=== PATIENT | female | born 1945 | race Caucasian/White ===

== ENCOUNTER → 2023-05-18 15:58 | Outpatient (REF) | payer MEDICARE, SELFPAY | LOC: HWRCS 15:58 | PROVIDERS: ATTENDING PHYSICIAN Internal Medicine Cardiovascular Disease; FAMILY PHYSICIAN Internal Medicine | DX: I42.1 Obstructive hypertrophic cardiomyopathy (principal) | CPT/HCPCS: 93306 ==

== ENCOUNTER → 2023-05-21 10:24 | Outpatient (REF) | payer MEDICARE, SELFPAY ==
[2023-05-21 11:47] LABS: % Basophils 0.5 % (0-2); % Eosinophils 1.9 % (0-6); % Immature Granulocytes 0.4 % (0-0.5); % Lymphocytes 25.9 % (20.5-51.1); % Monocytes 8.6 % (1.7-9.3); % Neutrophils 62.7 % (42.2-75.2); Absolute Eosinophils 0.1 10^3/uL (0-0.7); Absolute Monocytes 0.7 10^3/uL (0.1-0.6); Absolute Neutrophils 4.7 10^3/uL (1.4-6.5); Hematocrit 44.8 % (37.0-47.0); Hemoglobin 14.8 g/dL (12.0-16.0); Mean Corpuscular Hgb 33.9 pg (27.0-31.0); Mean Corpuscular Volume 102.5 fL (81.0-99.0); Mean Platelet Volume 11.7 fL (7.4-10.4); Nucleated Red Blood Cells % 0 %; Platelet Count 195 10^3/uL (130-400); Red Blood Cell Count 4.37 10^6/uL (4.20-5.40); Red Cell Dist. Width 12.9 % (11.5-14.5); White Blood Cell Count 7.6 10^3/uL (4.8-10.8)
[2023-05-21 12:14] LABS: Glycohemoglobin (HgbA1c) 6.1 % (4.0-5.6)
[2023-05-21 12:20] LABS: ALT (SGPT) 29 U/L (0-35); AST (SGOT) 31 U/L (14-36); Albumin 3.8 g/dl (3.5-5.0); Alkaline Phosphatase 94 U/L (38-126); Blood Urea Nitrogen 29 mg/dl (7-17); Calcium 9.5 mg/dl (8.4-10.2); Carbon Dioxide 33 mmol/L (22-30); Chloride 102 mmol/L (98-107); Glucose 138 mg/dl (70-99); HDL Cholesterol 40 mg/dl; LDL Cholesterol, Calculated 105 mg/dl; Potassium 4.5 mmol/L (3.5-5.1); Sodium 140 mmol/L (135-145); Total Bilirubin 1.2 mg/dl (0.2-1.3); Total Cholesterol 186 mg/dl (50-199); Total Protein 6.8 g/dl (6.3-8.2); Triglyceride 208 mg/dl (10-149); Very Low Density Lipoprotein 41 mg/dl (0-30); eGFR > 60.00
[2023-05-21 12:51] LABS: TSH Reflex To Free T4 7.41 uIU/ml (0.47-4.68)
[2023-05-21 13:09] LABS: Vitamin B12 333 pg/ml (239-931)
[2023-05-21 13:17] LABS: Free T4 1.98 ng/dl (0.78-2.19)
== END ==
LOC: HWLAB 10:24
PROVIDERS: ATTENDING PHYSICIAN Internal Medicine
DX: I10 Essential (primary) hypertension (principal); E66.9 Obesity, unspecified; I87.2 Venous insufficiency (chronic) (peripheral); R79.0 Abnormal level of blood mineral; E53.8 Deficiency of other specified B group vitamins; E03.9 Hypothyroidism, unspecified
CPT/HCPCS: 36415; 80053; 80061; 82607; 83036; 83735; 84439; 84443; 85025

== ENCOUNTER → 2023-06-29 13:03 | Outpatient (REF) | payer MEDICARE, SELFPAY | LOC: RAD 13:03 | PROVIDERS: ATTENDING PHYSICIAN Specialist; FAMILY PHYSICIAN Internal Medicine | DX: M47.812 Spondylosis without myelopathy or radiculopathy, cervical region (principal); M54.16 Radiculopathy, lumbar region | CPT/HCPCS: 72125; 72131 ==

== ENCOUNTER → 2023-07-06 13:04 | Outpatient (REF) | payer MEDICARE, SELFPAY | LOC: HWRAD 13:04 | PROVIDERS: ATTENDING PHYSICIAN Specialist; FAMILY PHYSICIAN Internal Medicine | DX: M25.552 Pain in left hip (principal) | CPT/HCPCS: 73502 ==

== ENCOUNTER → 2023-08-19 13:28 | Outpatient (REF) | payer MEDICARE, SELFPAY | LOC: RAD 13:28 | PROVIDERS: ATTENDING PHYSICIAN Podiatrist Foot Surgery; FAMILY PHYSICIAN Internal Medicine | DX: E11.51 Type 2 diabetes mellitus with diabetic peripheral angiopathy without gangrene (principal) | CPT/HCPCS: 93922; 93925 ==

== ENCOUNTER → 2023-10-06 08:27 | Outpatient (REF) | payer MEDICARE, SELFPAY ==
[2023-10-06 09:41] LABS: % Basophils 0.7 % (0-2); % Eosinophils 1.3 % (0-6); % Immature Granulocytes 1.1 % (0-0.5); % Lymphocytes 22.2 % (20.5-51.1); % Monocytes 8.3 % (1.7-9.3); % Neutrophils 66.4 % (42.2-75.2); Absolute Basophils 0.1 10^3/uL (0-0.2); Absolute Eosinophils 0.1 10^3/uL (0-0.7); Absolute Immature Granulocytes 0.1 10^3/uL (0-0.05); Absolute Lymphocytes 1.6 10^3/uL (1.2-3.4); Absolute Monocytes 0.6 10^3/uL (0.1-0.6); Absolute Neutrophils 4.7 10^3/uL (1.4-6.5); Hemoglobin 14.8 g/dL (12.0-16.0); Mean Corp Hgb Conc. 33.6 g/dL (33.0-37.0); Mean Corpuscular Hgb 34.8 pg (27.0-31.0); Mean Corpuscular Volume 103.5 fL (81.0-99.0); Mean Platelet Volume 10.9 fL (7.4-10.4); Nucleated Red Blood Cells % 0 %; Platelet Count 176 10^3/uL (130-400); Red Blood Cell Count 4.25 10^6/uL (4.20-5.40); Red Cell Dist. Width 13.4 % (11.5-14.5); White Blood Cell Count 7.1 10^3/uL (4.8-10.8)
[2023-10-06 10:41] LABS: ALT (SGPT) 25 U/L (0-35); AST (SGOT) 28 U/L (14-36); Albumin 3.4 g/dl (3.5-5.0); Alkaline Phosphatase 74 U/L (38-126); Blood Urea Nitrogen 23 mg/dl (7-17); Calcium 9.3 mg/dl (8.4-10.2); Carbon Dioxide 27 mmol/L (22-30); Chloride 103 mmol/L (98-107); Glucose 149 mg/dl (70-99); Potassium 4.4 mmol/L (3.5-5.1); Sodium 137 mmol/L (135-145); Total Bilirubin 0.8 mg/dl (0.2-1.3); Total Protein 5.9 g/dl (6.3-8.2); eGFR > 60.00
== END ==
LOC: HWLAB 08:27
PROVIDERS: ATTENDING PHYSICIAN Podiatrist Foot Surgery; FAMILY PHYSICIAN Internal Medicine
DX: M20.42 Other hammer toe(s) (acquired), left foot (principal)
CPT/HCPCS: 36415; 80053; 85025

== ENCOUNTER → 2023-10-15 12:41 | Outpatient (REF) | payer MEDICARE, SELFPAY | LOC: WOUND 12:41 | PROVIDERS: ATTENDING PHYSICIAN Surgery; FAMILY PHYSICIAN Internal Medicine | DX: I87.312 Chronic venous hypertension (idiopathic) with ulcer of left lower extremity (principal); L97.221 Non-pressure chronic ulcer of left calf limited to breakdown of skin; I87.2 Venous insufficiency (chronic) (peripheral); E11.9 Type 2 diabetes mellitus without complications; E66.9 Obesity, unspecified; I10 Essential (primary) hypertension | CPT/HCPCS: 29581; 99203 ==

== ENCOUNTER → 2023-10-21 13:52 | Outpatient (REF) | payer MEDICARE, SELFPAY | LOC: WOUND 13:52 | PROVIDERS: ATTENDING PHYSICIAN Surgery; FAMILY PHYSICIAN Internal Medicine | DX: I87.312 Chronic venous hypertension (idiopathic) with ulcer of left lower extremity (principal); L97.221 Non-pressure chronic ulcer of left calf limited to breakdown of skin; I87.2 Venous insufficiency (chronic) (peripheral); E11.9 Type 2 diabetes mellitus without complications; E66.9 Obesity, unspecified; I10 Essential (primary) hypertension | CPT/HCPCS: 29581; 99213 ==

== ENCOUNTER → 2023-10-27 12:28 | Outpatient (REF) | payer MEDICARE, SELFPAY | LOC: WOUND 12:28 | PROVIDERS: ATTENDING PHYSICIAN Surgery; FAMILY PHYSICIAN Internal Medicine | DX: I87.312 Chronic venous hypertension (idiopathic) with ulcer of left lower extremity (principal); L97.221 Non-pressure chronic ulcer of left calf limited to breakdown of skin; I87.2 Venous insufficiency (chronic) (peripheral); E11.9 Type 2 diabetes mellitus without complications; E66.9 Obesity, unspecified; I10 Essential (primary) hypertension | CPT/HCPCS: 99212 ==

== ENCOUNTER → 2024-01-01 07:59 | Outpatient (REF) | payer MEDICARE, SELFPAY ==
[2024-01-01 09:26] LABS: % Basophils 0.8 % (0-2); % Eosinophils 1.9 % (0-6); % Immature Granulocytes 0.5 % (0-0.5); % Lymphocytes 24.6 % (20.5-51.1); % Monocytes 8.3 % (1.7-9.3); % Neutrophils 63.9 % (42.2-75.2); Absolute Basophils 0.1 10^3/uL (0-0.2); Absolute Eosinophils 0.1 10^3/uL (0-0.7); Absolute Lymphocytes 1.8 10^3/uL (1.2-3.4); Absolute Monocytes 0.6 10^3/uL (0.1-0.6); Absolute Neutrophils 4.8 10^3/uL (1.4-6.5); Hematocrit 45.6 % (37.0-47.0); Hemoglobin 15.1 g/dL (12.0-16.0); Mean Corp Hgb Conc. 33.1 g/dL (33.0-37.0); Mean Corpuscular Hgb 34.2 pg (27.0-31.0); Mean Corpuscular Volume 103.4 fL (81.0-99.0); Mean Platelet Volume 11.9 fL (7.4-10.4); Nucleated Red Blood Cells % 0 %; Platelet Count 196 10^3/uL (130-400); Red Blood Cell Count 4.41 10^6/uL (4.20-5.40); Red Cell Dist. Width 12.5 % (11.5-14.5); White Blood Cell Count 7.4 10^3/uL (4.8-10.8)
[2024-01-01 09:57] LABS: Erythrocyte Sed Rate 17 mm/hour (0-20)
[2024-01-03 10:52] LABS: Rheumatoid Agglutinin Less Than 10 IU (<10 IU)
== END ==
LOC: REG 07:59
PROVIDERS: ATTENDING PHYSICIAN Internal Medicine
DX: M25.559 Pain in unspecified hip (principal); M19.90 Unspecified osteoarthritis, unspecified site
CPT/HCPCS: 36415; 73502; 85025; 85652; 86430

== ENCOUNTER → 2024-02-09 11:44 | Outpatient (REF) | payer MEDICARE, SELFPAY | LOC: MRI 3T 11:44 | PROVIDERS: ATTENDING PHYSICIAN Specialist; FAMILY PHYSICIAN Internal Medicine | DX: M54.16 Radiculopathy, lumbar region (principal); M54.50 Low back pain, unspecified; M25.552 Pain in left hip | CPT/HCPCS: 72148; 73721 ==

== ENCOUNTER 2024-05-05 13:30 | Inpatient (IN) | payer MEDICARE, SELFPAY ==
[2024-05-03 16:03] VITALS: BP 148/85
--- NOTE | 2024-05-03 16:08 | ED.GENMED ---
ED Provider Triage
<Garrison Collins PA-C - Last Filed: 05/03/24 16:09>
-
Patient seen by provider in Triage?: Seen in Triage
Attestation: A medical screening examination has been initiated by a qualified medical provider. Based on the assessment performed at this time, it has been determined that an emergent medical condition may exist and the patient has been informed
that further medical evaluation and possible additional diagnostic testing may be needed.
HPI: 79-year-old female presents with family who states the patient is confused. She is hallucinating seeing people that are not there and talking to people that are not there. They noticed that her speech has been slow living usual. And overall
she is very weak. This is progressed over the last 2 weeks. Saw family doctor several days ago and was thought to potentially have dementia. She is also being treated for wounds on the lower legs. CT head chest x-ray COVID flu urinalysis and
labs ordered
GENERAL: Alert , in no apparent distress
EYE: No visual abnormalities.
NECK: Trachea midline
ENT: No visible abnormalities.
LUNGS: No acute respiratory distress
NEUROLOGICAL: Alert and oriented
SKIN: Skin intact. No visible changes.
MUSCULOSKELETAL: Moving extremities normally
PSYCH: Normal and appropriate interaction.
This is a medical evaluation conducted in person to initiate diagnostic evaluation and provide initial therapeutics. Please see further documentation by the treating clinician.
History of Present Illness
<Garrison Collins PA-C - Last Filed: 05/03/24 16:09>
General
Chief Complaint: Change in Mental Status
Time Seen by Provider: 05/03/24 19:27
<Josiah Garner MD - Last Filed: 05/04/24 03:10>
General
Source: patient and family
Exam Limitations: none
Nursing documentation reviewed up to this point in time: agreed with
History of Present Illness
History of Present Illness:
Patient presents to ED accompanied by her daughter, who lives with the patient, secondary to increased confusion and slowed speech over the past 1 month, worsened over the past 1 week. Per daughter, patient has had multiple moments of
hallucinations, talking to people that are not present at the moment. Patient was evaluated by her primary care physician 2 days ago for similar complaint, along with ongoing right leg ulcer secondary to venous stasis. There was no formal
recommendation provided by primary care physician, although there is documentation of mild dementia noted on her chart. Today, daughter states that she received a phone call from patient while she was at work, requesting for her to come home.
Patient reported feeling confused and seeing people that are not in the house. Daughter spoke with patient's primary Siva's office who advised patient come to ED for an evaluation. Otherwise, patient has been eating and drinking as usual. Denies
recent illness. Denies recent change in medications or diet. Denies previous history of similar symptoms. Patient does have erratic sleeping pattern, according to daughter.
Past History
<Garrison Collins PA-C - Last Filed: 05/03/24 16:09>
Past History
ED Past Medical History: Arrthythmia (V. tach), HTN, Hypercholesterolemia, Hypothyroidism and Other (RA, colon Polyps)
ED Past Surgical History: Cholecystectomy, Gynecological (Hysterectomy), Orthopedic (bilateral knee replacements) and Other (noncontributory )
Social History
Tobacco: Former smoker (quit 20 years ago)
Alcohol: None
Drug: None
Personal:
Living: with family
Employment: Retired
Family History
Family History: Other (n/c)
Review of Systems
<Josiah Garner MD - Last Filed: 05/04/24 03:10>
Review of Systems
Allergies reviewed?: Yes
All Other Systems: ROS reviewed and negative except as documented in HPI and ROS
Constitutional: Reports no symptoms; Denies fever
EENT: Reports no symptoms
Respiratory: Reports no symptoms; Denies cough
Cardiac: Reports no symptoms
ABD/GI: Reports no symptoms; Denies vomiting or diarrhea
: Reports no symptoms
Musculoskeletal: Reports no symptoms
Skin: Reports other (Leg wound)
Neurological: Reports other (Confusion)
Psychiatric: Reports hallucinations
Phy Exam
<Josiah Garner MD - Last Filed: 05/04/24 03:10>
Physical Exam
Physical Exam:
Physical Exam
General: no apparent distress, not acutely ill. afebrile
Head: nc/at. eomi
Neck: supple. normal range of motion.
Heart: s1/s2 regular rate and rhythm, no murmur.
Lungs: no acute respiratory distress. clear bilaterally
Abdomen: normal bowel sounds. not tender.
Neuro: alert and oriented x 3. no focal neurological deficits. normal speech.
Skin: b/l chronically appearing edema with superficial ulcer noted over RLE without warmth/tenderness/purulent drainage
Psychiatric: well kept. interactive and cooperative
Extremities: no edema. no calf tenderness.
Course
<Garrison Collins PA-C - Last Filed: 05/03/24 16:09>
Orders/Labs/Results
Orders:
Orders
05/03/24 16:04
CT Head W/o Iv Contrast Urgent
Comment:
Reason For Exam: confusion
05/03/24 16:06
CR Chest - 2 Views Urgent
Comment:
Reason For Exam: sob
05/03/24 16:22
COVID-19 Antigen Urgent
Source: Nasal Swab
Influenza A+B Rapid Molecular Urgent
HEATHER Source: Nasal Swab
Specimen Description:
05/03/24 16:23
Complete Blood Count/With Diff Urgent
Comprehensive Metabolic Panel Urgent
Free T4 Urgent
Magnesium Urgent
TSH Reflex To Free T4 Urgent
Comment: ADD ON
Vitamin B12 Urgent
Comment: ADD ON
02/26/25 19:43
Add On- LAB Urgent
Tests Added?: magnesium, TSH to reflex free T4, vitamin B12
05/03/24 20:58
0.9% Sodium Chloride 500 ml [Nss] 500 ml IV BOLUS
05/03/24 21:12
Blood Culture Q30M
HEATHER Source: Blood/Venous
Specimen Description:
Blood Culture Q30M
HEATHER Source: Blood/Venous
Specimen Description:
05/03/24 22:32
Urinalysis Reflex To Culture Urgent
Date Specimen was Collected: 05/03/24
Time Specimen was Collected: 19:37
Urine Microscopic Reflex Cult Urgent
05/03/24 23:00
Flush (0.9% Sodium Chloride) [Flush (Nss)] See Dose Instructions IV PER PROTOCOL
05/03/24 23:23
Admit/Transfer Patient As Directed
Co-Sign Provider:
Level of Care: Observation services
Assign to:: Medical/Surgical
Physician / Group: peggy
Diagnosis: hallucinations
Code Status As Directed
Resuscitation Status: Full Code
PRN Pain Medication Management As Directed
May give lesser potent ordered pain med per pt: Yes
preference::
Protocol:: Medication orders for pain may be administered in a
manner that supports deferring to patient preference
when the pt is:
- Requesting an ordered lesser potent pain medication.
Least to most potent pain medications are defined
as: acetaminophen < NSAID < tramadol < opioids
(morphine, oxycodone, hydromorphone).
- Requesting a lesser dose of the same medication IF
ORDERED.
- Requesting a less intrusive route of administration
if both routes are prescribed by the provider (PO <
IV).
05/04/24 01:36
WOUND/OSTOMY CONSULT Routine
Reason for Consult: right leg
VTE Contraindication Routine
VTE Mechanical Device Contraindication: Medical Contraindication
Pharmocologic Contraindication: Medical Contraindication
Activity As Directed
Activity Level: As Tolerated
Vital Signs As Directed
Frequency: Per unit guidelines
05/04/24 06:00
Complete Blood Count/With Diff IN AM
Comprehensive Metabolic Panel IN AM
Levothyroxine [Synthroid] 137 mcg PO DAILY @ 0600
05/04/24 08:00
Amiodarone [Pacerone] 200 mg PO DAILY
Apixaban [Eliquis] 5 mg PO BID
Calcium Carbonate/Vitamin D3 [Oscal 500 + D] 500 mg PO BID
Cyanocobalamin [Vitamin B-12] 1,000 mcg PO DAILY
Magnesium Oxide 500 mg PO DAILY
Metoprolol Xl [Toprol Xl] 25 mg PO BID
Metoprolol Xl [Toprol Xl] 50 mg PO BID
Multivitamin [Theragran] 1 tablet PO DAILY
05/04/24 Dinner
Regular
At Your Request: Full Participation
05/04/24 22:00
Melatonin 5 mg PO HS
Abnormal Lab Results
05/03/24 05/03/24
16:23 22:32
MCV 104.3 H fL
(81.0-99.0)
MCH 33.6 H pg
(27.0-31.0)
MCHC 32.2 L g/dL
(33.0-37.0)
RDW 15.6 H %
(11.5-14.5)
MPV 11.3 H fL
(7.4-10.4)
Absolute Lymphs (auto) 1.1 L 10^3/uL
(1.2-3.4)
Lymphocytes % 15.6 L %
(20.5-51.1)
Potassium 5.2 H mmol/L
(3.5-5.1)
Carbon Dioxide 32 H mmol/L
(22-30)
BUN 41 H mg/dl
(7-17)
Creatinine 1.1 H mg/dL
(0.6-1.0)
Glucose 138 H mg/dl
(70-99)
TSH (Reflex) 6.49 H uIU/ml
(0.47-4.68)
Urine Bacteria (Reflex) Few A
(Negative)
Urine Albumin (Reflex) 1+ A
(Neg - Trace)
05/03/24 16:23
05/03/24 16:23
Vital Signs
Initial and Last Documented VS:
Initial Vital Signs
Pulse Resp BP Pulse Ox
63 20 148/85 97
05/03/24 16:03 05/03/24 16:03 05/03/24 16:03 05/03/24 16:03
Last Documented Vital Signs
Pulse Resp BP Pulse Ox
60 16 123/75 94
05/03/24 20:39 05/03/24 20:39 05/03/24 18:39 05/03/24 18:39
<Josiah Garner MD - Last Filed: 05/04/24 03:10>
Orders/Labs/Results
Orders:
Orders
05/03/24 16:04
CT Head W/o Iv Contrast Urgent
Comment:
Reason For Exam: confusion
05/03/24 16:06
CR Chest - 2 Views Urgent
Comment:
Reason For Exam: sob
05/03/24 16:22
COVID-19 Antigen Urgent
Source: Nasal Swab
Influenza A+B Rapid Molecular Urgent
HEATHER Source: Nasal Swab
Specimen Description:
05/03/24 16:23
Complete Blood Count/With Diff Urgent
Comprehensive Metabolic Panel Urgent
Free T4 Urgent
Magnesium Urgent
TSH Reflex To Free T4 Urgent
Comment: ADD ON
Vitamin B12 Urgent
Comment: ADD ON
05/03/24 19:43
Add On- LAB Urgent
Tests Added?: magnesium, TSH to reflex free T4, vitamin B12
05/03/24 20:58
0.9% Sodium Chloride 500 ml [Nss] 500 ml IV BOLUS
05/03/24 21:12
Blood Culture Q30M
HEATHER Source: Blood/Venous
Specimen Description:
Blood Culture Q30M
HEATHER Source: Blood/Venous
Specimen Description:
05/03/24 22:32
Urinalysis Reflex To Culture Urgent
Date Specimen was Collected: 05/03/24
Time Specimen was Collected: 19:37
Urine Microscopic Reflex Cult Urgent
05/03/24 23:00
Flush (0.9% Sodium Chloride) [Flush (Nss)] See Dose Instructions IV PER PROTOCOL
05/03/24 23:23
Admit/Transfer Patient As Directed
Co-Sign Provider:
Level of Care: Observation services
Assign to:: Medical/Surgical
Physician / Group: peggy
Diagnosis: hallucinations
Code Status As Directed
Resuscitation Status: Full Code
PRN Pain Medication Management As Directed
May give lesser potent ordered pain med per pt: Yes
preference::
Protocol:: Medication orders for pain may be administered in a
manner that supports deferring to patient preference
when the pt is:
- Requesting an ordered lesser potent pain medication.
Least to most potent pain medications are defined
as: acetaminophen < NSAID < tramadol < opioids
(morphine, oxycodone, hydromorphone).
- Requesting a lesser dose of the same medication IF
ORDERED.
- Requesting a less intrusive route of administration
if both routes are prescribed by the provider (PO <
IV).
05/04/24 01:36
WOUND/OSTOMY CONSULT Routine
Reason for Consult: right leg
VTE Contraindication Routine
VTE Mechanical Device Contraindication: Medical Contraindication
Pharmocologic Contraindication: Medical Contraindication
Activity As Directed
Activity Level: As Tolerated
Vital Signs As Directed
Frequency: Per unit guidelines
05/04/24 06:00
Complete Blood Count/With Diff IN AM
Comprehensive Metabolic Panel IN AM
Levothyroxine [Synthroid] 137 mcg PO DAILY @ 0600
05/04/24 08:00
Amiodarone [Pacerone] 200 mg PO DAILY
Apixaban [Eliquis] 5 mg PO BID
Calcium Carbonate/Vitamin D3 [Oscal 500 + D] 500 mg PO BID
Cyanocobalamin [Vitamin B-12] 1,000 mcg PO DAILY
Magnesium Oxide 500 mg PO DAILY
Metoprolol Xl [Toprol Xl] 25 mg PO BID
Metoprolol Xl [Toprol Xl] 50 mg PO BID
Multivitamin [Theragran] 1 tablet PO DAILY
05/04/24 Dinner
Regular
At Your Request: Full Participation
05/04/24 22:00
Melatonin 5 mg PO HS
Abnormal Lab Results
05/03/24 05/03/24
16:23 22:32
MCV 104.3 H fL
(81.0-99.0)
MCH 33.6 H pg
(27.0-31.0)
MCHC 32.2 L g/dL
(33.0-37.0)
RDW 15.6 H %
(11.5-14.5)
MPV 11.3 H fL
(7.4-10.4)
Absolute Lymphs (auto) 1.1 L 10^3/uL
(1.2-3.4)
Lymphocytes % 15.6 L %
(20.5-51.1)
Potassium 5.2 H mmol/L
(3.5-5.1)
Carbon Dioxide 32 H mmol/L
(22-30)
BUN 41 H mg/dl
(7-17)
Creatinine 1.1 H mg/dL
(0.6-1.0)
Glucose 138 H mg/dl
(70-99)
TSH (Reflex) 6.49 H uIU/ml
(0.47-4.68)
Urine Bacteria (Reflex) Few A
(Negative)
Urine Albumin (Reflex) 1+ A
(Neg - Trace)
05/03/24 16:23
05/03/24 16:23
Vital Signs
Initial and Last Documented VS:
Initial Vital Signs
Pulse Resp BP Pulse Ox
63 20 148/85 97
05/03/24 16:03 05/03/24 16:03 05/03/24 16:03 05/03/24 16:03
Last Documented Vital Signs
Pulse Resp BP Pulse Ox
60 16 123/75 94
05/03/24 20:39 05/03/24 20:39 05/03/24 18:39 05/03/24 18:39
<Josiah Garner MD - Last Filed: 05/04/24 03:10>
MDM/Problems Addressed
MDM/Problems Addressed:
CT head: No acute findings. Patient's presenting symptoms likely multifactorial, including likely insomnia and/or dehydration, as evidenced by blood work along with clinical history of lack of oral intake at home. However, with patient's
presenting open wound, difficult to exclude potential infection as etiology for her symptoms or possible dementia. However, clinically, wound does not appear infected, more likely representation of underlying edema. As such, antibiotics will be
withheld. Blood culture pending. Patient will be admitted for further evaluation and treatment.
<Josiah Garner MD - Last Filed: 05/04/24 03:10>
*Critical Care Note
Total Time (30-74mins, 75-104mins- exclusive of procedures): Not Applicable
ED Attending Note
<Garrison Collins PA-C - Last Filed: 05/03/24 16:09>
-
Portions of this chart may have been created with voice recognition software.� Occasional wrong word or��sound alike� substitutions may have occurred due to the inherent limitations of voice recognition software.
Discharge Plan
Departure
Patient Disposition: Admit
Date of Disposition: 05/03/24
Time of Disposition: 22:47
Admit to: Med/Surg
Presentation/result/management discussed w/ accepting MD/DO: Hospitalist
Discharge Problem:
Altered mental status
Interventions
Interventions:
*Risk Screen - Suicide Last Done: 05/03/24 16:03
*General Assessment Last Done: 05/03/24 16:03
*Neglect/Abuse Screening Last Done: 05/03/24 16:03
*ED COVID-19 Vaccine History Last Done: 05/03/24 19:31
ED- Neurological Assessment Last Done: 05/03/24 19:53
ED Swallowing Screen Last Done: 05/03/24 19:53
[2024-05-03 16:34] LABS: % Basophils 0.3 % (0-2); % Eosinophils 1.1 % (0-6); % Immature Granulocytes 0.4 % (0-0.5); % Lymphocytes 15.6 % (20.5-51.1); % Monocytes 7.9 % (1.7-9.3); % Neutrophils 74.7 % (42.2-75.2); Absolute Eosinophils 0.1 10^3/uL (0-0.7); Absolute Lymphocytes 1.1 10^3/uL (1.2-3.4); Absolute Monocytes 0.6 10^3/uL (0.1-0.6); Absolute Neutrophils 5.3 10^3/uL (1.4-6.5); Hematocrit 46.3 % (37.0-47.0); Hemoglobin 14.9 g/dL (12.0-16.0); Mean Corp Hgb Conc. 32.2 g/dL (33.0-37.0); Mean Corpuscular Hgb 33.6 pg (27.0-31.0); Mean Corpuscular Volume 104.3 fL (81.0-99.0); Mean Platelet Volume 11.3 fL (7.4-10.4); Nucleated Red Blood Cells % 0 %; Platelet Count 149 10^3/uL (130-400); Red Blood Cell Count 4.44 10^6/uL (4.20-5.40); Red Cell Dist. Width 15.6 % (11.5-14.5); White Blood Cell Count 7.1 10^3/uL (4.8-10.8)
[2024-05-03 16:46] LABS: ALT (SGPT) 35 U/L (0-35); AST (SGOT) 35 U/L (14-36); Albumin 4.2 g/dl (3.5-5.0); Alkaline Phosphatase 109 U/L (38-126); Blood Urea Nitrogen 41 mg/dl (7-17); Calcium 9.7 mg/dl (8.4-10.2); Carbon Dioxide 32 mmol/L (22-30); Chloride 102 mmol/L (98-107); Glucose 138 mg/dl (70-99); Potassium 5.2 mmol/L (3.5-5.1); Sodium 140 mmol/L (135-145); Total Bilirubin 1.1 mg/dl (0.2-1.3); Total Protein 7.2 g/dl (6.3-8.2)
[2024-05-03 16:59] LABS: COVID-19 Antigen Negative (Negative)
[2024-05-03 18:39] VITALS: BP 123/75
[2024-05-03 20:20] LABS: Magnesium 2.3 mg/dl (1.6-2.3)
[2024-05-03 21:05] LABS: TSH Reflex To Free T4 6.49 uIU/ml (0.47-4.68)
[2024-05-03] MEDS: NSS 500 IV (21:11)
[2024-05-03 21:24] LABS: Vitamin B12 913 pg/ml (239-931)
[2024-05-03 21:32] LABS: Free T4 2.15 ng/dl (0.78-2.19)
[2024-05-03 22:37] LABS: Urine Albumin 1+ (Neg - Trace); Urine Bilirubin Negative (Negative); Urine Character Clear (Clear); Urine Color Yellow; Urine Glucose Negative (Negative); Urine Ketone Negative (Negative); Urine Leukocyte Negative (Negative); Urine Nitrite Negative (Negative); Urine Occult Blood Negative (Negative); Urine Specific Gravity 1.015 (<1.030); Urine Urobilinogen Negative (Neg - 1+)
[2024-05-03 22:50] LABS: Urine Bacteria Few (Negative); Urine Red Blood Cell 0-2 /HPF (0-2); Urine Squamous Cell 16-20 /LPF (Few); Urine White Cell 0-2 /HPF (0-5)
--- NOTE | 2024-05-03 23:26 | HPS.HSE ---
Family Physician
-
Family Physician: Jp Mccabe
Chief Complaint
-
hallucinations
History of Present Illness
79-year-old female past medical history of hypertrophic cardiomyopathy, ventricular tachycardia status post ICD, paroxysmal atrial fibrillation, hypertension, obesity, rheumatoid arthritis, presenting with confusion. She is hallucinating and seeing
people that are not there and talking to people that are not there. Her speech has been slower than usual. She feels weaker. This has progressed over the past 2 weeks.
She has a history of wounds on her legs. She had new wounds develop in the past 1 to 2 weeks. These wounds appeared after this onset hallucinations. She is supposed to see wound care but her doctor is on vacation.
She denies any new medications. Denies nausea or vomiting. Denies urinary symptoms or diarrhea. Denies any headache. Denies any numbness or tingling or focal weakness.
She has a history of insomnia but this has been worse recently. She is only been sleeping 3 to 4 hours which is a little less than her usual and waking up during sleep. Her mood has been feeling low recently but denies any depression or suicidal
thoughts.
She denies smoking or alcohol use.
Medical History
Past Medical History
Past Medical History: Reports Other (hypertrophic cardiomyopathy, ventricular tachycardia status post ICD, paroxysmal atrial fibrillation, hypertension, obesity, rheumatoid arthritis, )
Past Surgical History: Reports None
Social History
Tobacco: Non-smoker
Alcohol: None
Drug: None
Family History
Family History: Not pertinent
Allergies / Home Medications
Allergies reflects when Allergies were last updated in [facility].
Home Medications with original date entered in [facility]
Allergy/Medication List:
Allergies
Allergy/AdvReac Type Severity Reaction Status Date / Time
codeine Allergy Severe nausea/vomi Verified 05/03/24 16:10
ting
celecoxib Allergy Unknown stomach Verified 05/03/24 16:10
pains
Home Medications
calcium 250 mg (as phosphate)-vit D3 10 mcg (400 unit) chewable tablet (Caltrate Gummy Bites) 1 ea PO BID 02/19/17
apixaban 5 mg tablet (Eliquis) 5 mg PO BID #60 tabs 05/18/17
cyanocobalamin (vitamin B-12) 1,000 mcg tablet 1,000 mcg PO DAILY 02/19/18
magnesium oxide 500 mg PO DAILY ##30 02/21/18
amiodarone 200 mg tablet (Pacerone) 200 mg PO DAILY 12/23/18
levothyroxine 137 mcg tablet (Levoxyl) 137 mcg PO DAILY 05/03/24
lisinopril 20 mg tablet 20 mg PO DAILY 05/03/24
metoprolol succinate 25 mg tablet,extended release 24 hr 25 mg PO BID 05/03/24
metoprolol succinate 50 mg tablet,extended release 24 hr 50 mg PO BID 05/03/24
therapeutic multivitamin 1 tab PO DAILY 05/03/24
Review of Systems
-
History Source: Patient
A 12 point ROS was completed and negative except as noted: Yes
Constitutional: Reports No Symptoms
EENT: Reports No Symptoms
Respiratory: Reports No Symptoms
Cardiac: Reports No Symptoms
Abdomen/GI: Reports No Symptoms
: Reports No Symptoms
Musculoskeletal: Reports No Symptoms
Skin: Reports No Symptoms
Neurological: Reports No Symptoms
Endocrine: Reports No Symptoms
Hematologic/Lymphatic: Reports No Symptoms
Psych: Reports No Symptoms
Physical Exam
Vital Signs
Vital Signs
Pulse Resp BP Pulse Ox
60 16 123/75 94
05/03/24 20:39 05/03/24 20:39 05/03/24 18:39 05/03/24 18:39
Physical Exam
General: Well Developed, Well Nourished and No Apparent Distress
HEENT: NormoCephalic, Moist mucous membranes and Atraumatic
Respiratory: Clear
Cardiac: S1/S2 and Regular Rhythm; No Murmur or Rub
GI: Soft, Non Tender, Non Distended and Normal Bowel Sounds; No Organomegaly
Rectal: Deferred by Provider
Musculoskeletal: No Clubbing, No Cyanosis and No Edema
Skin: No Rash
Neuro: Nonfocal/grossly intact
Laboratory Results
-
05/03/24 16:23
05/03/24 16:23
Laboratory Results
Total Bilirubin 1.1 mg/dl (0.2-1.3) 05/03/24 16:23
AST 35 U/L (14-36) 05/03/24 16:23
ALT 35 U/L (0-35) 05/03/24 16:23
Alkaline Phosphatase 109 U/L (38-126) 05/03/24 16:23
Data Reviewed
-
Lab Data: Labs Reviewed by me
Old Records: Reviewed
Impression/Plan
-
IMPRESSION:
PLAN:
# Altered mental status/visual and auditory hallucinations likely secondary to insomnia
-Urinalysis unremarkable
-Chest x-ray unremarkable
-CT head shows no acute abnormality
-COVID and flu negative
-Blood cultures pending
-Melatonin
# Right lower extremity wounds
-Do not appear infected
-Wound care
# Slight SNOW
# Hyperkalemia
-IV fluids given, hold further fluids
-Hold lisinopril
Hypertrophic cardiomyopathy
-EF of 75%
Particular tachycardia status post ICD
Paroxysmal atrial fibrillation
-Continue amiodarone
-Continue Eliquis
-Continue metoprolol
Essential hypertension
-Hold lisinopril
Obesity
Rheumatoid arthritis
Hypothyroidism
-Continue levothyroxine
Full code
DVT prophylaxis�Eliquis
Regular diet
[2024-05-04] VITALS (8 sets, daily range): BP systolic 112–142; BP diastolic 57–77; BMI 43.0
[2024-05-04] MEDS: SYNTHROID 137 MCG PO (05:56)
[2024-05-04 07:48] LABS: % Basophils 0.4 % (0-2); % Eosinophils 1.8 % (0-6); % Immature Granulocytes 0.5 % (0-0.5); % Monocytes 8.9 % (1.7-9.3); % Neutrophils 68.4 % (42.2-75.2); Absolute Eosinophils 0.1 10^3/uL (0-0.7); Absolute Lymphocytes 1.1 10^3/uL (1.2-3.4); Absolute Monocytes 0.5 10^3/uL (0.1-0.6); Absolute Neutrophils 3.8 10^3/uL (1.4-6.5); Hematocrit 41.6 % (37.0-47.0); Hemoglobin 13.4 g/dL (12.0-16.0); Mean Corp Hgb Conc. 32.2 g/dL (33.0-37.0); Mean Corpuscular Volume 105.6 fL (81.0-99.0); Mean Platelet Volume 11.9 fL (7.4-10.4); Nucleated Red Blood Cells % 0 %; Platelet Count 130 10^3/uL (130-400); Red Blood Cell Count 3.94 10^6/uL (4.20-5.40); Red Cell Dist. Width 15.7 % (11.5-14.5); White Blood Cell Count 5.5 10^3/uL (4.8-10.8)
[2024-05-04 08:13] LABS: ALT (SGPT) 30 U/L (0-35); AST (SGOT) 30 U/L (14-36); Albumin 3.3 g/dl (3.5-5.0); Alkaline Phosphatase 86 U/L (38-126); Blood Urea Nitrogen 35 mg/dl (7-17); Calcium 9.2 mg/dl (8.4-10.2); Carbon Dioxide 32 mmol/L (22-30); Chloride 104 mmol/L (98-107); Glucose 206 mg/dl (70-99); Potassium 4.5 mmol/L (3.5-5.1); Sodium 139 mmol/L (135-145); Total Protein 5.9 g/dl (6.3-8.2); eGFR 56.95
[2024-05-04] MEDS: ELIQUIS 5 MG PO ×2 (08:18→20:11)
[2024-05-04] MEDS: PACERONE 200 MG PO (08:19)
[2024-05-04] MEDS: VITAMIN B-12 1000 MCG PO (08:19)
[2024-05-04] MEDS: THERAGRAN 1 TABLET PO (08:21)
[2024-05-04] MEDS: TOPROL XL 25 MG PO ×2 (08:21→20:11)
[2024-05-04] MEDS: TOPROL XL 50 MG PO ×2 (08:21→20:11)
[2024-05-04] MEDS: MAGNESIUM OXIDE 500 MG PO (08:21)
[2024-05-04] MEDS: OSCAL 500 + D 500 MG PO ×2 (08:22→20:11)
--- NOTE | 2024-05-04 09:05 | WOUNDNOTE ---
BILATERAL LOWER LEGS
--- NOTE | 2024-05-04 09:06 | WOUNDNOTE ---
BILATERAL LOWER LEGS
--- NOTE | 2024-05-04 09:06 | VATNOTE ---
RIGHT LOWER LEG
--- NOTE | 2024-05-04 09:07 | WOUNDNOTE ---
RIGHT LOWER LEG
--- NOTE | 2024-05-04 09:08 | WOUNDNOTE ---
LEFT HEEL/LEFT LOWER POSTERIOR LEG
--- NOTE | 2024-05-04 09:11 | WOUNDNOTE ---
RIGHT BREAST FOLD
--- NOTE | 2024-05-04 09:11 | WOUNDNOTE ---
RIGHT BREAST FOLD
--- NOTE | 2024-05-04 09:12 | WOUNDNOTE ---
SACRAL/COCCYX CREASE
--- NOTE | 2024-05-04 09:13 | WOUNDNOTE ---
SACRAL/COCCYX CREASE
--- NOTE | 2024-05-04 09:19 | WOUNDNOTE ---
LEFT BREAST FOLD
--- NOTE | 2024-05-04 09:22 | WOUNDNOTE ---
WO RN note: Patient admitted with hallucinations. Patient lives at home with daughter.
See H&P for complete history.
PMH: CM, lymphedema, ICD, a fib (Eliquis), HTN, obesity, RA, leg ulcers.
Wound Location and type/assessment: Patient admitted with: RLE dermal venous stasis ulcers, pink, moderate serous drainage. Skin mildly red around ulcer areas. +Hemosiderosis. +Palpable R pedal pulse. Sacral/coccyx blanchable red, MASD.
Ashwini/thigh/groin MASD. Abdominal and breast folds MASD. Patient wears knee high compression stockings (zipper type). Patient has an appointment at [facility] on Wednesday.
Appetite: good.
Pressure redistribution devices in place: ED stretcher. Patient can turn self. She likes the HOB elevated. MAGDA Yates plans to transfer patient onto a [facility] air bed. Spoke with [facility].
Plan: RLE dressing changed by MAGDA Chavez. Heels off bed with pillow. Knee high Josue wrap applied.
Will confirm orders with Dr. Giron and updated MAGDA Yates.
Care plan to be updated and will follow as needed.
Note to case management requested for discharge: VN. Patient interested.
Patient to follow up at wound care center upon discharge.
--- NOTE | 2024-05-04 09:25 | W.PN.HOSP.TC ---
Addendum entered and electronically signed by Chirag Giron MD 05/04/24 17:24:
She was on melatonin so maybe try Ambien tonight or trazodone.
Original Note:
Today's Communication/Plan
-
Melatonin
Assessment / Plan
Assessment / Plan
Physical exam:
General: Well Developed, Well Nourished and No Apparent Distress
HEENT: Normocephalic, Atraumatic and Moist Mucous Membranes
Respiratory: Clear to Auscultation; Negative Wheezes, Rales or Rhonchi
Cardiac: Regular Rhythm and S1/S2
GI: Soft, Nontender and Nondistended
Musculoskeletal: No Clubbing, No Cyanosis and No Edema
Neuro: Awake, Alert and Oriented
Psych: Calm
A/P:
# Altered mental status/visual and auditory hallucinations likely secondary to insomnia versus medications related
-Urinalysis unremarkable
-Chest x-ray unremarkable
-CT head shows no acute abnormality
-COVID and flu negative
-Blood cultures pending
-Start melatonin tonight
-[facility] today and not much they would offer as inpatient but available if needed (?amiodarone related but can discuss with cardiology outpatient).
-I tried to call today but unable to reach daughter
# Right lower extremity wounds
-Do not appear infected
-Wound care
# Renal insufficiency
# Hyperkalemia
-IV fluids given, hold further fluids
-Hold lisinopril
-Creatinine improved and potassium improved
Hypertrophic cardiomyopathy
-EF of 75%
Particular tachycardia status post ICD
Paroxysmal atrial fibrillation
-Continue amiodarone
-Continue Eliquis
-Continue metoprolol
Essential hypertension
-Hold lisinopril
Obesity
Rheumatoid arthritis
Hypothyroidism
-Continue levothyroxine
Full code
DVT prophylaxis�Eliquis
Anticipated Discharge: 24 - 48 hours
Subjective/Interval History
-
Date of Service: May 04, 2024
Patient still having some visual hallucinations. No fever.
Objective Data
-
Labs:
Laboratory Results
05/04/24
06:03
WBC 5.5
Hgb 13.4
Hct 41.6
Plt Count 130
Sodium 139
Potassium 4.5
Chloride 104
Carbon Dioxide 32 H
BUN 35 H
Creatinine 1.0
Glucose 206 H
Calcium 9.2
Total Bilirubin 1.0
AST 30
ALT 30
Alkaline Phosphatase 86
Vital Signs:
Vital Signs
Pulse Resp BP Pulse Ox
60 13 112/75 94
05/04/24 05:00 05/04/24 05:00 05/04/24 08:19 05/03/24 18:39
[2024-05-04 12:05] LABS: Glucose - Point of Care 147 mg/dl (70-99)
[2024-05-04] MEDS: NOVOLOG FLEXPEN-LOW RESISTANCE SC ×2 (13:00→18:52)
[2024-05-04 18:14] LABS: Glucose - Point of Care 137 mg/dl (70-99)
[2024-05-04] MEDS: DESENEX/MITRAZOL/ZEASORB TOPICAL (20:11)
[2024-05-04] MEDS: AMBIEN 5 MG PO (21:31)
[2024-05-04 21:35] LABS: Glucose - Point of Care 122 mg/dl (70-99)
--- NOTE | 2024-05-04 22:28 | PTCARENOTE ---
Patient arrived from ED. AAO x 4. Patient not actively having hallucinations upon arrival but, did confirm that she did have hallucinations, while down in the ED. Patient denies pain. Dual skin check completed with Sonali Romero RN. Per patient, she is
continent of urine but does have some stress/urgency incontinence. OOB x 1 assist with walker. Patient oriented to room, bed alarm in place. Patient educated on importance of utilizing call jeronimo. Bed in lowest position. Personal belongings within
reach.
[2024-05-05] MEDS: SYNTHROID 137 MCG PO (05:20)
[2024-05-05 07:30] VITALS: BP 134/69
[2024-05-05 07:30] LABS: Glucose - Point of Care 95 mg/dl (70-99)
[2024-05-05] MEDS: NOVOLOG FLEXPEN-LOW RESISTANCE SC ×2 (07:37→12:14)
[2024-05-05 07:40] VITALS: BMI 43.0
[2024-05-05] MEDS: HYDROPHOR 1 APPLIC TOPICAL (07:40)
[2024-05-05] MEDS: ELIQUIS 5 MG PO ×2 (07:40→20:40)
[2024-05-05] MEDS: TOPROL XL 25 MG PO ×2 (07:40→20:41)
[2024-05-05] MEDS: DESENEX/MITRAZOL/ZEASORB 1 APPLIC TOPICAL (07:40)
[2024-05-05] MEDS: VITAMIN B-12 1000 MCG PO (07:41)
[2024-05-05] MEDS: MAGNESIUM OXIDE 500 MG PO (07:41)
[2024-05-05] MEDS: TOPROL XL 50 MG PO ×2 (07:42→20:41)
[2024-05-05] MEDS: PACERONE 200 MG PO (07:42)
[2024-05-05] MEDS: OSCAL 500 + D 500 MG PO ×2 (07:42→20:40)
[2024-05-05] MEDS: THERAGRAN 1 TABLET PO (07:42)
[2024-05-05 08:05] LABS: % Basophils 0.3 % (0-2); % Eosinophils 1.4 % (0-6); % Immature Granulocytes 0.3 % (0-0.5); % Lymphocytes 22.5 % (20.5-51.1); % Monocytes 11.2 % (1.7-9.3); % Neutrophils 64.3 % (42.2-75.2); Absolute Eosinophils 0.1 10^3/uL (0-0.7); Absolute Lymphocytes 1.4 10^3/uL (1.2-3.4); Absolute Monocytes 0.7 10^3/uL (0.1-0.6); Absolute Neutrophils 4.1 10^3/uL (1.4-6.5); Hematocrit 41.8 % (37.0-47.0); Hemoglobin 13.4 g/dL (12.0-16.0); Mean Corp Hgb Conc. 32.1 g/dL (33.0-37.0); Mean Corpuscular Hgb 33.8 pg (27.0-31.0); Mean Corpuscular Volume 105.6 fL (81.0-99.0); Mean Platelet Volume 11.8 fL (7.4-10.4); Nucleated Red Blood Cells % 0 %; Platelet Count 137 10^3/uL (130-400); Red Blood Cell Count 3.96 10^6/uL (4.20-5.40); Red Cell Dist. Width 15.9 % (11.5-14.5); White Blood Cell Count 6.4 10^3/uL (4.8-10.8)
[2024-05-05 08:42] LABS: Blood Urea Nitrogen 33 mg/dl (7-17); Carbon Dioxide 30 mmol/L (22-30); Chloride 103 mmol/L (98-107); Estimated Creatinine Clearance 54 ml/min; Glucose 107 mg/dl (70-99); Potassium 4.7 mmol/L (3.5-5.1); Sodium 140 mmol/L (135-145)
--- NOTE | 2024-05-05 09:06 | W.PN.HOSP.TC ---
Addendum entered and electronically signed by Chirag Giron MD 05/05/24 14:05:
Will keep her on only IV cefazolin for now. Psychiatry consulted as well for hallucinations. Discussed with patient and daughter.
Addendum entered and electronically signed by Chirag Giron MD 05/05/24 13:32:
Blood cultures are positive on both bottles gram-positive cocci. Initiate IV antibiotics with cefazolin and vancomycin. ID consult. Cancel discharge for now.
Original Note:
Today's Communication/Plan
-
Discharge planning today
Assessment / Plan
Assessment / Plan
Physical exam:
General: Well Developed, Well Nourished and No Apparent Distress
HEENT: Normocephalic, Atraumatic and Moist Mucous Membranes
Respiratory: Clear to Auscultation; Negative Wheezes, Rales or Rhonchi
Cardiac: Regular Rhythm and S1/S2
GI: Soft, Nontender and Nondistended
Musculoskeletal: No Clubbing, No Cyanosis and No Edema
Neuro: Awake, Alert and Oriented
Psych: Calm
A/P:
# Altered mental status/visual and auditory hallucinations likely secondary to insomnia versus medications related
-Urinalysis unremarkable
-Chest x-ray unremarkable
-CT head shows no acute abnormality
-COVID and flu negative
-Blood cultures pending
-Start melatonin tonight
-Curbside psychiatry today and not much they would offer as inpatient but available if needed (?amiodarone related but can discuss with cardiology outpatient). I also discussed with patient if she would be okay to have psychiatry to see her as
inpatient but she prefers not at this point. We also talked about medications such as amiodarone as a possible cause for hallucinations beyond insomnia but I will have her discussed with cardiology at present and they can switch to another
antiarrhythmics as outpatient.
-I tried to call today but unable to reach daughter
# Right lower extremity wounds
-Do not appear infected
-Wound care
# Renal insufficiency
# Hyperkalemia
-IV fluids given, hold further fluids
-Hold lisinopril and resume as outpatient after follow-up BMP next week
-Creatinine improved and potassium improved
Hypertrophic cardiomyopathy
-EF of 75%
Particular tachycardia status post ICD
Paroxysmal atrial fibrillation
-Continue amiodarone
-Continue Eliquis
-Continue metoprolol
Essential hypertension
-Hold lisinopril
Obesity
Rheumatoid arthritis
Hypothyroidism
-Continue levothyroxine
Full code
DVT prophylaxis�Eliquis
Anticipated Discharge: Today
Subjective/Interval History
-
Date of Service: May 05, 2024
Patient still having some hallucinations but much less. Did have some sleep last night but not as much as expected either.
Objective Data
-
Labs:
Laboratory Results
05/05/24
06:03
WBC 6.4
Hgb 13.4
Hct 41.8
Plt Count 137
Sodium 140
Potassium 4.7
Chloride 103
Carbon Dioxide 30
BUN 33 H
Creatinine 1.1 H
Glucose 107 H
Calcium 9.0
Vital Signs:
Vital Signs
Temp Pulse Resp BP Pulse Ox
97.7 F 65 22 134/69 94
05/05/24 07:30 05/05/24 07:30 05/05/24 07:30 05/05/24 07:30 05/05/24 07:30
I&O
05/04/24 05/05/24 05/06/24
06:59 06:59 06:59
Intake Total 120 / 120
Balance 120 / 120
--- NOTE | 2024-05-05 10:58 | CM ---
CM reviewed chart, patient seen bedside, initial assessment completed. Patient resides with her daughter in a two story home, three steps to enter. Patient has a rollator and rolling walker at home, reports VN in past, unsure agency, SNF in past,
[facility]. Patient confirms PCP Jp Mcc[facility], [facility], confirms prescription coverage. Patient provided with SINGLETON form, refused to sign, aware of observation status. CM discussed PT recommendations of SNF vs VN, would like
to return home with services, agreeable to referral to [facility]. CM will continue to follow for all discharge planning needs.
Plan; home with [facility] pending acceptance
--- NOTE | 2024-05-05 11:49 | VNURNOTE ---
Home Health Liaison spoke with patient's daughter Vilma to discuss [facility] nurse/therapy, visits, schedule and homebound status. She is agreeable and understands that visits at home will be 2-3 x per week to assess and teach medical management. She is
aware that [facility] will contact them for start of care in 1-2 days after discharge from . [facility] referral completed in [facility].
[2024-05-05 12:12] LABS: Glucose - Point of Care 107 mg/dl (70-99)
--- NOTE | 2024-05-05 14:44 | CON.MD ---
Consultation - Medical
-
patient seen chart reviewed. spoke with nursing. tanvi at bedside. the patient is a very pleasant 79 year old who comes to w complaint of confusion. daughter noted that her speech seemed slower and she appeared weaker. the patient has no hx of
dementia but d felt she was less sharp in the past month. it is noted that she has stasis wounds on her lower legs and has been treating with the wound clinic. she has now been found to have bacteremia w blood culture + for gram + cocci. the
patient has complained for the last week of visual hallucinations occasionally. it does not happen on a daily basis and is momentary. she gave two examples. she saw a woman with curly hair out of the corner of her eye . when she turned again she
realized no one was there. another time she thought there was a staff member who told her he needed to get a pulse ox. in the next moment she realized no one was there. the patient is not particularly bothered by these hallucinations. she wondered
if she has PD. a friend has it and had hallucinations as a symptom. the patient does note a tremor at times but it sounds like an intention tremor. i did not note resting tremor and she did not appear to have cogwheeling at the wrists although
there might have been a tiny bit of stiffness initially. i asked if the patient has ever been told she has macular degeneration or other eye malady. she said her vision has been a bit blurrier lately but she had cataract surgery recently and no one
remarked that there were other issues. her mother had macular degeneration. noted patient has taken ambien but the sx preceded the ambien which can cause hallucinations rarely. patient denies depression. she does have hx of 'agoraphobia' and saw a
psychologist years ago but was never prescribed medication
past psych hx anxiety see above
medial hx leg ulcers htn obesity dm angina pud pad hocm hx v tach has an indwelling defibrillator hypothryoid osteoporosis TA Degen disc disease nasal congestion (has had sinus surgery ) she expressed concerns about her hearing and would
like audiometry at some point in the future. noted macrocytosis normal b12 tsh slightly inc with nl t4 bun 33 cr 1.1 a1c 6 qtc 378 patient takes amiodarone which can sometimes cause hallucinations cat scan and cxr without acute findings.
substance abuse none
fh depressio anxiety
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
mse alert ox3 cooperative pleasant in no distress. speech and thought process nl see above re description of hallucinations mood is euthymic affect normal no si aver intell insight judgment ok
dx hallucinations unknown etiology
recommendations i would not treat this with antipsychotics at this time. the hallucinations do not bother patient. they are momentary . she is keenly aware that there is no one there. she has no hx real hx of psych issues except some anxiety so
it is unlikely that a primary psych dx is the cause. i did not see evidence of significant cognitive decline .
the patient may have had a tiny stroke that is not evident on cat scan and might be seen on an mri, but given the defibrillator an mri would not be easy. would defer to neuro on this issue if they are consulted.
would not use ambien. suggest melatonin. by the way hallucinations at the onset and offset of sleep can be normal but these do not exclusively occur at that time. they could also be related to not sleeping. trazodone in very low doses might
also help w sleep.
consider a neuro consult . this could be related to early PD .
one could also opt to wait and see. her symptoms could also be related to bacteremia and will subside when the infection is adequately treated.
lastly she should have an eye exam at some point as her mother had macular degeneration and vero bonnet syndrome related to macular degeneration could be the cause.
psych will look in on her tomorrow
[2024-05-05 15:00] VITALS: BP 147/84
[2024-05-05 16:23] LABS: Glucose - Point of Care 169 mg/dl (70-99)
[2024-05-05] MEDS: ANCEF 10 IV (16:23)
[2024-05-05] MEDS: NOVOLOG FLEXPEN-LOW RESISTANCE 1 UNITS SC (16:24)
--- NOTE | 2024-05-05 17:46 | CON.ID ---
Consultation
-
Date/Time Consultation Requested: 05/05/2024 1333
Date/Time Consultation Performed: 05/05/2024 1740
Requesting Provider: Dr. Giron
Performing Provider: Dr. Tran
Reason for Consultation: Bacteremia
Chief Complaint / Past History
History of Present Illness
Pilar Rojo is an 79-year-old female being evaluated at the request of Dr. Giron regarding bacteremia. History is obtained from chart review and patient interview, although patient was able to provide little in the way of history.
The patient presented to [facility] ER on 05/03 for evaluation of confusion. She reportedly had visual hallucinations, and was found talking to people that were not present. Additionally her speech was noted to be slower than usual. Family
reports that these changes have progressed over the past 2 weeks. Patient recently had been in to see the family doctor who thought she may have had dementia. She was not found to have a leukocytosis at initial presentation, and has been afebrile.
Blood cultures obtained in the emergency room have now been found to be positive for gram-positive cocci in 1 bottle out of each of 2 sets. Infectious Diseases is asked to comment upon further antibiotic management.
Prior to admission, the patient denies any fevers or chills. She denies any pain. She denies any recent med changes. She denies any dysuria. She notes ongoing both visual and auditory hallucinations. They happen 1-2 times a day, but only last a
few seconds at a time.
Past History
Additional Past Medical History:
P A-fib
HTN
Obesity
Rheumatoid arthritis
Hypothyroidism
Hypertrophic cardiomyopathy
Additional Past Surgical History:
ICD placement
Cholecystectomy
Hysterectomy
Bilateral knee replacement
Carpal tunnel release surgery
Sinus surgery
Allergy History:
celecoxib Allergy (Verified 05/04/24 17:25)
stomach pains
codeine Allergy (Verified 05/04/24 17:25)
nausea/vomiting
Medications Reviewed: Yes
Current Antibiotics:
Cefazolin 2 g IV every 8 hours
Social History
Tobacco: Former Smoker
Alcohol: None
Drug: None
Employment: Retired
Family History
Family History: Not Pertinent
Review of Systems
Vital Signs
Temp Pulse Resp BP Pulse Ox
98.6 F 62 20 147/84 97
05/05/24 15:00 05/05/24 15:00 05/05/24 15:00 05/05/24 15:00 05/05/24 15:00
Physical Exam
Physical Exam
Constitutional: No Acute Distress, Comfortable, Non-toxic and Obese
Eyes: No Conjunctival Hemorrhage and Sclera Anicteric
Cardiovascular: S1/S2; Negative S3/S4
Pulmonary: Non Labored
Gastrointestinal: Soft, Non Tender and Non Distended
Extremities: Edema and Other (Bilateral Josue wrap's in place.); Negative Splinter Hemorrhage or Janeway Lesions
Neurological: Awake, Alert and Oriented
Psychological: Calm
.
Lab / Diagnostic Study Results
05/05/24 06:03
05/05/24 06:03
Abs Immat Gran (auto) 0.0 10^3/uL (0-0.05) 05/05/24 06:03
Absolute Neuts (auto) 4.1 10^3/uL (1.4-6.5) 05/05/24 06:03
Absolute Lymphs (auto) 1.4 10^3/uL (1.2-3.4) 05/05/24 06:03
Absolute Monos (auto) 0.7 10^3/uL (0.1-0.6) H 05/05/24 06:03
Absolute Basos (auto) 0.0 10^3/uL (0-0.2) 05/05/24 06:03
Immature Gran % 0.3 % (0-0.5) 05/05/24 06:03
Neutrophils % 64.3 % (42.2-75.2) 05/05/24 06:03
Lymphocytes % 22.5 % (20.5-51.1) 05/05/24 06:03
Monocytes % 11.2 % (1.7-9.3) H 05/05/24 06:03
Eosinophils % 1.4 % (0-6) 05/05/24 06:03
Basophils % 0.3 % (0-2) 05/05/24 06:03
Ur Squamous Epith Cells 16-20 /LPF (Few) 05/03/24 22:32
Microbiology Results
Micro:
05/03/24 21:12 Blood Culture - Preliminary
Blood/Venous Positive culture in progress
Gram Stain - Preliminary
05/03/24 21:12 Blood Culture - Preliminary
Blood/Venous Positive culture in progress
Gram Stain - Preliminary
05/04/24 06:03 MRSA Screen - Final
Nose No Methicillin Resistant Staphylococcus aureus isolated.
05/03/24 16:22 Influenza Types A & B (LAVIN) - Final
Nasal Swab Negative for Influenza A & B, NAAT
Negative results must be combined with clinical observations
and patient history.
Nucleic Acid Amplification test (NAAT)performed on the
[employer] platform.
Imaging:
05/03/2024 CT head without contrast: No acute intracranial abnormality noted.
05/18/2023 ECHO: Stage II diastolic dysfunction noted. EF approximately 70 to 75%. Aortic sclerosis without stenosis. Mild tricuspid regurgitation noted. Please see full study for additional detail.
Assessment / Plan
Reported visual and auditory hallucinations.
Positive blood cultures
pA-fib
HTN
Obesity
Rheumatoid arthritis
Hypothyroidism
Hypertrophic cardiomyopathy
Recommendations:
PCR testing on positive blood cultures do not reveal the presence of Staph aureus, and suggest the presence of coag negative staph.
Patient currently clinically stable, and without signs or symptoms of infection at present (remains afebrile, normal white count and without left shift), increasing the likelihood of contamination.
Will discontinue further antibiotics for the present. Should Staph aureus, or staph lugdunensis ultimately be recovered, patient would need to restart antibiotics and further workup for potential source can ensue.
--- NOTE | 2024-05-05 18:06 | CON.NEURO ---
Neuro Assessment/Plan
Assessment
Visual hallucinations due to Parkinson's disease
exam with parkinsonism
somewhat more symptomatic in the setting of bacteremia
Plan
Spoke with patient about my findings
none of this bothers her so no rx
Consultation
Order
Date of Consultation: 05/05/24
Requesting Provider: Chirag Giron
Reason for Consult: visual hallucinations
Subjective/Objective
Subjective Data
Date of Service: May 05, 2024
from psychiatry notes:
patient seen chart reviewed. spoke with nursing. tanvi at bedside. the patient is a very pleasant 79 year old who comes to w complaint of confusion. daughter noted that her speech seemed slower and she appeared weaker. the patient has no hx of
dementia but d felt she was less sharp in the past month. it is noted that she has stasis wounds on her lower legs and has been treating with the wound clinic. she has now been found to have bacteremia w blood culture + for gram + cocci. the
patient has complained for the last week of visual hallucinations occasionally. it does not happen on a daily basis and is momentary. she gave two examples. she saw a woman with curly hair out of the corner of her eye . when she turned again she
realized no one was there. another time she thought there was a staff member who told her he needed to get a pulse ox. in the next moment she realized no one was there. the patient is not particularly bothered by these hallucinations. she wondered
if she has PD.
because of this, neurology consultation was advised
the patient reports several years of worsening handwriting, and shuffling when she walks. she reports one fall 'because of the stupid dog'
Objective Data
Vital Signs
Temp Pulse Resp BP Pulse Ox
37.0 C 62 20 147/84 97
05/05/24 15:00 05/05/24 15:00 05/05/24 15:00 05/05/24 15:00 05/05/24 15:00
Lab Results
05/05/24 06:03
05/05/24 06:03
Sodium 140 mmol/L (135-145) 05/05/24 06:03
Potassium 4.7 mmol/L (3.5-5.1) 05/05/24 06:03
BUN 33 mg/dl (7-17) H 05/05/24 06:03
Glucose 107 mg/dl (70-99) H 05/05/24 06:03
Calcium 9.0 mg/dl (8.4-10.2) 05/05/24 06:03
Vitamin B12 913 pg/ml (239-931) 05/03/24 16:23
Patient Allergies
celecoxib Allergy (Verified 05/04/24 17:25)
stomach pains
codeine Allergy (Verified 05/04/24 17:25)
nausea/vomiting
Physical Exam
-
AAOx3, speech soft, clear
masked fascies
marked bradykinesia
minimal cogwheel rigidity with contralateral activation
Medications
-
Active Medications
Generic Name Dose Route Start Last Admin
Trade Name Freq PRN Reason Stop Dose Admin
Amiodarone HCl 200 mg 05/04/24 08:00 05/05/24 07:42
Amiodarone 200 Mg Tablet PO 06/01/24 07:59 200 mg
DAILY CHAO Administration
Apixaban 5 mg 05/04/24 08:00 05/05/24 07:40
Apixaban (Eliquis) 5 Mg Tablet PO 06/01/24 07:59 5 mg
BID CHAO Administration
Calcium/Vitamin D 500 mg 05/04/24 08:00 05/05/24 07:42
Calcium Carbonate 500 Mg/Vitamin D 5 Mcg (200 Units) Tablet PO 06/01/24 07:59 500 mg
BID CHAO Administration
Cyanocobalamin 1,000 mcg 05/04/24 08:00 05/05/24 07:41
Cyanocobalamin 1,000 Mcg Tablet PO 06/01/24 07:59 1,000 mcg
DAILY CHAO Administration
Dextrose 12.5 grams 05/04/24 09:27
Dextrose 50% (0.5 Grams/Ml) 50 Ml Syringe IV 06/01/24 09:26
[id number] PRN
hypoglycemia
Protocol
Emollient Ointment 0 applic 05/05/24 08:00 05/05/24 07:40
Petrolatum/Mineral Oil (Hydrophor) Oint 100 Gram TOPICAL 06/02/24 07:59 1 applic
DAILY CHAO Administration
Glucagon 1 mg 05/04/24 09:27
Glucagon 1 Mg Vial IM 06/01/24 09:26
PRN PRN
hypoglycemia
Protocol
Cefazolin Sodium 2 grams in 10 mls @ 120 mls/hr 05/05/24 14:00 05/05/24 16:23
Ancef IV 10 mls
Q8H CHAO Administration
Insulin Aspart 0 units 05/04/24 11:30 05/05/24 16:24
Insulin Aspart Low Resistance 300 Units/3 Ml Pen.Injctr SC 06/01/24 11:29 1 units
AC CHAO Administration
Protocol
Levothyroxine Sodium 137 mcg 05/04/24 06:00 05/05/24 05:20
Levothyroxine 137 Mcg Tablet PO 06/01/24 05:59 137 mcg
DAILY @ 0600 CHAO Administration
Magnesium Oxide 500 mg 05/04/24 08:00 05/05/24 07:41
Magnesium Oxide 500 Mg Tablet PO 06/01/24 07:59 500 mg
DAILY CHAO Administration
Melatonin 5 mg 05/05/24 22:00
Melatonin 5 Mg Tablet PO 06/02/24 21:59
HS CHAO
Metoprolol Succinate 50 mg 05/04/24 08:00 05/05/24 07:42
Metoprolol 50 Mg Extended Release Tablet PO 06/01/24 07:59 50 mg
BID CHAO Administration
Metoprolol Succinate 25 mg 05/04/24 08:00 05/05/24 07:40
Metoprolol 25 Mg Extended Release Tablet PO 06/01/24 07:59 25 mg
BID CHAO Administration
Miconazole Nitrate 0 applic 05/04/24 20:00 05/05/24 07:40
Miconazole Powder Bottle TOPICAL 06/01/24 19:59 1 applic
BID CHAO Administration
Multivitamins Therapeutic 1 tablet 05/04/24 08:00 05/05/24 07:42
Multivitamin Tablet PO 06/01/24 07:59 1 tablet
DAILY CHAO Administration
Sodium Chloride 0 flush 05/03/24 23:00
Sodium Chloride 0.9% (Flush) Syringe IV 05/31/24 22:59
PER PROTOCOL CHAO
Home Medications
�Medication �Instructions �Recorded
calcium 250 mg (as phosphate)-vit 1 ea PO BID Supplement 02/19/17
D3 10 mcg (400 unit) chewable
tablet (Caltrate Gummy Bites)
apixaban 5 mg tablet (Eliquis) 5 mg PO BID #60 tabs 05/18/17
cyanocobalamin (vitamin B-12) 1,000 mcg PO DAILY Supplement 02/19/18
1,000 mcg tablet
magnesium oxide 500 mg PO DAILY ##30 02/21/18
amiodarone 200 mg tablet (Pacerone) 200 mg PO DAILY Arrhythmia 12/23/18
levothyroxine 137 mcg tablet 137 mcg PO DAILY Thyroid 05/03/24
(Levoxyl)
lisinopril 20 mg tablet 20 mg PO DAILY Blood Pressure 05/03/24
metoprolol succinate 25 mg 25 mg PO BID Blood Pressure 05/03/24
tablet,extended release 24 hr
metoprolol succinate 50 mg 50 mg PO BID Blood Pressure 05/03/24
tablet,extended release 24 hr
therapeutic multivitamin 1 tab PO DAILY Supplement 05/03/24
melatonin 5 mg capsule 5 mg PO DAILY #30 caps 05/05/24
[2024-05-05] MEDS: MELATONIN 5 MG PO (20:45)
[2024-05-05] MEDS: DESENEX/MITRAZOL/ZEASORB TOPICAL (20:49)
[2024-05-05 21:16] LABS: Glucose - Point of Care 99 mg/dl (70-99)
[2024-05-05 23:10] VITALS: BP 135/73
[2024-05-06] MEDS: SYNTHROID 137 MCG PO (04:46)
[2024-05-06 07:00] VITALS: BP 125/66
[2024-05-06 07:15] LABS: Glucose - Point of Care 101 mg/dl (70-99)
[2024-05-06 08:40] LABS: Vitamin D, 25-OH*** 47.5 ng/mL (30-80)
[2024-05-06] MEDS: NOVOLOG FLEXPEN-LOW RESISTANCE SC ×3 (09:11→17:21)
[2024-05-06] MEDS: DESENEX/MITRAZOL/ZEASORB TOPICAL (09:12)
[2024-05-06] MEDS: VITAMIN B-12 1000 MCG PO (09:13)
[2024-05-06] MEDS: TOPROL XL 50 MG PO ×2 (09:13→20:28)
[2024-05-06] MEDS: THERAGRAN 1 TABLET PO (09:13)
[2024-05-06] MEDS: OSCAL 500 + D 500 MG PO ×2 (09:13→20:28)
[2024-05-06] MEDS: MAGNESIUM OXIDE 500 MG PO (09:13)
[2024-05-06] MEDS: TOPROL XL 25 MG PO ×2 (09:14→20:28)
[2024-05-06] MEDS: ELIQUIS 5 MG PO ×2 (09:14→20:28)
[2024-05-06] MEDS: PACERONE 200 MG PO (09:14)
--- NOTE | 2024-05-06 09:28 | W.PN.HOSP.TC ---
Today's Communication/Plan
-
Follow-up cultures.
Assessment / Plan
Assessment / Plan
Physical exam:
General: Well Developed, Well Nourished and No Apparent Distress
HEENT: Normocephalic, Atraumatic and Moist Mucous Membranes
Respiratory: Clear to Auscultation; Negative Wheezes, Rales or Rhonchi
Cardiac: Regular Rhythm and S1/S2
GI: Soft, Nontender and Nondistended
Musculoskeletal: No Clubbing, No Cyanosis and No Edema. Wounds the same
Neuro: Awake, Alert and Oriented
Psych: Calm
A/P:
Hallucinations:
Unclear etiology
Appreciated neurology and psychiatry consults-discussed with both of them.
One thing we all agree there is no need for antipsychotics or any other medications
PT OT
Positive blood cultures:
Contaminant (CONS) versus ?real pathogen
Off antibiotics
Appreciated ID consult (I started antibiotics but ID discontinued and seems reasonable)
Follow-up blood cultures
Probable Parkinson's disease:
Follow-up with neurology as outpatient
No need for further treatment at the moment
Toxic metabolic encephalopathy:
Resolved
Back to her baseline
Right lower extremity wounds:
Continue wound care
Does not appear infected
Hyperkalemia:
Resolved
Continue hold YONATHAN inhibitor and restart as outpatient if potassium remains normal
Renal insufficiency:
Continue to monitor renal function
Paroxysmal A-fib:
Rate control, metoprolol succinate 75 mg p.o. twice a day
Antiarrhythmics, amiodarone 200 years p.o. daily
Anticoagulation, Eliquis 5 mg twice a day
Hypertension:
Continue antihypertensives
Hypothyroidism:
Continue thyroid replacement
Rheumatoid arthritis:
Follow-up with rheumatology as outpatient
Hypertrophic cardiomyopathy:
Appears euvolemic
History of ICD
Obesity:
Lifestyle changes modification
DVT prophylaxis:
On Eliquis
CODE STATUS:
Full code
Total time spent on today's encounter was 52 minutes which included time spent in counseling the patient/family regarding diagnosis and treatment plan as listed above, goals of care, and symptom management. Case was discussed with nursing staff,
specialists, and care coordinators/case management. All labs and imaging personally reviewed by me. Remainder the time spent in detailed review of previous records, lab data, imaging, and other medical provider documentation.
Anticipated Discharge: 24 - 48 hours
Subjective/Interval History
-
Date of Service: May 06, 2024
Patient feels well today. Hallucination persists but not bothering her. Afebrile
Objective Data
-
Vital Signs:
Vital Signs
Temp Pulse Resp BP Pulse Ox
96.4 F L 62 18 125/66 94
05/06/24 07:00 05/06/24 07:00 05/06/24 07:00 05/06/24 07:00 05/06/24 07:00
I&O
05/05/24 05/06/24 05/07/24
06:59 06:59 06:59
Intake Total 120 / 120 960 / 960
Balance 120 / 120 960 / 960
[2024-05-06 09:29] LABS: Folate 16.4 ng/ml (2.76-20)
[2024-05-06 09:55] LABS: % Basophils 0.3 % (0-2); % Eosinophils 1.2 % (0-6); % Immature Granulocytes 0.3 % (0-0.5); % Lymphocytes 19.8 % (20.5-51.1); % Monocytes 8.4 % (1.7-9.3); Absolute Eosinophils 0.1 10^3/uL (0-0.7); Absolute Lymphocytes 1.4 10^3/uL (1.2-3.4); Absolute Monocytes 0.6 10^3/uL (0.1-0.6); Absolute Neutrophils 4.8 10^3/uL (1.4-6.5); Hematocrit 41.4 % (37.0-47.0); Hemoglobin 13.4 g/dL (12.0-16.0); Mean Corp Hgb Conc. 32.4 g/dL (33.0-37.0); Mean Corpuscular Volume 105.1 fL (81.0-99.0); Mean Platelet Volume 12.3 fL (7.4-10.4); Nucleated Red Blood Cells % 0 %; Platelet Count 127 10^3/uL (130-400); Red Blood Cell Count 3.94 10^6/uL (4.20-5.40); Red Cell Dist. Width 15.7 % (11.5-14.5); White Blood Cell Count 6.9 10^3/uL (4.8-10.8)
[2024-05-06] MEDS: HYDROPHOR 1 APPLIC TOPICAL (09:56)
--- NOTE | 2024-05-06 10:19 | CM ---
Plan is for patient to return to home when stable, with [facility], referral sent to [facility]
Plan; Patient prefers home with [facility] depending on progress with PT/OT.
[2024-05-06 11:02] LABS: Blood Urea Nitrogen 35 mg/dl (7-17); Calcium 9.2 mg/dl (8.4-10.2); Carbon Dioxide 27 mmol/L (22-30); Chloride 103 mmol/L (98-107); Estimated Creatinine Clearance 50 ml/min; Glucose 109 mg/dl (70-99); Potassium 4.7 mmol/L (3.5-5.1); Sodium 139 mmol/L (135-145); eGFR 45.76
[2024-05-06 11:35] LABS: Glucose - Point of Care 149 mg/dl (70-99)
--- NOTE | 2024-05-06 11:48 | W.PN.UPDATE ---
Update Note
Progress Note Update
Patient is doing well, denies hallucinations within the last 24 hours. She is in good mood, not depressed, appetite fair, denies insomnia.
No cognitive deficits were found.
For now I do not feel that antipsychotic medications are indicated as potential side effects would outweigh potential benefits.
[2024-05-06 15:00] VITALS: BP 123/60
[2024-05-06 17:11] LABS: Glucose - Point of Care 94 mg/dl (70-99)
[2024-05-06] MEDS: DESENEX/MITRAZOL/ZEASORB 1 APPLIC TOPICAL (20:29)
[2024-05-06 21:41] LABS: Glucose - Point of Care 139 mg/dl (70-99)
[2024-05-06] MEDS: MELATONIN 5 MG PO (21:59)
--- NOTE | 2024-05-06 22:25 | PTCARENOTE ---
Unable to obtain an oral and axillary temperature. Rectal temperature refused by patient. Patient does not feel cold on palpation, all other vital signs are WNL. Coloring is WNL, with no evidence of pallor. Provider, Zoe Wakefield, notified. Warm
blankets applied. Will reassess.
[2024-05-06 23:09] VITALS: BP 107/67
--- NOTE | 2024-05-06 23:35 | PTCARENOTE ---
patient oral temperature is now 98.1. provider notified
[2024-05-07] MEDS: SYNTHROID 137 MCG PO (04:38)
[2024-05-07 05:51] VITALS: BMI 41.9
[2024-05-07 07:30] LABS: Glucose - Point of Care 93 mg/dl (70-99)
[2024-05-07 07:33] VITALS: BP 110/58
[2024-05-07 07:56] LABS: Blood Urea Nitrogen 33 mg/dl (7-17); Calcium 9.3 mg/dl (8.4-10.2); Carbon Dioxide 32 mmol/L (22-30); Chloride 101 mmol/L (98-107); Estimated Creatinine Clearance 49 ml/min; Glucose 97 mg/dl (70-99); Potassium 4.8 mmol/L (3.5-5.1); Sodium 138 mmol/L (135-145); eGFR 45.76
[2024-05-07 08:14] LABS: % Basophils 0.5 % (0-2); % Eosinophils 1.8 % (0-6); % Immature Granulocytes 0.5 % (0-0.5); % Lymphocytes 24.1 % (20.5-51.1); % Monocytes 10.3 % (1.7-9.3); % Neutrophils 62.8 % (42.2-75.2); Absolute Eosinophils 0.1 10^3/uL (0-0.7); Absolute Lymphocytes 1.3 10^3/uL (1.2-3.4); Absolute Monocytes 0.6 10^3/uL (0.1-0.6); Absolute Neutrophils 3.5 10^3/uL (1.4-6.5); Hematocrit 42.4 % (37.0-47.0); Hemoglobin 13.6 g/dL (12.0-16.0); Mean Corp Hgb Conc. 32.1 g/dL (33.0-37.0); Mean Corpuscular Hgb 33.7 pg (27.0-31.0); Mean Platelet Volume 11.4 fL (7.4-10.4); Nucleated Red Blood Cells % 0 %; Platelet Count 132 10^3/uL (130-400); Red Blood Cell Count 4.04 10^6/uL (4.20-5.40); Red Cell Dist. Width 15.6 % (11.5-14.5); White Blood Cell Count 5.5 10^3/uL (4.8-10.8)
[2024-05-07] MEDS: NOVOLOG FLEXPEN-LOW RESISTANCE SC ×2 (08:23→11:01)
[2024-05-07] MEDS: MAGNESIUM OXIDE 500 MG PO (08:24)
[2024-05-07] MEDS: TOPROL XL 25 MG PO (08:24)
[2024-05-07] MEDS: THERAGRAN 1 TABLET PO (08:24)
[2024-05-07] MEDS: DESENEX/MITRAZOL/ZEASORB 1 APPLIC TOPICAL (08:24)
[2024-05-07] MEDS: OSCAL 500 + D 500 MG PO (08:24)
[2024-05-07] MEDS: ELIQUIS 5 MG PO (08:25)
[2024-05-07] MEDS: VITAMIN B-12 1000 MCG PO (08:25)
[2024-05-07] MEDS: TOPROL XL 50 MG PO (08:25)
[2024-05-07] MEDS: PACERONE 200 MG PO (08:25)
[2024-05-07] MEDS: HYDROPHOR 1 APPLIC TOPICAL (08:25)
--- NOTE | 2024-05-07 09:19 | W.PN.HOSP.TC ---
Today's Communication/Plan
-
Discharge planning today
Assessment / Plan
Assessment / Plan
Physical exam:
General: Well Developed, Well Nourished and No Apparent Distress
HEENT: Normocephalic, Atraumatic and Moist Mucous Membranes
Respiratory: Clear to Auscultation; Negative Wheezes, Rales or Rhonchi
Cardiac: Regular Rhythm and S1/S2
GI: Soft, Nontender and Nondistended
Musculoskeletal: No Clubbing, No Cyanosis and No Edema. Wounds the same
Neuro: Awake, Alert and Oriented
Psych: Calm
A/P:
Hallucinations:
Unclear etiology
Appreciated neurology and psychiatry consults-discussed with both of them.
One thing we all agree there is no need for antipsychotics or any other medications
PT OT
Positive blood cultures:
Contaminant (CONS)
Off antibiotics
Appreciated ID consult (I started antibiotics but ID discontinued and seems reasonable)
Probable Parkinson's disease:
Follow-up with neurology as outpatient
No need for further treatment at the moment
Toxic metabolic encephalopathy:
Resolved
Back to her baseline
Right lower extremity wounds:
Continue wound care
Does not appear infected
Hyperkalemia:
Resolved
Continue hold YONATHAN inhibitor and restart as outpatient if potassium remains normal
Renal insufficiency:
Continue to monitor renal function
Paroxysmal A-fib:
Rate control, metoprolol succinate 75 mg p.o. twice a day
Antiarrhythmics, amiodarone 200 years p.o. daily
Anticoagulation, Eliquis 5 mg twice a day
Hypertension:
Continue antihypertensives
Hypothyroidism:
Continue thyroid replacement
Rheumatoid arthritis:
Follow-up with rheumatology as outpatient
Hypertrophic cardiomyopathy:
Appears euvolemic
History of ICD
Obesity:
Lifestyle changes modification
DVT prophylaxis:
On Eliquis
CODE STATUS:
Full code
Anticipated Discharge: Today
Subjective/Interval History
-
Date of Service: May 07, 2024
Feels well. No fever
Objective Data
-
Labs:
Laboratory Results
05/07/24
05:41
WBC 5.5
Hgb 13.6
Hct 42.4
Plt Count 132
Sodium 138
Potassium 4.8
Chloride 101
Carbon Dioxide 32 H
BUN 33 H
Creatinine 1.2 H
Glucose 97
Calcium 9.3
Vital Signs:
Vital Signs
Temp Pulse Resp BP Pulse Ox
98.6 F 61 20 110/58 95
05/07/24 07:33 05/07/24 07:33 05/07/24 07:33 05/07/24 07:33 05/07/24 07:33
I&O
05/06/24 05/07/24 05/08/24
06:59 06:59 06:59
Intake Total 960 / 960 480 / 480
Balance 960 / 960 480 / 480
[2024-05-07 10:54] LABS: Glucose - Point of Care 143 mg/dl (70-99)
--- NOTE | 2024-05-07 12:01 | W.DCSUMMARY ---
Discharge Summary
Discharge Data
Date of Admission: 05/05/24
Date of Discharge: 05/07/24
-
Pending Results: No
Hospital Course
Patient 79 years old female with history of hypertension, obesity, rheumatoid arthritis, hypothyroidism, hypertrophic cardiomyopathy, A-fib came into the hospital with hallucinations. Patient was seen by psychiatry and felt there was no need for
antipsychotics and hallucinations will improve over time. She also was seen by neurology who feels she has some Parkinson's disease as well but no need for treatment at the moment but recommended continue outpatient follow-up. Patient also had
some blood cultures were positive and ID consulted but it turned out to be contaminant and antibiotics were discontinued. She had some wound in her legs and will continue wound care as outpatient but they did not seem infected. She remained
afebrile. She has remained hemodynamically stable. PT OT recommended home health. She feels back to her baseline. She will be discharged in stable condition today.
Discharge duration: 35 minutes
Discharge Plan
-
Patient Disposition: Home (Routine Discharge)
Discharge Diagnosis/Procedures: Hallucinations. Insomnia. Right lower extremity wounds. Paroxysmal atrial fibrillation.
Condition: Good
Diet: Low Cholesterol
Activity: As tolerated
Blood Work: Please PCP to order CBC, BMP within 1 week
Activity Restrictions/Additional Instructions:
Wound Care Instructions
RLE-clean with saline or Vashe wound cleanser, Aquaphor to dry skin le's, adaptic, ABD pad, secure with Kerlix, change daily and prn drainage (add alginate after adaptic prn large amount of drainage).
Miconazole powder to abdominal/groin/breast folds, sacral/coccyx crease, affected areas bid.
Bilateral knee high Josue wraps as tolerated; may remove q hs; re-wrap every morning.
Follow up at wound care center call for an appointment.
Referrals:
Sincere Pena MD [Active] - in two to four weeks
Jp Mccabe MD [Family Provider] - in less than 1 week
Prescriptions:
New
melatonin 5 mg capsule
5 mg PO DAILY Qty: 30 0RF
Continued
calcium phosphate-vitamin D3 [Caltrate Gummy Bites] 1 EACH tablet,chewable
1 ea PO BID
Eliquis 5 MG tablet
5 mg PO BID Qty: 60 11RF
cyanocobalamin (vitamin B-12) 1,000 MCG tablet
1,000 mcg PO DAILY
magnesium oxide 500 MG tablet
500 mg PO DAILY Qty: 30 3RF
amiodarone [Pacerone] 200 MG tablet
200 mg PO DAILY
levothyroxine [Levoxyl] 137 mcg Tablet
137 mcg PO DAILY
therapeutic multivitamin Tablet
1 tab PO DAILY
metoprolol succinate 25 mg Tablet Extended Release 24 Hr
25 mg PO BID
Rx Instructions:
take with 50mg for total of 75mg
metoprolol succinate 50 MG tablet extended release 24 hr
50 mg PO BID
Rx Instructions:
take with 25mg for total of 75mg
Held
lisinopril 20 mg Tablet
20 mg PO DAILY
Hold Instructions: Resume on 05/09/24.
Discharge Orders:
Discharge Patient (As Directed); Ordered 05/07/24
Ordered By: Chirag Giron
Discharge Date and Time
Discharge Date/Time: 05/07/24 14:18
Print Language: PERSIAN
[2024-05-07 13:06] VITALS: BP 134/78
--- NOTE | 2024-05-07 13:12 | CM ---
Home today with [facility].
Plan; Home with [facility]
== END 2024-05-07 14:18 | disposition home health service (06) | DRG 92 ==
LOC: 4 WEST ACU 13:30
PROVIDERS: Physician Assistant; ADMITTING PHYSICIAN Hospitalist; ATTENDING PHYSICIAN Hospitalist; CONSULT PHYSICIAN Psychiatry & Neurology Clinical Neurophysiology; CONSULT PHYSICIAN Psychiatry & Neurology Psychiatry; EMERGENCY PHYSICIAN Emergency Medicine; FAMILY PHYSICIAN Internal Medicine; OTHER PHYSICIAN Internal Medicine Infectious Disease
DX: G92.8 Other toxic encephalopathy (principal); I42.2 Other hypertrophic cardiomyopathy; R44.3 Hallucinations, unspecified; Z68.41 Body mass index [BMI] 40.0-44.9, adult; I47.20 Ventricular tachycardia, unspecified; L97.919 Non-pressure chronic ulcer of unspecified part of right lower leg with unspecified severity; G20.A1 Parkinson's disease without dyskinesia, without mention of fluctuations; I48.0 Paroxysmal atrial fibrillation; I10 Essential (primary) hypertension; E03.9 Hypothyroidism, unspecified; M06.9 Rheumatoid arthritis, unspecified; E66.9 Obesity, unspecified; Z11.52 Encounter for screening for COVID-19; G47.00 Insomnia, unspecified; Z87.891 Personal history of nicotine dependence; Z95.810 Presence of automatic (implantable) cardiac defibrillator; Z79.01 Long term (current) use of anticoagulants; Z79.890 Hormone replacement therapy; Z79.899 Other long term (current) drug therapy; Z90.710 Acquired absence of both cervix and uterus; Z96.653 Presence of artificial knee joint, bilateral; Z86.0100 Personal history of colon polyps, unspecified; E78.00 Pure hypercholesterolemia, unspecified; I87.8 Other specified disorders of veins; Z88.5 Allergy status to narcotic agent
CPT/HCPCS: 51701; 70450; 71046; 80048; 80053; 81003; 81015; 82306; 82607; 82746; 82962; 83036; 83735; 84439; 84443; 85025; 87040; 87070; 87147; 87150; 87186; 87205; 87502; 87811; 97163; 97166; 99285

== ENCOUNTER → 2024-05-08 12:34 | Outpatient (REF) | payer MEDICARE, SELFPAY | LOC: WOUND 12:34 | PROVIDERS: ATTENDING PHYSICIAN Surgery; FAMILY PHYSICIAN Internal Medicine | DX: I87.311 Chronic venous hypertension (idiopathic) with ulcer of right lower extremity (principal); L97.211 Non-pressure chronic ulcer of right calf limited to breakdown of skin; L97.311 Non-pressure chronic ulcer of right ankle limited to breakdown of skin; E11.9 Type 2 diabetes mellitus without complications; I87.2 Venous insufficiency (chronic) (peripheral); I10 Essential (primary) hypertension; Z87.891 Personal history of nicotine dependence | CPT/HCPCS: 29580; 99213 ==

== ENCOUNTER → 2024-05-15 11:21 | Outpatient (REF) | payer MEDICARE, SELFPAY | LOC: WOUND 11:21 | PROVIDERS: ATTENDING PHYSICIAN Surgery; FAMILY PHYSICIAN Internal Medicine | DX: I87.311 Chronic venous hypertension (idiopathic) with ulcer of right lower extremity (principal); L97.211 Non-pressure chronic ulcer of right calf limited to breakdown of skin; L97.311 Non-pressure chronic ulcer of right ankle limited to breakdown of skin; Z86.39 Personal history of other endocrine, nutritional and metabolic disease; Z87.891 Personal history of nicotine dependence; E11.9 Type 2 diabetes mellitus without complications; I87.2 Venous insufficiency (chronic) (peripheral); I10 Essential (primary) hypertension | CPT/HCPCS: 29580; 99213 ==

== ENCOUNTER → 2024-05-18 13:55 | Outpatient (REF) | payer MEDICARE, SELFPAY | LOC: WOUND 13:55 | PROVIDERS: ATTENDING PHYSICIAN Surgery; FAMILY PHYSICIAN Internal Medicine | DX: I87.311 Chronic venous hypertension (idiopathic) with ulcer of right lower extremity (principal); L97.211 Non-pressure chronic ulcer of right calf limited to breakdown of skin; L97.311 Non-pressure chronic ulcer of right ankle limited to breakdown of skin; E11.9 Type 2 diabetes mellitus without complications; I87.2 Venous insufficiency (chronic) (peripheral); I10 Essential (primary) hypertension; Z86.39 Personal history of other endocrine, nutritional and metabolic disease; Z87.891 Personal history of nicotine dependence | CPT/HCPCS: 29580; 99212 ==

== ENCOUNTER → 2024-05-22 11:11 | Outpatient (REF) | payer MEDICARE, SELFPAY | LOC: WOUND 11:11 | PROVIDERS: ATTENDING PHYSICIAN Surgery; FAMILY PHYSICIAN Internal Medicine | DX: I87.311 Chronic venous hypertension (idiopathic) with ulcer of right lower extremity (principal); L97.211 Non-pressure chronic ulcer of right calf limited to breakdown of skin; L97.311 Non-pressure chronic ulcer of right ankle limited to breakdown of skin; E11.9 Type 2 diabetes mellitus without complications; I87.2 Venous insufficiency (chronic) (peripheral); I10 Essential (primary) hypertension; Z86.39 Personal history of other endocrine, nutritional and metabolic disease; Z87.891 Personal history of nicotine dependence | CPT/HCPCS: 99212 ==

== ENCOUNTER → 2024-06-06 08:49 | Outpatient (REF) | payer MEDICARE, SELFPAY | LOC: WOUND 08:49 | PROVIDERS: ATTENDING PHYSICIAN Surgery; FAMILY PHYSICIAN Internal Medicine | DX: I87.311 Chronic venous hypertension (idiopathic) with ulcer of right lower extremity (principal); L97.211 Non-pressure chronic ulcer of right calf limited to breakdown of skin; E11.9 Type 2 diabetes mellitus without complications; I87.2 Venous insufficiency (chronic) (peripheral); I10 Essential (primary) hypertension; Z87.891 Personal history of nicotine dependence; Z86.39 Personal history of other endocrine, nutritional and metabolic disease | CPT/HCPCS: 29581; 99213 ==

== ENCOUNTER → 2024-06-13 10:25 | Outpatient (REF) | payer MEDICARE, SELFPAY | LOC: WOUND 10:25 | PROVIDERS: ATTENDING PHYSICIAN Surgery; FAMILY PHYSICIAN Internal Medicine | DX: I87.311 Chronic venous hypertension (idiopathic) with ulcer of right lower extremity (principal); L97.211 Non-pressure chronic ulcer of right calf limited to breakdown of skin; E11.9 Type 2 diabetes mellitus without complications; I87.2 Venous insufficiency (chronic) (peripheral); I10 Essential (primary) hypertension; Z86.39 Personal history of other endocrine, nutritional and metabolic disease; Z87.891 Personal history of nicotine dependence | CPT/HCPCS: 97597 ==

== ENCOUNTER 2024-06-16 21:19 | Emergency (ER) | payer MEDICARE, SELFPAY ==
[2024-06-16 21:22] VITALS: BP 164/105
--- NOTE | 2024-06-16 22:24 | ED.SKININJ ---
HPI-Injury
General
Chief Complaint: Skin Surface Trauma
Source: patient
Exam Limitations: none
Time Seen by Provider: 06/16/24 22:11
Nursing documentation reviewed up to this point in time: agreed with
History of Present Illness-Injury
Initial Injury comments:
79 yo female w h/o a fib on Eliquis HTN, pacemaker, cut her left ring finger on tuna fish can 2 hours ago at home. Unsure of last dT.
Past History
Past History
ED Past Medical History: Arrthythmia (V. tach), HTN, Hypercholesterolemia, Hypothyroidism and Other (RA, colon Polyps)
ED Past Surgical History: Cholecystectomy, Gynecological (Hysterectomy), Orthopedic (bilateral knee replacements) and Other (noncontributory )
Social History
Tobacco: Former smoker (quit 20 years ago)
Alcohol: None
Drug: None
Personal:
Living: with family
Employment: Retired
Family History
Family History: Other (n/c)
Review of Systems
Review of Systems
Allergies reviewed?: Yes
All Other Systems: ROS reviewed and negative except as documented in HPI and ROS
Skin: Reports other (cut left ring finger)
Phy Exam
Physical Exam
Physical Exam:
GENERAL: No acute distress. A&Ox3.
CONSTITUTIONAL: Afebrile.
RESPIRATORY: Regular respirations, nonlabored, lungs clear.
CARDIOVASCULAR: Regular rate and rhythm, no murmurs, no rubs.
MUSCULOSKELETAL: Moves with ease. Well perfused.
SKIN: Warm, dry, pink. 5 mm skin avulsion tip of left ring finger. Very slow venous oozing. Area cleansed with normal saline, Gelfoam, nonstick and 2 gauze dressing applied with good hemostasis
PSYCH: Normal mood and affect. Well kept, interactive and appropriate
NEUROLOGIC: Awake, alert and oriented. No focal neurological deficits
Course
Orders/Labs/Results
Orders:
Orders
06/16/24 22:24
Tetanus/Diphth/Acelpertussis [Adacel] 0.5 ml IM .ONCE ONE
Vital Signs
Initial and Last Documented VS:
Initial Vital Signs
Temp Pulse Resp BP Pulse Ox
98.1 F 80 16 164/105 98
06/16/24 21:22 06/16/24 21:22 06/16/24 21:22 06/16/24 21:22 06/16/24 21:22
Last Documented Vital Signs
Temp Pulse Resp BP Pulse Ox
98.1 F 80 16 126/67 98
06/16/24 21:22 06/16/24 21:22 06/16/24 21:22 06/16/24 22:29 06/16/24 21:22
MDM/Problems Addressed
MDM/Problems Addressed:
79 yo female w h/o a fib on Eliquis HTN, pacemaker, cut her left ring finger on tuna fish can 2 hours ago at home. Unsure of last tetanus immunization
Tdap updated
Wound cleansed with NSS, Gelfoam, nonstick and tubegauze dressing applied.
Bleeding controlled with dressing
Chronic conditions affecting care: Arrhythmia (A-fib on Eliquis)
*Critical Care Note
Total Time (30-74mins, 75-104mins- exclusive of procedures): Not Applicable
ED Attending Note
-
Portions of this chart may have been created with voice recognition software.� Occasional wrong word or��sound alike� substitutions may have occurred due to the inherent limitations of voice recognition software.
Discharge Plan
Departure
Patient Disposition: Home (Routine Discharge)
Date of Disposition: 06/16/24
Time of Disposition: 22:38
Patient with high blood pressure during this ER visit?: No
Condition: Good
Discharge Problem:
Avulsion of skin of finger
Instructions: Wound care - ED discharge instructions
Prescriptions:
No Action
calcium phosphate-vitamin D3 [Caltrate Gummy Bites] 1 EACH tablet,chewable
1 ea PO BID
Eliquis 5 MG tablet
5 mg PO BID Qty: 60 11RF
cyanocobalamin (vitamin B-12) 1,000 MCG tablet
1,000 mcg PO DAILY
magnesium oxide 500 MG tablet
500 mg PO DAILY Qty: 30 3RF
amiodarone [Pacerone] 200 MG tablet
200 mg PO DAILY
levothyroxine [Levoxyl] 137 mcg Tablet
137 mcg PO DAILY
lisinopril 20 mg Tablet
20 mg PO DAILY
therapeutic multivitamin Tablet
1 tab PO DAILY
metoprolol succinate 25 mg Tablet Extended Release 24 Hr
25 mg PO BID
Rx Instructions:
take with 50mg for total of 75mg
metoprolol succinate 50 MG tablet extended release 24 hr
50 mg PO BID
Rx Instructions:
take with 25mg for total of 75mg
melatonin 5 mg capsule
5 mg PO DAILY Qty: 30 0RF
Referrals:
Jp Mccabe MD [Family Provider] - As needed
Activity Restrictions/Additional Instructions:
As we discussed, remove the dressing on Wednesday. You may have to gently soak off the Gelfoam.
Wash the wound gently in the shower or bath as usual, apply antibiotic ointment and band aids.
Do this daily until well healed
Use the aluminum fingertip splint as needed for protection
Interventions
Interventions:
*Risk Screen - Suicide Last Done: 06/16/24 21:22
*General Assessment Last Done: 06/16/24 21:22
*Neglect/Abuse Screening Last Done: 06/16/24 21:22
*ED- Fall Risk Assessment Last Done: 06/16/24 21:22
*ED COVID-19 Vaccine History Last Done: 06/16/24 21:22
*Nursing Disposition Last Done: 06/16/24 22:57
ED-Skin Assessment Last Done: 06/16/24 22:56
Discharge Date and Time
Discharge Date/Time: 06/16/24 22:58
Print Language: NORWEGIAN
[2024-06-16 22:29] VITALS: BP 126/67
[2024-06-16] MEDS: ADACEL 0.5 ML IM (22:50)
== END 2024-06-16 22:58 | disposition home or self-care (01) ==
LOC: EMR 21:19
PROVIDERS: EMERGENCY PHYSICIAN Emergency Medicine; FAMILY PHYSICIAN Internal Medicine
DX: S61.205A Unspecified open wound of left ring finger without damage to nail, initial encounter (principal); W26.8XXA Contact with other sharp object(s), not elsewhere classified, initial encounter; I48.91 Unspecified atrial fibrillation; I10 Essential (primary) hypertension; Z95.0 Presence of cardiac pacemaker; Z87.891 Personal history of nicotine dependence; Z79.01 Long term (current) use of anticoagulants; Z23 Encounter for immunization
CPT/HCPCS: 99282; 90471; 90715

== ENCOUNTER → 2024-06-19 14:56 | Outpatient (REF) | payer MEDICARE, SELFPAY | LOC: WOUND 14:56 | PROVIDERS: ATTENDING PHYSICIAN Surgery; FAMILY PHYSICIAN Internal Medicine | DX: I87.311 Chronic venous hypertension (idiopathic) with ulcer of right lower extremity (principal); L97.211 Non-pressure chronic ulcer of right calf limited to breakdown of skin; Z86.39 Personal history of other endocrine, nutritional and metabolic disease; Z87.891 Personal history of nicotine dependence; E11.9 Type 2 diabetes mellitus without complications; I87.2 Venous insufficiency (chronic) (peripheral); I10 Essential (primary) hypertension | CPT/HCPCS: 29581; 99213 ==

== ENCOUNTER → 2024-06-27 14:31 | Outpatient (REF) | payer MEDICARE, SELFPAY | LOC: WOUND 14:31 | PROVIDERS: ATTENDING PHYSICIAN Surgery; FAMILY PHYSICIAN Internal Medicine | DX: I87.311 Chronic venous hypertension (idiopathic) with ulcer of right lower extremity (principal); L97.211 Non-pressure chronic ulcer of right calf limited to breakdown of skin; E11.9 Type 2 diabetes mellitus without complications; I87.2 Venous insufficiency (chronic) (peripheral); I10 Essential (primary) hypertension; Z86.39 Personal history of other endocrine, nutritional and metabolic disease; Z87.891 Personal history of nicotine dependence | CPT/HCPCS: 29581; 99213 ==

== ENCOUNTER → 2024-07-03 13:53 | Outpatient (REF) | payer MEDICARE, SELFPAY | LOC: WOUND 13:53 | PROVIDERS: ATTENDING PHYSICIAN Surgery; FAMILY PHYSICIAN Internal Medicine | DX: I87.311 Chronic venous hypertension (idiopathic) with ulcer of right lower extremity (principal); L97.211 Non-pressure chronic ulcer of right calf limited to breakdown of skin; E11.9 Type 2 diabetes mellitus without complications; I87.2 Venous insufficiency (chronic) (peripheral); I10 Essential (primary) hypertension; Z86.39 Personal history of other endocrine, nutritional and metabolic disease; Z87.891 Personal history of nicotine dependence | CPT/HCPCS: 99212 ==

== ENCOUNTER 2024-07-15 21:45 | Emergency (ER) | payer MEDICARE, SELFPAY ==
[2024-07-15 21:54] VITALS: BP 168/81
[2024-07-15 22:16] VITALS: BP 144/80
--- NOTE | 2024-07-15 23:00 | ED.GENMED ---
History of Present Illness
General
Chief Complaint: Oral/Mouth Problem
Source: patient and family
Time Seen by Provider: 07/15/24 22:52
History of Present Illness
History of Present Illness:
THis is an 79yo female on ELiquis who presents with bleeding from the underside of her tongue. Daughter states that her tongue got stuck in part of her metal dental apparatus. Patient offers no other complaints. She did not take tonight's Eliquis
dosing yet
Past History
Past History
ED Past Medical History: Arrthythmia (V. tach), HTN, Hypercholesterolemia, Hypothyroidism and Other (RA, colon Polyps)
ED Past Surgical History: Cholecystectomy, Gynecological (Hysterectomy), Orthopedic (bilateral knee replacements) and Other (noncontributory )
Social History
Tobacco: Former smoker (quit 20 years ago)
Alcohol: None
Drug: None
Personal:
Living: with family
Employment: Retired
Family History
Family History: Other (n/c)
Phy Exam
Physical Exam
Physical Exam:
CONSTITUTIONAL Vital signs reviewed, Patient alert and oriented to person, place and time. Well-appearing
HEAD atraumatic, normocephalic.
EYES eyelids normal to inspection, Extraocular muscles intact, Conjunctiva normal, Sclera normal.
ENT small skin flap laceration to the underside the left side of the tongue with active bleeding
NECK normal range of motion, Trachea midline, no jugular venous distention.
RESP no respiratory distress
BACK No obvious deformities
UPPER EXTREMITY Gross Range of motion normal, gross motor strength normal
LOWER EXTREMITY Gross range of motion normal, Gross motor strength normal
NEURO Speech normal, No focal motor deficits include, [place] coma scale 15, Memory normal, Cranial Nerves intact to screening exam.
SKIN Skin warm, dry, and normal in color.
PSYCHIATRIC Patient oriented to person place and time, Normal affect.
Course
Vital Signs
Initial and Last Documented VS:
Initial Vital Signs
Pulse Resp BP Pulse Ox
62 18 168/81 98
07/15/24 21:54 07/15/24 21:54 07/15/24 21:54 07/15/24 21:54
Last Documented Vital Signs
Pulse Resp BP Pulse Ox
60 18 144/80 98
07/15/24 22:16 07/15/24 22:16 07/15/24 22:16 07/15/24 22:16
Procedures
Laceration Closure
Tongue:
Status of Wound: clean
Description of Wound Edges: flap-well vascularized
Anesthesia: 1% Lidocaine with epi
Revision/Debridement: routine- no revision
Wound exploration: explored to base- no FB
Type of Closure: single layer closure
Number of sutures: 1
Additional information:
[id number] hemostatic stitch applied and hemostasis achieved
MDM/Problems Addressed
MDM/Problems Addressed:
Tongue laceration, therapeutic coagulopathy
*Pulse Oximetry
Patient hypoxic: no
*Critical Care Note
Total Time (30-74mins, 75-104mins- exclusive of procedures): Not Applicable
Data Reviewed
Source: patient and family
Prescriptions/Medications Considered But Not Given:
Considered 6-year-old Xarelto reversal but hemostatic stitch has resolved the bleeding
Patient Management
Escalation/DeEscalation of care consider admission/obs:
Hemostasis achieved with [id number] stitch and injection of lidocaine with epinephrine
ED Attending Note
-
Portions of this chart may have been created with voice recognition software.� Occasional wrong word or��sound alike� substitutions may have occurred due to the inherent limitations of voice recognition software.
Discharge Plan
Departure
Patient Disposition: Home (Routine Discharge)
Date of Disposition: 07/16/24
Time of Disposition: 00:05
Patient with high blood pressure during this ER visit?: No
Discharge Problem:
Tongue laceration
Prescriptions:
No Action
calcium phosphate-vitamin D3 [Caltrate Gummy Bites] 1 EACH tablet,chewable
1 ea PO BID
Eliquis 5 MG tablet
5 mg PO BID Qty: 60 11RF
cyanocobalamin (vitamin B-12) 1,000 MCG tablet
1,000 mcg PO DAILY
magnesium oxide 500 MG tablet
500 mg PO DAILY Qty: 30 3RF
amiodarone [Pacerone] 200 MG tablet
200 mg PO DAILY
levothyroxine [Levoxyl] 137 mcg Tablet
137 mcg PO DAILY
lisinopril 20 mg Tablet
20 mg PO DAILY
therapeutic multivitamin Tablet
1 tab PO DAILY
metoprolol succinate 25 mg Tablet Extended Release 24 Hr
25 mg PO BID
Rx Instructions:
take with 50mg for total of 75mg
metoprolol succinate 50 MG tablet extended release 24 hr
50 mg PO BID
Rx Instructions:
take with 25mg for total of 75mg
melatonin 5 mg capsule
5 mg PO DAILY Qty: 30 0RF
Referrals:
Caryn Hurley PA-C [Primary Care Provider] -
Activity Restrictions/Additional Instructions:
Tongue laceration
Please keep diet soft as discussed. Rinse twice daily as discussed. Return immediately for bleeding, swelling or any other concerns.
Interventions
Interventions:
*Risk Screen - Suicide Last Done: 07/15/24 21:58
*General Assessment Last Done: 07/15/24 22:15
*Neglect/Abuse Screening Last Done: 07/15/24 21:58
*ED- Fall Risk Assessment Last Done: 07/15/24 22:15
*ED COVID-19 Vaccine History Last Done: 07/15/24 22:10
Discharge Date and Time
Print Language: WELSH
== END 2024-07-16 00:20 | disposition home or self-care (01) ==
LOC: EMR 21:45
PROVIDERS: EMERGENCY PHYSICIAN Emergency Medicine; PRIMARYCARE PHYSICIAN Physician Assistant
DX: S01.512A Laceration without foreign body of oral cavity, initial encounter (principal); W45.8XXA Other foreign body or object entering through skin, initial encounter; Z98.818 Other dental procedure status; E03.9 Hypothyroidism, unspecified; E78.00 Pure hypercholesterolemia, unspecified; I10 Essential (primary) hypertension; Z87.891 Personal history of nicotine dependence; Z79.01 Long term (current) use of anticoagulants
CPT/HCPCS: 41250; 99282

== ENCOUNTER → 2024-08-08 11:34 | Outpatient (REF) | payer MEDICARE, SELFPAY | LOC: HWWDC 11:34 | PROVIDERS: ATTENDING PHYSICIAN Obstetrics & Gynecology Gynecology; FAMILY PHYSICIAN Internal Medicine | DX: Z12.31 Encounter for screening mammogram for malignant neoplasm of breast (principal) | CPT/HCPCS: 77063; 77067 ==

== ENCOUNTER 2024-08-23 10:37 | Outpatient (RCR) | payer MEDICARE, SELFPAY | END 2024-08-23 23:59 | disposition home or self-care (01) | LOC: RPT 10:37 | PROVIDERS: ATTENDING PHYSICIAN Internal Medicine; FAMILY PHYSICIAN Physician Assistant | DX: I89.0 Lymphedema, not elsewhere classified (principal); Z73.6 Limitation of activities due to disability; R26.2 Difficulty in walking, not elsewhere classified; R26.89 Other abnormalities of gait and mobility | CPT/HCPCS: 97162; 97530; 97760 ==

== ENCOUNTER 2024-09-05 06:16 | Day surgery (SDC) | payer MEDICARE, SELFPAY ==
[2024-09-05 10:15] VITALS: BP 122/71
[2024-09-05 10:42] VITALS: BMI 41.2
[2024-09-05 10:43] VITALS: BMI 41.2
[2024-09-05 12:06] VITALS: BP 99/63
[2024-09-05 12:15] VITALS: BP 96/64
[2024-09-05 12:30] VITALS: BP 94/59
[2024-09-05 12:45] VITALS: BP 111/70
[2024-09-05 13:00] VITALS: BP 122/75
== END 2024-09-05 13:21 | disposition home or self-care (01) ==
LOC: SDS 06:16
PROVIDERS: ATTENDING PHYSICIAN Specialist; FAMILY PHYSICIAN Physician Assistant
DX: Z12.11 Encounter for screening for malignant neoplasm of colon (principal); K63.5 Polyp of colon; K57.30 Diverticulosis of large intestine without perforation or abscess without bleeding; D17.5 Benign lipomatous neoplasm of intra-abdominal organs; K56.2 Volvulus; K64.4 Residual hemorrhoidal skin tags; Z86.0101 Personal history of adenomatous and serrated colon polyps
CPT/HCPCS: 45380; 88305

== ENCOUNTER 2024-09-13 03:00 | Emergency (ER) | payer MEDICARE, SELFPAY ==
[2024-09-13] VITALS (8 sets, daily range): BP systolic 94–147; BP diastolic 50–89; BMI 41.3
--- NOTE | 2024-09-15 02:57 | ED.GENMED ---
History of Present Illness
General
Chief Complaint: Nose Bleed
Source: patient
Time Seen by Provider: 09/13/24 03:23
Nursing documentation reviewed up to this point in time: agreed with
History of Present Illness
History of Present Illness:
Note:
CHIEF COMPLAINT(S)
Nosebleed.
HISTORY OF PRESENT ILLNESS
The patient is an 79-year-old female who presented with a nosebleed. The bleeding originated from the left nostril. Upon examination, there was significant bleeding, and a Merracelle sponge was inserted into the left nostril to apply pressure and
support hemostasis. Medications were also applied to assist in stopping the bleeding. The patient is currently on apixaban (Eloquist), and it was confirmed she had taken her last dose recently. The bleeding was observed to be coming primarily from
the nose, although there was also blood in the back of the throat, suggesting posterior involvement as well. Efforts were made to prevent blood from running down the throat, instructing the patient to lean forward.
SOCIAL HISTORY
The patient was noted to have left wine consumption, though no specific details on frequency or quantity were given.
MEDICATIONS
The patient is currently taking apixaban (Eloquist).
PHYSICAL EXAM
- Nose: Merracelle sponge packing placed in the left nostril; bleeding present in both anterior and posterior areas.
- Throat: Blood noted in the back of the throat.
PROBLEM LIST
Acute:
- Epistaxis (nosebleed)
PLAN
- Monitor the patient closely for bleeding cessation.
- Consider using a vasoconstrictor if bleeding continues despite initial interventions.
- Re-evaluate the patient in approximately 30 minutes to assess the effectiveness of the treatment and check for continued bleeding.
DIFFERENTIAL DIAGNOSIS
The Differential Diagnosis includes, in no particular order and is not limited to:
1. Anticoagulant-related bleeding
CARE-UPDATE
09/13/24 - 04:36
Pleading has not resumed; packing still in place.
Disposition:
SUMMARY OF ENCOUNTER
The patient is an 79-year-old female who presented to the emergency department with a nosebleed originating from the left nostril. A Merocel sponge was inserted to achieve hemostasis, and the bleeding subsided after treatment. The patient has been
under observation for over three hours, showing no further signs of bleeding, and she is stable.
DISPOSITION
Discharge
ASSESSMENT
The patient was treated for epistaxis likely exacerbated by her concurrent use of the anticoagulant apixaban (Eliquis).
REASSESSMENT
The patient has been reassessed, and no further bleeding is observed. She remains stable, with no new symptoms or complaints.
PLAN
The patient will be discharged with instructions to follow up with an ENT specialist for further evaluation and management as needed.
PROCEDURES
Merocel sponge packing was placed in the left nostril to control bleeding.
PATIENT EDUCATION AND COUNSELING
The patient was informed about the importance of following up with an ENT specialist and instructed on measures to prevent further nosebleeds, such as avoiding nose picking and hot environments. She was advised on positioning to minimize the risk of
blood running down the throat in case of recurrent bleeding.
FOLLOW-UP INSTRUCTIONS
Follow up with an ENT specialist as scheduled.
MEDICATION RECONCILIATION
The patient is currently on apixaban (Eliquis) for an unspecified condition.
MEDICAL DECISION MAKING
-Complexity of Data Reviewed: The differential diagnosis includes anticoagulant-related bleeding, trauma to the nasal passages, and hypertension-induced bleeding, among others.
-Data:
Category 3
Discussion of management with the patient and her family regarding follow-up care and potential precautions.
-Risk: Consideration of Admission/Observation: Escalation of care including admission/observation was considered given the complexity and risk of the patients presenting complaint, exam findings, and her underlying comorbidities. However, ultimately
I feel the patient is safe for outpatient management with close follow-up. Reasoning: Work-up reassuring, does not reveal any acute life/organ-threatening processes, patients symptoms well controlled upon reevaluation, reexamination is reassuring,
vitals are stable, patient agreeable with discharge, reliable for follow-up.
DIAGNOSIS
Epistaxis (nosebleed) - ICD-10: R04.0
Past History
Past History
ED Past Medical History: Arrthythmia (V. tach), HTN, Hypercholesterolemia, Hypothyroidism and Other (RA, colon Polyps)
ED Past Surgical History: Cholecystectomy, Gynecological (Hysterectomy), Orthopedic (bilateral knee replacements) and Other (noncontributory )
Social History
Tobacco: Former smoker (quit 20 years ago)
Alcohol: None
Drug: None
Personal:
Living: with family
Employment: Retired
Family History
Family History: Other (n/c)
Phy Exam
Physical Exam
Physical Exam:
.
Course
Vital Signs
Initial and Last Documented VS:
Initial Vital Signs
BP
147/89
09/13/24 03:02
Last Documented Vital Signs
Temp Pulse Resp BP Pulse Ox
98.0 F 60 16 113/50 98
09/13/24 08:05 09/13/24 08:05 09/13/24 08:05 09/13/24 08:05 09/13/24 08:05
Procedures
Nosebleed
Drug treatment: Epinephrine
Treatment: local pressure applied and Merocel packing
Post treatment bleeding: none- good control
*Pulse Oximetry
SaO2: 98
Oxygen Mode of Delivery: Room air
Patient hypoxic: no
*Critical Care Note
Total Time (30-74mins, 75-104mins- exclusive of procedures): Not Applicable
ED Attending Note
-
Portions of this chart may have been created with voice recognition software.� Occasional wrong word or��sound alike� substitutions may have occurred due to the inherent limitations of voice recognition software.
Discharge Plan
Departure
Patient Disposition: Home (Routine Discharge)
Date of Disposition: 07/09/25
Time of Disposition: 07:09
Patient with high blood pressure during this ER visit?: Yes
Condition: Fair
Discharge Problem:
Epistaxis
Instructions: Nosebleeds (DC), BLOOD PRESSURE
Prescriptions:
New
cephalexin 250 mg capsule
250 mg PO BID 7 Days Qty: 14 0RF
No Action
calcium phosphate-vitamin D3 [Caltrate Gummy Bites] 1 EACH tablet,chewable
1 ea PO BID
Eliquis 5 MG tablet
5 mg PO BID Qty: 60 11RF
cyanocobalamin (vitamin B-12) 1,000 MCG tablet
1,000 mcg PO DAILY
magnesium oxide 500 MG tablet
500 mg PO DAILY Qty: 30 3RF
amiodarone [Pacerone] 200 MG tablet
200 mg PO DAILY
levothyroxine [Levoxyl] 137 mcg Tablet
137 mcg PO DAILY
lisinopril 20 mg Tablet
10 mg PO DAILY
Patient Comments:
Primary MD has this medication on hold for now due to low blood pressure.
therapeutic multivitamin Tablet
1 tab PO DAILY
metoprolol succinate 50 MG tablet extended release 24 hr
75 mg PO BID
Rx Instructions:
take with 25mg for total of 75mg
Referrals:
Lai Ward MD [Active, Otology]
Jp Mccabe MD [Family Provider, Internal Medicine]
Activity Restrictions/Additional Instructions:
Thank You for choosing [facility].
It was a pleasure meeting you and taking part in your care. We hope for your continued healing and wellness.
Please read discharge instructions in their entirety. However, they are for general education and may not describe your exact diagnosis at discharge. Information on your ER visit and medical conditions were discussed with you along with appropriate
follow up information...
If indicated, please take your medications as instructed and indicated on discharge paperwork.
Please schedule a follow up appointment as directed. Call to schedule an appointment
Please return to the emergency department with ANY change in, persisting, or worsening of symptoms. If any of your symptoms do not improve, or persist, or become more severe within 6-12 hours, please return to the emergency department for further
care.
Please return to the emergency department if you develop a headache, neck pain/stiffness, fever greater than 100.4F, chest pain, shortness of breath, persistent nausea, vomiting, slurred speech, difficulty walking, numbness/tingling, weakness, signs
of infection or any other symptoms that are worrisome to you.
If you have any questions or concerns please do not hesitate to call the Hospital at or E-mail me directly at [email or web address]
Interventions
Interventions:
*Risk Screen - Suicide Last Done: 09/13/24 03:10
*General Assessment Last Done: 09/13/24 03:10
*Neglect/Abuse Screening Last Done: 09/13/24 03:10
*ED- Fall Risk Assessment Last Done: 09/13/24 03:10
*ED COVID-19 Vaccine History Last Done: 09/13/24 07:17
*Nursing Disposition Last Done: 09/13/24 08:05
ED-EENT Assessment Last Done: 09/13/24 03:40
Discharge Date and Time
Discharge Date/Time: 09/13/24 08:07
Print Language: TELUGU
== END 2024-09-13 08:07 | disposition home or self-care (01) ==
LOC: EMR 03:00
PROVIDERS: EMERGENCY PHYSICIAN Student in an Organized Health Care Education/Training Program; FAMILY PHYSICIAN Internal Medicine
DX: R04.0 Epistaxis (principal); I10 Essential (primary) hypertension; E78.00 Pure hypercholesterolemia, unspecified; E03.9 Hypothyroidism, unspecified; I48.91 Unspecified atrial fibrillation; M06.9 Rheumatoid arthritis, unspecified; E11.9 Type 2 diabetes mellitus without complications; Z96.653 Presence of artificial knee joint, bilateral; Z95.810 Presence of automatic (implantable) cardiac defibrillator; Z87.891 Personal history of nicotine dependence; Z79.01 Long term (current) use of anticoagulants; Z90.49 Acquired absence of other specified parts of digestive tract; Z88.5 Allergy status to narcotic agent; Z88.8 Allergy status to other drugs, medicaments and biological substances
CPT/HCPCS: 99283; 30901

== ENCOUNTER 2024-09-15 18:49 | Emergency (ER) | payer MEDICARE, SELFPAY ==
[2024-09-15 18:51] VITALS: BP 139/99
--- NOTE | 2024-09-15 22:05 | ED.GENMED ---
History of Present Illness
General
Chief Complaint: Nose Bleed
Source: patient
Exam Limitations: none
Time Seen by Provider: 09/15/24 21:53
History of Present Illness
History of Present Illness:
See MDM
Past History
Past History
ED Past Medical History: Arrthythmia (V. tach), HTN, Hypercholesterolemia, Hypothyroidism and Other (RA, colon Polyps)
ED Past Surgical History: Cholecystectomy, Gynecological (Hysterectomy), Orthopedic (bilateral knee replacements) and Other (noncontributory )
Social History
Tobacco: Former smoker (quit 20 years ago)
Alcohol: None
Drug: None
Personal:
Living: with family
Employment: Retired
Family History
Family History: Other (n/c)
Phy Exam
Physical Exam
Physical Exam:
See MDM
Course
Vital Signs
Initial and Last Documented VS:
Initial Vital Signs
Pulse Resp BP Pulse Ox
76 18 139/99 94
09/15/24 18:51 09/15/24 18:51 09/15/24 18:51 09/15/24 18:51
Last Documented Vital Signs
Pulse Resp BP Pulse Ox
76 18 139/99 94
09/15/24 18:51 09/15/24 21:58 09/15/24 18:51 09/15/24 22:08
Procedures
Nosebleed
Drug treatment: Lidocaine and Epinephrine
Treatment: local pressure applied, Silver nitrate cautery and other (Anterior nose balloon)
Post treatment bleeding: none- good control
MDM/Problems Addressed
Differential Diagnosis Includes:
HPI and MDM Narrative:
79-year-old female presenting back to the emergency department for left sided nosebleeding. Patient was seen less than 24 hours ago and required Merisel packing. She followed up with ENT earlier today. The packing was removed and there was no
bleeding sent home. She developed significant left-sided nosebleeding just prior to arrival. Patient is on Eliquis
On exam, patient does have bleeding to the left nare. It appears to be stemming from the nasal septum. I attempted silver nitrated cautery but it continued to bleed. She required a 4.5 cm nasal balloon which controlled the bleeding
Physical exam
General: Well appearing and non-toxic
HEENT: protecting airway. Left-sided nasal bleeding
Neck: appears supple
CV: No evidence of cyanosis
Resp: No accessory muscle use
Abd: Non-distended
Extremities: No deformities
Neuro: alert
Psych: Normal affect
Skin: Intact
Problems Addressed including Acute and Chronic Conditions affecting care:
1. Nosebleed
Acuity: acute
Prognosis: stable
Details: Given the persistent bleeding despite silver nitrated cautery, anterior nosebleed and placed
Updates
10:30 PM on multiple reassessments, patient remains well-appearing. The bleeding has completely resolved. Discussed calling ENT this weekend for follow-up
Differential Diagnosis (but not limited to): Anterior nosebleed, posterior nosebleed
Testing considered: Hemoglobin testing
Drug therapy (if applicable): OTC meds, please see d/c instruction regarding Rx drugs
Amount and/or Complexity of Data Reviewed
Clinical info obtained from: Patient
External data reviewed: Recent ER evaluation for the same thing
Labs I independently reviewed (but not limited to): N/A
Radiology: N/A
Pulse Ox: not hypoxic
EKG independently reviewed: N/A
Wooden Frame Builder: N/A
Critical Care: N/A
Risk of Complication:
Social Determinants of health: Good social support
Discussed with other providers: N/A
Escalation of Care includes Admit/Obs: After being observed in the Emergency Department, pt stable for discharge.
Occasional wrong word or 'sound a like' substitutions may have occurred due to the inherent limitations of voice recognition software. Read the chart carefully and recognize, using context, where substitutions have occurred.
*Pulse Oximetry
SaO2: 94
Patient hypoxic: no
*Critical Care Note
Total Time (30-74mins, 75-104mins- exclusive of procedures): Not Applicable
ED Attending Note
-
Portions of this chart may have been created with voice recognition software.� Occasional wrong word or��sound alike� substitutions may have occurred due to the inherent limitations of voice recognition software.
Discharge Plan
Departure
Patient Disposition: Home (Routine Discharge)
Date of Disposition: 09/15/24
Time of Disposition: 22:30
Patient with high blood pressure during this ER visit?: No
Discharge Problem:
Acute anterior epistaxis
Instructions: Nosebleeds (DC)
Prescriptions:
No Action
calcium phosphate-vitamin D3 [Caltrate Gummy Bites] 1 EACH tablet,chewable
1 ea PO BID
Eliquis 5 MG tablet
5 mg PO BID Qty: 60 11RF
cyanocobalamin (vitamin B-12) 1,000 MCG tablet
1,000 mcg PO DAILY
magnesium oxide 500 MG tablet
500 mg PO DAILY Qty: 30 3RF
amiodarone [Pacerone] 200 MG tablet
200 mg PO DAILY
levothyroxine [Levoxyl] 137 mcg Tablet
137 mcg PO DAILY
lisinopril 20 mg Tablet
10 mg PO DAILY
Patient Comments:
Primary MD has this medication on hold for now due to low blood pressure.
therapeutic multivitamin Tablet
1 tab PO DAILY
metoprolol succinate 50 MG tablet extended release 24 hr
75 mg PO BID
Rx Instructions:
take with 25mg for total of 75mg
cephalexin 250 mg capsule
250 mg PO BID 7 Days Qty: 14 0RF
Activity Restrictions/Additional Instructions:
Please return for any worsening symptoms.
You may return at any time if you have further concerns.
Please follow up with your ENT doctor at the first available appointment, preferably this week.
Thank you for choosing [facility].
Interventions
Interventions:
*Risk Screen - Suicide Last Done: 09/15/24 18:54
*General Assessment Last Done: 09/15/24 18:53
*Neglect/Abuse Screening Last Done: 09/15/24 18:54
*ED- Fall Risk Assessment Last Done: 09/15/24 18:53
*ED COVID-19 Vaccine History Last Done: 09/15/24 21:59
ED-EENT Assessment Last Done: 09/15/24 21:58
Discharge Date and Time
Print Language: SLOVENIAN
== END 2024-09-15 23:02 | disposition home or self-care (01) ==
LOC: EMR 18:49
PROVIDERS: EMERGENCY PHYSICIAN Student in an Organized Health Care Education/Training Program; FAMILY PHYSICIAN Internal Medicine
DX: R04.0 Epistaxis (principal); I10 Essential (primary) hypertension; E78.00 Pure hypercholesterolemia, unspecified; E03.9 Hypothyroidism, unspecified; M06.9 Rheumatoid arthritis, unspecified; Z79.01 Long term (current) use of anticoagulants; Z96.653 Presence of artificial knee joint, bilateral; Z87.891 Personal history of nicotine dependence; Z86.0100 Personal history of colon polyps, unspecified; Z90.49 Acquired absence of other specified parts of digestive tract; Z88.5 Allergy status to narcotic agent; Z88.8 Allergy status to other drugs, medicaments and biological substances
CPT/HCPCS: 99283; 30901

== ENCOUNTER → 2024-11-03 10:59 | Outpatient (REF) | payer MEDICARE, SELFPAY ==
[2024-11-03 16:24] LABS: Hematocrit 40.6 % (37.0-47.0); Hemoglobin 13.2 g/dL (12.0-16.0); Mean Corp Hgb Conc. 32.5 g/dL (33.0-37.0); Mean Corpuscular Volume 105.5 fL (81.0-99.0); Nucleated Red Blood Cells % 0 %; Platelet Count 147 10^3/uL (130-400); Red Cell Dist. Width 15.8 % (11.5-14.5)
[2024-11-03 16:33] LABS: Albumin 3.4 g/dl (3.5-5.0); Blood Urea Nitrogen 44 mg/dl (7-17); Calcium 9.2 mg/dl (8.4-10.2); Carbon Dioxide 34 mmol/L (22-30); Chloride 105 mmol/L (98-107); Glucose 81 mg/dl (70-99); Potassium 4.9 mmol/L (3.5-5.1); Sodium 142 mmol/L (135-145); eGFR 32.40
[2024-11-04 08:54] LABS: Glycohemoglobin (HgbA1c) 5.6 % (4.0-5.6)
== END ==
LOC: HWLAB 10:59
PROVIDERS: ATTENDING PHYSICIAN Internal Medicine
DX: R41.0 Disorientation, unspecified (principal); E74.39 Other disorders of intestinal carbohydrate absorption; E03.9 Hypothyroidism, unspecified
CPT/HCPCS: 36415; 80069; 83036; 84443; 85025

== ENCOUNTER 2024-11-20 20:32 | Inpatient (IN) | payer MEDICARE, SELFPAY ==
[2024-11-20] VITALS (19 sets, daily range): BP systolic 65–124; BP diastolic 42–75; BMI 40.5
[2024-11-20 14:01] LABS: Hematocrit 39.8 % (37.0-47.0); Hemoglobin 13.2 g/dL (12.0-16.0); Mean Corp Hgb Conc. 33.2 g/dL (33.0-37.0); Mean Corpuscular Volume 106.1 fL (81.0-99.0); Nucleated Red Blood Cells % 0.4 %; Platelet Count 104 10^3/uL (130-400); Red Cell Dist. Width 16.4 % (11.5-14.5)
[2024-11-20 14:48] LABS: ALT (SGPT) 34 U/L (0-35); AST (SGOT) 34 U/L (14-36); Albumin 3.3 g/dl (3.5-5.0); Alkaline Phosphatase 117 U/L (38-126); Blood Urea Nitrogen 41 mg/dl (7-17); Calcium 9.3 mg/dl (8.4-10.2); Carbon Dioxide 26 mmol/L (22-30); Chloride 112 mmol/L (98-107); Glucose 115 mg/dl (70-99); Potassium 4.4 mmol/L (3.5-5.1); Sodium 142 mmol/L (135-145); Total Protein 6.3 g/dl (6.3-8.2); eGFR 38.03
--- NOTE | 2024-11-20 18:14 | ED.GENMED ---
History of Present Illness
General
Chief Complaint: Fatigue
Source: patient and family (Daughter who is at the bedside)
Exam Limitations: none
Time Seen by Provider: 11/20/24 17:46
Nursing documentation reviewed up to this point in time: agreed with
History of Present Illness
History of Present Illness:
The patient is an 79-year-old female who was brought in by her daughter for excessive sleepiness and fatigue. Her daughter reports that for about 8 months, the patient has been sleeping excessively. Additionally, she reports that at times her
mother seems to hallucinate, especially in the morning. Her daughter reports that she has been to her primary care doctor multiple times for blood work. Patient has had no fever, chest pain, shortness of breath, headache, rash or sore throat. Her
daughter reports that recently the patient was found to have a body temperature of 95 degrees. On arrival, patient's body temperature was undetectable. Patient denies any specific areas of pain and describes chronic body aches, including neck
pain. She reports she just feels extremely tired
Past History
Past History
ED Past Medical History: Arrthythmia (V. tach), HTN, Hypercholesterolemia, Hypothyroidism and Other (RA, colon Polyps)
ED Past Surgical History: Cardiac (Pacemaker/defibrillator), Cholecystectomy, Gynecological (Hysterectomy), Orthopedic (bilateral knee replacements) and Other (noncontributory )
Social History
Tobacco: Former smoker (quit 20 years ago)
Alcohol: None
Drug: None
Personal:
Living: with family
Employment: Retired
Family History
Family History: Other (n/c)
Review of Systems
Review of Systems
Allergies reviewed?: Yes
Other source history: family
All Other Systems: ROS reviewed and negative except as documented in HPI and ROS
Constitutional: Reports fatigue and sleep disturbance
EENT: Reports no symptoms
Respiratory: Reports no symptoms
Cardiac: Reports no symptoms
ABD/GI: Reports no symptoms
: Reports no symptoms
Musculoskeletal: Reports no symptoms
Skin: Reports no symptoms
Neurological: Reports weakness (Generalized weakness)
Endocrine: Reports no symptoms
Hematologic/Lymphatic: Reports no symptoms
Psychiatric: Reports no symptoms
Phy Exam
Physical Exam
Physical Exam:
Physical Exam
General: no apparent distress but appears slightly sleepy. However, fully arousable and answers all questions appropriately
Neck: supple. no meningeal signs. normal psoterior pharynx
Heart: s1/s2 regular rate and rhythm, no murmur. equal radial pulses.
Lungs: no acute respiratory distress. clear bilaterally
Abdomen: normal bowel sounds. not tender. no CVAT
Neuro: alert and orientedx3. no focal neurological deficits
Skin: Cool to the touch. Bilateral lower extremity skin erythema. Open wound of skin posterior right lower leg. Patient and daughter reports that the skin findings are chronic and ' usually look worse'
Psychiatric: well kept. interactive and cooperative
Extremities: 1+ pitting edema in bilateral lower extremities. Negative Homans' sign
Course
Orders/Labs/Results
Orders:
Orders
11/20/24 13:32
Complete Blood Count/With Diff Urgent
Comprehensive Metabolic Panel Urgent
Cortisol, Random Urgent
Lactic Acid Q4H
Comment: ON ICE, CANCEL 2ND ORDER IF FIRST LACTIC ACID LEVEL <2
TSH Urgent
Comment: ADD ON
Blood Culture Q20M
HEATHER Source: Blood/Venous
Specimen Description:
Comment: Urgent from separate sites. If patient screens positive for possible sepsis
11/20/24 18:32
Add On- LAB Urgent
Tests Added?: TSH
11/20/24 18:33
Parikh Placement- Treatment ONCE
Reason for insertion: Acute Kidney Injury
11/20/24 18:34
Electrocardiogram (*1) Urgent
Reason for Study: Fatigue / Weakness
EKG- Treatment ONCE
11/20/24 18:35
0.9% Sodium Chloride 1000 ml [Nss] 1,000 ml IV BOLUS
11/20/24 18:36
Urinalysis Reflex To Culture Urgent
Date Specimen was Collected: 11/20/24
Time Specimen was Collected: 19:27
11/20/24 19:08
Add On- LAB Stat
Tests Added?: cortisol
11/20/24 19:18
0.9% Sodium Chloride 1000 ml [Nss] 1,000 ml IV BOLUS
11/20/24 19:21
CR Chest Portable - 1 View Urgent
Comment:
Reason For Exam: hypotensive
Reason Study Needs to be Portable: Patient Unstable
11/20/24 19:27
Blood Culture Q20M
HEATHER Source: Blood/Venous
Specimen Description:
Comment: Urgent from separate sites. If patient screens positive for possible sepsis
11/20/24 19:52
Cefepime HCl [Maxipime] 2,000 mg IV NOW STA
Sterile Water [Sterile Water For Injection] 10 ml IV NOW STA
11/20/24 19:56
Vancomycin [Vancocin] 2,000 mg 0.9% Sodium Chloride 500 ml [Nss] 500 ml IV NOW
Abnormal Lab Results
11/20/24
13:32
WBC 4.6 L 10^3/uL
(4.8-10.8)
RBC 3.75 L 10^6/uL
(4.20-5.40)
MCV 106.1 H fL
(81.0-99.0)
MCH 35.2 H pg
(27.0-31.0)
RDW 16.4 H %
(11.5-14.5)
Plt Count 104 L 10^3/uL
(130-400)
MPV 11.2 H fL
(7.4-10.4)
Absolute Lymphs (auto) 0.7 L 10^3/uL
(1.2-3.4)
Neutrophils % 76.8 H %
(42.2-75.2)
Lymphocytes % 15.3 L %
(20.5-51.1)
Chloride 112 H mmol/L
(98-107)
BUN 41 H mg/dl
(7-17)
Creatinine 1.4 H mg/dL
(0.6-1.0)
Glucose 115 H mg/dl
(70-99)
Albumin 3.3 L g/dl
(3.5-5.0)
11/20/24 13:32
11/20/24 13:32
Vital Signs
Initial and Last Documented VS:
Initial Vital Signs
Pulse Resp BP Pulse Ox
60 20 124/75 94
11/20/24 13:20 11/20/24 13:20 11/20/24 13:20 11/20/24 13:20
Last Documented Vital Signs
Pulse Resp BP Pulse Ox
60 19 87/46 93
11/20/24 19:28 11/20/24 19:28 11/20/24 19:28 11/20/24 19:28
MDM/Problems Addressed
Differential Diagnosis Includes:
Sepsis, adrenal crisis, hypothyroidism
MDM/Problems Addressed:
Patient presents with acute hypotension and hypothermia and chronic fatigue
Chronic conditions affecting care: Arrhythmia
Acute Exacerbation and/or Progression of Chronic Illness:
Patient has no sign of tachycardia or cardiac arrhythmia at this time
*Radiology
Radiology exam reviewed: preliminary read by ED provider (Chest x-ray reviewed by me. No acute disease) and radiology read reviewed
*Pulse Oximetry
SaO2: 94
Oxygen Mode of Delivery: Room air
Patient hypoxic: no
Comment: Patient is 94% on room air
*EKG
Interpreted by ED Provider?: Yes
Interpretation: abnormal (Significant artifact present due to bear hugger)
Comparison EKG: changes noted
Rate: normal
Rhythm: ventricular paced
Somers: normal axis
QRS Pattern: wide non-specific
Ischemia: other
*Resourcing Consultant Interpretation
Rate: normal
Interpretation: abnormal
Rhythm: other (paced)
*Critical Care Note
Total Time (30-74mins, 75-104mins- exclusive of procedures): 55 minutes
comment:
55 minutes critical care given to the patient including reassessing her blood pressure, mental status, body temperature as well as discussing the case with endocrinology, etch operator semiconductor wafers and hospitalist
Data Reviewed
Review of Other/Old Records Reveals: Discharge Summary (History is reviewed from May 2024 when patient was admitted for hallucinations thought to be due to Parkinson's)
Source: patient
Patient Management
Social determinants of health affecting care: Living situation and Strong social support
Discussion with other providers: Hospitalist and Other (National Service Officer and field hand)
ED Attending Note
-
Portions of this chart may have been created with voice recognition software.� Occasional wrong word or��sound alike� substitutions may have occurred due to the inherent limitations of voice recognition software.
Discharge Plan
Departure
Patient Disposition: Admit
Date of Disposition: 11/20/24
Time of Disposition: 18:49
Admit to: ICU
Presentation/result/management discussed w/ accepting MD/DO: Hospitalist
Patient with high blood pressure during this ER visit?: No
Condition: Critical
Discharge Problem:
Acute hypotension, Hypothermia
Prescriptions:
No Action
calcium phosphate-vitamin D3 [Caltrate Gummy Bites] 1 EACH tablet,chewable
1 ea PO BID
Eliquis 5 MG tablet
5 mg PO BID Qty: 60 11RF
cyanocobalamin (vitamin B-12) 1,000 MCG tablet
1,000 mcg PO DAILY
magnesium oxide 500 MG tablet
500 mg PO DAILY Qty: 30 3RF
amiodarone [Pacerone] 200 MG tablet
200 mg PO DAILY
levothyroxine [Levoxyl] 137 mcg Tablet
137 mcg PO DAILY
lisinopril 20 mg Tablet
10 mg PO DAILY
Patient Comments:
Primary MD has this medication on hold for now due to low blood pressure.
therapeutic multivitamin Tablet
1 tab PO DAILY
metoprolol succinate 50 MG tablet extended release 24 hr
75 mg PO BID
Rx Instructions:
take with 25mg for total of 75mg
cephalexin 250 mg capsule
250 mg PO BID 7 Days Qty: 14 0RF
Interventions
Interventions:
*Risk Screen - Suicide Last Done: 11/20/24 13:20
*General Assessment Last Done: 11/20/24 19:01
*ED COVID-19 Vaccine History Last Done: 11/20/24 19:01
Discharge Date and Time
Print Language: PUERTO RICAN
--- NOTE | 2024-11-20 19:09 | HPS.HSE ---
Family Physician
-
Family Physician:
Chief Complaint
-
Weakness
History of Present Illness
This is a 79-year-old female with past medical history significant for hypertrophic cardiomyopathy, ventricular tachycardia status post ICD, paroxysmal atrial fibrillation, hypertension, obesity, rheumatoid arthritis and hypothyroidism who was
brought into the emergency department by daughter for failure to thrive.
The reported that over the last 1 month the patient has been having some continuous decline in her physical status. She has been more sleepy, and has been having fatigue. Decreased appetite with low p.o. intake. They were seen by primary care
doctor 2 weeks ago and some labs were drawn. They were called today and told that she did have some dehydration at the time but physical exam were normal. There were told to hydrate and if symptoms do not improve go to the emergency department.
Patient has chronic lower extremity lymphedema for which she does get wound care. Did notice some increased weeping but otherwise had new heel ulcer. She has not had any fevers or chills at home. Daughter reports that she has been sleeping 4
hours at a time and with occasional hallucinations.
Patient herself denies having any urinary symptoms. She denies any diarrhea but reports intermittent constipation for which she has been taking laxatives as needed. She denies having any cough. She does report some dyspnea even with talking but
no wheezing. She denies having any chest pain. She denies having any palpitations. She denies feeling dizzy or lightheaded. She denies any numbness or tingling. Patient reports compliance with her medications but states she has trouble
swallowing some of her pills. She denies difficulty swallowing food or water. Daughter reports that she is likely not regularly compliant with her medications and only takes them intermittently. They have stopped taking her blood pressure
medications due to the low blood pressures at home.
On arrival in the emergency department she was hypothermic with a initial core body temperature of 86.7 Fahrenheit, now 31 �C called temp. Blood pressure was hold in the 80s over 50s with a pulse rate around 60. She is satting 94% on room air.
CBC is unremarkable except for a platelet count of 104. Her electrolytes were in the normal range. Creatinine was 1.4 which is same as previous. Glucose was 115. ECG sinus. Xray pending.
Medical History
Past Medical History
Past Medical History: Reports Other (hypertrophic cardiomyopathy, ventricular tachycardia status post ICD, paroxysmal atrial fibrillation, hypertension, obesity, rheumatoid arthritis, )
Past Surgical History: Reports None
Social History
Tobacco: Non-smoker
Alcohol: None
Drug: None
Personal: Single
Living: With Family
Family History
Family History: Not pertinent
Allergies / Home Medications
Allergies reflects when Allergies were last updated in [facility].
Home Medications with original date entered in [facility]
Allergy/Medication List:
Allergies
Allergy/AdvReac Type Severity Reaction Status Date / Time
codeine Allergy Severe nausea/vomi Verified 05/03/24 16:10
ting
celecoxib Allergy Unknown stomach Verified 05/03/24 16:10
pains
Home Medications
calcium 250 mg (as phosphate)-vit D3 10 mcg (400 unit) chewable tablet (Caltrate Gummy Bites) 1 ea PO BID 02/19/17
apixaban 5 mg tablet (Eliquis) 5 mg PO BID #60 tabs 05/18/17
cyanocobalamin (vitamin B-12) 1,000 mcg tablet 1,000 mcg PO DAILY 02/19/18
magnesium oxide 500 mg PO DAILY ##30 02/21/18
amiodarone 200 mg tablet (Pacerone) 200 mg PO DAILY 12/23/18
levothyroxine 137 mcg tablet (Levoxyl) 137 mcg PO DAILY 05/03/24
lisinopril 20 mg tablet 20 mg PO DAILY 05/03/24
metoprolol succinate 25 mg tablet,extended release 24 hr 25 mg PO BID 05/03/24
metoprolol succinate 50 mg tablet,extended release 24 hr 50 mg PO BID 05/03/24
therapeutic multivitamin 1 tab PO DAILY 05/03/24
Review of Systems
-
Constitutional: Reports Fatigue
EENT: Reports No Symptoms
Respiratory: Reports No Symptoms
Cardiac: Reports No Symptoms
Abdomen/GI: Reports Constipated
: Reports No Symptoms
Musculoskeletal: Reports Edema
Skin: Reports Rash
Neurological: Reports Weakness
Endocrine: Reports See HPI
Hematologic/Lymphatic: Reports No Symptoms
Psych: Reports No Symptoms
Physical Exam
Vital Signs
Vital Signs
Pulse Resp BP Pulse Ox
59 12 97/62 94
11/20/24 19:00 11/20/24 18:50 11/20/24 18:50 11/20/24 18:59
Physical Exam
General: Well Developed, Well Nourished and No Apparent Distress
HEENT: NormoCephalic, Moist mucous membranes and Atraumatic
Respiratory: Clear
Cardiac: S1/S2 and Bradycardia; No Murmur or Rub
GI: Soft, Non Tender, Non Distended and Normal Bowel Sounds; No Organomegaly
Rectal: Deferred by Provider
Musculoskeletal: No Clubbing, No Cyanosis, Edema, Left Lower Extremity and Edema, Right Lower Extremity
Skin: Rash (Bilateral lower extremity stasis dermatitis, )
Neuro: AO x 3 and Nonfocal/grossly intact
Laboratory Results
-
11/20/24 13:32
11/20/24 13:32
Laboratory Results
Lactic Acid Cancelled 11/20/24 17:30
Total Bilirubin 1.3 mg/dl (0.2-1.3) 11/20/24 13:32
AST 34 U/L (14-36) 11/20/24 13:32
ALT 34 U/L (0-35) 11/20/24 13:32
Alkaline Phosphatase 117 U/L (38-126) 11/20/24 13:32
Data Reviewed
-
Diagnostic Radiology: Image Personally Visualized and interpreted
Medical Tests (Nuc Med, Echo, EKG etc): Image Personally Visualized and interpreted
Lab Data: Labs Reviewed by me
Old Records: Reviewed
Impression/Plan
-
IMPRESSION:
79-year-old female with past medical history significant for atrial fibrillation on anticoagulation, hypertrophic cardiomyopathy, episode of V. tach status post ICD placement, history of RA and hypothyroidism, hypertension who presents to the
emergency department with progressive weakness, listlessness, sleepiness, loss of appetite but otherwise alert and oriented x 3 in no acute distress found to be hypothermic to 86.7 degrees Fahrenheit on arrival, he is bradycardic to the high 50s
with ECG showing sinus rhythm, chest x-ray was clear. Suspected thyroid extremity edema giving history of suspected noncompliance however TSH was in the normal range at 2.4. CBC is unremarkable. Electrolytes were normal BUN and creatinine were at
baseline. Currently no signs of obvious infection.
PLAN:
Hypothymia for unexplained etiology suspect hormonal but cannot identify the source and cannot rule out sepsis at this time
-Admit to ICU
-Random cortisol pending, if low will start stress dose steroids
-Blood culture
-Urine culture
-Cefepime/Vanc (possible skin source but unlikely)
-CT a/p with iv contrast
- Warming measures, target temp 36
- hold furosemide and lisinopril
- pressors to maintain map > 65
- if renal function stable, consider CT a/p in am
AFIB - Rate controlled and intermittently jesse
- continue eliquis 5 bid
- continue amio 200 daily
- hold metoprolol tonight and start in am if BP stable
Hypothyroid - TSH 2.4
- continue oral levothyroxin
DVT PPX - on eliquis
Code status - Full Code
[2024-11-20] MEDS: NSS 1000 IV ×3 (19:14→20:20)
[2024-11-20 19:49] LABS: TSH 2.44 uIU/ml (0.47-4.68)
[2024-11-20 19:59] LABS: Cortisol, Random 12.8 ug/dl
[2024-11-20] MEDS: LEVOPHED 250 IV (20:15)
[2024-11-20 20:16] LABS: Urine Character Clear (Clear)
[2024-11-20] MEDS: MAXIPIME 2000 MG IV (20:21)
[2024-11-20] MEDS: STERILE WATER FOR INJECTION 10 ML IV (20:22)
[2024-11-20] MEDS: VANCOCIN 540 MG IV (20:35)
[2024-11-20 21:03] LABS: Urine Red Blood Cell 0-2 /HPF (0-2); Urine White Cell 0-2 /HPF (0-5)
--- NOTE | 2024-11-20 21:05 | PHA.VAN.IN ---
Assessment
- Assessment
Renal Function: SCR Appears Elevated from baseline (1.1 - 1.2)
Concomitant Antimicrobials: cefepime
Plan
- Plan
Initial / Loading Dose: vanc 2000mg
Maintenance Regimen: dosing by level
Monitoring: random level 11/21 06
Pharmacokinetics Vancomycin I
- -
Patient Age: 79
Patient Sex: Female
Vancomycin Day #: 1
Indication: Other
Requesting Provider: Dr. Quezada
Height / Weight:
Actual Weight 113 kg
- Vital Signs / Lab Results
Pulse Resp BP Pulse Ox
60 11 107/60 92
11/20/24 20:30 11/20/24 20:30 11/20/24 20:30 11/20/24 20:30
Lab Results - Hematology
11/20/24
13:32
WBC 4.6 L
Lab Results - Chemistry
11/20/24
13:32
BUN 41 H
Creatinine 1.4 H
Albumin 3.3 L
11/20/24 11/20/24
13:32 17:30
Lactic Acid 0.8 Cancelled
Lab Results - Urine
11/20/24
20:10
Urine Nitrite (Reflex) Negative
Leukocyte Esterase Rfl Negative
Urine WBC (Reflex) 0-2
Ur Squamous Epith Cells 6-10
Urine Bacteria (Reflex) Few A
[2024-11-20 21:41] LABS: Magnesium 2.3 mg/dl (1.6-2.3)
[2024-11-20] MEDS: LR 1000 IV (21:59)
[2024-11-20] MEDS: ELIQUIS 5 MG PO (21:59)
[2024-11-20 22:52] LABS: INR 1.35; PT 17.0 Sec (11.4-14.6)
[2024-11-20 22:53] LABS: APTT 49.3 Sec (23.4-35.0)
[2024-11-21] VITALS (47 sets, daily range): BP systolic 86–125; BP diastolic 42–80; BMI 40.7
--- NOTE | 2024-11-21 00:17 | PTCARENOTE ---
received pt from ED around 2200, Ox3 though @ x's forgetful, weakness in LE's, able to make needs known, PERRLA 3, denies pain, A-paced on the monitor c 1st degree, +2 LE's, doppler pedals, lungs diminished throughout, shallow, orthopneic, 94% on
RA, BSx4 round obese, Thermistor cornell c yellow output, skin per worklist, Lita hugger per order, core temp 91 upon arrival, 0023 93.6, Levo gtt per worklist, LR 75ml/hr, B/L 20G in FA's, 22G R wrist, daughter updated @ bedside and helped with
admission questions, otherwise refer to documentation.
[2024-11-21] MEDS: MAXIPIME 1000 MG IV ×4 (01:30→23:44)
[2024-11-21] MEDS: STERILE WATER FOR INJECTION 10 ML IV ×4 (01:30→23:44)
[2024-11-21 04:38] LABS: Venous Blood Gas B.E. -2.9 mmol/L (-4 to +4); Venous Blood Gas O2 Sat % 95.5 %
--- NOTE | 2024-11-21 04:44 | PTCARENOTE ---
systems reviewed, labs sent, weight obtained, levo gtt per worklist, core temp increased to 96F pastora flynn still applied, otherwise refer to documentation.
[2024-11-21] MEDS: SYNTHROID 137 MCG PO (05:08)
[2024-11-21 05:09] LABS: Hematocrit 34.4 % (37.0-47.0); Hemoglobin 11.5 g/dL (12.0-16.0); Mean Corp Hgb Conc. 33.4 g/dL (33.0-37.0); Mean Corpuscular Volume 106.2 fL (81.0-99.0); Platelet Count 112 10^3/uL (130-400); Red Cell Dist. Width 16.5 % (11.5-14.5)
[2024-11-21 05:43] LABS: Cortisol, Random 17.4 ug/dl
[2024-11-21] MEDS: ELIQUIS 5 MG PO ×2 (08:09→19:55)
[2024-11-21] MEDS: PACERONE 200 MG PO (08:10)
[2024-11-21] MEDS: DESENEX/MITRAZOL/ZEASORB 1 APPLIC TOPICAL ×2 (08:14→20:06)
[2024-11-21 09:00] LABS: Blood Urea Nitrogen 34 mg/dl (7-17); Calcium 8.6 mg/dl (8.4-10.2); Carbon Dioxide 22 mmol/L (22-30); Chloride 117 mmol/L (98-107); Estimated Creatinine Clearance 48 ml/min; Glucose 66 mg/dl (70-99); Magnesium 2.1 mg/dl (1.6-2.3); Potassium 4.5 mmol/L (3.5-5.1); Sodium 143 mmol/L (135-145); eGFR 45.76
--- NOTE | 2024-11-21 09:09 | CON.ID ---
Consultation
-
Date/Time Consultation Requested: 11/21/2024 0540
Date/Time Consultation Performed: 11/21/2024 0910
Requesting Provider: Dr. Connie Quezada
Performing Provider: Dr. Aleisha Velazquez
Reason for Consultation: Suspect sepsis without apparent source
Chief Complaint / Past History
Chief Complaint
poor appetite
History of Present Illness
History obtained from the patient as well as from her daughter at bedside. She is an 79 year old female with hx Afib, HOCM, RA , lymphedema who presented to the ED on November 20 complaining of several day history of poor appetite, malaise,
weakness for the past 4 weeks or more. She denies fevers or chills. No headache. No sinus congestion, rhinorrhea, or sore throat. No nausea, vomiting, abdominal pain, or diarrhea. No dysuria, urgency, frequency, or flank pain. No ill
contacts. Denies tick/insect exposure. Per daughter patient noncompliant with leg elevation. Patient does wear compression but not for the past few days. She developed new blisters on bilateral lower extremity. In ED, patient was hypothermic in
the mid 80s. She was hypotensive requiring low-dose Levophed. Chest x-ray unremarkable. UA negative. She was started on empiric vancomycin and cefepime. Today patient reports her appetite has improved and she is looking forward to breakfast.
Her daughter her mental status change is the same. She has been having occasional hallucinations.
Past History
Additional Past Medical History:
P A-fib
HTN
Class III obesity
Rheumatoid arthritis
Hypothyroidism
Hypertrophic cardiomyopathy
Venous insufficiency
LE lymphedema
Additional Past Surgical History:
ICD placement
Cholecystectomy
Hysterectomy
Bilateral knee replacement
Carpal tunnel release surgery
Sinus surgery
Allergy History:
codeine Allergy (Verified 11/20/24 13:20)
nausea/vomiting
celecoxib Adverse Reaction (Verified 11/20/24 13:20)
stomach pains
Medications Reviewed: Yes
Current Antibiotics:
Vancomycin
Cefepime
Social History
Tobacco: Former Smoker
Alcohol: None
Drug: None
Employment: Retired
Family History
Family History: Not Pertinent
Review of Systems
Review of Systems
General: Change in Appetite; Negative Fever or Chills
HEENT: Negative Sinus Problems, Headache or Pharyngitis
Cardiovascular: Dyspnea; Negative Chest Pain
Respiratory: Negative Cough or Sputum Production
Gasteroenterology: Negative Nausea, Vomiting or Diarrhea
Genital / Urological: Negative Dysuria or Flank Pain
Endocrine: Weakness
Musculoskeletal: Negative Arthralgias
Skin / Hair / Nails: Negative Rash
Neurological: Negative Dizziness
All systems: All other systems were reviewed and were negative
Vital Signs
Temp Pulse Resp BP Pulse Ox
98.2 F 74 15 107/51 92
11/21/24 08:05 11/21/24 07:30 11/21/24 07:30 11/21/24 07:30 11/21/24 07:30
Physical Exam
Physical Exam
Constitutional: Acutely Ill
Head: Other (No frontal or maxillary sinus tenderness)
Eyes: No Conjunctival Hemorrhage and Sclera Anicteric
Cardiovascular: Regular Rate, S1/S2 and Other (LCW ICD site without erythema/induration)
Pulmonary: Clear
Gastrointestinal: Soft, Non Tender, Non Distended and Normal Bowel Sounds
Genito-Urinary: Negative CVA Tenderness
Extremities: Edema (BLE lymphedema) and Other (no warmth); Negative Erythema
Wound: Other (Right calf wound mild bleeding; Left LE small ruptured blister with serous drainage)
Neurological: Awake and Alert
Lab / Diagnostic Study Results
11/21/24 04:20
11/21/24 06:00
Abs Immat Gran (auto) 0.0 10^3/uL (0-0.05) 11/20/24 13:32
Absolute Neuts (auto) 3.5 10^3/uL (1.4-6.5) 11/20/24 13:32
Absolute Lymphs (auto) 0.7 10^3/uL (1.2-3.4) L 11/20/24 13:32
Absolute Monos (auto) 0.3 10^3/uL (0.1-0.6) 11/20/24 13:32
Absolute Basos (auto) 0.0 10^3/uL (0-0.2) 11/20/24 13:32
Immature Gran % 0.4 % (0-0.5) 11/20/24 13:32
Neutrophils % 76.8 % (42.2-75.2) H 11/20/24 13:32
Lymphocytes % 15.3 % (20.5-51.1) L 11/20/24 13:32
Monocytes % 6.6 % (1.7-9.3) 11/20/24 13:32
Eosinophils % 0.7 % (0-6) 11/20/24 13:32
Basophils % 0.2 % (0-2) 11/20/24 13:32
PT 17.0 Sec (11.4-14.6) H 11/20/24 22:28
INR 1.35 11/20/24 22:28
Lactic Acid Cancelled 11/21/24 08:59
Ur Squamous Epith Cells 6-10 /LPF (Few) 11/20/24 20:10
Microbiology Results
Micro:
11/20/24 22:28 Influenza Types A & B (ALVIN) - Final
Nasal Swab Negative for Influenza A & B, NAAT
Negative results must be combined with clinical observations
and patient history.
Nucleic Acid Amplification test (NAAT)performed on the
[employer] platform.
11/20/24 22:28 MRSA Screen - Pending
Nose
11/20/24 19:27 Blood Culture - Pending
Blood/Venous
11/20/24 13:32 Blood Culture - Pending
Blood/Venous
11/20/24 CXR: No acute cardiopulmonary process.
Assessment / Plan
# Hypothermia
# Hypotension
# 1 month h/o failure to thrive
# Chronic BLE lymphedema, new wounds do not look infected.
- Unclear source of hypothermia an hypotension.
ID work-up neg to date.
- Blood cx's pending.
- Can continue empiric Vanco and cefepime pending blood cx data
- Follow temps, BP
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
P A-fib
HTN
Class III obesity
Rheumatoid arthritis on MTX
Hypothyroidism
Hypertrophic cardiomyopathy
Venous insufficiency
LE lymphedema
ICD placement
Cholecystectomy
Hysterectomy
Bilateral knee replacement
Carpal tunnel release surgery
Sinus surgery
--- NOTE | 2024-11-21 11:15 | CON.INTV ---
Consultation
Consultation Request
Date/Time Consultation Requested: 21:00 11/21/24
Date/Time Consultation Performed: 7:00 11/21/24
Medical History
-
History of Present Illness:
79yoF PMH HOCM s/p pacemaker/ICD placement, spinal stenosis, presenting with subacute worsening of failure to thrive over the last 8-10 months.
Pt began having visual hallucinations in March of this past year when work up was negative. Inpt neuro at that time diagnosed with probable Parkinsons and recommended outpt follow up. Pt has seen PCP in the last month for reduced appetite,
increasing confusion, and continued hallucinations. Pt has demonstrated dehydration with hypotension on outpt visits, so metoprolol and lasix have been cautiously reduced in setting of HOCM. Daughter reports drooling and choking-like cough that have
progressed with increased inability to swallow pills. Denies snoring. Daughter denies memory problems, just general confusion. [facility]SE outpt was negative for abnormalities.
Past Medical History
Past Medical History: HTN, Hypothyroidism and Other (HOCM s/p pacemaker/ICD placement)
Allergies / Home Medications
Allergies
Allergy/AdvReac Type Severity Reaction Status Date / Time
codeine Allergy nausea/vomi Verified 11/20/24 13:20
ting
celecoxib AdvReac stomach Verified 11/20/24 13:20
pains
Home Medications
�Medication �Instructions �Recorded �Confirmed �Last Taken �Type
apixaban 5 mg tablet (Eliquis) 5 mg PO BID #60 tabs 05/18/17 11/21/24 11/17/24 Rx
cyanocobalamin (vitamin B-12) 1,000 mcg PO DAILY Supplement 02/19/18 11/21/24 11/17/24 History
1,000 mcg tablet
magnesium oxide 500 mg PO DAILY ##30 02/21/18 11/21/24 11/17/24 Rx
amiodarone 200 mg tablet (Pacerone) 200 mg PO DAILY Arrhythmia 12/23/18 11/21/24 11/17/24 History
levothyroxine 137 mcg tablet 137 mcg PO DAILY Thyroid 05/03/24 11/21/24 11/17/24 History
(Levoxyl)
metoprolol succinate 50 mg 75 mg PO BID Blood Pressure 05/03/24 11/21/24 11/17/24 History
tablet,extended release 24 hr
calcium 600 mg (as carbonate)-vit 1 tab PO BID 11/21/24 11/21/24 11/17/24 History
D3 20 mcg (800 unit) chewable
tablet (Caltrate plus D)
furosemide 20 mg tablet 20 mg PO DAILY 11/21/24 11/21/24 11/17/24 History
lisinopril 10 mg tablet 10 mg PO DAILY 11/21/24 11/21/24 11/17/24 History
jbfiawtesort-toaneoay-hokryv tablet 1 tab PO DAILY 11/21/24 11/21/24 11/17/24 History
Review of Systems
Vitals / Labs / Diagnostic Testing
Vital Signs
Temp Pulse Resp BP Pulse Ox
98.2 F 72 17 103/55 95
11/21/24 08:05 11/21/24 09:34 11/21/24 09:34 11/21/24 09:34 11/21/24 09:34
Lab Data
11/21/24 04:20
11/21/24 06:00
Laboratory Results
11/20/24
22:28
PT 17.0 H
INR 1.35
APTT 49.3 H
Microbiology
11/20/24 22:28 Nasal Swab Influenza Types A & B (ALVIN) - Final
Negative for Influenza A & B, NAAT
Negative results must be combined with clinical observations
and patient history.
Nucleic Acid Amplification test (NAAT)performed on the
[employer] platform.
Diagnostic Testing:
Physical Exam
-
HEENT: Normocephalic and Moist Mucous Membranes (drooling)
Cardiovascular: S1/S2, Regular Rhythm and Peripheral Edema
Respiratory: Rhonchi, Non-Labored Respirations and Other (aspiration cough on secretions)
GI: Soft and Non Tender
Neurology: AO x 3 and No Motor Deficits (reduced ambulation at baseline secondary to severe LE lymphedema)
Skin: Warm, Dry, Good Color and Other (scabs on LE secondary to edema)
General: Comfortable, Poor Appetite and Other
Exam:
Pt is lying comfortably in bed resting with intermittent drool and cough. Denies tenderness to palpation
Assessment
-
79yoF PMH HOCM s/p pacemaker/ICD placement, spinal stenosis, presenting with subacute worsening of failure to thrive over the last 8-10 months, confusion, hallucinations.
Afebrile. Respiratory and BC negative to date. UA not suggestive of infxn. VBG WNL. Head CT on prior w/u negative. TSH, cortisol, electrolytes WNL. Pt is drooling/aspirating while in the room with increasing confusion concerning for
neurodegenerative process. Neurologist in April suggested likely PD and recommended outpt f/u. This presentation seems like amalgamation of worsening neurodegenerative process, likely PD with autonomic instability deregulating BP and temperature,
dysphagia, and hallucinations resulting in poor PO intake and failure to thrive.
#Failure to thrive
- Inability to take PO. Drooling and concern for aspiration
- Speech evaluation
#Hypothermia
- Pt rewarmed with bear hugger. Appropriate temperature now.
#Hypotension
- Wean pressors as tolerated
- Pt arrived dehydrated with reduced PO intake s/p 3L. Encourage PO intake, stopped IVF
- Hold home HTN medication
#Possible Parkinsons Disease
- Suggestive of parkinsonian symptoms: dysphagia, autonomic dysregulation, visual hallucinations
- Follow up outpt
#Chronic venous stasis ulcers
- ID does not report concern
- Continue abx until BC negative. Hx bacteremia secondary to wounds
DVT prophylaxis: nicole remyqukandy
Diet: Speech eval.
--- NOTE | 2024-11-21 11:19 | PHA.VAN.FU ---
Vancomycin Assessment / Plan
- Assessment
Renal Function: SCR Decreasing (UOP ~0.3-0.35mL/kg, Scr 1.4-->1.2)
WBC's are: WNL
In the past 24 hrs, patient has been: Hypothermic
Concomitant Antimicrobials: Cefepime
- Assessment - Therapeutic Drug Monitoring
Random Level: 17.6 - drawn ~8 hr after Vanc 2000mg loading dose
- Dosing Plan
Dosing by Level: Re-dose today (Vancomycin 1250mg x 1)
- Monitoring Plan
Random Level: 11/22 0600
- Follow Up
Pharmacy will continue to follow.
Vancomycin Follow UP
- -
Patient Age: 79
Patient Sex: Female
Vancomycin Day #: 2
Indication: Other
Requesting Provider: Dr. Velazquez
Pertinent Antimicrobial Allergies:
No pertinent antibiotic allergies
Height / Weight:
Height 5 ft 6 in
Actual Weight 114.3 kg
Pertinent Past Medical History: BMI ~41
- Vital Signs / Lab Results
Temp Pulse Resp BP Pulse Ox
98.2 F 72 17 103/55 95
11/21/24 08:05 11/21/24 09:34 11/21/24 09:34 11/21/24 09:34 11/21/24 09:34
Lab Results - Hematology
11/20/24 11/21/24
13:32 04:20
WBC 4.6 L 4.9
Lab Results - Chemistry
11/20/24 11/21/24 11/21/24
13:32 04:20 06:00
BUN 41 H 34 H Cancelled
Creatinine 1.4 H 1.2 H Cancelled
Estimated Creat Clear 48 Cancelled
Albumin 3.3 L
11/20/24 11/20/24 11/20/24
13:32 17:30 20:59
Lactic Acid 0.8 Cancelled Cancelled
11/21/24 11/21/24 11/21/24
00:59 04:59 08:59
Lactic Acid Cancelled Cancelled Cancelled
Lab Results - Urine
11/20/24
20:10
Urine Nitrite (Reflex) Negative
Leukocyte Esterase Rfl Negative
Ur Squamous Epith Cells 6-10
Microbiology Results
11/20/24 22:28 Influenza Types A & B (ALVIN) - Final
Nasal Swab Negative for Influenza A & B, NAAT
Negative results must be combined with clinical observations
and patient history.
Nucleic Acid Amplification test (NAAT)performed on the
[employer] platform.
Therapeutic Drug Monitoring
Random Vancomycin 17.6 ug/ml 11/21/24 04:21
[2024-11-21] MEDS: LIDOCAINE 4% PATCH 2 PATCH TOPICAL (11:23)
--- NOTE | 2024-11-21 11:40 | PTCARENOTE ---
Systems reviewed. Pt with scattered fine exp wheeze. New iv site placed as charted. Pt remains lethargic.
[2024-11-21] MEDS: VANCOCIN 275 MG IV (11:49)
--- NOTE | 2024-11-21 12:37 | WOUNDNOTE ---
BILATERAL LOWER EXTREMITIES
--- NOTE | 2024-11-21 12:38 | WOUNDNOTE ---
SACRUM/COCCYX/BUTTOCKS
--- NOTE | 2024-11-21 12:38 | WOUNDNOTE ---
RIGHT POSTERIOR LOWER LEG
--- NOTE | 2024-11-21 12:39 | WOUNDNOTE ---
BILATERAL POSTERIOR LOWER LEGS/HEELS
--- NOTE | 2024-11-21 12:40 | WOUNDNOTE ---
[facility] RN note: Patient admitted with Acute hypotension, hypothermia. Patient lives at home with daughter.
See H&P for complete history.
PMH: CM, lymphedema, ICD, a fib (Eliquis), HTN, obesity, RA, venous leg ulcers.
Wound Location and type/assessment: Patient known to service, last seen 05/04/24. Now admitted with: RLE posterior blood blister, moderate serous drainage. L posterior lower leg with shallow venous ulcer, scant drainage. +Hemosiderosis, +Palpable
pedal pulses. Heels are blanchable red, legs with very dry skin. L 3rd toe intact, not a pressure ulcer. Sacral/coccyx blanchable red, MASD. Ashwini/thigh/groin MASD. Abdominal and breast folds MASD. Patient wears knee high compression stockings
(zipper type). Daughter at bedside confirmed she was doing own wound care and wearing compression until about a month ago, recent decline in health.
Appetite: Poor.
Pressure redistribution devices in place: Centrella Max air bed in use. Pillows under calves. Foams applied to heels.
Plan: R and L LE dressings changed. Knee high Josue wraps applied. Applied fungal powder then skin prep and sacral silicone foam to sacral buttocks area. Fungal powder applied to groin skin folds. Will order mineral oil for dry skin on legs to start
tomorrow. Repositioned patient to R semi side lying position. Elevated legs if sitting.
Will confirm orders with hospitalist and updated MAGDA Willson. Care plan to be updated and will follow as needed.
Note to case management requested for discharge: VN.
Patient to follow up at wound care center upon discharge.
[2024-11-21] MEDS: LEVOPHED 250 IV (15:08)
[2024-11-21] MEDS: THIAMINE INJECTION 255 MG IV ×2 (15:18→23:43)
[2024-11-21 15:19] LABS: Vitamin D, 25-OH*** 51.2 ng/mL (30-80)
--- NOTE | 2024-11-21 15:27 | PTOTSP ---
Dysphagia Evaluation:
At the bedside, pt demonstrated s/s of aspiration across all consistencies trialed and presents with signs concerning for oral/pharyngeal dysphagia. Pt presents with risk factors for dysphagia (i.e., acute fatigue and lethargy, possible
neurodegenerative condition) and risk factors for aspiration complications (i.e., cognitive changes, dependence for oral care, decreased mobility).
Recommendations:
1. NPO
2. Medications crushed in puree
3. ARHP: Single sips sparingly will full assistance/supervision. Oral care competed before.
4. Instrumental swallow study to objectively determine aspiration occurance, trial compensatory strategies, and modify appropriate diet level.
5. F/U w/ ST to trial advancements in diet after instrumental testng, cognitive-linguistic evaluation if appropriate pending neuro testing.
--- NOTE | 2024-11-21 15:30 | PTCARENOTE ---
Noticed intermittent tremor of tongue and L hand. Remains lethargic, difficulty keeping eyes open t/o shift. Speech slightly garbled at times. Maintained on levo as charted. Son at bedside.
--- NOTE | 2024-11-21 15:45 | CM ---
Initial assessment completed with daughter. Patient in bed sleeping. Daughter lives with patient in a 2 story home plus basement with B/B on 2nd and 1/2 bath on 1st, 2 steps to enter. For the past month patient has been sleeping on 1st floor due
to weakness in going up stairs. [employer] patient ambulated with a rollator. She also has a stair walker, RW, w/ch, SC and shower grab bars. She has a pacer/ICD. Does not drive. No in home services. Does have HC-POA. No VA benefits. No psychiatric
hospitalizations. PCP is Dr. Jp Mccabe. Pharmacy is [facility] [phone] in [place]. Discharge POC: TBD. Anticipate SNF, possibly LTC. 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
[2024-11-21 15:52] LABS: Vitamin B12 908 pg/ml (239-931)
--- NOTE | 2024-11-21 18:26 | W.PN.HOSP.TC ---
Today's Communication/Plan
-
wean levophed
when stable check cth and ct a/p
cont abx
Assessment / Plan
Assessment / Plan
79F with hypertrophic cardiomyopathy, ventricular tachycardia status post ICD, paroxysmal atrial fibrillation, hypertension, obesity, rheumatoid arthritis and hypothyroidism, p/w lethargy. She was found to be hypothermic and hypotensive.
Hypothymia
Shock
for unexplained etiology suspect hormonal but cannot identify the source and cannot rule out sepsis at this time
-Random cortisol wnl
-Blood culture Pending
-Urine culture pending
-Cefepime/Vanc (possible skin source but unlikely)
-CT a/p with iv contrast when stable
hypotehrmia has improved
continue levophed and wean as able
- hold furosemide and lisinopril
- pressors to maintain map > 65
- if renal function stable, consider CT a/p in am
Metabolic encephalopathy
failure to thrive
suspect due to infection as treated above vs neurodegenerative disease
when stable, will check CTH
cont thiamine as per CC team
AFIB
Rate controlled and intermittently jesse
- continue eliquis 5 bid
- continue amio 200 daily
- hold metoprolol
Hypothyroidism
- TSH 2.4
- continue oral levothyroxin
DVT PPX - on eliquis
Code status - Full Code
Anticipated Discharge: > 48 hours
Subjective/Interval History
-
Date of Service: November 21, 2024
Patient seems more out of it according to daughter today
Objective Data
-
Labs:
Laboratory Results
11/21/24 11/21/24
04:20 06:00
Sodium 143 Cancelled
Potassium 4.5 Cancelled
Chloride 117 H Cancelled
Carbon Dioxide 22 Cancelled
BUN 34 H Cancelled
Creatinine 1.2 H Cancelled
Glucose 66 L Cancelled
Calcium 8.6 Cancelled
Vital Signs:
Vital Signs
Temp Pulse Resp BP Pulse Ox
98.5 F 67 16 98/49 93
11/21/24 16:26 11/21/24 18:00 11/21/24 18:00 11/21/24 18:00 11/21/24 18:00
I&O
11/20/24 11/21/24 11/22/24
06:59 06:59 06:59
Intake Total 870.0 / 960.0 984.1 / 984.1
Output Total 445 / 485 375 / 375
Balance 425.0 / 475.0 609.1 / 609.1
Review of Systems
-
All other systems: Reviewed and negative
Physical Exam
-
General: Appears Chronically Ill
HEENT: Anicteric and PERRLA
Respiratory: Clear to Auscultation; Negative Wheezes, Rales or Crackles
Cardiac: Regular Rhythm; Negative Murmur
GI: Soft, Nontender, Nondistended and Normal Bowel Sounds
Musculoskeletal: Edema, Right Lower Extrem and Edema, Left Lower Extrem
Skin: Warm, Dry, Rash and Ulcers
Neuro: Awake; Negative Oriented
Psych: Calm
Data Reviewed
-
Diagnostic Radiology: Report Reviewed by me
Labs: Labs Reviewed by me
[2024-11-21] MEDS: REMOVE LIDOCAINE PATCH 2 PATCH REMOVE (19:55)
--- NOTE | 2024-11-21 20:00 | PTCARENOTE ---
Rec'd pt resting in bed, oriented to person, disoriented to place/ time, slow , garbled speech, follows commands, 1' AV block w/ BBB, Vpaced, Lev gtt at 2 nory- to titrate Keeping MAP > 65, weak distal pulses, + Edema, anyi wraps removed for LE,skin
warm/dry, RA, lungs decr throughout,sat 95, resp shallow, orthopneic, hypo bowel sounds, no bm, abd obese, soft, NPO except for meds crushed in applesauce, cornell draining yellow urine, bed alarm on
[2024-11-22] VITALS (44 sets, daily range): BP systolic 89–139; BP diastolic 50–82; PULSE 74; O2SAT 94; BMI 41.1
--- NOTE | 2024-11-22 00:30 | PTCARENOTE ---
sys reviewed, oriented to person/ place , more awake, sys reviewed, changes noted, CHG bath done, liens changed, levo off
--- NOTE | 2024-11-22 02:31 | DOWNTIME ---
There was a [employer] Client Knife Cutter Downtime on 11/22/2024 from 0100 to 11/22/2024 at 0215. Downtime documentation of patient's care, including medication administrations, has been reconciled in the electronic record per guidelines. Refer to the
patient's paper chart under the miscellaneous tab to see printed paper medication records and downtime forms.
--- NOTE | 2024-11-22 04:09 | PTCARENOTE ---
sys reviewed, changes noted, oriented to self only
[2024-11-22 04:57] LABS: Hematocrit 33.1 % (37.0-47.0); Hemoglobin 10.8 g/dL (12.0-16.0); Mean Corp Hgb Conc. 32.6 g/dL (33.0-37.0); Mean Corpuscular Volume 106.4 fL (81.0-99.0); Nucleated Red Blood Cells % 0 %; Platelet Count 99 10^3/uL (130-400); Red Cell Dist. Width 17.2 % (11.5-14.5)
[2024-11-22 05:13] LABS: ALT (SGPT) 24 U/L (0-35); AST (SGOT) 26 U/L (14-36); Albumin 2.3 g/dl (3.5-5.0); Alkaline Phosphatase 81 U/L (38-126); Blood Urea Nitrogen 27 mg/dl (7-17); Calcium 8.3 mg/dl (8.4-10.2); Carbon Dioxide 23 mmol/L (22-30); Chloride 118 mmol/L (98-107); Estimated Creatinine Clearance 41 ml/min; Glucose 71 mg/dl (70-99); Potassium 4.3 mmol/L (3.5-5.1); Sodium 143 mmol/L (135-145); Total Protein 4.9 g/dl (6.3-8.2); eGFR 38.03
[2024-11-22] MEDS: SYNTHROID 137 MCG PO (05:20)
--- NOTE | 2024-11-22 08:03 | W.PN.INTV ---
Today's Communication / Plan
Recommendations
Plan reviewed with attending
Continue thiamine and abx with improved mentation today.
Pending video swallow
Assessment
-
79yoF PMH HOCM s/p pacemaker/ICD placement, spinal stenosis, presenting with subacute worsening of failure to thrive over the last 8-10 months, confusion, hallucinations.
Afebrile. Respiratory and BC negative to date. UA not suggestive of infxn. MCV 106.4. VBG WNL. Head CT on prior admission w/u negative. TSH, cortisol, electrolytes WNL. BC grew staph epidermidis- concern for contamination. Pt is drooling/aspirating
while in the room concerning for neurodegenerative process. Neurologist in April suggested likely PD and recommended outpt f/u. This presentation seems like amalgamation of worsening neurodegenerative process, likely PD with autonomic instability
deregulating BP and temperature, dysphagia, and hallucinations resulting in poor PO intake and failure to thrive. Pt is more awake and conversant this morning asking appropriate questions about her care.
Daughter brought in living will today stating DNR- changed code status. Brought down for video swallow today pending results.
#Failure to thrive
- Inability to take PO. Drooling and concern for aspiration.
- Speech evaluation determined oropharyngeal dysphagia. NPO other than meds in puree. Pending video swallow results.
- B12, vit D, TSH WNL
- Empirically treating with high dose thiamine. Improved mentation today.
#Hypothermia
- Pt rewarmed with bear hugger yesterday. Appropriate temperature now.
#Hypotension
- Off pressors
- Pt arrived dehydrated with reduced PO intake s/p 3L. Off IVF
- Hold home HTN medication
- Continues on broad spectrum abx. NGTD except staph epi. Redraw cultures.
#Possible Parkinsons Disease
- Suggestive of parkinsonian symptoms: dysphagia, autonomic dysregulation, visual hallucinations without overt cogwheel rigidity or tremors
- Follow up outpt
#Chronic venous stasis ulcers
- Continue abx until BC negative. Hx bacteremia secondary to wounds
#Macrocytic anemia
- MCV 106.4 depsite B12 WNL
- Add on order to test folate
DVT prophylaxis: home eliquis switched to
Diet: NPO
Disposition: Downgrade to telemetry
Code status: DNR
Subjective Dataa
Subjective Data
Date of Service:
Date of Service: November 22, 2024
Subjective:
Pt is a lot more awake this morning reporting feeling well. Denies SOB, pain, lightheadedness. She is confused as to why we are concerned about her mental status.
Objective Data
Data Reviewed
Vital Signs / I&O / Oxygen:
Vital Signs
Temp Pulse Resp BP Pulse Ox
97.5 F 63 16 93/62 94
11/22/24 07:34 11/22/24 06:00 11/22/24 06:00 11/22/24 06:00 11/22/24 06:00
Intake and Output
11/21/24 11/22/24 11/23/24
06:59 06:59 06:59
Intake Total 870.0 / 960.0 1280.4 / 1280.4
Output Total 445 / 485 840 / 840
Balance 425.0 / 475.0 440.4 / 440.4
SaO2 94
Physical Exam
General: Comfortable
HEENT: Normocephalic, Anicteric and Moist Mucous Membranes
Cardiovascular: S1-S2, Regular Rhythm and Peripheral Edema (baseline, venous stasis sores)
Respiratory: Clear and Non-Labored Respirations
GI: Non Distended
Neurology: AO x 3 (appropriate conversation, less somnolent than yesterday, pt apologized for saying merry myla since the TV show she was watching was about myla, but this did not happen) and No Motor Deficits
Skin: Warm, Dry and Other (venous stasis sores on LE)
Labs/Micro/Reports
Lab Data
11/22/24 04:34
11/22/24 04:34
Microbiology
11/20/24 19:27 Blood/Venous Blood Culture - Preliminary
Positive culture in progress
11/20/24 19:27 Blood/Venous Gram Stain - Preliminary
11/20/24 13:32 Blood/Venous Blood Culture - Preliminary
No Growth in 24 hours- Final report to follow
11/20/24 22:28 Nasal Swab Influenza Types A & B (ALVIN) - Final
Negative for Influenza A & B, NAAT
Negative results must be combined with clinical observations
and patient history.
Nucleic Acid Amplification test (NAAT)performed on the
[employer] platform.
--- NOTE | 2024-11-22 08:10 | PHA.VAN.FU ---
Vancomycin Assessment / Plan
- Assessment
Renal Function: SCR Increasing
WBC's are: Trending Down
In the past 24 hrs, patient has been: Hypothermic
Concomitant Antimicrobials: Cefepime
- Assessment - Therapeutic Drug Monitoring
Random Level: 18.8 ~16.5 hours after last dose administered
- Dosing Plan
Dosing by Level: Hold off on dosing today
- Monitoring Plan
Random Level: 11/23 at 0600
- Follow Up
Pharmacy will continue to follow.
Vancomycin Follow UP
- -
Patient Age: 79
Patient Sex: Female
Vancomycin Day #: 3
Indication: Other
Requesting Provider: Dr. Velazquez
Pertinent Antimicrobial Allergies:
No pertinent antibiotic allergies
Height / Weight:
Height 5 ft 6 in
Actual Weight 115.4 kg
Pertinent Past Medical History: BMI ~41
- Vital Signs / Lab Results
Temp Pulse Resp BP Pulse Ox
97.5 F 63 16 93/62 94
11/22/24 07:34 11/22/24 06:00 11/22/24 06:00 11/22/24 06:00 11/22/24 06:00
Lab Results - Hematology
11/20/24 11/21/24 11/22/24
13:32 04:20 04:34
WBC 4.6 L 4.9 4.6 L
Lab Results - Chemistry
11/20/24 11/21/24 11/21/24
13:32 04:20 06:00
BUN 41 H 34 H Cancelled
Creatinine 1.4 H 1.2 H Cancelled
Estimated Creat Clear 48 Cancelled
Albumin 3.3 L
11/22/24
04:34
BUN 27 H
Creatinine 1.4 H
Estimated Creat Clear 41
Albumin 2.3 L
11/20/24 11/20/24 11/20/24
13:32 17:30 20:59
Lactic Acid 0.8 Cancelled Cancelled
11/21/24 11/21/24 11/21/24
00:59 04:59 08:59
Lactic Acid Cancelled Cancelled Cancelled
Microbiology Results
11/20/24 19:27 Blood Culture - Preliminary
Blood/Venous Positive culture in progress
Gram Stain - Preliminary
11/20/24 13:32 Blood Culture - Preliminary
Blood/Venous No Growth in 24 hours- Final report to follow
11/20/24 22:28 Influenza Types A & B (ALVIN) - Final
Nasal Swab Negative for Influenza A & B, NAAT
Negative results must be combined with clinical observations
and patient history.
Nucleic Acid Amplification test (NAAT)performed on the
[employer] platform.
Therapeutic Drug Monitoring
Random Vancomycin 18.8 ug/ml 11/22/24 04:34
[2024-11-22] MEDS: DESENEX/MITRAZOL/ZEASORB 1 APPLIC TOPICAL (08:30)
--- NOTE | 2024-11-22 08:30 | PTCARENOTE ---
Assumed care of pt at 0715 following shift report. Pt awake and resting quietly in bed- pt denies any c/o pain or SOB. Pt received on RA w/ Pox 98%. No running IVs. Parikh patent and draining clear yellow urine. Physical assessment completed. NPO per
order. AM Hygiene and comfort care provided. Turned/repositioned. Call jeronimo w/in pt reach and safe environment maintained.
[2024-11-22] MEDS: ELIQUIS 5 MG PO ×2 (09:25→19:25)
[2024-11-22] MEDS: HYDROPHOR 1 APPLIC TOPICAL (09:25)
[2024-11-22] MEDS: PACERONE 200 MG PO (09:25)
[2024-11-22] MEDS: STERILE WATER FOR INJECTION 10 ML IV ×2 (09:26→17:00)
[2024-11-22] MEDS: MAXIPIME 1000 MG IV ×2 (09:26→17:00)
--- NOTE | 2024-11-22 10:00 | PTCARENOTE ---
Pt transported to radiology at 0845 for ordered VSE w/ this RN in attendance- returned to room at 0915. Tolerated well. Pt's daughter here to visit. Updated on pt's present condition/plan of care.
--- NOTE | 2024-11-22 10:00 | PTOTSP ---
Speech Therapy VSE:
Patient presents with mild oral dysphagia and functional pharyngeal stage of swallowing. No confirmed penetration or aspiration across the study. No significant pharyngeal residue. Please see patient care note for full details of swallowing
physiology.
Recommend:
1. Initiate regular solids and thin liquids
2. Medications crushed vs whole in puree
3. Aspiration and reflux precautions
4. Supervision with PO intake
5. PRODUCT MARKETING SPECIALIST to follow for education regarding results of VSE and for ongoing tx at the acute care level
[2024-11-22] MEDS: LIDOCAINE 4% PATCH 2 PATCH TOPICAL (10:10)
[2024-11-22] MEDS: THIAMINE INJECTION 255 MG IV ×2 (10:10→17:00)
--- NOTE | 2024-11-22 10:25 | W.PN.ID1 ---
Date of Service
Date of Service: November 22, 2024
Today's Communication
Continue empiric Vanco and cefepime.
Assessment / Plan
# Hypothermia
# Hypotension on pressor
# Staph epidermidis bacteremia 1 of 2 sets, likely contaminant
# Thrombocytopenia
# 1 month h/o failure to thrive
# Chronic BLE lymphedema, new wounds do not look infected.
- Unclear source of hypothermia an hypotension.
ID work-up neg to date.
- Repeat Blood cx's x2
- Can continue empiric Vanco and cefepime for now.
- Follow temps, BP
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
P A-fib
HTN
Class III obesity
Rheumatoid arthritis
Hypothyroidism
Hypertrophic cardiomyopathy
Venous insufficiency
LE lymphedema
ICD placement
Cholecystectomy
Hysterectomy
Bilateral knee replacement
Carpal tunnel release surgery
Sinus surgery
Chief Complaint
-: Clinical Sepsis
Subjective / Review of Systems
Feeling a little better today.
Vital Signs / Physical Exam
Vital Signs
Vital Signs
Temp Pulse Resp BP Pulse Ox
97.5 F 66 16 129/72 94
11/22/24 07:34 11/22/24 09:25 11/22/24 06:00 11/22/24 09:25 11/22/24 06:00
Physical Exam
Constitutional: Comfortable
Eyes: No Conjunctival Hemorrhage and Sclera Anicteric
Cardiovascular: Regular Rate, S1/S2 and Other (LCW ICD no erythema/induration)
Pulmonary: Clear
Gastrointestinal: Soft, Non Tender, Non Distended and Normal Bowel Sounds
Extremities: Edema (BLE lymphedema)
Musculoskeletal: Negative Joint Swelling (bilateral knees) or Joint Effusion (bilateral knees)
Neurological: Awake and Alert
Objective Data
Lab Data
Lab Results
11/22/24 04:34
11/22/24 04:34
PT 17.0 Sec (11.4-14.6) H 11/20/24 22:28
INR 1.35 11/20/24 22:28
APTT 49.3 Sec (23.4-35.0) H 11/20/24 22:28
Estimated Creat Clear 41 ml/min 11/22/24 04:34
Lactic Acid Cancelled 11/21/24 08:59
Total Bilirubin 0.7 mg/dl (0.2-1.3) 11/22/24 04:34
AST 26 U/L (14-36) 11/22/24 04:34
ALT 24 U/L (0-35) 11/22/24 04:34
Alkaline Phosphatase 81 U/L (38-126) 11/22/24 04:34
Most recent labs reviewed.
Micro Results:
11/20/24 19:27 Blood Culture - Preliminary
Blood/Venous Staphylococcus epidermidis
Gram Stain - Preliminary
11/20/24 22:28 MRSA Screen - Final
Nose No Methicillin Resistant Staphylococcus aureus isolated.
11/20/24 13:32 Blood Culture - Preliminary
Blood/Venous No Growth in 24 hours- Final report to follow
11/20/24 22:28 Influenza Types A & B (ALVIN) - Final
Nasal Swab Negative for Influenza A & B, NAAT
Negative results must be combined with clinical observations
and patient history.
Nucleic Acid Amplification test (NAAT)performed on the
[employer] platform.
11/20/24 CXR: No acute cardiopulmonary process.
--- NOTE | 2024-11-22 14:15 | PTCARENOTE ---
Lita Hugger remains in use (see work list intervention). Pt sat up in chair position in bed to eat lunch (ate independently w/ supervision) no complications noted. Remains on RA w/ POx 96-98%. No cough. Denies need to void. No additional changes
from previous assessment findings.
--- NOTE | 2024-11-22 14:57 | CM ---
chart reviewed
Continue empiric Vanco and cefepime.
PT/OT ordered - await evals
plan: TBD, await PT/OT rec, CM to continue to follow for needs
--- NOTE | 2024-11-22 15:19 | PTCARENOTE ---
Pt's temp low. Rectal temp probe placed w/ pt's temp= 94.3F Lita Netogger placed- will monitor closely. Pt downgraded to tele level of care.
--- NOTE | 2024-11-22 15:58 | W.PN.HOSP.TC ---
Today's Communication/Plan
-
cont abx
MRI brain pending
Assessment / Plan
Assessment / Plan
79F with hypertrophic cardiomyopathy, ventricular tachycardia status post ICD, paroxysmal atrial fibrillation, hypertension, obesity, rheumatoid arthritis and hypothyroidism, p/w lethargy. She was found to be hypothermic and hypotensive.
Hypothymia - resolved
Shock - resolved
for unexplained etiology suspect hormonal but cannot identify the source and cannot rule out sepsis at this time
-Random cortisol wnl
-Blood culture 1/2 staph epidermidis on admit, repeat BCx ordered today and pending
-Urine culture ordered
-Cefepime/Vanc (possible skin source but unlikely). ID is following
-consider CT a/p with iv contrast when stable
hypothermia has improved
levophed weaned off
- hold furosemide and lisinopril
Metabolic encephalopathy
failure to thrive
suspect due to infection as treated above vs neurodegenerative disease
pt had previous CTH in 04/2024 that was unremarkable and now MRI brain is pending. CC team spoke with neurology for consult but they noted since this is a chronic issue she should follow up outpatient.
cont thiamine
AFIB
Rate controlled and intermittently jesse
- continue eliquis 5 bid
- continue amio 200 daily
- hold metoprolol due to low BP
Hypothyroidism
- TSH 2.4
- continue oral levothyroxine
DVT PPX - on eliquis
Code status - Full Code
Anticipated Discharge: > 48 hours
Subjective/Interval History
-
Date of Service: November 22, 2024
Patient denied any chest pain, difficulty breathing, abdominal pain, nausea, headache, fever. She is awake and alert and answering questions appropriately
Objective Data
-
Labs:
Laboratory Results
11/22/24
04:34
WBC 4.6 L
Hgb 10.8 L
Hct 33.1 L
Plt Count 99 L
Sodium 143
Potassium 4.3
Chloride 118 H
Carbon Dioxide 23
BUN 27 H
Creatinine 1.4 H
Glucose 71
Calcium 8.3 L
Total Bilirubin 0.7
AST 26
ALT 24
Alkaline Phosphatase 81
Vital Signs:
Vital Signs
Temp Pulse Resp BP Pulse Ox
95.7 F L 67 17 123/71 93
11/22/24 15:14 11/22/24 13:30 11/22/24 13:30 11/22/24 13:00 11/22/24 13:30
I&O
11/21/24 11/22/24 11/23/24
06:59 06:59 06:59
Intake Total 870.0 / 960.0 1280.4 / 1280.4 255 / 255
Output Total 445 / 485 840 / 840 175 / 175
Balance 425.0 / 475.0 440.4 / 440.4 80 / 80
Review of Systems
-
All other systems: Reviewed and negative
Physical Exam
-
General: No Apparent Distress
HEENT: Moist Mucous Membranes, Anicteric and PERRLA
Respiratory: Clear to Auscultation; Negative Wheezes, Rales or Crackles
Cardiac: Regular Rhythm and S1/S2; Negative Murmur
GI: Soft, Nontender, Nondistended and Normal Bowel Sounds
Musculoskeletal: Edema, Right Lower Extrem and Edema, Left Lower Extrem
Skin: Warm, Dry, Rash and Ulcers
Neuro: Awake, Alert and Oriented
Psych: Calm
Data Reviewed
-
Diagnostic Radiology: Report Reviewed by me
Labs: Labs Reviewed by me
--- NOTE | 2024-11-22 17:13 | PTCARENOTE ---
Lita Crews continues warming pt. Pt's grandson here to visit, pt more drowsy than earlier in the shift but arousable to name and able to identify and briefly converse w/ grandson. Pt's daughter states 'this is the way (pt) was yesterday'. Pt denies
any complaints when questioned. No additional changes from previous assessment findings.
[2024-11-22 17:47] LABS: Folate 12.5 ng/ml (2.76-20)
[2024-11-22] MEDS: REMOVE LIDOCAINE PATCH 2 PATCH REMOVE (20:04)
[2024-11-23] VITALS (21 sets, daily range): BP systolic 87–152; BP diastolic 58–78; BMI 41.0
[2024-11-23] MEDS: THIAMINE INJECTION 255 MG IV ×2 (00:19→08:19)
[2024-11-23] MEDS: STERILE WATER FOR INJECTION 10 ML IV ×2 (00:19→08:19)
[2024-11-23] MEDS: MAXIPIME 1000 MG IV ×2 (00:19→08:19)
[2024-11-23 05:23] LABS: Hematocrit 32.9 % (37.0-47.0); Hemoglobin 11.0 g/dL (12.0-16.0); Mean Corp Hgb Conc. 33.4 g/dL (33.0-37.0); Mean Corpuscular Volume 107.5 fL (81.0-99.0); Nucleated Red Blood Cells % 0 %; Platelet Count 105 10^3/uL (130-400); Red Cell Dist. Width 17.2 % (11.5-14.5)
[2024-11-23 05:41] LABS: Blood Urea Nitrogen 24 mg/dl (7-17); Calcium 8.9 mg/dl (8.4-10.2); Carbon Dioxide 24 mmol/L (22-30); Chloride 117 mmol/L (98-107); Estimated Creatinine Clearance 41 ml/min; Glucose 65 mg/dl (70-99); Potassium 4.2 mmol/L (3.5-5.1); Sodium 143 mmol/L (135-145); eGFR 38.03
[2024-11-23] MEDS: SYNTHROID 137 MCG PO (06:21)
[2024-11-23 07:08] LABS: Urine Character Slightly Cloudy (Clear)
[2024-11-23 07:22] LABS: Urine Squamous Cell >30 /LPF (Few)
[2024-11-23 07:23] LABS: Urine Red Blood Cell 0-2 /HPF (0-2)
[2024-11-23 07:24] LABS: Urine White Cell >100 /HPF (0-5)
--- NOTE | 2024-11-23 07:30 | PTCARENOTE ---
Received patient arousable from sleep, A&Ox2, on NC 2L, NSR w/ 1st AVB, BP WNL, GI/ incontinent, Purewick in place.
[2024-11-23 07:54] LABS: Glucose - Point of Care 68 mg/dl (70-99)
[2024-11-23] MEDS: DEXTROSE 50% SYRINGE 12.5 GRAMS IV (08:00)
[2024-11-23] MEDS: PACERONE 200 MG PO (08:19)
[2024-11-23] MEDS: LIDOCAINE 4% PATCH 2 PATCH TOPICAL (08:20)
[2024-11-23] MEDS: HYDROPHOR 1 APPLIC TOPICAL (08:21)
[2024-11-23] MEDS: ELIQUIS 5 MG PO ×2 (08:21→19:01)
[2024-11-23 08:26] LABS: Glucose - Point of Care 115 mg/dl (70-99)
--- NOTE | 2024-11-23 08:43 | W.PN.HOSP.TC ---
Today's Communication/Plan
-
cont abx
MRI brain pending
Monitor glucose
Consider CT chest
Assessment / Plan
Assessment / Plan
79F with hypertrophic cardiomyopathy, ventricular tachycardia status post ICD, paroxysmal atrial fibrillation, hypertension, obesity, rheumatoid arthritis and hypothyroidism, p/w lethargy. She was found to be hypothermic and hypotensive.
Hypothymia - resolved
Shock - resolved
for unexplained etiology suspect hormonal but cannot identify the source and cannot rule out sepsis at this time
-Random cortisol wnl
-Blood culture 03/09 staph epidermidis on admit, repeat BCx 11/22 pending. MRSA neg
-Urine culture ordered
-Cefepime/Vanc (possible skin source but unlikely). ID is following
-consider CT a/p with iv contrast if GI symptoms vs CT chest if she becomes
hypothermia has improved
levophed weaned off
- hold furosemide and lisinopril until BP elevated
Metabolic encephalopathy
failure to thrive
suspect due to infection as treated above vs neurodegenerative disease
pt had previous CTH in 04/2024 that was unremarkable and now MRI brain is pending. CC team spoke with neurology for consult but they noted since this is a chronic issue she should follow up outpatient.
cont thiamine
Nutrition consult
AFIB
Rate controlled and intermittently jesse
- continue eliquis 5 bid
- continue amio 200 daily
- hold metoprolol due to low BP
Hypothyroidism
- TSH 2.4
- continue oral levothyroxine
DVT PPX - on eliquis
Code status - Full Code
Anticipated Discharge: > 48 hours
Subjective/Interval History
-
Date of Service: November 23, 2024
Patient denies abdominal pain, chest pain, shortness of breath, dysuria, no BMs yet. Daughter at bedside. Not eating well still. Had hypoglycemic episodes.
Objective Data
-
Labs:
Laboratory Results
11/23/24
04:50
WBC 4.2 L
Hgb 11.0 L
Hct 32.9 L
Plt Count 105 L
Sodium 143
Potassium 4.2
Chloride 117 H
Carbon Dioxide 24
BUN 24 H
Creatinine 1.4 H
Glucose 65 L
Calcium 8.9
Vital Signs:
Vital Signs
Temp Pulse Resp BP Pulse Ox
97.1 F 65 17 116/61 98
11/23/24 04:30 11/23/24 08:19 11/23/24 06:00 11/23/24 08:19 11/23/24 06:00
I&O
11/22/24 11/23/24 11/24/24
06:59 06:59 06:59
Intake Total 1280.4 / 1280.4 777 / 777
Output Total 840 / 840 575 / 575
Balance 440.4 / 440.4 202 / 202
Review of Systems
-
All other systems: Reviewed and negative
Physical Exam
-
General: No Apparent Distress
HEENT: Moist Mucous Membranes, Anicteric and PERRLA
Respiratory: Clear to Auscultation; Negative Wheezes, Rales or Crackles
Cardiac: Regular Rhythm and S1/S2; Negative Murmur
GI: Soft, Nontender, Nondistended and Normal Bowel Sounds
Musculoskeletal: Edema, Right Lower Extrem and Edema, Left Lower Extrem
Skin: Warm, Dry, Rash and Ulcers
Neuro: Awake, Alert and Oriented
Psych: Calm
Data Reviewed
-
Diagnostic Radiology: Report Reviewed by me
Labs: Labs Reviewed by me, Discussed with Nurse and Discussed with Patient
[2024-11-23] MEDS: DESENEX/MITRAZOL/ZEASORB 1 APPLIC TOPICAL (09:00)
--- NOTE | 2024-11-23 09:59 | PHA.VAN.FU ---
Vancomycin Assessment / Plan
- Assessment
Renal Function: Stable (Scr 1.4-->1.4)
WBC's are: Stable
In the past 24 hrs, patient has been: Hypothermic
Concomitant Antimicrobials: Cefepime
- Assessment - Therapeutic Drug Monitoring
Calculated ke: 0.0093
Calculated half life (H): 74.5
Dose/Levels obtained:
11/20 2034 Vancomycin 2000mg
11/21 042 Random level 17.6/ 1149 Vancomycin 1250mg
11/22 0434 Random level 18.8
11/23 449 Random level 15
Calculated Ke with random levels obtained.
Patient does not follow population kinetics.
- Dosing Plan
Dosing by Level: Hold off on dosing today
- Monitoring Plan
Random Level: 11/24 0600
- Follow Up
Pharmacy will continue to follow.
Vancomycin Follow UP
- -
Patient Age: 79
Patient Sex: Female
Vancomycin Day #: 4
Indication: Other
Requesting Provider: Dr. Velazquez
Pertinent Antimicrobial Allergies:
No pertinent antibiotic allergies
Height / Weight:
Height 5 ft 6 in
Actual Weight 115.1 kg
Pertinent Past Medical History: BMI ~41
- Vital Signs / Lab Results
Temp Pulse Resp BP Pulse Ox
96.7 F L 65 17 116/61 98
11/23/24 08:00 11/23/24 08:19 11/23/24 06:00 11/23/24 08:19 11/23/24 06:00
Lab Results - Hematology
11/20/24 11/21/24 11/22/24
13:32 04:20 04:34
WBC 4.6 L 4.9 4.6 L
11/23/24
04:50
WBC 4.2 L
Lab Results - Chemistry
11/20/24 11/21/24 11/21/24
13:32 04:20 06:00
BUN 41 H 34 H Cancelled
Creatinine 1.4 H 1.2 H Cancelled
Estimated Creat Clear 48 Cancelled
Albumin 3.3 L
11/22/24 11/23/24
04:34 04:50
BUN 27 H 24 H
Creatinine 1.4 H 1.4 H
Estimated Creat Clear 41 41
Albumin 2.3 L
11/20/24 11/20/24 11/20/24
13:32 17:30 20:59
Lactic Acid 0.8 Cancelled Cancelled
11/21/24 11/21/24 11/21/24
00:59 04:59 08:59
Lactic Acid Cancelled Cancelled Cancelled
Lab Results - Urine
11/23/24
06:41
Urine Nitrite (Reflex) Negative
Leukocyte Esterase Rfl 3+ A
Ur Squamous Epith Cells >30
Microbiology Results
11/20/24 19:27 Blood Culture - Preliminary
Blood/Venous Staphylococcus epidermidis
Additional testing on request
Gram Stain - Preliminary
11/20/24 13:32 Blood Culture - Preliminary
Blood/Venous No Growth in 48 hours- Final report to follow
11/20/24 22:28 MRSA Screen - Final
Nose No Methicillin Resistant Staphylococcus aureus isolated.
Therapeutic Drug Monitoring
Random Vancomycin 15.0 ug/ml 11/23/24 04:50
[2024-11-23] MEDS: ATIVAN 0.5 MG PO (12:02)
[2024-11-23 12:11] LABS: Glucose - Point of Care 96 mg/dl (70-99)
--- NOTE | 2024-11-23 12:30 | W.PN.ID1 ---
Date of Service
Date of Service: November 23, 2024
Today's Communication
De-escalate abx's to ceftriaxone.
Assessment / Plan
# Hypothermia
# Hypotension off pressor
# Staph epidermidis bacteremia 1 of 2 sets = contaminant
# Thrombocytopenia
# 1 month h/o failure to thrive
# Chronic BLE lymphedema, new wounds do not look infected.
- Unclear source of hypothermia an hypotension.
- VSE no aspiration
- Repeat Blood cx's x2 neg
- Repeat UA >100 WBC, >30sq (likely contaminant). Ucx pending
- De-escalate Vanco and cefepime to empiric ceftriaxone.
- Follow temps
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
P A-fib
HTN
Class III obesity
Rheumatoid arthritis
Hypothyroidism
Hypertrophic cardiomyopathy
Venous insufficiency
LE lymphedema
ICD placement
Cholecystectomy
Hysterectomy
Bilateral knee replacement
Carpal tunnel release surgery
Sinus surgery
Chief Complaint
-: Clinical Sepsis
Subjective / Review of Systems
Daughter at bedside.
Per daughter, pt confusion without improvement, worse during hypothermia.
Vital Signs / Physical Exam
Vital Signs
Vital Signs
Temp Pulse Resp BP Pulse Ox
96.7 F L 65 17 116/61 98
11/23/24 08:00 11/23/24 08:19 11/23/24 06:00 11/23/24 08:19 11/23/24 06:00
Physical Exam
Constitutional: Acutely Ill and Obese
Eyes: No Conjunctival Hemorrhage and Sclera Anicteric
Cardiovascular: Regular Rate and S1/S2
Pulmonary: Clear
Gastrointestinal: Soft, Non Tender and Non Distended
Extremities: Edema (BLE lymphedema)
Musculoskeletal: Negative Joint Swelling, Joint Effusion or Spinal Tenderness
Wound: Other (right calf - hemorrhagic blister)
Neurological: Awake and Other (drowsy)
Objective Data
Lab Data
Lab Results
11/23/24 04:50
11/23/24 04:50
PT 17.0 Sec (11.4-14.6) H 11/20/24 22:28
INR 1.35 11/20/24 22:28
APTT 49.3 Sec (23.4-35.0) H 11/20/24 22:28
Estimated Creat Clear 41 ml/min 11/23/24 04:50
Lactic Acid Cancelled 11/21/24 08:59
Total Bilirubin 0.7 mg/dl (0.2-1.3) 11/22/24 04:34
AST 26 U/L (14-36) 11/22/24 04:34
ALT 24 U/L (0-35) 11/22/24 04:34
Alkaline Phosphatase 81 U/L (38-126) 11/22/24 04:34
Most recent labs reviewed.
Micro Results:
11/22/24 12:03 Blood Culture - Preliminary
Blood/Venous No Growth in 24 hours- Final report to follow
11/22/24 11:12 Blood Culture - Preliminary
Blood/Venous No Growth in 24 hours- Final report to follow
11/20/24 19:27 Blood Culture - Preliminary
Blood/Venous Staphylococcus epidermidis
Additional testing on request
Gram Stain - Preliminary
11/23/24 06:41 Urine Culture - Pending
Urine
11/20/24 13:32 Blood Culture - Preliminary
Blood/Venous No Growth in 48 hours- Final report to follow
11/20/24 22:28 MRSA Screen - Final
Nose No Methicillin Resistant Staphylococcus aureus isolated.
11/20/24 22:28 Influenza Types A & B (ALVIN) - Final
Nasal Swab Negative for Influenza A & B, NAAT
Negative results must be combined with clinical observations
and patient history.
Nucleic Acid Amplification test (NAAT)performed on the
[employer] platform.
11/20/24 CXR: No acute cardiopulmonary process.
--- NOTE | 2024-11-23 14:22 | PN.CDI ---
CDI
- -
CDI:
Physician Documentation Request
Admit Date: 11/20/24 20:32
Dear Doctor Devin,
Please review the following and provide your response in the progress notes.
Clinical Indicators:
Laboratory Tests
11/20/24 11/22/24 11/23/24
13:32 04:34 04:50
WBC 4.6 L 4.6 L 4.2 L
RBC 3.75 L 3.11 L 3.06 L
Plt Count 104 L 99 L 105 L
Based on the above, please clarify the appropriate diagnosis, if significant, that supports the above abnormalities and additional evaluation, monitoring and/or treatment rendered:
Pancytopenia
Other pancytopenia
Other(please specify)
Use of terms such as suspected, likely, concern for, or probable (associated with a specific diagnosis that is being evaluated, monitored, or treated as if it exists) are acceptable and can be coded in the inpatient setting, when documented at the
time of discharge.
Thank you,
Jacqueline Oviedo RN BSN CCDS
CDI Specialist
Please contact via tiger text
Please use your independent medical judgment in providing your response.
--- NOTE | 2024-11-23 14:28 | PN.CDI ---
CDI
- -
CDI:
Physician Documentation Request
Admit Date: 11/20/24 20:32
Dear Doctor Devin,
Please review the following and provide your response in the progress notes.
Clinical Indicators:
Laboratory Tests
11/20/24 11/22/24 11/23/24
13:32 04:34 04:50
WBC 4.6 L 4.6 L 4.2 L
RBC 3.75 L 3.11 L 3.06 L
Plt Count 104 L 99 L 105 L
Based on the above, please clarify the appropriate diagnosis, if significant, that supports the above abnormalities and additional evaluation, monitoring and/or treatment rendered:
Pancytopenia
Other pancytopenia
Abnormal lab values, clinically insignificant
Other(please specify)
Use of terms such as suspected, likely, concern for, or probable (associated with a specific diagnosis that is being evaluated, monitored, or treated as if it exists) are acceptable and can be coded in the inpatient setting, when documented at the
time of discharge.
Thank you,
Jacqueline Oviedo RN BSN CCDS
CDI Specialist
Please contact via tiger text
Please use your independent medical judgment in providing your response.
[2024-11-23] MEDS: STERILE WATER FOR INJECTION 20 ML IV (15:01)
[2024-11-23] MEDS: ROCEPHIN 2000 MG IV (15:02)
--- NOTE | 2024-11-23 16:31 | CM ---
Addendum entered by Klaudia Michael 11/24/24 10:29:
[employer] list explained and provided to daughter.
Original Note:
IV/Rocephin. Considering CT Chest. Discharge POC: Therapy recommendation for SNF. Will provide [employer] list.
[2024-11-23] MEDS: REMOVE LIDOCAINE PATCH 2 PATCH REMOVE (20:00)
[2024-11-24] VITALS (18 sets, daily range): BP systolic 91–139; BP diastolic 56–98; BMI 40.9
[2024-11-24 04:47] LABS: Hemoglobin 10.8 g/dL (12.0-16.0)
[2024-11-24 05:00] LABS: Hematocrit 33.5 % (37.0-47.0); Mean Corp Hgb Conc. 32.2 g/dL (33.0-37.0); Mean Corpuscular Volume 108.1 fL (81.0-99.0); Nucleated Red Blood Cells % 0.4 %; Platelet Count 102 10^3/uL (130-400); Red Cell Dist. Width 17.2 % (11.5-14.5)
--- NOTE | 2024-11-24 05:30 | PTCARENOTE ---
Lita Crews applied due to 94.2 rectal temp.
[2024-11-24] MEDS: SYNTHROID 137 MCG PO (05:45)
[2024-11-24 06:18] LABS: Blood Urea Nitrogen 22 mg/dl (7-17); Calcium 8.8 mg/dl (8.4-10.2); Carbon Dioxide 26 mmol/L (22-30); Chloride 118 mmol/L (98-107); Estimated Creatinine Clearance 41 ml/min; Glucose 78 mg/dl (70-99); Potassium 4.3 mmol/L (3.5-5.1); Sodium 143 mmol/L (135-145); eGFR 38.03
--- NOTE | 2024-11-24 07:30 | PTCARENOTE ---
Received patient drowsy but arousable from sleep, A&Ox2, slow speech/response, reinserted a rectal probe, continued Lita hugger for hypothermia, on NC 2L, NSR w/ 1st AVB w/ BBB, BP WNL, GI/ incontinent, Purewick in place.
[2024-11-24] MEDS: DEXTROSE 50% SYRINGE 12.5 GRAMS IV (07:52)
[2024-11-24 07:54] LABS: Glucose - Point of Care 69 mg/dl (70-99)
[2024-11-24 08:18] LABS: Glucose - Point of Care 131 mg/dl (70-99)
[2024-11-24] MEDS: DESENEX/MITRAZOL/ZEASORB 1 APPLIC TOPICAL (08:30)
[2024-11-24] MEDS: PACERONE 200 MG PO (08:33)
[2024-11-24] MEDS: LIDOCAINE 4% PATCH 2 PATCH TOPICAL (08:33)
[2024-11-24] MEDS: VITAMIN B1 100 MG PO (08:33)
[2024-11-24] MEDS: ELIQUIS 5 MG PO ×2 (08:33→20:05)
[2024-11-24] MEDS: HYDROPHOR 1 APPLIC TOPICAL (08:34)
--- NOTE | 2024-11-24 09:30 | W.PN.HOSP.TC ---
Addendum entered and electronically signed by Katherine Beltran MD 11/24/24 15:09:
For CDI: Mild thrombocytopenia, pancytopenia is ruled out
Original Note:
Today's Communication/Plan
-
cont abx
CT C/A/P
Assessment / Plan
Assessment / Plan
79F with hypertrophic cardiomyopathy, ventricular tachycardia status post ICD, paroxysmal atrial fibrillation, hypertension, obesity, rheumatoid arthritis and hypothyroidism, p/w lethargy. She was found to be hypothermic and hypotensive.
Hypothymia - intermittent
Shock - resolved
for unexplained etiology suspect hormonal but cannot identify the source and cannot rule out sepsis at this time
-Random cortisol wnl
-Blood culture 03/09 staph epidermidis on admit, repeat BCx 11/22 NGTD. MRSA neg
-Urine culture ordered
-intiially Cefepime/Vanc (possible skin source but unlikely). ID is following and descalated to ceftriaxone
pt again with hypothermia - we already ruled out uncontrolled hypothyroidism, adrenal insufficiency, sepsis. could be related to malnutrition. Already treating with thiamine. Today's glucose is improved. can also be a/w neuromuscular disease causing
some kind of autonomic dysfunction
- Given the recurrence of her hypothermia I will check CT chest abdomen and pelvis with contrast. Discussed with Dr. Parmar and Dr. Velazquez.
hypothermia has improved
levophed weaned off
- hold furosemide and lisinopril until BP elevated
Metabolic encephalopathy
failure to thrive
suspect due to infection as treated above vs neurodegenerative disease
pt had previous CTH in 04/2024 that was unremarkable and now MRI brain is performed and negative for acute abnormality. CC team spoke with neurology for consult but they noted since this is a chronic issue she should follow up outpatient.
Consider autonomic dysfunction
cont thiamine
Nutrition consult
AFIB
Rate controlled and intermittently jesse
- continue eliquis 5 bid
- continue amio 200 daily
- hold metoprolol due to low BP
Hypothyroidism
- TSH 2.4
- continue oral levothyroxine
DVT PPX - on eliquis
Code status - Full Code
Anticipated Discharge: > 48 hours
Subjective/Interval History
-
Date of Service: November 24, 2024
Patient says she is not feeling as well today as she was yesterday, she is again hypothermic to 94.5 F. Daughter is at bedside and provides additional history that patient forgot.
Objective Data
-
Labs:
Laboratory Results
11/24/24
04:34
WBC 4.8
Hgb 10.8 L
Hct 33.5 L
Plt Count 102 L
Sodium 143
Potassium 4.3
Chloride 118 H
Carbon Dioxide 26
BUN 22 H
Creatinine 1.4 H
Glucose 78
Calcium 8.8
Vital Signs:
Vital Signs
Temp Pulse Resp BP Pulse Ox
94.5 F L 60 22 121/62 100
11/24/24 07:25 11/24/24 08:33 11/24/24 05:00 11/24/24 08:33 11/24/24 05:00
I&O
11/23/24 11/24/24 11/25/24
06:59 06:59 06:59
Intake Total 777 / 777 610 / 610
Output Total 575 / 575 525 / 525
Balance 85 / 85
Review of Systems
-
All other systems: Reviewed and negative
Physical Exam
-
General: No Apparent Distress
HEENT: Moist Mucous Membranes, Anicteric and PERRLA
Respiratory: Clear to Auscultation; Negative Wheezes, Rales or Crackles
Cardiac: Regular Rhythm and S1/S2; Negative Murmur
GI: Soft, Nontender, Nondistended and Normal Bowel Sounds
Musculoskeletal: Edema, Right Lower Extrem and Edema, Left Lower Extrem
Skin: Warm, Dry, Rash and Ulcers
Neuro: Awake, Alert and Oriented
Psych: Calm
Data Reviewed
-
Diagnostic Radiology: Report Reviewed by me
MRI: Report Reviewed by me, Discussed with Physician, Discussed with Patient and Discussed with Family
Labs: Labs Reviewed by me, Discussed with Nurse, Discussed with Patient and Discussed with Family
--- NOTE | 2024-11-24 12:00 | PTCARENOTE ---
Reassessed the patient, turned off Lita Hugger at noon time. Rectal probe was NOT reading accurate, Axillary temp was 98.1 F. No other changes from previous assessments.
[2024-11-24 12:50] LABS: Glucose - Point of Care 97 mg/dl (70-99)
[2024-11-24] MEDS: ROCEPHIN 2000 MG IV (13:30)
[2024-11-24] MEDS: STERILE WATER FOR INJECTION 20 ML IV (13:30)
[2024-11-24] MEDS: SENOKOT-S 1 TABLET PO (13:30)
[2024-11-24] MEDS: OMNIPAQUE 50 ML PO (15:21)
--- NOTE | 2024-11-24 15:26 | CM ---
MRI brain-no noted abnormalities. IV/Rocephin. Ongoing diagnostics to determine cause of symptomatology. Discharge POC: SNF. Preferences chosen and referrals forwarded.
--- NOTE | 2024-11-24 16:00 | W.PN.ID1 ---
Date of Service
Date of Service: November 24, 2024
Today's Communication
If imaging unremarkable, dc empiric ceftriaxone.
Assessment / Plan
# Hypothermia, persists
# s/p Hypotension off pressor
# Staph epidermidis bacteremia 1 of 2 sets = contaminant
# Thrombocytopenia
# 1 month h/o failure to thrive
# Chronic BLE lymphedema, wounds do not look infected.
- Unclear source of hypothermia and hypotension.
- VSE no aspiration
- Repeat Blood cx's x2 neg
- Repeat UA >100 WBC, >30sq (likely contaminant). Ucx negative.
- For CT C/A/P per hospitalist.
If imaging unremarkable dc empiric ceftriaxone.
- Follow temps
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
P A-fib
HTN
Class III obesity
Rheumatoid arthritis
Hypothyroidism
Hypertrophic cardiomyopathy
Venous insufficiency
LE lymphedema
ICD placement
Cholecystectomy
Hysterectomy
Bilateral knee replacement
Carpal tunnel release surgery
Sinus surgery
Chief Complaint
-: Clinical Sepsis
Subjective / Review of Systems
Daughter at bedside.
Patient is very weak, unable to feed herself.
Pt c/o feeling hot under warming blanket.
Vital Signs / Physical Exam
Vital Signs
Vital Signs
Temp Pulse Resp BP Pulse Ox
98.3 F 76 19 114/58 94
11/24/24 15:39 11/24/24 14:00 11/24/24 14:00 11/24/24 12:00 11/24/24 14:00
Physical Exam
Constitutional: Acutely Ill and Chronically Ill
Eyes: No Conjunctival Hemorrhage and Sclera Anicteric
Cardiovascular: Regular Rate and S1/S2
Pulmonary: Clear (anterior lungs)
Gastrointestinal: Soft, Non Tender and Non Distended
Genito-Urinary: Negative CVA Tenderness
Extremities: Edema (BLE lymphedema) and Venous Insufficiency; Negative Erythema
Musculoskeletal: Negative Joint Swelling, Joint Effusion or Spinal Tenderness
Wound: Other (right calf - hemorrhagic blister)
Neurological: Other (drowsy); Negative Meningeal Signs
Objective Data
Lab Data
Lab Results
11/24/24 04:34
11/24/24 04:34
PT 17.0 Sec (11.4-14.6) H 11/20/24 22:28
INR 1.35 11/20/24 22:28
APTT 49.3 Sec (23.4-35.0) H 11/20/24 22:28
Estimated Creat Clear 41 ml/min 11/24/24 04:34
Lactic Acid Cancelled 11/21/24 08:59
Total Bilirubin 0.7 mg/dl (0.2-1.3) 11/22/24 04:34
AST 26 U/L (14-36) 11/22/24 04:34
ALT 24 U/L (0-35) 11/22/24 04:34
Alkaline Phosphatase 81 U/L (38-126) 11/22/24 04:34
Most recent labs reviewed.
Micro Results:
11/20/24 13:32 Blood Culture - Preliminary
Blood/Venous No Growth in 4 days- Final report to follow
11/22/24 12:03 Blood Culture - Preliminary
Blood/Venous No Growth in 48 hours- Final report to follow
11/22/24 11:12 Blood Culture - Preliminary
Blood/Venous No Growth in 48 hours- Final report to follow
11/23/24 06:41 Urine Culture - Final
Urine NO GROWTH
11/20/24 19:27 Blood Culture - Preliminary
Blood/Venous Staphylococcus epidermidis
Additional testing on request
Gram Stain - Preliminary
11/20/24 22:28 MRSA Screen - Final
Nose No Methicillin Resistant Staphylococcus aureus isolated.
11/20/24 22:28 Influenza Types A & B (ALVIN) - Final
Nasal Swab Negative for Influenza A & B, NAAT
Negative results must be combined with clinical observations
and patient history.
Nucleic Acid Amplification test (NAAT)performed on the
[employer] platform.
11/23/24 Brain MRI: No acute intracranial abnormality noted.
11/20/24 CXR: No acute cardiopulmonary process.
Care Review
Plan reviewed with: Physician (Dr. Beltran)
[2024-11-24 16:57] LABS: Glucose - Point of Care 72 mg/dl (70-99)
[2024-11-24] MEDS: REMOVE LIDOCAINE PATCH 2 PATCH REMOVE (20:05)
--- NOTE | 2024-11-24 20:17 | PTCARENOTE ---
Patient received in bed drowsy but arousable to verbal commands. Oriented to self and place. MAEx4. Plan of care for the shift reviewed with the patient. Patient verbalizes not knowing what is causing her to be sick. Sinus rhythm with first degree
heart block. Afebrile. + 2 edema to bilateral lower extremities. + doppler to DPs & PTs. SpO2 at 96% on 2L/o2 nc. Pt's mouth breathing. Purewick is cdi. Scheduled medication administered with orange juice. Prist at the bedside. Pt's more alert and
talking.
[2024-11-24 21:08] LABS: Glucose - Point of Care 118 mg/dl (70-99)
[2024-11-25] VITALS (16 sets, daily range): BP systolic 97–159; BP diastolic 51–102; PULSE 91; O2SAT 93; BMI 40.7
[2024-11-25 03:41] LABS: Blood Urea Nitrogen 19 mg/dl (7-17); Calcium 9.1 mg/dl (8.4-10.2); Carbon Dioxide 27 mmol/L (22-30); Chloride 115 mmol/L (98-107); Estimated Creatinine Clearance 44 ml/min; Glucose 86 mg/dl (70-99); Potassium 4.3 mmol/L (3.5-5.1); Sodium 142 mmol/L (135-145); eGFR 41.57
[2024-11-25 03:49] LABS: Hematocrit 34.4 % (37.0-47.0); Hemoglobin 11.3 g/dL (12.0-16.0); Mean Corp Hgb Conc. 32.8 g/dL (33.0-37.0); Mean Corpuscular Volume 107.8 fL (81.0-99.0); Nucleated Red Blood Cells % 0 %; Platelet Count 116 10^3/uL (130-400); Red Cell Dist. Width 17.1 % (11.5-14.5)
--- NOTE | 2024-11-25 04:02 | PTCARENOTE ---
Patient reassessed. Remains oriented x2 and able to make her needs known. On 2L/o2 nc with SpO2 at 97. MACE on exertion. SpO2 at 91% while flat. Incontinence of urine. Pt bladder scanned for 19 mL. Pt cleansed and linens changed.
[2024-11-25] MEDS: SYNTHROID PO (06:31)
[2024-11-25] MEDS: TIGAN 200 MG IM (06:35)
--- NOTE | 2024-11-25 06:39 | PTCARENOTE ---
Patient called for assistance stating that she is vomiting . Patient's head of bed raised to the max of 64 degrees. Had 15 ml of green emesis. Tigan administered.
[2024-11-25 08:00] LABS: Glucose - Point of Care 74 mg/dl (70-99)
--- NOTE | 2024-11-25 08:20 | W.PN.ID1 ---
Date of Service
Date of Service: November 25, 2024
Today's Communication
D/C antibiotics.
Assessment / Plan
# Hypothermia, improved
# s/p Hypotension; off pressor
# Staph epidermidis bacteremia 1 of 2 sets = contaminant
# Thrombocytopenia
# 1 month h/o failure to thrive
# Chronic BLE lymphedema, wounds do not look infected.
- Unclear source of hypothermia and hypotension.
- VSE no aspiration
- Repeat Blood cx's x2 neg
- Repeat UA >100 WBC, >30sq (likely contaminant). Ucx negative.
- CT C/A/P unremarkable.
- D/C further antibiotics and observe.
- Follow temps
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
P A-fib
HTN
Class III obesity
Rheumatoid arthritis
Hypothyroidism
Hypertrophic cardiomyopathy
Venous insufficiency
LE lymphedema
ICD placement
Cholecystectomy
Hysterectomy
Bilateral knee replacement
Carpal tunnel release surgery
Sinus surgery
Chief Complaint
-: Clinical Sepsis
Subjective / Review of Systems
Review of Systems: No Fever
Vital Signs / Physical Exam
Vital Signs
Vital Signs
Temp Pulse Resp BP Pulse Ox
98.1 F 66 16 146/78 93
11/25/24 07:38 11/25/24 06:00 11/25/24 06:00 11/25/24 06:00 11/25/24 07:54
Physical Exam
Constitutional: Chronically Ill, Non-toxic and Obese
Cardiovascular: S1/S2; Negative S3/S4
Pulmonary: Non Labored; Negative Rhonchi
Gastrointestinal: Soft, Non Distended and Normal Bowel Sounds
Extremities: Edema and Venous Insufficiency (Bilateral lower extremities with tissue texture changes.); Negative Erythema
Psychological: Calm
Objective Data
Lab Data
Lab Results
11/25/24 03:15
11/25/24 03:15
PT 17.0 Sec (11.4-14.6) H 11/20/24 22:28
INR 1.35 11/20/24 22:28
APTT 49.3 Sec (23.4-35.0) H 11/20/24 22:28
Estimated Creat Clear 44 ml/min 11/25/24 03:15
Lactic Acid Cancelled 11/21/24 08:59
Total Bilirubin 0.7 mg/dl (0.2-1.3) 11/22/24 04:34
AST 26 U/L (14-36) 11/22/24 04:34
ALT 24 U/L (0-35) 11/22/24 04:34
Alkaline Phosphatase 81 U/L (38-126) 11/22/24 04:34
Most recent labs reviewed.
Micro Results:
11/20/24 13:32 Blood Culture - Preliminary
Blood/Venous No Growth in 4 days- Final report to follow
11/22/24 12:03 Blood Culture - Preliminary
Blood/Venous No Growth in 48 hours- Final report to follow
11/22/24 11:12 Blood Culture - Preliminary
Blood/Venous No Growth in 48 hours- Final report to follow
11/23/24 06:41 Urine Culture - Final
Urine NO GROWTH
11/20/24 19:27 Blood Culture - Preliminary
Blood/Venous Staphylococcus epidermidis
Additional testing on request
Gram Stain - Preliminary
11/20/24 22:28 MRSA Screen - Final
Nose No Methicillin Resistant Staphylococcus aureus isolated.
11/20/24 22:28 Influenza Types A & B (ALVIN) - Final
Nasal Swab Negative for Influenza A & B, NAAT
Negative results must be combined with clinical observations
and patient history.
Nucleic Acid Amplification test (NAAT)performed on the
[employer] platform.
Imaging:
11/24/2024 CT chest/abdomen/pelvis with IV contrast: small left and small to moderate right pleural effusion with associated compressive atelectasis. Small volume perihepatic ascites. No other significant findings noted. Please see full dictation
for additional detail.
11/23/24 Brain MRI: No acute intracranial abnormality noted.
11/20/24 CXR: No acute cardiopulmonary process.
CT Scan: Image Reviewed
[2024-11-25] MEDS: HYDROPHOR 1 APPLIC TOPICAL (09:22)
[2024-11-25] MEDS: VITAMIN B1 100 MG PO (09:28)
[2024-11-25] MEDS: LIDOCAINE 4% PATCH 2 PATCH TOPICAL (09:28)
[2024-11-25] MEDS: ELIQUIS 5 MG PO ×2 (09:28→20:01)
[2024-11-25] MEDS: PACERONE 200 MG PO (09:28)
--- NOTE | 2024-11-25 10:41 | W.PN.HOSP.TC ---
Today's Communication/Plan
-
d/c abx per ID
check dopplers UE and 1x IV lasix
Assessment / Plan
Assessment / Plan
79F with hypertrophic cardiomyopathy, ventricular tachycardia status post ICD, paroxysmal atrial fibrillation, hypertension, obesity, rheumatoid arthritis and hypothyroidism, p/w lethargy. She was found to be hypothermic and hypotensive.
Hypothymia - intermittent
Shock - resolved
for unexplained etiology suspect hormonal but cannot identify the source and cannot rule out sepsis at this time
-Random cortisol wnl
-Blood culture 03/09 staph epidermidis on admit, repeat BCx 11/22 NGTD. MRSA neg
-Urine culture NGTD
pt again with hypothermia - we already ruled out uncontrolled hypothyroidism, adrenal insufficiency, sepsis. could be related to malnutrition. Already treating with thiamine. Today's glucose is improved. can also be a/w neuromuscular disease causing
some kind of autonomic dysfunction
- Given the recurrence of her hypothermia checked CT chest abdomen and pelvis with contrast which did not show any acute abnormalities other than mild pleural effusions which I attribute to the fluid we gave her when she came in.
-initially Cefepime/Vanc (possible skin source but unlikely). ID is following and descalated to ceftriaxone--> now have discontinued given no source and no positive cultures
hypothermia has improved
levophed weaned off
- hold furosemide and lisinopril until BP elevated
Metabolic encephalopathy
failure to thrive
suspect due to infection as treated above vs neurodegenerative disease
pt had previous CTH in 04/2024 that was unremarkable and now MRI brain is performed and negative for acute abnormality. CC team spoke with neurology for consult but they noted since this is a chronic issue she should follow up outpatient.
Consider autonomic dysfunction
cont thiamine
Nutrition consult
AFIB
Rate controlled and intermittently jesse
- continue eliquis 5 bid
- continue amio 200 daily
- hold metoprolol due to low BP
Hypothyroidism
- TSH 2.4
- continue oral levothyroxine
LUE edema
also mild edema on RUE
check dopplers to r/o DVT
chronci lymphedema
with some weeping/wounds
IV lasix x1
DVT PPX - on eliquis
Code status - Full Code
SNF on dc
Anticipated Discharge: > 48 hours
Subjective/Interval History
-
Date of Service: November 25, 2024
Patient got nauseous this morning, spit up clear fluid. Did not want to eat breakfast. Daughter at bedside, updated on plan of care, she also provided additional history.
Objective Data
-
Labs:
Laboratory Results
11/25/24
03:15
WBC 6.3
Hgb 11.3 L
Hct 34.4 L
Plt Count 116 L
Sodium 142
Potassium 4.3
Chloride 115 H
Carbon Dioxide 27
BUN 19 H
Creatinine 1.3 H
Glucose 86
Calcium 9.1
Vital Signs:
Vital Signs
Temp Pulse Resp BP Pulse Ox
98.1 F 72 17 148/84 94
11/25/24 07:38 11/25/24 08:00 11/25/24 08:00 11/25/24 08:00 11/25/24 08:00
I&O
11/24/24 11/25/24 11/26/24
06:59 06:59 06:59
Intake Total 610 / 610 600 / 600 150 / 150
Output Total 525 / 525 415 / 415
Balance 85 / 85 185 / 185 150 / 150
Review of Systems
-
All other systems: Reviewed and negative
Physical Exam
-
General: No Apparent Distress
HEENT: Moist Mucous Membranes, Anicteric and PERRLA
Respiratory: Clear to Auscultation; Negative Wheezes, Rales or Crackles
Cardiac: Regular Rhythm and S1/S2; Negative Murmur
GI: Soft, Nontender, Nondistended and Normal Bowel Sounds
Musculoskeletal: Edema, Right Upper Extrem, Edema, Left Upper Extrem, Edema, Right Lower Extrem and Edema, Left Lower Extrem
Skin: Warm, Dry, Rash and Ulcers
Neuro: Awake, Alert and Oriented
Psych: Calm
Data Reviewed
-
CT Scan: Image personally visualized and interpreted, Report Reviewed by me, Discussed with Patient and Discussed with Family
MRI: Report Reviewed by me, Discussed with Physician, Discussed with Patient and Discussed with Family
Labs: Labs Reviewed by me, Discussed with Nurse, Discussed with Patient and Discussed with Family
[2024-11-25] MEDS: LASIX 40 MG IV (11:43)
[2024-11-25 12:52] LABS: Glucose - Point of Care 82 mg/dl (70-99)
--- NOTE | 2024-11-25 15:31 | PTCARENOTE ---
Rhythm change to AFIB. Rate controlled in 70s. Hx of afib currently on Eliquis. EKG done. Dr Beltran made aware.
Pt drowsy. Sleeping throughout day. Refusing meals. Encouraging pt to drink Ensure.
Good urine output after receiving Lasix. Pt incontinent. Purewick in place. See I&Os.
[2024-11-25 16:56] LABS: Glucose - Point of Care 101 mg/dl (70-99)
[2024-11-25] MEDS: SENOKOT-S 1 TABLET PO (17:49)
[2024-11-25] MEDS: MIRALAX 17 GRAMS PO (17:49)
[2024-11-25] MEDS: REMOVE LIDOCAINE PATCH 2 PATCH REMOVE (20:01)
[2024-11-25] MEDS: TOPROL XL PO (20:01)
--- NOTE | 2024-11-25 21:06 | PTCARENOTE ---
Patient received in bed drowsy, but arousable to verbal commands. AAOx3 and able to make her needs known. Does not verbalize pain at this time. Plan of care for the shift reviewed with the patient. Patient recalls 'being really sick yesterday.'
States that she feels mild nausea but is tolerable. Fluctuating between controlled AFib and sinus rhythm on the monitor. Expiratory wheezes to bilateral posterior. SpO2 at 95% on 2L via nc. Assisted the patient with her ensure plus. Pt drank a
small amount. Verbalizes not having appetite with her dinner. Purewick is intact and draining yellow urine. Patent IVs. Pt turned and repositioned. Call jeronimo is within reach.
[2024-11-25 21:18] LABS: Glucose - Point of Care 113 mg/dl (70-99)
[2024-11-26] VITALS (13 sets, daily range): BP systolic 93–128; BP diastolic 56–103; BMI 39.6
[2024-11-26 04:30] LABS: Hematocrit 36.8 % (37.0-47.0); Hemoglobin 11.8 g/dL (12.0-16.0); Mean Corp Hgb Conc. 32.1 g/dL (33.0-37.0); Mean Corpuscular Volume 107.0 fL (81.0-99.0); Nucleated Red Blood Cells % 0 %; Platelet Count 124 10^3/uL (130-400); Red Cell Dist. Width 17.0 % (11.5-14.5)
[2024-11-26 04:47] LABS: Blood Urea Nitrogen 18 mg/dl (7-17); Calcium 8.7 mg/dl (8.4-10.2); Carbon Dioxide 29 mmol/L (22-30); Chloride 111 mmol/L (98-107); Estimated Creatinine Clearance 48 ml/min; Glucose 86 mg/dl (70-99); Potassium 4.5 mmol/L (3.5-5.1); Sodium 140 mmol/L (135-145); eGFR 45.76
[2024-11-26 05:18] LABS: Cortisol, Random 14.4 ug/dl
[2024-11-26] MEDS: SYNTHROID 137 MCG PO (06:31)
[2024-11-26] MEDS: CORTROSYN 0.25 MG IV (07:36)
[2024-11-26] MEDS: NSS (PRESERVATIVE FREE) 1 ML IV (07:37)
[2024-11-26 07:42] LABS: ACTH Stim Cortisol 0 Min 16.9 ug/dl
[2024-11-26] MEDS: LIDOCAINE 4% PATCH 2 PATCH TOPICAL (08:07)
[2024-11-26] MEDS: LASIX 20 MG PO (08:31)
[2024-11-26] MEDS: PACERONE 200 MG PO (08:31)
[2024-11-26] MEDS: TOPROL XL 75 MG PO (08:32)
[2024-11-26] MEDS: VITAMIN B1 100 MG PO (08:32)
[2024-11-26] MEDS: HYDROPHOR 1 APPLIC TOPICAL (08:33)
[2024-11-26] MEDS: ELIQUIS 5 MG PO ×2 (08:33→20:20)
--- NOTE | 2024-11-26 08:38 | W.PN.ID1 ---
Date of Service
Date of Service: November 26, 2024
Today's Communication
Observe off antibiotics.
Assessment / Plan
# Hypothermia, improved
# s/p Hypotension; off pressor
# Staph epidermidis bacteremia 1 of 2 sets = contaminant
# Thrombocytopenia
# 1 month h/o failure to thrive
# Chronic BLE lymphedema, wounds do not look infected.
- Unclear source of hypothermia and hypotension.
- VSE : no aspiration
- Repeat Blood cx's x2 neg
- Repeat UA >100 WBC, >30sq (likely contaminant). Ucx negative.
- CT C/A/P unremarkable.
--> Continue to observe off antibiotics.
- Follow temps
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
P A-fib
HTN
Class III obesity
Rheumatoid arthritis
Hypothyroidism
Hypertrophic cardiomyopathy
Venous insufficiency
LE lymphedema
ICD placement
Cholecystectomy
Hysterectomy
Bilateral knee replacement
Carpal tunnel release surgery
Sinus surgery
Chief Complaint
-: Clinical Sepsis
Subjective / Review of Systems
Review of Systems: No Fever and No Chills
Vital Signs / Physical Exam
Vital Signs
Vital Signs
Temp Pulse Resp BP Pulse Ox
97.4 F 69 15 118/80 98
11/26/24 03:38 11/26/24 06:00 11/26/24 06:00 11/26/24 06:00 11/26/24 06:00
Physical Exam
Constitutional: Chronically Ill, Non-toxic and Obese
Cardiovascular: S1/S2; Negative S3/S4
Pulmonary: Non Labored; Negative Rhonchi
Gastrointestinal: Soft, Normal Bowel Sounds and No Rebound
Extremities: Edema and Venous Insufficiency (Bilateral lower extremities with tissue texture changes.); Negative Erythema
Neurological: Awake and Alert
Psychological: Calm
Objective Data
Lab Data
Lab Results
11/26/24 04:09
11/26/24 04:09
PT 17.0 Sec (11.4-14.6) H 11/20/24 22:28
INR 1.35 11/20/24 22:28
APTT 49.3 Sec (23.4-35.0) H 11/20/24 22:28
Estimated Creat Clear 48 ml/min 11/26/24 04:09
Lactic Acid Cancelled 11/21/24 08:59
Total Bilirubin 0.7 mg/dl (0.2-1.3) 11/22/24 04:34
AST 26 U/L (14-36) 11/22/24 04:34
ALT 24 U/L (0-35) 11/22/24 04:34
Alkaline Phosphatase 81 U/L (38-126) 11/22/24 04:34
Most recent labs reviewed.
Micro Results:
11/20/24 13:32 Blood Culture - Final
Blood/Venous No Growth - Final Report
11/22/24 12:03 Blood Culture - Preliminary
Blood/Venous No Growth in 72 hours- Final report to follow
11/22/24 11:12 Blood Culture - Preliminary
Blood/Venous No Growth in 72 hours- Final report to follow
11/23/24 06:41 Urine Culture - Final
Urine NO GROWTH
11/20/24 19:27 Blood Culture - Preliminary
Blood/Venous Staphylococcus epidermidis
Additional testing on request
Gram Stain - Preliminary
11/20/24 22:28 MRSA Screen - Final
Nose No Methicillin Resistant Staphylococcus aureus isolated.
11/20/24 22:28 Influenza Types A & B (ALVIN) - Final
Nasal Swab Negative for Influenza A & B, NAAT
Negative results must be combined with clinical observations
and patient history.
Nucleic Acid Amplification test (NAAT)performed on the
[employer] platform.
Imaging:
11/24/2024 CT chest/abdomen/pelvis with IV contrast: small left and small to moderate right pleural effusion with associated compressive atelectasis. Small volume perihepatic ascites. No other significant findings noted. Please see full dictation
for additional detail.
11/23/24 Brain MRI: No acute intracranial abnormality noted.
11/20/24 CXR: No acute cardiopulmonary process.
[2024-11-26 09:09] LABS: Glucose - Point of Care 83 mg/dl (70-99)
--- NOTE | 2024-11-26 09:09 | PTCARENOTE ---
Pt vomited immediately after 2 bites of food. Denies feeling nauseated before eating. Denies nausea at this time.
[2024-11-26 09:34] LABS: ACTH Stim Cortisol 30 Min 24.3 ug/dl
[2024-11-26 09:43] LABS: ACTH Stim Cortisol 60 Min 29.1 ug/dl
[2024-11-26] MEDS: DULCOLAX 10 MG RECTAL (10:04)
[2024-11-26 12:20] LABS: Glucose - Point of Care 95 mg/dl (70-99)
--- NOTE | 2024-11-26 12:24 | W.PN.HOSP.TC ---
Today's Communication/Plan
-
redose IV lasix
cortisol stim test was normal
labs as below
Assessment / Plan
Assessment / Plan
79F with hypertrophic cardiomyopathy, ventricular tachycardia status post ICD, paroxysmal atrial fibrillation, hypertension, obesity, rheumatoid arthritis and hypothyroidism, p/w lethargy. She was found to be hypothermic and hypotensive.
Hypothermia
Shock - resolved
for unexplained etiology cannot identify the source
-Random cortisol wnl
-Blood culture 03/09 staph epidermidis on admit, repeat BCx 11/22 NGTD. MRSA neg
-Urine culture NGTD
pt again with hypothermia which I think was due to the hypotension. We already ruled out uncontrolled hypothyroidism, adrenal insufficiency (normal cortisol stim test), sepsis. could be related to malnutrition. Already treating with thiamine.
Today's glucose is improved. can also be a/w neuromuscular disease causing some kind of autonomic dysfunction or autoimmune issue, check ESR and LYNDSAY
- Given the recurrence of her hypothermia checked CT chest abdomen and pelvis with contrast which did not show any acute abnormalities other than mild pleural effusions which I attribute to the fluid we gave her when she came in. No e/o cancer to
suggest paraneoplastic syndrome
-initially Cefepime/Vanc (possible skin source but unlikely). ID is following and descalated to ceftriaxone--> now have discontinued given no source and no positive cultures
hypothermia has improved
levophed weaned off
- hold lisinopril until BP elevated
Metabolic encephalopathy
failure to thrive
suspect due to infection as treated above vs neurodegenerative disease
pt had previous CTH in 04/2024 that was unremarkable and now MRI brain is performed and negative for acute abnormality. [facility] team spoke with neurology for consult but they noted since this is a chronic issue she should follow up outpatient.
Consider autonomic dysfunction
cont thiamine
Nutrition consult
AFIB
Rate controlled and intermittently jesse
- continue eliquis 5 bid
- continue amio 200 daily
- resumed metoprolol
Hypothyroidism
- TSH 2.4
- continue oral levothyroxine
TSH rechecked was 5.23 and T4 was 1.84
LUE edema
also mild edema on RUE
checked dopplers to r/o DVT - negative
chronic lymphedema
with some weeping/wounds
IV lasix will redose today
DVT PPX - on eliquis
Code status - Full Code
SNF on dc
Anticipated Discharge: > 48 hours
Subjective/Interval History
-
Date of Service: November 26, 2024
Patient reports feeling okay today. Denies nausea or vomiting
Objective Data
-
Labs:
Laboratory Results
11/26/24
04:09
WBC 7.1
Hgb 11.8 L
Hct 36.8 L
Plt Count 124 L
Sodium 140
Potassium 4.5
Chloride 111 H
Carbon Dioxide 29
BUN 18 H
Creatinine 1.2 H
Glucose 86
Calcium 8.7
Vital Signs:
Vital Signs
Temp Pulse Resp BP Pulse Ox
96.9 F L 76 15 122/80 96
11/26/24 11:24 11/26/24 10:00 11/26/24 10:00 11/26/24 10:00 11/26/24 10:00
I&O
11/25/24 11/26/24 11/27/24
06:59 06:59 06:59
Intake Total 600 / 600 600 / 600 200 / 200
Output Total 415 / 415 3050 / 3050
Balance 185 / 185 -2450 / -2450 200 / 200
Review of Systems
-
All other systems: Reviewed and negative
Physical Exam
-
General: No Apparent Distress
HEENT: Moist Mucous Membranes, Anicteric, PERRLA and Other (dentures)
Respiratory: Clear to Auscultation; Negative Wheezes, Rales or Crackles
Cardiac: Regular Rhythm and S1/S2; Negative Murmur
GI: Soft, Nontender, Nondistended and Normal Bowel Sounds
Musculoskeletal: Edema, Right Upper Extrem, Edema, Left Upper Extrem, Edema, Right Lower Extrem and Edema, Left Lower Extrem
Skin: Warm, Dry, Rash and Ulcers
Neuro: Awake, Alert and Oriented
Psych: Calm
Data Reviewed
-
CT Scan: Image personally visualized and interpreted, Report Reviewed by me, Discussed with Patient and Discussed with Family
MRI: Report Reviewed by me, Discussed with Physician, Discussed with Patient and Discussed with Family
Labs: Labs Reviewed by me, Discussed with Nurse, Discussed with Patient and Discussed with Family
[2024-11-26] MEDS: LASIX 40 MG IV (14:15)
[2024-11-26] MEDS: REMOVE LIDOCAINE PATCH 2 PATCH REMOVE (20:22)
[2024-11-26] MEDS: TOPROL XL PO (20:22)
[2024-11-26 23:21] LABS: Glucose - Point of Care 116 mg/dl (70-99)
[2024-11-27] VITALS (16 sets, daily range): BP systolic 88–113; BP diastolic 59–83; PULSE 64; O2SAT 93; BMI 38.9
--- NOTE | 2024-11-27 04:06 | PTCARENOTE ---
pt incontinent of large loose brown BM. Purwick removed. Bed linens changed, CHG wipes done. Pt resting comfortably in bed at this time. VSS. Call jeronimo in reach. Care ongoing.
[2024-11-27] MEDS: SYNTHROID 137 MCG PO (05:19)
[2024-11-27 06:14] LABS: Blood Urea Nitrogen 22 mg/dl (7-17); Calcium 8.6 mg/dl (8.4-10.2); Carbon Dioxide 34 mmol/L (22-30); Chloride 104 mmol/L (98-107); Estimated Creatinine Clearance 47 ml/min; Glucose 101 mg/dl (70-99); Potassium 3.9 mmol/L (3.5-5.1); Sodium 140 mmol/L (135-145); eGFR 45.76
[2024-11-27 06:42] LABS: Hematocrit 38.6 % (37.0-47.0); Hemoglobin 12.8 g/dL (12.0-16.0); Mean Corp Hgb Conc. 33.2 g/dL (33.0-37.0); Mean Corpuscular Volume 106.0 fL (81.0-99.0); Nucleated Red Blood Cells % 0 %; Platelet Count 144 10^3/uL (130-400); Red Cell Dist. Width 16.2 % (11.5-14.5)
[2024-11-27 07:41] LABS: Glucose - Point of Care 112 mg/dl (70-99)
[2024-11-27] MEDS: LASIX 20 MG PO (09:08)
[2024-11-27] MEDS: PACERONE 200 MG PO (09:08)
[2024-11-27] MEDS: VITAMIN B1 100 MG PO (09:09)
[2024-11-27] MEDS: LIDOCAINE 4% PATCH 2 PATCH TOPICAL (09:09)
[2024-11-27] MEDS: ELIQUIS 5 MG PO ×2 (09:09→20:08)
[2024-11-27] MEDS: HYDROPHOR 1 APPLIC TOPICAL (09:10)
[2024-11-27] MEDS: TOPROL XL PO ×2 (09:28→20:00)
--- NOTE | 2024-11-27 11:59 | W.PN.HOSP.TC ---
Today's Communication/Plan
-
continue current supportive measures, warming, midodrine
PT/OT - SNF
Assessment / Plan
Assessment / Plan
79F with hypertrophic cardiomyopathy, ventricular tachycardia status post ICD, paroxysmal atrial fibrillation, hypertension, obesity, rheumatoid arthritis and hypothyroidism, p/w lethargy. She was found to be hypothermic and hypotensive.
Assessment:
Hypothermia
Shock - resolved
for unexplained etiology cannot identify the source
- Random cortisol wnl
- Blood culture 03/09 staph epidermidis on admit, repeat BCx 11/22 NGTD. MRSA neg
- Urine culture NGTD
- pt again with hypothermia possibly related to hypotension. Uncontrolled hypothyroidism, adrenal insufficiency (normal cortisol stim test), sepsis. could be related to malnutrition. Already treating with thiamine. Could also be neuromuscular
disease or autonomic dysfunction or autoimmune issue
- Given the recurrence of her hypothermia checked CT chest abdomen and pelvis with contrast which did not show any acute abnormalities other than mild pleural effusions - attributed to iatrogenic fluid given in hospital
- initially Cefepime/Vanc (possible skin source but unlikely). ID is following and de-escalated to ceftriaxone--> now have discontinued given no source and no positive cultures
- hypothermia has improved; continue warming measures
- off Levophed; prn midodrine. BP meds stopped
Metabolic encephalopathy
Failure to thrive
- suspect due to infection as treated above vs neurodegenerative disease
- pt had previous CTH in 04/2024 that was unremarkable and now MRI brain is performed and negative for acute abnormality.
- OP Neurology eval at [facility]: could be autonomic dysfunction
- thiamine; nutrition consult
A. Fib
- continue eliquis 5 bid
- continue amio 200 daily
- resumed metoprolol
Hypothyroidism
- TSH 2.4
- continue oral levothyroxine
- TSH rechecked was 5.23 and T4 was 1.84
LUE edema
- also mild edema on RUE
- checked dopplers to r/o DVT - negative
chronic lymphedema
with some weeping/wounds
- s/p IV Lasix doses; resume oral Lasix
DVT ppx: Eliquis
Code: Full
Anticipated Discharge: > 48 hours
Subjective/Interval History
-
Date of Service: November 27, 2024
resting comfortably
no complaints
BP>90
temp>97
Objective Data
-
Labs:
Laboratory Results
11/27/24
05:47
WBC 11.0 H
Hgb 12.8
Hct 38.6
Plt Count 144
Sodium 140
Potassium 3.9
Chloride 104
Carbon Dioxide 34 H
BUN 22 H
Creatinine 1.2 H
Glucose 101 H
Calcium 8.6
Vital Signs:
Vital Signs
Temp Pulse Resp BP Pulse Ox
97.5 F 79 17 98/70 95
11/27/24 07:35 11/27/24 10:00 11/27/24 10:00 11/27/24 10:00 11/27/24 11:56
I&O
11/26/24 11/27/24 11/28/24
06:59 06:59 06:59
Intake Total 600 / 600 320 / 320
Output Total 3050 / 3050 1000 / 1000
Balance -2450 / -2450 -680 / -680
Physical Exam
-
General: No Apparent Distress
HEENT: Normocephalic and Atraumatic
Respiratory: Negative Wheezes
Cardiac: Regular Rhythm and S1/S2
GI: Soft and Nontender
Genito-urinary: No Costovertebral Tender
Neuro: AO x 3
Psych: Calm
Data Reviewed
-
Total Time Spent with Patient (in minutes): 42
Labs: Labs Reviewed by me
[2024-11-27 12:17] LABS: Glucose - Point of Care 109 mg/dl (70-99)
--- NOTE | 2024-11-27 13:04 | W.PN.ID1 ---
Date of Service
Date of Service: November 27, 2024
Today's Communication
Observe off abx.
ID will sign off. Call prn.
Assessment / Plan
# Hypothermia, improved
# s/p Hypotension; off pressor
# Staph epidermidis bacteremia 1 of 2 sets = contaminant
# Thrombocytopenia
# 1 month h/o failure to thrive
# Chronic BLE lymphedema, wounds do not look infected.
- Unclear source of hypothermia
- VSE : no aspiration
- Repeat Blood cx's x2 neg
- Ucx negative.
- CT C/A/P unremarkable.
- Observe off abx.
ID will sign off.
# Conditions [employer]
P A-fib
HTN
Class III obesity
Rheumatoid arthritis
Hypothyroidism
Hypertrophic cardiomyopathy
Venous insufficiency
LE lymphedema
ICD placement
Cholecystectomy
Hysterectomy
Bilateral knee replacement
Carpal tunnel release surgery
Sinus surgery
Chief Complaint
-: Clinical Sepsis
Vital Signs / Physical Exam
Vital Signs
Vital Signs
Temp Pulse Resp BP Pulse Ox
97.5 F 65 16 105/74 95
11/27/24 07:35 11/27/24 12:00 11/27/24 12:00 11/27/24 12:00 11/27/24 12:00
Physical Exam
Constitutional: Acutely Ill and Chronically Ill
Eyes: No Conjunctival Hemorrhage and Sclera Anicteric
Cardiovascular: Regular Rate and S1/S2
Pulmonary: Clear
Gastrointestinal: Soft, Non Tender and Non Distended
Genito-Urinary: Negative CVA Tenderness
Extremities: Edema (BLE lymphedema) and Venous Insufficiency
Neurological: Other (Lethargic)
Objective Data
Lab Data
Lab Results
11/27/24 05:47
11/27/24 05:47
ESR 58 mm/hour (0-20) H 11/27/24 05:47
PT 17.0 Sec (11.4-14.6) H 11/20/24 22:28
INR 1.35 11/20/24 22:28
APTT 49.3 Sec (23.4-35.0) H 11/20/24 22:28
Estimated Creat Clear 47 ml/min 11/27/24 05:47
Lactic Acid Cancelled 11/21/24 08:59
Total Bilirubin 0.7 mg/dl (0.2-1.3) 11/22/24 04:34
AST 26 U/L (14-36) 11/22/24 04:34
ALT 24 U/L (0-35) 11/22/24 04:34
Alkaline Phosphatase 81 U/L (38-126) 11/22/24 04:34
Most recent labs reviewed.
Micro Results:
11/22/24 12:03 Blood Culture - Final
Blood/Venous No Growth - Final Report
11/22/24 11:12 Blood Culture - Final
Blood/Venous No Growth - Final Report
11/20/24 19:27 Blood Culture - Final
Blood/Venous Staphylococcus epidermidis
Additional testing on request
Gram Stain - Final
11/20/24 13:32 Blood Culture - Final
Blood/Venous No Growth - Final Report
11/23/24 06:41 Urine Culture - Final
Urine NO GROWTH
11/20/24 22:28 MRSA Screen - Final
Nose No Methicillin Resistant Staphylococcus aureus isolated.
11/20/24 22:28 Influenza Types A & B ([facility]) - Final
Nasal Swab Negative for Influenza A & B, NAAT
Negative results must be combined with clinical observations
and patient history.
Nucleic Acid Amplification test (NAAT)performed on the
[employer] platform.
Imaging:
11/24/2024 CT chest/abdomen/pelvis with IV contrast: small left and small to moderate right pleural effusion with associated compressive atelectasis. Small volume perihepatic ascites. No other significant findings noted. Please see full dictation
for additional detail.
11/23/24 Brain MRI: No acute intracranial abnormality noted.
11/20/24 CXR: No acute cardiopulmonary process.
--- NOTE | 2024-11-27 14:50 | PTCARENOTE ---
Caring for pt throughout the day. Aox3, drowsy. Afib on tele monitor. Sating mid 90's on 2L. BP soft, PRN Midodrine administered with good effect. Dr. Moon notified of BP's. No complaints of nausea at this time; tolerating diet. Daughter at
bedside. Updated on plan of care. Call jeronimo within reach. Safe environment maintained.
--- NOTE | 2024-11-27 16:18 | CM ---
Following up on Patient.
[facility] spoke to Medical Attending, likely in a few days patient will be ready. SNF Referrals were already sent. [facility] to follow up tomorrow.
PLAN: SNF when ready.
[2024-11-27 17:16] LABS: Glucose - Point of Care 107 mg/dl (70-99)
[2024-11-27] MEDS: REMOVE LIDOCAINE PATCH 2 PATCH REMOVE (20:08)
[2024-11-27 21:33] LABS: Glucose - Point of Care 118 mg/dl (70-99)
[2024-11-28] VITALS (13 sets, daily range): BP systolic 100–130; BP diastolic 58–98
--- NOTE | 2024-11-28 02:34 | PTCARENOTE ---
Pt with A-pacing on CM. BPs stable. 95% on 2L O2. Denies complaints at this time. Pt able to void on BP. Hygiene care performed. Bed alarm in place for pt safety. Q2T schedule maintained to prevent skin breakdown. Care ongoing.
[2024-11-28] MEDS: SYNTHROID 137 MCG PO (06:04)
[2024-11-28 06:30] LABS: Hematocrit 34.3 % (37.0-47.0); Hemoglobin 11.2 g/dL (12.0-16.0); Mean Corp Hgb Conc. 32.7 g/dL (33.0-37.0); Mean Corpuscular Volume 105.9 fL (81.0-99.0); Platelet Count 153 10^3/uL (130-400); Red Cell Dist. Width 16.1 % (11.5-14.5)
[2024-11-28 06:50] LABS: Blood Urea Nitrogen 30 mg/dl (7-17); Calcium 8.3 mg/dl (8.4-10.2); Carbon Dioxide 34 mmol/L (22-30); Chloride 104 mmol/L (98-107); Estimated Creatinine Clearance 47 ml/min; Glucose 86 mg/dl (70-99); Potassium 3.7 mmol/L (3.5-5.1); Sodium 138 mmol/L (135-145); eGFR 45.76
[2024-11-28] MEDS: DESENEX/MITRAZOL/ZEASORB 1 APPLIC TOPICAL (07:55)
[2024-11-28] MEDS: HYDROPHOR 1 APPLIC TOPICAL (07:55)
[2024-11-28] MEDS: LASIX 20 MG PO (07:56)
[2024-11-28] MEDS: VITAMIN B1 100 MG PO (07:56)
[2024-11-28] MEDS: ELIQUIS 5 MG PO ×2 (07:56→19:34)
[2024-11-28] MEDS: TOPROL XL 75 MG PO (07:56)
[2024-11-28] MEDS: PACERONE 200 MG PO (07:57)
[2024-11-28] MEDS: LIDOCAINE 4% PATCH TOPICAL (08:08)
[2024-11-28 08:40] LABS: Glucose - Point of Care 84 mg/dl (70-99)
--- NOTE | 2024-11-28 09:05 | PTCARENOTE ---
Pt hypothermic with oral temp 92.5. Dr. Moon notified. Rectal probe and pastora hugger placed on pt for goal temp of 97- see intervention.
[2024-11-28 11:59] LABS: Glucose - Point of Care 136 mg/dl (70-99)
--- NOTE | 2024-11-28 12:48 | PTCARENOTE ---
Pt reached goal temp, pastora flynn removed.
--- NOTE | 2024-11-28 12:53 | W.PN.HOSP.TC ---
Today's Communication/Plan
-
Neuro evaluation
Assessment / Plan
Assessment / Plan
79F with hypertrophic cardiomyopathy, ventricular tachycardia status post ICD, paroxysmal atrial fibrillation, hypertension, obesity, rheumatoid arthritis and hypothyroidism, p/w lethargy. She was found to be hypothermic and hypotensive.
Assessment:
Hypothermia
Shock - resolved
- for unexplained etiology cannot identify the source
- Random cortisol wnl
- Blood culture 1/2 staph epidermidis on admit, repeat BCx 11/22 NGTD. MRSA neg
- Urine culture NGTD
- pt again with hypothermia possibly related to hypotension. Uncontrolled hypothyroidism, adrenal insufficiency (normal cortisol stim test), sepsis. could be related to malnutrition. Already treating with thiamine. Could also be neuromuscular
disease or autonomic dysfunction
- neuro evaluation requested 11/28
- Given the recurrence of her hypothermia checked CT chest abdomen and pelvis with contrast which did not show any acute abnormalities other than mild pleural effusions - attributed to iatrogenic fluid given in hospital
- initially Cefepime/Vanc (possible skin source but unlikely). ID is following and de-escalated to ceftriaxone--> now have discontinued given no source and no positive cultures
- hypothermia has improved; continue warming measures
- off Levophed; prn midodrine. BP meds stopped
Metabolic encephalopathy
Chronic hallucinations
Failure to thrive
- suspect due to infection as treated above vs neurodegenerative disease
- pt had previous CTH in 04/2024 that was unremarkable and now MRI brain is performed and negative for acute abnormality.
- OP Neurology eval at [facility]: could be autonomic dysfunction
- neuro evaluation requested 11/28
- thiamine; nutrition consult
A. Fib
- continue Eliquis 5 bid
- continue amiodarone 200 daily
- resumed metoprolol
Hypothyroidism
- TSH 2.4
- continue oral levothyroxine
- TSH rechecked was 5.23 and T4 was 1.84
LUE edema
- also mild edema on RUE
- DVT studies negative
chronic lymphedema
with some weeping/wounds
- s/p IV Lasix doses; resume oral Lasix
DVT ppx: Eliquis
Code: Full
Anticipated Discharge: 24 - 48 hours
Subjective/Interval History
-
Date of Service: November 28, 2024
hypothermic to 92 today, patient asymptomatic
Lita-hugger applied and improvement of temp to 96.9F
Objective Data
-
Labs:
Laboratory Results
11/28/24
06:13
WBC 6.4
Hgb 11.2 L
Hct 34.3 L
Plt Count 153
Sodium 138
Potassium 3.7
Chloride 104
Carbon Dioxide 34 H
BUN 30 H
Creatinine 1.2 H
Glucose 86
Calcium 8.3 L
Vital Signs:
Vital Signs
Temp Pulse Resp BP Pulse Ox
96.9 F L 60 16 130/98 94
11/28/24 12:00 11/28/24 12:00 11/28/24 12:00 11/28/24 10:01 11/28/24 12:49
I&O
11/27/24 11/28/24 11/29/24
06:59 06:59 06:59
Intake Total 320 / 320
Output Total 1000 / 1000
Balance -680 / -680
Physical Exam
-
General: No Apparent Distress
HEENT: Normocephalic and Atraumatic
Respiratory: Negative Wheezes
Cardiac: Regular Rhythm and S1/S2
GI: Soft
Genito-urinary: No Costovertebral Tender
Neuro: AO x 3
Psych: Calm
Data Reviewed
-
Total Time Spent with Patient (in minutes): 42
Labs: Labs Reviewed by me
--- NOTE | 2024-11-28 14:01 | CON.NEURO ---
Consultation
Order
Date of Consultation: 11/28/24
Requesting Provider: Rene Moon MD
Reason for Consult: Weakness, hallucinations, autonomic dysfunction
Neurology Consultation Note.
HPI: This is an 79-year-old woman who presented to [facility] on 11/20/2024 with hypotension and hypothermia.
Ms. Rojo reports waking up in the hospital without remembering the events that led to her admission. The patient states she went to bed at night and the next thing she knew, she was in the hospital. She is unable to recall what happened or what
made her come to the hospital. This morning, she reports her temperature went down to 62 degrees, though she did not feel cold.
The patient reports using a walker for mobility, which she has been using for 6 months to a year due to imbalance. She reports having chronic back pain. Previous treatments for her back pain included physical therapy, which she did not find helpful,
and an injection that provided no relief.
According to patient's daughter Ms. Rojo's condition began deteriorating approximately one month ago when she started experiencing confusion and increased lethargy. Her daughter reports that in the week prior to hospitalization, the patient's
eating habits and bathroom routines changed significantly. She consulted her primary care physician, who performed a physical examination and blood work. The doctor adjusted the patient's blood pressure medication, reducing one and discontinuing
another. While there was a brief improvement on Wednesday, the patient's condition worsened over the weekend, with minimal food intake. This prompted the daughter to bring her to the emergency room on Wednesday.
Over the past month, the patient's sleep pattern changed dramatically, with her sleeping about 16 hours a day. Her mobility, already limited due to weakness, foot pain, and back soreness, further declined. For the past 10 months, she has been unable
to access her bedroom, instead staying in a recliner couch in the family room downstairs. The patient experienced difficulty swallowing tabs about 4 weeks ago, struggling after the first of her approximately 10 daily medications.
Prior to this acute decline, the patient was largely independent. Two months ago, she could manage self-care tasks, including bathing, dressing, and meal preparation. She was able to handle her finances and use her cell phone effectively. However,
she had reduced her driving over the past 4-5 months. The patient experienced a brief episode of hallucinations in April, which was investigated with a brain scan at the emergency room
Review of vital signs was notable for hypotension down to 69/46 and hypothermia down to 33.6 C
PDMP: No recently prescribed medications
Admission labs: WBCs�4.6, normal hemoglobin, MCV�106.1, platelets�104, creatinine�1.4, normal sodium, CK, TSH, cortisol, glucose�150
Brain MRI wo kamar(11/23/2024) mild to moderate hyperintensity within the periventricular and deep subcortical white matter.
PMH: hypertrophic cardiomyopathy, rheumatoid arthritis, cervical and lumbar central spinal stenosis paroxysmal A-fib, NSVT, PAD, DM, CKD, hypothyroidism, vitamin B-12 deficiency, BMI 38, osteoporosis, ambulatory dysfunction, lower extremity
lymphedema
PSH: PPM, AICD, bilateral cataract surgery, CTS, tonsillectomy, bilateral TKA, cholecystectomy, CHINYERE, sinus surgery
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
FH: Noncontributory.
All: Codeine, collects
ROS: Constitutional: Negative. Negative for chills, fever and unexpected weight change.
Respiratory: Positive for dyspnea on exertion
Genitourinary: Positive for urinary and stool incontinence
Musculoskeletal: Positive for chronic lower back pain
Skin: Negative for rash.
Allergic/Immunologic: Negative. Negative for immunocompromised state.
Neurological: Positive for confusion
Psychiatric/Behavioral: Positive for visual hallucination
General: Well developed. In no acute distress.
Cardio: regular rate and rhythm without murmur. Extremities 2+ edema.
Neuro:
Mental Status: Alert, oriented to person, place, and date. Mildly impaired attention. Good fund of knowledge. Follows complex requests across the midline. Comprehension, naming, and repetition intact.
Cranial Nerves: Pupils are equally round, surgical. EOMs full. Visual schneider full to confrontation. R>L ptosis. No nystagmus. V1-V3 intact to light touch and pinprick bilaterally, symmetric. Face symmetric. Normal hearing AU. The palate
elevated well. SCMs and traps 5/5. Tongue midline. No dysarthria.
Motor: Normal bulk and tone. No pronator or arm drift. Strength 5/5 throughout except for neck extensors, mild hip flexors.. No clonus.
Reflexes: Limited due to body habitus
Sensory: Absent vibration at the toes and ankles
Coordination: Bilateral dysmetria
Gait: deferred
Assessment and Plan:
I. Dysautonomia. Differential diagnosis includes hypothalamic dysfunction, autonomic neuropathy, other possibilities include MSA, GBS, pure autonomic failure, meningitis, status epilepticus.
II. Polyneuropathy
III. Multifactorial ambulatory dysfunction (spinal stenosis, polyneuropathy)
IV. PA A-FIb.
-Fall precautions
-Please check MG panel, SPEP/immunofixation, YONATHAN
-Brain MRI with gadolinium
-Continue thiamine
-Routine EEG
-Please hold Eliquis for planned LP
- Case was discussed with patient's daughter
I personally reviewed all radiology and labs along with past medical records pertinent to current medical problems. Total time spent in patient care is 60 minutes.
Thank you for allowing us to participate in the care of this patient. We will continue to follow. Please do not hesitate to contact us with any questions or concerns.
Subjective/Objective
Subjective Data
Date of Service: November 28, 2024
Objective Data
Vital Signs
Temp Pulse Resp BP Pulse Ox
36.1 C L 60 16 130/98 94
11/28/24 12:00 11/28/24 12:00 11/28/24 12:00 11/28/24 10:01 11/28/24 12:49
Lab Results
11/28/24 06:13
11/28/24 06:13
PT 17.0 Sec (11.4-14.6) H 11/20/24 22:28
INR 1.35 11/20/24 22:28
APTT 49.3 Sec (23.4-35.0) H 11/20/24 22:28
Sodium 138 mmol/L (135-145) 11/28/24 06:13
Potassium 3.7 mmol/L (3.5-5.1) 11/28/24 06:13
BUN 30 mg/dl (7-17) H 11/28/24 06:13
Glucose 86 mg/dl (70-99) 11/28/24 06:13
Calcium 8.3 mg/dl (8.4-10.2) L 11/28/24 06:13
Phosphorus 3.5 mg/dl (2.5-4.5) 11/20/24 13:32
Vitamin B12 908 pg/ml (239-931) 11/21/24 11:09
Patient Allergies
codeine Allergy (Verified 11/20/24 13:20)
nausea/vomiting
celecoxib Adverse Reaction (Verified 11/20/24 13:20)
stomach pains
Medications
-
Active Medications
Generic Name Dose Route Start Last Admin
Trade Name Freq PRN Reason Stop Dose Admin
Acetaminophen 650 mg 11/20/24 20:59
Acetaminophen 325 Mg Tablet PO 12/18/24 20:58
Q6HPRN PRN
mild pain/ fever>100.5F
Amiodarone HCl 200 mg 11/21/24 08:00 11/28/24 07:57
Amiodarone 200 Mg Tablet PO 12/19/24 07:59 200 mg
DAILY CHAO Administration
Apixaban 5 mg 11/20/24 20:59 11/28/24 07:56
Apixaban (Eliquis) 5 Mg Tablet PO 12/18/24 20:58 5 mg
BID CHAO Administration
Bisacodyl 10 mg 11/24/24 09:28 11/26/24 10:04
Bisacodyl 10 Mg Rectal Suppository RECTAL 12/22/24 09:27 10 mg
[id number] PRN Administration
constipation
Dextrose 12.5 grams 11/23/24 08:00 11/24/24 07:52
Dextrose 50% (0.5 Grams/Ml) 50 Ml Syringe IV 12/21/24 07:59 12.5 grams
[id number] PRN Administration
hypoglycemia
Protocol
Emollient Ointment 0 applic 11/22/24 08:00 11/28/24 07:55
Petrolatum/Mineral Oil (Hydrophor) Oint 100 Gram TOPICAL 12/20/24 07:59 1 applic
DAILY CHAO Administration
Furosemide 20 mg 11/26/24 08:00 11/28/24 07:56
Furosemide 20 Mg Tablet PO 12/24/24 07:59 20 mg
DAILY CHAO Administration
Glucagon 1 mg 11/23/24 08:00
Glucagon 1 Mg Vial IM 12/21/24 07:59
PRN PRN
hypoglycemia - no IV access
Protocol
Levothyroxine Sodium 137 mcg 11/21/24 06:00 11/28/24 06:04
Levothyroxine 137 Mcg Tablet PO 12/19/24 05:59 137 mcg
DAILY@0600 CHAO Administration
Lidocaine 2 patch 11/21/24 11:30 11/28/24 08:08
Lidocaine 4% Topical Patch TOPICAL 12/19/24 11:29 Not Given
DAILY CHAO
Metoprolol Succinate 75 mg 11/25/24 20:00 11/28/24 07:56
Metoprolol 25 Mg Extended Release Tablet PO 12/23/24 19:59 75 mg
BID CHAO Administration
Miconazole Nitrate 0 applic 11/21/24 00:45 11/28/24 07:55
Miconazole Powder Bottle TOPICAL 12/19/24 00:44 1 applic
BIDPRN PRN Administration
groin
Midodrine 5 mg 11/22/24 07:10 11/27/24 09:08
Midodrine 5 Mg Tablet PO 12/20/24 07:59 5 mg
TID@0800,1300,1800 PRN Administration
SBP < 100
Patch Removal 2 patch 11/21/24 20:00 11/27/24 20:08
Remove Lidocaine Patch REMOVE 12/19/24 19:59 2 patch
DAILY@2000 CHAO Administration
Polyethylene Glycol 17 grams 11/24/24 09:28 11/25/24 17:49
Polyethylene Glycol Powder 17 Grams Packet PO 12/22/24 09:27 17 grams
DAILYPRN PRN Administration
constipation
Senna/Docusate Sodium 1 tablet 11/24/24 09:28 11/25/24 17:49
Docusate W/Senna (Ashwini-Colace) Tablet PO 12/22/24 09:27 1 tablet
BIDPRN PRN Administration
constipation
Sodium Chloride 0 flush 11/25/24 11:00
Sodium Chloride 0.9% (Flush) Syringe IV 12/23/24 10:59
PER PROTOCOL CHAO
Thiamine HCl 100 mg 11/24/24 08:00 11/28/24 07:56
Thiamine 100 Mg Tablet PO 12/22/24 07:59 100 mg
DAILY CHAO Administration
Trimethobenzamide HCl 200 mg 11/24/24 10:03 11/25/24 06:35
Trimethobenzamide 200 Mg/2 Ml Vial IM 12/22/24 10:02 200 mg
Q6HPRN PRN Administration
nausea/vomiting
Home Medications
�Medication �Instructions �Recorded
apixaban 5 mg tablet (Eliquis) 5 mg PO BID #60 tabs 05/18/17
cyanocobalamin (vitamin B-12) 1,000 mcg PO DAILY Supplement 02/19/18
1,000 mcg tablet
magnesium oxide 500 mg PO DAILY ##30 02/21/18
amiodarone 200 mg tablet (Pacerone) 200 mg PO DAILY Arrhythmia 12/23/18
levothyroxine 137 mcg tablet 137 mcg PO DAILY Thyroid 05/03/24
(Levoxyl)
metoprolol succinate 50 mg 75 mg PO BID Blood Pressure 05/03/24
tablet,extended release 24 hr
calcium 600 mg (as carbonate)-vit 1 tab PO BID Supplement 11/21/24
D3 20 mcg (800 unit) chewable
tablet (Caltrate plus D)
furosemide 20 mg tablet 20 mg PO DAILY Fluid 11/21/24
Retention/Swelling
lisinopril 10 mg tablet 10 mg PO DAILY Blood Pressure 11/21/24
[id number] tablet 1 tab PO DAILY Supplement 11/21/24
Vital Signs and Labs
-
Vital Signs and Labs:
Vital Signs
Temp Pulse Resp BP Pulse Ox
36.1 C L 60 16 130/98 94
11/28/24 12:00 11/28/24 12:00 11/28/24 12:00 11/28/24 10:01 11/28/24 12:49
Lab Results
11/28/24 06:13
11/28/24 06:13
PT 17.0 Sec (11.4-14.6) H 11/20/24 22:28
INR 1.35 11/20/24 22:28
APTT 49.3 Sec (23.4-35.0) H 11/20/24 22:28
Sodium 138 mmol/L (135-145) 11/28/24 06:13
Potassium 3.7 mmol/L (3.5-5.1) 11/28/24 06:13
BUN 30 mg/dl (7-17) H 11/28/24 06:13
Glucose 86 mg/dl (70-99) 11/28/24 06:13
Calcium 8.3 mg/dl (8.4-10.2) L 11/28/24 06:13
Phosphorus 3.5 mg/dl (2.5-4.5) 11/20/24 13:32
Vitamin B12 908 pg/ml (239931) 11/21/24 11:09
Medications
-
Medications:
Generic Name Dose Route Start Last Admin
Trade Name Freq PRN Reason Stop Dose Admin
Acetaminophen 650 mg 11/20/24 20:59
Acetaminophen 325 Mg Tablet PO 12/18/24 20:58
Q6HPRN PRN
mild pain/ fever>100.5F
Amiodarone HCl 200 mg 11/21/24 08:00 11/28/24 07:57
Amiodarone 200 Mg Tablet PO 12/19/24 07:59 200 mg
DAILY CHAO Administration
Apixaban 5 mg 11/20/24 20:59 11/28/24 07:56
Apixaban (Eliquis) 5 Mg Tablet PO 12/18/24 20:58 5 mg
BID CHAO Administration
Bisacodyl 10 mg 11/24/24 09:28 11/26/24 10:04
Bisacodyl 10 Mg Rectal Suppository RECTAL 12/22/24 09:27 10 mg
[id number] PRN Administration
constipation
Dextrose 12.5 grams 11/23/24 08:00 11/24/24 07:52
Dextrose 50% (0.5 Grams/Ml) 50 Ml Syringe IV 12/21/24 07:59 12.5 grams
[id number] PRN Administration
hypoglycemia
Protocol
Emollient Ointment 0 applic 11/22/24 08:00 11/28/24 07:55
Petrolatum/Mineral Oil (Hydrophor) Oint 100 Gram TOPICAL 12/20/24 07:59 1 applic
DAILY CHAO Administration
Furosemide 20 mg 11/26/24 08:00 11/28/24 07:56
Furosemide 20 Mg Tablet PO 12/24/24 07:59 20 mg
DAILY CHAO Administration
Glucagon 1 mg 11/23/24 08:00
Glucagon 1 Mg Vial IM 12/21/24 07:59
PRN PRN
hypoglycemia - no IV access
Protocol
Levothyroxine Sodium 137 mcg 11/21/24 06:00 11/28/24 06:04
Levothyroxine 137 Mcg Tablet PO 12/19/24 05:59 137 mcg
DAILY@0600 CHAO Administration
Lidocaine 2 patch 11/21/24 11:30 11/28/24 08:08
Lidocaine 4% Topical Patch TOPICAL 12/19/24 11:29 Not Given
DAILY CHAO
Metoprolol Succinate 75 mg 11/25/24 20:00 11/28/24 07:56
Metoprolol 25 Mg Extended Release Tablet PO 12/23/24 19:59 75 mg
BID CHAO Administration
Miconazole Nitrate 0 applic 11/21/24 00:45 11/28/24 07:55
Miconazole Powder Bottle TOPICAL 12/19/24 00:44 1 applic
BIDPRN PRN Administration
groin
Midodrine 5 mg 11/22/24 07:10 11/27/24 09:08
Midodrine 5 Mg Tablet PO 12/20/24 07:59 5 mg
TID@0800,1300,1800 PRN Administration
SBP < 100
Patch Removal 2 patch 11/21/24 20:00 11/27/24 20:08
Remove Lidocaine Patch REMOVE 12/19/24 19:59 2 patch
DAILY@2000 CHAO Administration
Polyethylene Glycol 17 grams 11/24/24 09:28 11/25/24 17:49
Polyethylene Glycol Powder 17 Grams Packet PO 12/22/24 09:27 17 grams
DAILYPRN PRN Administration
constipation
Senna/Docusate Sodium 1 tablet 11/24/24 09:28 11/25/24 17:49
Docusate W/Senna (Ashwini-Colace) Tablet PO 12/22/24 09:27 1 tablet
BIDPRN PRN Administration
constipation
Sodium Chloride 0 flush 11/25/24 11:00
Sodium Chloride 0.9% (Flush) Syringe IV 12/23/24 10:59
PER PROTOCOL CHAO
Thiamine HCl 100 mg 11/24/24 08:00 11/28/24 07:56
Thiamine 100 Mg Tablet PO 12/22/24 07:59 100 mg
DAILY CHAO Administration
Trimethobenzamide HCl 200 mg 11/24/24 10:03 11/25/24 06:35
Trimethobenzamide 200 Mg/2 Ml Vial IM 12/22/24 10:02 200 mg
Q6HPRN PRN Administration
nausea/vomiting
Home Medications
-
Home Medications
apixaban 5 mg tablet (Eliquis) 5 mg PO BID #60 tabs 05/18/17
cyanocobalamin (vitamin B-12) 1,000 mcg tablet 1,000 mcg PO DAILY Supplement 02/19/18
magnesium oxide 500 mg PO DAILY ##30 02/21/18
amiodarone 200 mg tablet (Pacerone) 200 mg PO DAILY Arrhythmia 12/23/18
levothyroxine 137 mcg tablet (Levoxyl) 137 mcg PO DAILY Thyroid 05/03/24
metoprolol succinate 50 mg tablet,extended release 24 hr 75 mg PO BID Blood Pressure 05/03/24
calcium 600 mg (as carbonate)-vit D3 20 mcg (800 unit) chewable tablet (Caltrate plus D) 1 tab PO BID Supplement 11/21/24
furosemide 20 mg tablet 20 mg PO DAILY Fluid Retention/Swelling 11/21/24
lisinopril 10 mg tablet 10 mg PO DAILY Blood Pressure 11/21/24
[id number]-zyofrqup-hbaaqv tablet 1 tab PO DAILY Supplement 11/21/24
--- NOTE | 2024-11-28 16:25 | PTCARENOTE ---
Caring for pt throughout the day. Aox3, drowsy. 100% A paced on tele monitor. Sating mid 90's on 2L. Tolerating diet. Grossly incontinent of urine and stool, kashif care completed. Requiring pastora hugger intermittently. Daughter at bedside. Updated on
plan of care. Call jeronimo within reach. Safe environment maintained.
--- NOTE | 2024-11-28 16:27 | CM ---
Following up on Patient Medical Attending said that patient is ready, but then said to hold off due to another consult going in to evaluate the patient.
[facility] met with the daughter Vilma #[phone] who provided the list of referrals in this order:
[facility] said [facility] will accept pending bed availibility. Now [facility] is waitng for medial clearance.
PLAN: Anticipate SNF for rehab.
[2024-11-28 17:52] LABS: Glucose - Point of Care 85 mg/dl (70-99)
[2024-11-28] MEDS: REMOVE LIDOCAINE PATCH REMOVE (19:23)
[2024-11-28] MEDS: TOPROL XL PO (19:32)
[2024-11-28 21:41] LABS: Glucose - Point of Care 125 mg/dl (70-99)
[2024-11-29] VITALS (17 sets, daily range): BP systolic 97–149; BP diastolic 59–106; PULSE 61; O2SAT 95–97; BMI 38.7
--- NOTE | 2024-11-29 00:45 | PTCARENOTE ---
Pt continues AAOx3, presents with soft speech. Denies complaints at this time. Lita hugger in use intermittently to maintain temp >97. VSS. Call jeronimo within reach. Care ongoing.
[2024-11-29] MEDS: SYNTHROID 137 MCG PO (06:15)
[2024-11-29 08:11] LABS: Glucose - Point of Care 82 mg/dl (70-99)
[2024-11-29] MEDS: ELIQUIS PO (09:25)
[2024-11-29] MEDS: HYDROPHOR 1 APPLIC TOPICAL (09:26)
[2024-11-29] MEDS: PACERONE 200 MG PO (09:26)
[2024-11-29] MEDS: TOPROL XL 75 MG PO ×2 (09:28→21:08)
[2024-11-29] MEDS: LASIX 20 MG PO (09:28)
[2024-11-29] MEDS: LIDOCAINE 4% PATCH TOPICAL (09:28)
[2024-11-29] MEDS: VITAMIN B1 100 MG PO (09:29)
[2024-11-29 12:51] LABS: Glucose - Point of Care 150 mg/dl (70-99)
--- NOTE | 2024-11-29 13:45 | WOUNDNOTE ---
BILATERAL LOWER EXTREMITIES
--- NOTE | 2024-11-29 13:46 | WOUNDNOTE ---
LEFT POSTERIOR LOWER LEG
--- NOTE | 2024-11-29 13:47 | WOUNDNOTE ---
RIGHT POSTERIOR LOWER LEG
--- NOTE | 2024-11-29 13:50 | WOUNDNOTE ---
WON RN NOTE: Followed up with patient, nurse Mary Jane and Scott assisted. Patient much more alert and able to assist with turning. Leg wounds much improved. Skin folds and buttocks with improved MASD, fungal powder in use. Dressings changed on legs
and applied anyi wraps knee high. Heel foams replaced, heels blanchable red. Patient is on an air mattress, patient states she does get oob daily. Will sign off unless needed.
--- NOTE | 2024-11-29 13:56 | PTCARENOTE ---
Patient is awake, alert and oriented today, soft spoken, able to feed herself and follow commands to turn in bed. Good appetite today, complete bath and shampoo provided. Wounds assessed by wound care team. Compression therapy applied to bilateral
lower extremities. EEG completed. Oral temperature is 97.6, warming blanket off.
--- NOTE | 2024-11-29 14:08 | W.PN.HOSP.TC ---
Today's Communication/Plan
-
MRI brain with [facility]
EEG
LP per Neuro
continue supportive prn rewarming, prn midodrine
Assessment / Plan
Assessment / Plan
79F with hypertrophic cardiomyopathy, ventricular tachycardia status post ICD, paroxysmal atrial fibrillation, hypertension, obesity, rheumatoid arthritis and hypothyroidism, p/w lethargy. She was found to be hypothermic and hypotensive.
Assessment:
Hypothermia
Shock - resolved
- for unexplained etiology cannot identify the source
- Random cortisol wnl
- Blood culture / staph epidermidis on admit, repeat BCx 11/22 NGTD. MRSA neg
- Urine culture NGTD
- pt again with hypothermia possibly related to hypotension. Uncontrolled hypothyroidism, adrenal insufficiency (normal cortisol stim test), sepsis ruled out after ID evaluation - no evidence of infections. could be related to malnutrition. continue
thiamine. Could also be neuromuscular disease or autonomic dysfunction.
- Neuro following
- MRI brain with [facility] pending
- EEG
- LP planned 11/30
- hypothermia has improved; continue warming measures
- off Levophed; prn midodrine. BP meds stopped
Metabolic encephalopathy
Chronic hallucinations
Failure to thrive
- suspect due to infection as treated above vs neurodegenerative disease
- pt had previous CTH in 04/2024 that was unremarkable and now MRI brain is performed and negative for acute abnormality.
- Neuro following
- MRI brain with [facility] pending
- EEG
- LP planned 11/30
- thiamine; nutrition consult
A. Fib
- continue Eliquis 5 bid - held today for LP in 24 hours
- continue amiodarone 200 daily
- resumed metoprolol
Hypothyroidism
- TSH 2.4
- continue oral levothyroxine
- TSH rechecked was 5.23 and T4 was 1.84
LUE edema
- also mild edema on RUE
- DVT studies negative
chronic lymphedema
with some weeping/wounds
- s/p IV Lasix doses; resume oral Lasix
DVT ppx: Eliquis - held today for LP in 24 hours
Code: Full
Anticipated Discharge: > 48 hours
Subjective/Interval History
-
Date of Service: November 29, 2024
no hypothermia today
BP stable
per daughter, more alert overall
Objective Data
-
Vital Signs:
Vital Signs
Temp Pulse Resp BP Pulse Ox
97.6 F 62 16 113/70 98
11/29/24 12:48 11/29/24 12:00 11/29/24 12:00 11/29/24 12:00 11/29/24 12:53
I&O
11/28/24 11/29/24 11/30/24
06:59 06:59 06:59
Intake Total 120 / 120
Balance 120 / 120
Physical Exam
-
General: No Apparent Distress and Obese
HEENT: Normocephalic and Atraumatic
Respiratory: Negative Wheezes
Cardiac: Regular Rhythm and S1/S2
GI: Soft and Nontender
Neuro: AO x 3
Psych: Calm
Data Reviewed
-
Total Time Spent with Patient (in minutes): 42
Labs: Labs Reviewed by me
--- NOTE | 2024-11-29 14:09 | W.PN.NEURO.1 ---
Today's Communication / Plan
-
.
Subjective/Objective
Subjective Data
Date of Service: November 29, 2024
Neurology follow-up note.
24h events: normothermic, normotensive off midodrine.
Routine EEG-no evidence of epileptiform abnormalities.
Ms. Rojo reports no complaints.
Brain MRI wo kamar(11/23/2024) mild to moderate hyperintensity within the periventricular and deep subcortical white matter.
PMH: hypertrophic cardiomyopathy, rheumatoid arthritis, cervical and lumbar central spinal stenosis paroxysmal A-fib, NSVT, PAD, DM, CKD, hypothyroidism, vitamin B-12 deficiency, BMI 38, osteoporosis, ambulatory dysfunction, lower extremity
lymphedema
PSH: PPM, AICD, bilateral cataract surgery, CTS, tonsillectomy, bilateral TKA, cholecystectomy, CHINYERE, sinus surgery
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
FH: Noncontributory.
All: Codeine, collects
ROS: Constitutional: Negative. Negative for chills, fever and unexpected weight change.
Respiratory: Positive for dyspnea on exertion
Genitourinary: Positive for urinary and stool incontinence
Musculoskeletal: Positive for chronic lower back pain
Skin: Negative for rash.
Allergic/Immunologic: Negative. Negative for immunocompromised state.
Neurological: Positive for confusion
Psychiatric/Behavioral: Positive for visual hallucination
General: Well developed. In no acute distress.
Cardio: regular rate and rhythm without murmur. Extremities 2+ edema.
Neuro:
Mental Status: Alert, oriented to person, place, and date. Mildly impaired attention. Good fund of knowledge. Follows complex requests across the midline. Comprehension, naming, and repetition intact.
Cranial Nerves: Pupils are equally round, surgical. EOMs full. Visual schneider full to confrontation. R>L ptosis. No nystagmus. V1-V3 intact to light touch and pinprick bilaterally, symmetric. Face symmetric. Normal hearing AU. The palate
elevated well. SCMs and traps 5/5. Tongue midline. No dysarthria.
Motor: Normal bulk and tone. No pronator or arm drift. Strength 5/5 throughout except for neck extensors, mild hip flexors.. No clonus.
Reflexes: Limited due to body habitus
Sensory: Absent vibration at the toes and ankles
Coordination: Bilateral dysmetria
Gait: deferred
Assessment and Plan:
I. Dysautonomia.
II. Polyneuropathy
III. Multifactorial ambulatory dysfunction (spinal stenosis, polyneuropathy)
IV. PA A-Fib.
-Fall precautions
- Would restart Eliquis and defer CSF studies given clinical improvement.
- Continue thiamine
-PT
- Outpatient neurology follow-up.
I personally reviewed all radiology and labs along with past medical records pertinent to current medical problems. Total time spent in patient care is 35 minutes.
Thank you for allowing us to participate in the care of this patient. Please do not hesitate to contact us with any questions or concerns.
Objective Data
Vital Signs
Temp Pulse Resp BP Pulse Ox
36.4 C 62 16 113/70 98
11/29/24 12:48 11/29/24 12:00 11/29/24 12:00 11/29/24 12:00 11/29/24 12:53
Lab Results
11/28/24 06:13
11/28/24 06:13
PT 17.0 Sec (11.4-14.6) H 11/20/24 22:28
INR 1.35 11/20/24 22:28
APTT 49.3 Sec (23.4-35.0) H 11/20/24 22:28
Sodium 138 mmol/L (135-145) 11/28/24 06:13
Potassium 3.7 mmol/L (3.5-5.1) 11/28/24 06:13
BUN 30 mg/dl (7-17) H 11/28/24 06:13
Glucose 86 mg/dl (70-99) 11/28/24 06:13
Calcium 8.3 mg/dl (8.4-10.2) L 11/28/24 06:13
Phosphorus 3.5 mg/dl (2.5-4.5) 11/20/24 13:32
Vitamin B12 908 pg/ml (239-931) 11/21/24 11:09
Patient Allergies
codeine Allergy (Verified 11/20/24 13:20)
nausea/vomiting
celecoxib Adverse Reaction (Verified 11/20/24 13:20)
stomach pains
Vital Signs and Labs
-
Vital Signs and Labs:
Vital Signs
Temp Pulse Resp BP Pulse Ox
36.4 C 62 16 113/70 98
11/29/24 12:48 11/29/24 12:00 11/29/24 12:00 11/29/24 12:00 11/29/24 12:53
Lab Results
11/28/24 06:13
11/28/24 06:13
PT 17.0 Sec (11.4-14.6) H 11/20/24 22:28
INR 1.35 11/20/24 22:28
APTT 49.3 Sec (23.4-35.0) H 11/20/24 22:28
Sodium 138 mmol/L (135-145) 11/28/24 06:13
Potassium 3.7 mmol/L (3.5-5.1) 11/28/24 06:13
BUN 30 mg/dl (7-17) H 11/28/24 06:13
Glucose 86 mg/dl (70-99) 11/28/24 06:13
Calcium 8.3 mg/dl (8.4-10.2) L 11/28/24 06:13
Phosphorus 3.5 mg/dl (2.5-4.5) 11/20/24 13:32
Vitamin B12 908 pg/ml (414-580) 11/21/24 11:09
Medications
-
Medications:
Generic Name Dose Route Start Last Admin
Trade Name Freq PRN Reason Stop Dose Admin
Acetaminophen 650 mg 11/20/24 20:59
Acetaminophen 325 Mg Tablet PO 12/18/24 20:58
Q6HPRN PRN
mild pain/ fever>100.5F
Amiodarone HCl 200 mg 11/21/24 08:00 11/29/24 09:26
Amiodarone 200 Mg Tablet PO 12/19/24 07:59 200 mg
DAILY CHAO Administration
Apixaban 5 mg 11/20/24 20:59 11/29/24 09:25
Apixaban (Eliquis) 5 Mg Tablet PO 12/18/24 20:58 Not Given
On Hold: 11/29/24 08:56 BID CHAO
Bisacodyl 10 mg 11/24/24 09:28 11/26/24 10:04
Bisacodyl 10 Mg Rectal Suppository RECTAL 12/22/24 09:27 10 mg
[id number] PRN Administration
constipation
Dextrose 12.5 grams 11/23/24 08:00 11/24/24 07:52
Dextrose 50% (0.5 Grams/Ml) 50 Ml Syringe IV 12/21/24 07:59 12.5 grams
[id number] PRN Administration
hypoglycemia
Protocol
Emollient Ointment 0 applic 11/22/24 08:00 11/29/24 09:26
Petrolatum/Mineral Oil (Hydrophor) Oint 100 Gram TOPICAL 12/20/24 07:59 1 applic
DAILY CHAO Administration
Furosemide 20 mg 11/26/24 08:00 11/29/24 09:28
Furosemide 20 Mg Tablet PO 12/24/24 07:59 20 mg
DAILY CHAO Administration
Glucagon 1 mg 11/23/24 08:00
Glucagon 1 Mg Vial IM 12/21/24 07:59
PRN PRN
hypoglycemia - no IV access
Protocol
Levothyroxine Sodium 137 mcg 11/21/24 06:00 11/29/24 06:15
Levothyroxine 137 Mcg Tablet PO 12/19/24 05:59 137 mcg
DAILY@0600 CHAO Administration
Lidocaine 2 patch 11/21/24 11:30 11/29/24 09:28
Lidocaine 4% Topical Patch TOPICAL 12/19/24 11:29 Not Given
DAILY CHAO
Metoprolol Succinate 75 mg 11/25/24 20:00 11/29/24 09:28
Metoprolol 25 Mg Extended Release Tablet PO 12/23/24 19:59 75 mg
BID CHAO Administration
Miconazole Nitrate 0 applic 11/21/24 00:45 11/28/24 07:55
Miconazole Powder Bottle TOPICAL 12/19/24 00:44 1 applic
BIDPRN PRN Administration
groin
Midodrine 5 mg 11/22/24 07:10 11/27/24 09:08
Midodrine 5 Mg Tablet PO 12/20/24 07:59 5 mg
TID@0800,1300,1800 PRN Administration
SBP < 100
Patch Removal 2 patch 11/21/24 20:00 11/28/24 19:23
Remove Lidocaine Patch REMOVE 12/19/24 19:59 Not Given
DAILY@2000 CHAO
Polyethylene Glycol 17 grams 11/24/24 09:28 11/25/24 17:49
Polyethylene Glycol Powder 17 Grams Packet PO 12/22/24 09:27 17 grams
DAILYPRN PRN Administration
constipation
Senna/Docusate Sodium 1 tablet 11/24/24 09:28 11/25/24 17:49
Docusate W/Senna (Ashwini-Colace) Tablet PO 12/22/24 09:27 1 tablet
BIDPRN PRN Administration
constipation
Sodium Chloride 0 flush 11/25/24 11:00
Sodium Chloride 0.9% (Flush) Syringe IV 12/23/24 10:59
PER PROTOCOL CHAO
Thiamine HCl 100 mg 11/24/24 08:00 11/29/24 09:29
Thiamine 100 Mg Tablet PO 12/22/24 07:59 100 mg
DAILY CHAO Administration
Trimethobenzamide HCl 200 mg 11/24/24 10:03 11/25/24 06:35
Trimethobenzamide 200 Mg/2 Ml Vial IM 12/22/24 10:02 200 mg
Q6HPRN PRN Administration
nausea/vomiting
Home Medications
-
Home Medications
apixaban 5 mg tablet (Eliquis) 5 mg PO BID #60 tabs 05/18/17
cyanocobalamin (vitamin B-12) 1,000 mcg tablet 1,000 mcg PO DAILY Supplement 02/19/18
magnesium oxide 500 mg PO DAILY ##30 02/21/18
amiodarone 200 mg tablet (Pacerone) 200 mg PO DAILY Arrhythmia 12/23/18
levothyroxine 137 mcg tablet (Levoxyl) 137 mcg PO DAILY Thyroid 05/03/24
metoprolol succinate 50 mg tablet,extended release 24 hr 75 mg PO BID Blood Pressure 05/03/24
calcium 600 mg (as carbonate)-vit D3 20 mcg (800 unit) chewable tablet (Caltrate plus D) 1 tab PO BID Supplement 11/21/24
furosemide 20 mg tablet 20 mg PO DAILY Fluid Retention/Swelling 11/21/24
lisinopril 10 mg tablet 10 mg PO DAILY Blood Pressure 11/21/24
iasnicniwlzo-eewxlhkq-auqlrr tablet 1 tab PO DAILY Supplement 11/21/24
--- NOTE | 2024-11-29 15:05 | EEGC.RPT ---
Continuous EEG Report
Recording
Start Date of Data Reviewed: 11/29/24
End Date of Data Reviewed: 11/29/24
Done with Video Recording: Yes
Electrocardiogram: Unremarkable
Report
TECHNICAL REMARKS:��This is a technically satisfactory eighteen channel record employing 21 disc electrodes applied according to a measured international 10-20 electrode placement system.��There were no significant technical difficulties.��The study
was done on a [employer] System.
CLINICAL HISTORY:�This is an 79-year-old woman with encephalopathy and autonomic dysfunction. �This study was requested to look for epileptiform activity.
MEDICATIONS: no AED
STUDY DURATION: 28 min, 20 sec
�
REPORT: �At the onset of the EEG, the patient is asleep.. The background activity during wakefulness consists of 9.0-9.5 Hz, persistent, posteriorly dominant, moderate in amplitude, symmetric, and rhythmic activity that is reactive to eye-opening
with admixed 10-15 microvolts delta activity.� Anteriorly, it consists of a mixture of symmetric and rhythmic 5-10 microvolts, 15-20 beta activity, intermittent left hemispheric slowing was present.� Intermittent right frontotemporal slowing was
seen. Stepwise intermittent photic stimulation (1-31 Hz) did not induce any additional abnormalities.� Hyperventilation was not performed.� Drowsiness is characterized by low amplitude mixed frequency activity, decreased eye blinking, and muscle
artifact. N2 sleep was reached.
�
IMPRESSION: �This is an abnormal awake and asleep EEG due to intermittent right frontotemporal slowing indicative of focal cerebral dysfunction nonspecific in terms of etiology.� No epileptiform activity was seen.�
--- NOTE | 2024-11-29 15:23 | CM ---
Addendum entered by Jenna Guerrier 11/29/24 16:30:
Checking with the insurance company, if authorization is started on Wednesday then it is possible for determination to be made on the weekend. CM will follow up to see if this can be started prior to the weekend if patient will be ready.
Original Note:
Following up on Patient. Medical Attending stated that Neurology now wants an LP so her discharge is put on hold, which means that [facility]isai[facility] will have to wait to secure a bed at one of the facilities that the daughter chose and wait to go for
insurance authorization.
Being the end of the week that the patient might be ready, the discharge could move to Wednesday if there is not enough time to obtain insurance authorization. The insurance company is not open over the weekend and would not provide an authorization
over the weekend if started on Wednesday.
PLAN: SNF when ready needing authorization from the insurance.
--- NOTE | 2024-11-29 16:32 | CM ---
Following up on Patient. Medical Attending stated that Neurology now wants an LP so her discharge is put on hold, which means that [facility] will have to wait to secure a bed at one of the facilities that the daughter chose and wait to go for
insurance authorization.
PLAN: SNF when ready needing authorization from the insurance.
[2024-11-29 17:52] LABS: Glucose - Point of Care 128 mg/dl (70-99)
[2024-11-29] MEDS: ELIQUIS 5 MG PO (21:08)
[2024-11-29] MEDS: REMOVE LIDOCAINE PATCH REMOVE (21:10)
[2024-11-29 21:46] LABS: Glucose - Point of Care 136 mg/dl (70-99)
[2024-11-29 22:07] LABS: ANA, IgG Reflex to HEp-2 None Detected (None Detected)
--- NOTE | 2024-11-29 22:45 | PTCARENOTE ---
Assumed care of patient from dayshift RN after change of shift report. Pt is AAOx3. pleasant and agreeable to care. Satting 97% on 2L 02. HR 60bpm, apaced. assessment as documented. call light in reach.
[2024-11-30] VITALS (16 sets, daily range): BP systolic 94–122; BP diastolic 56–84; BMI 38.4
[2024-11-30 06:10] LABS: Hematocrit 34.3 % (37.0-47.0); Hemoglobin 11.0 g/dL (12.0-16.0); Mean Corp Hgb Conc. 32.1 g/dL (33.0-37.0); Mean Corpuscular Volume 108.9 fL (81.0-99.0); Platelet Count 194 10^3/uL (130-400); Red Cell Dist. Width 15.8 % (11.5-14.5)
[2024-11-30 06:26] LABS: Blood Urea Nitrogen 32 mg/dl (7-17); Calcium 8.7 mg/dl (8.4-10.2); Carbon Dioxide 38 mmol/L (22-30); Chloride 103 mmol/L (98-107); Estimated Creatinine Clearance 47 ml/min; Glucose 97 mg/dl (70-99); Potassium 3.7 mmol/L (3.5-5.1); Sodium 142 mmol/L (135-145); eGFR 45.76
[2024-11-30] MEDS: SYNTHROID 137 MCG PO (06:27)
[2024-11-30 08:34] LABS: Glucose - Point of Care 84 mg/dl (70-99)
[2024-11-30] MEDS: LASIX 20 MG PO (08:36)
[2024-11-30] MEDS: ELIQUIS 5 MG PO ×2 (08:37→19:30)
[2024-11-30] MEDS: TOPROL XL PO (08:37)
[2024-11-30] MEDS: PACERONE 200 MG PO (08:38)
[2024-11-30] MEDS: LIDOCAINE 4% PATCH 2 PATCH TOPICAL (08:38)
[2024-11-30] MEDS: VITAMIN B1 100 MG PO (08:38)
[2024-11-30] MEDS: DESENEX/MITRAZOL/ZEASORB 1 APPLIC TOPICAL (08:38)
[2024-11-30] MEDS: HYDROPHOR 1 APPLIC TOPICAL (08:39)
[2024-11-30] MEDS: ATIVAN 0.5 MG PO (10:34)
[2024-11-30 12:40] LABS: Glucose - Point of Care 128 mg/dl (70-99)
--- NOTE | 2024-11-30 13:46 | W.PN.HOSP.TC ---
Today's Communication/Plan
-
negative Neuro workup
DC Planning to SNF
Assessment / Plan
Assessment / Plan
79F with hypertrophic cardiomyopathy, ventricular tachycardia status post ICD, paroxysmal atrial fibrillation, hypertension, obesity, rheumatoid arthritis and hypothyroidism, p/w lethargy. She was found to be hypothermic and hypotensive.
Assessment:
Hypothermia
Shock - resolved
- for unexplained etiology cannot identify the source
- Random cortisol wnl
- Blood culture 03/09 staph epidermidis on admit, repeat BCx 11/22 NGTD. MRSA neg
- Urine culture NGTD
- pt again with hypothermia possibly related to hypotension. Uncontrolled hypothyroidism, adrenal insufficiency (normal cortisol stim test), sepsis ruled out after ID evaluation - no evidence of infections. could be related to malnutrition. continue
thiamine. Could also be neuromuscular disease or autonomic dysfunction.
- Neuro following
- MRI brain with KEYON negative
- EEG negative
- LP planned initially, now cancelled per Neuro
- hypothermia has improved; continue warming measures
- off Levophed; make Midodrine standing with parameters
Metabolic encephalopathy
Chronic hallucinations
Failure to thrive
- suspect due to infection as treated above vs neurodegenerative disease
- pt had previous CTH in 04/2024 that was unremarkable and now MRI brain is performed and negative for acute abnormality.
- Neuro following
- MRI brain with KEYON negative
- EEG negative
- LP planned initially, now cancelled per Neuro
- thiamine; nutrition consult
A. Fib
- continue Eliquis 5 bid
- continue amiodarone 200 daily
- resumed metoprolol
Hypothyroidism
- TSH 2.4
- continue oral levothyroxine
- TSH rechecked was 5.23 and T4 was 1.84
LUE edema
- also mild edema on RUE
- DVT studies negative
chronic lymphedema
with some weeping/wounds
- s/p IV Lasix doses; resume oral Lasix
DVT ppx: Eliquis
Code: Full
Anticipated Discharge: 24 - 48 hours
Subjective/Interval History
-
Date of Service: November 30, 2024
no complaints, eating
Objective Data
-
Labs:
Laboratory Results
11/30/24
05:34
WBC 5.8
Hgb 11.0 L
Hct 34.3 L
Plt Count 194 D
Sodium 142
Potassium 3.7
Chloride 103
Carbon Dioxide 38 H
BUN 32 H
Creatinine 1.2 H
Glucose 97
Calcium 8.7
Vital Signs:
Vital Signs
Temp Pulse Resp BP Pulse Ox
93.8 F L 67 17 99/63 98
11/30/24 07:30 11/30/24 13:32 11/30/24 12:20 11/30/24 13:32 11/30/24 12:20
I&O
11/29/24 11/30/24 12/01/24
06:59 06:59 06:59
Intake Total 320 / 320 180 / 180
Output Total 300 / 300
Balance 20 / 20 180 / 180
Physical Exam
-
General: No Apparent Distress
HEENT: Normocephalic and Atraumatic
Respiratory: Negative Wheezes
Cardiac: Regular Rhythm and S1/S2
GI: Soft and Nontender
Neuro: AO x 3
Psych: Calm
Data Reviewed
-
Total Time Spent with Patient (in minutes): 42
Labs: Labs Reviewed by me
--- NOTE | 2024-11-30 16:14 | CM ---
Addendum entered by Jenna Guerrier 11/30/24 16:43:
Pending Auth: #[id number]
Original Note:
Following up on Patient. Medical Attending said that the LP was cancelled and that patient is ready tomorrow.
[facility] reviewed the list of facilities with the daughter, Vilma. Three facilities are not in network with patient's insurance, and Ric confirm they do not have a bed tomorrow. [facility] 'might' have a bed tomorrow, but [facility] does so she is
fine with this order pending authorization. .
[facility]ONA [facility] called/ sent in the clinical to [facility]/ for [facility] whose Liaison Micaela says there is a bed tomorrow. Micaela is aware there is another choice ahead of their facility 'if' [facility] has a bed, but [facility] doubts this.
Now, we will see if the insurance will return with an Authorization tomorrow.
PLAN: Transfer to SNF tomorrow.
[2024-11-30 17:50] LABS: Glucose - Point of Care 122 mg/dl (70-99)
[2024-11-30] MEDS: REMOVE LIDOCAINE PATCH REMOVE (19:30)
[2024-11-30] MEDS: TOPROL XL 75 MG PO (20:07)
--- NOTE | 2024-11-30 21:30 | PTCARENOTE ---
ax3 very soft voice slow speech- apaced. bp wnl. 96% on 2 liters- lungs diminished. purewick draining yellow
[2024-11-30 21:41] LABS: Glucose - Point of Care 167 mg/dl (70-99)
--- NOTE | 2024-11-30 22:15 | PTCARENOTE ---
attempt to wean oxygen failed- 87% on room air- 2 liters replaced
[2024-12-01] VITALS (7 sets, daily range): BP systolic 101–132; BP diastolic 47–91; BMI 38.5
--- NOTE | 2024-12-01 01:22 | PTCARENOTE ---
temp wnl no doron for gautam flynn- 2 liters to maintain sats- a paced 60's
[2024-12-01] MEDS: SYNTHROID 137 MCG PO (05:20)
[2024-12-01 08:44] LABS: Glucose - Point of Care 108 mg/dl (70-99)
[2024-12-01] MEDS: PACERONE 200 MG PO (08:44)
[2024-12-01] MEDS: ELIQUIS 5 MG PO (08:46)
[2024-12-01] MEDS: HYDROPHOR 1 APPLIC TOPICAL (08:47)
[2024-12-01] MEDS: TOPROL XL PO (08:48)
[2024-12-01] MEDS: VITAMIN B1 100 MG PO (08:48)
[2024-12-01] MEDS: LIDOCAINE 4% PATCH 2 PATCH TOPICAL (08:49)
[2024-12-01] MEDS: LASIX 20 MG PO (08:49)
[2024-12-01 12:38] LABS: Glucose - Point of Care 106 mg/dl (70-99)
--- NOTE | 2024-12-01 14:13 | W.PN.HOSP.TC ---
Today's Communication/Plan
-
dc to SNF
Assessment / Plan
Assessment / Plan
79F with hypertrophic cardiomyopathy, ventricular tachycardia status post ICD, paroxysmal atrial fibrillation, hypertension, obesity, rheumatoid arthritis and hypothyroidism, p/w lethargy. She was found to be hypothermic and hypotensive.
Assessment:
Hypothermia
Shock - resolved
- for unexplained etiology cannot identify the source
- Random cortisol wnl
- Blood culture / staph epidermidis on admit, repeat BCx 11/22 NGTD. MRSA neg
- Urine culture NGTD
- pt again with hypothermia possibly related to hypotension. Uncontrolled hypothyroidism, adrenal insufficiency (normal cortisol stim test), sepsis ruled out after ID evaluation - no evidence of infections. could be related to malnutrition. continue
thiamine. Could also be neuromuscular disease or autonomic dysfunction.
- Neuro following
- MRI brain with KEYON negative
- EEG negative
- LP planned initially, now cancelled per Neuro
- hypothermia has improved; continue warming measures
- off Levophed; continue standing Midodrine
Metabolic encephalopathy
Chronic hallucinations
Failure to thrive
- suspect due to infection as treated above vs neurodegenerative disease
- pt had previous CTH in 04/2024 that was unremarkable and now MRI brain is performed and negative for acute abnormality.
- Neuro following
- MRI brain with KEYON negative
- EEG negative
- LP planned initially, now cancelled per Neuro
- thiamine; nutrition consult
A. Fib
- continue Eliquis 5 bid
- continue amiodarone 200 daily
- resumed metoprolol
Hypothyroidism
- TSH 2.4
- continue oral levothyroxine
- TSH rechecked was 5.23 and T4 was 1.84
LUE edema
- also mild edema on RUE
- DVT studies negative
chronic lymphedema
with some weeping/wounds
- s/p IV Lasix doses; resume oral Lasix
DVT ppx: Eliquis
Code: Full
More than 30 minutes spent in discharge including
Final examination of the patient
Summarizing hospital stay
Instructions for continuing care to all relevant caregivers
Preparation of discharge records, prescriptions, and referral forms
Total time spent (in minutes): 41
Anticipated Discharge: Today
Subjective/Interval History
-
Date of Service: December 01, 2024
resting comfortably today
no new complaints
Objective Data
-
Vital Signs:
Vital Signs
Temp Pulse Resp BP Pulse Ox
97.5 F 60 12 139/80 96
12/01/24 08:26 12/01/24 12:30 12/01/24 12:00 12/01/24 12:30 12/01/24 08:00
I&O
11/30/24 12/01/24 12/02/24
06:59 06:59 06:59
Intake Total 320 / 320 360 / 360
Output Total 300 / 300 300 / 300
Balance 20 / 20 60 / 60
Physical Exam
-
General: No Apparent Distress
HEENT: Normocephalic and Atraumatic
Respiratory: Negative Wheezes
Cardiac: Regular Rhythm and S1/S2
GI: Soft
Neuro: AO x 3
Psych: Calm
Data Reviewed
-
Total Time Spent with Patient (in minutes): 45
Labs: Labs Reviewed by me
--- NOTE | 2024-12-01 14:20 | W.DCSUMMARY ---
Discharge Summary
Discharge Data
Date of Admission: 11/20/24
Date of Discharge: 12/01/24
-
Pending Results: No
Hospital Course
79 y/o F, hx of Afib, hypothyroidism presented to on 11/20 with hypothermia and hypotension/shock requiring ICU admission, Lita hugger and pressors. Her infectious workup was negative and ID evaluated, stopping antibiotics. Endocrine workup was
negative. She was transitioned to Midodrine. Lisinopril was stopped. She was evaluated by Neurology who felt patient had an autonomic dysfunction. Neuro-imaging was negative. She was discharged to SNF on 12/01/24 with orders to maintain normothermia
with warming measures as capable. Family is considering intermediate care options for patient after Skilled rehab.
Discharge Plan
-
Patient Disposition: Jail/SNF
Discharge Diagnosis/Procedures: autonomic dysfunction (hypotension, hypothermia)
Condition: Fair
Diet: Regular
Activity: As tolerated
Bathing Restrictions: None
Other Services: PT and OT
Activity Restrictions/Additional Instructions:
Wound Care Instructions
R leg: clean wiht saline, apply adaptic then silicone foam daily and prn drainage
L leg: clean with saline, silicone foam change q other day and prn drainage. Sacrum and gluteal skin folds: after washing with soap and water apply dusting of fungal powder then blot with skin prep and sacral silicone foam change q 2-3 days and prn
soilage.
Fungal powder to groin skin folds bid
mineral oil for dry skin on legs daily
Resume compression stockings daily, can remove at bedtime
leg elevation when sitting
Follow up at wound care center call for an appointment.
Referrals:
Jp Mccabe MD [Family Provider, Internal Medicine]
Prescriptions:
New
midodrine 5 mg Tablet
5 mg PO TID@0800,1300,1800 Qty: 90 0RF
thiamine mononitrate (vit B1) 100 mg Tablet
100 mg PO DAILY Qty: 100 0RF
Continued
Eliquis 5 MG tablet
5 mg PO BID Qty: 60 11RF
cyanocobalamin (vitamin B-12) 1,000 MCG tablet
1,000 mcg PO DAILY
magnesium oxide 500 MG tablet
500 mg PO DAILY Qty: 30 3RF
amiodarone [Pacerone] 200 MG tablet
200 mg PO DAILY
levothyroxine [Levoxyl] 137 mcg Tablet
137 mcg PO DAILY
metoprolol succinate 50 MG tablet extended release 24 hr
75 mg PO BID
Rx Instructions:
take with 25mg for total of 75mg
furosemide 20 mg Tablet
20 mg PO DAILY
gubgeofjiacw-hubsxycw-dqtipv Tablet
1 tab PO DAILY
Caltrate 600 plus D 600 mg-20 mcg (800 unit) Tablet,Chewable
1 tab PO BID
Discontinued
lisinopril 10 mg Tablet
10 mg PO DAILY
Discharge Orders:
Discharge Patient (As Directed); Ordered 12/01/24
Ordered By: Rene Moon
Discharge Date and Time
Print Language: BURKINAN
[2024-12-01] MEDS: PREVNAR 20 0.5 ML IM (14:47)
--- NOTE | 2024-12-01 15:06 | PTCARENOTE ---
Pt for DC to [facility], report called to MELODY Austin removed. Glasses , slippers jo and well cleaner in pt belonging bag sent with pt.
--- NOTE | 2024-12-01 15:19 | CM ---
Following up on Patient. [facility] confirmed there is a bed at [facility] so cancelled [facility] so now [facility] is waiting for Auth.
ALONA [facility] rec'd the call from [facility] then had to change the facility to [facility] & this was approved.
Auth: #[id number]
Days: 12/01 to 12/05
Level: SNF
NRD: 12/05 to Darleen Dupree via
Report: #[phone]
Fax: #[phone]
Per request of Medical Attending, asked if [facility] has warming blankets and they do not, they will try to increase her body temp if low, but otherwise if it fails then return to the hospital.
Auth given to [facility] ([facility]) and transport arranged for 3pm. Dtr aware and IMM completed. Dtr aware that the low body temperature could be a problem so Dtr is going to bring more blankets.
PLAN: SNF to [facility]
--- NOTE | 2024-12-01 15:36 | PTCARENOTE ---
Pt left via ambulance with belongings without incident
[2024-12-03 06:13] LABS: Albumin 2.20 g/dL (3.75-5.01); SPEP IFE Reflex IFE Done; Total Protein-Electrophoresis 5.1 g/dL (6.3-8.2)
== END 2024-12-01 15:36 | DRG 73 ==
LOC: IMU 20:32
PROVIDERS: Emergency Medicine; Internal Medicine; Nurse Practitioner Primary Care; ADMITTING PHYSICIAN Internal Medicine; ATTENDING PHYSICIAN Internal Medicine; CONSULT PHYSICIAN Internal Medicine; CONSULT PHYSICIAN Psychiatry & Neurology Neurology; EMERGENCY PHYSICIAN Emergency Medicine; FAMILY PHYSICIAN Internal Medicine; OTHER PHYSICIAN Internal Medicine Infectious Disease
DX: G90.9 Disorder of the autonomic nervous system, unspecified (principal); G93.41 Metabolic encephalopathy; I42.1 Obstructive hypertrophic cardiomyopathy; I47.20 Ventricular tachycardia, unspecified; R57.9 Shock, unspecified; L97.821 Non-pressure chronic ulcer of other part of left lower leg limited to breakdown of skin; L97.811 Non-pressure chronic ulcer of other part of right lower leg limited to breakdown of skin; Z66 Do not resuscitate; I48.0 Paroxysmal atrial fibrillation; M06.9 Rheumatoid arthritis, unspecified; E66.813 Obesity, class 3; I89.0 Lymphedema, not elsewhere classified; R62.7 Adult failure to thrive; R68.0 Hypothermia, not associated with low environmental temperature; E03.9 Hypothyroidism, unspecified; I87.2 Venous insufficiency (chronic) (peripheral); E86.0 Dehydration; D69.6 Thrombocytopenia, unspecified; M48.061 Spinal stenosis, lumbar region without neurogenic claudication; M48.02 Spinal stenosis, cervical region; M81.0 Age-related osteoporosis without current pathological fracture; E53.8 Deficiency of other specified B group vitamins; E78.00 Pure hypercholesterolemia, unspecified; G89.29 Other chronic pain; N18.9 Chronic kidney disease, unspecified; I12.9 Hypertensive chronic kidney disease with stage 1 through stage 4 chronic kidney disease, or unspecified chronic kidney disease; Z95.810 Presence of automatic (implantable) cardiac defibrillator; Z88.5 Allergy status to narcotic agent; Z79.01 Long term (current) use of anticoagulants; Z79.890 Hormone replacement therapy; Z79.899 Other long term (current) drug therapy; Z96.653 Presence of artificial knee joint, bilateral; Z87.891 Personal history of nicotine dependence; Z68.38 Body mass index [BMI] 38.0-38.9, adult
CPT/HCPCS: 70551; 70553; 71045; 71260; 72141; 74177; 74230; 80048; 80053; 80202; 81003; 81015; 82164; 82306; 82533; 82550; 82607; 82746; 82784; 82805; 82962; 83605; 83735; 84100; 84155; 84165; 84439; 84443; 85025; 85027; 85610; 85652; 85730; 86038; 86334; 87040; 87070; 87086; 87154; 87205; 87502; 92526; 92610; 92611; 93005; 93306; 93970; 95816; 96360; 96361; 97110; 97163; 97167; 97530; 97535; 99291; A9575; Q9967

== ENCOUNTER → 2024-12-04 16:18 | Outpatient (REF) | payer OTHER, MEDICARE, SELFPAY ==
[2024-12-04 17:23] LABS: Hematocrit 36.0 % (37.0-47.0); Hemoglobin 11.1 g/dL (12.0-16.0); Mean Corp Hgb Conc. 30.8 g/dL (33.0-37.0); Mean Corpuscular Volume 111.1 fL (81.0-99.0); Nucleated Red Blood Cells % 0 %; Platelet Count 309 10^3/uL (130-400); Red Cell Dist. Width 15.7 % (11.5-14.5)
[2024-12-04 17:31] LABS: Calcium 8.5 mg/dl (8.4-10.2); Chloride 98 mmol/L (98-107); Glucose 162 mg/dl (70-99); Potassium 3.7 mmol/L (3.5-5.1); Sodium 139 mmol/L (135-145); eGFR 41.57
[2024-12-04 18:01] LABS: Blood Urea Nitrogen 31 mg/dl (7-17); Carbon Dioxide 40 mmol/L (22-30)
== END ==
LOC: OLABP 16:18
PROVIDERS: ATTENDING PHYSICIAN Family Medicine
DX: I95.1 Orthostatic hypotension (principal); G90.9 Disorder of the autonomic nervous system, unspecified; T68.XXXD Hypothermia, subsequent encounter; E03.9 Hypothyroidism, unspecified; I48.0 Paroxysmal atrial fibrillation
CPT/HCPCS: 36415; 80048; 85025

== ENCOUNTER → 2024-12-13 11:52 | Outpatient (REF) | payer OTHER, MEDICARE, SELFPAY ==
[2024-12-13 13:24] LABS: ALT (SGPT) 36 U/L (0-35); AST (SGOT) 39 U/L (14-36); Albumin 2.6 g/dl (3.5-5.0); Alkaline Phosphatase 91 U/L (38-126); Blood Urea Nitrogen 31 mg/dl (7-17); Calcium 8.3 mg/dl (8.4-10.2); Carbon Dioxide 34 mmol/L (22-30); Chloride 105 mmol/L (98-107); Glucose 90 mg/dl (70-99); Potassium 4.6 mmol/L (3.5-5.1); Sodium 138 mmol/L (135-145); Total Protein 5.3 g/dl (6.3-8.2); eGFR 35.01
== END ==
LOC: OLABP 11:52
PROVIDERS: ATTENDING PHYSICIAN Family Medicine
DX: I48.0 Paroxysmal atrial fibrillation (principal); I95.1 Orthostatic hypotension; G90.9 Disorder of the autonomic nervous system, unspecified; E03.9 Hypothyroidism, unspecified; T68.XXXD Hypothermia, subsequent encounter
CPT/HCPCS: 36415; 80053

== ENCOUNTER → 2024-12-19 10:55 | Outpatient (REF) | payer OTHER, MEDICARE, SELFPAY ==
[2024-12-19 11:27] LABS: Blood Urea Nitrogen 39 mg/dl (7-17); Calcium 8.8 mg/dl (8.4-10.2); Carbon Dioxide 32 mmol/L (22-30); Chloride 104 mmol/L (98-107); Glucose 79 mg/dl (70-99); Potassium 4.6 mmol/L (3.5-5.1); Sodium 139 mmol/L (135-145); eGFR 32.40
== END ==
LOC: OLABP 10:55
PROVIDERS: ATTENDING PHYSICIAN Family Medicine
DX: G90.9 Disorder of the autonomic nervous system, unspecified (principal); T68.XXXD Hypothermia, subsequent encounter; I95.1 Orthostatic hypotension; E03.9 Hypothyroidism, unspecified; I48.0 Paroxysmal atrial fibrillation
CPT/HCPCS: 36415; 80048

== ENCOUNTER 2025-01-10 18:48 | Inpatient (IN) | payer MEDICARE, SELFPAY ==
[2025-01-10] VITALS (43 sets, daily range): BP systolic 79–114; BP diastolic 32–79; BMI 36.9
[2025-01-10 13:32] LABS: Hematocrit 31.2 % (37.0-47.0); Hemoglobin 10.0 g/dL (12.0-16.0); Mean Corp Hgb Conc. 32.1 g/dL (33.0-37.0); Mean Corpuscular Volume 109.9 fL (81.0-99.0); Nucleated Red Blood Cells % 0 %; Platelet Count 180 10^3/uL (130-400); Red Cell Dist. Width 17.9 % (11.5-14.5)
[2025-01-10 13:46] LABS: INR 1.82; PT 21.5 Sec (11.4-14.6)
[2025-01-10 13:47] LABS: ALT (SGPT) 26 U/L (0-35); APTT 57.2 Sec (23.4-35.0); AST (SGOT) 30 U/L (14-36); Albumin 3.1 g/dl (3.5-5.0); Alkaline Phosphatase 116 U/L (38-126); Blood Urea Nitrogen 60 mg/dl (7-17); Calcium 8.9 mg/dl (8.4-10.2); Carbon Dioxide 31 mmol/L (22-30); Chloride 106 mmol/L (98-107); Glucose 74 mg/dl (70-99); Potassium 4.2 mmol/L (3.5-5.1); Sodium 142 mmol/L (135-145); Total Protein 6.1 g/dl (6.3-8.2); eGFR 22.11
--- NOTE | 2025-01-10 15:42 | ED.GENMED ---
History of Present Illness
General
Chief Complaint: Rectal Bleeding
Time Seen by Provider: 01/10/25 15:17
History of Present Illness
History of Present Illness:
79-year-old female with history of A-fib on Eliquis, diabetes, recent diagnosis of autonomic dysfunction with hypothermia and hypotension presenting to the emergency department with low temperature, low blood pressure, concern of GI bleed. Patient
arrives with daughter. Notes recent hospital admission about 6 weeks ago. Patient had been admitted from 11/20 to 12/01 for hypothermia and hypotension with concern for septic shock. No infectious etiology detected, and patient was determined to
have autonomic dysfunction. Patient started on midodrine as needed for low blood pressure. She had been discharged to short-term group home facility, and has been home for the past 2 weeks. Daughter notes that she has been having GI bleed
for the past week and a half. Does note history of hemorrhoids, however there is an increased amount of blood in the toilet bowl. Additionally today, patient's blood pressure has been low and she feels cold which prompted her to bring her to the
hospital. Patient herself denies chest pain or difficulty breathing. She denies any abdominal pain. Daughter does note 2 recent falls, however no injuries from the fall. She notes that her mental status has been at baseline. Patient denies
additional acute medical complaints
Past History
Past History
ED Past Medical History: Arrthythmia (V. tach), HTN, Hypercholesterolemia, Hypothyroidism and Other (RA, colon Polyps)
ED Past Surgical History: Cardiac (Pacemaker/defibrillator), Cholecystectomy, Gynecological (Hysterectomy), Orthopedic (bilateral knee replacements) and Other (noncontributory )
Social History
Tobacco: Former smoker (quit 20 years ago)
Alcohol: None
Drug: None
Personal:
Living: with family
Employment: Retired
Family History
Family History: Other (n/c)
Phy Exam
Physical Exam
Physical Exam:
General: Well-appearing, no clinical signs of dehydration, nontoxic and in no acute distress
HEENT: protecting airway
Neck: appears supple
CV: Normal heart rate, regular rhythm
Resp: No accessory muscle use, no increased work of breathing, lungs clear to auscultation bilaterally
Abd: Soft and non-distended, no tenderness to palpation
Extremities: Chronic swelling to lower extremities, symmetric.
Neuro: alert, no focal neurologic deficit
: deferred
Rectal: Blood per rectum
Psych: Normal affect
Skin: Intact
Course
Orders/Labs/Results
Orders:
Orders
01/10/25 13:19
Type+Screen Urgent
Complete Blood Count/With Diff Urgent
Comprehensive Metabolic Panel Urgent
Creatine Phosphokinase Urgent
Comment: ADD ON
PT/INR [Prothrombin Time] Urgent
PTT Urgent
01/10/25 Dinner
Clear Liquid
At Your Request: Full Participation
01/10/25 15:37
0.9% Sodium Chloride 1000 ml [Nss] 1,000 ml IV BOLUS
01/10/25 15:45
Electrocardiogram (*1) Urgent
Reason for Study: Other
Other Reason for Exam: GI bleed
EKG- Treatment ONCE
01/10/25 15:57
Blood Culture Q30M
HEATHER Source: Blood/Venous
Specimen Description:
Blood Culture Q30M
HEATHER Source: Blood/Venous
Specimen Description:
01/10/25 17:59
Lactic Acid Q4H
Comment: CANCEL 2nd LACTIC ACID IF 1st LACTIC ACID IS LESS THAN 2
01/10/25 18:04
Admit/Transfer Patient As Directed
Co-Sign Provider:
Level of Care: Inpatient admission
Assign to:: IMU- Intermediate Care
Physician / Group: Hospitalist
Diagnosis: Sepsis
Reason for Hospitalization: Sepsis
Expected length of stay greater than two midnights?: Yes
ELOS- Estimated Length of Stay in days: 2
I certify the patient meets the requirements for IP care: Yes
01/10/25 18:05
PRN Pain Medication Management As Directed
May give lesser potent ordered pain med per pt: Yes
preference::
Protocol:: Medication orders for pain may be administered in a
manner that supports deferring to patient preference
when the pt is:
- Requesting an ordered lesser potent pain medication.
Least to most potent pain medications are defined
as: acetaminophen < NSAID < tramadol < opioids
(morphine, oxycodone, hydromorphone).
- Requesting a lesser dose of the same medication IF
ORDERED.
- Requesting a less intrusive route of administration
if both routes are prescribed by the provider (PO <
IV).
01/10/25 18:06
Code Status As Directed
Resuscitation Status: Full Code
01/10/25 19:44
0.9% Sodium Chloride 1000 ml [Nss] 1,000 ml IV 125 mls/hr
0.9% Sodium Chloride 1000 ml [Nss] 1,000 ml IV BOLUS
VANCOMYCIN Pharmacy to Dose [VANCOCIN Pharmacy to Dose] 1 each Pharmacy To Prepare [Call Pharmacy To Prepare] 0 ml IV PER PROTOCOL
01/10/25 19:44
CT Abd/pel Without Iv Or Oral Urgent
Comment:
Reason For Exam: sepsis
GASTROINTESTINAL CONSULT Routine
Consulting Provider: Candy Sanchez
Was physician already notified: Yes
INFECTIOUS DISEASE CONSULT Routine
Consulting Provider: Kaleb Tran
Was physician already notified: Yes
Urinalysis Reflex To Culture Urgent
Activity As Directed
Activity Level: With Assistance
Bladder Scan As Directed
Follow Bladder Retention/Intermittent Cath Algorithm?: Yes
PRN if no void in __ hours: 6
Frequency: Per Retention Algorithm
If Bladder Scan Result >: 400
then:: Straight cath
INT (Intravenous Needle Therapy) As Directed
Comment: Place 2 IV catheters of the largest bore possible until stable
Intake/ Output As Directed
Frequency: Per unit guidelines
Pneumatic Compression Sleeves As Directed
Type: Knee high
Straight Cath As Directed
Frequency: Per Retention Algorithm
Additional Instructions: straight cath as needed per acute urinary retention algorithm for 24 hrs
Additional Instructions: for bladder scan greater than 400 mL
Vital Signs As Directed
Frequency: Per unit guidelines
DX Deep Vein Thrombosis Video Routine
01/10/25 20:00
Calcium Carbonate/Vitamin D3 [Oscal 500 + D] 500 mg PO BID
Midodrine [ProAmatine] 5 mg PO TID@0800,1300,1800
Pantoprazole [Protonix IV] 40 mg IV BID
Piperacillin/Tazo 2.25 Gram [Zosyn] 2.25 grams in 50 ml IV Q6H
01/11/25 06:00
Complete Blood Count/With Diff IN AM
Comprehensive Metabolic Panel IN AM
Cortisol, Random IN AM
Levothyroxine [Synthroid] 137 mcg PO DAILY@0600
01/11/25 08:00
Amiodarone [Pacerone] 200 mg PO DAILY
Cyanocobalamin [Vitamin B-12] 1,000 mcg PO DAILY
Magnesium Oxide 400 mg PO DAILY
Multivitamin [Theragran] 1 tablet PO DAILY
Thiamine HCl [Vitamin B1] 100 mg PO DAILY
Abnormal Lab Results
01/10/25
13:19
RBC 2.84 L 10^6/uL
(4.20-5.40)
Hgb 10.0 L g/dL
(12.0-16.0)
Hct 31.2 L %
(37.0-47.0)
MCV 109.9 H fL
(81.0-99.0)
MCH 35.2 H pg
(27.0-31.0)
MCHC 32.1 L g/dL
(33.0-37.0)
RDW 17.9 H %
(11.5-14.5)
Absolute Monos (auto) 0.7 H 10^3/uL
(0.1-0.6)
Lymphocytes % 16.4 L %
(20.5-51.1)
PT 21.5 H Sec
(11.4-14.6)
APTT 57.2 H Sec
(23.4-35.0)
Carbon Dioxide 31 H mmol/L
(22-30)
BUN 60 H mg/dl
(7-17)
Creatinine 2.2 H mg/dL
(0.6-1.0)
Creatine Kinase < 20 L U/L
(30-135)
Total Protein 6.1 L g/dl
(6.3-8.2)
Albumin 3.1 L g/dl
(3.5-5.0)
01/10/25 13:19
01/10/25 13:19
Vital Signs
Initial and Last Documented VS:
Initial Vital Signs
Pulse Resp BP Pulse Ox
67 20 98/68 97
01/10/25 13:08 01/10/25 13:08 01/10/25 13:08 01/10/25 13:08
Last Documented Vital Signs
Temp Pulse Resp BP Pulse Ox
95.5 F L 71 17 114/41 91
01/10/25 20:12 01/10/25 22:20 01/10/25 22:20 01/10/25 22:20 01/10/25 22:20
MDM/Problems Addressed
MDM/Problems Addressed:
79-year-old female with history of A-fib on Eliquis, diabetes, recent diagnosis of autonomic dysfunction presenting for low blood pressure, low temperature, and concern for GI bleed. Vital signs on arrival are significant for hypotension and
hypothermia.
On exam, patient is resting comfortably, no acute distress. Daughter notes that the hypothermia and the hypotension had been improving after recent hospitalization, however is now back, unclear why. Patient did get midodrine prior to arrival,
which daughter was instructed to give if the systolic less than 120. She notes that systolic at home was in the 80s. Patient herself without significant acute complaints, other than the rectal bleeding which has been ongoing for a week and a half.
Patient does have blood per rectum, however no significant hemorrhage at this time, without strong suspicion for arterial etiology of GI bleed. Patient does have a lot of external hemorrhoids, which could be contributing to the bleed, with
anticoagulation status. Labs obtained prior to my assessment, mild anemia without present indication for transfusion. Patient also with SNOW, which could be secondary to GI bleed, volume depletion, dehydration. Starting patient on IV fluids.
Unable to obtain CT imaging of the abdomen given GFR less than 30. Low utility without contrast. No leukocytosis. Will send lactic acid and cultures, however at this time given recent admission for similar presentation, without strong suspicion
for infection. However, given patient's anticoagulation status, abnormal vital signs, and signs of GI bleed with SNOW, feel patient warrants admission for continued monitoring and resuscitation
*Pulse Oximetry
SaO2: 97
Oxygen Mode of Delivery: Room air
Patient hypoxic: no
*Critical Care Note
Total Time (30-74mins, 75-104mins- exclusive of procedures): Not Applicable
ED Attending Note
-
Portions of this chart may have been created with voice recognition software.� Occasional wrong word or��sound alike� substitutions may have occurred due to the inherent limitations of voice recognition software.
Discharge Plan
Departure
Patient Disposition: Admit
Date of Disposition: 01/10/25
Time of Disposition: 16:39
Presentation/result/management discussed w/ accepting MD/DO: Hospitalist
Patient with high blood pressure during this ER visit?: No
Condition: Fair
Discharge Problem:
Hypothermia, GI bleed, SNOW (acute kidney injury)
Interventions
Interventions:
*Risk Screen - Suicide Last Done: 01/10/25 13:08
*General Assessment Last Done: 01/10/25 13:08
*Neglect/Abuse Screening Last Done: 01/10/25 17:00
*ED- Fall Risk Assessment Last Done: 01/10/25 17:00
*ED COVID-19 Vaccine History Last Done: 01/10/25 19:36
*ED Influenza Vaccine History Last Done: 01/10/25 19:36
*Nursing Disposition Last Done: 01/10/25 19:36
ON-Yhctew-Kirfaywsgm Assessment Last Done: 01/10/25 17:48
ED- Cardiac Assessment Last Done: 01/10/25 16:00
ED- Pulmonary Assessment Last Done: 01/10/25 16:00
Discharge Date and Time
Discharge Date/Time: 01/10/25 19:36
[2025-01-10] MEDS: NSS 1000 IV ×3 (15:56→21:53)
--- NOTE | 2025-01-10 16:50 | HPS.HSE ---
Addendum entered and electronically signed by Vidal Meredith MD 01/11/25 13:46:
NAD
Scleral Anicteric
MMM
No JVD
CTABL
RRR, S1/S2
Soft, NT, ND, BS+
B/l le chronic venous stasis
Wound on the LLE - appears healing, no purulence
Warm, Dry
AAOx3
Sepsis
Potential intra-abdominal
Check CT abdomen pelvis
Check UA urine culture
Follow-up blood culture
IV fluids
Maintain MAP greater than 65
Zosyn renally dosed
Consult ID
Hypothermic and hypotension
Potential infection related versus autonomic dysfunction which is a previous diagnosis provide AMA check start a.m. cortisol of less than 8. As not hypoglycemic and sodium in the 140s
Follow-up blood culture
IV antibiotics
Chronic venous insuff
B/l LE
Compression stockings
LLE Wound
Open wound
Wound care
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
IV fluids
Urine studies
Renal bladder ultrasound
Monitor urinary output
Avoid nephrotoxins hypotension
Lower GI bleed
Hemoglobin 10
Transfuse if less than 7
GI consult
Paroxysmal atrial fibrillation
Hold Eliquis
Continue antibiotic
Telemetry
Hypokalemia
Continue levothyroxine
Original Note:
Family Physician
-
Family Physician:
Chief Complaint
-
.
History of Present Illness
79-year-old female with past medical history of A-fib on Eliquis, ventricular tachycardia s/p ICD, hypertension, rheumatoid arthritis, presenting to the ER with low temperature, low blood pressure concern for GI bleed.
Patient had a hospital admission 11/20/2024 - 12/01/2024 with hypothermia/hypotension/shock requiring ICU admission and pressors. Infectious workup was negative, endocrine workup was negative. She was discharged on midodrine. Evaluated by
neurology�likely due to autonomic dysfunction. Neuroimaging was negative. She was home since the past 2 weeks. Patient reports having rectal bleeding for the past 1-1/2-week. She has hemorrhoids, and usually she sees some blood on toilet paper,
but this time she had extensive bright red blood in the toilet bowl every time she uses restroom. Today her blood pressure at home was low, SBP in 80s which prompted her to be seen at the ER. Her daughter gave her a dose of midodrine before coming
here. Patient denies any chest pain, difficulty breathing, abdominal pain, lightheadedness/dizziness, patient is at her baseline mental status, no history of recent falls.
ED course�initial vital signs 98/68, heart rate�67, RR�20. Hemoglobin�10, BUN/creatinine�60/2.2.
Patient was given 1 unit bolus IV fluids, and was wrapped in Lita hugger.
Medical History
Past Medical History
Past Medical History: Reports Other (V. tach s/p pacemaker, ICD, hypertension, hypercholesterolemia, hypothyroidism rheumatoid arthritis)
Past Surgical History: Reports Other (Pacemaker/defibrillator, cholecystectomy, hysterectomy, bilateral knee replacement)
Social History
Tobacco: Former Smoker (Quit 20 years ago)
Alcohol: None
Drug: None
Personal:
Living: With Family
Employment: Retired
Family History
Family History: Not pertinent
Allergies / Home Medications
Allergies reflects when Allergies were last updated in [facility].
Home Medications with original date entered in [facility]
Allergy/Medication List:
Allergies
Allergy/AdvReac Type Severity Reaction Status Date / Time
codeine Allergy nausea/vomi Verified 01/10/25 13:09
ting
celecoxib AdvReac stomach Verified 01/10/25 13:09
pains
Home Medications
apixaban 5 mg tablet (Eliquis) 5 mg PO BID #60 tabs 05/18/17
cyanocobalamin (vitamin B-12) 1,000 mcg tablet 1,000 mcg PO DAILY Supplement 02/19/18
magnesium oxide 500 mg PO DAILY ##30 02/21/18
amiodarone 200 mg tablet (Pacerone) 200 mg PO DAILY Arrhythmia 12/23/18
levothyroxine 137 mcg tablet (Levoxyl) 137 mcg PO DAILY Thyroid 05/03/24
calcium 600 mg (as carbonate)-vit D3 20 mcg (800 unit) chewable tablet (Caltrate plus D) 1 tab PO BID Supplement 11/21/24
furosemide 20 mg tablet 20 mg PO DAILY Fluid Retention/Swelling 11/21/24
wldcycpguiuy-gldjgxsm-ekxzln tablet 1 tab PO DAILY Supplement 11/21/24
midodrine 5 mg tablet 5 mg PO TID@0800,1300,1800 #90 tabs 12/01/24
thiamine mononitrate (vit B1) 100 mg tablet 100 mg PO DAILY #100 tabs 12/01/24
Review of Systems
-
A 12 point ROS was completed and negative except as noted: Yes
Physical Exam
Vital Signs
Vital Signs
Temp Pulse Resp BP Pulse Ox
93.9 F L 60 13 96/58 99
01/10/25 15:54 01/10/25 16:15 01/10/25 16:15 01/10/25 16:10 01/10/25 16:00
Physical Exam
General: No Apparent Distress and Conversant
HEENT: NormoCephalic and Atraumatic
Respiratory: Clear
Cardiac: S1/S2 and Regular Rhythm
GI: Soft, Non Tender, Non Distended, Normal Bowel Sounds and Other (Per rectal exam-hemorrhoids, Hemoccult positive stools.)
Musculoskeletal: Edema, Left Lower Extremity and Edema, Right Lower Extremity
Skin: Warm, Dry and Other (Open wound, non purulent, on left lower extremity, covered with foam dressing.)
Neuro: Awake, Alert, Oriented and AO x 3
Psych: Calm
Laboratory Results
-
01/10/25 13:19
01/10/25 13:19
Laboratory Results
PT 21.5 Sec (11.4-14.6) H 01/10/25 13:19
INR 1.82 01/10/25 13:19
APTT 57.2 Sec (23.4-35.0) H 01/10/25 13:19
Total Bilirubin 0.8 mg/dl (0.2-1.3) 01/10/25 13:19
AST 30 U/L (14-36) 01/10/25 13:19
ALT 26 U/L (0-35) 01/10/25 13:19
Alkaline Phosphatase 116 U/L (38-126) 01/10/25 13:19
Impression/Plan
-
IMPRESSION:
79-year-old female with history of A-fib on Eliquis, recent diagnosis of heart dysfunction, hypertension, hypercholesterolemia, chronic anemia presenting to the ER concern for lower GI bleed.
PLAN:
#Sepsis
Patient is hypotensive requiring IV fluids with evidence of endorgan dysfunction (SNOW)
Hypothermic, hypotensive at presentation.
Source unclear as of now
Will check blood cultures
Check UA/urine cultures.
Check lactate
Imaging studies�check chest x-ray, CT abdomen/pelvis.
Start IV fluids
Maintain MAP >65
Start antibiotics�Zosyn (renally dosed), vancomycin
Lita hugger
Admit to IMU
Consulted ID.
Check a.m. cortisol
#Lower GI bleed
Likely from external hemorrhoids
No prior history of colonoscopy
Will consult GI
Hb�10, monitor hemoglobin
Transfuse if there is any acute drop, Hb less than 7.
Patient had some nausea/decreased appetite.
Will keep her on clears for today.
#SNOW
No prior history of CKD
At baseline creatinine at 1.2
Creatinine today at 2.2.
SNOW likely prerenal from hypotension secondary to GI bleed, dehydration.
Start IV fluids
Monitor BMP
Will check bladder scan
Will hold furosemide, DC nephrotoxic meds.
Check CK
#Acute on chronic anemia
Likely multifactorial
Monitor CBC
#Paroxysmal A-fib
Patient is currently in sinus rhythm
Continue amiodarone
Will hold Eliquis
#Hypothyroidism
Continue levothyroxine
#Hypotension
Previous hospital admission, evaluation by neurology-autonomic dysfunction
Started on IV fluids
Continue midodrine
Case discussed with attending�Dr. Vidal Meredith.
DVT prophylaxis�SCDs
Diet�clears
Full code
--- NOTE | 2025-01-10 20:05 | PHA.VAN.IN ---
Assessment
- Assessment
Renal Function: SCR Appears Elevated from baseline (1.2)
Minimum Temperature: 93.9 F rectal 01/10 @ 1545
Concomitant Antimicrobials: piperacillin/tazobactam
Plan
- Plan
Initial / Loading Dose: vanc 2000mg pending administration
Maintenance Regimen: dosing by level
Monitoring: random level 01/11 600
Pharmacokinetics Vancomycin I
- -
Patient Age: 79
Patient Sex: Female
Vancomycin Day #: 1
Indication: Bacteremia
Requesting Provider: Dr. Medina
Pertinent Antimicrobial Allergies:
no pertinent antimicrobial allergies
Height / Weight:
Actual Weight 119.6 kg
IBW in k.3
Adjusted BW in k.4
Pertinent Past Medical History: BMI ~40,
- Vital Signs / Lab Results
Temp Pulse Resp BP Pulse Ox
95.3 F L 73 17 85/39 94
01/10/25 19:36 01/10/25 20:00 01/10/25 20:00 01/10/25 19:52 01/10/25 20:00
Lab Results - Hematology
01/10/25
13:19
WBC 7.9
Lab Results - Chemistry
01/10/25
13:19
BUN 60 H
Creatinine 2.2 H
Albumin 3.1 L
01/10/25
17:59
Lactic Acid 0.7
[2025-01-10] MEDS: PROTONIX IV 40 MG IV (20:33)
--- NOTE | 2025-01-10 20:49 | PTCARENOTE ---
Patient received from the ED. Pt transported via stretcher. Pt able to answer all orientation questions correctly however pt is lethargic and drowsy. NSR occasional v-pacing. Pt 96% on room air. Pt hypotensive BP 85/45 MAP 59. Pt due for CT scan
however did not get at this time due to hypotension. Pt received 1L NSS bolus. Pt was wearing a brief on admission and has severe MASD to groin/buttocks. Red/brown b/l lower legs. Pt oriented to the unit.
[2025-01-10] MEDS: OSCAL 500 + D 500 MG PO (21:09)
--- NOTE | 2025-01-10 21:36 | W.PN.UPDATE ---
Update Note
Progress Note Update
RN reported BP soft 83/54 MAP 50 receiving bolus and received 5mg PO Midodrine. Patient asymptomatic, H&H stable. BP remains low.
2344 Will start Levophed infusion for MAP> 65
BP continuos to be soft, patient slightly lethargic, Awake and conversant. MAP 57-61 HR 70, RA 96%, 20, BS 87, Levophed at 8mcg/min
Will transfer patient to ICU
ICU LICENSED NURSING ASSISTANT, Pay Station Collector made aware
Daughter made aware.
[2025-01-10] MEDS: LEVOPHED 250 IV (21:48)
[2025-01-10 21:58] LABS: Hematocrit 27.3 % (37.0-47.0); Hemoglobin 8.8 g/dL (12.0-16.0)
--- NOTE | 2025-01-10 22:00 | PTCARENOTE ---
Patient remains hypotensive. LORENA Mitchell notified. STAT H&H sent. Hgb 8.8. New orders for Levophed to keep MAP >65. Levo started.
[2025-01-10] MEDS: ZOSYN 50 IV (22:15)
[2025-01-10 22:51] LABS: Glucose - Point of Care 87 mg/dl (70-99)
[2025-01-10 23:25] LABS: Urine Character Clear (Clear)
[2025-01-11] VITALS (71 sets, daily range): BP systolic 69–141; BP diastolic 37–93; BMI 37.3
--- NOTE | 2025-01-11 | W.PN.SEPSIS ---
Sepsis
Vital Signs
Temp Pulse Resp BP Pulse Ox
97.0 F 80 17 104/44 93
01/10/25 23:27 01/10/25 23:46 01/10/25 23:46 01/10/25 23:30 01/10/25 23:46
Physical Exam
Physical Exam:
A focused exam was performed after fluid resuscitation.
Capillary Refill
Bilateral Upper Extremity:
Amanda Time: Less than 3 sec
Bilateral Lower Extremity:
Amanda Time: Less than 3 sec
Pulse Evaluation
Bilateral Radial:
Pulse Evaluation: Present
Bilateral Dorsalis Pedis:
Pulse Evaluation: Present
[2025-01-11 00:13] LABS: Glucose - Point of Care 97 mg/dl (70-99)
[2025-01-11] MEDS: OFIRMEV 100 IV (01:12)
[2025-01-11] MEDS: ZOSYN 50 IV ×4 (01:13→19:53)
[2025-01-11 01:23] LABS: Urine Squamous Cell >30 /LPF (Few)
--- NOTE | 2025-01-11 03:00 | PTCARENOTE ---
Rec'd pt from IMU with increasing pressor demands. Levo titrated up to 10mcg. Vaso ordered if need additional pressor support. Patient pleasant, cooperative and oriented. When woken from sleep, can be initially forgetful but back to baseline once
conversation starts and she is more awake. Generally lethargic overnight. Lita hugger off rectal temp 97.8. No bleeding rectally at this time. Purewick placed. Will monitor.
[2025-01-11 03:01] LABS: Hematocrit 29.6 % (37.0-47.0); Hemoglobin 9.6 g/dL (12.0-16.0); Mean Corp Hgb Conc. 32.4 g/dL (33.0-37.0); Mean Corpuscular Volume 111.7 fL (81.0-99.0); Nucleated Red Blood Cells % 0.3 %; Platelet Count 210 10^3/uL (130-400); Red Cell Dist. Width 18.0 % (11.5-14.5)
[2025-01-11 03:14] LABS: INR 1.67; PT 20.2 Sec (11.4-14.6)
[2025-01-11 03:16] LABS: ALT (SGPT) 27 U/L (0-35); APTT 53.4 Sec (23.4-35.0); AST (SGOT) 35 U/L (14-36); Albumin 2.9 g/dl (3.5-5.0); Alkaline Phosphatase 107 U/L (38-126); Blood Urea Nitrogen 56 mg/dl (7-17); Calcium 8.2 mg/dl (8.4-10.2); Carbon Dioxide 26 mmol/L (22-30); Chloride 110 mmol/L (98-107); Estimated Creatinine Clearance 29 ml/min; Glucose 106 mg/dl (70-99); Magnesium 2.2 mg/dl (1.6-2.3); Potassium 4.3 mmol/L (3.5-5.1); Sodium 143 mmol/L (135-145); Total Protein 6.0 g/dl (6.3-8.2); eGFR 26.36
[2025-01-11 03:47] LABS: Cortisol, Random 16.4 ug/dl
[2025-01-11] MEDS: LEVOPHED 250 IV ×3 (04:08→20:11)
[2025-01-11] MEDS: NSS 1000 IV (04:09)
[2025-01-11] MEDS: SYNTHROID 137 MCG PO (05:16)
--- NOTE | 2025-01-11 07:00 | PTCARENOTE ---
Assumed care 0700 Restraints b/l soft with b/l mitts. on RA. Alf guards x 2 at bedside
--- NOTE | 2025-01-11 07:30 | CON.INTV ---
Consultation
Consultation Request
Date/Time Consultation Requested: 01/11/2025-7 AM
Date/Time Consultation Performed: 01/11/2025- AM
Requesting Provider: Hospitalist
Performing Provider: Dr. Vicente
Reason for Consultation: Sepsis/critical care management
Medical History
-
Chief Complaint: Hypothermia/hypotension
History of Present Illness:
79-year-old former smoking female with history of hypertension, hyperlipidemia, hypothyroid, rheumatoid arthritis, ventricular tachycardia with recent hospitalization for 11 days November 2024 with hypothermia, hypotension and shock requiring ICU
admission with pressors with negative infectious and endocrine workup discharged on midodrine and felt to have autonomic dysfunction presented with hypothermia, hypotension and rectal bleeding possibly from hemorrhoids and continuous improvement intern consulted for
hypotension/pressor management/critical care management 01/11/2025. The patient currently feels improved and denies any shortness of breath, chest pain, chest tightness, chest congestion, productive cough, abdominal pain, nausea, focal weakness or
increased lower extremity swelling.
Past Medical History
Past Medical History: None (Hypertension. Hyperlipidemia. Autonomic dysfunction. Hypothyroid. Rheumatoid arthritis. Ventricular tachycardia/pacemaker/defibrillator. Former smoker. Cholecystectomy. Hysterectomy. Bilateral knee replacement.)
Social History
Tobacco: Former Smoker (Quit 20 years ago h)
Alcohol: None
Drug: None
Personal:
Living: With Family
Occupational Exposures: No known asbestos exposure
Environmental Exposures: No known tuberculosis exposure
Family History
Family History: Reviewed & Not Pertinent
Allergies / Home Medications
Allergies
Allergy/AdvReac Type Severity Reaction Status Date / Time
celecoxib Allergy stomach Verified 01/10/25 21:41
pains
codeine Allergy nausea/vomi Verified 01/10/25 13:09
ting
Home Medications
�Medication �Instructions �Recorded �Confirmed �Last Taken �Type
apixaban 5 mg tablet (Eliquis) 5 mg PO BID #60 tabs 05/18/17 01/10/25 11/17/24 Rx
cyanocobalamin (vitamin B-12) 1,000 mcg PO DAILY Supplement 02/19/18 01/10/25 11/17/24 History
1,000 mcg tablet
magnesium oxide 500 mg PO DAILY ##30 02/21/18 01/10/25 11/17/24 Rx
amiodarone 200 mg tablet (Pacerone) 200 mg PO DAILY Arrhythmia 12/23/18 01/10/25 11/17/24 History
levothyroxine 137 mcg tablet 137 mcg PO DAILY Thyroid 05/03/24 01/10/25 11/17/24 History
(Levoxyl)
calcium 600 mg (as carbonate)-vit 1 tab PO BID Supplement 11/21/24 01/10/25 11/17/24 History
D3 20 mcg (800 unit) chewable
tablet (Caltrate plus D)
furosemide 20 mg tablet 20 mg PO DAILY Fluid 11/21/24 01/10/25 11/17/24 History
Retention/Swelling
rtxruxnvvcfh-xucicvpt-ldoksg tablet 1 tab PO DAILY Supplement 11/21/24 01/10/25 11/17/24 History
midodrine 5 mg tablet 5 mg PO TID@0800,1300,1800 #90 tabs 12/01/24 01/10/25 01/10/25 Rx
thiamine mononitrate (vit B1) 100 100 mg PO DAILY #100 tabs 12/01/24 01/10/25 Unknown Rx
mg tablet
Review of Systems
-
Unable to Obtain full review of systems at this time due to: Other (Per HPI)
Vitals / Labs / Diagnostic Testing
Vital Signs
Temp Pulse Resp BP Pulse Ox
97.4 F 71 16 111/72 94
01/11/25 03:00 01/11/25 06:30 01/11/25 06:30 01/11/25 06:30 01/11/25 06:30
Lab Data
01/11/25 02:35
01/11/25 02:35
Laboratory Results
01/10/25 01/11/25
13:19 02:35
PT 21.5 H 20.2 H
INR 1.82 1.67
APTT 57.2 H 53.4 H
Diagnostic Testing:
Physical Exam
-
Exam:
Well-nourished and well-developed in no apparent distress
HEENT-atraumatic, normocephalic
Neck-supple, no JVD, no bruit
Heart-regular rate and rhythm-no murmurs, rubs or gallops
Chest-clear to auscultation, no wheezes, crackles
Back-no tenderness
Abdomen-soft, nontender, nondistended, no hepatosplenomegaly
Extremities with chronic venous stasis changes, trace edema
Integument-intact, no rashes, lesions or ecchymosis
Neurology-alert and oriented, nonfocal motor and sensory exam
Assessment
-
79-year-old former smoking female with history of hypertension, hyperlipidemia, hypothyroid, rheumatoid arthritis, ventricular tachycardia with recent hospitalization for 11 days November 2024 with hypothermia, hypotension and shock requiring ICU
admission with pressors with negative infectious and endocrine workup discharged on midodrine and felt to have autonomic dysfunction presented with hypothermia, hypotension and rectal bleeding possibly from hemorrhoids and continuous improvement intern consulted for
hypotension/pressor management/critical care management 01/11/2025.
Hypotension requiring pressors
Hypothermia
Lower GI bleed likely from external hemorrhoids
Anemia from acute blood loss-hemoglobin 9.6-macrocytic
SNOW
Paroxysmal atrial fibrillation
Mild hyperglycemia
Relatively low cortisol
Conditions present prior to admission:
Hypertension.
Hyperlipidemia.
Autonomic dysfunction.
Hypothyroid.
Rheumatoid arthritis.
Ventricular tachycardia/pacemaker/defibrillator.
Former smoker.
Cholecystectomy. Hysterectomy. Bilateral knee replacement.
Plan
Admit patient to medical intensive care unit for persistent hypotension despite fluid resuscitation requiring pressors
Supplement oxygen as needed
High flow oxygen if needed
BiPAP if necessary
Intubate and mechanically ventilate if necessary
Aspiration precautions
Nebulizers if needed
Obtain cultures
Empiric antibiotics-consider discontinuing if no obvious source for infection found as hypotension may be noninfectious/sepsis
Consider Infectious disease consultation
Monitor leukocytosis
Reported neurologic workup consistent with autonomic disorder
Midodrine continues
Fluid resuscitation with 30 mL/kg crystalloid-preferably lactated ringer-(less SNOW) with subsequent boluses as needed
Monitor lactate
Follow CVP if possible
Attempt noninvasive bedside tissue perfusion evaluation to see if fluid bolus responsive
Measure pulse pressure and stroke volume variation if patient on ventilator, passively breathing without arrhythmia and with temporary large tidal volume ventilation and if > 13% then likely fluid bolus responsive
If patient active then consider measuring bedside leg lift for 3 minutes and if cardiac output increases or if there is a rise of 2-4 on end-tidal CO2 then fluid bolus
If bedside ultrasound available then measure IVC diameter variation to evaluate for fluid bolus responsiveness
Begin pressors as needed for MAP goal of 65-Norepinephrine first, then Vasopressin and consider Angiotensin II if continues to be hypotensive
Consider methylene blue if available-specific inhibitor of induced nitric oxide synthase iNOS and its downstream enzyme soluble guanylate cyclase-noninferiority study shown to reduce time to vasopressor discontinuation, decreased ICU length of stay,
hospital stay but no change in mortality-published Critical Care 05/18/2022
Somewhat unexplained hypotension with relatively low cortisol level- ACTH stimulation test ordered
If persistently hyperthermic then correcting hyperthermia can decrease pressor requirements, increased chances of reversal of shock and decrease mortality
DVT prophylaxis-on Eliquis
GI prophylaxis-on pantoprazole
Early nutrition if possible
Early mobilization/bedside range of motion
Critical care statement: A total of 65 minutes of critical care time was provided for this patient today. This includes management of unstable vital signs, evaluation of the patient at bedside, reviewing the patient's pertinent medical records
including radiographs, pressor management, microbiology, laboratory evaluations, and discussion with primary team, consultants, pharmacy, nutrition, physical therapy, case management, charge nurse, critical care nursing, and respiratory therapy.
Diagnostic data:
Chest x-ray 11/20/2024-NAD
Chest x-ray 01/11/2025-low lung volumes
CT chest abdomen and pelvis 11/24/2024-small to moderate right pleural effusion, small volume perihepatic ascites
MRI brain 11/30/2024-no acute intracranial abnormalities
Echocardiogram 11/22/2024-EF 55-60%,
Data Reviewed
-
EKG: Report reviewed by me
Radiology: Report reviewed by me
CT Scan: Report reviewed by me
MRI: Report reviewed by me
Medical Tests (Nuc Med, Echo etc): Report reviewed by me
Labs: Labs reviewed by me
Old Records: Reviewed
Critical Care Time (in minutes): 65
--- NOTE | 2025-01-11 08:06 | PTCARENOTE ---
0700 assumed care; On Levophed 10 mcg ; 0.9%NSS 125/hr; AAO x 3 Denies chest discomfort, no nausea, no rectal bleed on RA
Levophed decreased to 8mcg with GOAL MAP 65
[2025-01-11] MEDS: VITAMIN B1 100 MG PO (08:29)
[2025-01-11] MEDS: PROTONIX IV 40 MG IV ×2 (08:29→19:53)
[2025-01-11] MEDS: MAGNESIUM OXIDE 400 MG PO (08:29)
[2025-01-11] MEDS: THERAGRAN 1 TABLET PO (08:30)
[2025-01-11] MEDS: PACERONE 200 MG PO (08:30)
[2025-01-11] MEDS: VITAMIN B-12 1000 MCG PO (08:35)
--- NOTE | 2025-01-11 08:41 | PTCARENOTE ---
LR 500 ml Given
[2025-01-11] MEDS: OSCAL 500 + D 500 MG PO ×2 (08:42→19:53)
[2025-01-11] MEDS: LR 500 IV (08:43)
--- NOTE | 2025-01-11 08:58 | CON.ID ---
Consultation
-
Date/Time Consultation Requested: 01/10/2025 1944
Date/Time Consultation Performed: 01/11/2025 0850
Requesting Provider: Dr. Medina
Performing Provider: Dr. Tran
Reason for Consultation: Clinical sepsis
Chief Complaint / Past History
Chief Complaint
poor appetite
History of Present Illness
Pilar Rojo is an 79-year-old female being evaluated at the request of Dr. Medina regarding clinical sepsis. History is obtained from chart review, along with patient interview.
The patient is known to the Infectious Diseases service, having been seen in mid November, at which time she was treated for hypothermia and hypotension. No infectious etiology was discovered during that admission. She ultimately [facility] where she stayed for approximately 2 weeks, and then was discharged to home approximately 2 weeks ago. Since arriving home, daughter reported that she had had noted blood in the toilet for the past week
and a half.
The patient presents back to the emergency room at [facility] on 01/10/2025 secondary to hypothermia, hypotension and possible GI bleed. In the ER, the patient was found to be hypothermic, with a rectal temperature of 93.9 degrees. She was
not noted to have an elevated white count nor left shift. Blood cultures have been obtained and are currently pending. The patient has been started on empiric antibiotics, and Infectious Diseases is asked to comment upon further antimicrobial
therapy.
Past History
Additional Past Medical History:
P A-fib
HTN
Class III obesity
Rheumatoid arthritis
Hypothyroidism
Hypertrophic cardiomyopathy
Venous insufficiency
LE lymphedema
Additional Past Surgical History:
ICD placement
Cholecystectomy
Hysterectomy
Bilateral knee replacement
Carpal tunnel release surgery
Sinus surgery
Allergy History:
celecoxib Allergy (Verified 01/10/25 21:41)
stomach pains
codeine Allergy (Verified 01/10/25 13:09)
nausea/vomiting
Medications Reviewed: Yes
Current Antibiotics:
Vancomycin
Cefepime
Social History
Tobacco: Former Smoker
Alcohol: None
Drug: None
Employment: Retired
Family History
Family History: Not Pertinent
Review of Systems
Vital Signs
Temp Pulse Resp BP Pulse Ox
97.9 F 73 18 98/54 93
01/11/25 07:48 01/11/25 08:30 01/11/25 08:00 01/11/25 08:30 01/11/25 08:00
Physical Exam
Physical Exam
Constitutional: No Acute Distress, Comfortable, Chronically Ill, Non-toxic and Obese
Head: Normocephalic
Eyes: Pupils Equal, Pupils Round, No Conjunctival Hemorrhage and Sclera Anicteric
Oral: No Thrush and No Ulcers
Cardiovascular: S1/S2; Negative S3/S4
Pulmonary: Clear and Non Labored; Negative Wheezes or Rales
Gastrointestinal: Soft, Non Tender, Non Distended, Normal Bowel Sounds, No Rebound and No Guarding
Genito-Urinary: Negative Suprapubic Tenderness
Extremities: Edema and Venous Insufficiency (Bilateral lower extremities); Negative Erythema
Musculoskeletal: Negative Joint Swelling
Neurological: Awake and Alert
Psychological: Calm
Lab / Diagnostic Study Results
01/11/25 02:35
01/11/25 02:35
Abs Immat Gran (auto) 0.0 10^3/uL (0-0.05) 01/11/25 02:35
Absolute Neuts (auto) 5.3 10^3/uL (1.4-6.5) 01/11/25 02:35
Absolute Lymphs (auto) 1.8 10^3/uL (1.2-3.4) 01/11/25 02:35
Absolute Monos (auto) 0.7 10^3/uL (0.1-0.6) H 01/11/25 02:35
Absolute Basos (auto) 0.0 10^3/uL (0-0.2) 01/11/25 02:35
Immature Gran % 0.5 % (0-0.5) 01/11/25 02:35
Neutrophils % 67.0 % (42.2-75.2) 01/11/25 02:35
Lymphocytes % 22.9 % (20.5-51.1) 01/11/25 02:35
Monocytes % 8.8 % (1.7-9.3) 01/11/25 02:35
Eosinophils % 0.4 % (0-6) 01/11/25 02:35
Basophils % 0.4 % (0-2) 01/11/25 02:35
PT 20.2 Sec (11.4-14.6) H 01/11/25 02:35
INR 1.67 01/11/25 02:35
Lactic Acid Cancelled 01/10/25 23:44
Ur Squamous Epith Cells >30 /LPF (Few) 01/10/25 23:17
Microbiology Results
Micro:
01/10/25 15:57 Blood Culture - Pending
Blood/Venous
01/10/25 15:57 Blood Culture - Pending
Blood/Venous
01/10/25 23:17 Urine Culture - Pending
Urine
Imaging:
01/11/2025 CXR (portable): film is rotated subsegmental atelectatic changes at the right base. No pneumothorax. Please see full dictation for additional detail. Film personally viewed.
Assessment / Plan
Hypotension
- Remains on norepinephrine
Hypothermia; improved
SNOW on CKD
P A-fib
HTN
Class III obesity
Rheumatoid arthritis
Hypothyroidism
Hypertrophic cardiomyopathy
Venous insufficiency
LE lymphedema
Recommendations:
At present, no overt signs of an infectious process.
Can continue with empiric Zosyn for the present, although if blood cultures remain negative over the next 24 hours, and no other signs or symptoms of infection noted, would discontinue further antibiotics.
Monitor white count and temperature curve.
Will follow-up pending blood cultures.
Wean pressors as possible.
Continue with supportive measures.
Urine culture pending, although it does not appear to be a reflex culture and UA without significant WBCs. Would interpret results with significant caution, especially given likely contamination based upon amount of squamous cells recovered.
Patient currently critically ill in intensive care unit on pressors for blood pressure support.
Care Review
Plan reviewed with: Physician (Critical Care)
--- NOTE | 2025-01-11 10:03 | CON.GI ---
Addendum entered and electronically signed by Candy Sanchez MD 01/11/25 15:46:
I saw and examined the patient.
The NEPHROLOGIST or PA's note was reviewed and I agree with the note.
Comment:
This patient is an 79-year-old woman who has a history of A-fib on Eliquis with hypertension and hypercholesterolemia. She has a history of V. tach with a prior pacemaker and ICD. She has been having issues with hypotension and currently is
requiring pressors. She did have some rectal bleeding at home which was painless. Was witnessed by another person. She no longer has any bleeding she did have a colonoscopy 3 months ago and does have diverticulosis and hemorrhoids.
abd: soft nontender
impression:
rectal bleeding likely hemorrhoids vs ischemia due to fluctuating bp
plan:
bleeding resolved; anusol HC
maintain BP as consistent as possible
currently resolved but if restarts can consider flex sig
ok to continue eliquis for now
will sign off call with questions or changes
Addendum entered and electronically signed by LORENA Powell 01/11/25 11:44:
Pt with some mild distention on exam without complaints, for non contrast CT today
Original Note:
Consultation
-
Date/Time Consultation Requested: 01/10/25 194
Date/Time Consultation Performed: 01/11/25 1000
Requesting Provider: kimberlyn Medina MD
Performing Provider: LORENA Zayas, Candy Sanchez MD
Reason for Consultation: GI bleed
Medical History
Chief Complaint / HPI
Chief Complaint: rectal bleeding
History of Present Illness:
Pt is a 79yo presents afib on Eliquis long standing, V- tach, prior pacer, ICD, HTN, hypercholesterolemia, hypothyroidism, hx elevated glucose, RA, prior sy, hysterectomy, TKR, prior colon polyps including flat polyp resection with Dr. Mcgregor
in 2017, obesity, DDD presents to ER with hypothermia, hypotension requirin pressors, acute on chronic renal disease, and GI bleeding. Pt with recent admission with 11/20- 12/01 with similar symptoms with hypotension, hypothermia and shock with ICU
admission and pressors with etiology possible adrenal insufficiency. She is also noted with drop in hbg was normal range with hbg November then 12-16 last admission now 8-9 range and reported bright red blood per rectum. She had
colonoscopy 09/2024- burks 2 mm polyp appendiceal orifice, lipoma AC, diverticulosis, external hemorrhoids. ? EGD years ago. No NSAID use.
In review with patient and family pt with recent admits then went to rehab. On return home family noted last 1-2 weeks some bright red blood in toilet and dripping on floor. She was not noted with bleeding since admission. She denies issues
with odynophagia, dysphagia, GERD, nausea, vomiting, abdominal pain, diarrhea, constipation, or black stools. Per family pt does sit on toilet for prolonged periods with BM's.
Past Medical History
Past Medical History: Arrhythmias (V tach, AFib on Eliquis ), HTN, Hypercholesterolemia, Hypothyroidism and Other (RA, venous insufficiency, colon polyps, B12 deficiency, )
Past Surgical History: Cardiac (pacer, ICD), Cholecystectomy, Gynecological (hysterectomy, D+C), Orthopedic (b/l TKR, carpel tunnel repair, foot surgery ), Tonsilectomy and Other (skin Ca removal, cataracts )
Social History
Tobacco: Non-Smoker
Alcohol: None
Drug: None
Living: With Family
Employment: Retired
Family History
Family History: Other (no family hx GI issues )
Allergies / Home Medications
Allergy/AdvReac Type Severity Reaction Status Date / Time
celecoxib Allergy stomach Verified 01/10/25 21:41
pains
codeine Allergy nausea/vomi Verified 01/10/25 13:09
ting
�Medication �Instructions �Recorded
apixaban 5 mg tablet (Eliquis) 5 mg PO BID #60 tabs 05/18/17
cyanocobalamin (vitamin B-12) 1,000 mcg PO DAILY Supplement 02/19/18
1,000 mcg tablet
magnesium oxide 500 mg PO DAILY ##30 02/21/18
amiodarone 200 mg tablet (Pacerone) 200 mg PO DAILY Arrhythmia 12/23/18
levothyroxine 137 mcg tablet 137 mcg PO DAILY Thyroid 05/03/24
(Levoxyl)
calcium 600 mg (as carbonate)-vit 1 tab PO BID Supplement 11/21/24
D3 20 mcg (800 unit) chewable
tablet (Caltrate plus D)
furosemide 20 mg tablet 20 mg PO DAILY Fluid 11/21/24
Retention/Swelling
qiwbrnrbzqgs-kbodfcul-lclnco tablet 1 tab PO DAILY Supplement 11/21/24
midodrine 5 mg tablet 5 mg PO TID@0800,1300,1800 #90 tabs 12/01/24
thiamine mononitrate (vit B1) 100 100 mg PO DAILY #100 tabs 12/01/24
mg tablet
Review of Systems
-
History Source: Patient
Constitutional: Reports Weight Loss (119 down to 104)
EENT: Reports No Symptoms
Respiratory: Reports No Symptoms
Cardiac: Reports No Symptoms
Abdomen/GI: Reports Abdominal Pain and Bloody Stools
: Reports No Symptoms
Skin: Reports Other (left upper leg bruising with admits to recent fall)
Neurological: Reports No Symptoms and Weakness
Endocrine: Reports No Symptoms
Hematologic/Lymphatic: Reports Bleeding
Vital Signs
Temp Pulse Resp BP Pulse Ox
97.9 F 73 18 98/54 93
01/11/25 07:48 01/11/25 08:30 01/11/25 08:00 01/11/25 08:30 01/11/25 08:00
Physical Exam
Exam
General: Other (elderly female no acute distress )
HEENT: Normocephalic and Anicteric
Respiratory: Clear
Cardiac: Regular Rhythm
GI: Soft and Distended (mild )
Rectal: Brown (heme + ), Hemorrhoids and Other (no masses, lesions or impaction on exam )
Musculoskeletal: No Clubbing and No Cyanosis
Skin: Warm, Dry and Other (LE edema, mild redness and vascular changes per family looks improved from prior )
Neuro: Awake, Alert and AO x 3
Psych: Calm
Results
WBC 7.9 10^3/uL (4.8-10.8) 01/11/25 02:35
Hgb 9.6 g/dL (12.0-16.0) L 01/11/25 02:35
Hct 29.6 % (37.0-47.0) L 01/11/25 02:35
MCV 111.7 fL (81.0-99.0) H 01/11/25 02:35
Plt Count 210 10^3/uL (130-400) 01/11/25 02:35
Absolute Neuts (auto) 5.3 10^3/uL (1.4-6.5) 01/11/25 02:35
PT 20.2 Sec (11.4-14.6) H 01/11/25 02:35
INR 1.67 01/11/25 02:35
APTT 53.4 Sec (23.4-35.0) H 01/11/25 02:35
Sodium 143 mmol/L (135-145) 01/11/25 02:35
Potassium 4.3 mmol/L (3.5-5.1) 01/11/25 02:35
Chloride 110 mmol/L (98-107) H 01/11/25 02:35
Carbon Dioxide 26 mmol/L (22-30) 01/11/25 02:35
BUN 56 mg/dl (7-17) H 01/11/25 02:35
Creatinine 1.9 mg/dL (0.6-1.0) H 01/11/25 02:35
Calcium 8.2 mg/dl (8.4-10.2) L 01/11/25 02:35
Total Bilirubin 1.1 mg/dl (0.2-1.3) 01/11/25 02:35
AST 35 U/L (14-36) 01/11/25 02:35
ALT 27 U/L (0-35) 01/11/25 02:35
Alkaline Phosphatase 107 U/L (38-126) 01/11/25 02:35
Diagnostic Image Results:
11/24 CT Chest/abd/pel W Iv Cont
1. Small left and gsptm-vy-zmlapgpv right pleural effusions with associated probable compressive atelectasis. Cannot rule out superimposed right lower lobe pneumonia.
2. Small volume perihepatic ascites.
Prior GI Procedures:
EGD: years ago
Colonoscopy: 09/2024- kimmie 2 mm polyp appendiceal orifice, lipoma AC, diverticulosis, external hemorrhoids.
Assessment / Plan
-
Pt is a 79yo presents afib on Eliquis long standing, V- tach, prior pacer, ICD, HTN, hypercholesterolemia, hypothyroidism, hx elevated glucose, RA, prior sy, hysterectomy, TKR, prior colon polyps including flat polyp resection with Dr. Mcgregor
in 2017, obesity, DDD presents to ER with hypothermia, hypotension requiring pressor, acute on chronic renal disease, and GI bleeding. Pt with recent admission with 11/20- 12/01 with similar symptoms with hypotension, hypothermia and shock with ICU
admission and pressors with etiology possible adrenal insufficiency. She is also noted with drop in hbg was normal range with hbg 13 til November then 12-16 last admission now 8-9 range and reported bright red blood per rectum. She had
colonoscopy 09/2024- kimmie 2 mm polyp appendiceal orifice, lipoma AC, diverticulosis, external hemorrhoids. ? EGD years ago. No NSAID use.
-rectal bleeding with bright red blood with BM's prior to admission
-anemia with slow drop in hbg over time - macrocytic
-left leg bruising
-hypotension requiring pressors
-hypothermia
-acute on chronic CKD
-hypoalbuminemia
-recent wt loss
other med problems:
-afib on Eliquis long standing, V- tach, prior pacer, ICD, HTN, hypercholesterolemia, hypothyroidism, hx elevated glucose, RA, prior sy, hysterectomy, TKR, prior colon polyps including flat polyp resection with Dr. Mcgregor in 2017, obesity, DDD
PLAN:etiology of bright red blood per rectum likely hemorrhoidal vs other
pt also with some slow drop in hbg-- likely multifactorial - related to chronic disease with renal issues, rectal bleeding , bruising on leg vs other
no further bleeding since admission and current rectal with brown heme + stools
pt with also hypoalbuminemia with some drop in platelets last admission and hypotension but liver appears normal on recent CT
add Anusol HS
if continued drop in hbg or black stools consider EGD with hypotension issues as recently completed colonoscopy in September
pt remains on pressors
cont to trend hbg
for now ok to continue Eliquis
cont Protonix BID
ok for cholesterol lowering diet
abx per ID
discussed with patient and family avoid prolonged sitting on toilet, avoid constipation, monitor bleeding
family updated at bedside
-
-
Thank you for consultation and allowing me to participate in the patient's care. Please call the regional education manager GI physician during the after hours with any questions or concerns.
--- NOTE | 2025-01-11 10:30 | VNURNOTE ---
Chart reviewed. Patient is current with [facility]. Will continue to follow hospital course and DC plans.
[2025-01-11] MEDS: NSS (PRESERVATIVE FREE) 1 ML IV (12:07)
[2025-01-11] MEDS: CORTROSYN 0.25 MG IV (12:09)
[2025-01-11 13:05] LABS: ACTH Stim Cortisol 0 Min 18.4 ug/dl
--- NOTE | 2025-01-11 13:39 | W.PN.HOSP.TC ---
Today's Communication/Plan
-
Assessment / Plan
Assessment / Plan
NAD
Scleral Anicteric
MMM
No JVD
CTABL
RRR, S1/S2
Soft, NT, ND, BS+
Warm, Dry
AAOx3
Sepsis
Potential intra-abdominal
Check CT abdomen pelvis
Check UA urine culture
Follow-up blood culture
IV fluids
Maintain MAP greater than 65
Zosyn renally dosed
Consult ID
Hypothermic and hypotension
Potential infection related versus autonomic dysfunction which is a previous diagnosis provide AMA check start a.m. cortisol of less than 8. As not hypoglycemic and sodium in the 140s
Follow-up blood culture
IV antibiotics
Chronic venous insuff
B/l LE
Compression stockings
LLE Wound
Open wound
Wound care
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
IV fluids
Urine studies
Renal bladder ultrasound
Monitor urinary output
Avoid nephrotoxins hypotension
Lower GI bleed
Hemoglobin 10
Transfuse if less than 7
GI consult
Paroxysmal atrial fibrillation
Hold Eliquis
Continue antibiotic
Telemetry
Hypokalemia
Continue levothyroxine
Anticipated Discharge: 24 - 48 hours
Subjective/Interval History
-
Date of Service: January 11, 2025
Seen and examined. No new complaints. No acute overnight events.
Objective Data
-
Labs:
Laboratory Results
01/11/25
02:35
WBC 7.9
Hgb 9.6 L
Hct 29.6 L
Plt Count 210
PT 20.2 H
INR 1.67
APTT 53.4 H
Sodium 143
Potassium 4.3
Chloride 110 H
Carbon Dioxide 26
BUN 56 H
Creatinine 1.9 H
Glucose 106 H
Calcium 8.2 L
Total Bilirubin 1.1
AST 35
ALT 27
Alkaline Phosphatase 107
Vital Signs:
Vital Signs
Temp Pulse Resp BP Pulse Ox
97.9 F 63 14 98/37 95
01/11/25 07:48 01/11/25 10:45 01/11/25 10:45 01/11/25 10:30 01/11/25 10:45
I&O
01/10/25 01/11/25 01/12/25
06:59 06:59 06:59
Intake Total 1230.1 / 1385.1 1515 / 1515
Output Total 500 / 500
Balance 1230.1 / 1385.1 1015 / 1015
[2025-01-11] MEDS: NSS IV ×2 (14:08→16:04)
[2025-01-11 14:33] LABS: ACTH Stim Cortisol 30 Min 24.6 ug/dl
[2025-01-11 14:36] LABS: ACTH Stim Cortisol 60 Min 30.7 ug/dl
[2025-01-11] MEDS: LR 1000 IV (16:41)
--- NOTE | 2025-01-11 17:04 | PTCARENOTE ---
MRI head ordered earlier today . patient unable to answer screen questions. Elena Rojo (pt mom ) will be contacted by MRI department for MRI screening
--- NOTE | 2025-01-11 17:13 | PTCARENOTE ---
patient in bed. AAO x 3;
Afib 60's on telemetry; on Levophed 8mcg for GOAL MAP 65; unable to titrate Levophed
SpO2 96%/Ra No SOB RR even no labor
Abdomen large, distended most likely to hernia
Voiding on bedpan urine yellow
PVD changeds to b/l LE open areas to b/l le present on admission
[2025-01-11] MEDS: ELIQUIS 2.5 MG PO (19:53)
[2025-01-11] MEDS: NSS (PRESERVATIVE FREE) 10 ML IV (19:53)
--- NOTE | 2025-01-11 20:30 | PTCARENOTE ---
Received patient at 1900. Patient AAOx3 - forgetful @ times. Patient A-Paced/AV paced on the monitor. +1UE/LE edema. DP pulses via doppler bilaterally. Patient on RA - POX 96%. Lungs diminished. Productive cough w/ small amounts of thick clear
sputum. Abdomen round/obese/mildly distended. No complaints of abdominal pain/nausea. No rectal bleeding noted. Patient continent of bowel and bladder w/ mild stress incontinence. Patient w/ LR @125 mls/hr and levo running as ordered - see worklist.
[2025-01-11] MEDS: MUCINEX 1200 MG PO (22:18)
[2025-01-11] MEDS: ANUSOL HC 25 MG RECTAL (22:18)
[2025-01-12] VITALS (69 sets, daily range): BP systolic 83–146; BP diastolic 40–101; PULSE 72–73; O2SAT 93; BMI 38.2
--- NOTE | 2025-01-12 00:30 | PTCARENOTE ---
Systems reviewed. Assessment unchanged. Levo titrated as able - see worklist.
[2025-01-12] MEDS: LR 1000 IV ×4 (00:43→21:29)
[2025-01-12] MEDS: ZOSYN 50 IV ×2 (02:07→08:33)
[2025-01-12 04:48] LABS: Hematocrit 24.8 % (37.0-47.0); Hemoglobin 7.9 g/dL (12.0-16.0); Mean Corp Hgb Conc. 31.9 g/dL (33.0-37.0); Mean Corpuscular Volume 110.7 fL (81.0-99.0); Platelet Count 167 10^3/uL (130-400); Red Cell Dist. Width 18.1 % (11.5-14.5)
[2025-01-12 04:57] LABS: ALT (SGPT) 22 U/L (0-35); AST (SGOT) 26 U/L (14-36); Albumin 2.2 g/dl (3.5-5.0); Alkaline Phosphatase 90 U/L (38-126); Blood Urea Nitrogen 39 mg/dl (7-17); Calcium 7.8 mg/dl (8.4-10.2); Carbon Dioxide 29 mmol/L (22-30); Chloride 112 mmol/L (98-107); Estimated Creatinine Clearance 32 ml/min; Glucose 72 mg/dl (70-99); Potassium 3.7 mmol/L (3.5-5.1); Sodium 142 mmol/L (135-145); Total Protein 4.9 g/dl (6.3-8.2); eGFR 30.13
--- NOTE | 2025-01-12 06:45 | PTCARENOTE ---
Unable to obtain oral temp - rectal temp of 94.2 obtained. SEARCH PLANNER notified and pastora flynn applied. Levo attempted to wean off - unable to maintain map >65 - levo restarted - see worklist.
[2025-01-12] MEDS: SYNTHROID 137 MCG PO (06:53)
--- NOTE | 2025-01-12 07:33 | W.PN.INTV ---
Today's Communication / Plan
Recommendations
Consider antibiotic discontinuation
Decrease IV fluids
Wean and norepinephrine
Empiric hydrocortisone
Increase midodrine
Hematology evaluation
If able to be weaned off norepinephrine then the patient could be transferred out of ICU-damage inside adjuster would sign off at that time
Assessment
-
79-year-old former smoking female with history of hypertension, hyperlipidemia, hypothyroid, rheumatoid arthritis, ventricular tachycardia with recent hospitalization for 11 days November 2024 with hypothermia, hypotension and shock requiring ICU
admission with pressors with negative infectious and endocrine workup discharged on midodrine and felt to have autonomic dysfunction presented with hypothermia, hypotension and rectal bleeding possibly from hemorrhoids and damage inside adjuster consulted for
hypotension/pressor management/critical care management 01/11/2025.
Hypotension requiring pressors
Hypothermia
Lower GI bleed likely from external hemorrhoids
Anemia from acute blood loss-hemoglobin 9.6-macrocytic
SNOW
Paroxysmal atrial fibrillation
Mild hyperglycemia
Relatively low cortisol
Conditions present prior to admission:
Hypertension.
Hyperlipidemia.
Autonomic dysfunction.
Hypothyroid.
Rheumatoid arthritis.
Ventricular tachycardia/pacemaker/defibrillator.
Former smoker.
Cholecystectomy. Hysterectomy. Bilateral knee replacement.
Plan
Remains critically ill on pressors
Supplement oxygen as needed
High flow oxygen if needed
BiPAP if necessary
Intubate and mechanically ventilate if necessary
Aspiration precautions
Nebulizers if needed
Cultures reviewed
Blood cultures no growth
Urine culture pending
Unable to produce sputum
Empiric antibiotics-consider discontinuing if no obvious source for infection found as hypotension may be noninfectious/sepsis
Infectious disease following-correspondence reviewed
Monitor leukocytosis
Reported neurologic workup consistent with autonomic disorder
Midodrine continues-increased dose to 10 mg 3 times daily
Cosyntropin stim test technically normal-not a significant response
Empiric hydrocortisone to see if blood pressure improves
Decrease IV fluids
Wean norepinephrine
Monitor hemoglobin-macrocytic anemia
Monoclonal spike in the gamma region November 2024
Hematology evaluation
DVT prophylaxis-on Eliquis
GI prophylaxis-on pantoprazole
Early nutrition if possible
Early mobilization/bedside range of motion
If able to be weaned off norepinephrine then could be transferred out of ICU-damage inside adjuster at that point would sign off-call pulmonary if respiratory issues arise
Critical care statement: A total of 45 minutes of critical care time was provided for this patient today. This includes management of unstable vital signs, evaluation of the patient at bedside, reviewing the patient's pertinent medical records
including radiographs, pressor management, microbiology, laboratory evaluations, and discussion with primary team, consultants, pharmacy, nutrition, physical therapy, case management, charge nurse, critical care nursing, and respiratory therapy.
Diagnostic data:
Chest x-ray 11/20/2024-NAD
Chest x-ray 01/11/2025-low lung volumes
CT chest abdomen and pelvis 11/24/2024-small to moderate right pleural effusion, small volume perihepatic ascites
MRI brain 11/30/2024-no acute intracranial abnormalities
Echocardiogram 11/22/2024-EF 55-60%,
Subjective Dataa
Subjective Data
Date of Service:
Date of Service: January 12, 2025
Chief Complaint: Synthetic Department Supervisor Follow Up and Pulmonary Follow Up
Subjective:
Mental status still declined, hypothermic, blood pressure still low and norepinephrine reinitiated
Review of Systems
General: Other (Per HPI)
Objective Data
Data Reviewed
Vital Signs / I&O / Oxygen:
Vital Signs
Temp Pulse Resp BP Pulse Ox
95.2 F L 64 16 119/62 96
01/12/25 06:00 01/12/25 06:15 01/12/25 06:15 01/12/25 06:15 01/12/25 06:15
Intake and Output
01/11/25 01/12/25 01/13/25
06:59 06:59 06:59
Intake Total 1230.1 / 1385.1 5018.9 / 5018.9
Output Total 1300 / 1300
Balance 1230.1 / 1385.1 3718.9 / 3718.9
SaO2 96
Physical Exam
General: Respiratory Distress (n) and Comfortable
HEENT: Normocephalic, Anicteric and Moist Mucous Membranes
Cardiovascular: Regular Rhythm
Respiratory: Wheeze (n), Crackles (n), Rhonchi (n), Non-Labored Respirations, Accessory Resp Muscle Use (n) and Stridor (n)
GI: Soft, Non Distended and Non Tender
Neurology: No Motor Deficits and Lethargic
Skin: Warm, Good Color, Cyanosis (n), Jaundice (n) and Rash (n)
Labs/Micro/Reports
Lab Data
01/12/25 04:05
01/12/25 04:05
Microbiology
01/10/25 15:57 Blood/Venous Blood Culture - Preliminary
No Growth in 24 hours- Final report to follow
01/10/25 15:57 Blood/Venous Blood Culture - Preliminary
No Growth in 24 hours- Final report to follow
--- NOTE | 2025-01-12 08:00 | PTCARENOTE ---
received patient from third cook, patient is awake, alert, oriented pleasant. She feels very tired. Patient is on room air, slightly diminished throughout, has slightly productive cough. patient is on 2mcg of levophed for MAP>65. She is sinus
rhythm on monitor. Has been A paced with bundle branch as well. +1 edema to upper and lower extremities. Patient has cholesterol lowering diet, although states she has not had much of appetite. assisted patient in setting up breakfast. Was
straight cathed at 0630 this am. Skin as documented in focused shift assessment. Multiple areas of MASD. some open areas behind calf. Lita hugger on to maintain temp>97. will review orders, patient able to make needs known.
[2025-01-12] MEDS: NSS (PRESERVATIVE FREE) 10 ML IV ×2 (08:32→19:38)
[2025-01-12] MEDS: PROTONIX IV 40 MG IV ×2 (08:33→19:37)
[2025-01-12] MEDS: VITAMIN B-12 1000 MCG PO (08:33)
[2025-01-12] MEDS: OSCAL 500 + D 500 MG PO ×2 (08:34→19:38)
[2025-01-12] MEDS: THERAGRAN 1 TABLET PO (08:34)
[2025-01-12] MEDS: PACERONE 200 MG PO (08:34)
[2025-01-12] MEDS: ELIQUIS 2.5 MG PO ×2 (08:34→19:38)
[2025-01-12] MEDS: VITAMIN B1 100 MG PO (08:34)
[2025-01-12] MEDS: MUCINEX 1200 MG PO ×2 (08:34→19:38)
--- NOTE | 2025-01-12 09:38 | W.PN.HOSP.TC ---
Today's Communication/Plan
-
Fludrocortisone
Hematology consult
cont Zosyn
Assessment / Plan
Assessment / Plan
79yo F with PMHX of cholecystectoiny, Parkinsons, hypothyroidism, Afib on eliquis, poor ambulatory capacity, came with chills for few days before admission, found shock and hypothermia. Patient hd Hx of the same with negative w/u, possibly due to
autonomic dysfuction discharged from at the end of Nov 2024. ALso found lower GIB 2/2 bleeding hemmorhoids vs interstinal ischemia due to shock.
A/P:
#Shock, unclear mechanism, cannot r//o autonomic dysfunction - neurogenic hypotension vs proctitis
#Hypothermia
#Hypothyroidism
check TSH
Random cortisol low, however ACTH neg for adrenal insufficiency
Zosyn, pending further ID reccomendations: CXR - no pneumonia, no signs of UTI with absent pyuria, Bcx NTD
Warming blanket
If hypothermia 2/2 parkibnsons dysautomnomia- will consider Levodopa therapy
Planned for LP on last admission, but since improved - defered by neurologist.
#Small R kidney lesions, probably cyst
#L adrenal lesion: old hemorrhage or cyst
Repeat outpatient CT in 6mo
#Hx of positive RF and antiCCP Ab
might benefit from outpatient furnace installer helper
#Macrocytic anemia
#Monoclonal spike in the gamma region - in Nov 2024
Barrel Roller Operator
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
b12 and folate WNL
Might need Barrel Roller Operator as outpatient
#SNOW on CKD stage 3b
Cr baseline 1.2-1.4
Hydrate
maintain BP
follow Cr
#Parkinsonism with hallucination and dysautonomia
Liberalize fluid intake
avoid BP meds
Waste-high stocking, abdominal binder
Midodrine - but insufficient increase
Add Fludrocortisone
Wean off pressors
Recent MRI brain in Nov 2024 - no acute findings
#PAroxysmal Afib
well controlled
cont Amiodarone
Eliquis: decrease dose as CR>1.5 and age =79yo
#Lower GIB 2/2 hemorrhoids
GI consult: cont ELiquis
Follow CBC
DVT ppx Eliquis
Full code
I have spent at least 59min reviewing chart, test results, communication with consultants and providing direct patient care
Anticipated Discharge: > 48 hours
Subjective/Interval History
-
Date of Service: January 12, 2025
Objective Data
-
Labs:
Laboratory Results
01/12/25
04:05
WBC 4.7 L
Hgb 7.9 L
Hct 24.8 L
Plt Count 167 D
Sodium 142
Potassium 3.7
Chloride 112 H
Carbon Dioxide 29
BUN 39 H
Creatinine 1.7 H
Glucose 72
Calcium 7.8 L
Total Bilirubin 0.8
AST 26
ALT 22
Alkaline Phosphatase 90
Vital Signs:
Vital Signs
Temp Pulse Resp BP Pulse Ox
96.6 F L 75 19 95/59 95
01/12/25 09:00 01/12/25 08:45 01/12/25 08:45 01/12/25 08:30 01/12/25 08:45
I&O
01/11/25 01/12/25 01/13/25
06:59 06:59 06:59
Intake Total 1230.1 / 1385.1 5151.4 / 5283.9 397.5 / 397.5
Output Total 1750 / 1750
Balance 1230.1 / 1385.1 3401.4 / 3533.9 397.5 / 397.5
Review of Systems
-
History Source: Patient
All other systems: Reviewed and negative
Physical Exam
-
General: No Apparent Distress
HEENT: Normocephalic
Respiratory: Clear to Auscultation
Cardiac: Regular Rhythm
GI: Soft, Nontender and Nondistended
Musculoskeletal: No Clubbing, No Cyanosis and No Edema
Skin: Warm
Neuro: Awake, Alert, Oriented and AO x 3
Psych: Calm
[2025-01-12] MEDS: SOLU-CORTEF 100 MG IV (11:15)
[2025-01-12] MEDS: FLORINEF 0.1 MG PO (11:15)
--- NOTE | 2025-01-12 11:17 | W.PN.ID1 ---
Date of Service
Date of Service: January 12, 2025
Today's Communication
DC Zosyn
Assessment / Plan
Hypotension
- weaning norepinephrine
Hypothermia; improved
SNOW on CKD
P A-fib
HTN
Class III obesity
Rheumatoid arthritis
Hypothyroidism
Hypertrophic cardiomyopathy
Venous insufficiency
LE lymphedema
Recommendations:
At present, no overt signs of an infectious process.
Blood cx's neg to date.
UA no sig wbc, >30 sq epith suggestive of contaminated specimen
DC empiric Zosyn for the present
Monitor white count and temperature curve.
Continue with supportive measures.
Chief Complaint
-: Other (Hypothermia/hypotension)
Subjective / Review of Systems
daughter at bedside.
c/o warming blanket too hot.
no other complaints
Vital Signs / Physical Exam
Vital Signs
Vital Signs
Temp Pulse Resp BP Pulse Ox
96.6 F L 63 19 89/49 95
01/12/25 09:00 01/12/25 09:40 01/12/25 09:40 01/12/25 09:40 01/12/25 09:40
Physical Exam
Constitutional: No Acute Distress
Eyes: No Conjunctival Hemorrhage and Sclera Anicteric
Cardiovascular: Regular Rate, S1/S2 and Other (ICD site no erythema/induration)
Pulmonary: Clear
Gastrointestinal: Soft, Non Tender, Non Distended and Normal Bowel Sounds
Extremities: Edema (BLE lymphedema) and Venous Insufficiency
Neurological: Awake and Alert
Objective Data
Lab Data
Lab Results
01/12/25 04:05
01/12/25 04:05
PT 20.2 Sec (11.4-14.6) H 01/11/25 02:35
INR 1.67 01/11/25 02:35
APTT 53.4 Sec (23.4-35.0) H 01/11/25 02:35
Estimated Creat Clear 32 ml/min 01/12/25 04:05
Lactic Acid Cancelled 01/10/25 23:44
Total Bilirubin 0.8 mg/dl (0.2-1.3) 01/12/25 04:05
AST 26 U/L (14-36) 01/12/25 04:05
ALT 22 U/L (0-35) 01/12/25 04:05
Alkaline Phosphatase 90 U/L (38-126) 01/12/25 04:05
Most recent labs reviewed.
Micro Results:
01/10/25 15:57 Blood Culture - Preliminary
Blood/Venous No Growth in 24 hours- Final report to follow
01/10/25 15:57 Blood Culture - Preliminary
Blood/Venous No Growth in 24 hours- Final report to follow
01/10/25 23:17 Urine Culture - Pending
Urine
Imaging:
01/11/2025 CXR (portable): film is rotated subsegmental atelectatic changes at the right base. No pneumothorax. Please see full dictation for additional detail. Film personally viewed.
[2025-01-12 11:28] LABS: TSH 4.67 uIU/ml (0.47-4.68)
--- NOTE | 2025-01-12 11:43 | CM ---
Initial assessment completed with patient and daughter. Daughter lives with patient in a 2 story home plus basement with B/B on 2nd, but patient has been staying on 1st floor with hospital bed, 1/2 bath on 1st, 2 steps to enter. NUTRITION REPRESENTATIVE patient
ambulated with a rollator, requires assistance with ADL's, does not drive. Other DME in home is hospital bed, stair walker, RW, W/ch, SC, shower grab bars, pacer/ICD. Patient has CHIEF EXECUTIVE OR MANAGING DIRECTOR through [employer] for 4 hrs/day 7 days a week. She
also is on service with [facility] for RN, PT/OT services. She does have Long-Term insurance. Does have HC-POA. PCP is Jp Pimentel. Pharmacy is [facility] [address] in [place]. Discharge POC: TBD. [facility] referral forwarded.
--- NOTE | 2025-01-12 13:07 | PTCARENOTE ---
patient has pastora hugger off and levo is back to 2mcg. ok with Dr. Jolley for IMU tx.
--- NOTE | 2025-01-12 14:39 | CON.ONC ---
Documented by User: Emeli De La Cruz MD, Resident 01/12/25 16:42
Consultation
-
Date Consultation Requested: 01/12/25
Date Consultation Performed: 01/12/25
Requesting Provider: Marlon Jolley MD
Performing Provider: Dwain Peterson MD; Dorothy, Emeli Romero MD
Reason for Consultation: Monoclonal Gildardo in gamma region
Impression
Impression
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
Macrocytic Hyperchromic Anemia
Lower GI bleeding
Acute Kidney Injury
Plan
Plan
-Anemia studies ordered: Iron studies, B12, Folate studies, Reticulocyte, LDH, haptoglobin
-Ordered Serum Free light chain for further evaluation
-Outpatient follow up with hematology/oncology
Patient History
History of Present Illness
Ms. Rojo is an 79 year old female with past medical history Paroxysmal Atrial Fibrillation on Eliquis, Ventricular Tachycardia, Hypertension, Primary Hypothyroidism, DM II, Acute metabolic encephalopathy, HOCM, RA, and Spinal stenosis presented at
[facility] for rectal bleeding and hypothermia.
Approximately 2 months prior to consult, the patient had onset of bright red rectal bleeding, minimal in amount, presumed to be from hemorrhoids. She also reports fatigue and hallucinations, described as 'seeing people that are not there'. For the
past week, she's noted that the bleeding has been worse, and 1 day prior to consult, she felt extremely cold, even with multiple blankets on her, along with worsening rectal bleeding, thus prompted consult. She report right sided abdominal
tenderness that started recently but denies changes in bowel movement, nausea and vomiting. She has chronic back pain, but denies history of fractures or kidney stones.
She reports weight loss and compared to April this year, she's lost 26 lbs.
HEYDI and Serum PEP showed monoclonal spike gamma region with IgG type kappa monoclonal protein. Monoclonal protein 0.24. Ig, IgA 184, IgM 51.
Hgb:7.9, MCV 110.7, MCH 35.3, RDW 18.1, BUN 39, Creatinine 1.7, Calcium 7.8.
Family history of esophageal cancer paternal side.
Past-Medical/Surgical History
Paroxysmal Atrial Fibrillation on Eliquis
Ventricular Tachycardia s/p ICD pacemaker
Hypertension
Primary Hypothyroidism
DM II
Acute metabolic encephalopathy
HOCM
RA
Spinal stenos
Patient Medication
�Medication �Instructions �Recorded �Confirmed �Last Taken �Type
apixaban 5 mg tablet (Eliquis) 5 mg PO BID #60 tabs 05/18/17 01/10/25 11/17/24 Rx
cyanocobalamin (vitamin B-12) 1,000 mcg PO DAILY Supplement 02/19/18 01/10/25 11/17/24 History
1,000 mcg tablet
magnesium oxide 500 mg PO DAILY ##30 02/21/18 01/10/25 11/17/24 Rx
amiodarone 200 mg tablet (Pacerone) 200 mg PO DAILY Arrhythmia 12/23/18 01/10/25 11/17/24 History
levothyroxine 137 mcg tablet 137 mcg PO DAILY Thyroid 05/03/24 01/10/25 11/17/24 History
(Levoxyl)
calcium 600 mg (as carbonate)-vit 1 tab PO BID Supplement 11/21/24 01/10/25 11/17/24 History
D3 20 mcg (800 unit) chewable
tablet (Caltrate plus D)
furosemide 20 mg tablet 20 mg PO DAILY Fluid 11/21/24 01/10/25 11/17/24 History
Retention/Swelling
tthfhxaqbsjv-icksghph-dgrywd tablet 1 tab PO DAILY Supplement 11/21/24 01/10/25 11/17/24 History
midodrine 5 mg tablet 5 mg PO TID@0800,1300,1800 #90 tabs 12/01/24 01/10/25 01/10/25 Rx
thiamine mononitrate (vit B1) 100 100 mg PO DAILY #100 tabs 12/01/24 01/10/25 Unknown Rx
mg tablet
Active Medications
Generic Name Dose Route Start Last Admin
Trade Name Lucie ROMERO Reason Stop Dose Admin
Amiodarone HCl 200 mg 01/11/25 08:00 01/12/25 08:34
Amiodarone 200 Mg Tablet PO 02/08/25 07:59 200 mg
DAILY CHAO Administration
Apixaban 2.5 mg 01/11/25 20:00 01/12/25 08:34
Apixaban (Eliquis) 2.5 Mg Tablet PO 02/08/25 19:59 2.5 mg
BID CHAO Administration
Calcium/Vitamin D 500 mg 01/10/25 20:00 01/12/25 08:34
Calcium Carbonate 500 Mg/Vitamin D 5 Mcg (200 Units) Tablet PO 02/07/25 19:59 500 mg
BID CHAO Administration
Cyanocobalamin 1,000 mcg 01/11/25 08:00 01/12/25 08:33
Cyanocobalamin (Vitamin B-12) 500 Mcg Tablet PO 02/08/25 07:59 1,000 mcg
DAILY CHAO Administration
Fludrocortisone Acetate 0.1 mg 01/12/25 11:00 01/12/25 11:15
Fludrocortisone Acetate 0.1 Mg Tablet PO 02/09/25 10:59 0.1 mg
DAILY CHAO Administration
Guaifenesin 1,200 mg 01/11/25 22:00 01/12/25 08:34
Guaifenesin 600 Mg Extended Release Tablet PO 02/08/25 21:59 1,200 mg
Q12 CHAO Administration
Hydrocortisone Acetate 25 mg 01/11/25 22:00 01/11/25 22:18
Anusol Hc 25 Mg Rectal Suppository RECTAL 02/08/25 21:59 25 mg
HS CHAO Administration
Lactated Ringer's 1,000 mls @ 125 mls/hr 01/11/25 16:00 01/12/25 14:26
Lr IV 1,000 mls
.Q8H CHAO Administration
Norepinephrine Bitartrate 4 mg in 250 mls @ 0 mls/hr 01/12/25 06:00
Levophed IV
PER PROTOCOL CHAO
Protocol
Per Protocol
Levothyroxine Sodium 137 mcg 01/11/25 06:00 01/12/25 06:53
Levothyroxine 137 Mcg Tablet PO 02/08/25 05:59 137 mcg
DAILY@0600 CHAO Administration
Magnesium Oxide 400 mg 01/11/25 08:00 01/11/25 08:29
Magnesium Oxide 400 Mg Tablet PO 02/08/25 07:59 400 mg
On Hold: 01/11/25 15:16 DAILY CHAO Administration
Miconazole Nitrate 1 applic 01/10/25 23:56
Miconazole Powder Bottle TOPICAL 02/07/25 23:55
BIDPRN PRN
skin folds
Midodrine 10 mg 01/12/25 10:24 01/12/25 13:15
Midodrine 5 Mg Tablet PO 02/07/25 19:59 10 mg
TID@0800,1300,1800 CHAO Administration
Multivitamins Therapeutic 1 tablet 01/11/25 08:00 01/12/25 08:34
Multivitamin Tablet PO 02/08/25 07:59 1 tablet
DAILY CHAO Administration
Pantoprazole Sodium 40 mg 01/10/25 20:00 01/12/25 08:33
Pantoprazole Sodium 40 Mg/10 Ml Vial IV 02/07/25 19:59 40 mg
BID CHAO Administration
Sodium Chloride 0 flush 01/10/25 20:00
Sodium Chloride 0.9% (Flush) Syringe IV 02/07/25 19:59
PER PROTOCOL CHAO
Sodium Chloride 10 ml 01/11/25 20:00 01/12/25 08:32
Sodium Chloride 0.9% (Preservative Free) 10 Ml Vial IV 02/08/25 19:59 10 ml
BID CHAO Administration
Thiamine HCl 100 mg 01/11/25 08:00 01/12/25 08:34
Thiamine 100 Mg Tablet PO 02/08/25 07:59 100 mg
DAILY CHAO Administration
Review of Systems
-
History Source: Patient
Constitutional: Reports Weight Loss and Fatigue; Denies Fever
EENT: Reports No Symptoms
Respiratory: Denies Trouble Breathing
Cardiac: Denies Diaphoresis or Palpitations
GI: Reports Bloody Stools; Denies Nausea, Vomiting or Constipated
: Reports No Symptoms
Musculoskeletal: Reports Other (chronic back pain)
Neuro: Denies Headache, Weakness or Numbness
Endocrine: Denies Excessive Thirst
Hematologic/Lymphatic: Reports Bleeding
Psych: Reports Other (hallucinations)
Physical Exam
-
General: No Apparent Distress and Conversant
Cardiology: Normal Sinus Rhythm, S1 and S2
GI: Soft, Normal Bowel Sounds and Other (tender in the right quadrant)
Musculoskeletal: Edema, Right Lower Extrem (+1), Edema, Left Lower Extrem (+1) and Other (stasis dermatitis)
Extremities: Pulses Present
Skin: Warm
Psych: Calm
Labs
Lab Results
WBC 4.7 10^3/uL (4.8-10.8) L 01/12/25 04:05
RBC 2.24 10^6/uL (4.20-5.40) L 01/12/25 04:05
Hgb 7.9 g/dL (12.0-16.0) L 01/12/25 04:05
Hct 24.8 % (37.0-47.0) L 01/12/25 04:05
MCV 110.7 fL (81.0-99.0) H 01/12/25 04:05
MCH 35.3 pg (27.0-31.0) H 01/12/25 04:05
MCHC 31.9 g/dL (33.0-37.0) L 01/12/25 04:05
RDW 18.1 % (11.5-14.5) H 01/12/25 04:05
Plt Count 167 10^3/uL (130-400) D 01/12/25 04:05
MPV 10.4 fL (7.4-10.4) 01/12/25 04:05
Abs Immat Gran (auto) 0.0 10^3/uL (0-0.05) 01/11/25 02:35
Absolute Neuts (auto) 5.3 10^3/uL (1.4-6.5) 01/11/25 02:35
Absolute Lymphs (auto) 1.8 10^3/uL (1.2-3.4) 01/11/25 02:35
Absolute Monos (auto) 0.7 10^3/uL (0.1-0.6) H 01/11/25 02:35
Absolute Eos (auto) 0.0 10^3/uL (0-0.7) 01/11/25 02:35
Absolute Basos (auto) 0.0 10^3/uL (0-0.2) 01/11/25 02:35
Immature Gran % 0.5 % (0-0.5) 01/11/25 02:35
Neutrophils % 67.0 % (42.2-75.2) 01/11/25 02:35
Lymphocytes % 22.9 % (20.5-51.1) 01/11/25 02:35
Monocytes % 8.8 % (1.7-9.3) 01/11/25 02:35
Eosinophils % 0.4 % (0-6) 01/11/25 02:35
Basophils % 0.4 % (0-2) 01/11/25 02:35
Creatinine 1.7 mg/dL (0.6-1.0) H 01/12/25 04:05
Vital Signs
Vital Signs
Temp Pulse Resp BP Pulse Ox
98.1 F 68 19 94/52 93
01/12/25 12:14 01/12/25 13:15 01/12/25 12:45 01/12/25 13:15 01/12/25 12:45

Documented by User: Dwain Peterson MD 01/13/25 06:07
Plan
Plan
-Anemia studies ordered: Iron studies, B12, Folate studies, Reticulocyte, LDH, haptoglobino RA
-Ordered Serum Free light chain for further evaluation
-Outpatient follow up with hematology/oncology
Hematology Addendum:
Patient seen and evaluated and agree w/ resident note and plan as outlined
-small 0.24g/dl IgG kappa monoclonal spike
-check serum free light chain analysis and QIGs
-macrocytic anemia - unclear etiology - potentially multifactorial - anemia of inflammation in setting of ongoing process as well as RA vs component related to blood loss w/ hemorrhoidal bleeding vs anemia of CKD vs. other etiologies
-check B12/ folic acid - reticulocyte count, LDH, and haptoglobin
-follow CBC
will continue to follow with you
[2025-01-12] MEDS: SOLU-CORTEF 50 MG IV ×2 (18:49→21:37)
--- NOTE | 2025-01-12 21:23 | PTCARENOTE ---
received pt from [facility], assessments completed. patient offers no c/o pain or discomfort. patient is alert and verbal, able to make needs known. patient OOB to BSC, bowel movement x 1. patient remains normothermic, BP remains WNL. Levo
remains off and IVF running at 125. patient does have urinary retention, will bladder scan. edema noted to bilateral upper and lower extremities. will continue to monitor urinary output
[2025-01-12] MEDS: ANUSOL HC 25 MG RECTAL (21:37)
[2025-01-13] VITALS (13 sets, daily range): BP systolic 81–158; BP diastolic 39–107; BMI 38.9
[2025-01-13] MEDS: LASIX 20 MG IV (02:08)
--- NOTE | 2025-01-13 02:44 | PTCARENOTE ---
patient continues to have low urine output, sent message to [facility], regarding fluids at 125 and decreased output with edema and productive cough, new order written for dose of lasix.
--- NOTE | 2025-01-13 03:05 | PTCARENOTE ---
decreased urine output, edema to b/l hands, patient has productive cough, reviewed with hospitalist. new order to d/c fluids and give dose of lasix
[2025-01-13 04:17] LABS: Hematocrit 27.2 % (37.0-47.0); Hemoglobin 8.9 g/dL (12.0-16.0); Mean Corp Hgb Conc. 32.7 g/dL (33.0-37.0); Mean Corpuscular Volume 110.1 fL (81.0-99.0); Nucleated Red Blood Cells % 0 %; Platelet Count 198 10^3/uL (130-400); Red Cell Dist. Width 18.2 % (11.5-14.5); Reticulocyte Count 4.7 % (0.4-2.8)
[2025-01-13] MEDS: SYNTHROID 137 MCG PO (04:57)
[2025-01-13] MEDS: SOLU-CORTEF 50 MG IV ×3 (04:58→16:33)
--- NOTE | 2025-01-13 05:27 | PTCARENOTE ---
iv lasix effective, output >1500 ml, lungs clear in bases, productive cough diminished, labs drawn and sent, no new orders,
[2025-01-13 05:40] LABS: ALT (SGPT) 26 U/L (0-35); AST (SGOT) 34 U/L (14-36); Albumin 2.3 g/dl (3.5-5.0); Alkaline Phosphatase 94 U/L (38-126); Blood Urea Nitrogen 27 mg/dl (7-17); Calcium 8.5 mg/dl (8.4-10.2); Carbon Dioxide 29 mmol/L (22-30); Chloride 109 mmol/L (98-107); Estimated Creatinine Clearance 37 ml/min; Glucose 103 mg/dl (70-99); Iron 50 ug/dl (37-170); LDH 182 U/L (120-246); Magnesium 2.0 mg/dl (1.6-2.3); Potassium 3.7 mmol/L (3.5-5.1); Sodium 137 mmol/L (135-145); Total Protein 5.2 g/dl (6.3-8.2); eGFR 35.01
[2025-01-13 05:49] LABS: Total Iron Binding Capacity 227 ug/dl (265-497)
[2025-01-13 06:30] LABS: Ferritin 149.0 ng/ml (11.1-264.0)
[2025-01-13 07:01] LABS: Folate 12.5 ng/ml (2.76-20); Vitamin B12 > 1000 pg/ml (239-931)
--- NOTE | 2025-01-13 08:04 | W.PN.HOSP.TC ---
Today's Communication/Plan
-
still on bear hugger
reports cough with sputum - send Cx
trial of Synemet
Assessment / Plan
Assessment / Plan
79yo F with PMHX of cholecystectoiny, Parkinsons, hypothyroidism, Afib on eliquis, poor ambulatory capacity, came with chills for few days before admission, found shock and hypothermia. Patient hd Hx of the same with negative w/u, possibly due to
autonomic dysfuction discharged from at the end of Nov 2024. ALso found lower GIB 2/2 bleeding hemmorhoids vs interstinal ischemia due to shock.
A/P:
#Shock, unclear mechanism, cannot r//o autonomic dysfunction - neurogenic hypotension vs proctitis
#Hypothermia
#Hypothyroidism
#Cough with sputum
Random cortisol low, however ACTH neg for adrenal insufficiency
Zosyn, pending further ID recommendations: CXR - no pneumonia, no signs of UTI with absent pyuria, Bcx NTD
Warming blanket
Planned for LP on last admission, but since improved - deferred by neurologist.
#Small R kidney lesions, probably cyst
#L adrenal lesion: old hemorrhage or cyst
Repeat outpatient CT in 6mo
#Hx of positive RF and antiCCP Ab
might benefit from outpatient folder stitcher operator
#Macrocytic anemia
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
b12 and folate WNL
Hematology consult: recent SPEP, Immunoglobulins, FLC, haptoglobin
#SNOW on CKD stage 3b
resolved
Cr baseline 1.2-1.4
Hydrate
maintain BP
follow Cr
#Parkinsonism with hallucination and dysautonomia
As per neurology assessment 05/05/24
Levodopa can help with hypothermia - will initiate
Liberalize fluid intake
avoid BP meds
Waste-high stocking, abdominal binder
Midodrine - but insufficient increase
Add Fludrocortisone
Wean off pressors
Recent MRI brain in Nov 2024 - no acute findings
#Paroxysmal Afib
well controlled
cont Amiodarone
Eliquis: decrease dose as CR>1.5 and age =79yo
#Lower GIB 2/2 hemorrhoids
GI consult: cont Eliquis
Follow CBC
#Spinal stenosis
Hx of chronic back pain with b/l LE numbness, onset years ago, aready followed by outpatient physicians as per patient
Pain mgmt
DVT ppx Eliquis
Full code
I have spent at least 57min reviewing chart, test results, communication with consultants and providing direct patient care
Anticipated Discharge: > 48 hours
Subjective/Interval History
-
Date of Service: January 13, 2025
Objective Data
-
Labs:
Laboratory Results
01/13/25 01/13/25
04:03 04:54
WBC 3.5 L
Hgb 8.9 L
Hct 27.2 L
Plt Count 198
Sodium Cancelled 137
Potassium Cancelled 3.7
Chloride Cancelled 109 H
Carbon Dioxide Cancelled 29
BUN Cancelled 27 H
Creatinine Cancelled 1.5 H
Glucose Cancelled 103 H
Calcium Cancelled 8.5
Total Bilirubin Cancelled 0.8
AST Cancelled 34
ALT Cancelled 26
Alkaline Phosphatase Cancelled 94
Vital Signs:
Vital Signs
Temp Pulse Resp BP Pulse Ox
96.1 F L 60 15 123/63 92
01/13/25 07:15 01/13/25 05:30 01/13/25 05:30 01/13/25 04:00 01/13/25 05:30
I&O
01/12/25 01/13/25 01/14/25
06:59 06:59 06:59
Intake Total 5151.4 / 5283.9 2200.0 / 2200.0
Output Total 1750 / 1750 1800 / 1800
Balance 3401.4 / 3533.9 400.0 / 400.0
Review of Systems
-
History Source: Patient
All other systems: Reviewed and negative
Respiratory: Reports Cough
Physical Exam
-
General: No Apparent Distress
HEENT: Normocephalic
Respiratory: Clear to Auscultation
Cardiac: Regular Rhythm
GI: Soft, Nontender and Nondistended
Musculoskeletal: No Clubbing, No Cyanosis, Edema, Right Lower Extrem and Edema, Left Lower Extrem
Neuro: Awake, Alert, Oriented and AO x 3
Psych: Calm
[2025-01-13] MEDS: FLORINEF 0.1 MG PO (08:26)
[2025-01-13] MEDS: VITAMIN B1 100 MG PO (08:26)
[2025-01-13] MEDS: VITAMIN B-12 1000 MCG PO (08:26)
[2025-01-13] MEDS: THERAGRAN 1 TABLET PO (08:26)
[2025-01-13] MEDS: ELIQUIS 2.5 MG PO ×2 (08:27→21:18)
[2025-01-13] MEDS: MUCINEX 1200 MG PO ×2 (08:28→21:20)
[2025-01-13] MEDS: NSS (PRESERVATIVE FREE) 10 ML IV (08:28)
[2025-01-13] MEDS: PROTONIX IV 40 MG IV (08:28)
[2025-01-13] MEDS: OSCAL 500 + D 500 MG PO ×2 (08:28→21:19)
[2025-01-13] MEDS: PACERONE 200 MG PO (08:28)
--- NOTE | 2025-01-13 09:41 | W.PN.ID1 ---
Date of Service
Date of Service: January 13, 2025
Today's Communication
Observe off abx.
Assessment / Plan
s/p Hypotension
- off norepinephrine
Hypothermia; improved
SNOW on CKD
P A-fib
HTN
Class III obesity
Rheumatoid arthritis, no on Tx
Hypothyroidism
Hypertrophic cardiomyopathy
Venous insufficiency
LE lymphedema
Recommendations:
At present, no overt signs of an infectious process.
Blood cx's neg to date.
UA no sig wbc, >30 sq epith suggestive of contaminated specimen
Observe off abx
Monitor white count and temperature curve.
Continue with supportive measures.
Chief Complaint
-: Other (Hypothermia/hypotension)
Subjective / Review of Systems
Feels better. No specific complaints.
Vital Signs / Physical Exam
Vital Signs
Vital Signs
Temp Pulse Resp BP Pulse Ox
97.0 F 67 16 106/52 98
01/13/25 09:28 01/13/25 09:28 01/13/25 09:28 01/13/25 09:28 01/13/25 09:28
Physical Exam
Constitutional: No Acute Distress
Eyes: No Conjunctival Hemorrhage and Sclera Anicteric
Cardiovascular: Regular Rate, S1/S2 and Other (ICD site no erythema/induration)
Pulmonary: Clear
Gastrointestinal: Soft, Non Tender, Non Distended and Normal Bowel Sounds
Extremities: Edema (BLE lymphedema) and Venous Insufficiency
Neurological: Awake, Alert and AO x 3
Objective Data
Lab Data
Lab Results
01/13/25 04:03
01/13/25 04:54
PT 20.2 Sec (11.4-14.6) H 01/11/25 02:35
INR 1.67 01/11/25 02:35
APTT 53.4 Sec (23.4-35.0) H 01/11/25 02:35
Estimated Creat Clear 37 ml/min 01/13/25 04:54
Lactic Acid Cancelled 01/10/25 23:44
Total Bilirubin 0.8 mg/dl (0.2-1.3) 01/13/25 04:54
AST 34 U/L (14-36) 01/13/25 04:54
ALT 26 U/L (0-35) 01/13/25 04:54
Alkaline Phosphatase 94 U/L (38-126) 01/13/25 04:54
Most recent labs reviewed.
Micro Results:
01/10/25 15:57 Blood Culture - Preliminary
Blood/Venous No Growth in 48 hours- Final report to follow
01/10/25 15:57 Blood Culture - Preliminary
Blood/Venous No Growth in 48 hours- Final report to follow
01/10/25 23:17 Urine Culture - Final
Urine
Imaging:
01/11/2025 CXR (portable): film is rotated subsegmental atelectatic changes at the right base. No pneumothorax. Please see full dictation for additional detail. Film personally viewed.
[2025-01-13] MEDS: SINEMET 25-100 1 TABLET PO ×2 (16:33→21:20)
--- NOTE | 2025-01-13 17:07 | PTCARENOTE ---
Assessments unchanged thru shift. VS improved thru shift maintaining map and systolics as ordered. Follow up meds with pharmacy. Patient two person assist to bathroom commode. Assist with walker to chair. Await dinner at this assessment. Continue
follow up medications via Emar. Hourly rounds ongoing with use of call jeronimo as needed. Update with family at bedside earlier this shift. Hospitalist team at bedside earlier this shift with updates for patient.
[2025-01-13] MEDS: PROTONIX 40 MG PO (21:19)
[2025-01-13] MEDS: ANUSOL HC 25 MG RECTAL (21:21)
--- NOTE | 2025-01-13 22:39 | PTCARENOTE ---
Lita flynn placed back on patient.
No further changes in assessment.
[2025-01-14] VITALS (12 sets, daily range): BP systolic 108–152; BP diastolic 54–91; BMI 39.0
[2025-01-14] MEDS: SOLU-CORTEF 50 MG IV ×2 (00:05→04:59)
[2025-01-14] MEDS: SYNTHROID 137 MCG PO (05:00)
[2025-01-14 05:33] LABS: Hematocrit 26.2 % (37.0-47.0); Hemoglobin 8.4 g/dL (12.0-16.0); Mean Corp Hgb Conc. 32.1 g/dL (33.0-37.0); Mean Corpuscular Volume 113.9 fL (81.0-99.0); Nucleated Red Blood Cells % 0 %; Platelet Count 222 10^3/uL (130-400); Red Cell Dist. Width 18.4 % (11.5-14.5)
[2025-01-14 05:55] LABS: ALT (SGPT) < 10 U/L (0-35); AST (SGOT) 30 U/L (14-36); Albumin 2.4 g/dl (3.5-5.0); Alkaline Phosphatase 82 U/L (38-126); Blood Urea Nitrogen 28 mg/dl (7-17); Calcium 8.4 mg/dl (8.4-10.2); Carbon Dioxide 29 mmol/L (22-30); Chloride 108 mmol/L (98-107); Estimated Creatinine Clearance 40 ml/min; Glucose 96 mg/dl (70-99); Potassium 3.7 mmol/L (3.5-5.1); Sodium 139 mmol/L (135-145); Total Protein 5.2 g/dl (6.3-8.2); eGFR 38.03
[2025-01-14] MEDS: ELIQUIS 2.5 MG PO ×2 (08:16→20:43)
[2025-01-14] MEDS: SINEMET 25-100 1 TABLET PO ×3 (08:16→20:44)
[2025-01-14] MEDS: OSCAL 500 + D 500 MG PO ×2 (08:16→20:43)
[2025-01-14] MEDS: PACERONE 200 MG PO (08:22)
[2025-01-14] MEDS: FLORINEF 0.1 MG PO (08:23)
[2025-01-14] MEDS: PROTONIX 40 MG PO ×2 (08:23→20:43)
[2025-01-14] MEDS: THERAGRAN 1 TABLET PO (08:23)
[2025-01-14] MEDS: VITAMIN B-12 1000 MCG PO (08:23)
[2025-01-14] MEDS: MUCINEX 1200 MG PO ×2 (08:23→20:43)
[2025-01-14] MEDS: VITAMIN B1 100 MG PO (08:24)
--- NOTE | 2025-01-14 09:37 | PTCARENOTE ---
Update with Hospitalist team at bedside for patient. Follow up plan of cares. Plan to transition to medical surgical floor. Assessment follow up, vital sign follow up and overall patient self assessment. (Temperature sensations; warm, cold, chills,
as noted by patient) Follow up with hospitalist team thru shift. Will update new orders and plan of cares. Staff in with patient continue working on nutrition, PT/OT (mobility protocols), teaching and supportive trends.
--- NOTE | 2025-01-14 11:10 | W.PN.HOSP.TC ---
Today's Communication/Plan
-
dont use warming blanket unless patient feeling cold
Patient asymptomatic at this time, cough resolved, no sputum
PT/OT, labs in AM possible d/c
Assessment / Plan
Assessment / Plan
79yo F with PMHX of cholecystectoiny, Parkinsons, hypothyroidism, Afib on eliquis, poor ambulatory capacity, came with chills for few days before admission, found shock and hypothermia. Patient hd Hx of the same with negative w/u, possibly due to
autonomic dysfuction discharged from at the end of Nov 2024. ALso found lower GIB 2/2 bleeding hemmorhoids vs interstinal ischemia due to shock.
A/P:
#Shock, unclear mechanism, cannot r//o autonomic dysfunction - neurogenic hypotension vs proctitis
#Hypothermia
#Hypothyroidism
#Cough with sputum
Random cortisol low, however ACTH neg for adrenal insufficiency
Zosyn, pending further ID recommendations: CXR - no pneumonia, no signs of UTI with absent pyuria, Bcx NTD
Warming blanket
Planned for LP on last admission, but since improved - deferred by neurologist.
#Small R kidney lesions, probably cyst
#L adrenal lesion: old hemorrhage or cyst
Repeat outpatient CT in 6mo
#Hx of positive RF and antiCCP Ab
might benefit from outpatient pest control service sales agent
#Macrocytic anemia
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
b12 and folate WNL
Hematology consult: recent SPEP, Immunoglobulins, FLC, haptoglobin
#SNOW on CKD stage 3b
resolved
Cr baseline 1.2-1.4
Hydrate
maintain BP
follow Cr
#Parkinsonism with hallucination and dysautonomia
As per neurology assessment 05/05/24
Levodopa can help with hypothermia - will initiate
Liberalize fluid intake
avoid BP meds
Waste-high stocking, abdominal binder
Midodrine - but insufficient increase
Add Fludrocortisone
Wean off pressors
Recent MRI brain in Nov 2024 - no acute findings
#Paroxysmal Afib
well controlled
cont Amiodarone
Eliquis: decrease dose as CR>1.5 and age =79yo
#Lower GIB 2/2 hemorrhoids
GI consult: cont Eliquis
Follow CBC
#Spinal stenosis
Hx of chronic back pain with b/l LE numbness, onset years ago, aready followed by outpatient physicians as per patient
Pain mgmt
DVT ppx Eliquis
Full code
I have spent at least 57min reviewing chart, test results, communication with consultants and providing direct patient care
Anticipated Discharge: Within 24 hours
Subjective/Interval History
-
Date of Service: January 14, 2025
Objective Data
-
Labs:
Laboratory Results
01/14/25
04:58
WBC 5.4
Hgb 8.4 L
Hct 26.2 L
Plt Count 222
Sodium 139
Potassium 3.7
Chloride 108 H
Carbon Dioxide 29
BUN 28 H
Creatinine 1.4 H
Glucose 96
Calcium 8.4
Total Bilirubin 0.5
AST 30
ALT < 10
Alkaline Phosphatase 82
Vital Signs:
Vital Signs
Temp Pulse Resp BP Pulse Ox
96.2 F L 61 22 109/56 97
01/14/25 11:03 01/14/25 09:29 01/14/25 09:29 01/14/25 09:29 01/14/25 09:29
I&O
01/13/25 01/14/25 01/15/25
06:59 06:59 06:59
Intake Total 2200.0 / 2260.0 1100 / 1100 240 / 240
Output Total 1800 / 1800 1550 / 1550 600 / 600
Balance 400.0 / 460.0 -450 / -450 -360 / -360
--- NOTE | 2025-01-14 11:13 | W.PN.UPDATE ---
Update Note
Progress Note Update
ACTH test neg for primary adrenal insufficiency. Unlikely secondary with elevated TSH. Stop Hydrocortisone
[2025-01-14] MEDS: SOLU-CORTEF IV (11:14)
--- NOTE | 2025-01-14 17:24 | PTCARENOTE ---
Assessment unchanged. Patient in an d out of bed to chair. In and out of bed to commode. Assist with cares, feeds and mobility practice thru dayshift. Family in and out during day. Updated plan of cares. Updated plan of transfer. Await to talk to
case management for rehabilitation placement and preference. Continue teaching and supportive cares.
--- NOTE | 2025-01-14 20:00 | PTCARENOTE ---
Assumed care of patient. Patient is resting comfortably out of bed in chair. Alert and oriented x3, no complaints of pain at this time. Patient is in normal sinus rhythm with adequate blood pressures. Edema in hands and lower extremities, pulses
obtained. Lungs are clear on room air. Abdomen is soft and non-tender. Continent to toilet. Bilateral lower extremities with vascular disease. IV sites are c/d/i.
[2025-01-14] MEDS: ANUSOL HC 25 MG RECTAL (20:44)
[2025-01-15] VITALS (9 sets, daily range): BP systolic 105–138; BP diastolic 56–73; BMI 35.8
--- NOTE | 2025-01-15 00:30 | PTCARENOTE ---
Patient's temperature is 96.4 rectally. Patient states that she does not feel cold. Patient is covered in multiple blankets and is comfortable at this time. No changes in assessment.
[2025-01-15 00:55] LABS: Free Kappa Light Chains,Quant 108.67 mg/L (3.30-19.40); Free Lambda Light Chains,Quant 55.65 mg/L (5.71-26.30); Kappa/Lambda Fr Light Ratio 1.95 (0.26-1.65)
[2025-01-15 04:15] LABS: Hematocrit 26.9 % (37.0-47.0); Hemoglobin 8.5 g/dL (12.0-16.0); Mean Corp Hgb Conc. 31.6 g/dL (33.0-37.0); Mean Corpuscular Volume 109.8 fL (81.0-99.0); Nucleated Red Blood Cells % 0 %; Platelet Count 204 10^3/uL (130-400); Red Cell Dist. Width 18.3 % (11.5-14.5)
[2025-01-15 04:34] LABS: Blood Urea Nitrogen 27 mg/dl (7-17); Calcium 8.5 mg/dl (8.4-10.2); Carbon Dioxide 29 mmol/L (22-30); Chloride 106 mmol/L (98-107); Estimated Creatinine Clearance 43 ml/min; Glucose 82 mg/dl (70-99); Potassium 3.3 mmol/L (3.5-5.1); Sodium 135 mmol/L (135-145); eGFR 41.57
[2025-01-15] MEDS: SYNTHROID 137 MCG PO (05:42)
[2025-01-15] MEDS: KCL 40 MEQ PO ×2 (05:42→06:33)
[2025-01-15 06:48] LABS: Magnesium 2.2 mg/dl (1.6-2.3)
[2025-01-15] MEDS: FLORINEF 0.1 MG PO (07:37)
[2025-01-15] MEDS: MUCINEX 1200 MG PO ×2 (07:37→21:04)
[2025-01-15] MEDS: VITAMIN B1 100 MG PO (07:37)
[2025-01-15] MEDS: THERAGRAN 1 TABLET PO (07:37)
[2025-01-15] MEDS: ELIQUIS 2.5 MG PO ×2 (07:37→21:01)
[2025-01-15] MEDS: VITAMIN B-12 1000 MCG PO (07:37)
[2025-01-15] MEDS: PROTONIX 40 MG PO ×2 (07:38→21:02)
[2025-01-15] MEDS: SINEMET 25-100 1 TABLET PO ×3 (07:38→21:01)
[2025-01-15] MEDS: PACERONE 200 MG PO (07:38)
[2025-01-15] MEDS: OSCAL 500 + D 500 MG PO ×2 (07:38→21:04)
--- NOTE | 2025-01-15 08:29 | W.PN.HOSP.TC ---
Today's Communication/Plan
-
tremor resolved on Sinemet
Outpatient neurologist
remains w/o complains off Abx, minimally hypothermic off warming blanket
start rehab placement
Assessment / Plan
Assessment / Plan
79yo F with PMHX of cholecystectoiny, Parkinsons, hypothyroidism, Afib on eliquis, poor ambulatory capacity, came with chills for few days before admission, found shock and hypothermia. Patient hd Hx of the same with negative w/u, possibly due to
autonomic dysfuction discharged from at the end of Nov 2024. ALso found lower GIB 2/2 bleeding hemorrhoids vs interspinal ischemia due to shock that later resolved and anemia was not progressing while continued Eliquis. Hematology evaluated for
monoclonal spike seen on previous admssion - outpatient f/u. Tremors improved on Sinemet. Outpatient neurologist advised. Repeast TSH in 2-3 weks since new Levothyroxine started. Medically stable for d/c to STR as recommended by PT/OT
A/P:
#Shock, unclear mechanism, cannot r//o autonomic dysfunction - neurogenic hypotension vs proctitis
#Hypothermia
#Hypothyroidism
#Cough with sputum
Random cortisol low, however ACTH neg for adrenal insufficiency
Zosyn, pending further ID recommendations: CXR - no pneumonia, no signs of UTI with absent pyuria, Bcx NTD
Warming blanket
Planned for LP on last admission, but since improved - deferred by neurologist.
#Small R kidney lesions, probably cyst
#L adrenal lesion: old hemorrhage or cyst
Repeat outpatient CT in 6mo
#Hx of positive RF and antiCCP Ab
might benefit from outpatient medical lab technologist
#Macrocytic anemia
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
b12 and folate WNL
Hematology consult: recent SPEP, Immunoglobulins, FLC, haptoglobin
#SNOW on CKD stage 3b
resolved
Cr baseline 1.2-1.4
Hydrate
maintain BP
follow Cr
#Parkinsonism with hallucination and dysautonomia
As per neurology assessment 05/05/24
Levodopa can help with hypothermia - will initiate
Liberalize fluid intake
avoid BP meds
Waste-high stocking, abdominal binder
Midodrine - but insufficient increase
Add Fludrocortisone
Wean off pressors
Recent MRI brain in Nov 2024 - no acute findings
#Paroxysmal Afib
well controlled
cont Amiodarone
Eliquis: decrease dose as CR>1.5 and age =79yo
#Lower GIB 2/2 hemorrhoids
GI consult: cont Eliquis
Follow CBC
#Spinal stenosis
Hx of chronic back pain with b/l LE numbness, onset years ago, already followed by outpatient physicians as per patient
Pain mgmt
DVT ppx Eliquis
Full code
I have spent at least 51min reviewing chart, test results, communication with consultants and providing direct patient care
Anticipated Discharge: Within 24 hours
Subjective/Interval History
-
Date of Service: January 15, 2025
Objective Data
-
Labs:
Laboratory Results
01/15/25
03:44
WBC 4.1 L
Hgb 8.5 L
Hct 26.9 L
Plt Count 204
Sodium 135
Potassium 3.3 L
Chloride 106
Carbon Dioxide 29
BUN 27 H
Creatinine 1.3 H
Glucose 82
Calcium 8.5
Vital Signs:
Vital Signs
Temp Pulse Resp BP Pulse Ox
96 F L 61 16 119/72 97
01/15/25 04:00 01/15/25 07:37 01/15/25 07:00 01/15/25 07:38 01/15/25 07:00
I&O
01/14/25 01/15/25 01/16/25
06:59 06:59 06:59
Intake Total 1100 / 1100 920 / 920
Output Total 1550 / 1550 700 / 700
Balance -450 / -450 220 / 220
Review of Systems
-
History Source: Patient
All other systems: Reviewed and negative
Physical Exam
-
General: No Apparent Distress
HEENT: Normocephalic
Respiratory: Clear to Auscultation
Cardiac: Regular Rhythm
GI: Soft, Nontender and Nondistended
Musculoskeletal: No Clubbing, No Cyanosis, Edema, Right Lower Extrem and Edema, Left Lower Extrem
Skin: Warm
Neuro: Awake, Alert, Oriented, AO x 3 and No Motor Deficits
Psych: Calm
--- NOTE | 2025-01-15 09:31 | W.PN.ID1 ---
Date of Service
Date of Service: January 15, 2025
Today's Communication
Monitor off antibiotics
Assessment / Plan
s/p Hypotension
- off norepinephrine
Hypothermia; improved
SNOW on CKD
P A-fib
HTN
Class III obesity
Rheumatoid arthritis, no on Tx
Hypothyroidism
Hypertrophic cardiomyopathy
Venous insufficiency
LE lymphedema
Recommendations:
No overt signs of an infectious process.
Blood cx's neg to date.
UA no sig wbc, >30 sq epith suggestive of contaminated specimen
Continue to observe off abx
Monitor white count and temperature curve.
Continue with supportive measures.
Chief Complaint
-: Other (Hypothermia/hypotension)
Subjective / Review of Systems
Patient seen and examined. No significant events overnight. Core temperature remains on the low side. Denies specific complaints. Denies pain.
Review of Systems: No Fever
Vital Signs / Physical Exam
Vital Signs
Vital Signs
Temp Pulse Resp BP Pulse Ox
96 F L 61 16 119/72 97
01/15/25 04:00 01/15/25 07:37 01/15/25 07:00 01/15/25 07:38 01/15/25 07:00
Physical Exam
Constitutional: No Acute Distress, Chronically Ill, Non-toxic and Obese
Eyes: No Conjunctival Hemorrhage and Sclera Anicteric
Cardiovascular: Regular Rate, S1/S2 and Other (ICD site no erythema/induration)
Pulmonary: Clear
Gastrointestinal: Soft, Non Tender, Non Distended and Normal Bowel Sounds
Extremities: Edema (BLE lymphedema) and Venous Insufficiency
Neurological: Awake, Alert and AO x 3
Psychological: Calm
Objective Data
Lab Data
Lab Results
01/15/25 03:44
01/15/25 03:44
PT 20.2 Sec (11.4-14.6) H 01/11/25 02:35
INR 1.67 01/11/25 02:35
APTT 53.4 Sec (23.4-35.0) H 01/11/25 02:35
Estimated Creat Clear 43 ml/min 01/15/25 03:44
Lactic Acid Cancelled 01/10/25 23:44
Total Bilirubin 0.5 mg/dl (0.2-1.3) 01/14/25 04:58
AST 30 U/L (14-36) 01/14/25 04:58
ALT < 10 U/L (0-35) 01/14/25 04:58
Alkaline Phosphatase 82 U/L (38-126) 01/14/25 04:58
Most recent labs reviewed.
Micro Results:
01/10/25 15:57 Blood Culture - Preliminary
Blood/Venous No Growth in 4 days- Final report to follow
01/10/25 15:57 Blood Culture - Preliminary
Blood/Venous No Growth in 4 days- Final report to follow
01/10/25 23:17 Urine Culture - Final
Urine
Imaging:
01/11/2025 CXR (portable): film is rotated subsegmental atelectatic changes at the right base. No pneumothorax. Please see full dictation for additional detail. Film personally viewed.
Chest X-Ray: Image Reviewed and Report Reviewed
Care Review
Plan reviewed with: Other Provider (Resident)
--- NOTE | 2025-01-15 11:39 | W.PN.ONC ---
Today's Communication / Plan
-
-Low risk MGUS, will defer to primary care provider regarding need for outpatient hematology/oncology referral
-Repeat HEYDI& SPEP and Serum Light Chains in 3 months, follow up with PCP.
-Hematology/Oncology will sign off. Thank you
Impression
Impression
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
Macrocytic Hyperchromic Anemia
Lower GI bleeding
Acute Kidney Injury
Hypokalemia
Plan
Plan
Iron studies, B12, Folate studies, LDH, haptoglobin- wnl, ferretin slightly elevated, B12>1000
Reticulocyte elevated likely d/t chronic GI bleeding vs. CKD vs. anemia of chronic disease
Free Lowden LC- 108.67, Free Lambda 55.56, ratio: 1.95
Small IgG kappa monoclonal spike 0.24g/dl
Macrocytic anemia: hgb 8.5
-Low risk MGUS, will defer to primary care provider regarding need for outpatient hematology/oncology referral
-Repeat HEYDI& SPEP and Serum Light Chains in 3 months, follow up with PCP.
-Hematology/Oncology will sign off. Thank you
Subjective/Objective
Subjective/Objective
Fatigue feels better. Passing brown stool without blood streak. Denies SOB, chest pain, n/v, fever, abdominal pain.
Vital Signs:
Vital Signs
Temp Pulse Resp BP Pulse Ox
96 F L 60 17 125/63 95
e 01/15/25 04:00 01/15/25 09:00 01/15/25 10:00 01/15/25 08:00 01/15/25 09:00
Lab Results:
Laboratory Data
WBC 4.1 10^3/uL (4.8-10.8) L 01/15/25 03:44
Hgb 8.5 g/dL (12.0-16.0) L 01/15/25 03:44
Plt Count 204 10^3/uL (130-400) 01/15/25 03:44
PT 20.2 Sec (11.4-14.6) H 01/11/25 02:35
INR 1.67 01/11/25 02:35
APTT 53.4 Sec (23.4-35.0) H 01/11/25 02:35
eGFR 41.57 01/15/25 03:44
--- NOTE | 2025-01-15 13:25 | PTCARENOTE ---
notified Dr. Jolley of patient's BP 138/66. Midodrine dose adjusted. physician also aware that temp was 94.5. Applied warm blankets but patient had no complaints. no need for pastora hugger at this time per MD.
--- NOTE | 2025-01-15 14:02 | PTCARENOTE ---
patient transferred to 3rd floor via stretcher. all belongings packed up.
--- NOTE | 2025-01-15 14:11 | CM ---
Chart reviewed and case checker met with patient this am, to review physical therapy recommendations, per physical therapy recommendation is for skilled placement. Skilled options reviewed with patient and patient has selected [facility] and [facility] referrals sent in [facility].
Plan; Skilled placement.
[2025-01-15] MEDS: ANUSOL HC 25 MG RECTAL (21:01)
[2025-01-16] VITALS (7 sets, daily range): BP systolic 105–122; BP diastolic 53–68; PULSE 64; O2SAT 99
--- NOTE | 2025-01-16 03:11 | W.PN.UPDATE ---
Update Note
Progress Note Update
Temp of 92.9 rectally, Cristy hugger placed Temp of 93.8-> 96.0 at present. Otherwise stable VS, no other new complaints.
hx of hypothermia and Cristy hugger use.
[2025-01-16] MEDS: SYNTHROID 137 MCG PO (05:16)
--- NOTE | 2025-01-16 06:18 | PTCARENOTE ---
patient temp 92.9. AOx3. all other VS stable. LORENA stover notified. new orders placed for pastora hugger. pastora hugger placed. temperature checked per protocol. at 0500 patient reached goal temp of 97.0. pastora hugger removed. patient also
complained of R calf pain. LORENA notified. no new orders placed.
[2025-01-16] MEDS: PROTONIX 40 MG PO ×2 (08:29→19:29)
[2025-01-16] MEDS: ELIQUIS 2.5 MG PO ×2 (08:29→19:29)
[2025-01-16] MEDS: VITAMIN B-12 1000 MCG PO (08:29)
[2025-01-16] MEDS: SINEMET 25-100 1 TABLET PO ×3 (08:29→21:31)
[2025-01-16] MEDS: OSCAL 500 + D 500 MG PO ×2 (08:30→19:29)
[2025-01-16] MEDS: MUCINEX 1200 MG PO ×2 (08:30→19:29)
[2025-01-16] MEDS: THERAGRAN 1 TABLET PO (08:30)
[2025-01-16] MEDS: VITAMIN B1 100 MG PO (08:30)
[2025-01-16] MEDS: PACERONE 200 MG PO (08:30)
[2025-01-16] MEDS: FLORINEF 0.1 MG PO (08:31)
[2025-01-16] MEDS: LASIX 20 MG IV (10:58)
--- NOTE | 2025-01-16 11:21 | W.PN.HOSP.TC ---
Today's Communication/Plan
-
repeat labs
Lasix
Watch for worsening of abd pain
Assessment / Plan
Assessment / Plan
79yo F with PMHX of cholecystectoiny, Parkinsons, hypothyroidism, Afib on eliquis, poor ambulatory capacity, came with chills for few days before admission, found shock and hypothermia. Patient hd Hx of the same with negative w/u, possibly due to
autonomic dysfuction discharged from at the end of Nov 2024. ALso found lower GIB 2/2 bleeding hemorrhoids vs interspinal ischemia due to shock that later resolved and anemia was not progressing while continued Eliquis. Hematology evaluated for
monoclonal spike seen on previous admssion - outpatient f/u. Tremors improved on Sinemet. Outpatient neurologist advised. Repeast TSH in 2-3 weks since new Levothyroxine started. Medically stable for d/c to STR as recommended by PT/OT
A/P:
#Shock, unclear mechanism, cannot r//o autonomic dysfunction - neurogenic hypotension vs proctitis
#Hypothermia
#Hypothyroidism
#Cough with sputum
Random cortisol low, however ACTH neg for adrenal insufficiency
Zosyn, pending further ID recommendations: CXR - no pneumonia, no signs of UTI with absent pyuria, Bcx NTD
Warming blanket
Planned for LP on last admission, but since improved - deferred by neurologist.
#Abdominal distension
patient has BM, no concern for obstruction
recheck labs and proBNP
Can be volume overload with hydration, holding Lasix and Fludrocortisone
#Small R kidney lesions, probably cyst
#L adrenal lesion: old hemorrhage or cyst
Repeat outpatient CT in 6mo
#Hx of positive RF and antiCCP Ab
might benefit from outpatient loop cutter
#Macrocytic anemia
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
b12 and folate WNL
Hematology consult: recent SPEP, Immunoglobulins, FLC, haptoglobin
#SNOW on CKD stage 3b
resolved
Cr baseline 1.2-1.4
Hydrate
maintain BP
follow Cr
#Parkinsonism with hallucination and dysautonomia
As per neurology assessment 05/05/24
Levodopa can help with hypothermia - will initiate
Liberalize fluid intake
avoid BP meds
Waste-high stocking, abdominal binder
Midodrine - but insufficient increase
Add Fludrocortisone
Wean off pressors
Recent MRI brain in Nov 2024 - no acute findings
#Paroxysmal Afib
well controlled
cont Amiodarone
Eliquis: decrease dose as CR>1.5 and age =79yo
#Lower GIB 2/2 hemorrhoids
GI consult: cont Eliquis
Follow CBC
#Spinal stenosis
Hx of chronic back pain with b/l LE numbness, onset years ago, already followed by outpatient physicians as per patient
Pain mgmt
DVT ppx Eliquis
Full code
I have spent at least 51min reviewing chart, test results, communication with consultants and providing direct patient care
Anticipated Discharge: Within 24 hours
Subjective/Interval History
-
Date of Service: January 16, 2025
Objective Data
-
Labs:
Laboratory Results
01/16/25 01/16/25
10:44 11:11
WBC Cancelled Pending
Hgb Cancelled Pending
Hct Cancelled Pending
Plt Count Cancelled Pending
Sodium Pending
Potassium Pending
Chloride Pending
Carbon Dioxide Pending
BUN Pending
Creatinine Pending
Glucose Pending
Calcium Pending
Total Bilirubin Pending
AST Pending
ALT Pending
Alkaline Phosphatase Pending
Vital Signs:
Vital Signs
Temp Pulse Resp BP Pulse Ox
97.8 F 78 17 117/68 95
11/11/25 10:57 01/16/25 10:57 01/16/25 10:57 01/16/25 10:57 01/16/25 10:57
I&O
01/15/25 01/16/25 01/17/25
06:59 06:59 06:59
Intake Total 920 / 920 1410 / 1410
Output Total 700 / 700
Balance 220 / 220 1410 / 1410
Review of Systems
-
History Source: Patient
All other systems: Reviewed and negative
Abdomen/GI: Reports Bloated
Physical Exam
-
General: No Apparent Distress
HEENT: Normocephalic
Respiratory: Clear to Auscultation
Cardiac: Regular Rhythm
GI: Nontender and Distended
Musculoskeletal: No Clubbing, No Cyanosis and No Edema
Neuro: Awake, Alert, Oriented and AO x 3
Psych: Calm
[2025-01-16 11:32] LABS: ALT (SGPT) < 10 U/L (0-35); AST (SGOT) 29 U/L (14-36); Albumin 2.7 g/dl (3.5-5.0); Alkaline Phosphatase 90 U/L (38-126); Blood Urea Nitrogen 24 mg/dl (7-17); Calcium 8.4 mg/dl (8.4-10.2); Carbon Dioxide 31 mmol/L (22-30); Chloride 107 mmol/L (98-107); Estimated Creatinine Clearance 38 ml/min; Glucose 80 mg/dl (70-99); Magnesium 2.1 mg/dl (1.6-2.3); Potassium 4.5 mmol/L (3.5-5.1); Sodium 138 mmol/L (135-145); Total Protein 5.6 g/dl (6.3-8.2); eGFR 38.03
[2025-01-16 12:03] LABS: Hematocrit 28.0 % (37.0-47.0); Hemoglobin 8.6 g/dL (12.0-16.0); Mean Corp Hgb Conc. 30.7 g/dL (33.0-37.0); Mean Corpuscular Volume 118.1 fL (81.0-99.0); Nucleated Red Blood Cells % 0 %; Platelet Count 207 10^3/uL (130-400); Red Cell Dist. Width 18.4 % (11.5-14.5)
--- NOTE | 2025-01-16 14:29 | W.PN.ID1 ---
Date of Service
Date of Service: January 16, 2025
Today's Communication
Sign off.
Assessment / Plan
s/p Hypotension
- off norepinephrine
Hypothermia; improved
SNOW on CKD
P A-fib
HTN
Class III obesity
Rheumatoid arthritis, no on Tx
Hypothyroidism
Hypertrophic cardiomyopathy
Venous insufficiency
LE lymphedema
Recommendations:
No overt signs of an infectious process.
Blood cx's neg to date.
UA no sig wbc, >30 sq epith suggestive of contaminated specimen
Continue off abx
Continue with supportive measures.
Little more to offer from a Infectious Diseases standpoint.
Will see again at your request.
����������������������������������������������������������
Chief Complaint
-: Other (Hypothermia/hypotension)
Subjective / Review of Systems
Review of Systems: No Fever, No Chills and No Abdominal Pain
Vital Signs / Physical Exam
Vital Signs
Vital Signs
Temp Pulse Resp BP Pulse Ox
97.8 F 78 17 117/68 95
01/16/25 10:57 01/16/25 10:57 01/16/25 10:57 01/16/25 10:57 01/16/25 10:57
Physical Exam
Constitutional: No Acute Distress, Chronically Ill, Non-toxic and Obese
Eyes: No Conjunctival Hemorrhage and Sclera Anicteric
Cardiovascular: Regular Rate and S1/S2
Pulmonary: Clear
Gastrointestinal: Soft, Non Tender, Non Distended and Normal Bowel Sounds
Extremities: Edema (BLE lymphedema) and Venous Insufficiency
Neurological: Awake, Alert and AO x 3
Psychological: Calm
Objective Data
Lab Data
Lab Results
01/16/25 11:48
01/16/25 10:44
PT 20.2 Sec (11.4-14.6) H 01/11/25 02:35
INR 1.67 01/11/25 02:35
APTT 53.4 Sec (23.4-35.0) H 01/11/25 02:35
Estimated Creat Clear 38 ml/min 01/16/25 10:44
Lactic Acid Cancelled 01/10/25 23:44
Total Bilirubin 0.6 mg/dl (0.2-1.3) 01/16/25 10:44
AST 29 U/L (14-36) 01/16/25 10:44
ALT < 10 U/L (0-35) 01/16/25 10:44
Alkaline Phosphatase 90 U/L (38-126) 01/16/25 10:44
Most recent labs reviewed.
Micro Results:
01/10/25 15:57 Blood Culture - Final
Blood/Venous No Growth - Final Report
01/10/25 15:57 Blood Culture - Final
Blood/Venous No Growth - Final Report
01/10/25 23:17 Urine Culture - Final
Urine
Imaging:
01/11/2025 CXR (portable): film is rotated subsegmental atelectatic changes at the right base. No pneumothorax. Please see full dictation for additional detail. Film personally viewed.
[2025-01-16] MEDS: ANUSOL HC 25 MG RECTAL (21:31)
[2025-01-17] MEDS: ANUSOL HC 25 MG RECTAL ×2 (00:17→23:08)
[2025-01-17] MEDS: TYLENOL 650 MG PO (01:29)
--- NOTE | 2025-01-17 01:35 | W.PN.UPDATE ---
Update Note
Progress Note Update
Temp 94.4 skin slightly cold to touch. Will order Lita flynn
Patient c/o hemorrhoids discomfort, Anusol in place
[2025-01-17 03:30] VITALS: BP 129/62
--- NOTE | 2025-01-17 04:32 | PTCARENOTE ---
patient rectal temperature 95.1. STREETCAR REPAIRERDOREEN Mitchell Saji notified. no new orders placed. active pastora hugger order in place. per order patient goal temp 97. pastora hugger placed on patient. STREETCAR REPAIRER notified. order for pastora hugger cancelled. pastora hugger
removed. during 2300 VS patient rectal temp was 94.4. STREETCAR REPAIRER notified. STREETCAR REPAIRER notified this RN that there was an active order for a warming blanket. blanket warmer placed. patient complaining of severe 10/10 hemorrhoid pain and R lower back pain
radiating down leg. STREETCAR REPAIRER notified. New orders for Anusol Hc placed. See MAR for administration. patient still complaining of 10/10 pain for hemorrhoids and R lower back pain. patient requested Tylenol. STREETCAR REPAIRER notified of patients request. new order
placed for Tylenol. See MAR for administration.
[2025-01-17] MEDS: SYNTHROID 137 MCG PO (05:03)
[2025-01-17 07:04] LABS: Hematocrit 27.1 % (37.0-47.0); Hemoglobin 8.6 g/dL (12.0-16.0); Mean Corp Hgb Conc. 31.7 g/dL (33.0-37.0); Mean Corpuscular Volume 111.1 fL (81.0-99.0); Nucleated Red Blood Cells % 0 %; Platelet Count 199 10^3/uL (130-400); Red Cell Dist. Width 17.8 % (11.5-14.5)
[2025-01-17 07:33] LABS: ALT (SGPT) < 10 U/L (0-35); AST (SGOT) 22 U/L (14-36); Albumin 2.2 g/dl (3.5-5.0); Alkaline Phosphatase 82 U/L (38-126); Blood Urea Nitrogen 25 mg/dl (7-17); Calcium 8.3 mg/dl (8.4-10.2); Carbon Dioxide 32 mmol/L (22-30); Chloride 104 mmol/L (98-107); Estimated Creatinine Clearance 38 ml/min; Glucose 62 mg/dl (70-99); Potassium 4.0 mmol/L (3.5-5.1); Sodium 137 mmol/L (135-145); Total Protein 4.8 g/dl (6.3-8.2); eGFR 38.03
[2025-01-17 07:41] VITALS: BP 112/54
--- NOTE | 2025-01-17 07:42 | PTCARENOTE ---
Patient with rectal temperature of 96.1F and an oral temperature of 97.3F while on warming blanket. Pt with no complaints of feeling cold, MD made aware of patients temperature. Pt taken off warming blanket as ok per MD due to no complaints. Will
continue to monitor temperature and plan of care ongoing.
[2025-01-17] MEDS: SINEMET 25-100 1 TABLET PO (08:38)
[2025-01-17] MEDS: ELIQUIS 2.5 MG PO ×2 (08:39→20:46)
[2025-01-17] MEDS: MUCINEX 1200 MG PO ×2 (08:39→20:46)
[2025-01-17] MEDS: VITAMIN B1 100 MG PO (08:39)
[2025-01-17] MEDS: OSCAL 500 + D 500 MG PO ×2 (08:39→20:46)
[2025-01-17] MEDS: FLORINEF 0.1 MG PO (08:39)
[2025-01-17] MEDS: VITAMIN B-12 1000 MCG PO (08:39)
[2025-01-17] MEDS: PROTONIX 40 MG PO ×2 (08:39→20:46)
[2025-01-17] MEDS: PACERONE 200 MG PO (08:39)
[2025-01-17] MEDS: THERAGRAN 1 TABLET PO (08:40)
[2025-01-17 08:42] LABS: Cortisol, Random 10.0 ug/dl
[2025-01-17] MEDS: LASIX 20 MG IV (09:07)
--- NOTE | 2025-01-17 09:41 | W.PN.HOSP.TC ---
Today's Communication/Plan
-
medically stable for d/c - CM informed
Assessment / Plan
Assessment / Plan
79yo F with PMHX of cholecystectoiny, Parkinsons, hypothyroidism, Afib on eliquis, poor ambulatory capacity, came with chills for few days before admission, found shock and hypothermia. Patient hd Hx of the same with negative w/u, possibly due to
autonomic dysfuction discharged from at the end of Nov 2024. ALso found lower GIB 2/2 bleeding hemorrhoids vs interspinal ischemia due to shock that later resolved and anemia was not progressing while continued Eliquis. Hematology evaluated for
monoclonal spike seen on previous admssion - outpatient f/u. Tremors improved on Sinemet. Outpatient neurologist advised. Repeast TSH in 2-3 weks since new Levothyroxine started. Medically stable for d/c to STR as recommended by PT/OT
A/P:
#Shock, unclear mechanism, cannot r//o autonomic dysfunction - neurogenic hypotension vs proctitis
#Hypothermia
#Hypothyroidism
#Cough with sputum
Random cortisol low, however ACTH neg for adrenal insufficiency
Zosyn, pending further ID recommendations: CXR - no pneumonia, no signs of UTI with absent pyuria, Bcx NTD
Warming blanket
Planned for LP on last admission, but since improved - deferred by neurologist.
#Abdominal distension
resolved on Lasix
patient has BM, no concern for obstruction
Can be volume overload with hydration due to holding Lasix and Fludrocortisone
#Small R kidney lesions, probably cyst
#L adrenal lesion: old hemorrhage or cyst
Repeat outpatient CT in 6mo
#Hx of positive RF and antiCCP Ab
might benefit from outpatient national sales consultant
#Macrocytic anemia
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
b12 and folate WNL
Hematology consult: recent SPEP, Immunoglobulins, FLC, haptoglobin
#SNOW on CKD stage 3b
resolved
Cr baseline 1.2-1.4
Hydrate
maintain BP
follow Cr
#Parkinsonism with hallucination and dysautonomia
As per neurology assessment 05/05/24
Levodopa can help with hypothermia - will initiate
Liberalize fluid intake
avoid BP meds
Waste-high stocking, abdominal binder
Midodrine - but insufficient increase
Add Fludrocortisone
Wean off pressors
Recent MRI brain in Nov 2024 - no acute findings
#Paroxysmal Afib
well controlled
cont Amiodarone
Eliquis: decrease dose as CR>1.5 and age =79yo
#Lower GIB 2/2 hemorrhoids
GI consult: cont Eliquis
Follow CBC
#Spinal stenosis
Hx of chronic back pain with b/l LE numbness, onset years ago, already followed by outpatient physicians as per patient
Pain mgmt
DVT ppx Eliquis
Full code
I have spent at least 51min reviewing chart, test results, communication with consultants and providing direct patient care
Anticipated Discharge: Within 24 hours
Subjective/Interval History
-
Date of Service: January 17, 2025
Objective Data
-
Labs:
Laboratory Results
01/17/25
06:46
WBC 5.7
Hgb 8.6 L
Hct 27.1 L
Plt Count 199
Sodium 137
Potassium 4.0
Chloride 104
Carbon Dioxide 32 H
BUN 25 H
Creatinine 1.4 H
Glucose 62 L
Calcium 8.3 L
Total Bilirubin 0.5
AST 22
ALT < 10
Alkaline Phosphatase 82
Vital Signs:
Vital Signs
Temp Pulse Resp BP Pulse Ox
97.3 F 65 18 112/54 97
01/17/25 07:41 01/17/25 07:41 01/17/25 07:41 01/17/25 07:41 01/17/25 07:41
I&O
01/16/25 01/17/25 01/18/25
06:59 06:59 06:59
Intake Total 1410 / 1410 600 / 720 120 / 120
Balance 1410 / 1410 600 / 720 120 / 120
Review of Systems
-
History Source: Patient
All other systems: Reviewed and negative
Physical Exam
-
General: No Apparent Distress
HEENT: Normocephalic
Respiratory: Clear to Auscultation
Cardiac: Regular Rhythm
GI: Soft, Nontender and Nondistended
Skin: Warm
Neuro: Awake, Alert, Oriented and AO x 3
Psych: Calm
--- NOTE | 2025-01-17 10:46 | CM ---
Patient seen at bedside
PT rec SNF
[facility] accepted, patient agreeable to [place]
CM [facility] to [facility] [phone] to initiate auth
PENDED REFERENCE #: [id number]
FAXED CLINICALS TO [phone]
SPOKE WITH [facility], bed available
[facility] NPI #: [id number]
Dr. Vu Hamm NPI #: [id number]
PLAN: [facility], ONCE AUTH APPROVED
REPORT [phone]
FAX #: [phone]
--- NOTE | 2025-01-17 11:22 | W.PN.UPDATE ---
Update Note
Progress Note Update
Concern for orthotatic hypotension as BP dropped while sat in the chair. Will have to stop Sinemet (as dopamine can induce hypotension)
[2025-01-17 11:36] VITALS: BP 80/42
[2025-01-17] MEDS: NSS 500 IV (11:38)
[2025-01-17 14:51] VITALS: BP 119/62
--- NOTE | 2025-01-17 15:05 | PN.CDI ---
Addendum entered and electronically signed by Marlon Jolley MD 01/17/25 17:14:
no change in documenrtartion
Original Note:
CDI
- -
CDI:
Physician Documentation Request
Admit Date: 01/10/25 18:48
Dear Doctor,
Please review the following and provide your response in the progress notes.
Current documentation includes a diagnosis of orthostatic hypotension.
Clinical Indicators:
Pt admitted with Shock, unclear mechanism, cannot r//o autonomic dysfunction - neurogenic hypotension vs proctitis
01/17 PN: ' Parkinsonism with hallucination and dysautonomia
As per neurology assessment 05/05/24'
01/17 Update: ' Concern for orthotatic hypotension as BP dropped while sat in the chair....'
Please clarify which of the following is the most likely etiology of the above symptoms and treatment rendered:
Neurogenic Orthostatic Hypotension
Orthostatic Hypotension Only
Other
Use of terms such as suspected, likely, concern for, or probable (associated with a specific diagnosis that is being evaluated, monitored, or treated as if it exists) are acceptable and can be coded in the inpatient setting, when documented at the
time of discharge.
Thank you,
Hannah White RN, BSN
CDI Specialist
[facility]
Please use your independent medical judgment in providing your response.
[2025-01-17 15:23] VITALS: BMI 35.8
[2025-01-17 20:17] VITALS: BP 146/70
[2025-01-17 23:00] VITALS: BP 145/69
[2025-01-18] VITALS (9 sets, daily range): BP systolic 100–161; BP diastolic 53–86; PULSE 64; O2SAT 94
[2025-01-18] MEDS: SYNTHROID 137 MCG PO (05:19)
--- NOTE | 2025-01-18 08:46 | CM ---
Addendum entered by Carmen Sierra 01/18/25 14:58:
patient now to be dsicharged to [facility] tomorrow
notified Sugey at [place] - would like a transport by noon tomorrow
PLAN: PLAN: [facility] 01/19
REPORT [phone]
FAX #: [phone]
transportation forms on chart
Addendum entered by Carmen Sierra 01/18/25 08:55:
notified Vilma daughter - [phone]
Original Note:
CM received message from Norma from [facility] ([facility]) [phone]
AUTH APPROVAL FOR [facility] - APPROVAL REF #:[id number]
START 01/17/25-01/19/25, NRD 01/19/25
Neha is healthcare representative
fax updates to [phone]
[phone]
Called Darleen from [facility] & all auth information given to her
IMM explained & signed. In chart
PLAN: PLAN: [facility]
REPORT [phone]
FAX #: [phone]
transportation forms on chart
[2025-01-18 08:51] LABS: Hematocrit 28.9 % (37.0-47.0); Hemoglobin 9.0 g/dL (12.0-16.0); Mean Corp Hgb Conc. 31.1 g/dL (33.0-37.0); Mean Corpuscular Volume 116.1 fL (81.0-99.0); Nucleated Red Blood Cells % 0.5 %; Platelet Count 202 10^3/uL (130-400); Red Cell Dist. Width 17.7 % (11.5-14.5)
[2025-01-18] MEDS: VITAMIN B-12 1000 MCG PO (09:18)
[2025-01-18] MEDS: PACERONE 200 MG PO (09:19)
[2025-01-18] MEDS: MUCINEX 1200 MG PO ×2 (09:19→21:34)
[2025-01-18] MEDS: FLORINEF 0.1 MG PO (09:19)
[2025-01-18] MEDS: VITAMIN B1 100 MG PO (09:20)
[2025-01-18] MEDS: THERAGRAN 1 TABLET PO (09:20)
[2025-01-18] MEDS: PROTONIX 40 MG PO ×2 (09:20→21:34)
[2025-01-18] MEDS: OSCAL 500 + D 500 MG PO ×2 (09:20→21:34)
[2025-01-18] MEDS: ELIQUIS 2.5 MG PO ×2 (09:21→21:33)
[2025-01-18 09:29] LABS: ALT (SGPT) 11 U/L (0-35); AST (SGOT) 22 U/L (14-36); Albumin 2.2 g/dl (3.5-5.0); Alkaline Phosphatase 85 U/L (38-126); Blood Urea Nitrogen 25 mg/dl (7-17); Calcium 8.2 mg/dl (8.4-10.2); Carbon Dioxide 33 mmol/L (22-30); Chloride 104 mmol/L (98-107); Estimated Creatinine Clearance 38 ml/min; Glucose 64 mg/dl (70-99); Lipase 129 U/L (23-300); Potassium 3.6 mmol/L (3.5-5.1); Sodium 136 mmol/L (135-145); Total Protein 5.0 g/dl (6.3-8.2); eGFR 38.03
--- NOTE | 2025-01-18 11:25 | W.PN.HOSP.TC ---
Today's Communication/Plan
-
monitr with new pain of unknown etiology
Assessment / Plan
Assessment / Plan
79yo F with PMHX of cholecystectoiny, Parkinsons, hypothyroidism, Afib on eliquis, poor ambulatory capacity, came with chills for few days before admission, found shock and hypothermia. Patient hd Hx of the same with negative w/u, possibly due to
autonomic dysfuction discharged from at the end of Nov 2024. ALso found lower GIB 2/2 bleeding hemorrhoids vs interspinal ischemia due to shock that later resolved and anemia was not progressing while continued Eliquis. Hematology evaluated for
monoclonal spike seen on previous admission - outpatient f/u. Tremors improved on Sinemet. Outpatient neurologist advised. Repeast TSH in 2-3 weks since new Levothyroxine started. Medically stable for d/c to STR as recommended by PT/OT. Recurrent
abd pain with normal labs and CT abd.
A/P:
#Shock, unclear mechanism, cannot r//o autonomic dysfunction - neurogenic hypotension vs proctitis
#Hypothermia
#Hypothyroidism
#Cough with sputum
Random cortisol low, however ACTH neg for adrenal insufficiency
Zosyn, pending further ID recommendations: CXR - no pneumonia, no signs of UTI with absent pyuria, Bcx NTD
Warming blanket
Planned for LP on last admission, but since improved - deferred by neurologist.
#Abdominal distension
resolved on Lasix
patient has BM, no concern for obstruction
Can be volume overload with hydration due to holding Lasix and Fludrocortisone
#Small R kidney lesions, probably cyst
#L adrenal lesion: old hemorrhage or cyst
Repeat outpatient CT in 6mo
#Hx of positive RF and antiCCP Ab
might benefit from outpatient shaper hand
#Macrocytic anemia
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
b12 and folate WNL
Hematology consult: recent SPEP, Immunoglobulins, FLC, haptoglobin
#SNOW on CKD stage 3b
resolved
Cr baseline 1.2-1.4
Hydrate
maintain BP
follow Cr
#Parkinsonism with hallucination and dysautonomia
As per neurology assessment 05/05/24
Levodopa attempted but developed worsening of orthostasis
Liberalize fluid intake
avoid BP meds
Waste-high stocking, abdominal binder
Midodrine - but insufficient increase
Add Fludrocortisone
Wean off pressors
Recent MRI brain in Nov 2024 - no acute findings
#Paroxysmal Afib
well controlled
cont Amiodarone
Eliquis: decrease dose as CR>1.5 and age =79yo
#Lower GIB 2/2 hemorrhoids
GI consult: cont Eliquis
Follow CBC
#Spinal stenosis
Hx of chronic back pain with b/l LE numbness, onset years ago, already followed by outpatient physicians as per patient
Pain mgmt
DVT ppx Eliquis
Full code
I have spent at least 51min reviewing chart, test results, communication with consultants and providing direct patient care
Anticipated Discharge: Within 24 hours
Subjective/Interval History
-
Date of Service: January 18, 2025
Objective Data
-
Labs:
Laboratory Results
01/18/25
08:39
WBC 6.7
Hgb 9.0 L
Hct 28.9 L
Plt Count 202
Sodium 136
Potassium 3.6
Chloride 104
Carbon Dioxide 33 H
BUN 25 H
Creatinine 1.4 H
Glucose 64 L
Calcium 8.2 L
Total Bilirubin 0.6
AST 22
ALT 11
Alkaline Phosphatase 85
Vital Signs:
Vital Signs
Temp Pulse Resp BP Pulse Ox
95.5 F L 66 18 120/62 93
01/18/25 08:14 01/18/25 11:22 01/18/25 11:22 01/18/25 11:22 01/18/25 11:22
I&O
01/17/25 01/18/25 01/19/25
06:59 06:59 06:59
Intake Total 600 / 720 660 / 660
Balance 600 / 720 660 / 660
Review of Systems
-
History Source: Patient
All other systems: Reviewed and negative
Abdomen/GI: Reports Abdominal Pain (RLQ)
Physical Exam
-
General: Comfortable
Respiratory: Clear to Auscultation
GI: Soft, Nondistended and Tender (to light touch to skin on L flank, has post-hep injection bruise there)
Neuro: Awake, Alert, Oriented and AO x 3
Psych: Calm
[2025-01-18] MEDS: ULTRAM 25 MG PO (11:50)
[2025-01-18 15:58] LABS: Glucose - Point of Care 126 mg/dl (70-99)
--- NOTE | 2025-01-18 16:00 | RR ---
A Rapid Response was called on this patient, please see Rapid Response form. PCT reported to RN that pt was lethargic and hypotensive. RN found pt to be in chair, minimally responsive to verbal stimuli, leaning to the side in her chair, and stating
that when she does open her eyes her vision is blurry. A rapid response was called d/t change in mental status and hypotension. Pt was moved back to bed with maximum assistance. EKG, blood sugar, and vitals obtained. 250cc NS bolus given per MD. Pt
status improved upon returning to bed and initiation of bolus.
--- NOTE | 2025-01-18 16:05 | W.PN.UPDATE ---
Update Note
Progress Note Update
developed symptomatic hypotension while sitting in the chair with lethargy and blurry vision that started to resolve when in supine position and with IVF. Not on Levodopa anymore. Other then overnight L flank pain - no other symptoms. Patient
obviously does not tolerate orthostasis. Telemetry unremarkable for arrhythmia. AM labs without significant abnormalitities as well as CT abd/pelvis. With Hx of recurrently low Cortisol on AM labs, but in spite of normal ACTH response - will attempt
to restart treatment with hydrocortisone.
[2025-01-18] MEDS: SOLU-CORTEF 100 MG IV (16:39)
[2025-01-18] MEDS: ANUSOL HC RECTAL (21:33)
[2025-01-19] VITALS (7 sets, daily range): BP systolic 113–143; BP diastolic 61–109; PULSE 63–76; O2SAT 92
--- NOTE | 2025-01-19 03:42 | PTCARENOTE ---
PCT reported to this RN that she was unable to get a axillary or oral temperature from patient. Patient has been hypothermic since admission. Patient remains asymptomatic. Rectal temperature obtained, 94.8. Patient refusing to have rectal
temperature checked again. Patient c/o discomfort from repeated rectal temp. checks. Warming blanket ordered but patient refusing d/t rectal probe. Patient also refusing pastora hugger at this time. LORENA Gross made aware of rectal temperature
and of patient not wanting pastora hugger or warming blanket. MANAGER INFUSION requested that this RN try and get a rectal temperature in the morning. Patient agreeable to having rectal temp checked one more time in the morning. Will continue to monitor.
[2025-01-19] MEDS: SYNTHROID 137 MCG PO (05:48)
--- NOTE | 2025-01-19 07:36 | CON.CAR ---
Addendum entered and electronically signed by Kyung Ventura DO 01/19/25 17:11:
I saw and examined the patient.
The Toddler Caregiver's note was reviewed and I agree with the note.
Comment: Patient was seen and examined with cardiac PA. Patient is an 79 year old female with past medical history Paroxysmal Atrial Fibrillation on Eliquis, Ventricular Tachycardia s/p ICD, HOCM, Hypertension, Primary Hypothyroidism, DM II, , RA,
parkinsonism with hallucination and dysautonomia and Spinal stenosis presented 01/10/2025 to [facility] ED with abdominal pain, hypotension, hypothermia and rectal bleeding. Patient had had similar admission in November with ICU admission requiring
pressors with etiology of possible adrenal insufficiency. Rectal bleeding and anemia felt to be secondary to external hemorrhoids with prior colonoscopy in September 2024 GI saw briefly then signed off. Oncology consulted for concern of 'low risk
MGUS' and recommended outpatient evaluation. Cardiology being asked to see patient given fluctuating blood pressure with evidence of orthostasis, once again patient required brief period of Levophed for hypotension early on in admission. She was
found to have low random cortisol but ACTH negative for adrenal insufficiency. Started on hydrocortisone and midodrine which is now at maximum dose. Patient has continued to have hypothermia throughout admission.
GEN: No distress, awake, Ox3 lying comfortably flat in bed
HEENT: supple, anicteric, mmm
LUNGS: CTA, no wheezes/rales
CV: Reg, S1/S2, no murmur, rub or gallop
ABD: soft, BS+, NT/ND. abdominal binder present
EXT: +1 lower extremity edema, lower extremity skin changes consistent with chronic venous stasis. Tubigrip stockings present
NEURO: Gross non-focal
Plan:
Plan:
-Presented 01/10/2025 with hypotension, hypothermia, abdominal pain and rectal bleeding
Orthostasis
-Off all blood pressure lowering agents (previously was on lisinopril and Toprol). Blood pressures reviewed and somewhat labile.
- Check orthostatic vitals
-Echocardiogram in November 2024 with preserved ejection fraction and no significant valvular disease. No evidence of LVOT gradient. No need to repeat
-Continue midodrine 10 mg 3 times daily, dose increased from outpatient
-Found to have low cortisol level with normal ACTH. Hydrocortisone has been restarted by primary service
-Continue abdominal binder, compression stockings
-Patient has ICD with history of VT. Device interrogated 01/19/25 which demonstrated atrial fibrillation on 11/25 to 11/26/2024 with spontaneous conversion to sinus rhythm. Patient was hospitalized at that time. Since this time, no A-fib or VT. 21
months to [facility]
- Patient denies history of Parkinson's�will defer to neurology who is consulted.
History of ventricular tachycardia and paroxysmal atrial fibrillation.
-No arrhythmias noted on telemetry.
-ICD interrogation as noted above. No ventricular arrhythmias. Period of atrial fibrillation for just over 24 hours in November 2024.
-Replete potassium for K of 3.6
-Continue amiodarone and Eliquis
Anemia, GI is consulted and has signed off. Hemoglobin stable around 9. Patient does have a history of hemorrhoids with intermittent rectal bleeding recently. If hemoglobin should continue to drop would consider transfusion as this could be
contributing to her orthostasis. Consider iron studies with possible Venofer infusion if low.
History of hypothyroidism on Synthroid. Would check TSH
Will sign off, recall if needed
Original Note:
Consultation
Consultation Request
Date/Time Consultation Requested: 01/18/2025
Date/Time Consultation Performed: 01/19/2025
Requesting Provider: Dr. Jolley
Performing Provider: Genesis Campos PA-C for Dr. Ventura
Reason for Consultation: orthostasis
Medical History
-
History of Present Illness:
Patient is an 79 year old female with past medical history Paroxysmal Atrial Fibrillation on Eliquis, Ventricular Tachycardia s/p ICD, HOCM, Hypertension, Primary Hypothyroidism, DM II, , RA, parkinsonism with hallucination and dysautonomia and
Spinal stenosis presented 01/10/2025 to [facility] ED with abdominal pain, hypotension, hypothermia and rectal bleeding. Patient had had similar admission in November with ICU admission requiring pressors with etiology of possible adrenal insufficiency.
Rectal bleeding and anemia felt to be secondary to external hemorrhoids with prior colonoscopy in September 2024 GI saw briefly then signed off. Oncology consulted for concern of 'low risk MGUS' and recommended outpatient evaluation. Cardiology being
asked to see patient given fluctuating blood pressure with evidence of orthostasis, once again patient required brief period of Levophed for hypotension early on in admission. She was found to have low random cortisol but ACTH negative for adrenal
insufficiency. Started on hydrocortisone and midodrine which is now at maximum dose. Patient has continued to have hypothermia throughout admission.
Past medical history:
Paroxysmal atrial fibrillation
Chronic anticoagulation on Eliquis
Ventricular tachycardia
Medtronic ICD 05/2017
Hypertrophic obstructive cardiomyopathy
Hypertension
Hypothyroidism
Type 2 diabetes
Rheumatoid arthritis
Parkinsonism with hallucination and dysautonomia
Spinal stenosis
Past Medical History
Past Medical History: Other (See HPI)
Past Surgical History: Cardiac (Medtronic ICD 05/2017), Cholecystectomy, Orthopedic (Bilateral knee replacements, carpal tunnel repair, left foot surgery 2021), Tonsilectomy and Other (Cataract extraction)
Social History
Tobacco: Former Smoker
Alcohol: None
Drug: None
Living: With Family
Family History
Family History: Other (Father esophageal cancer, diabetes, mother A-fib pacemaker)
Allergies / Home Medications
Allergy/AdvReac Type Severity Reaction Status Date / Time
celecoxib Allergy stomach Verified 01/10/25 21:41
pains
codeine Allergy nausea/vomi Verified 01/10/25 13:09
ting
�Medication �Instructions �Recorded �Confirmed �Type
apixaban 5 mg tablet (Eliquis) 5 mg PO BID #60 tabs 05/18/17 01/10/25 Rx
cyanocobalamin (vitamin B-12) 1,000 mcg PO DAILY Supplement 02/19/18 01/10/25 History
1,000 mcg tablet
magnesium oxide 500 mg PO DAILY ##30 12/17/18 11/05/25 Rx
amiodarone 200 mg tablet (Pacerone) 200 mg PO DAILY Arrhythmia 12/23/18 01/10/25 History
levothyroxine 137 mcg tablet 137 mcg PO DAILY Thyroid 05/03/24 01/10/25 History
(Levoxyl)
calcium 600 mg (as carbonate)-vit 1 tab PO BID Supplement 11/21/24 01/10/25 History
D3 20 mcg (800 unit) chewable
tablet (Caltrate plus D)
furosemide 20 mg tablet 20 mg PO DAILY Fluid 11/21/24 01/10/25 History
Retention/Swelling
lvvwuzgjurbs-govcypoc-ejxyny tablet 1 tab PO DAILY Supplement 11/21/24 01/10/25 History
midodrine 5 mg tablet 5 mg PO TID@0800,1300,1800 #90 tabs 12/01/24 01/10/25 Rx
thiamine mononitrate (vit B1) 100 100 mg PO DAILY #100 tabs 12/01/24 01/10/25 Rx
mg tablet
Physical Exam
Vital Signs
Temp Pulse Resp BP Pulse Ox
94.8 F L 62 16 130/65 94
01/18/25 19:44 01/19/25 07:31 01/19/25 07:31 01/19/25 07:31 01/19/25 07:31
GEN: No distress, awake, Ox3 lying comfortably flat in bed
HEENT: supple, anicteric, mmm
LUNGS: CTA, no wheezes/rales
CV: Reg, S1/S2, no murmur, rub or gallop
ABD: soft, BS+, NT/ND
EXT: +1 lower extremity edema, lower extremity skin changes consistent with chronic venous stasis
NEURO: Gross non-focal
SKIN: No rash, warm, dry, pink
Lab Results
01/18/25 08:39
01/18/25 08:39
Bau-W-Tmjvqwdcvdr Pept 1170 pg/ml 01/16/25 10:44
Impression / Plan
-
PCP: Jp Mccabe
Cold Storage Superintendent: Dr. Scott
Impression:
Presented 01/10/2025 with hypotension, hypothermia, abdominal pain and rectal bleeding
Hypothermia, ongoing
Anemia
Orthostasis hypotension
Paroxysmal atrial fibrillation
Chronic anticoagulation on Eliquis
Ventricular tachycardia
Medtronic ICD 05/2017
Hypertrophic obstructive cardiomyopathy
Hypertension
Hypothyroidism
Type 2 diabetes
Rheumatoid arthritis
Parkinsonism with hallucination and dysautonomia
Spinal stenosis
Echo 11/22/2024: EF 55 to 60%. Normal LV cavity size. Mild concentric LVH. Stage II DD. Normal RV size and function. Mild TR with PAP 41 mmHg. Mildly dilated ascending aorta at 4.0
Echo 05/18/2023: Hyperdynamic LV with EF 70 to 75%. Mildly increased LV wall thickness with intracavitary gradient of 24 with Valsalva. Stage II DD. Mild TR with PAP 40 mmHg dilated ascending aorta 3.8 cm
Plan:
-Presented 01/10/2025 with hypotension, hypothermia, abdominal pain and rectal bleeding
Orthostasis
-Off all blood pressure lowering agents (previously was on lisinopril and Toprol). Blood pressures reviewed and somewhat labile.
- Check orthostatic vitals
-Echocardiogram in November 2024 with preserved ejection fraction and no significant valvular disease. No evidence of LVOT gradient. No need to repeat
-Continue midodrine 10 mg 3 times daily, dose increased from outpatient
-Found to have low cortisol level with normal ACTH. Hydrocortisone has been restarted by primary service
-Continue abdominal binder, compression stockings
-Patient has ICD with history of VT. Device interrogated 01/19/25 which demonstrated atrial fibrillation on 11/25 to 11/26/2024 with spontaneous conversion to sinus rhythm. Patient was hospitalized at that time. There has been no additional atrial
arrhythmias and no ventricular arrhythmias. 21 months to [facility]
-Given history of parkinsonism or dysautonomia may benefit from neurology consult. Northera may be an option
History of ventricular tachycardia and paroxysmal atrial fibrillation.
-No arrhythmias noted on telemetry.
-ICD interrogation as noted above. No ventricular arrhythmias. Period of atrial fibrillation for just over 24 hours in November 2024.
-Replete potassium for K of 3.6
-Continue amiodarone and Eliquis
Anemia, GI is consulted and has signed off. Hemoglobin stable around 9. Patient does have a history of hemorrhoids with intermittent rectal bleeding recently. If hemoglobin should continue to drop would consider transfusion as this could be
contributing to her orthostasis. Consider iron studies with possible Venofer infusion if low. Defer to hospital
History of hypothyroidism on Synthroid. Would check TSH
HPI 01/19/2025:
Patient is an 79 year old female with past medical history Paroxysmal Atrial Fibrillation on Eliquis, Ventricular Tachycardia s/p ICD, HOCM, Hypertension, Primary Hypothyroidism, DM II, , RA, parkinsonism with hallucination and dysautonomia and
Spinal stenosis presented 01/10/2025 to [facility] ED with abdominal pain, hypotension, hypothermia and rectal bleeding. Patient had had similar admission in November with ICU admission requiring pressors with etiology of possible adrenal insufficiency.
Rectal bleeding and anemia felt to be secondary to external hemorrhoids with prior colonoscopy in September 2024 GI saw briefly then signed off. Oncology consulted for concern of 'low risk MGUS' and recommended outpatient evaluation. Cardiology being
asked to see patient given fluctuating blood pressure with evidence of orthostasis, once again patient required brief period of Levophed for hypotension early on in admission. She was found to have low random cortisol but ACTH negative for adrenal
insufficiency. Started on hydrocortisone and midodrine which is now at maximum dose. Patient has continued to have hypothermia throughout admission.
Data Reviewed
-
EKG: Report Reviewed by me, Discussed with Physician and Discussed with Patient
CT Scan: Report Reviewed by me and Discussed with Patient
Labs: Labs Reviewed by me, Discussed with Physician and Discussed with Patient
Old Records: Reviewed
[2025-01-19 09:56] LABS: Free T3 1.76 pg/ml (2.77-5.27)
[2025-01-19] MEDS: MUCINEX 1200 MG PO ×2 (09:58→21:17)
[2025-01-19] MEDS: PROTONIX 40 MG PO ×2 (09:59→21:17)
[2025-01-19] MEDS: THERAGRAN 1 TABLET PO (09:59)
[2025-01-19] MEDS: OSCAL 500 + D 500 MG PO ×2 (09:59→21:16)
[2025-01-19] MEDS: VITAMIN B-12 1000 MCG PO (09:59)
[2025-01-19] MEDS: HYDROCORTONE/CORTEF 20 MG PO (09:59)
[2025-01-19] MEDS: ELIQUIS 2.5 MG PO ×2 (10:00→21:17)
[2025-01-19] MEDS: VITAMIN B1 100 MG PO (10:03)
[2025-01-19] MEDS: PACERONE 200 MG PO (10:03)
[2025-01-19] MEDS: KCL 20 MEQ PO (10:05)
--- NOTE | 2025-01-19 10:23 | W.PN.HOSP.TC ---
Today's Communication/Plan
-
Neurology consult
Abd binder and compression therapy and attempt to sit patient
MRI back
discuss with Endo - cont hydrocortisone meanwhile
Assessment / Plan
Assessment / Plan
79yo F with PMHX of cholecystectoiny, Parkinsons, hypothyroidism, Afib on eliquis, poor ambulatory capacity, came with chills for few days before admission, found shock and hypothermia. Patient hd Hx of the same with negative w/u, possibly due to
autonomic dysfuction discharged from at the end of Nov 2024. ALso found lower GIB 2/2 bleeding hemorrhoids vs interspinal ischemia due to shock that later resolved and anemia was not progressing while continued Eliquis. Hematology evaluated for
monoclonal spike seen on previous admission - outpatient f/u. Tremors improved on Sinemet. Outpatient neurologist advised. Repeast TSH in 2-3 weks since new Levothyroxine started. Medically stable for d/c to STR as recommended by PT/OT. Recurrent
abd pain with normal labs and CT abd.
A/P:
#Shock, unclear mechanism, cannot r//o autonomic dysfunction - neurogenic hypotension vs proctitis
#Hypothermia
#Hypothyroidism
#Pre-syncope 2/2 orthostatic hypotension with blurry vision
#Autonomic dysfunction with symptomatic orthostatic hypotension
Random cortisol low, however ACTH neg for adrenal insufficiency. TSH elevated -increased synthroid, discussing with Endo if reasonable to continue empiric Hydrocortisone (currently on it)
Zosyn completed as pr ID: CXR - no pneumonia, no signs of UTI with absent pyuria, Bcx NTD
Warming blanket when symptomatic only (chills, shivering)
Cardiology consult: no significant valvular deficiency, arrhythmia. Recommended abd binder and compression stocking up to the thigh when upright - ordered
Planned for LP on last admission, but since improved - deferred by neurologist. Neurology consult due to possible Parkinsons as per previous eval
#Abdominal distension
resolved on Lasix
patient has BM, no concern for obstruction
Can be volume overload with hydration due to holding Lasix and Fludrocortisone
#Small R kidney lesions, probably cyst
#L adrenal lesion: old hemorrhage or cyst
Repeat outpatient CT in 6mo
#Hx of positive RF and antiCCP Ab
might benefit from outpatient surfboard maker
#Macrocytic anemia
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
b12 and folate WNL
Hematology consult: recent SPEP, Immunoglobulins, FLC, haptoglobin
#SNOW on CKD stage 3b
resolved
Cr baseline 1.2-1.4
Hydrate
maintain BP
follow Cr
#Parkinsonism with hallucination and dysautonomia
As per neurology assessment 05/05/24
Levodopa attempted but developed worsening of orthostasis
Liberalize fluid intake
avoid BP meds
Waste-high stocking, abdominal binder
Midodrine - but insufficient increase
Hydrocortisone instead of Fludrocortisone until further endo w/u
Wean off pressors
Recent MRI brain in Nov 2024 - no acute findings
#Paroxysmal Afib
well controlled
cont Amiodarone
Eliquis: decrease dose as CR>1.5 and age =79yo
#Lower GIB 2/2 hemorrhoids
GI consult: cont Eliquis
Follow CBC
#Spinal stenosis with worsening lower back pain
MRI thoracic/lumbar
Hx of chronic back pain with b/l LE numbness, onset years ago, already followed by outpatient physicians as per patient
Pain mgmt
DVT ppx Eliquis
Full code
I have spent at least 55min reviewing chart, test results, communication with consultants and providing direct patient care
Anticipated Discharge: > 48 hours
Subjective/Interval History
-
Date of Service: January 19, 2025
Objective Data
-
Vital Signs:
Vital Signs
Temp Pulse Resp BP Pulse Ox
94.8 F L 62 16 130/65 94
01/18/25 19:44 01/19/25 07:31 01/19/25 07:31 01/19/25 07:31 01/19/25 07:31
I&O
01/18/25 01/19/25 01/20/25
06:59 06:59 06:59
Intake Total 660 / 660 960 / 960
Balance 660 / 660 960 / 960
Review of Systems
-
History Source: Patient
All other systems: Reviewed and negative
Musculoskeletal: Reports Other (severe lower back pain)
Physical Exam
-
General: No Apparent Distress
HEENT: Normocephalic
Respiratory: Clear to Auscultation
GI: Soft, Nontender and Nondistended
Neuro: Awake, Alert, Oriented and AO x 3
--- NOTE | 2025-01-19 10:26 | CON.NEURO4 ---
Addendum entered and electronically signed by John Chaudhry MD 01/19/25 19:05:
I have seen and examined the patient today along with the nurse practitioner Haleigh Alaniz, and I agree with her assessment and management plan. Given below is my addendum.
The patient is an 79 years old female with a past medical history of A-fib on Eliquis, who presented to the ER 01/10/2025 with hypothermia and hypotension. The patient was on midodrine at home. There was a concern about Parkinson's disease and she
has been evaluated in the past for hallucinations. The patient was also worked up for dysautonomia in the past. MRI of the brain done in November 2024 did not show acute findings. There is a history of lower GI bleed secondary to hemorrhoids.
Sinemet was tried during this admission but the patient reports that she did not tolerate it because it made her dizzy. At this time the patient's main complaint is low back pain.
On neurologic examination the patient is alert and oriented x 3, speech is clear, the cranial nerves II to XII are grossly intact, her strength is grossly normal in the upper extremities bilaterally but in lower extremities her strength is about 2/5
bilaterally, the lower extremity strength examination was limited due to complaint of back pain by the patient. The patient has a mild cogwheel rigidity in bilateral upper extremities and also has a mild rest tremor of the hands.
. Consider a trial of Rotigotine 1 mg/24 hours patch once daily. Rotigotine also can cause orthostatic hypotension and hallucinations, therefore, will start with a small dose and titrate the dose upwards as tolerated.
. MRI of the thoracic and lumbar spine are pending.
. Continue home apixaban for stroke prevention.
. Continue midodrine, abdominal binder, TRACE stockings.
. Goal normotension.
. Check orthostatic vital signs BID.
Will follow.
Original Note:
Consultation - Neurology 4
-
CONSULTING PHYSICIAN: John Chaudhry MD
REFERRING PHYSICIAN: Hospitalists/Dr. Jolley
DICTATED BY: LORENA Reyes
DATE/TIME OF REQUEST: 01/19/25
DATE/TIME OF CONSULTATION: 01/19/25
Reason for Consultation: Autonomic dysfunction
History of Present Illness:
This is an 79-year-old female who has presented to the hospital on 01/10/25 with report of hypothermia, hypotension, and rectal bleeding. Patient was hospitalized at [facility] in November 2024 with similar symptoms. She was evaluated by our Neurology
service then and also in April 2024 for hallucinations. Prior workup has consisted of MRI brain, MRI cervical spine, and EEG which did not demonstrate any significant findings.
From previous evaluation by Neurology Dr. Kwon on 11/28/24:
'This is an 79-year-old woman who presented to [facility] on 11/20/2024 with hypotension and hypothermia.
Ms. Rojo reports waking up in the hospital without remembering the events that led to her admission. The patient states she went to bed at night and the next thing she knew, she was in the hospital. She is unable to recall what happened or what
made her come to the hospital. This morning, she reports her temperature went down to 62 degrees, though she did not feel cold.
The patient reports using a walker for mobility, which she has been using for 6 months to a year due to imbalance. She reports having chronic back pain. Previous treatments for her back pain included physical therapy, which she did not find helpful,
and an injection that provided no relief.
According to patient's daughter Ms. Rojo's condition began deteriorating approximately one month ago when she started experiencing confusion and increased lethargy. Her daughter reports that in the week prior to hospitalization, the patient's
eating habits and bathroom routines changed significantly. She consulted her primary care physician, who performed a physical examination and blood work. The doctor adjusted the patient's blood pressure medication, reducing one and discontinuing
another. While there was a brief improvement on Wednesday, the patient's condition worsened over the weekend, with minimal food intake. This prompted the daughter to bring her to the emergency room on Wednesday.
Over the past month, the patient's sleep pattern changed dramatically, with her sleeping about 16 hours a day. Her mobility, already limited due to weakness, foot pain, and back soreness, further declined. For the past 10 months, she has been unable
to access her bedroom, instead staying in a recliner couch in the family room downstairs. The patient experienced difficulty swallowing tabs about 4 weeks ago, struggling after the first of her approximately 10 daily medications.
Prior to this acute decline, the patient was largely independent. Two months ago, she could manage self-care tasks, including bathing, dressing, and meal preparation. She was able to handle her finances and use her cell phone effectively. However,
she had reduced her driving over the past 4-5 months. The patient experienced a brief episode of hallucinations in April, which was investigated with a brain scan at the emergency room
Review of vital signs was notable for hypotension down to 69/46 and hypothermia down to 33.6 C.'
Patient was trialed on carbidopa/levodopa this admission and reports that she did not tolerate it, it made her dizzy and blurred her vision, she also became significantly more orthostatic after taking it. She is currently on midodrine 10mg TID,
hydrocortisone, and wearing an abdominal binder and thigh high compression stockings. Patient's biggest complaint is her severe right lower back pain. She denies any headache, vision changes, speech/swallow difficulty, and numbness. She reports that
she continues to see faces of people that are not actually there and has micrographia.
Past Medical History: hypertrophic cardiomyopathy, rheumatoid arthritis, cervical and lumbar central spinal stenosis, paroxysmal A-fib (apixaban), NSVT, PAD, DM, CKD, hypothyroidism, vitamin B-12 deficiency, BMI 38, osteoporosis, ambulatory
dysfunction, lower extremity lymphedema
Surgical History: PPM, AICD, bilateral cataract surgery, CTS, tonsillectomy, bilateral TKA, cholecystectomy, CHINYERE, sinus surgery
Family History: Reviewed and noncontributory.
Social History: Former smoker. Denies alcohol and illicit drug use.
Allergies: Celecoxib, codeine.
Home Medications: See below.
Review of Symptoms:
Patient denies any fever, headache, chest pain, shortness of breath, GI or symptoms.
�Per the HPI.�All systems are reviewed negative except above.
Physical Exam:
The patient is afebrile, abdomen is nondistended, breathing is unlabored, skin is warm and dry, PVD BLE, +1 edema.
Neurologic Examination:
The patient is awake, alert and oriented x 3. She is able to follow commands and answer questions appropriately. There is no aphasia or dysarthria. On cranial nerve assessment, pupils are 3 mm bilateral, round and reactive to light and
accommodation. Visual schneider are full. Extraocular movements are intact. Facial sensations are intact and bilaterally symmetrical, there is no facial asymmetry. Hearing is intact bilaterally to normal conversation volume. Tongue palate and uvula are
midline. Sternocleidomastoid strengths are full bilaterally. Motor strengths are 5/5 bilateral upper and 2/5 bilateral lower extremities (endorses pain) on medical research [place] scale. There is no drift or involuntary movement noted. There was no
extinction noted on double simultaneous stimulation. Coordination is intact by finger to nose bilaterally.
Lab Results: See below.
Neuro Imaging:
1. MRI Brain w/ and w/o contrast 11/30/24: No acute intracranial abnormality noted. Normal MR appearance of the brainstem/layla.
2. Cervical Spine MRI 11/30/24: Multilevel degenerative changes of the cervical spine as detailed, worst at C5-6 and C6/7 where disc and uncovertebral/facet disease contribute to moderate spinal canal and mild to severe neural foraminal stenosis at
these levels.
3. EEG 11/29/24: This is an abnormal awake and asleep EEG due to intermittent right frontotemporal slowing indicative of focal cerebral dysfunction nonspecific in terms of etiology.� No epileptiform activity was seen.�
Differentials for the patient's presentation include:
1. Autonomic dysfunction; ongoing concern for a neurodegenerative process producing symptoms- Parkinson's disease, MSA.
2. Polyneuropathy.
3. Multifactorial ambulatory dysfunction (spinal stenosis, polyneuropathy).
Patient has the following risk factors for their symptoms:
Recommendations:
-MRI lumbar and thoracic spine pending.
-Continue home apixaban for stroke prevention.
-Continue midodrine, abdominal binder, TRACE stockings.
-Goal normotension.
-Check orthostatic vital signs BID.
-PT/OT evaluations.
-Patient needs outpatient follow-up with Neurology in 1-2 weeks.
Discussed patient care with: Dr. Chaudhry, the patient
Vital Signs and Labs
-
Vital Signs and Labs:
Vital Signs
Temp Pulse Resp BP Pulse Ox
94.8 F L 62 16 130/65 94
01/18/25 19:44 01/19/25 07:31 01/19/25 07:31 01/19/25 07:31 01/19/25 07:31
Lab Results
01/18/25 08:39
01/18/25 08:39
PT 20.2 Sec (11.4-14.6) H 01/11/25 02:35
INR 1.67 01/11/25 02:35
APTT 53.4 Sec (23.4-35.0) H 01/11/25 02:35
Sodium 136 mmol/L (135-145) 01/18/25 08:39
Potassium 3.6 mmol/L (3.5-5.1) 01/18/25 08:39
BUN 25 mg/dl (7-17) H 01/18/25 08:39
Glucose 64 mg/dl (70-99) L 01/18/25 08:39
Calcium 8.2 mg/dl (8.4-10.2) L 01/18/25 08:39
Phosphorus 3.3 mg/dl (2.5-4.5) 01/13/25 04:54
Rai-P-Mwvaomgdmau Pept 1170 pg/ml 01/16/25 10:44
Vitamin B12 > 1000 pg/ml (239-931) H 01/13/25 04:54
Medications
-
Active Medications
Generic Name Dose Route Start Last Admin
Trade Name Freq PRN Reason Stop Dose Admin
Amiodarone HCl 200 mg 01/11/25 08:00 01/19/25 10:03
Amiodarone 200 Mg Tablet PO 02/08/25 07:59 200 mg
DAILY CHAO Administration
Apixaban 2.5 mg 01/11/25 20:00 01/19/25 10:00
Apixaban (Eliquis) 2.5 Mg Tablet PO 02/08/25 19:59 2.5 mg
BID CHAO Administration
Calcium/Vitamin D 500 mg 01/10/25 20:00 01/19/25 09:59
Calcium Carbonate 500 Mg/Vitamin D 5 Mcg (200 Units) Tablet PO 02/07/25 19:59 500 mg
BID CHAO Administration
Cyanocobalamin 1,000 mcg 01/11/25 08:00 01/19/25 09:59
Cyanocobalamin (Vitamin B-12) 500 Mcg Tablet PO 02/08/25 07:59 1,000 mcg
DAILY CHAO Administration
Guaifenesin 1,200 mg 01/11/25 22:00 01/19/25 09:58
Guaifenesin 600 Mg Extended Release Tablet PO 02/08/25 21:59 1,200 mg
Q12 CHAO Administration
Hydrocortisone 20 mg 01/19/25 08:00 01/19/25 09:59
Hydrocortisone 20 Mg Tablet PO 02/16/25 07:59 20 mg
DAILY CHAO Administration
Hydrocortisone Acetate 25 mg 01/11/25 22:00 01/18/25 21:33
Anusol Hc 25 Mg Rectal Suppository RECTAL 02/08/25 21:59 Not Given
HS CHAO
Levothyroxine Sodium 150 mcg 01/20/25 06:00
Levothyroxine 137 Mcg Tablet PO 02/17/25 05:59
DAILY@0600 CHAO
Magnesium Oxide 400 mg 01/11/25 08:00 01/11/25 08:29
Magnesium Oxide 400 Mg Tablet PO 02/08/25 07:59 400 mg
On Hold: 01/11/25 15:16 DAILY CHAO Administration
Miconazole Nitrate 1 applic 01/10/25 23:56
Miconazole Powder Bottle TOPICAL 02/07/25 23:55
BIDPRN PRN
skin folds
Midodrine 10 mg 01/17/25 11:22 01/19/25 09:58
Midodrine 5 Mg Tablet PO 02/07/25 19:59 10 mg
TID@0800,1300,1800 CHAO Administration
Multivitamins Therapeutic 1 tablet 01/11/25 08:00 01/19/25 09:59
Multivitamin Tablet PO 02/08/25 07:59 1 tablet
DAILY CHAO Administration
Pantoprazole Sodium 40 mg 01/13/25 20:00 01/19/25 09:59
Pantoprazole 40 Mg Delayed Release Tablet PO 02/10/25 19:59 40 mg
BID CHAO Administration
Sodium Chloride 0 flush 01/10/25 20:00
Sodium Chloride 0.9% (Flush) Syringe IV 02/07/25 19:59
PER PROTOCOL CHAO
Thiamine HCl 100 mg 01/11/25 08:00 01/19/25 10:03
Thiamine 100 Mg Tablet PO 02/08/25 07:59 100 mg
DAILY CHAO Administration
Home Medications
�Medication �Instructions �Recorded
apixaban 5 mg tablet (Eliquis) 5 mg PO BID #60 tabs 05/18/17
cyanocobalamin (vitamin B-12) 1,000 mcg PO DAILY Supplement 02/19/18
1,000 mcg tablet
magnesium oxide 500 mg PO DAILY ##30 02/21/18
amiodarone 200 mg tablet (Pacerone) 200 mg PO DAILY Arrhythmia 12/23/18
levothyroxine 137 mcg tablet 137 mcg PO DAILY Thyroid 05/03/24
(Levoxyl)
calcium 600 mg (as carbonate)-vit 1 tab PO BID Supplement 11/21/24
D3 20 mcg (800 unit) chewable
tablet (Caltrate plus D)
furosemide 20 mg tablet 20 mg PO DAILY Fluid 11/21/24
Retention/Swelling
wrmqbdnlvuqy-sxqkpcqn-lztjep tablet 1 tab PO DAILY Supplement 11/21/24
midodrine 5 mg tablet 5 mg PO TID@0800,1300,1800 #90 tabs 12/01/24
thiamine mononitrate (vit B1) 100 100 mg PO DAILY #100 tabs 12/01/24
mg tablet
--- NOTE | 2025-01-19 11:36 | CM ---
patient seen at bedside
spoke with lety Esparza
Neurology consult
Abd binder and compression therapy and attempt to sit patient
MRI ordered lumbar/thoracic
Updated Darleen from [facility] - will need new authorization when stable
PLAN: [facility], when stable, will need new ins authorization
--- NOTE | 2025-01-19 12:43 | W.PN.UPDATE ---
Update Note
Progress Note Update
While wearing abd binder and LE compression up to the thigh - BP during working with PT was 140/109
--- NOTE | 2025-01-19 17:39 | PTCARENOTE ---
Patient refused getting rectal temp during shift when oral and axillary temps were unsuccessfully obtained. Dr. Jolley was made aware of patient's refusal. MD instructed staff to watch for signs of hypothermia. Pt did not show signs of hypothermia
during shift. Pt expressed having back pain (chronic) during shift, but refused pain meds. Call jeronimo within reach.
[2025-01-19] MEDS: ANUSOL HC RECTAL (21:16)
--- NOTE | 2025-01-20 02:01 | PTCARENOTE ---
Pt. wants to brush teeth in the morning.
--- NOTE | 2025-01-20 02:02 | PTCARENOTE ---
Pt. wants to wait until the morning to brush teeth.
[2025-01-20 07:24] VITALS: BP 140/73
[2025-01-20] MEDS: OSCAL 500 + D 500 MG PO ×2 (08:44→21:12)
[2025-01-20] MEDS: CORTEF 15 MG PO (08:44)
[2025-01-20] MEDS: MUCINEX 1200 MG PO (08:44)
[2025-01-20] MEDS: PROTONIX 40 MG PO ×2 (08:44→21:12)
[2025-01-20] MEDS: VITAMIN B-12 1000 MCG PO (08:45)
[2025-01-20] MEDS: THERAGRAN 1 TABLET PO (08:45)
[2025-01-20] MEDS: ELIQUIS 2.5 MG PO ×2 (08:45→21:10)
[2025-01-20] MEDS: PACERONE 200 MG PO (08:49)
[2025-01-20] MEDS: VITAMIN B1 100 MG PO (08:54)
--- NOTE | 2025-01-20 10:53 | W.PN.HOSP.TC ---
Today's Communication/Plan
-
MRI back pending
Rotigotine patch declined by patient
Lasix once
Assessment / Plan
Assessment / Plan
79yo F with PMHX of cholecystectoiny, Parkinsons, hypothyroidism, Afib on eliquis, poor ambulatory capacity, came with chills for few days before admission, found shock and hypothermia. Patient hd Hx of the same with negative w/u, possibly due to
autonomic dysfuction discharged from at the end of Nov 2024. ALso found lower GIB 2/2 bleeding hemorrhoids vs interspinal ischemia due to shock that later resolved and anemia was not progressing while continued Eliquis. Hematology evaluated for
monoclonal spike seen on previous admission - outpatient f/u. Tremors improved on Sinemet. Outpatient neurologist advised. Repeast TSH in 2-3 weks since new Levothyroxine started. Medically stable for d/c to [facility] as recommended by PT/OT. Recurrent
abd pain with normal labs and CT abd.
A/P:
#Shock, unclear mechanism, cannot r//o autonomic dysfunction - neurogenic hypotension vs proctitis
#Hypothermia
#Hypothyroidism
#Pre-syncope 2/2 orthostatic hypotension with blurry vision
#Autonomic dysfunction with symptomatic orthostatic hypotension
Random cortisol low, however ACTH neg for adrenal insufficiency. TSH elevated -increased synthroid, discussing with Endo if reasonable to continue empiric Hydrocortisone (currently on it): recommended to cont Hydrocotisone 15mg AM and 5mg PM.
Synthroid also increased to 150mcg since TSH elevated.
Zosyn completed as pr ID: CXR - no pneumonia, no signs of UTI with absent pyuria, Bcx NTD
Warming blanket when symptomatic only (chills, shivering)
Cardiology consult: no significant valvular deficiency, arrhythmia. Recommended abd binder and compression stocking up to the thigh when upright - ordered
Planned for LP on last admission, but since improved - deferred by neurologist. Neurology consult due to possible Parkinsons as per previous eval: recommended Rotigotine 1 mg/24 hours patch, but patient declined and would like to follow with
neurologist as outpatient in [facility]
#Abdominal distension
resolved on Lasix
patient has BM, no concern for obstruction
Can be volume overload with hydration due to holding Lasix
#Small R kidney lesions, probably cyst
#L adrenal lesion: old hemorrhage or cyst
Repeat outpatient CT in 6mo
#Hx of positive RF and antiCCP Ab
might benefit from outpatient starch mangle tender
#Macrocytic anemia
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
Accident Examiner
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
b12 and folate WNL
Hematology consult: recent SPEP, Immunoglobulins, FLC, haptoglobin
#SNOW on CKD stage 3b
resolved
Cr baseline 1.2-1.4
Hydrate
maintain BP
follow Cr
#Parkinsonism with hallucination and dysautonomia
As per neurology assessment 05/05/24
Levodopa attempted but developed worsening of orthostasis
Liberalize fluid intake
avoid BP meds
Waste-high stocking, abdominal binder
Midodrine - but insufficient increase
Hydrocortisone
Wean off pressors
Recent MRI brain in Nov 2024 - no acute findings
#Paroxysmal Afib
well controlled
cont Amiodarone
Eliquis: decrease dose as CR>1.5 and age =79yo
#Lower GIB 2/2 hemorrhoids
GI consult: cont Eliquis
Follow CBC
#Spinal stenosis with worsening lower back pain
MRI thoracic/lumbar
Hx of chronic back pain with b/l LE numbness, onset years ago, already followed by outpatient physicians as per patient
Pain mgmt
DVT ppx Eliquis
Full code
I have spent at least 55min reviewing chart, test results, communication with consultants and providing direct patient care
Anticipated Discharge: > 48 hours
Subjective/Interval History
-
Date of Service: January 20, 2025
Objective Data
-
Vital Signs:
Vital Signs
Temp Pulse Resp BP Pulse Ox
95.6 F L 62 17 140/73 95
01/19/25 23:00 01/20/25 07:24 01/20/25 07:24 01/20/25 07:24 01/20/25 07:24
I&O
01/19/25 01/20/25 01/21/25
06:59 06:59 06:59
Intake Total 960 / 960 1140 / 1140
Balance 960 / 960 1140 / 1140
Review of Systems
-
History Source: Patient
All other systems: Reviewed and negative
Physical Exam
-
General: No Apparent Distress
GI: Soft, Nontender and Distended
Musculoskeletal: No Clubbing, No Cyanosis and No Edema
Neuro: Other (R lumbar pain)
Psych: Calm
[2025-01-20] MEDS: LASIX 40 MG IV (13:23)
--- NOTE | 2025-01-20 14:45 | W.PN.NEURO.1 ---
Today's Communication / Plan
-
. MRI of the thoracic and lumbar spine are pending.
. Continue home apixaban for stroke prevention.
. Continue midodrine, abdominal binder, TRACE stockings.
. Goal normotension.
. Check orthostatic vital signs BID.
The patient declined the use of rotigotine patch and she would like to follow-up with her neurologist as an outpatient.
Will sign off. Please call if any question.
Subjective/Objective
Subjective Data
Date of Service: January 20, 2025
The patient is stable. Her speech is clear.
The neurologic examination is unchanged since yesterday.
. MRI of the thoracic and lumbar spine are pending.
. Continue home apixaban for stroke prevention.
. Continue midodrine, abdominal binder, TRACE stockings.
. Goal normotension.
. Check orthostatic vital signs BID.
The patient declined the use of rotigotine patch and she would like to follow-up with her neurologist as an outpatient.
Objective Data
Vital Signs
Temp Pulse Resp BP Pulse Ox
35.3 C L 62 17 140/73 95
01/19/25 23:00 01/20/25 07:24 01/20/25 07:24 01/20/25 07:24 01/20/25 07:24
Lab Results
01/18/25 08:39
01/18/25 08:39
PT 20.2 Sec (11.4-14.6) H 01/11/25 02:35
INR 1.67 01/11/25 02:35
APTT 53.4 Sec (23.4-35.0) H 01/11/25 02:35
Sodium 136 mmol/L (135-145) 01/18/25 08:39
Potassium 3.6 mmol/L (3.5-5.1) 01/18/25 08:39
BUN 25 mg/dl (7-17) H 01/18/25 08:39
Glucose 64 mg/dl (70-99) L 01/18/25 08:39
Calcium 8.2 mg/dl (8.4-10.2) L 01/18/25 08:39
Phosphorus 3.3 mg/dl (2.5-4.5) 01/13/25 04:54
Kpf-E-Plgcpaydprf Pept 1170 pg/ml 01/16/25 10:44
Vitamin B12 > 1000 pg/ml (239-931) H 01/13/25 04:54
Patient Allergies
celecoxib Allergy (Verified 01/10/25 21:41)
stomach pains
codeine Allergy (Verified 01/10/25 13:09)
nausea/vomiting
[2025-01-20 15:03] VITALS: BP 129/70
[2025-01-20] MEDS: CORTEF 5 MG PO (18:00)
--- NOTE | 2025-01-20 20:55 | PTCARENOTE ---
Pt did not have any medications ordered for pain. Pt was c/o lower back pain. During dayshift pt was refusing to take anything for pain. This RN explained to the pt that even a dose of tylenol would help to relieve the pain, that this RN did not
want this pt to be uncomfortable. House Provider TT. New orders for tylenol were entered. See MAR.
[2025-01-20] MEDS: TYLENOL 650 MG PO (21:10)
[2025-01-20] MEDS: MUCINEX PO (21:15)
[2025-01-20] MEDS: ANUSOL HC 25 MG RECTAL (22:02)
[2025-01-20 23:00] VITALS: BP 132/68
[2025-01-21] MEDS: SYNTHROID 150 MCG PO (05:49)
[2025-01-21 07:29] VITALS: BP 133/66
[2025-01-21 07:51] LABS: ALT (SGPT) 26 U/L (0-35); AST (SGOT) 27 U/L (14-36); Albumin 2.3 g/dl (3.5-5.0); Alkaline Phosphatase 97 U/L (38-126); Blood Urea Nitrogen 26 mg/dl (7-17); Calcium 8.0 mg/dl (8.4-10.2); Carbon Dioxide 35 mmol/L (22-30); Chloride 104 mmol/L (98-107); Estimated Creatinine Clearance 45 ml/min; Glucose 54 mg/dl (70-99); Magnesium 2.0 mg/dl (1.6-2.3); Potassium 3.4 mmol/L (3.5-5.1); Sodium 136 mmol/L (135-145); Total Protein 5.0 g/dl (6.3-8.2); eGFR 45.76
[2025-01-21] MEDS: VITAMIN B-12 1000 MCG PO (08:05)
[2025-01-21] MEDS: MUCINEX 1200 MG PO ×2 (08:06→20:01)
[2025-01-21] MEDS: PROTONIX 40 MG PO ×2 (08:06→20:00)
[2025-01-21] MEDS: PACERONE 200 MG PO (08:07)
[2025-01-21] MEDS: THERAGRAN 1 TABLET PO (08:07)
[2025-01-21] MEDS: OSCAL 500 + D 500 MG PO ×2 (08:07→20:00)
[2025-01-21] MEDS: ELIQUIS 2.5 MG PO ×2 (08:07→20:00)
[2025-01-21] MEDS: VITAMIN B1 100 MG PO (08:08)
[2025-01-21] MEDS: CORTEF 15 MG PO (08:08)
[2025-01-21] MEDS: TYLENOL 650 MG PO ×2 (08:22→21:46)
[2025-01-21] MEDS: KCL 40 MEQ PO (08:57)
[2025-01-21 09:05] LABS: Hematocrit 30.9 % (37.0-47.0); Hemoglobin 9.9 g/dL (12.0-16.0); Mean Corp Hgb Conc. 32.0 g/dL (33.0-37.0); Mean Corpuscular Volume 115.3 fL (81.0-99.0); Nucleated Red Blood Cells % 0 %; Platelet Count 265 10^3/uL (130-400); Red Cell Dist. Width 17.4 % (11.5-14.5)
--- NOTE | 2025-01-21 10:27 | W.PN.HOSP.TC ---
Today's Communication/Plan
-
cont PT OT with abdominal binder and compression stockings
Repleted potassium
pending MRI back
Vanco oral
Assessment / Plan
Assessment / Plan
79yo F with PMHX of cholecystectoiny, Parkinsons, hypothyroidism, Afib on eliquis, poor ambulatory capacity, came with chills for few days before admission, found shock and hypothermia. Patient hd Hx of the same with negative w/u, possibly due to
autonomic dysfuction discharged from at the end of Nov 2024. ALso found lower GIB 2/2 bleeding hemorrhoids vs interspinal ischemia due to shock that later resolved and anemia was not progressing while continued Eliquis. Hematology evaluated for
monoclonal spike seen on previous admission - outpatient f/u. Tremors improved on Sinemet. Outpatient neurologist advised. Repeast TSH in 2-3 weks since new Levothyroxine started. Medically stable for d/c to STR as recommended by PT/OT. Recurrent
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
A/P:
#Shock, unclear mechanism, cannot r//o autonomic dysfunction - neurogenic hypotension vs proctitis
#Hypothermia
#Hypothyroidism
#Pre-syncope 2/2 orthostatic hypotension with blurry vision
#Autonomic dysfunction with symptomatic orthostatic hypotension
Random cortisol low, however ACTH neg for adrenal insufficiency. TSH elevated -increased synthroid, discussing with Endo if reasonable to continue empiric Hydrocortisone (currently on it): recommended to cont Hydrocotisone 15mg AM and 5mg PM.
Synthroid also increased to 150mcg since TSH elevated.
Zosyn completed as pr ID: CXR - no pneumonia, no signs of UTI with absent pyuria, Bcx NTD
Warming blanket when symptomatic only (chills, shivering)
Cardiology consult: no significant valvular deficiency, arrhythmia. Recommended abd binder and compression stocking up to the thigh when upright - ordered
Planned for LP on last admission, but since improved - deferred by neurologist. Neurology consult due to possible Parkinsons as per previous eval: recommended Rotigotine 1 mg/24 hours patch, but patient declined and would like to follow with
neurologist as outpatient in [facility]
#Abdominal distension
resolved on Lasix
patient has BM, no concern for obstruction
Can be volume overload with hydration due to holding Lasix
#Small R kidney lesions, probably cyst
#L adrenal lesion: old hemorrhage or cyst
Repeat outpatient CT in 6mo
#Hx of positive RF and antiCCP Ab
might benefit from outpatient political reporter
#Macrocytic anemia
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
b12 and folate WNL
Hematology consult: recent SPEP, Immunoglobulins, FLC, haptoglobin
#SNOW on CKD stage 3b
resolved
Cr baseline 1.2-1.4
Hydrate
maintain BP
follow Cr
#Parkinsonism with hallucination and dysautonomia
As per neurology assessment 05/05/24
Levodopa attempted but developed worsening of orthostasis
Liberalize fluid intake
avoid BP meds
Waste-high stocking, abdominal binder
Midodrine - but insufficient increase
Hydrocortisone
Wean off pressors
Recent MRI brain in Nov 2024 - no acute findings
#Paroxysmal Afib
well controlled
cont Amiodarone
Eliquis: decrease dose as CR>1.5 and age =79yo
#Lower GIB 2/2 hemorrhoids
GI consult: cont Eliquis
Follow CBC
#Spinal stenosis with worsening lower back pain
MRI thoracic/lumbar
Hx of chronic back pain with b/l LE numbness, onset years ago, already followed by outpatient physicians as per patient
Pain mgmt
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
carrier
With multitude of comorbidities - reasonable to complete 10 days Vanco especially since now with loose stool
DVT ppx Eliquis
Full code
I have spent at least 56min reviewing chart, test results, communication with consultants and providing direct patient care
Anticipated Discharge: Within 24 hours
Subjective/Interval History
-
Date of Service: January 21, 2025
Objective Data
-
Labs:
Laboratory Results
01/21/25 01/21/25
06:52 06:53
WBC 6.8
Hgb 9.9 L
Hct 30.9 L
Plt Count 265 D
Sodium 136
Potassium 3.4 L
Chloride 104
Carbon Dioxide 35 H
BUN 26 H
Creatinine 1.2 H
Glucose 54 L*
Calcium 8.0 L
Total Bilirubin 0.7
AST 27
ALT 26
Alkaline Phosphatase 97
Vital Signs:
Vital Signs
Temp Pulse Resp BP Pulse Ox
98.0 F 62 18 133/66 95
01/21/25 07:29 01/21/25 07:29 01/21/25 07:29 01/21/25 07:29 01/21/25 07:29
I&O
01/20/25 01/21/25 01/22/25
06:59 06:59 06:59
Intake Total 1140 / 1140 700 / 700
Balance 1140 / 1140 700 / 700
Review of Systems
-
History Source: Patient
All other systems: Reviewed and negative
Physical Exam
-
General: No Apparent Distress
HEENT: Normocephalic
GI: Soft, Nontender and Nondistended
Skin: Warm
Neuro: Awake, Alert, Oriented and AO x 3
Psych: Calm
[2025-01-21] MEDS: FIRVANQ 125 MG PO ×3 (12:42→23:23)
[2025-01-21 15:11] VITALS: BP 115/63
[2025-01-21 15:49] VITALS: BP 124/50; BP 129/70
[2025-01-21] MEDS: CORTEF 5 MG PO (17:34)
[2025-01-21] MEDS: ANUSOL HC 25 MG RECTAL (21:46)
[2025-01-21 23:00] VITALS: BP 140/69
[2025-01-22] MEDS: SYNTHROID 150 MCG PO (05:52)
[2025-01-22] MEDS: FIRVANQ 125 MG PO ×4 (05:52→22:14)
[2025-01-22 07:12] VITALS: BP 138/73
[2025-01-22] MEDS: VITAMIN B1 100 MG PO (08:52)
[2025-01-22] MEDS: PACERONE 200 MG PO (08:52)
[2025-01-22] MEDS: OSCAL 500 + D 500 MG PO ×2 (08:53→22:15)
[2025-01-22] MEDS: CORTEF 15 MG PO (08:53)
[2025-01-22] MEDS: ELIQUIS 2.5 MG PO (08:53)
[2025-01-22] MEDS: PROTONIX 40 MG PO ×2 (08:53→22:14)
[2025-01-22] MEDS: VITAMIN B-12 1000 MCG PO (08:54)
[2025-01-22] MEDS: MUCINEX 1200 MG PO ×2 (08:54→22:14)
[2025-01-22] MEDS: THERAGRAN 1 TABLET PO (08:54)
[2025-01-22] MEDS: VALIUM 2 MG PO (10:48)
[2025-01-22 12:44] VITALS: BP 111/64; BP 115/69; BP 96/56; PULSE 67; PULSE 87; PULSE 95
--- NOTE | 2025-01-22 13:29 | W.PN.HOSP.TC ---
Today's Communication/Plan
-
mri pending
Assessment / Plan
Assessment / Plan
79yo F with PMHX of cholecystectoiny, Parkinsons, hypothyroidism, Afib on eliquis, poor ambulatory capacity, came with chills for few days before admission, found shock and hypothermia. Patient hd Hx of the same with negative w/u, possibly due to
autonomic dysfuction discharged from at the end of Nov 2024. ALso found lower GIB 2/2 bleeding hemorrhoids vs interspinal ischemia due to shock that later resolved and anemia was not progressing while continued Eliquis. Hematology evaluated for
monoclonal spike seen on previous admission - outpatient f/u. Tremors improved on Sinemet. Outpatient neurologist advised. Repeast TSH in 2-3 weks since new Levothyroxine started. Medically stable for d/c to STR as recommended by PT/OT. Recurrent
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
NAD
Scleral Anicteric
MMM
No JVD
CTABL
RRR, S1/S2
Soft, NT, ND, BS+
Warm, Dry
AAOx3
Calm
A/P:
#Shock, unclear mechanism, cannot r//o autonomic dysfunction - neurogenic hypotension vs proctitis
#Hypothermia
#Hypothyroidism
#Pre-syncope 2/2 orthostatic hypotension with blurry vision
#Autonomic dysfunction with symptomatic orthostatic hypotension
Random cortisol low, however ACTH neg for adrenal insufficiency. TSH elevated -increased synthroid, discussing with Endo if reasonable to continue empiric Hydrocortisone (currently on it): recommended to cont Hydrocotisone 15mg AM and 5mg PM.
Synthroid also increased to 150mcg since TSH elevated.
Zosyn completed as pr ID: CXR - no pneumonia, no signs of UTI with absent pyuria, Bcx NTD
Warming blanket when symptomatic only (chills, shivering)
Cardiology consult: no significant valvular deficiency, arrhythmia. Recommended abd binder and compression stocking up to the thigh when upright - ordered
Planned for LP on last admission, but since improved - deferred by neurologist. Neurology consult due to possible Parkinsons as per previous eval: recommended Rotigotine 1 mg/24 hours patch, but patient declined and would like to follow with
neurologist as outpatient in [facility]
#Abdominal distension
resolved on Lasix
patient has BM, no concern for obstruction
Can be volume overload with hydration due to holding Lasix
#Small R kidney lesions, probably cyst
#L adrenal lesion: old hemorrhage or cyst
Repeat outpatient CT in 6mo
#Hx of positive RF and antiCCP Ab
might benefit from outpatient concession manager
#Macrocytic anemia
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
b12 and folate WNL
Hematology consult: recent SPEP, Immunoglobulins, FLC, haptoglobin
#SNOW on CKD stage 3b
resolved
Cr baseline 1.2-1.4
Hydrate
maintain BP
follow Cr
#Parkinsonism with hallucination and dysautonomia
As per neurology assessment 05/05/24
Levodopa attempted but developed worsening of orthostasis
Liberalize fluid intake
avoid BP meds
Waste-high stocking, abdominal binder
Midodrine - but insufficient increase
Hydrocortisone
Wean off pressors
Recent MRI brain in Nov 2024 - no acute findings
#Paroxysmal Afib
well controlled
cont Amiodarone
Eliquis: decrease dose as CR>1.5 and age =79yo
#Lower GIB 2/2 hemorrhoids
GI consult: cont Eliquis
Follow CBC
#Spinal stenosis with worsening lower back pain
MRI thoracic/lumbar
Hx of chronic back pain with b/l LE numbness, onset years ago, already followed by outpatient physicians as per patient
Pain mgmt
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
carrier
With multitude of comorbidities - reasonable to complete 10 days Vanco especially since now with loose stool
DVT ppx Eliquis
Full code
I have spent at least 56min reviewing chart, test results, communication with consultants and providing direct patient care
Anticipated Discharge: 24 - 48 hours
Subjective/Interval History
-
Date of Service: January 22, 2025
seen and examined. no new complaints. no acute overnight events
Objective Data
-
Vital Signs:
Vital Signs
Temp Pulse Resp BP Pulse Ox
97.6 F 67 16 111/64 96
01/22/25 07:12 01/22/25 12:56 01/22/25 07:12 01/22/25 12:56 01/22/25 07:12
I&O
01/21/25 01/22/25 01/23/25
06:59 06:59 06:59
Intake Total 700 / 700 720 / 720
Balance 700 / 700 720 / 720
[2025-01-22 15:25] VITALS: BP 118/75
[2025-01-22] MEDS: TYLENOL 650 MG PO (15:47)
[2025-01-22] MEDS: CORTEF 5 MG PO (15:47)
--- NOTE | 2025-01-22 16:10 | CM ---
MRI completed
PT rec SNF
referral in for [facility], will need auth
spoke with Darleen at [place] & updated
PLAN: [place] [facility], pending bed availability when stable, will need ins auth ([facility])
[2025-01-22] MEDS: ANUSOL HC 25 MG RECTAL (22:14)
[2025-01-22] MEDS: ELIQUIS 5 MG PO (22:14)
[2025-01-22 23:21] VITALS: BP 156/77
[2025-01-23] MEDS: SYNTHROID 150 MCG PO (06:15)
[2025-01-23] MEDS: FIRVANQ 125 MG PO ×4 (06:15→22:28)
[2025-01-23 07:16] VITALS: BP 150/80
[2025-01-23] MEDS: VITAMIN B-12 1000 MCG PO (08:55)
[2025-01-23] MEDS: PROTONIX 40 MG PO ×2 (08:59→19:47)
[2025-01-23] MEDS: MUCINEX 1200 MG PO ×2 (08:59→19:47)
[2025-01-23] MEDS: VITAMIN B1 100 MG PO (08:59)
[2025-01-23] MEDS: ELIQUIS 5 MG PO ×2 (09:00→19:47)
[2025-01-23] MEDS: OSCAL 500 + D 500 MG PO ×2 (09:00→19:47)
[2025-01-23] MEDS: PACERONE 200 MG PO (09:00)
[2025-01-23] MEDS: THERAGRAN 1 TABLET PO (09:00)
[2025-01-23] MEDS: CORTEF 15 MG PO (09:01)
[2025-01-23 10:45] VITALS: BP 119/69; BP 120/59; BP 126/71; BP 84/64; PULSE 105; PULSE 60; PULSE 61; PULSE 68; PULSE 71; PULSE 73; O2SAT 95
--- NOTE | 2025-01-23 12:08 | W.PN.HOSP.TC ---
Today's Communication/Plan
-
Assessment / Plan
Assessment / Plan
79yo F with PMHX of cholecystectoiny, Parkinsons, hypothyroidism, Afib on eliquis, poor ambulatory capacity, came with chills for few days before admission, found shock and hypothermia. Patient hd Hx of the same with negative w/u, possibly due to
autonomic dysfuction discharged from at the end of Nov 2024. ALso found lower GIB 2/2 bleeding hemorrhoids vs interspinal ischemia due to shock that later resolved and anemia was not progressing while continued Eliquis. Hematology evaluated for
monoclonal spike seen on previous admission - outpatient f/u. Tremors improved on Sinemet. Outpatient neurologist advised. Repeast TSH in 2-3 weks since new Levothyroxine started. Medically stable for d/c to STR as recommended by PT/OT. Recurrent
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
NAD
Scleral Anicteric
MMM
No JVD
CTABL
RRR, S1/S2
Soft, NT, ND, BS+
Warm, Dry
AAOx3
Calm
A/P:
#Shock, unclear mechanism, cannot r//o autonomic dysfunction - neurogenic hypotension vs proctitis
#Hypothermia
#Hypothyroidism
#Pre-syncope 2/2 orthostatic hypotension with blurry vision
#Autonomic dysfunction with symptomatic orthostatic hypotension
Random cortisol low, however ACTH neg for adrenal insufficiency. TSH elevated -increased synthroid, discussing with Endo if reasonable to continue empiric Hydrocortisone (currently on it): recommended to cont Hydrocotisone 15mg AM and 5mg PM.
Synthroid also increased to 150mcg since TSH elevated.
Zosyn completed as pr ID: CXR - no pneumonia, no signs of UTI with absent pyuria, Bcx NTD
Warming blanket when symptomatic only (chills, shivering)
Cardiology consult: no significant valvular deficiency, arrhythmia. Recommended abd binder and compression stocking up to the thigh when upright - ordered
Planned for LP on last admission, but since improved - deferred by neurologist. Neurology consult due to possible Parkinsons as per previous eval: recommended Rotigotine 1 mg/24 hours patch, but patient declined and would like to follow with
neurologist as outpatient in [facility]
#Abdominal distension
resolved on Lasix
patient has BM, no concern for obstruction
Can be volume overload with hydration due to holding Lasix
#Small R kidney lesions, probably cyst
#L adrenal lesion: old hemorrhage or cyst
Repeat outpatient CT in 6mo
#Hx of positive RF and antiCCP Ab
might benefit from outpatient inspector fibrous wallboard
#Macrocytic anemia
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
b12 and folate WNL
Hematology consult: recent SPEP, Immunoglobulins, FLC, haptoglobin
#SNOW on CKD stage 3b
resolved
Cr baseline 1.2-1.4
Hydrate
maintain BP
follow Cr
#Parkinsonism with hallucination and dysautonomia
As per neurology assessment 05/05/24
Levodopa attempted but developed worsening of orthostasis
Liberalize fluid intake
avoid BP meds
Waste-high stocking, abdominal binder
Midodrine - but insufficient increase
Hydrocortisone
Wean off pressors
Recent MRI brain in Nov 2024 - no acute findings
#Paroxysmal Afib
well controlled
cont Amiodarone
Eliquis: decrease dose as CR>1.5 and age =79yo
#Lower GIB 2/2 hemorrhoids
GI consult: cont Eliquis
Follow CBC
#Spinal stenosis with worsening lower back pain
MRI thoracic/lumbar
Hx of chronic back pain with b/l LE numbness, onset years ago, already followed by outpatient physicians as per patient
Pain mgmt
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
carrier
With multitude of comorbidities - reasonable to complete 10 days Vanco especially since now with loose stool
DVT ppx Eliquis
Full code
FOr SNF when symptomatic orthostais has improved
Anticipated Discharge: 24 - 48 hours
Subjective/Interval History
-
Date of Service: January 23, 2025
continues to expereince symptomatic orthostasis
Objective Data
-
Vital Signs:
Vital Signs
Temp Pulse Resp BP Pulse Ox
97.8 F 61 17 150/80 96
01/23/25 07:16 01/23/25 09:00 01/23/25 07:16 01/23/25 09:00 01/23/25 07:16
I&O
01/22/25 01/23/25 01/24/25
06:59 06:59 06:59
Intake Total 720 / 720 720 / 720
Output Total 100 / 100
Balance 720 / 720 620 / 620
[2025-01-23 15:18] VITALS: BP 144/78
[2025-01-23] MEDS: CORTEF 5 MG PO (16:21)
[2025-01-23] MEDS: ANUSOL HC 25 MG RECTAL (22:13)
[2025-01-23 23:18] VITALS: BP 151/72
--- NOTE | 2025-01-24 03:01 | DOWNTIME ---
There was a [employer] Client Autistic Teacher Downtime on 01/24/2025 from 0100 to 01/24/2025 at 0255. Downtime documentation of patient's care, including medication administrations, has been reconciled in the electronic record per guidelines. Refer to the
patient's paper chart under the miscellaneous tab to see printed paper medication records and downtime forms.
[2025-01-24] MEDS: SYNTHROID 150 MCG PO (05:47)
[2025-01-24] MEDS: FIRVANQ 125 MG PO ×4 (05:47→23:38)
[2025-01-24 07:30] VITALS: BP 131/69
[2025-01-24] MEDS: ELIQUIS 5 MG PO ×2 (08:25→19:51)
[2025-01-24] MEDS: VITAMIN B1 100 MG PO (08:25)
[2025-01-24] MEDS: OSCAL 500 + D 500 MG PO ×2 (08:26→19:51)
[2025-01-24] MEDS: CORTEF 15 MG PO (08:26)
[2025-01-24] MEDS: VITAMIN B-12 1000 MCG PO (08:26)
[2025-01-24] MEDS: MUCINEX 1200 MG PO ×2 (08:26→19:51)
[2025-01-24] MEDS: THERAGRAN 1 TABLET PO (08:26)
[2025-01-24] MEDS: PROTONIX 40 MG PO ×2 (08:27→19:51)
[2025-01-24] MEDS: PACERONE 200 MG PO (08:27)
--- NOTE | 2025-01-24 10:05 | W.PN.NEURO.1 ---
Addendum entered and electronically signed by Bernardino Medrano MD 01/24/25 13:22:
Studies reviewed.
I have personally examined the patient. I reviewed and agree with the BINDER TECHNICIAN's Note.
My addenda:
Awake, alert, interactive. No acute distress.
Speech intact.
Follows 2-step requests w/o difficulty. No tremor.
Extra-ocular movements grossly intact.
Facial movements full and symmetric. Hearing intact to normal conversational volume.
Normal UE movements bilaterally.
Neck: full ROM.
Chest: no dyspnea
Heart: no JVD
Ext: (-) Clubbing, (-) Cyanosis, (-) Edema
IMPRESSIONS/RECOMMENDATIONS:
Abrupt onset of worsening back pain with significant ambulatory dysfunction and autonomic dysfunction
Differential diagnosis includes transverse myelitis. The levels of changes are surrounding moderate central canal stenosis.
Consider repeat MRI imaging of the thoracic spine with contrast
Check lumbar puncture, appreciate interventional radiology evaluation
Check blood work for potential inflammatory indicators
Consider high-dose steroids based on lumbar puncture results
There is some evidence of a monoclonal protein in testing done in November 2024, consider hematology consultation
D/W patient
All questions answered.
Will continue to follow patient.
Original Note:
Today's Communication / Plan
-
.
Neuro Assessment/Plan
Assessment
This is an 79-year-old female who has presented to the hospital on 01/10/25 with report of hypothermia, hypotension, and rectal bleeding. Patient was hospitalized at [facility] in November 2024 with similar symptoms. She was evaluated by our Neurology
service then and also in April 2024 for hallucinations.
Neuro Imaging:
1. MRI Brain w/ and w/o contrast 11/30/24: No acute intracranial abnormality noted. Normal MR appearance of the brainstem/layla.
2. Cervical Spine MRI 11/30/24: Multilevel degenerative changes of the cervical spine as detailed, worst at C5-6 and C6/7 where disc and uncovertebral/facet disease contribute to moderate spinal canal and mild to severe neural foraminal stenosis at
these levels.
3. EEG 11/29/24: This is an abnormal awake and asleep EEG due to intermittent right frontotemporal slowing indicative of focal cerebral dysfunction nonspecific in terms of etiology.� No epileptiform activity was seen.�
4. MRI Thoracic spine w/o contrast 01/22/25: No MR evidence for discitis or osteomyelitis involving the thoracic spine. Small bilateral pleural effusions. 3 focal areas of increased T2 and STIR signal within the thoracic spinal cord as described, at
the T5, superior T7, and T8/T8-9 levels. Etiology for this focal signal intensity abnormality is uncertain. Main differential considerations of demyelinating lesions, transverse myelitis, and ischemia.
5. MRI Lumbar spine w/o contrast 01/22/25: Moderate to severe changes of degenerative disc disease at L4-5 and L5-S1. Since previous MRI of February 09, 2024, development of fluid signal intensity diffusely involving the disc space at L4-5 and
involving the anterior aspect of the disc space at L5-S1. On recent CT scan, vacuum disc phenomenon at L4-5 is evidence against discitis and osteomyelitis. Also, the lack of significant decreased T1-weighted signal within the endplates at L4-5 and
L5-S1 is also evidence against discitis, as well as relatively stable appearance of the endplates on CT scans dating back to November 2024. See above discussion. Changes of degenerative disc disease, greatest at L4-5 and L5-S1. See above narrative
for detailed findings at each level.
I. Ambulatory dysfunction; MRI thoracic spine demonstrates three areas of increased signal concerning for demyelinating disease.
II. Autonomic dysfunction.
III. Hallucinations.
Plan
-Lumbar puncture pending.
-Continue home apixaban for stroke prevention.
-Continue midodrine, abdominal binder, TRACE stockings.
-Goal normotension.
-Check orthostatic vital signs BID.
-PT/OT evaluations.
Subjective/Objective
Subjective Data
Date of Service: January 24, 2025
Abnormal MRI thoracic spine results on 01/22/25. Patient reports ongoing back pain. Both entire legs feel numb. She is still unable to ambulate. She denies any difficulty with bladder/bowels.
Objective Data
Vital Signs
Temp Pulse Resp BP Pulse Ox
97.7 F 67 16 131/69 95
01/24/25 07:30 01/24/25 08:39 01/24/25 07:30 01/24/25 08:39 01/24/25 07:30
Lab Results
01/21/25 06:53
01/21/25 06:52
PT 20.2 Sec (11.4-14.6) H 01/11/25 02:35
INR 1.67 01/11/25 02:35
APTT 53.4 Sec (23.4-35.0) H 01/11/25 02:35
Sodium 136 mmol/L (135-145) 01/21/25 06:52
Potassium 3.4 mmol/L (3.5-5.1) L 01/21/25 06:52
BUN 26 mg/dl (7-17) H 01/21/25 06:52
Glucose 54 mg/dl (70-99) L* 01/21/25 06:52
Calcium 8.0 mg/dl (8.4-10.2) L 01/21/25 06:52
Phosphorus 3.3 mg/dl (2.5-4.5) 01/13/25 04:54
Jhn-U-Cbrjplltpxi Pept 1170 pg/ml 01/16/25 10:44
Vitamin B12 > 1000 pg/ml (239-931) H 01/13/25 04:54
Patient Allergies
celecoxib Allergy (Verified 01/10/25 21:41)
stomach pains
codeine Allergy (Verified 01/10/25 13:09)
nausea/vomiting
Review of Systems
-
History Source: Patient
EENT: Negative Blurry Vision, Decreased Vision or Swallowing Difficulty
Neuro: Weakness and Numbness; Negative Dizzy, Headache, Ataxia, Tremors or Speech Problem
Physical Exam
-
General: Well Developed, Well Nourished and No Apparent Distress
HEENT: Normocephalic and Atraumatic
Respiratory: No Dyspnea
GI: Non-distended
Extremities: Edema +2 (BLE, PVD/lymphedema changes)
Psych: Unremarkable
Extended Neurological Exam
Mood & Affect: Mood Unremarkable and Affect Unremarkable
Attention Span & Concentration: Awake, Alert and Interactive
Memory: Unremarkable and Able to Recall
Tremor: Hand Tremor Absent and Head Tremor Absent
Speech: Quality Unremarkable, Quantity Unremarkable and Rate of Production Unremarkable
Cranial Nerves III, IV, : Extraocular Movement: Extraocular Movement Full in all Directions
Muscle Strength, Overall: Other (R dorsiflexion 4-/5, otherwise 5/5 in all extremities. +Right back pain with lifting legs.)
Pronator Drift: No Drift in Upper Extremities and No Drift in Lower Extremities
Deep Tendon Reflexes: Absent Throughout
Coordination: Urbbmx-dhiw-clfunt Testing Unremarkable
Data Reviewed
-
MRI Head: Report Reviewed and Image Reviewed
MRI Cervical Spine: Report Reviewed and Image Reviewed
MRI Thoracic Spine: Report Reviewed and Image Reviewed
MRI Lumbar Spine: Report Reviewed and Image Reviewed
Medical Test Reports: Pending
Orthostatic Testing: Report Reviewed
Labs: Report Reviewed
HgbA1C: Report Reviewed
Reviewed with: Physician and Patient
Medications
-
Active Medications
Generic Name Dose Route Start Last Admin
Trade Name Freq PRN Reason Stop Dose Admin
Acetaminophen 650 mg 01/20/25 20:57 01/22/25 15:47
Acetaminophen 325 Mg Tablet PO 02/17/25 20:56 650 mg
Q4HPRN PRN Administration
mild pain/TOMPKINS/temp>100.5
Amiodarone HCl 200 mg 01/11/25 08:00 01/24/25 08:27
Amiodarone 200 Mg Tablet PO 02/08/25 07:59 200 mg
DAILY CHAO Administration
Apixaban 5 mg 01/22/25 20:00 01/24/25 08:25
Apixaban (Eliquis) 5 Mg Tablet PO 02/19/25 19:59 5 mg
BID CHAO Administration
Calcium/Vitamin D 500 mg 01/10/25 20:00 01/24/25 08:26
Calcium Carbonate 500 Mg/Vitamin D 5 Mcg (200 Units) Tablet PO 02/07/25 19:59 500 mg
BID CHAO Administration
Cyanocobalamin 1,000 mcg 01/11/25 08:00 01/24/25 08:26
Cyanocobalamin (Vitamin B-12) 500 Mcg Tablet PO 02/08/25 07:59 1,000 mcg
DAILY CHAO Administration
Guaifenesin 1,200 mg 01/11/25 22:00 01/24/25 08:26
Guaifenesin 600 Mg Extended Release Tablet PO 02/08/25 21:59 1,200 mg
Q12 CHAO Administration
Hydrocortisone 15 mg 01/20/25 08:00 01/24/25 08:26
Hydrocortisone 10 Mg Tablet PO 02/17/25 07:59 15 mg
DAILY CHAO Administration
Hydrocortisone 5 mg 01/20/25 16:00 01/23/25 16:21
Hydrocortisone 10 Mg Tablet PO 02/17/25 15:59 5 mg
DAILY@1600 CHAO Administration
Hydrocortisone Acetate 25 mg 01/11/25 22:00 01/23/25 22:13
Anusol Hc 25 Mg Rectal Suppository RECTAL 02/08/25 21:59 25 mg
HS CHAO Administration
Levothyroxine Sodium 150 mcg 01/20/25 06:45 01/24/25 05:47
Levothyroxine 150 Mcg Tablet PO 02/17/25 05:59 150 mcg
DAILY @ 0600 CHAO Administration
Magnesium Oxide 400 mg 01/11/25 08:00 01/11/25 08:29
Magnesium Oxide 400 Mg Tablet PO 02/08/25 07:59 400 mg
On Hold: 01/11/25 15:16 DAILY CHAO Administration
Miconazole Nitrate 1 applic 01/10/25 23:56
Miconazole Powder Bottle TOPICAL 02/07/25 23:55
BIDPRN PRN
skin folds
Midodrine 10 mg 01/17/25 11:22 01/24/25 08:39
Midodrine 5 Mg Tablet PO 02/07/25 19:59 10 mg
TID@0800,1300,1800 CHAO Administration
Pantoprazole Sodium 40 mg 01/13/25 20:00 01/24/25 08:27
Pantoprazole 40 Mg Delayed Release Tablet PO 02/10/25 19:59 40 mg
BID CHAO Administration
Sodium Chloride 0 flush 01/10/25 20:00
Sodium Chloride 0.9% (Flush) Syringe IV 02/07/25 19:59
PER PROTOCOL CHAO
Thiamine HCl 100 mg 01/11/25 08:00 01/24/25 08:25
Thiamine 100 Mg Tablet PO 02/08/25 07:59 100 mg
DAILY CHAO Administration
Vancomycin HCl 125 mg 01/21/25 12:00 01/24/25 05:47
Vancomycin Oral Solution 50 Mg/Ml In Oral Syringe PO 01/31/25 11:59 125 mg
Q6 CHAO Administration
Home Medications
�Medication �Instructions �Recorded
apixaban 5 mg tablet (Eliquis) 5 mg PO BID #60 tabs 05/18/17
cyanocobalamin (vitamin B-12) 1,000 mcg PO DAILY Supplement 02/19/18
1,000 mcg tablet
magnesium oxide 500 mg PO DAILY ##30 02/21/18
amiodarone 200 mg tablet (Pacerone) 200 mg PO DAILY Arrhythmia 12/23/18
levothyroxine 137 mcg tablet 137 mcg PO DAILY Thyroid 05/03/24
(Levoxyl)
calcium 600 mg (as carbonate)-vit 1 tab PO BID Supplement 11/21/24
D3 20 mcg (800 unit) chewable
tablet (Caltrate plus D)
furosemide 20 mg tablet 20 mg PO DAILY Fluid 11/21/24
Retention/Swelling
ijboabfhmlmk-zgutwnsx-eoznuh tablet 1 tab PO DAILY Supplement 11/21/24
midodrine 5 mg tablet 5 mg PO TID@0800,1300,1800 #90 tabs 12/01/24
thiamine mononitrate (vit B1) 100 100 mg PO DAILY #100 tabs 12/01/24
mg tablet
[2025-01-24 11:40] LABS: INR 1.21; PT 15.8 Sec (11.4-14.6)
[2025-01-24 12:30] VITALS: BP 138/75
[2025-01-24 14:55] VITALS: BP 138/64; BP_SYST 66
--- NOTE | 2025-01-24 15:01 | W.PN.HOSP.TC ---
Today's Communication/Plan
-
LP for findings on thoracic MRI
dc planning for SNF still underway
Assessment / Plan
Assessment / Plan
79yo F with PMHX of cholecystectoiny, Parkinsons, hypothyroidism, Afib on eliquis, poor ambulatory capacity, came with chills for few days before admission, found shock and hypothermia. Patient hd Hx of the same with negative w/u, possibly due to
autonomic dysfuction discharged from at the end of Nov 2024. Also found lower GIB 2/2 bleeding hemorrhoids vs interspinal ischemia due to shock that later resolved and anemia was not progressing while continued Eliquis. Hematology evaluated for
monoclonal spike seen on previous admission - outpatient f/u. Tremors improved on Sinemet. Outpatient neurologist advised. Repeat TSH in 2-3 weeks since new Levothyroxine started. Medically stable for d/c to [facility] as recommended by PT/OT. Recurrent
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
A/P:
#Shock, unclear mechanism, cannot r/o autonomic dysfunction - neurogenic hypotension vs proctitis
#Hypothermia
#Hypothyroidism
#Pre-syncope 2/2 orthostatic hypotension with blurry vision
#Autonomic dysfunction with symptomatic orthostatic hypotension
Random cortisol low, however ACTH neg for adrenal insufficiency. TSH elevated -increased synthroid, discussing with Endo if reasonable to continue empiric Hydrocortisone (currently on it): recommended to cont Hydrocotisone 15mg AM and 5mg PM.
Synthroid also increased to 150mcg since TSH elevated.
On midodrine for orthostatic hypotension
Zosyn completed as per ID: CXR - no pneumonia, no signs of UTI with absent pyuria, Bcx NGTD
Warming blanket when symptomatic only (chills, shivering)
Cardiology consult: no significant valvular deficiency, arrhythmia. Recommended abd binder and compression stocking up to the thigh when upright - ordered
Planned for LP on last admission, but since improved - deferred by neurologist. See below, plans for LP inpt now. Neurology consult due to possible Parkinsons as per previous eval: recommended Rotigotine 1 mg/24 hours patch, but patient declined and
would like to follow with neurologist as outpatient in [facility]
#Spinal stenosis with worsening lower back pain
MRI thoracic spine shows no discitis or osteomyelitis. However, 3 focal areas of increased T2 and STIR signal within the thoracic spinal cord as described, at the T5, superior T7, and T8/T8-9 levels. Etiology for this focal signal intensity
abnormality is uncertain. Main differential considerations of demyelinating lesions, transverse myelitis, and ischemia.
MRI L-spine IMPRESSION: Moderate to severe changes of degenerative disc disease at L4-5 and L5-S1. Since previous MRI of February 09, 2024, development of fluid signal intensity diffusely involving the disc space at L4-5 and involving the anterior
aspect of the disc space at L5-S1. On recent CT scan, vacuum disc phenomenon at L4-5 is evidence against discitis and osteomyelitis. Also, the lack of significant decreased T1-weighted signal within the endplates at L4-5 and L5-S1 is also evidence
against discitis, as well as relatively stable appearance of the endplates on CT scans dating back to November 2024. See above discussion.
I discussed with neurology and asked them to comment, and they are recommending LP
#Abdominal distension
resolved on Lasix
patient has BM, no concern for obstruction
Can be volume overload with hydration due to holding Lasix
#Small R kidney lesions, probably cyst
#L adrenal lesion: old hemorrhage or cyst
Repeat outpatient CT in 6mo
#Hx of positive RF and antiCCP Ab
might benefit from outpatient gear nicker
#Macrocytic anemia
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
[employer]
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
b12 and folate WNL
Hematology consult: recent SPEP, Immunoglobulins, FLC, haptoglobin
#SNOW on CKD stage 3b
resolved
Cr baseline 1.2-1.4
Hydrate
maintain BP
follow Cr
#Parkinsonism with hallucination and dysautonomia
As per neurology assessment 2/28/25
Levodopa attempted but developed worsening of orthostasis
Liberalize fluid intake
avoid BP meds
Waste-high stocking, abdominal binder
Midodrine
Hydrocortisone
Wean off pressors
Recent MRI brain in Nov 2024 - no acute findings
#Paroxysmal Afib
well controlled
cont Amiodarone
Eliquis: decrease dose as CR>1.5 and age =79yo
#Lower GIB 2/2 hemorrhoids
GI consult: cont Eliquis
Follow CBC
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
carrier
With multitude of comorbidities - reasonable to complete 10 days Vanco especially since now with loose stool
DVT ppx Eliquis
Full code
For SNF when symptomatic orthostais has improved
Anticipated Discharge: 24 - 48 hours
Subjective/Interval History
-
Date of Service: January 24, 2025
Patient states she still having pain in her right flank
Objective Data
-
Labs:
Laboratory Results
01/24/25
11:15
PT 15.8 H
INR 1.21
Vital Signs:
Vital Signs
Temp Pulse Resp BP Pulse Ox
97.7 F 75 16 138/75 95
01/24/25 07:30 01/24/25 12:36 01/24/25 07:30 01/24/25 12:36 01/24/25 07:30
I&O
01/23/25 01/24/25 01/25/25
06:59 06:59 06:59
Intake Total 720 / 720 600 / 600
Output Total 100 / 100
Balance 620 / 620 600 / 600
Review of Systems
-
History Source: Patient
All other systems: Reviewed and negative
Physical Exam
-
General: No Apparent Distress
HEENT: Moist Mucous Membranes, Anicteric and PERRLA
Respiratory: Clear to Auscultation; Negative Wheezes, Rales or Rhonchi
Cardiac: Regular Rhythm and S1/S2; Negative Murmur, Rub or Gallop
GI: Soft, Nontender, Nondistended and Normal Bowel Sounds
Musculoskeletal: No Edema
Skin: Warm and Dry; Negative Rash, Ulcers or Lesions
Neuro: Awake and AO x 3
Hematologic / Lymphatic: No Lymphadenopathy
Psych: Calm
Data Reviewed
-
MRI: Report Reviewed by me, Discussed with Physician and Discussed with Patient
Labs: Labs Reviewed by me and Discussed with Patient
[2025-01-24 15:46] VITALS: BP 148/69
[2025-01-24 16:39] LABS: CSF Color Red; Red Cell Count/CSF 16000 mm^3
[2025-01-24 16:42] LABS: CSF Color Red; CSF Tube # Clarity Turbid; White Cell Count/CSF 262 mm^3 (0-5)
[2025-01-24 16:43] LABS: Red Cell Count/CSF 10000 mm^3; White Blood Cell Count/CSF 282 mm^3 (0-5)
--- NOTE | 2025-01-24 16:47 | CM ---
PT OT indicate SNF at [facility].
As per [facility] accepted. Check bed availability at me.
Pt had Lumbar puncture today.
Will need auth with [facility].
PLAN To Snf after located and auth obtained
[2025-01-24 17:15] LABS: CSF Granulocytes 9 %
[2025-01-24 17:16] LABS: Spinal Fluid Granulocytes 8 %; Spinal Fluid Lymphocytes 92 %
[2025-01-24] MEDS: CORTEF PO (17:17)
[2025-01-24] MEDS: SOLU-MEDROL 258 MG IV (17:56)
[2025-01-24] MEDS: ANUSOL HC 25 MG RECTAL (21:47)
[2025-01-24 23:00] VITALS: BP 153/69
[2025-01-25] MEDS: FIRVANQ 125 MG PO ×4 (05:45→23:52)
[2025-01-25] MEDS: SYNTHROID 150 MCG PO (05:45)
[2025-01-25 06:37] LABS: Hematocrit 34.5 % (37.0-47.0); Hemoglobin 10.9 g/dL (12.0-16.0); Mean Corp Hgb Conc. 31.6 g/dL (33.0-37.0); Mean Corpuscular Volume 109.5 fL (81.0-99.0); Nucleated Red Blood Cells % 0 %; Platelet Count 260 10^3/uL (130-400); Red Cell Dist. Width 16.6 % (11.5-14.5)
[2025-01-25 07:24] LABS: ALT (SGPT) 32 U/L (0-35); AST (SGOT) 29 U/L (14-36); Albumin 2.7 g/dl (3.5-5.0); Alkaline Phosphatase 99 U/L (38-126); Blood Urea Nitrogen 25 mg/dl (7-17); Calcium 8.4 mg/dl (8.4-10.2); Carbon Dioxide 32 mmol/L (22-30); Chloride 104 mmol/L (98-107); Estimated Creatinine Clearance 45 ml/min; Glucose 147 mg/dl (70-99); Potassium 4.6 mmol/L (3.5-5.1); Sodium 135 mmol/L (135-145); Total Protein 5.8 g/dl (6.3-8.2); eGFR 45.76
[2025-01-25 07:29] VITALS: BP 156/84
[2025-01-25] MEDS: MUCINEX 1200 MG PO ×2 (08:55→20:45)
[2025-01-25] MEDS: OSCAL 500 + D 500 MG PO ×2 (09:04→20:45)
[2025-01-25] MEDS: VITAMIN B-12 1000 MCG PO (09:04)
[2025-01-25] MEDS: ELIQUIS 5 MG PO ×2 (09:04→20:44)
[2025-01-25] MEDS: PACERONE 200 MG PO (09:05)
[2025-01-25] MEDS: VITAMIN B1 100 MG PO (09:05)
[2025-01-25] MEDS: PROTONIX 40 MG PO ×2 (09:05→20:44)
[2025-01-25] MEDS: NSS 1000 IV ×2 (09:06→21:52)
--- NOTE | 2025-01-25 09:10 | W.PN.NEURO.1 ---
Addendum entered and electronically signed by Bernardino Medrano MD 01/25/25 10:49:
Studies reviewed.
I have personally examined the patient. I reviewed and agree with the FINANCIAL AID's Note.
My addenda:
Awake, alert, interactive. No acute distress.
Speech intact.
Follows 2-step requests w/o difficulty. No tremor.
Extra-ocular movements grossly intact.
Facial movements full and symmetric. Hearing intact to normal conversational volume.
Normal UE movements bilaterally. Patient able to lift bilateral lower extremities off the bed.
Neck: full ROM.
Chest: no dyspnea
Heart: no JVD
Ext: (-) Clubbing, (-) Cyanosis, (-) Edema
IMPRESSIONS/RECOMMENDATIONS:
Abrupt onset of worsening back pain with significant ambulatory dysfunction and autonomic dysfunction. There is evidence by lumbar puncture of a transverse myelitis. Unclear if this is secondary to the patient's known rheumatoid arthritis,
associated with a suggestion of multiple myeloma, or idiopathic
Repeat lumbar puncture as the first was successful only for 3 mL
Consider repeat MRI imaging of the thoracic spine with contrast
Check blood work for potential inflammatory indicators
Continue newly initiated high-dose steroids based on lumbar puncture results
D/W patient
All questions answered.
Will continue to follow patient.
Original Note:
Documented by User: Haleigh Alaniz NP 01/25/25 10:26
Today's Communication / Plan
-
.
Neuro Assessment/Plan
Assessment
This is an 79-year-old female who has presented to the hospital on 01/10/25 with report of hypothermia, hypotension, and rectal bleeding. Patient was hospitalized at [facility] in November 2024 with similar symptoms. She was evaluated by our Neurology
service then and also in April 2024 for hallucinations.
IMPRESSIONS/RECOMMENDATIONS:
Abrupt onset of worsening back pain with significant ambulatory dysfunction and autonomic dysfunction
Differential diagnosis includes transverse myelitis. The levels of changes are surrounding moderate central canal stenosis.
Neuro Imaging:
1. MRI Brain w/ and w/o contrast 11/30/24: No acute intracranial abnormality noted. Normal MR appearance of the brainstem/layla.
2. Cervical Spine MRI 11/30/24: Multilevel degenerative changes of the cervical spine as detailed, worst at C5-6 and C6/7 where disc and uncovertebral/facet disease contribute to moderate spinal canal and mild to severe neural foraminal stenosis at
these levels.
3. EEG 11/29/24: This is an abnormal awake and asleep EEG due to intermittent right frontotemporal slowing indicative of focal cerebral dysfunction nonspecific in terms of etiology.� No epileptiform activity was seen.�
4. MRI Thoracic spine w/o contrast 01/22/25: No MR evidence for discitis or osteomyelitis involving the thoracic spine. Small bilateral pleural effusions. 3 focal areas of increased T2 and STIR signal within the thoracic spinal cord as described, at
the T5, superior T7, and T8/T8-9 levels. Etiology for this focal signal intensity abnormality is uncertain. Main differential considerations of demyelinating lesions, transverse myelitis, and ischemia.
5. MRI Lumbar spine w/o contrast 01/22/25: Moderate to severe changes of degenerative disc disease at L4-5 and L5-S1. Since previous MRI of February 09, 2024, development of fluid signal intensity diffusely involving the disc space at L4-5 and
involving the anterior aspect of the disc space at L5-S1. On recent CT scan, vacuum disc phenomenon at L4-5 is evidence against discitis and osteomyelitis. Also, the lack of significant decreased T1-weighted signal within the endplates at L4-5 and
L5-S1 is also evidence against discitis, as well as relatively stable appearance of the endplates on CT scans dating back to November 2024. See above discussion. Changes of degenerative disc disease, greatest at L4-5 and L5-S1. See above narrative
for detailed findings at each level.
6. CSF 01/24/25:
I. Ambulatory dysfunction; MRI thoracic spine demonstrates three areas of increased signal concerning for demyelinating disease.
II. Autonomic dysfunction.
III. Hallucinations.
Plan
-Repeat lumbar puncture today due to low fluid output yesterday, need additional fluid for further analysis.
-There is some evidence of a monoclonal protein in testing done in November 2024, consider hematology consultation.
-Continue methylprednisolone 1000mg IV x5 days, today is day 2/5.
-Continue home apixaban for stroke prevention.
-Continue midodrine, abdominal binder, TRACE stockings.
-Goal normotension.
-Check orthostatic vital signs BID.
-PT/OT evaluations.
Subjective/Objective
Subjective Data
Date of Service: January 25, 2025
Patient reports her back discomfort has improved today, now it is a /10 instead of a /10. She notes ongoing bilateral lower extremity numbness and weakness.
Objective Data
Vital Signs
Temp Pulse Resp BP Pulse Ox
97.4 F 66 17 156/84 94
01/25/25 07:29 01/25/25 07:29 01/25/25 07:29 01/25/25 07:29 01/25/25 07:29
Lab Results
01/25/25 06:22
01/25/25 06:22
PT 15.8 Sec (11.4-14.6) H 01/24/25 11:15
INR 1.21 01/24/25 11:15
APTT 53.4 Sec (23.4-35.0) H 01/11/25 02:35
Sodium 135 mmol/L (135-145) 01/25/25 06:22
Potassium 4.6 mmol/L (3.5-5.1) 01/25/25 06:22
BUN 25 mg/dl (7-17) H 01/25/25 06:22
Glucose 147 mg/dl (70-99) H 01/25/25 06:22
Calcium 8.4 mg/dl (8.4-10.2) 01/25/25 06:22
Phosphorus 3.3 mg/dl (2.5-4.5) 01/13/25 04:54
Qcj-X-Fxqkpqqjoxr Pept 1170 pg/ml 01/16/25 10:44
Vitamin B12 > 1000 pg/ml (857-331) H 01/13/25 04:54
Patient Allergies
celecoxib Allergy (Verified 01/10/25 21:41)
stomach pains
codeine Allergy (Verified 01/10/25 13:09)
nausea/vomiting
Review of Systems
-
History Source: Patient
Respiratory: Cough
Neuro: Weakness and Numbness; Negative Dizzy, Headache, Ataxia, Tremors or Speech Problem
Physical Exam
-
General: No Apparent Distress
Eyes: No Ptosis
HEENT: Normocephalic
Neck: Full Range of Motion
GI: Non-distended
Extremities: Edema +2
Extended Neurological Exam
Attention Span & Concentration: Awake, Alert and Interactive
Memory: Unremarkable and Able to Recall
Tremor: Hand Tremor Absent and Head Tremor Absent
Involuntary Movement: None
Speech: Quality Unremarkable, Quantity Unremarkable and Rate of Production Unremarkable
Cranial Nerves III, IV, : Extraocular Movement: Extraocular Movement Full in all Directions
Cranial Nerve VII: Facial Symmetry: Normal Facial Symmetry
Cranial Nerve VIII: Hearing: Unremarkable Hearing to Normal Conversational Volume
Muscle Strength, Overall: Other (BUE 5/5, LLE 4+/5, RLE 5-/5)
Pronator Drift: No Drift in Upper Extremities and Drift in Left Lower Extremity
Coordination: Aqjqov-sczk-hnsftt Testing Unremarkable
Data Reviewed
-
MRI Thoracic Spine: Report Reviewed and Image Reviewed
MRI Lumbar Spine: Report Reviewed and Image Reviewed
Medical Test Reports: Report Reviewed (CSF)
Labs: Report Reviewed
Reviewed with: Physician and Patient
Medications
-
Active Medications
Generic Name Dose Route Start Last Admin
Trade Name Freq PRN Reason Stop Dose Admin
Acetaminophen 650 mg 01/20/25 20:57 01/22/25 15:47
Acetaminophen 325 Mg Tablet PO 02/17/25 20:56 650 mg
Q4HPRN PRN Administration
mild pain/TOMPKINS/temp>100.5
Amiodarone HCl 200 mg 01/11/25 08:00 01/25/25 09:05
Amiodarone 200 Mg Tablet PO 02/08/25 07:59 200 mg
DAILY CHAO Administration
Apixaban 5 mg 01/22/25 20:00 01/25/25 09:04
Apixaban (Eliquis) 5 Mg Tablet PO 02/19/25 19:59 5 mg
BID CHAO Administration
Calcium/Vitamin D 500 mg 01/10/25 20:00 01/25/25 09:04
Calcium Carbonate 500 Mg/Vitamin D 5 Mcg (200 Units) Tablet PO 02/07/25 19:59 500 mg
BID CHAO Administration
Cyanocobalamin (Vitamin B12) 1,000 mcg 01/11/25 08:00 01/25/25 09:04
Cyanocobalamin (Vitamin B-12) 500 Mcg Tablet PO 02/08/25 07:59 1,000 mcg
DAILY CHAO Administration
Guaifenesin 1,200 mg 01/11/25 22:00 01/25/25 08:55
Guaifenesin 600 Mg Extended Release Tablet PO 02/08/25 21:59 1,200 mg
Q12 CHAO Administration
Hydrocortisone 15 mg 01/20/25 08:00 01/24/25 08:26
Hydrocortisone 10 Mg Tablet PO 02/17/25 07:59 15 mg
On Hold: 01/24/25 17:10 DAILY CHAO Administration
Hydrocortisone 5 mg 01/20/25 16:00 01/24/25 17:17
Hydrocortisone 10 Mg Tablet PO 02/17/25 15:59 Not Given
On Hold: 01/24/25 17:10 DAILY@1600 CHAO
Hydrocortisone Acetate 25 mg 01/11/25 22:00 01/24/25 21:47
Anusol Hc 25 Mg Rectal Suppository RECTAL 02/08/25 21:59 25 mg
HS CHAO Administration
Sodium Chloride 1,000 mls @ 80 mls/hr 01/25/25 08:30 01/25/25 09:06
Nss IV 1,000 mls
.[id number] CHAO Administration
Methylprednisolone Sodium 258 mls @ 258 mls/hr 01/25/25 10:00 01/25/25 10:11
Succinate 1,000 mg/ Sodium IV 01/28/25 10:59 258 mls
Chloride Q24H CHAO Administration
Levothyroxine Sodium 150 mcg 01/20/25 06:45 01/25/25 05:45
Levothyroxine 150 Mcg Tablet PO 02/17/25 05:59 150 mcg
DAILY @ 0600 CHAO Administration
Lorazepam 1 mg 01/24/25 10:30
Lorazepam 1 Mg Tablet PO
ONCE PRN PRN
SEE LABEL COMMENTS
Magnesium Oxide 400 mg 01/11/25 08:00 01/11/25 08:29
Magnesium Oxide 400 Mg Tablet PO 02/08/25 07:59 400 mg
On Hold: 01/11/25 15:16 DAILY CHAO Administration
Miconazole Nitrate 1 applic 01/10/25 23:56
Miconazole Powder Bottle TOPICAL 02/07/25 23:55
BIDPRN PRN
skin folds
Midodrine 10 mg 01/17/25 11:22 01/25/25 08:55
Midodrine 5 Mg Tablet PO 02/07/25 19:59 10 mg
TID@0800,1300,1800 CHAO Administration
Pantoprazole Sodium 40 mg 01/13/25 20:00 01/25/25 09:05
Pantoprazole 40 Mg Delayed Release Tablet PO 02/10/25 19:59 40 mg
BID CHAO Administration
Sodium Chloride 0 flush 01/10/25 20:00
Sodium Chloride 0.9% (Flush) Syringe IV 02/07/25 19:59
PER PROTOCOL CHAO
Thiamine HCl 100 mg 01/11/25 08:00 01/25/25 09:05
Thiamine 100 Mg Tablet PO 02/08/25 07:59 100 mg
DAILY CHAO Administration
Vancomycin HCl 125 mg 01/21/25 12:00 01/25/25 05:45
Vancomycin Oral Solution 50 Mg/Ml In Oral Syringe PO 01/31/25 06:01 125 mg
Q6 CHAO Administration
Home Medications
�Medication �Instructions �Recorded
apixaban 5 mg tablet (Eliquis) 5 mg PO BID #60 tabs 05/18/17
cyanocobalamin (vitamin B-12) 1,000 mcg PO DAILY Supplement 02/19/18
1,000 mcg tablet
magnesium oxide 500 mg PO DAILY ##30 02/21/18
amiodarone 200 mg tablet (Pacerone) 200 mg PO DAILY Arrhythmia 12/23/18
levothyroxine 137 mcg tablet 137 mcg PO DAILY Thyroid 05/03/24
(Levoxyl)
calcium 600 mg (as carbonate)-vit 1 tab PO BID Supplement 11/21/24
D3 20 mcg (800 unit) chewable
tablet (Caltrate plus D)
furosemide 20 mg tablet 20 mg PO DAILY Fluid 11/21/24
Retention/Swelling
evfjrngzygxq-utwrjjlz-oljwcx tablet 1 tab PO DAILY Supplement 11/21/24
midodrine 5 mg tablet 5 mg PO TID@0800,1300,1800 #90 tabs 12/01/24
thiamine mononitrate (vit B1) 100 100 mg PO DAILY #100 tabs 12/01/24
mg tablet

Documented by User: Bernardino Medrano MD 01/25/25 10:40
Past History
Past History
ED Past Medical History: Arrthythmia (V. tach), HTN, Hypercholesterolemia, Hypothyroidism and Other (RA, colon Polyps)
ED Past Surgical History: Cardiac (Pacemaker/defibrillator), Cholecystectomy, Gynecological (Hysterectomy), Orthopedic (bilateral knee replacements) and Other (noncontributory )
Social History
Tobacco: Former smoker (quit 20 years ago)
Alcohol: None
Drug: None
Personal:
Living: with family
Employment: Retired
Family History
Family History: Other (Reviewed and noncontributory)
Medications
-
Medications:
Generic Name Dose Route Start Last Admin
Trade Name Freq PRN Reason Stop Dose Admin
Acetaminophen 650 mg 01/20/25 20:57 01/22/25 15:47
Acetaminophen 325 Mg Tablet PO 02/17/25 20:56 650 mg
Q4HPRN PRN Administration
mild pain/TOMPKINS/temp>100.5
Amiodarone HCl 200 mg 01/11/25 08:00 01/25/25 09:05
Amiodarone 200 Mg Tablet PO 02/08/25 07:59 200 mg
DAILY CHAO Administration
Apixaban 5 mg 01/22/25 20:00 01/25/25 09:04
Apixaban (Eliquis) 5 Mg Tablet PO 02/19/25 19:59 5 mg
BID CHAO Administration
Calcium/Vitamin D 500 mg 01/10/25 20:00 01/25/25 09:04
Calcium Carbonate 500 Mg/Vitamin D 5 Mcg (200 Units) Tablet PO 02/07/25 19:59 500 mg
BID CHAO Administration
Cyanocobalamin (Vitamin B12) 1,000 mcg 01/11/25 08:00 01/25/25 09:04
Cyanocobalamin (Vitamin B-12) 500 Mcg Tablet PO 02/08/25 07:59 1,000 mcg
DAILY CHAO Administration
Guaifenesin 1,200 mg 01/11/25 22:00 01/25/25 08:55
Guaifenesin 600 Mg Extended Release Tablet PO 02/08/25 21:59 1,200 mg
Q12 CHAO Administration
Hydrocortisone 15 mg 01/20/25 08:00 01/24/25 08:26
Hydrocortisone 10 Mg Tablet PO 02/17/25 07:59 15 mg
On Hold: 01/24/25 17:10 DAILY CHAO Administration
Hydrocortisone 5 mg 01/20/25 16:00 01/24/25 17:17
Hydrocortisone 10 Mg Tablet PO 02/17/25 15:59 Not Given
On Hold: 01/24/25 17:10 DAILY@1600 CHAO
Hydrocortisone Acetate 25 mg 01/11/25 22:00 01/24/25 21:47
Anusol Hc 25 Mg Rectal Suppository RECTAL 02/08/25 21:59 25 mg
HS CHAO Administration
Sodium Chloride 1,000 mls @ 80 mls/hr 01/25/25 08:30 01/25/25 09:06
Nss IV 1,000 mls
.[id number] CHAO Administration
Methylprednisolone Sodium 258 mls @ 258 mls/hr 01/25/25 10:00 01/25/25 10:11
Succinate 1,000 mg/ Sodium IV 01/28/25 10:59 258 mls
Chloride Q24H CHAO Administration
Levothyroxine Sodium 150 mcg 01/20/25 06:45 01/25/25 05:45
Levothyroxine 150 Mcg Tablet PO 02/17/25 05:59 150 mcg
DAILY @ 0600 CHAO Administration
Lorazepam 1 mg 01/24/25 10:30
Lorazepam 1 Mg Tablet PO
ONCE PRN PRN
SEE LABEL COMMENTS
Magnesium Oxide 400 mg 01/11/25 08:00 01/11/25 08:29
Magnesium Oxide 400 Mg Tablet PO 02/08/25 07:59 400 mg
On Hold: 01/11/25 15:16 DAILY CHAO Administration
Miconazole Nitrate 1 applic 01/10/25 23:56
Miconazole Powder Bottle TOPICAL 02/07/25 23:55
BIDPRN PRN
skin folds
Midodrine 10 mg 01/17/25 11:22 01/25/25 08:55
Midodrine 5 Mg Tablet PO 02/07/25 19:59 10 mg
TID@0800,1300,1800 CHAO Administration
Pantoprazole Sodium 40 mg 01/13/25 20:00 01/25/25 09:05
Pantoprazole 40 Mg Delayed Release Tablet PO 02/10/25 19:59 40 mg
BID CHAO Administration
Sodium Chloride 0 flush 01/10/25 20:00
Sodium Chloride 0.9% (Flush) Syringe IV 02/07/25 19:59
PER PROTOCOL CHAO
Thiamine HCl 100 mg 01/11/25 08:00 01/25/25 09:05
Thiamine 100 Mg Tablet PO 02/08/25 07:59 100 mg
DAILY CHAO Administration
Vancomycin HCl 125 mg 01/21/25 12:00 01/25/25 05:45
Vancomycin Oral Solution 50 Mg/Ml In Oral Syringe PO 01/31/25 06:01 125 mg
Q6 CHAO Administration
[2025-01-25] MEDS: SOLU-MEDROL 258 MG IV (10:11)
--- NOTE | 2025-01-25 11:35 | W.PN.HOSP.TC ---
Today's Communication/Plan
-
Assessment / Plan
Assessment / Plan
79yo F with PMHX of cholecystectoiny, Parkinsons, hypothyroidism, Afib on eliquis, poor ambulatory capacity, came with chills for few days before admission, found shock and hypothermia. Patient hd Hx of the same with negative w/u, possibly due to
autonomic dysfuction discharged from at the end of Nov 2024. Also found lower GIB 2/2 bleeding hemorrhoids vs interspinal ischemia due to shock that later resolved and anemia was not progressing while continued Eliquis. Hematology evaluated for
monoclonal spike seen on previous admission - outpatient f/u. Tremors improved on Sinemet. Outpatient neurologist advised. Repeat TSH in 2-3 weeks since new Levothyroxine started. Medically stable for d/c to STR as recommended by PT/OT. Recurrent
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
NAD
Scleral Anicteric
MMM
No JVD
CTABL
RRR, S1/S2
Soft, NT, ND, BS+
Warm, Dry
AAOx3
Calm
A/P:
#Shock, unclear mechanism, cannot r/o autonomic dysfunction - neurogenic hypotension vs proctitis
#Hypothermia
#Hypothyroidism
#Pre-syncope 2/2 orthostatic hypotension with blurry vision
#Autonomic dysfunction with symptomatic orthostatic hypotension
Random cortisol low, however ACTH neg for adrenal insufficiency. TSH elevated -increased synthroid, discussing with Endo if reasonable to continue empiric Hydrocortisone (currently on it): recommended to cont Hydrocotisone 15mg AM and 5mg PM.
Synthroid also increased to 150mcg since TSH elevated.
On midodrine for orthostatic hypotension
Zosyn completed as per ID: CXR - no pneumonia, no signs of UTI with absent pyuria, Bcx NGTD
Warming blanket when symptomatic only (chills, shivering)
Cardiology consult: no significant valvular deficiency, arrhythmia. Recommended abd binder and compression stocking up to the thigh when upright - ordered
Planned for LP on last admission, but since improved - deferred by neurologist. See below, plans for LP inpt now. Neurology consult due to possible Parkinsons as per previous eval: recommended Rotigotine 1 mg/24 hours patch, but patient declined and
would like to follow with neurologist as outpatient in [facility]
For LP today
#Spinal stenosis with worsening lower back pain
MRI thoracic spine shows no discitis or osteomyelitis. However, 3 focal areas of increased T2 and STIR signal within the thoracic spinal cord as described, at the T5, superior T7, and T8/T8-9 levels. Etiology for this focal signal intensity
abnormality is uncertain. Main differential considerations of demyelinating lesions, transverse myelitis, and ischemia.
MRI L-spine IMPRESSION: Moderate to severe changes of degenerative disc disease at L4-5 and L5-S1. Since previous MRI of February 09, 2024, development of fluid signal intensity diffusely involving the disc space at L4-5 and involving the anterior
aspect of the disc space at L5-S1. On recent CT scan, vacuum disc phenomenon at L4-5 is evidence against discitis and osteomyelitis. Also, the lack of significant decreased T1-weighted signal within the endplates at L4-5 and L5-S1 is also evidence
against discitis, as well as relatively stable appearance of the endplates on CT scans dating back to November 2024. See above discussion.
I discussed with neurology and asked them to comment, and they are recommending LP
Repeat LP, not enough volume.
IR requested IVF prior to procedure
#Abdominal distension
resolved on Lasix
patient has BM, no concern for obstruction
Can be volume overload with hydration due to holding Lasix
#Small R kidney lesions, probably cyst
#L adrenal lesion: old hemorrhage or cyst
Repeat outpatient CT in 6mo
#Hx of positive RF and antiCCP Ab
might benefit from outpatient shim plug cutter
#Macrocytic anemia
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
[employer]er
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
b12 and folate WNL
Hematology consult: recent SPEP, Immunoglobulins, FLC, haptoglobin
#SNOW on CKD stage 3b
resolved
Cr baseline 1.2-1.4
Hydrate
maintain BP
follow Cr
#Parkinsonism with hallucination and dysautonomia
As per neurology assessment 05/05/24
Levodopa attempted but developed worsening of orthostasis
Liberalize fluid intake
avoid BP meds
Waste-high stocking, abdominal binder
Midodrine
Hydrocortisone
Wean off pressors
Recent MRI brain in Nov 2024 - no acute findings
#Paroxysmal Afib
well controlled
cont Amiodarone
Eliquis: decrease dose as CR>1.5 and age =79yo
#Lower GIB 2/2 hemorrhoids
GI consult: cont Eliquis
Follow CBC
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
carrier
With multitude of comorbidities - reasonable to complete 10 days Vanco especially since now with loose stool
DVT ppx Eliquis
Full code
For SNF when symptomatic orthostasis has improved
Anticipated Discharge: > 48 hours
Subjective/Interval History
-
Date of Service: January 25, 2025
seen and examined
in good spirits
no acute overnight events
Objective Data
-
Labs:
Laboratory Results
01/25/25
06:22
WBC 3.3 L
Hgb 10.9 L
Hct 34.5 L
Plt Count 260
Sodium 135
Potassium 4.6
Chloride 104
Carbon Dioxide 32 H
BUN 25 H
Creatinine 1.2 H
Glucose 147 H
Calcium 8.4
Total Bilirubin 0.6
AST 29
ALT 32
Alkaline Phosphatase 99
Vital Signs:
Vital Signs
Temp Pulse Resp BP Pulse Ox
97.4 F 66 17 156/84 94
01/25/25 07:29 01/25/25 08:55 01/25/25 07:29 01/25/25 08:55 01/25/25 07:29
I&O
01/24/25 01/25/25 01/26/25
06:59 06:59 06:59
Intake Total 600 / 600 840 / 840
Balance 600 / 600 840 / 840
[2025-01-25 13:37] VITALS: BP 131/62; BP_SYST 64
--- NOTE | 2025-01-25 14:23 | CM ---
Patient unavailable-was at procedure
Referrals in [facility] for SNF
Left message with Darleen at [facility]
will need ins auth
PLAN: SNF, pending bed availability when stable
--- NOTE | 2025-01-25 14:43 | W.PN.UPDATE ---
Update Note
Progress Note Update
- Unsuccessful repeat LP this afternoon.
- Three levels attempted (L3-4, L4-5, L5-S1) with neele in adequate position on fluoroscopy but no return of fluid.
- Pt tolerated well. Bedrest for 1 hour.
[2025-01-25 14:46] VITALS: BP_SYST 65
--- NOTE | 2025-01-25 14:55 | PTCARENOTE ---
Received pt from IR via stretcher, pulled over to bed with assist x4. Will remain flat in bed for one hour. IR nurse informed this RN that 3 band aides are present on back.
[2025-01-25 15:45] VITALS: BP 139/70
--- NOTE | 2025-01-25 15:45 | PTCARENOTE ---
Temperature decreased, result= 95.0 rectal. MD made aware. Pt asymptomatic.
--- NOTE | 2025-01-25 16:46 | PTCARENOTE ---
Temperature rechecked, rectal=95.0. MD made aware.
--- NOTE | 2025-01-25 17:45 | PTCARENOTE ---
Rectal temp 95.0, made aware, warming blanket initiated. Will recheck temperature.
[2025-01-25 23:34] VITALS: BP 124/57
[2025-01-25] MEDS: ANUSOL HC 25 MG RECTAL (23:51)
[2025-01-25] MEDS: TYLENOL 650 MG PO (23:52)
[2025-01-26] MEDS: FIRVANQ 125 MG PO ×3 (05:07→18:03)
[2025-01-26] MEDS: SYNTHROID 150 MCG PO (05:07)
[2025-01-26 07:34] VITALS: BP 120/62
[2025-01-26] MEDS: VITAMIN B-12 1000 MCG PO (08:11)
[2025-01-26] MEDS: ELIQUIS 5 MG PO ×2 (08:11→20:29)
[2025-01-26] MEDS: OSCAL 500 + D 500 MG PO ×2 (08:11→20:30)
[2025-01-26] MEDS: PROTONIX 40 MG PO ×2 (08:11→20:29)
[2025-01-26] MEDS: PACERONE 200 MG PO (08:11)
[2025-01-26] MEDS: MUCINEX 1200 MG PO ×2 (08:12→20:30)
[2025-01-26] MEDS: VITAMIN B1 100 MG PO (08:12)
--- NOTE | 2025-01-26 08:33 | W.PN.NEURO.1 ---
Addendum entered and electronically signed by Bernardino Medrano MD 01/26/25 09:51:
Studies independently reviewed.
I have personally examined the patient. I reviewed and agree with the DATA WAREHOUSE ARCHITECT's Note.
My addenda:
Awake, alert, interactive. No acute distress.
Speech intact.
Follows 2-step requests w/o difficulty. No tremor.
Extra-ocular movements grossly intact.
Facial movements full and symmetric. Hearing intact to normal conversational volume.
Normal UE movements bilaterally. Patient able to lift bilateral lower extremities off the bed with full strength.
Neck: full ROM.
Chest: no dyspnea
Heart: no JVD
Ext: (-) Clubbing, (-) Cyanosis, (-) Edema
IMPRESSIONS/RECOMMENDATIONS:
Abrupt onset of worsening back pain with significant ambulatory dysfunction and autonomic dysfunction. There is evidence by lumbar puncture of a transverse myelitis. Unclear if this is secondary to the patient's known rheumatoid arthritis.
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 Repeat lumbar puncture was unsuccessful
Consider repeat MRI imaging of the thoracic spine with and without contrast if the patient remains unable to ambulate
Continue newly initiated high-dose steroids based on lumbar puncture results for a total of 5 days of methylprednisolone at 1000 mg
Continue rehabilitation evaluations and treatment
D/W patient
All questions answered.
Will continue to follow patient.
Original Note:
Today's Communication / Plan
-
.
Neuro Assessment/Plan
Assessment
IMPRESSIONS/RECOMMENDATIONS:
Abrupt onset of worsening back pain with significant ambulatory dysfunction and autonomic dysfunction. There is evidence by lumbar puncture of a transverse myelitis. Unclear if this is secondary to the patient's known rheumatoid arthritis,
associated with a suggestion of multiple myeloma, or idiopathic
Neuro Imaging:
1. MRI Brain w/ and w/o contrast 11/30/24: No acute intracranial abnormality noted. Normal MR appearance of the brainstem/layla.
2. Cervical Spine MRI 11/30/24: Multilevel degenerative changes of the cervical spine as detailed, worst at C5-6 and C6/7 where disc and uncovertebral/facet disease contribute to moderate spinal canal and mild to severe neural foraminal stenosis at
these levels.
3. EEG 11/29/24: This is an abnormal awake and asleep EEG due to intermittent right frontotemporal slowing indicative of focal cerebral dysfunction nonspecific in terms of etiology.� No epileptiform activity was seen.�
4. MRI Thoracic spine w/o contrast 01/22/25: No MR evidence for discitis or osteomyelitis involving the thoracic spine. Small bilateral pleural effusions. 3 focal areas of increased T2 and STIR signal within the thoracic spinal cord as described, at
the T5, superior T7, and T8/T8-9 levels. Etiology for this focal signal intensity abnormality is uncertain. Main differential considerations of demyelinating lesions, transverse myelitis, and ischemia.
5. MRI Lumbar spine w/o contrast 01/22/25: Moderate to severe changes of degenerative disc disease at L4-5 and L5-S1. Since previous MRI of February 09, 2024, development of fluid signal intensity diffusely involving the disc space at L4-5 and
involving the anterior aspect of the disc space at L5-S1. On recent CT scan, vacuum disc phenomenon at L4-5 is evidence against discitis and osteomyelitis. Also, the lack of significant decreased T1-weighted signal within the endplates at L4-5 and
L5-S1 is also evidence against discitis, as well as relatively stable appearance of the endplates on CT scans dating back to November 2024. See above discussion. Changes of degenerative disc disease, greatest at L4-5 and L5-S1. See above narrative
for detailed findings at each level.
6. CSF 01/24/25: WBC 282, RBC 1000, glucose 53, total protein
7. Repeat LP attempt x3 on 01/25/25 unsuccessful.
Plan
-Continue methylprednisolone 1000mg IV x5 days, today is day 3/5.
-There is some evidence of a monoclonal protein in testing done in November 2024, hematology will follow-up as an outpatient.
-Continue home apixaban for stroke prevention.
-Continue midodrine, abdominal binder, TRACE stockings.
-Goal normotension.
-Check orthostatic vital signs BID.
-PT/OT evaluations.
Subjective/Objective
Subjective Data
Date of Service: January 26, 2025
Patient reports feeling more alert today and her back pain with movement is down to a 4/10.
Objective Data
Vital Signs
Temp Pulse Resp BP Pulse Ox
97.2 F 65 18 120/62 93
01/26/25 07:34 01/26/25 08:11 01/26/25 07:34 01/26/25 08:11 01/26/25 07:34
Lab Results
01/25/25 06:22
01/25/25 06:22
PT 15.8 Sec (11.4-14.6) H 01/24/25 11:15
INR 1.21 01/24/25 11:15
APTT 53.4 Sec (23.4-35.0) H 01/11/25 02:35
Sodium 135 mmol/L (135-145) 01/25/25 06:22
Potassium 4.6 mmol/L (3.5-5.1) 01/25/25 06:22
BUN 25 mg/dl (7-17) H 01/25/25 06:22
Glucose 147 mg/dl (70-99) H 01/25/25 06:22
Calcium 8.4 mg/dl (8.4-10.2) 01/25/25 06:22
Phosphorus 3.3 mg/dl (2.5-4.5) 01/13/25 04:54
Kjl-B-Ibtfqgczcjg Pept 1170 pg/ml 01/16/25 10:44
Vitamin B12 > 1000 pg/ml (239-931) H 01/13/25 04:54
Patient Allergies
celecoxib Allergy (Verified 01/10/25 21:41)
stomach pains
codeine Allergy (Verified 01/10/25 13:09)
nausea/vomiting
Review of Systems
-
History Source: Patient
Neuro: Weakness and Numbness; Negative Dizzy, Headache, Ataxia, Tremors or Speech Problem
Physical Exam
-
General: No Apparent Distress
Eyes: No Ptosis and PERRLA
Respiratory: No Dyspnea
Extremities: Edema +2
Extended Neurological Exam
Mood & Affect: Mood Unremarkable and Affect Unremarkable
Attention Span & Concentration: Awake, Alert and Interactive
Memory: Unremarkable and Able to Recall
Tremor: Hand Tremor Absent and Head Tremor Absent
Involuntary Movement: None
Speech: Quality Unremarkable, Quantity Unremarkable and Rate of Production Unremarkable
Cranial Nerves III, IV, : Extraocular Movement: Extraocular Movement Full in all Directions
Cranial Nerve VII: Facial Symmetry: Normal Facial Symmetry
Cranial Nerve VIII: Hearing: Unremarkable Hearing to Normal Conversational Volume
Muscle Strength, Overall: Full Throughout
Cold Sensation: Reduced Moderately Distally (L>R)
Coordination: Rnqoyd-pedf-eparka Testing Unremarkable
Data Reviewed
-
Labs: Report Reviewed
Medications
-
Active Medications
Generic Name Dose Route Start Last Admin
Trade Name Freq PRN Reason Stop Dose Admin
Acetaminophen 650 mg 01/20/25 20:57 01/25/25 23:52
Acetaminophen 325 Mg Tablet PO 02/17/25 20:56 650 mg
Q4HPRN PRN Administration
mild pain/TOMPKINS/temp>100.5
Amiodarone HCl 200 mg 01/11/25 08:00 01/26/25 08:11
Amiodarone 200 Mg Tablet PO 02/08/25 07:59 200 mg
DAILY CHAO Administration
Apixaban 5 mg 01/22/25 20:00 01/26/25 08:11
Apixaban (Eliquis) 5 Mg Tablet PO 02/19/25 19:59 5 mg
BID CHAO Administration
Calcium/Vitamin D 500 mg 01/10/25 20:00 01/26/25 08:11
Calcium Carbonate 500 Mg/Vitamin D 5 Mcg (200 Units) Tablet PO 02/07/25 19:59 500 mg
BID CHAO Administration
Cyanocobalamin (Vitamin B12) 1,000 mcg 01/11/25 08:00 01/26/25 08:11
Cyanocobalamin (Vitamin B-12) 500 Mcg Tablet PO 02/08/25 07:59 1,000 mcg
DAILY CHAO Administration
Guaifenesin 1,200 mg 01/11/25 22:00 01/26/25 08:12
Guaifenesin 600 Mg Extended Release Tablet PO 02/08/25 21:59 1,200 mg
Q12 CHAO Administration
Hydrocortisone 15 mg 01/20/25 08:00 01/24/25 08:26
Hydrocortisone 10 Mg Tablet PO 02/17/25 07:59 15 mg
On Hold: 01/24/25 17:10 DAILY CHAO Administration
Hydrocortisone 5 mg 01/20/25 16:00 01/24/25 17:17
Hydrocortisone 10 Mg Tablet PO 02/17/25 15:59 Not Given
On Hold: 01/24/25 17:10 DAILY@1600 CHAO
Hydrocortisone Acetate 25 mg 01/11/25 22:00 01/25/25 23:51
Anusol Hc 25 Mg Rectal Suppository RECTAL 02/08/25 21:59 25 mg
HS CHAO Administration
Sodium Chloride 1,000 mls @ 80 mls/hr 01/25/25 08:30 01/25/25 21:52
Nss IV 1,000 mls
.[id number] CHAO Administration
Methylprednisolone Sodium 258 mls @ 258 mls/hr 01/25/25 10:00 01/25/25 10:11
Succinate 1,000 mg/ Sodium IV 01/28/25 10:59 258 mls
Chloride Q24H CHAO Administration
Levothyroxine Sodium 150 mcg 01/20/25 06:45 01/26/25 05:07
Levothyroxine 150 Mcg Tablet PO 02/17/25 05:59 150 mcg
DAILY @ 0600 CHAO Administration
Lorazepam 1 mg 01/24/25 10:30
Lorazepam 1 Mg Tablet PO
ONCE PRN PRN
SEE LABEL COMMENTS
Magnesium Oxide 400 mg 01/11/25 08:00 01/11/25 08:29
Magnesium Oxide 400 Mg Tablet PO 02/08/25 07:59 400 mg
On Hold: 01/11/25 15:16 DAILY CHAO Administration
Miconazole Nitrate 1 applic 01/10/25 23:56
Miconazole Powder Bottle TOPICAL 02/07/25 23:55
BIDPRN PRN
skin folds
Midodrine 10 mg 01/17/25 11:22 01/26/25 08:12
Midodrine 5 Mg Tablet PO 02/07/25 19:59 10 mg
TID@0800,1300,1800 CHAO Administration
Pantoprazole Sodium 40 mg 01/13/25 20:00 01/26/25 08:11
Pantoprazole 40 Mg Delayed Release Tablet PO 02/10/25 19:59 40 mg
BID CHAO Administration
Sodium Chloride 0 flush 01/10/25 20:00
Sodium Chloride 0.9% (Flush) Syringe IV 02/07/25 19:59
PER PROTOCOL CHAO
Thiamine HCl 100 mg 01/11/25 08:00 01/26/25 08:12
Thiamine 100 Mg Tablet PO 02/08/25 07:59 100 mg
DAILY CHAO Administration
Vancomycin HCl 125 mg 01/21/25 12:00 01/26/25 05:07
Vancomycin Oral Solution 50 Mg/Ml In Oral Syringe PO 01/31/25 06:01 125 mg
Q6 CHAO Administration
Home Medications
�Medication �Instructions �Recorded
apixaban 5 mg tablet (Eliquis) 5 mg PO BID #60 tabs 05/18/17
cyanocobalamin (vitamin B-12) 1,000 mcg PO DAILY Supplement 02/19/18
1,000 mcg tablet
magnesium oxide 500 mg PO DAILY ##30 02/21/18
amiodarone 200 mg tablet (Pacerone) 200 mg PO DAILY Arrhythmia 12/23/18
levothyroxine 137 mcg tablet 137 mcg PO DAILY Thyroid 05/03/24
(Levoxyl)
calcium 600 mg (as carbonate)-vit 1 tab PO BID Supplement 11/21/24
D3 20 mcg (800 unit) chewable
tablet (Caltrate plus D)
furosemide 20 mg tablet 20 mg PO DAILY Fluid 11/21/24
Retention/Swelling
hrbsulnvjpxm-vruhikqj-yqwvmb tablet 1 tab PO DAILY Supplement 11/21/24
midodrine 5 mg tablet 5 mg PO TID@0800,1300,1800 #90 tabs 12/01/24
thiamine mononitrate (vit B1) 100 100 mg PO DAILY #100 tabs 12/01/24
mg tablet
[2025-01-26] MEDS: SOLU-MEDROL 258 MG IV (09:58)
[2025-01-26 10:16] LABS: C-Reactive Protein 12.30 mg/L (0.0-10.00)
[2025-01-26 10:48] VITALS: BP 121/63; BP 121/79; BP 129/65; PULSE 61; PULSE 80; O2SAT 94
[2025-01-26 10:57] VITALS: BP 120/63; BP 121/71; BP 129/65; PULSE 80; PULSE 90; PULSE 96
--- NOTE | 2025-01-26 11:06 | W.PN.HOSP.TC ---
Today's Communication/Plan
-
Assessment / Plan
Assessment / Plan
79yo F with PMHX of cholecystectoiny, Parkinsons, hypothyroidism, Afib on eliquis, poor ambulatory capacity, came with chills for few days before admission, found shock and hypothermia. Patient hd Hx of the same with negative w/u, possibly due to
autonomic dysfuction discharged from at the end of Nov 2024. Also found lower GIB 2/2 bleeding hemorrhoids vs interspinal ischemia due to shock that later resolved and anemia was not progressing while continued Eliquis. Hematology evaluated for
monoclonal spike seen on previous admission - outpatient f/u. Tremors improved on Sinemet. Outpatient neurologist advised. Repeat TSH in 2-3 weeks since new Levothyroxine started. Medically stable for d/c to STR as recommended by PT/OT. Recurrent
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
NAD
Scleral Anicteric
MMM
No JVD
CTABL
RRR, S1/S2
Soft, NT, ND, BS+
Warm, Dry
AAOx3
Calm
A/P:
?Transverse myelitis
-noted on mri and lp
-neuro started IV Steroids x5days, day 3/5
-per neuro consider repeat thoracic mri if unable to ambulate
-pt/ot eval
#Shock, unclear mechanism, cannot r/o autonomic dysfunction - neurogenic hypotension vs proctitis
#Hypothermia
#Hypothyroidism
#Pre-syncope 2/2 orthostatic hypotension with blurry vision
#Autonomic dysfunction with symptomatic orthostatic hypotension
Random cortisol low, however ACTH neg for adrenal insufficiency. TSH elevated -increased synthroid, discussing with Endo if reasonable to continue empiric Hydrocortisone (currently on it): recommended to cont Hydrocotisone 15mg AM and 5mg PM.
Synthroid also increased to 150mcg since TSH elevated.
On midodrine for orthostatic hypotension
Zosyn completed as per ID: CXR - no pneumonia, no signs of UTI with absent pyuria, Bcx NGTD
Warming blanket when symptomatic only (chills, shivering)
Cardiology consult: no significant valvular deficiency, arrhythmia. Recommended abd binder and compression stocking up to the thigh when upright - ordered
Planned for LP on last admission, but since improved - deferred by neurologist. See below, plans for LP inpt now. Neurology consult due to possible Parkinsons as per previous eval: recommended Rotigotine 1 mg/24 hours patch, but patient declined and
would like to follow with neurologist as outpatient in [facility]
01/26: Orthostatics were negative, asymptomatic
#Spinal stenosis with worsening lower back pain
MRI thoracic spine shows no discitis or osteomyelitis. However, 3 focal areas of increased T2 and STIR signal within the thoracic spinal cord as described, at the T5, superior T7, and T8/T8-9 levels. Etiology for this focal signal intensity
abnormality is uncertain. Main differential considerations of demyelinating lesions, transverse myelitis, and ischemia.
MRI L-spine IMPRESSION: Moderate to severe changes of degenerative disc disease at L4-5 and L5-S1. Since previous MRI of February 09, 2024, development of fluid signal intensity diffusely involving the disc space at L4-5 and involving the anterior
aspect of the disc space at L5-S1. On recent CT scan, vacuum disc phenomenon at L4-5 is evidence against discitis and osteomyelitis. Also, the lack of significant decreased T1-weighted signal within the endplates at L4-5 and L5-S1 is also evidence
against discitis, as well as relatively stable appearance of the endplates on CT scans dating back to November 2024. See above discussion.
LP ocmpleted, unable to to repeat not enough fluid
Started on IV Steroids by neuro x5days
#Abdominal distension
resolved on Lasix
patient has BM, no concern for obstruction
Can be volume overload with hydration due to holding Lasix
#Small R kidney lesions, probably cyst
#L adrenal lesion: old hemorrhage or cyst
Repeat outpatient CT in 6mo
#Hx of positive RF and antiCCP Ab
might benefit from outpatient mandrel cleaner
#Macrocytic anemia
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
b12 and folate WNL
Hematology consult: recent SPEP, Immunoglobulins, FLC, haptoglobin
#SNOW on CKD stage 3b
resolved
Cr baseline 1.2-1.4
Hydrate
maintain BP
follow Cr
#Parkinsonism with hallucination and dysautonomia
01/26 orthostatics were neagtive and asymptoatimc
As per neurology assessment 05/05/24
Levodopa attempted but developed worsening of orthostasis
Liberalize fluid intake
avoid BP meds
Waste-high stocking, abdominal binder
Midodrine
Hydrocortisone held as on IV steroids
Off pressors
Recent MRI brain in Nov 2024 - no acute findings
#Paroxysmal Afib
well controlled
cont Amiodarone
Eliquis: decrease dose as CR>1.5 and age =79yo
#Lower GIB 2/2 hemorrhoids
GI consult: cont Eliquis
Follow CBC
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
carrier
With multitude of comorbidities - reasonable to complete 10 days Vanco especially since now with loose stool
DVT ppx Eliquis
Full code
For SNF when symptomatic orthostasis has improved
Anticipated Discharge: > 48 hours
Subjective/Interval History
-
Date of Service: January 26, 2025
seen and examined. no new complaints. no acute overnight events
was hypothermic yesterday, but asymptomatic
sitting in bedside chair, no dizziness
orthostatics from this AM reviewed which were negative
Objective Data
-
Vital Signs:
Vital Signs
Temp Pulse Resp BP Pulse Ox
97.2 F 65 18 120/62 93
01/26/25 07:34 01/26/25 08:11 01/26/25 07:34 01/26/25 08:11 01/26/25 07:34
I&O
01/25/25 01/26/25 01/27/25
06:59 06:59 06:59
Intake Total 840 / 840 660 / 660
Balance 840 / 840 660 / 660
[2025-01-26] MEDS: NSS 1000 IV (12:47)
--- NOTE | 2025-01-26 13:16 | CM ---
patient seen at bedside
spoke with Darleen at [facility] & updated
IV steroids
Will need ins auth
PLAN: [facility], pending bed availability when stable, will need insurance auth
[2025-01-26 15:32] VITALS: BP 144/65
[2025-01-26] MEDS: ANUSOL HC RECTAL (23:05)
[2025-01-26 23:10] VITALS: BP 154/79
[2025-01-27] MEDS: FIRVANQ 125 MG PO ×4 (00:12→17:07)
[2025-01-27] MEDS: TYLENOL 650 MG PO (00:12)
[2025-01-27] MEDS: SYNTHROID 150 MCG PO (05:36)
[2025-01-27 08:27] VITALS: BP 133/64
[2025-01-27] MEDS: MUCINEX 1200 MG PO ×2 (09:16→20:46)
[2025-01-27] MEDS: VITAMIN B-12 1000 MCG PO (09:16)
[2025-01-27] MEDS: VITAMIN B1 100 MG PO (09:16)
[2025-01-27] MEDS: PACERONE 200 MG PO (09:17)
[2025-01-27] MEDS: ELIQUIS 5 MG PO ×2 (09:17→20:46)
[2025-01-27] MEDS: OSCAL 500 + D 500 MG PO ×2 (09:17→20:46)
[2025-01-27] MEDS: PROTONIX 40 MG PO ×2 (09:18→20:46)
[2025-01-27] MEDS: SOLU-MEDROL 258 MG IV (11:24)
--- NOTE | 2025-01-27 12:03 | W.PN.HOSP.TC ---
Today's Communication/Plan
-
Assessment / Plan
Assessment / Plan
79yo F with PMHX of cholecystectoiny, Parkinsons, hypothyroidism, Afib on eliquis, poor ambulatory capacity, came with chills for few days before admission, found shock and hypothermia. Patient hd Hx of the same with negative w/u, possibly due to
autonomic dysfuction discharged from at the end of Nov 2024. Also found lower GIB 2/2 bleeding hemorrhoids vs interspinal ischemia due to shock that later resolved and anemia was not progressing while continued Eliquis. Hematology evaluated for
monoclonal spike seen on previous admission - outpatient f/u. Tremors improved on Sinemet. Outpatient neurologist advised. Repeat TSH in 2-3 weeks since new Levothyroxine started. Medically stable for d/c to STR as recommended by PT/OT. Recurrent
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
NAD
Scleral Anicteric
MMM
No JVD
CTABL
RRR, S1/S2
Soft, NT, ND, BS+
Warm, Dry
AAOx3
Calm
A/P:
?Transverse myelitis
-noted on mri and lp
-neuro started IV Steroids x5days, day 4/5
-per neuro consider repeat thoracic mri if unable to ambulate
-pt/ot eval
#Shock, unclear mechanism, cannot r/o autonomic dysfunction - neurogenic hypotension vs proctitis
#Hypothermia
#Hypothyroidism
#Pre-syncope 2/2 orthostatic hypotension with blurry vision
#Autonomic dysfunction with symptomatic orthostatic hypotension
Random cortisol low, however ACTH neg for adrenal insufficiency. TSH elevated -increased synthroid, discussing with Endo if reasonable to continue empiric Hydrocortisone (currently on it): recommended to cont Hydrocotisone 15mg AM and 5mg PM.
Synthroid also increased to 150mcg since TSH elevated.
On midodrine for orthostatic hypotension
Zosyn completed as per ID: CXR - no pneumonia, no signs of UTI with absent pyuria, Bcx NGTD
Warming blanket when symptomatic only (chills, shivering)
Cardiology consult: no significant valvular deficiency, arrhythmia. Recommended abd binder and compression stocking up to the thigh when upright - ordered
Planned for LP on last admission, but since improved - deferred by neurologist. See below, plans for LP inpt now. Neurology consult due to possible Parkinsons as per previous eval: recommended Rotigotine 1 mg/24 hours patch, but patient declined and
would like to follow with neurologist as outpatient in [facility]
01/26: Orthostatics were negative, asymptomatic
#Spinal stenosis with worsening lower back pain
MRI thoracic spine shows no discitis or osteomyelitis. However, 3 focal areas of increased T2 and STIR signal within the thoracic spinal cord as described, at the T5, superior T7, and T8/T8-9 levels. Etiology for this focal signal intensity
abnormality is uncertain. Main differential considerations of demyelinating lesions, transverse myelitis, and ischemia.
MRI L-spine IMPRESSION: Moderate to severe changes of degenerative disc disease at L4-5 and L5-S1. Since previous MRI of February 09, 2024, development of fluid signal intensity diffusely involving the disc space at L4-5 and involving the anterior
aspect of the disc space at L5-S1. On recent CT scan, vacuum disc phenomenon at L4-5 is evidence against discitis and osteomyelitis. Also, the lack of significant decreased T1-weighted signal within the endplates at L4-5 and L5-S1 is also evidence
against discitis, as well as relatively stable appearance of the endplates on CT scans dating back to November 2024. See above discussion.
LP ocmpleted, unable to to repeat not enough fluid
Started on IV Steroids by neuro x5days
#Abdominal distension
resolved on Lasix
patient has BM, no concern for obstruction
Can be volume overload with hydration due to holding Lasix
#Small R kidney lesions, probably cyst
#L adrenal lesion: old hemorrhage or cyst
Repeat outpatient CT in 6mo
#Hx of positive RF and antiCCP Ab
might benefit from outpatient tricot knitter
#Macrocytic anemia
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
b12 and folate WNL
Hematology consult: recent SPEP, Immunoglobulins, FLC, haptoglobin
#SNOW on CKD stage 3b
resolved
Cr baseline 1.2-1.4
Hydrate
maintain BP
follow Cr
#Parkinsonism with hallucination and dysautonomia
01/26 orthostatics were neagtive and asymptoatimc
As per neurology assessment 05/05/24
Levodopa attempted but developed worsening of orthostasis
Liberalize fluid intake
avoid BP meds
Waste-high stocking, abdominal binder
Midodrine
Hydrocortisone held as on IV steroids
Off pressors
Recent MRI brain in Nov 2024 - no acute findings
#Paroxysmal Afib
well controlled
cont Amiodarone
Eliquis: decrease dose as CR>1.5 and age =79yo
#Lower GIB 2/2 hemorrhoids
GI consult: cont Eliquis
Follow CBC
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
carrier
With multitude of comorbidities - reasonable to complete 10 days Vanco especially since now with loose stool
DVT ppx Eliquis
Full code
For SNF when symptomatic orthostasis has improved
Anticipated Discharge: 24 - 48 hours
Subjective/Interval History
-
Date of Service: January 27, 2025
Seen and examined. No new complaints. No acute overnight events.
Objective Data
-
Vital Signs:
Vital Signs
Temp Pulse Resp BP Pulse Ox
97.1 F 61 19 133/64 95
01/27/25 10:20 01/27/25 09:18 01/27/25 08:27 01/27/25 09:18 01/27/25 08:27
I&O
01/26/25 01/27/25 01/28/25
06:59 06:59 06:59
Intake Total 660 / 660 250 / 250
Balance 660 / 660 250 / 250
[2025-01-27 16:01] VITALS: BP 141/74
[2025-01-27] MEDS: ANUSOL HC RECTAL (21:04)
[2025-01-27 23:55] VITALS: BP 159/90
[2025-01-28] MEDS: FIRVANQ 125 MG PO ×5 (02:05→23:03)
[2025-01-28] MEDS: SYNTHROID 150 MCG PO (05:37)
[2025-01-28 08:00] VITALS: BP 155/74
[2025-01-28] MEDS: VITAMIN B1 100 MG PO (08:17)
[2025-01-28] MEDS: MUCINEX 1200 MG PO ×2 (08:17→20:08)
[2025-01-28] MEDS: ELIQUIS 5 MG PO ×2 (08:17→20:08)
[2025-01-28] MEDS: PROTONIX 40 MG PO ×2 (08:17→20:08)
[2025-01-28] MEDS: VITAMIN B-12 1000 MCG PO (08:17)
[2025-01-28] MEDS: PACERONE 200 MG PO (08:18)
[2025-01-28] MEDS: OSCAL 500 + D 500 MG PO ×2 (08:18→20:08)
--- NOTE | 2025-01-28 08:20 | W.PN.HOSP.TC ---
Today's Communication/Plan
-
Assessment / Plan
Assessment / Plan
79yo F with PMHX of cholecystectoiny, Parkinsons, hypothyroidism, Afib on eliquis, poor ambulatory capacity, came with chills for few days before admission, found shock and hypothermia. Patient hd Hx of the same with negative w/u, possibly due to
autonomic dysfuction discharged from at the end of Nov 2024. Also found lower GIB 2/2 bleeding hemorrhoids vs interspinal ischemia due to shock that later resolved and anemia was not progressing while continued Eliquis. Hematology evaluated for
monoclonal spike seen on previous admission - outpatient f/u. Tremors improved on Sinemet. Outpatient neurologist advised. Repeat TSH in 2-3 weeks since new Levothyroxine started. Medically stable for d/c to STR as recommended by PT/OT. Recurrent
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
NAD
Scleral Anicteric
MMM
No JVD
CTABL
RRR, S1/S2
Soft, NT, ND, BS+
Warm, Dry
AAOx3
Calm
A/P:
#Shock, unclear mechanism, cannot r/o autonomic dysfunction - neurogenic hypotension vs proctitis
#Hypothermia
#Hypothyroidism
#Pre-syncope 2/2 orthostatic hypotension with blurry vision
#Autonomic dysfunction with symptomatic orthostatic hypotension
Random cortisol low, however ACTH neg for adrenal insufficiency. TSH elevated -increased synthroid, discussing with Endo if reasonable to continue empiric Hydrocortisone (currently on it): recommended to cont Hydrocotisone 15mg AM and 5mg PM.
Synthroid also increased to 150mcg since TSH elevated.
On midodrine for orthostatic hypotension
Zosyn completed as per ID: CXR - no pneumonia, no signs of UTI with absent pyuria, Bcx NGTD
Warming blanket when symptomatic only (chills, shivering)
Cardiology consult: no significant valvular deficiency, arrhythmia. Recommended abd binder and compression stocking up to the thigh when upright - ordered
Planned for LP on last admission, but since improved - deferred by neurologist. See below, plans for LP inpt now. Neurology consult due to possible Parkinsons as per previous eval: recommended Rotigotine 1 mg/24 hours patch, but patient declined and
would like to follow with neurologist as outpatient in [facility]
#Spinal stenosis with worsening lower back pain
MRI thoracic spine shows no discitis or osteomyelitis. However, 3 focal areas of increased T2 and STIR signal within the thoracic spinal cord as described, at the T5, superior T7, and T8/T8-9 levels. Etiology for this focal signal intensity
abnormality is uncertain. Main differential considerations of demyelinating lesions, transverse myelitis, and ischemia.
MRI L-spine IMPRESSION: Moderate to severe changes of degenerative disc disease at L4-5 and L5-S1. Since previous MRI of February 09, 2024, development of fluid signal intensity diffusely involving the disc space at L4-5 and involving the anterior
aspect of the disc space at L5-S1. On recent CT scan, vacuum disc phenomenon at L4-5 is evidence against discitis and osteomyelitis. Also, the lack of significant decreased T1-weighted signal within the endplates at L4-5 and L5-S1 is also evidence
against discitis, as well as relatively stable appearance of the endplates on CT scans dating back to November 2024. See above discussion.
LP ocmpleted, unable to to repeat not enough fluid
Started on IV Steroids by neuro x 5/5days
#Abdominal distension
resolved on Lasix
patient has BM, no concern for obstruction
Can be volume overload with hydration due to holding Lasix
#Small R kidney lesions, probably cyst
#L adrenal lesion: old hemorrhage or cyst
Repeat outpatient CT in 6mo
#Hx of positive RF and antiCCP Ab
might benefit from outpatient pocket setter lockstitch
#Macrocyticg anemia
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
b12 and folate WNL
Hematology consult: rgecent SPEP, Immunoglobulins, FLC, haptoglobin
#SNOW on CKD stage 3b
resolved
Cr baseline 1.2-1.4
Hydrate
maintain BP
follow Cr
#Parkinsonism with hallucination and dysautonomia
01/26 orthostatics were neagtive and asymptoatimc
As per neurology assessment 05/05/24
Levodopa attempted but developed worsening of orthostasis
Liberalize fluid intake
avoid BP meds
Waste-high stocking, abdominal binder
Midodrine
Hydrocortisone continued
Off pressors
Recent MRI brain in Nov 2024 - no acute findings
#Paroxysmal Afib
well controlled
cont Amiodarone
Eliquis: decrease dose as CR>1.5 and age =79yo
#Lower GIB 2/2 hemorrhoids
GI consult: cont Eliquis
Follow CBC
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
carrier
With multitude of comorbidities - reasonable to complete 10 days Vanco especially since now with loose stool
DVT ppx Eliquis
Full code
SNF, once 24hours normothermic.
Anticipated Discharge: Within 24 hours
Subjective/Interval History
-
Date of Service: January 28, 2025
seen and examined. no new complaints. no acute ovneirght events
Objective Data
-
Vital Signs:
Vital Signs
Temp Pulse Resp BP Pulse Ox
97.5 F 65 19 159/90 95
01/27/25 23:55 01/27/25 23:55 01/27/25 23:55 01/27/25 23:55 01/27/25 23:55
I&O
01/27/25 01/28/25 01/29/25
06:59 06:59 06:59
Intake Total 250 / 250 1260 / 1260
Balance 250 / 250 1260 / 1260
[2025-01-28] MEDS: SOLU-MEDROL 258 MG IV (11:02)
[2025-01-28 15:15] VITALS: BP 173/80
--- NOTE | 2025-01-28 18:22 | W.PN.NEURO.1 ---
Today's Communication / Plan
-
IVMP x1 additional day, oral steroid taper, serum testing, PT/OT/PMR
Neuro Assessment/Plan
Assessment
Pilar Rojo is a 79 F with PMH AFIB (on apixiban), ventricular tachycardia s/p ICD, rheumatoid arthritis, recent presentation for hypothermia and refractory hypotension with negative infectious workup, found to have subacute progressive back pain,
ambulatory dysfunction, and acute encephalopathy. MRI brain demonstrating periventricular demyelinating appearing lesions and now thoracic spine with 3 short-segment areas of T2/STIR hyperintensity. CSF limited due to both sampling and blood
contamination, but broadly demonstrates lymphocytic pleiocytosis and elevated protein. Neurological examination with distal sensory loss, however relatively preserved strength and no cranial nerve deficits.
Differential remains broad however given concurrent brain and thoracic lesions (dissemination in space), with possible prior clinical events several months prior (dissemination in time), she meets potential criteria for multiple sclerosis vs
clinically isolated syndrome. CSF evidence of oligoclonal bands would make a definitive diagnosis, however unfortunately there was insufficent CSF despite multiple attempts at CSF sampling. Evidence of lymphocytic pleocytosis on CSF partially argues
against this diagnosis, although was limited by traumatic LP. Differential also includes transverse myelitis (if considering brain lesions to be vascular in etiology, rather than demyelinating). Etiologies of transverse myelitis includes viral,
autoimmune, inflammatory, or nutritional causes, which could be evaluated by serum studies as suggested below. Lower on differential is spinal cord ischemia, although notably had recent admission for profound hypotension.
Most etiologies above are treated with high dose methylprednisolone x5 days, which she will complete by 01/29. Agree with placement in acute rehab for intensive physical therapy.
Plan
- continue methylprednisolone 1000 mg for one additional dose 1000mg IV (07/10 on 01/29)
- after completion of IVMP, start oral prednisone taper
- 60 mg daily for 7 days
- 50 mg daily for 7 days
- 40 mg daily for 7 days
- 30 mg daily for 7 days
- 20 mg daily for 7 days
- 10 mg daily for 7 days, until neurology followup
- please prescribe famotidine, calcium and vitamin D prophylaxis for chronic steroids
- obtain the following serum tests prior to discharge: vitamin B12, methylmalonic acid, vitamin E, copper, HIV, RPR, lyme, aquaporin-4 IgG, anti-myelin oligodendrocyte, SSA/B
- will need to schedule outpatient followup with neurology, consideration of disease modifying therapy, consider referral to [facility] and inflammatory disorder [facility]
-hematology followup for monoclonal protein in testing done in November 2024 outpatient
-continue home apixaban for stroke prevention.
-Continue midodrine, abdominal binder, TRACE stockings.
-PT/OT/PMR
Subjective/Objective
Subjective Data
Date of Service: January 28, 2025
- On day 4/5 of IV methylpredinosolone 1g
- States overall minimal improvement, although has only tried standing minimal times with PT/OT
- Continues to report lower extremity numbness and imbalancce, however denies weakness per se. Denies urinary, bowel, or visual symptoms.
Objective Data
Vital Signs
Temp Pulse Resp BP Pulse Ox
36.4 C 71 20 162/91 94
01/28/25 08:00 01/28/25 17:45 01/28/25 15:15 01/28/25 17:45 01/28/25 15:15
Lab Results
01/25/25 06:22
01/25/25 06:22
CSF 01/24/25: WBC 282 (92% lymph), RBC 1000, glucose 53, total protein 146
Repeat LP attempt x3 on 01/25/25 unsuccessful.
IgG, IgA, IgM wnl (11/28/24)
SPEP with monoclonal IgG band in the gamma region, elevated K>L 1.95
RF <10, LYNDSAY neg
CRP 12.30
UA mod bacteria 3-5 WBCs
PT 15.8 Sec (11.4-14.6) H 01/24/25 11:15
INR 1.21 01/24/25 11:15
APTT 53.4 Sec (23.4-35.0) H 01/11/25 02:35
Sodium 135 mmol/L (135-145) 01/25/25 06:22
Potassium 4.6 mmol/L (3.5-5.1) 01/25/25 06:22
BUN 25 mg/dl (7-17) H 01/25/25 06:22
Glucose 147 mg/dl (70-99) H 01/25/25 06:22
Calcium 8.4 mg/dl (8.4-10.2) 01/25/25 06:22
Phosphorus 3.3 mg/dl (2.5-4.5) 01/13/25 04:54
Xqs-X-Ptmlirgmeqi Pept 1170 pg/ml 01/16/25 10:44
Vitamin B12 > 1000 pg/ml (239-931) H 01/13/25 04:54
Patient Allergies
celecoxib Allergy (Verified 01/10/25 21:41)
stomach pains
codeine Allergy (Verified 01/10/25 13:09)
nausea/vomiting
MRI brain with/ without contrast (11/30/24) mutlifocal non contrast-enhancing, periventricular and subcortical T1 hypointense, T2/FLAIR hyperintense white matter lesions
MRI Cervical spine with and without contrast (11/30/24) Multilevel degenerative disease (C5-C6, C6-C7), modreat spinal canal stenosis and mild to severe neural foraminal stenosis, however no enhancing lesions
MRI Thoracic spine without contrast (01/22/25) STIR hyperintense lesions at T5, T7, T8/T8-9 levels.
MRI Lumar spine without contrast (01/22/25) moderate to severe degnerative disc disease at L4-L5 and L5-S1
Review of Systems
-
All other systems: Reviewed and negative
Physical Exam
-
General: Obese
Eyes: PERRLA
HEENT: Normocephalic and Atraumatic
Skin: Ulcers (Peripheral venous status ulceration )
Extended Neurological Exam
Attention Span & Concentration: Awake, Alert and No Difficulty with 2 Step Request
Memory: Unremarkable
Tremor: Hand Tremor Absent
Involuntary Movement: None
Speech: Quality Unremarkable and Quantity Unremarkable
Cranial Nerve II: Left Eye: Pupillary Reactivity Unremarkable and Visual [place] Intact
Cranial Nerve II: Right Eye: Pupillary Reactivity Unremarkable and Visual [place] Intact
Cranial Nerves III, IV, : Extraocular Movement: Extraocular Movement Full in all Directions
Cranial Nerve V: Facial Sensation: Facial Sensation Unremarkable to Cold
Cranial Nerve VII: Facial Symmetry: Normal Facial Symmetry
Cranial Nerve VIII: Hearing: Unremarkable Hearing to Normal Conversational Volume
Cranial Nerves IX, X: Palate Movement: Palate Elevation Symmetric
Cranial Nerve XI: Shoulder Shrug: Unremarkable
Cranial Nerve XII: Tongue Protusion: Midline
Muscle Strength, Overall: Full Throughout and Other
Pronator Drift: No Drift in Upper Extremities and No Drift in Lower Extremities
Deep Tendon Reflexes: Other (2+ throughout apart from absent patellar, no Scherer's or clonus )
Cold Sensation: Other (Reduced below L1 relative to proximal, variable decrease in right vs left leg )
Coordination: Dbtprr-ddea-rqnfdu Testing Unremarkable
Babinski Sign: Absent Bilaterally
Gait & Station: Unable to Assess
Data Reviewed
-
MRI Head: Image Reviewed (MRI brain with/ without contrast (11/30/24) multifocal non contrast-enhancing, periventricular and subcortical T1 hypointense, T2/FLAIR hyperintense white matter lesions)
MRI Cervical Spine: Image Reviewed (Multilevel degenerative disease (C5-C6, C6-C7), modreat spinal canal stenosis and mild to severe neural foraminal stenosis, however no enhancing lesions )
MRI Thoracic Spine: Image Reviewed (MRI Thoracic spine without contrast (01/22/25) STIR hyperintense lesions at T5, T7, T8/T8-9 levels.)
MRI Lumbar Spine: Image Reviewed (MRI L spine moderate to severe degenerative disc disease at L4-L5 and L5-S1 )
Labs: Report Reviewed
[2025-01-28] MEDS: ANUSOL HC RECTAL (21:53)
[2025-01-28 23:00] VITALS: BP 161/84
[2025-01-29] MEDS: SYNTHROID 150 MCG PO (06:06)
[2025-01-29] MEDS: FIRVANQ 125 MG PO ×4 (06:06→23:06)
[2025-01-29 07:19] VITALS: BP 156/88
--- NOTE | 2025-01-29 08:20 | W.PN.HOSP.TC ---
Today's Communication/Plan
-
steroids as per Neurology
check Chest X-ray, new onset wheezing
Scheduled Duonebs
Nystatin Swish suspected oral thrush
PT/OT
Discharge planning Acute rehab
Assessment / Plan
Assessment / Plan
Physical Exam
Genera: NAD apears relatively comfortable at this time
HEENT: Scleral Anicteric, facial flushing, MMM,No JVD, cottage cheese appearance on tongue, facial flushing
Pulm: Diffuse expiratory wheeze
Cardio: RRR, S1/S2
GI: Soft, NT, ND, BS+
Ext: Warm, Dry
Neuro: AAOx3 conversant coherent
Psych: Calm
79F with PMHX of cholecystectomy, Parkinsons, hypothyroidism, Afib Eliquis, poor ambulatory capacity, came with chills for few days before admission, found shock and hypothermia. Patient had Hx of the same with negative w/u, possibly due to
autonomic dysfunction discharged from at the end of Nov 2024. Also found lower GIB 2/2 bleeding hemorrhoids vs interspinal ischemia due to shock that later resolved and anemia was not progressing while continued Eliquis. Hematology evaluated for
monoclonal spike seen on previous admission - outpatient f/u. Tremors improved on Sinemet. Outpatient neurologist advised. Repeat TSH in 2-3 weeks since new Levothyroxine started. Medically stable for d/c to STR as recommended by PT/OT. Recurrent
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
#Shock, unclear mechanism, cannot r/o autonomic dysfunction - neurogenic hypotension vs proctitis
#Hypothermia
#Hypothyroidism
#Pre-syncope 2/2 orthostatic hypotension with blurry vision
#Autonomic dysfunction with symptomatic orthostatic hypotension
Random cortisol low, however ACTH neg for adrenal insufficiency. TSH elevated:
Started on Hydrocotisone 15mg AM and 5mg PM since on hold d/t high dose steroid tx's as below. Synthroid increased to 150mcg since TSH elevated, cont.
cont midodrine for orthostatic hypotension
Zosyn completed as per ID: CXR - no pneumonia, no signs of UTI with absent pyuria, Bcx NGTD
Warming blanket when symptomatic only (chills, shivering)
Cardiology consult appreciated no significant valvular deficiency, arrhythmia. Recommended abd binder and compression stocking up to the thigh when upright - ordered
#Spinal stenosis with worsening lower back pain
MRI thoracic spine shows no discitis or osteomyelitis. However, 3 focal areas of increased T2 and STIR signal within the thoracic spinal cord as described, at the T5, superior T7, and T8/T8-9 levels. Etiology for this focal signal intensity
abnormality is uncertain. Main differential considerations of demyelinating lesions, transverse myelitis, and ischemia.
MRI L-spine IMPRESSION: Moderate to severe changes of degenerative disc disease at L4-5 and L5-S1. Since previous MRI of February 09, 2024, development of fluid signal intensity diffusely involving the disc space at L4-5 and involving the anterior
aspect of the disc space at L5-S1. On recent CT scan, vacuum disc phenomenon at L4-5 is evidence against discitis and osteomyelitis. Also, the lack of significant decreased T1-weighted signal within the endplates at L4-5 and L5-S1 is also evidence
against discitis, as well as relatively stable appearance of the endplates on CT scans dating back to November 2024. See above discussion.
LP completed, unable to to repeat not enough fluid
Started on high dose IV Steroids by neuro x 5/5days, long taper planned
PT/OT appreciated acute rehab.
#Abdominal distension
resolved on Lasix
patient has BM, no concern for obstruction
Can be volume overload with hydration due to holding Lasix
#Small R kidney lesions, probably cyst
#L adrenal lesion: old hemorrhage or cyst
Repeat outpatient CT in 6mo
#Hx of positive RF and antiCCP Ab
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
#Macrocyticg anemia
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
b12 and folate WNL
Hematology consult: rgecent SPEP, Immunoglobulins, FLC, haptoglobin
#SNOW on CKD stage 3b
resolved
Cr baseline 1.2-1.4
Hydrate
maintain BP
follow Cr
#Parkinsonism with hallucination and dysautonomia
01/26 orthostatics were neagtive and asymptoatimc
As per neurology assessment 05/05/24
Levodopa attempted but developed worsening of orthostasis
Liberalize fluid intake
avoid BP meds
Waste-high stocking, abdominal binder
Steroids as above
Recent MRI brain in Nov 2024 - no acute findings
#Paroxysmal Afib
well controlled
cont Amiodarone
Eliquis 5 mg BID
#Lower GIB 2/2 hemorrhoids
GI consult: cont Eliquis
monitor H&H
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
carrier
With multitude of comorbidities - reasonable to complete 10 days Vanco especially with loose stools
#01/30 Wheezing
-CXR
-scheduled Duonebs
#01/30 Suspect oral thrush
Nystatin swish started
DVT ppx Eliquis
Full code
I spent a total of 45 minutes with the patient or on the floor. More than 50% of this time involved counseling and coordination of care.
Anticipated Discharge: 24 - 48 hours
Subjective/Interval History
-
Date of Service: January 29, 2025
wheezing, denies sob coughing fever.
Objective Data
-
Vital Signs:
Vital Signs
Temp Pulse Resp BP Pulse Ox
97.8 F 62 18 156/88 96
01/29/25 07:19 01/29/25 07:19 01/29/25 07:19 01/29/25 07:19 01/29/25 07:19
I&O
01/28/25 01/29/25 01/30/25
06:59 06:59 06:59
Intake Total 1260 / 1260 1200 / 1200
Balance 1260 / 1260 1200 / 1200
[2025-01-29 08:29] LABS: Glucose - Point of Care 251 mg/dl (70-99)
[2025-01-29] MEDS: ELIQUIS 5 MG PO ×2 (08:52→20:10)
[2025-01-29] MEDS: MUCINEX 1200 MG PO ×2 (08:52→20:10)
[2025-01-29] MEDS: PACERONE 200 MG PO (08:52)
[2025-01-29] MEDS: VITAMIN B-12 1000 MCG PO (08:52)
[2025-01-29] MEDS: PROTONIX 40 MG PO ×2 (08:52→20:11)
[2025-01-29] MEDS: VITAMIN B1 100 MG PO (08:52)
[2025-01-29] MEDS: OSCAL 500 + D 500 MG PO ×2 (08:53→20:10)
[2025-01-29 09:55] LABS: Vitamin B12 > 1000 pg/ml (239-931)
[2025-01-29] MEDS: SOLU-MEDROL 258 MG IV (10:40)
[2025-01-29 11:18] VITALS: BP 154/75; PULSE 61; O2SAT 96
[2025-01-29 11:24] VITALS: BP 154/75; PULSE 56; O2SAT 94
--- NOTE | 2025-01-29 11:30 | CM ---
Addendum entered by Ritu Varma 01/29/25 11:35:
therapy now recommending Acute rehab. CM will review with patient and reach out to [facility] pending physician assessment.
Original Note:
Patient seen at bedside on . Patient physician indicate possible transition on wed. CM will call to [facility] to confirm bed availability and will need updated therapy notes for insurance auth. CM reached out the therapy with update request. CM
will continue to follow for discharge planning needs.
Plan; SNF; [facility] pending bed availability, updated therapy notes needed for auth
[2025-01-29 11:41] LABS: Glucose - Point of Care 205 mg/dl (70-99)
--- NOTE | 2025-01-29 11:44 | CM ---
Addendum entered by Ritu Varma 01/29/25 15:25:
clinicals sent to [id number] fax [phone]. awaiting response.
Addendum entered by Ritu Varma 01/29/25 15:08:
confirmed bed and will send referral for [facility].
Original Note:
Patient seen at bedside on . Patient physician indicate possible transition on wed. CM will call to [facility] to confirm bed availability and will need updated therapy notes for insurance auth. CM reached out the therapy with update request. CM
will continue to follow for discharge planning needs.
Plan; SNF; [facility] pending bed availability, updated therapy notes needed for auth
[2025-01-29 14:46] VITALS: BP 167/85
[2025-01-29 16:07] LABS: Glucose - Point of Care 226 mg/dl (70-99)
[2025-01-29] MEDS: MYCOSTATIN ORAL SUSPENSION 5 ML PO ×2 (17:16→22:45)
[2025-01-29] MEDS: NOVOLOG FLEXPEN-LOW RESISTANCE 2 UNITS SC (18:12)
[2025-01-29 19:22] LABS: Hematocrit 32.5 % (37.0-47.0); Hemoglobin 10.2 g/dL (12.0-16.0); Mean Corp Hgb Conc. 31.4 g/dL (33.0-37.0); Mean Corpuscular Volume 112.8 fL (81.0-99.0); Platelet Count 224 10^3/uL (130-400); Red Cell Dist. Width 16.8 % (11.5-14.5)
[2025-01-29 19:39] LABS: Blood Urea Nitrogen 33 mg/dl (7-17); Calcium 8.3 mg/dl (8.4-10.2); Carbon Dioxide 30 mmol/L (22-30); Chloride 106 mmol/L (98-107); Estimated Creatinine Clearance 54 ml/min; Glucose 240 mg/dl (70-99); Magnesium 2.3 mg/dl (1.6-2.3); Potassium 4.4 mmol/L (3.5-5.1); Sodium 136 mmol/L (135-145); eGFR 56.95
[2025-01-29] MEDS: DUONEB 3 ML INH (20:30)
[2025-01-29 20:38] LABS: Glucose - Point of Care 253 mg/dl (70-99)
[2025-01-29] MEDS: ANUSOL HC RECTAL (21:12)
[2025-01-29 23:00] VITALS: BP 151/80
[2025-01-30] MEDS: SYNTHROID 150 MCG PO (05:48)
[2025-01-30] MEDS: FIRVANQ 125 MG PO ×3 (05:48→18:11)
[2025-01-30 06:49] LABS: Hematocrit 31.1 % (37.0-47.0); Hemoglobin 10.1 g/dL (12.0-16.0); Mean Corp Hgb Conc. 32.5 g/dL (33.0-37.0); Mean Corpuscular Volume 109.5 fL (81.0-99.0); Platelet Count 198 10^3/uL (130-400); Red Cell Dist. Width 16.2 % (11.5-14.5)
[2025-01-30 07:04] LABS: Blood Urea Nitrogen 30 mg/dl (7-17); Calcium 8.6 mg/dl (8.4-10.2); Carbon Dioxide 32 mmol/L (22-30); Chloride 106 mmol/L (98-107); Estimated Creatinine Clearance 54 ml/min; Glucose 187 mg/dl (70-99); Magnesium 2.3 mg/dl (1.6-2.3); Potassium 4.3 mmol/L (3.5-5.1); Sodium 138 mmol/L (135-145); eGFR 56.95
[2025-01-30 07:10] LABS: Glucose - Point of Care 138 mg/dl (70-99)
[2025-01-30] MEDS: NOVOLOG FLEXPEN-LOW RESISTANCE SC (07:11)
[2025-01-30 07:23] VITALS: BP 143/72
[2025-01-30] MEDS: DUONEB 3 ML INH ×3 (07:23→15:21)
--- NOTE | 2025-01-30 07:42 | W.PN.HOSP.TC ---
Today's Communication/Plan
-
check follow up ECHO
duoneb switched to prn
Long Steroid taper as per Neuro
PMR eval
discharge planning SNF vs Acute rehab
Assessment / Plan
Assessment / Plan
Physical Exam
Genera: NAD appears relatively comfortable at this time. Obese
HEENT: Scleral Anicteric, facial flushing, MMM,No JVD, cottage cheese appearance on tongue
Pulm: clear to auscultation b/l
Cardio: RRR, S1/S2
GI: Soft, NT, ND, BS+
Ext: Warm, Dry
Neuro: AAOx3 conversant coherent
Psych: Calm
79F with PMHX of cholecystectomy, Parkinsons, hypothyroidism, Afib Eliquis, poor ambulatory capacity, came with chills for few days before admission, found shock and hypothermia. Patient had Hx of the same with negative w/u, possibly due to
autonomic dysfunction discharged from at the end of Nov 2024. Also found lower GIB 2/2 bleeding hemorrhoids vs interspinal ischemia due to shock that later resolved and anemia was not progressing while continued Eliquis. Hematology evaluated for
monoclonal spike seen on previous admission - outpatient f/u. Tremors improved on Sinemet. Outpatient neurologist advised. Repeat TSH in 2-3 weeks since new Levothyroxine started. Medically stable for d/c to STR as recommended by PT/OT. Recurrent
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
#Shock, unclear mechanism, cannot r/o autonomic dysfunction - neurogenic hypotension vs proctitis
#Hypothermia
#Hypothyroidism
#Pre-syncope 2/2 orthostatic hypotension with blurry vision
#Autonomic dysfunction with symptomatic orthostatic hypotension
Random cortisol low, however ACTH neg for adrenal insufficiency. TSH elevated:
Started on Hydrocotisone 15mg AM and 5mg PM since on hold d/t high dose steroid tx's as below. Synthroid increased to 150mcg since TSH elevated, cont.
cont midodrine for orthostatic hypotension
Zosyn completed as per ID: CXR - no pneumonia, no signs of UTI with absent pyuria, Bcx NGTD
Warming blanket when symptomatic only (chills, shivering)
Cardiology consult appreciated no significant valvular deficiency, arrhythmia. Recommended abd binder and compression stocking up to the thigh when upright - ordered
#Spinal stenosis with worsening lower back pain
MRI thoracic spine shows no discitis or osteomyelitis. However, 3 focal areas of increased T2 and STIR signal within the thoracic spinal cord as described, at the T5, superior T7, and T8/T8-9 levels. Etiology for this focal signal intensity
abnormality is uncertain. Main differential considerations of demyelinating lesions, transverse myelitis, and ischemia.
MRI L-spine IMPRESSION: Moderate to severe changes of degenerative disc disease at L4-5 and L5-S1. Since previous MRI of February 09, 2024, development of fluid signal intensity diffusely involving the disc space at L4-5 and involving the anterior
aspect of the disc space at L5-S1. On recent CT scan, vacuum disc phenomenon at L4-5 is evidence against discitis and osteomyelitis. Also, the lack of significant decreased T1-weighted signal within the endplates at L4-5 and L5-S1 is also evidence
against discitis, as well as relatively stable appearance of the endplates on CT scans dating back to November 2024. See above discussion.
LP completed, unable to to repeat not enough fluid
Started on high dose IV Steroids by neuro x 5/5days (completed), long steroid prednisone taper, started at 60 mg daily, dose to be reduced by 10 mg every week.
PT/OT appreciated acute rehab. PMR eval requested
#Small R kidney lesions, probably cyst
#L adrenal lesion: old hemorrhage or cyst
Repeat outpatient CT in 6mo
#Hx of positive RF and antiCCP Ab
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
#Macrocyticg anemia
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
b12 and folate WNL
Hematology consult: rgecent SPEP, Immunoglobulins, FLC, haptoglobin
#SNOW on CKD stage 3b
resolved
Cr baseline 1.2-1.4
Hydrate
maintain BP
follow Cr
#Parkinsonism with hallucination and dysautonomia
01/26 orthostatics were neagtive and asymptoatimc
As per neurology assessment 05/05/24
Levodopa attempted but developed worsening of orthostasis
Liberalize fluid intake
avoid BP meds
Waste-high stocking, abdominal binder
Steroids as above
Recent MRI brain in Nov 2024 - no acute findings
#Paroxysmal Afib
well controlled
cont Amiodarone
Eliquis 5 mg BID
#Lower GIB 2 hemorrhoids
GI consult: cont Eliquis
monitor H&H
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
carrier
With multitude of comorbidities - reasonable to complete 10 days Vanco especially with loose stools
#01/29 Wheezing
-CXR results appreciated mild interstitial cardiogenic pulm edema, cardiomegaly
-BNP elevated 4010
-wheezing however since resolved with scheduled Duonebs de-escalated to PRN 01/30
-Check limited follow up ECHO 01/30
-home PO Lasix 20 mg daily resumed
#01/29 Suspect oral thrush
Nystatin swish started, cont
DVT ppx Eliquis
Full code
Discussed with patient and patient's daughter Vilma
I spent a total of 40 minutes with the patient or on the floor. More than 50% of this time involved counseling and coordination of care.
Anticipated Discharge: Within 24 hours
Subjective/Interval History
-
Date of Service: January 30, 2025
No acute distress, resting comfortably in bed. Wheezing significantly improved/resolved since start of scheduled duonebs.
Objective Data
-
Labs:
Laboratory Results
01/30/25
06:08
WBC 7.9
Hgb 10.1 L
Hct 31.1 L
Plt Count 198
Sodium 138
Potassium 4.3
Chloride 106
Carbon Dioxide 32 H
BUN 30 H
Creatinine 1.0
Glucose 187 H
Calcium 8.6
Vital Signs:
Vital Signs
Temp Pulse Resp BP Pulse Ox
97.5 F 61 16 143/72 96
01/30/25 07:23 01/30/25 07:24 01/30/25 07:24 01/30/25 07:23 01/30/25 07:24
I&O
01/29/25 01/30/25 01/31/25
06:59 06:59 06:59
Intake Total 1200 / 1200 1440 / 1440
Balance 1200 / 1200 1440 / 1440
[2025-01-30] MEDS: MYCOSTATIN ORAL SUSPENSION 5 ML PO ×4 (07:45→21:23)
[2025-01-30] MEDS: VITAMIN B1 100 MG PO (07:45)
[2025-01-30] MEDS: PACERONE 200 MG PO (07:45)
[2025-01-30] MEDS: VITAMIN B-12 1000 MCG PO (07:46)
[2025-01-30] MEDS: ELIQUIS 5 MG PO ×2 (07:46→20:34)
[2025-01-30] MEDS: OSCAL 500 + D 500 MG PO ×2 (07:46→20:34)
[2025-01-30] MEDS: MUCINEX 1200 MG PO ×2 (07:46→20:34)
[2025-01-30] MEDS: PROTONIX 40 MG PO ×2 (07:46→20:34)
[2025-01-30] MEDS: DELTASONE 60 MG PO (09:19)
[2025-01-30 11:46] LABS: Glucose - Point of Care 213 mg/dl (70-99)
[2025-01-30] MEDS: NOVOLOG FLEXPEN-LOW RESISTANCE 2 UNITS SC ×2 (13:00→18:12)
[2025-01-30 14:04] LABS: Syphilis/T. pallidum Ab Reflex Negative (Negative)
[2025-01-30 14:45] VITALS: BP 148/71
--- NOTE | 2025-01-30 15:52 | CON.MD ---
Consultation - Medical
-
Chief Complaint:�Debility
�
History of Present Illness:�79-year-old female with PMH (as below) presented to [facility] on 01/10/2025 with rectal bleeding for 1-1/2 weeks with history of hemorrhoids. Her blood pressure was in the 80s prompting evaluation in the
emergency department. Patient's her gave her a dose of midodrine before coming. BUN/creatinine 60/2.2. She is given a liter of IV fluid. Concern for sepsis and started on antibiotics. Also started on Levophed infusion and admitted to the ICU.
Seen by GI with rectal bleeding thought to be secondary to hemorrhoids. Started on fludrocortisone to help with orthostasis. Antibiotics were discontinued with no signs of infection. Sinemet had been held due to concern for orthostasis but was
restarted with resolution of tremor. Patient was negative for ACTH test for primary adrenal insufficiency. MRI thoracic spine: no discitis or osteomyelitis. However, 3 focal areas of increased T2 and STIR signal within the thoracic spinal cord as
described, at the T5, superior T7, and T8/T8-9 levels. Etiology for this focal signal intensity abnormality is uncertain. Main differential considerations of demyelinating lesions, transverse myelitis, and ischemia. Started on a 5-day course of
methylprednisolone for possible multiple sclerosis versus transverse myelitis on 01/26. Plan for steroid taper starting at 60 mg with a decrease of 10 mg every 7 days until follow-up with neurology. Patient developed thrush and started on nystatin
swish.
Overall she is feeling better. Still with bleeding hemorrhoids. Moving bowels. Feeling better overall.
�
Past Medical History:�V. tach s/p pacemaker, ICD, hypertension, hypercholesterolemia, hypothyroidism rheumatoid arthritis
Procedure History:�Pacemaker/defibrillator, cholecystectomy, hysterectomy, bilateral knee replacement
Family History:�None pertinent
�
Social History:�
Functional Level Premorbidly:�Assisted with mobility and ADLs. 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 Patient is alone when daughter is at work. Patient sits in a office chair with access to the computer and TV and waits for the daughter to
get home. She cannot walk independently to the bathroom and into the kitchen with rollator. Walker does not fit in the bathroom.
Functional Level Currently:�Min assist bed mobility, max assist transfers, min assist ambulating 15 feet with rolling walker with assist of 2. Max assist toileting. Max assist upper extremity self-care and independent for lower extremity self-care.
�
Tobacco:�Former smoker, quit 20 years ago
Alcohol:�Denies�
Drug use:�Denies�
�
Lives with:�Daughter
24-hour assistance available:�No
Number of floors:�2 plus a basement
# steps to enter:�2
# steps to second floor: full flight
Potential First floor set up:�Yes
Driving:�No
Occupation:�Retired
�
�
Allergies:�
Allergy/AdvReac Type Severity Reaction Status Date / Time
celecoxib Allergy stomach Verified 01/10/25 21:41
pains
codeine Allergy nausea/vomi Verified 01/10/25 13:09
ting
�
Review of Systems:�
Constitutional: (x) abNormal _fatigue
Eye: (x) Normal _
Ear/Nose/Throat: (x) Normal _
Respiratory: (x) Normal _
Cardiovascular: (x) Normal _
Gastrointestinal: (x) abNormal_ bleeding hemorrhoids.
Genitourinary: (x) Normal _
Musculoskeletal: (x) Normal _
Integumentary: (x) abNormal _trouble walking, poor balance
Neurologic: (x) Normal _
Psychiatric: (x) Normal _
Endocrine: (x) Normal _
Hematologic/Lymphatic: (x) Normal _
Allergic/Immunologic: (x) Normal _
�
Medications:�
Active Current Visit Medication List
Category Date Time Status
Acetaminophen [Tylenol] Med 01/20/25 20:57 Active
650 mg PO Q4HPRN PRN
Amiodarone [Pacerone] Med 01/11/25 08:00 Active
200 mg PO DAILY
Anusol Hc Suppository [Anusol Hc] Med 01/11/25 22:00 Active
25 mg RECTAL HS
Apixaban [Eliquis] Med 01/22/25 20:00 Active
5 mg PO BID
Calcium Carbonate/Vitamin D3 [Oscal 500 + D] Med 01/10/25 20:00 Active
500 mg PO BID
Cyanocobalamin [Vitamin B-12] Med 01/11/25 08:00 Active
1,000 mcg PO DAILY
Dextrose 50%-Water [Dextrose 50% Syringe] Med 01/29/25 12:46 Active
12.5 grams IV [id number] PRN
Flush (0.9% Sodium Chloride) [Flush (Nss)] Med 01/10/25 20:00 Active
See Dose Instructions IV PER PROTOCOL
Glucagon [GlucaGen] Med 01/29/25 12:46 Active
1 mg IM PRN PRN
Guaifenesin [Mucinex] Med 01/11/25 22:00 Active
1,200 mg PO Q12
Insulin Aspart Corrective Low [Novolog Flexpen-Low Med 01/29/25 16:30 Active
Resistance]
See Protocol SC AC
Ipratropium/Albuterol Sulfate [Duoneb] Med 01/29/25 16:19 Active
3 ml INH R Q4HPRN PRN
Ipratropium/Albuterol Sulfate [Duoneb] Med 01/29/25 20:00 Active
3 ml INH R QID
Levothyroxine [Synthroid] Med 01/20/25 06:45 Active
150 mcg PO DAILY @ 0600
Lorazepam [Ativan] Med 01/24/25 10:30 Active
1 mg PO ONCE PRN PRN
Magnesium Oxide Med 01/11/25 08:00 Hold
400 mg PO DAILY
Miconazole Nitrate [Desenex/Mitrazol/Zeasorb] Med 01/10/25 23:56 Active
1 applic TOPICAL BIDPRN PRN
Midodrine [ProAmatine] Med 01/17/25 11:22 Active
10 mg PO TID@0800,1300,1800
Nystatin Suspension [Mycostatin Oral Suspension] Med 01/29/25 18:00 Active
5 ml PO QID
Pantoprazole [Protonix] Med 01/13/25 20:00 Active
40 mg PO BID
Prednisone [Deltasone] Med 01/30/25 08:00 Active
60 mg PO DAILY
Thiamine HCl [Vitamin B1] Med 01/11/25 08:00 Active
100 mg PO DAILY
Vancomycin HCl [Firvanq] Med 01/21/25 12:00 Active
125 mg PO Q6
�
Vitals:�
Temp Pulse Resp BP Pulse Ox
97.4 F 61 16 148/71 97
01/30/25 14:45 01/30/25 15:21 01/30/25 15:21 01/30/25 14:45 01/30/25 14:45
Height 5 ft 6 in
Actual Weight 100.6 kg
Body Mass Index (BMI) 35.8
�
Physical Exam:�
General Appearance/Observation: Well-developed, well-nourished female in no apparent distress.�
Pain/Comfort Assessment: Denies�
Mood/Affect: Appropriate�
�
Integumentary/Operative Site:�discoloration red/ecchymotic in legs. Bleeding under the buttocks on sheets.
�
Eyes: Conjunctiva/Lids: normal��� Pupils: pupils equal round and reactive to light and Accommodation
Ears/Nose/Throat: oral mucosa moist, throat clear.������������ Lips/Teeth/Gums: normal
Cardiovascular: Heart: regular, no murmur�
Pulses: dorsalis pedis 2+ bilaterally�
Respiratory: Respiratory Effort/Chest Expansion: normal������ Auscultation: Clear to auscultation bilaterally
Gastrointestinal: abdomen not tender, no distension, normal abdominal bowel sounds
Genitourinary: No Parikh�
Rectal Exam: Deferred�
Extremities:�Edema: bilateral LE edema non-pitting.�Cyanosis: None�Trophic�changes: significant both legs with wood like texture, with discoloration red/ecchymotic
Neurology Exam:
Orientation: Alert, Oriented to self, Time, Place�
Memory: Intact for recent medical concerns.
Repetition: Intact
Comprehension: Intact
Two step command: Intact
Naming: Intact
- Can tell time across the room
Cranial Nerves:
�� CNII:�Pupillary light reflex: Intact���Visual Field: Intact
�� CN III, IV, : Extraocular muscles: Intact�
�� CN V:�Facial Sensation�at�Forehead: Intact,�Maxilla: Intact,�Mandible: Intact
�� CN VII:�Facial movement: Symmetric
�� CN VIII:�Hearing: Normal
�� CN IX/X:�Speech & swallow: Normal,�Position of Uvula: Midline
�� CN XI:�Shoulder shrug: Symmetric
�� CN XII:�Tongue protrusion: Midline
Sensory:
�� Light touch: Intact in bilateral upper and lower extremities
�
Reflexes:
�� Biceps: 2+ bilaterally
�� Brachioradialis: 2+ bilaterally
�� Triceps: 2+ bilaterally
�� Patellar: 2+ bilaterally
�� Achilles: 2+ bilaterally
�� Babinski: Down going bilaterally
�� Clonus: None
�� Scot: Negative bilaterally�
Cerebellar: Dysmetria/Ataxia: None�
Musculoskeletal: Motor: (Manual muscle scale 0-5)�
Muscle SA EF WE EE FF FA HF KE DF EHL PF
Right� 5 5 5 5 5 4 2 4 3 2+ 5
Left 5 5 5 5 5 4 2 4 4 2+ 5
�
Tone: Normal in all extremities�
Range of Motion: decreased ROM both shoulders to about 120 degrees
�
Lab Results
Laboratory Data
01/30/25 06:08
01/30/25 06:08
PT 15.8 Sec (11.4-14.6) H 01/24/25 11:15
INR 1.21 01/24/25 11:15
APTT 53.4 Sec (23.4-35.0) H 01/11/25 02:35
Total Bilirubin 0.6 mg/dl (0.2-1.3) 01/25/25 06:22
AST 29 U/L (14-36) 01/25/25 06:22
ALT 32 U/L (0-35) 01/25/25 06:22
Alkaline Phosphatase 99 U/L (38-126) 01/25/25 06:22
Total Protein 5.8 g/dl (6.3-8.2) L 01/25/25 06:22
Albumin 2.7 g/dl (3.5-5.0) L 01/25/25 06:22
�
Diagnostic Results:�as per HPI�
�
Assessment
79 y/o F PMH (V. tach s/p pacemaker, ICD, hypertension, hypercholesterolemia, hypothyroidism, rheumatoid arthritis) with 01/10/2025 with rectal bleeding, orthostatics, and concern for demyelinating lesions including transverse myelitis vs multiple
sclerosis on high dose steroid program with improvement resulting in ADL and ambulatory dysfunction.
Plan�
PM&R�PT/OT to increase independence with ADLs, improve balance, coordination, endurance, strength, mobility, community reintegration, decreased burden of care on others and family education.�
Thoracic transverse myelitis vs multiple sclerosis: steroid taper starting at 60 mg with a decrease of 10 mg every 7 days until follow-up with neurology.
Thrush: nystatin
Parkinsonism with hallucination and dysautonomia: as per orthostasis. Tried Sinemet but BP dropped.
Orthostasis: Florinef, midodrine 10 mg TID with TEDS. Autonomic dysfunction likely.
Hemorrhoids: still with active bleeding. Medications, monitor hemoglobin.
C. Diff history: on oral vancomycin with antibiotics recently to prevent reoccurrence. Antibody positive with toxin negative.
HTN: lasix 20 mg daily, monitor closely�
HLD: Statin�
Tachy/jesse syndrome: ICD, amiodarone
Paroxysmal A-fib: amiodarone for rate control. Eliquis anticoagulation.
Hypothyroidism: levothyroxine�
�
Macrocytic Anemia: Likely multifactorial including bleeding hemorrhoids. B12 level is high. Folate is normal.
SNOW on CKD 3b: monitor
Psych: Monitor mood, medications as needed.�
Skin: monitor for pressure sores/rashes/lesions.�
Pain: acetaminophen as needed.�
Bowel: monitor off bowel meds, moving bowels.
Bladder: Time void, PVRs, PRN straight cath.�
GI Prophylaxis: Pantoprazole�
DVT Prophylaxis: mechanical and Eliquis.�
Pulmonary: Incentive spirometry�
Type II obesity: Continue to program counselor patient about diet adjustments to control obesity. Body habitus and increased force to move body and extremities causes further difficulty with functional tasks.�
Safety: Continue to reinforce assistance with all transfers.�
Code Status:� Full code
Dispo�(date/plan/equipment needs): Home with family care.� Social history reviewed.�
Functional and Medical Goals:�Modified Independent with ADL�s, ambulation, transfers�
Discharge Destination:�Acute inpatient rehabilitation.�
A total of 60 minutes were spent with the patient preparing for the evaluation, obtaining history, performing examination and evaluation, counseling, data review, case management, care coordination, court recorder, and EMR documentation.
�
Thank you for allowing me to care for your patient. Please contact me with any questions or concerns.
Consultation
-
Date/Time Consultation Requested: 01/30/25
Date/Time Consultation Performed: 01/30/25
Requesting Provider: Dr. Vidal Meredith
Performing Provider: Dr. Kamran Edwards
Reason for Consultation: Debility
--- NOTE | 2025-01-30 16:24 | CM ---
spoke with Gwen Zamora from [facility] [phone]
patient was approved for [facility]
Auth #[id number]
01/30/25-02/05/25, NRD 02/05/25
dining room coordinator Neha Dupree
Fax updates to [phone]
PT/OT had rec Acute Rehab, spoke with patient/dtr Vilma referral in for [facility]
hospitalist ordered PM&R consult, spoke with Italia from [facility] Wilhelm
PLAN: Acute vs. SNF
[2025-01-30 16:46] LABS: Glucose - Point of Care 203 mg/dl (70-99)
[2025-01-30 21:15] LABS: Glucose - Point of Care 223 mg/dl (70-99)
[2025-01-30] MEDS: ANUSOL HC RECTAL (21:18)
[2025-01-30 23:20] VITALS: BP 135/81
[2025-01-31 00:16] LABS: SSA 52 (Ro)(ENA) Ab, IgG 3 AU/mL (0-40); SSA 60 (Ro)(ENA) Ab, IgG 1 AU/mL (0-40); SSB (La)(ENA) Ab, IgG 1 AU/mL (0-40)
[2025-01-31] MEDS: FIRVANQ 125 MG PO ×2 (00:42→05:21)
[2025-01-31 01:21] LABS: Myelin Assoc Glycoprotein Ab <1000 TU (0-999)
[2025-01-31] MEDS: SYNTHROID 150 MCG PO (05:21)
[2025-01-31 06:00] VITALS: BMI 37.3
[2025-01-31 06:59] LABS: Copper, Serum 79.5 ug/dL (80.0-155.0)
[2025-01-31 07:00] VITALS: BP 137/79
[2025-01-31 07:11] LABS: Hematocrit 30.9 % (37.0-47.0); Hemoglobin 9.9 g/dL (12.0-16.0); Mean Corp Hgb Conc. 32.0 g/dL (33.0-37.0); Mean Corpuscular Volume 109.6 fL (81.0-99.0); Platelet Count 201 10^3/uL (130-400); Red Cell Dist. Width 16.4 % (11.5-14.5)
[2025-01-31 07:21] LABS: Blood Urea Nitrogen 31 mg/dl (7-17); Calcium 8.2 mg/dl (8.4-10.2); Carbon Dioxide 32 mmol/L (22-30); Chloride 106 mmol/L (98-107); Estimated Creatinine Clearance 55 ml/min; Glucose 160 mg/dl (70-99); Magnesium 2.3 mg/dl (1.6-2.3); Potassium 4.0 mmol/L (3.5-5.1); Sodium 137 mmol/L (135-145); eGFR 56.95
[2025-01-31 07:39] LABS: Glucose - Point of Care 149 mg/dl (70-99)
--- NOTE | 2025-01-31 08:08 | W.PN.HOSP.TC ---
Today's Communication/Plan
-
Discharge planning Acute Rehab
Assessment / Plan
Assessment / Plan
Physical Exam
Genera: NAD appears relatively comfortable at this time. Obese
HEENT: Scleral Anicteric, facial flushing, MMM,No JVD, cottage cheese appearance on tongue
Pulm: clear to auscultation b/l
Cardio: RRR, S1/S2
GI: Soft, NT, ND, BS+
Ext: Warm, Dry
Neuro: AAOx3 conversant coherent
Psych: Calm
79F with PMHX of cholecystectomy, Parkinsons, hypothyroidism, Afib Eliquis, poor ambulatory capacity, came with chills for few days before admission, found shock and hypothermia. Patient had Hx of the same with negative w/u, possibly due to
autonomic dysfunction discharged from at the end of Nov 2024. Also found lower GIB 2/2 bleeding hemorrhoids vs interspinal ischemia due to shock that later resolved and anemia was not progressing while continued Eliquis. Hematology evaluated for
monoclonal spike seen on previous admission - outpatient f/u. Tremors improved on Sinemet. Outpatient neurologist advised. Repeat TSH in 2-3 weeks since new Levothyroxine started. Medically stable for d/c to STR as recommended by PT/OT. Recurrent
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
#Shock, unclear mechanism, cannot r/o autonomic dysfunction - neurogenic hypotension vs proctitis
#Hypothermia
#Hypothyroidism
#Pre-syncope 2/2 orthostatic hypotension with blurry vision
#Autonomic dysfunction with symptomatic orthostatic hypotension
Random cortisol low, however ACTH neg for adrenal insufficiency. TSH elevated:
Started on Hydrocotisone 15mg AM and 5mg PM since on hold d/t high dose steroid tx's as below. Synthroid increased to 150mcg since TSH elevated, cont.
cont midodrine for orthostatic hypotension
Zosyn completed as per ID: CXR - no pneumonia, no signs of UTI with absent pyuria, Bcx NGTD
Warming blanket when symptomatic only (chills, shivering)
Cardiology consult appreciated no significant valvular deficiency, arrhythmia. Recommended abd binder and compression stocking up to the thigh when upright - ordered
#Spinal stenosis with worsening lower back pain
MRI thoracic spine shows no discitis or osteomyelitis. However, 3 focal areas of increased T2 and STIR signal within the thoracic spinal cord as described, at the T5, superior T7, and T8/T8-9 levels. Etiology for this focal signal intensity
abnormality is uncertain. Main differential considerations of demyelinating lesions, transverse myelitis, and ischemia.
MRI L-spine IMPRESSION: Moderate to severe changes of degenerative disc disease at L4-5 and L5-S1. Since previous MRI of February 09, 2024, development of fluid signal intensity diffusely involving the disc space at L4-5 and involving the anterior
aspect of the disc space at L5-S1. On recent CT scan, vacuum disc phenomenon at L4-5 is evidence against discitis and osteomyelitis. Also, the lack of significant decreased T1-weighted signal within the endplates at L4-5 and L5-S1 is also evidence
against discitis, as well as relatively stable appearance of the endplates on CT scans dating back to November 2024. See above discussion.
LP completed, unable to to repeat not enough fluid
Started on high dose IV Steroids by neuro x 5/5days (completed), long steroid prednisone taper, started at 60 mg daily, dose to be reduced by 10 mg every week.
PT/OT/PMR eval appreciated acute rehab
#Small R kidney lesions, probably cyst
#L adrenal lesion: old hemorrhage or cyst
Repeat outpatient CT in 6mo
#Hx of positive RF and antiCCP Ab
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
#Macrocyticg anemia
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
b12 and folate WNL
Hematology consult: rgecent SPEP, Immunoglobulins, FLC, haptoglobin
#SNOW on CKD stage 3b
resolved
Cr baseline 1.2-1.4
Hydrate
maintain BP
follow Cr
#Parkinsonism with hallucination and dysautonomia
01/26 orthostatics were neagtive and asymptoatimc
As per neurology assessment 05/05/24
Levodopa attempted but developed worsening of orthostasis
Liberalize fluid intake
avoid BP meds
Waste-high stocking, abdominal binder
Steroids as above
Recent MRI brain in Nov 2024 - no acute findings
#Paroxysmal Afib
well controlled
cont Amiodarone
Eliquis 5 mg BID
#Lower GIB 2/2 hemorrhoids
GI consult: cont Eliquis
monitor H&H
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
carrier
With multitude of comorbidities - reasonable to complete 10 days Vanco especially with loose stools
#01/29 Wheezing
-CXR results appreciated mild interstitial cardiogenic pulm edema, cardiomegaly
-BNP elevated 4010
-wheezing however since resolved with scheduled Duonebs de-escalated to PRN 01/30
-Check limited follow up ECHO 01/30
-home PO Lasix 20 mg daily resumed
#01/29 Suspect oral thrush
Nystatin swish started, cont
DVT ppx Eliquis
Full code
Discussed with patient and patient's daughter Vilma
I spent a total of 40 minutes with the patient or on the floor. More than 50% of this time involved counseling and coordination of care.
Anticipated Discharge: Within 24 hours
Subjective/Interval History
-
Date of Service: January 31, 2025
No acute distress, sitting up comfortably in chair, wheezing improved/resolved. Denies new acute issues.
Objective Data
-
Labs:
Laboratory Results
01/31/25
06:18
WBC 11.2 H
Hgb 9.9 L
Hct 30.9 L
Plt Count 201
Sodium 137
Potassium 4.0
Chloride 106
Carbon Dioxide 32 H
BUN 31 H
Creatinine 1.0
Glucose 160 H
Calcium 8.2 L
Vital Signs:
Vital Signs
Temp Pulse Resp BP Pulse Ox
98.2 F 84 19 137/79 98
01/31/25 07:00 01/31/25 07:00 01/31/25 07:00 01/31/25 07:00 01/31/25 07:00
I&O
01/30/25 01/31/25 02/01/25
06:59 06:59 06:59
Intake Total 1440 / 1440 1680 / 1680
Balance 1440 / 1440 1680 / 1680
--- NOTE | 2025-01-31 08:50 | CM ---
Addendum entered by Carmen Sierra 01/31/25 11:16:
clinicals were also sent [facility] to [facility]
Original Note:
PM&R eval rec Acute rehab
spoke with Italia at [facility] and updated - referral in [facility]
dtr Vilma & patient would like [facility]
CM will need to obtain ins authorization - will need updated PT/OT notes today (they are aware)
[facility] NPI #: [id number]
Dr. Wilhelm NPI #: [id number]
CM called [facility] [phone] and spoke with Mikaela Teran
Auth initiated for [facility]
Pending Reference #: [id number]
CM to fax clinicals to [phone]
PLAN: [facility], pending determination of ins auth
[2025-01-31] MEDS: NOVOLOG FLEXPEN-LOW RESISTANCE SC ×2 (08:52→12:04)
[2025-01-31] MEDS: VITAMIN B1 100 MG PO (08:53)
[2025-01-31] MEDS: MUCINEX 1200 MG PO ×2 (08:53→21:26)
[2025-01-31] MEDS: ELIQUIS 5 MG PO ×2 (08:53→21:26)
[2025-01-31] MEDS: OSCAL 500 + D 500 MG PO ×2 (08:53→21:26)
[2025-01-31] MEDS: MYCOSTATIN ORAL SUSPENSION 5 ML PO ×4 (08:53→21:26)
[2025-01-31] MEDS: LASIX 20 MG PO (08:53)
[2025-01-31] MEDS: VITAMIN B-12 1000 MCG PO (08:53)
[2025-01-31] MEDS: PACERONE 200 MG PO (08:53)
[2025-01-31] MEDS: PROTONIX 40 MG PO ×2 (08:53→21:26)
[2025-01-31] MEDS: DELTASONE 60 MG PO (08:54)
[2025-01-31 09:37] VITALS: BP 118/83; BP 124/66; PULSE 72; O2SAT 94
[2025-01-31 09:38] VITALS: BP 118/83; BP 124/66; PULSE 72; O2SAT 94
[2025-01-31 11:25] LABS: Iron 61 ug/dl (37-170)
[2025-01-31 11:34] LABS: Total Iron Binding Capacity 238 ug/dl (265-497)
[2025-01-31 11:58] LABS: Glucose - Point of Care 146 mg/dl (70-99)
[2025-01-31 12:33] LABS: Ferritin 102.0 ng/ml (11.1-264.0)
[2025-01-31 15:00] VITALS: BP 110/76
[2025-01-31 17:29] LABS: Glucose - Point of Care 262 mg/dl (70-99)
[2025-01-31] MEDS: NOVOLOG FLEXPEN-LOW RESISTANCE 3 UNITS SC (17:37)
[2025-01-31] MEDS: ANUSOL HC 25 MG RECTAL (21:26)
[2025-01-31 21:47] LABS: Lyme Disease DNA by PCR Not Detected; Lyme Source Serum
[2025-01-31 22:01] LABS: Glucose - Point of Care 289 mg/dl (70-99)
[2025-01-31 22:59] VITALS: BP 149/83
[2025-02-01 05:12] VITALS: BMI 38.8
[2025-02-01 06:00] VITALS: BMI 38.8
[2025-02-01] MEDS: SYNTHROID 150 MCG PO (06:01)
[2025-02-01 07:00] VITALS: BP 143/96
--- NOTE | 2025-02-01 08:08 | W.PN.HOSP.TC ---
Today's Communication/Plan
-
ativan prn nausea (avoid QT prolonging agents)
Metoprolol XL 12.5 mg BID, IV lopressor prn HR>120
Monitor on tele
Discharge planning Acute Rehab
Assessment / Plan
Assessment / Plan
Physical Exam
Genera: NAD appears relatively comfortable at this time. Obese
HEENT: Scleral Anicteric, facial flushing, MMM,No JVD, cottage cheese appearance on tongue
Pulm: clear to auscultation b/l
Cardio: RRR, S1/S2
GI: Soft, NT, ND, BS+
Ext: Warm, Dry
Neuro: AAOx3 conversant coherent
Psych: Calm
79F with PMHX of cholecystectomy, Parkinsons, hypothyroidism, Afib Eliquis, poor ambulatory capacity, came with chills for few days before admission, found shock and hypothermia. Patient had Hx of the same with negative w/u, possibly due to
autonomic dysfunction discharged from at the end of Nov 2024. Also found lower GIB 2/2 bleeding hemorrhoids vs interspinal ischemia due to shock that later resolved and anemia was not progressing while continued Eliquis. Hematology evaluated for
monoclonal spike seen on previous admission - outpatient f/u. Tremors improved on Sinemet. Outpatient neurologist advised. Repeat TSH in 2-3 weeks since new Levothyroxine started. Medically stable for d/c to [facility] as recommended by PT/OT. Recurrent
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
#Shock, unclear mechanism, cannot r/o autonomic dysfunction - neurogenic hypotension vs proctitis
#Hypothermia
#Hypothyroidism
#Pre-syncope 2/2 orthostatic hypotension with blurry vision
#Autonomic dysfunction with symptomatic orthostatic hypotension
Random cortisol low, however ACTH neg for adrenal insufficiency. TSH elevated:
Started on Hydrocotisone 15mg AM and 5mg PM since on hold d/t high dose steroid tx's as below. Synthroid increased to 150mcg since TSH elevated, cont.
cont midodrine for orthostatic hypotension
Zosyn completed as per ID: CXR - no pneumonia, no signs of UTI with absent pyuria, Bcx NGTD
Warming blanket when symptomatic only (chills, shivering)
Cardiology consult appreciated no significant valvular deficiency, arrhythmia. Recommended abd binder and compression stocking up to the thigh when upright - ordered
#Spinal stenosis with worsening lower back pain
MRI thoracic spine shows no discitis or osteomyelitis. However, 3 focal areas of increased T2 and STIR signal within the thoracic spinal cord as described, at the T5, superior T7, and T8/T8-9 levels. Etiology for this focal signal intensity
abnormality is uncertain. Main differential considerations of demyelinating lesions, transverse myelitis, and ischemia.
MRI L-spine IMPRESSION: Moderate to severe changes of degenerative disc disease at L4-5 and L5-S1. Since previous MRI of February 09, 2024, development of fluid signal intensity diffusely involving the disc space at L4-5 and involving the anterior
aspect of the disc space at L5-S1. On recent CT scan, vacuum disc phenomenon at L4-5 is evidence against discitis and osteomyelitis. Also, the lack of significant decreased T1-weighted signal within the endplates at L4-5 and L5-S1 is also evidence
against discitis, as well as relatively stable appearance of the endplates on CT scans dating back to November 2024.
LP completed, unable to to repeat not enough fluid
Started on high dose IV Steroids by neuro x 5/5days (completed), long steroid prednisone taper, started at 60 mg daily, dose to be reduced by 10 mg every week.
PT/OT/PMR eval appreciated acute rehab
#Small R kidney lesions, probably cyst
#L adrenal lesion: old hemorrhage or cyst
Repeat outpatient CT in 6mo
#Hx of positive RF and antiCCP Ab
outpatient investigation officer follow up recommended
#Macrocyticg anemia
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
b12 and folate WNL
Hematology eval appreciated -Low risk MGUS, Repeat HEYDI& SPEP and Serum Light Chains in 3 months, outpt follow up recommended.
#SNOW on CKD stage 3b
resolved
Cr baseline 1.2-1.4
Hydrate
maintain BP
follow Cr
#Parkinsonism with hallucination and dysautonomia
01/26 orthostatics were neagtive and asymptoatimc
As per neurology assessment 05/05/24
Levodopa attempted but developed worsening of orthostasis
Liberalize fluid intake
avoid BP meds
Waist-high stocking, abdominal binder
Steroids as above
Recent MRI brain in Nov 2024 - no acute findings
#Paroxysmal Afib
#Mildly tachy
cont Amiodarone
Eliquis 5 mg BID
Metoprolol XL resumed reduced dose 12.5 mg BID
IV lopressor prn HR>120
monitor on tele
#Lower GIB 2/2 hemorrhoids
GI consult: cont Eliquis
monitor H&H
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
carrier
With multitude of comorbidities - reasonable to complete 10 days Vanco especially with loose stools (completed)
#01/29 Wheezing (resolved)
-CXR results appreciated mild interstitial cardiogenic pulm edema, cardiomegaly
-BNP elevated 4010
-wheezing however since resolved with scheduled Duonebs de-escalated to PRN 01/30
-limited follow up ECHO 01/30 noted no acute changes from prior ECHO
-home PO Lasix 20 mg daily resumed
#01/29 Suspect oral thrush
Nystatin swish started, cont
DVT ppx Eliquis
Full code
Discussed with patient and patient's daughter Vilma
I spent a total of 40 minutes with the patient or on the floor. More than 50% of this time involved counseling and coordination of care.
Anticipated Discharge: Within 24 hours
Subjective/Interval History
-
Date of Service: February 01, 2025
Nauseaous vomiting this morning. Since improved with prn Ativan (compazine zofran contraindicated d/t QT prolongation). 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 Denies chest pain palpitations.
Objective Data
-
Vital Signs:
Vital Signs
Temp Pulse Resp BP Pulse Ox
97.3 F 109 19 143/96 97
02/01/25 07:00 02/01/25 07:00 02/01/25 07:00 02/01/25 07:00 02/01/25 07:00
I&O
01/31/25 02/01/25 02/02/25
06:59 06:59 06:59
Intake Total 1680 / 1680 1200 / 1200
Output Total 200 / 200
Balance 1680 / 1680 1000 / 1000
[2025-02-01 08:14] LABS: Glucose - Point of Care 181 mg/dl (70-99)
[2025-02-01] MEDS: NSS (PRESERVATIVE FREE) 0.25 ML IV (08:25)
[2025-02-01] MEDS: ATIVAN 0.5 MG IV (08:25)
[2025-02-01] MEDS: LASIX PO (08:30)
[2025-02-01] MEDS: DELTASONE PO (08:30)
[2025-02-01] MEDS: MUCINEX PO (08:30)
[2025-02-01] MEDS: ELIQUIS PO (08:30)
[2025-02-01] MEDS: PROTONIX PO (08:31)
[2025-02-01] MEDS: MYCOSTATIN ORAL SUSPENSION PO ×2 (08:31→13:05)
[2025-02-01] MEDS: OSCAL 500 + D PO (08:31)
[2025-02-01] MEDS: PACERONE PO (08:31)
[2025-02-01] MEDS: VITAMIN B1 PO (08:33)
[2025-02-01] MEDS: VITAMIN B-12 PO (08:33)
[2025-02-01] MEDS: DESENEX/MITRAZOL/ZEASORB 1 APPLIC TOPICAL (08:41)
[2025-02-01] MEDS: NOVOLOG FLEXPEN-LOW RESISTANCE 1 UNITS SC ×2 (09:30→17:27)
[2025-02-01] MEDS: ELIQUIS 5 MG PO ×2 (12:13→19:49)
[2025-02-01] MEDS: DELTASONE 60 MG PO (12:13)
[2025-02-01] MEDS: PACERONE 200 MG PO (12:17)
[2025-02-01 12:36] LABS: Hematocrit 31.8 % (37.0-47.0); Hemoglobin 10.5 g/dL (12.0-16.0); Mean Corp Hgb Conc. 33.0 g/dL (33.0-37.0); Mean Corpuscular Volume 112.0 fL (81.0-99.0); Platelet Count 200 10^3/uL (130-400); Red Cell Dist. Width 16.0 % (11.5-14.5)
[2025-02-01 12:50] LABS: ALT (SGPT) 44 U/L (0-35); AST (SGOT) 32 U/L (14-36); Albumin 2.7 g/dl (3.5-5.0); Alkaline Phosphatase 70 U/L (38-126); Blood Urea Nitrogen 32 mg/dl (7-17); Calcium 8.3 mg/dl (8.4-10.2); Chloride 104 mmol/L (98-107); Estimated Creatinine Clearance 51 ml/min; Glucose 137 mg/dl (70-99); Magnesium 2.2 mg/dl (1.6-2.3); Potassium 3.4 mmol/L (3.5-5.1); Sodium 138 mmol/L (135-145); Total Protein 5.2 g/dl (6.3-8.2); eGFR 50.80
[2025-02-01 12:58] LABS: Glucose - Point of Care 139 mg/dl (70-99)
[2025-02-01 13:01] LABS: Carbon Dioxide 36 mmol/L (22-30)
[2025-02-01] MEDS: NOVOLOG FLEXPEN-LOW RESISTANCE SC (13:01)
[2025-02-01] MEDS: POTASSIUM PHOSPHATE 259.0909 MEQ IV (13:32)
[2025-02-01] MEDS: MYLICON 80 MG PO (15:43)
[2025-02-01 15:44] VITALS: BP 119/64
--- NOTE | 2025-02-01 16:06 | PTCARENOTE ---
at 0731, patient with nausea and vomited mod amount of emesis in basin. vss, LBM yesterday but abdomen distended. notified Dr. Dawson via tiger text requesting antiemetic. at 0737. Dr. Eunice rodriguez texted back to me that he ordered PRN Ativan due to
QT prolongation and repeat EKG. at 0805, EKG showing atrial fibrillation with premature ventricular or aberrantly conducted complexes, right Bundle Branch Block, abnormal EKG. abd x-ray done and just showed moderate to severe diffuse gaseous
distention of the colon and dose of Mylicon ordered and started and will be PRN. Initially, patient not able to take any oral medications, then able to take Eliquis, Amiodarone and Prednisone, reports nausea improved and able to tolerate bites of
pumpkin pie and cookies her family brought in, will continue to monitor.
[2025-02-01 16:39] LABS: Glucose - Point of Care 191 mg/dl (70-99)
[2025-02-01] MEDS: MYCOSTATIN ORAL SUSPENSION 5 ML PO ×2 (17:25→20:50)
--- NOTE | 2025-02-01 19:16 | PTCARENOTE ---
pt with heart rate from 108-130's. asymptomatic. Dr. Dawson notified and ordering Lopressor PRN for HR >120, will continue to monitor.
[2025-02-01 19:48] VITALS: BP 107/69
[2025-02-01] MEDS: PROTONIX 40 MG PO (19:49)
[2025-02-01] MEDS: OSCAL 500 + D 500 MG PO (19:49)
[2025-02-01] MEDS: MUCINEX 1200 MG PO (19:49)
[2025-02-01] MEDS: TOPROL XL 12.5 MG PO (19:50)
[2025-02-01] MEDS: KCL 270 MEQ IV (20:29)
[2025-02-01] MEDS: ANUSOL HC 25 MG RECTAL (20:50)
[2025-02-01 21:22] LABS: Glucose - Point of Care 212 mg/dl (70-99)
[2025-02-01 21:34] LABS: Gamma-Tocopherol 0.9 mg/L (0.0-6.0)
[2025-02-02] VITALS (8 sets, daily range): BP systolic 124–151; BP diastolic 71–104; PULSE 99; O2SAT 96; BMI 38.7
[2025-02-02] MEDS: LOPRESSOR 5 MG IV (00:14)
[2025-02-02] MEDS: SYNTHROID 150 MCG PO (05:44)
[2025-02-02 06:34] LABS: Hematocrit 30.7 % (37.0-47.0); Hemoglobin 10.0 g/dL (12.0-16.0); Mean Corp Hgb Conc. 32.6 g/dL (33.0-37.0); Mean Corpuscular Volume 110.8 fL (81.0-99.0); Platelet Count 193 10^3/uL (130-400); Red Cell Dist. Width 16.0 % (11.5-14.5)
[2025-02-02 06:46] LABS: Blood Urea Nitrogen 28 mg/dl (7-17); Calcium 8.1 mg/dl (8.4-10.2); Chloride 105 mmol/L (98-107); Estimated Creatinine Clearance 51 ml/min; Glucose 162 mg/dl (70-99); Magnesium 2.2 mg/dl (1.6-2.3); Potassium 4.2 mmol/L (3.5-5.1); Sodium 137 mmol/L (135-145); eGFR 50.80
[2025-02-02 06:55] LABS: Carbon Dioxide 35 mmol/L (22-30)
[2025-02-02 07:41] LABS: Glucose - Point of Care 173 mg/dl (70-99)
--- NOTE | 2025-02-02 07:47 | W.PN.HOSP.TC ---
Today's Communication/Plan
-
Metoprolol increased rate control
monitor on Tele
preparation H prn hemorrhoid pain/discomfort
Gas-x prn gas discomfort
Discharge planning
Assessment / Plan
Assessment / Plan
Physical Exam
Genera: NAD appears relatively comfortable at this time. Obese
HEENT: Scleral Anicteric, facial flushing, MMM,No JVD, cottage cheese appearance on tongue
Pulm: clear to auscultation b/l
Cardio: RRR, S1/S2
GI: Soft, NT, ND, BS+
Ext: Warm, Dry
Neuro: AAOx3 conversant coherent
Psych: Calm
79F with PMHX of cholecystectomy, Parkinsons, hypothyroidism, Afib Eliquis, poor ambulatory capacity, came with chills for few days before admission, found shock and hypothermia. Patient had Hx of the same with negative w/u, possibly due to
autonomic dysfunction discharged from at the end of Nov 2024. Also found lower GIB 2/2 bleeding hemorrhoids vs interspinal ischemia due to shock that later resolved. Anemia stable on Eliquis. Hematology evaluated for monoclonal spike seen on
previous admission - outpatient f/u recommended.
#Shock, unclear mechanism, cannot r/o autonomic dysfunction - neurogenic hypotension vs proctitis
#Hypothermia
#Hypothyroidism
#Pre-syncope 2/2 orthostatic hypotension with blurry vision
#Autonomic dysfunction with symptomatic orthostatic hypotension
Random cortisol low, however ACTH neg for adrenal insufficiency. TSH elevated
Started on Hydrocotisone 15mg AM and 5mg PM since on hold d/t high dose steroid tx's as below. Synthroid increased to 150mcg since TSH elevated (improved since increase)
cont midodrine for orthostatic hypotension
Zosyn completed as per ID: CXR - no pneumonia, no signs of UTI with absent pyuria, Bcx NGTD
Warming blanket when symptomatic only (chills, shivering)- since resolved (last low temp 01/27)
Cardiology consult appreciated no significant valvular deficiency, arrhythmia. Recommended abd binder and compression stocking up to the thigh when upright - ordered
#Spinal stenosis with worsening lower back pain
MRI thoracic spine shows no discitis or osteomyelitis. However, 3 focal areas of increased T2 and STIR signal within the thoracic spinal cord, at the T5, superior T7, and T8/T8-9 levels. Etiology for this focal signal intensity abnormality is
uncertain. Main differential considerations of demyelinating lesions, transverse myelitis, and ischemia.
MRI L-spine IMPRESSION: Moderate to severe changes of degenerative disc disease at L4-5 and L5-S1. Since previous MRI of February 09, 2024, development of fluid signal intensity diffusely involving the disc space at L4-5 and involving the anterior
aspect of the disc space at L5-S1. On recent CT scan, vacuum disc phenomenon at L4-5 is evidence against discitis and osteomyelitis. Also, the lack of significant decreased T1-weighted signal within the endplates at L4-5 and L5-S1 is also evidence
against discitis, as well as relatively stable appearance of the endplates on CT scans dating back to November 2024.
LP completed, unable to to repeat not enough fluid
Started on high dose IV Steroids by neuro x 5/5days (completed), long steroid prednisone taper, started at 60 mg daily, dose to be reduced by 10 mg every week.
PT/OT/PMR eval appreciated acute rehab
#Small R kidney lesions, probably cyst
#L adrenal lesion: old hemorrhage or cyst
Repeat outpatient CT in 6mo
#Hx of positive RF and antiCCP Ab
outpatient parts counter representative follow up recommended
#Macrocyticg anemia
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
b12 and folate WNL
Hematology eval appreciated -Low risk MGUS, Repeat HEYDI& SPEP and Serum Light Chains in 3 months, outpt follow up recommended.
#SNOW on CKD stage 3b
resolved
Cr baseline 1.2-1.4
Hydrate
maintain BP
follow Cr
#Parkinsonism with hallucination and dysautonomia
01/26 orthostatics were negative and asymptomatic
As per neurology assessment 05/05/24
Levodopa attempted but developed worsening of orthostasis
Liberalize fluid intake
avoid BP meds
Waist-high stocking, abdominal binder
Steroids as above
Recent MRI brain in Nov 2024 - no acute findings
#Paroxysmal Afib
#Mildly tachy
cont Amiodarone
Eliquis 5 mg BID
Metoprolol XL resumed reduced dose 12.5 mg BID titrated up to 50 mg BID
IV lopressor prn HR>120
monitor on tele
#Hemorrhoids
cont anusol hs
preparation H prn
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
carrier, multiple comorbidities, frequent loose stools and abd discomfort
completed 10 days PO vanc
#01/29 Wheezing (resolved)
-CXR results appreciated mild interstitial cardiogenic pulm edema, cardiomegaly
-BNP elevated 4010
-wheezing however since resolved with scheduled Duonebs de-escalated to PRN 01/30
-limited follow up ECHO 01/30 noted no acute changes from prior ECHO
-home PO Lasix 20 mg daily resumed
#01/29 Suspect oral thrush
Nystatin swish started 7 days 01/29-02/04
DVT ppx Eliquis
Full code
Discussed with patient and patient's daughter Vilma
I spent a total of 40 minutes with the patient or on the floor. More than 50% of this time involved counseling and coordination of care.
Anticipated Discharge: 24 - 48 hours
Subjective/Interval History
-
Date of Service: February 02, 2025
no acute distress, sitting up comfortably in bed. Reports pain from hemorrhoids and gas discomfort
Objective Data
-
Labs:
Laboratory Results
02/02/25
06:03
WBC 13.6 H
Hgb 10.0 L
Hct 30.7 L
Plt Count 193
Sodium 137
Potassium 4.2
Chloride 105
Carbon Dioxide 35 H
BUN 28 H
Creatinine 1.1 H
Glucose 162 H
Calcium 8.1 L
Vital Signs:
Vital Signs
Temp Pulse Resp BP Pulse Ox
97.9 F 99 17 151/80 94
02/02/25 07:16 02/02/25 07:16 02/02/25 07:16 02/02/25 07:16 02/02/25 07:16
I&O
02/01/25 02/02/25 02/03/25
06:59 06:59 06:59
Intake Total 1200 / 1200 739 / 739
Output Total 200 / 200
Balance 1000 / 1000 739 / 739
[2025-02-02] MEDS: VITAMIN B1 100 MG PO (07:54)
[2025-02-02] MEDS: DELTASONE 60 MG PO (07:54)
[2025-02-02] MEDS: MYCOSTATIN ORAL SUSPENSION 5 ML PO ×2 (07:54→21:15)
[2025-02-02] MEDS: MUCINEX 1200 MG PO ×2 (07:55→20:54)
[2025-02-02] MEDS: ELIQUIS 5 MG PO ×2 (07:55→20:54)
[2025-02-02] MEDS: VITAMIN B-12 1000 MCG PO (07:55)
[2025-02-02] MEDS: PACERONE 200 MG PO (07:55)
[2025-02-02] MEDS: PROTONIX 40 MG PO ×2 (07:55→20:54)
[2025-02-02] MEDS: TOPROL XL 25 MG PO (07:56)
[2025-02-02] MEDS: OSCAL 500 + D 500 MG PO ×2 (07:56→20:54)
[2025-02-02] MEDS: LASIX 20 MG PO (07:56)
[2025-02-02] MEDS: NOVOLOG FLEXPEN-LOW RESISTANCE 1 UNITS SC (08:59)
--- NOTE | 2025-02-02 09:51 | CM ---
Addendum entered by Shaneka Trinh 02/02/25 10:17:
Correction, Acute rehab was denied. reference # [id number]
Addendum entered by Shaneka Trinh 02/02/25 10:05:
Appeal information sent to [facility], will need updated therapy notes, TT to therapist.
Original Note:
TC from [facility] ([facility])
Skilled rehab denied
[facility] to be called by 2 pm today to P# [phone]
Reference # [id number]
[2025-02-02 11:27] LABS: Glucose - Point of Care 217 mg/dl (70-99)
[2025-02-02] MEDS: MYCOSTATIN ORAL SUSPENSION PO ×2 (11:59→17:48)
[2025-02-02] MEDS: NOVOLOG FLEXPEN-LOW RESISTANCE 2 UNITS SC ×2 (12:02→17:47)
[2025-02-02 17:11] LABS: Glucose - Point of Care 229 mg/dl (70-99)
[2025-02-02] MEDS: TOPROL XL 50 MG PO (20:54)
[2025-02-02] MEDS: ANUSOL HC 25 MG RECTAL (21:15)
[2025-02-02 22:02] LABS: Glucose - Point of Care 211 mg/dl (70-99)
[2025-02-03 03:50] VITALS: BMI 37.9
[2025-02-03 03:51] VITALS: BP 135/75
[2025-02-03] MEDS: SYNTHROID 150 MCG PO (06:30)
[2025-02-03 06:57] LABS: Hematocrit 27.3 % (37.0-47.0); Hemoglobin 9.0 g/dL (12.0-16.0); Mean Corp Hgb Conc. 33.0 g/dL (33.0-37.0); Mean Corpuscular Volume 112.3 fL (81.0-99.0); Platelet Count 194 10^3/uL (130-400); Red Cell Dist. Width 15.8 % (11.5-14.5)
[2025-02-03 07:00] VITALS: BP 132/77
[2025-02-03 07:28] LABS: Blood Urea Nitrogen 26 mg/dl (7-17); Calcium 8.0 mg/dl (8.4-10.2); Chloride 104 mmol/L (98-107); Estimated Creatinine Clearance 50 ml/min; Glucose 146 mg/dl (70-99); Magnesium 2.1 mg/dl (1.6-2.3); Potassium 4.1 mmol/L (3.5-5.1); Sodium 139 mmol/L (135-145); eGFR 50.80
--- NOTE | 2025-02-03 07:36 | W.PN.HOSP.TC ---
Today's Communication/Plan
-
Discharge planning Acute Rehab vs SNF
preparation H prn hemorrhoid pain, cont Anusol HS, sitz bath bid as tolerated/able
Gas-x prn gas discomfort
Glycemic control
cont Metoprolol XL, possible dc monitor tech tomorrow if HR remains stable.
Assessment / Plan
Assessment / Plan
Physical Exam
Genera: NAD appears relatively comfortable at this time. Obese
HEENT: Scleral Anicteric, facial flushing, MMM,No JVD, cottage cheese appearance on tongue
Pulm: clear to auscultation b/l
Cardio: RRR, S1/S2
GI: Soft, NT, ND, BS+
Ext: Warm, Dry
Neuro: AAOx3 conversant coherent
Psych: Calm
79F with PMHX of cholecystectomy, Parkinsons, hypothyroidism, Afib Eliquis, poor ambulatory capacity, came with chills for few days before admission, found shock and hypothermia. Patient had Hx of the same with negative w/u, possibly due to
autonomic dysfunction discharged from at the end of Nov 2024. Also found lower GIB 2/2 bleeding hemorrhoids vs interspinal ischemia due to shock that later resolved. Anemia stable on Eliquis. Hematology evaluated for monoclonal spike seen on
previous admission - outpatient f/u recommended.
#Shock, unclear mechanism, cannot r/o autonomic dysfunction - neurogenic hypotension vs proctitis
#Hypothermia
#Hypothyroidism
#Pre-syncope 2/2 orthostatic hypotension with blurry vision
#Autonomic dysfunction with symptomatic orthostatic hypotension
Random cortisol low, however ACTH neg for adrenal insufficiency. TSH elevated
Started on Hydrocotisone 15mg AM and 5mg PM since on hold d/t high dose steroid tx's as below. Synthroid increased to 150mcg since TSH elevated (improved since increase)
cont midodrine for orthostatic hypotension
Zosyn completed as per ID: CXR - no pneumonia, no signs of UTI with absent pyuria, Bcx NGTD
Warming blanket when symptomatic only (chills, shivering)- since resolved (last low temp 01/27)
Cardiology consult appreciated no significant valvular deficiency, arrhythmia. Recommended abd binder and compression stocking up to the thigh when upright - ordered
#Spinal stenosis with worsening lower back pain
MRI thoracic spine shows no discitis or osteomyelitis. However, 3 focal areas of increased T2 and STIR signal within the thoracic spinal cord, at the T5, superior T7, and T8/T8-9 levels. Etiology for this focal signal intensity abnormality is
uncertain. Main differential considerations of demyelinating lesions, transverse myelitis, and ischemia.
MRI L-spine IMPRESSION: Moderate to severe changes of degenerative disc disease at L4-5 and L5-S1. Since previous MRI of February 09, 2024, development of fluid signal intensity diffusely involving the disc space at L4-5 and involving the anterior
aspect of the disc space at L5-S1. On recent CT scan, vacuum disc phenomenon at L4-5 is evidence against discitis and osteomyelitis. Also, the lack of significant decreased T1-weighted signal within the endplates at L4-5 and L5-S1 is also evidence
against discitis, as well as relatively stable appearance of the endplates on CT scans dating back to November 2024.
LP completed, unable to to repeat not enough fluid
Started on high dose IV Steroids by neuro x 5/5days (completed), long steroid prednisone taper, started at 60 mg daily, dose to be reduced by 10 mg every week (every ).
PT/OT/PMR eval appreciated acute rehab
#Small R kidney lesions, probably cyst
#L adrenal lesion: old hemorrhage or cyst
Repeat outpatient CT in 6mo
#Hx of positive RF and antiCCP Ab
outpatient pharmacogeneticist follow up recommended
#Macrocyticg anemia
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
b12 and folate WNL
Hematology eval appreciated -Low risk MGUS, Repeat HEYDI& SPEP and Serum Light Chains in 3 months, outpt follow up recommended.
#SNOW on CKD stage 3b
resolved
Cr baseline 1.2-1.4
Hydrate
maintain BP
follow Cr
#Parkinsonism with hallucination and dysautonomia
01/26 orthostatics were negative and asymptomatic
As per neurology assessment 05/05/24
Levodopa attempted but developed worsening of orthostasis
Liberalize fluid intake
avoid BP meds
Waist-high stocking, abdominal binder
Steroids as above
Recent MRI brain in Nov 2024 - no acute findings
#Paroxysmal Afib
#Mildly tachy
cont Amiodarone
Eliquis 5 mg BID
Metoprolol XL resumed reduced dose 12.5 mg BID titrated up to 50 mg BID
IV lopressor prn HR>120
monitor on tele
#Hemorrhoids
cont anusol hs
preparation H prn
sitz bath BID as able/tolerated
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
carrier, multiple comorbidities, frequent loose stools and abd discomfort
completed 10 days PO vanc
#01/29 Wheezing (resolved)
-CXR results appreciated mild interstitial cardiogenic pulm edema, cardiomegaly
-BNP elevated 4010
-wheezing however since resolved with scheduled Duonebs de-escalated to PRN 01/30
-limited follow up ECHO 01/30 noted no acute changes from prior ECHO
-home PO Lasix 20 mg daily resumed
#01/29 Suspect oral thrush
Nystatin swish started 7 days 01/29-02/04
DVT ppx Eliquis
Full code
Discussed with patient and patient's daughter Vilma
I spent a total of 40 minutes with the patient or on the floor. More than 50% of this time involved counseling and coordination of care.
Anticipated Discharge: 24 - 48 hours
Subjective/Interval History
-
Date of Service: February 03, 2025
No acute distress, sitting up comfortably in bed. Tolerating diet. Reports pain from hemorrhoids.
Objective Data
-
Labs:
Laboratory Results
02/03/25
06:16
WBC 13.4 H
Hgb 9.0 L
Hct 27.3 L
Plt Count 194
Sodium 139
Potassium 4.1
Chloride 104
Carbon Dioxide Pending
BUN 26 H
Creatinine 1.1 H
Glucose 146 H
Calcium 8.0 L
Vital Signs:
Vital Signs
Temp Pulse Resp BP Pulse Ox
97.2 F 66 19 132/77 94
02/03/25 07:00 02/03/25 07:00 02/03/25 07:00 02/03/25 07:00 02/03/25 07:00
I&O
02/02/25 02/03/25 02/04/25
06:59 06:59 06:59
Intake Total 698 / 739 1080 / 1080
Balance 739 / 734 1080 / 1080
[2025-02-03 08:08] LABS: Carbon Dioxide 40 mmol/L (22-30)
[2025-02-03 08:08] LABS: Glucose - Point of Care 139 mg/dl (70-99)
[2025-02-03] MEDS: NOVOLOG FLEXPEN-LOW RESISTANCE SC (08:10)
[2025-02-03] MEDS: VITAMIN B-12 1000 MCG PO (09:11)
[2025-02-03] MEDS: MUCINEX 1200 MG PO ×2 (09:11→22:02)
[2025-02-03] MEDS: VITAMIN B1 100 MG PO (09:12)
[2025-02-03] MEDS: OSCAL 500 + D 500 MG PO ×2 (09:12→22:03)
[2025-02-03] MEDS: PROTONIX 40 MG PO ×2 (09:12→22:03)
[2025-02-03] MEDS: DELTASONE 60 MG PO (09:13)
[2025-02-03] MEDS: PACERONE 200 MG PO (09:13)
[2025-02-03] MEDS: TOPROL XL 50 MG PO ×2 (09:13→22:03)
[2025-02-03] MEDS: ELIQUIS 5 MG PO ×2 (09:14→22:02)
[2025-02-03] MEDS: LASIX 20 MG PO (09:14)
[2025-02-03] MEDS: MYCOSTATIN ORAL SUSPENSION 5 ML PO ×4 (09:14→22:06)
[2025-02-03] MEDS: DESENEX/MITRAZOL/ZEASORB 1 APPLIC TOPICAL ×2 (09:22→22:02)
[2025-02-03 11:00] VITALS: BP 147/83
[2025-02-03 11:54] LABS: Glucose - Point of Care 179 mg/dl (70-99)
[2025-02-03] MEDS: NOVOLOG FLEXPEN-LOW RESISTANCE 1 UNITS SC (12:06)
[2025-02-03] MEDS: PREPARATION H MAX STRENGTH PAIN RELIEF CREAM 1 APPLIC RECTAL (12:07)
[2025-02-03 15:02] VITALS: BP 139/78
--- NOTE | 2025-02-03 15:23 | PTCARENOTE ---
pt c/o pain from hemorrhoids and intermittent abd discomfort with gas. tolerating diet but appetite poor at times, turns with assist x2, vss, will continue to monitor.
[2025-02-03 17:14] LABS: Glucose - Point of Care 227 mg/dl (70-99)
[2025-02-03] MEDS: NOVOLOG FLEXPEN-LOW RESISTANCE 2 UNITS SC (17:42)
[2025-02-03 20:02] VITALS: BP 133/71
[2025-02-03 21:20] LABS: Glucose - Point of Care 250 mg/dl (70-99)
[2025-02-03] MEDS: ANUSOL HC 25 MG RECTAL (22:06)
[2025-02-03 23:25] VITALS: BP 152/73
[2025-02-04 03:05] VITALS: BP 133/74
[2025-02-04 05:11] VITALS: BMI 38.2
[2025-02-04 06:32] LABS: Hematocrit 28.0 % (37.0-47.0); Hemoglobin 9.1 g/dL (12.0-16.0); Mean Corp Hgb Conc. 32.5 g/dL (33.0-37.0); Mean Corpuscular Volume 112.0 fL (81.0-99.0); Platelet Count 214 10^3/uL (130-400); Red Cell Dist. Width 15.9 % (11.5-14.5)
[2025-02-04] MEDS: SYNTHROID 150 MCG PO (06:34)
[2025-02-04 07:05] VITALS: BP 141/79
[2025-02-04 07:14] LABS: Blood Urea Nitrogen 24 mg/dl (7-17); Calcium 7.9 mg/dl (8.4-10.2); Chloride 101 mmol/L (98-107); Estimated Creatinine Clearance 51 ml/min; Glucose 146 mg/dl (70-99); Magnesium 2.0 mg/dl (1.6-2.3); Potassium 3.6 mmol/L (3.5-5.1); Sodium 138 mmol/L (135-145); eGFR 50.80
[2025-02-04 07:23] LABS: Carbon Dioxide 39 mmol/L (22-30)
[2025-02-04 07:49] LABS: Glucose - Point of Care 155 mg/dl (70-99)
--- NOTE | 2025-02-04 08:36 | W.PN.HOSP.TC ---
Today's Communication/Plan
-
Ok to dc public housing manager
taper midodrine to 5 mg TID
supportive care hemorrhoids, sitz bath if able to tolerate
discharge planning Acute Rehab
glycemic control
Assessment / Plan
Assessment / Plan
Physical Exam
Genera: NAD appears relatively comfortable at this time. Obese
HEENT: Scleral Anicteric, facial flushing, MMM,No JVD, cottage cheese appearance on tongue
Pulm: clear to auscultation b/l
Cardio: RRR, S1/S2
GI: Soft, NT, ND, BS+
Ext: Warm, Dry
Neuro: AAOx3 conversant coherent, numbness lower ext's b/l up to thighs R worse than Left, strength 4/5 b/l lower exts 5/5 Upper ext's.
Psych: Calm
79F with PMHX of cholecystectomy, Parkinsons, hypothyroidism, Afib Eliquis, poor ambulatory capacity, came with chills for few days before admission, found shock and hypothermia. Patient had Hx of the same with negative w/u, possibly due to
autonomic dysfunction discharged from at the end of Nov 2024. Also found lower GIB 2/2 bleeding hemorrhoids vs interspinal ischemia due to shock that later resolved. Anemia stable on Eliquis. Hematology evaluated for monoclonal spike seen on
previous admission - outpatient f/u recommended.
#Shock, unclear mechanism, cannot r/o autonomic dysfunction - neurogenic hypotension vs proctitis
#Hypothermia
#Hypothyroidism
#Pre-syncope 2/2 orthostatic hypotension with blurry vision
#Autonomic dysfunction with symptomatic orthostatic hypotension
Random cortisol low, however ACTH neg for adrenal insufficiency. TSH elevated
Started on Hydrocortisone 15mg AM and 5mg PM since discontinued d/t high dose steroid tx's as below. Synthroid increased to 150mcg since TSH elevated (improved since increase)
cont midodrine for orthostatic hypotension, dose tapered to 5 mg TID given improvement in pressures recent orthostatic vitals neg
Zosyn completed as per ID: CXR - no pneumonia, no signs of UTI with absent pyuria, Bcx NGTD
Warming blanket when symptomatic only (chills, shivering)- since resolved (last low temp 01/27)
Cardiology consult appreciated no significant valvular deficiency, arrhythmia. Recommended abd binder and compression stocking up to the thigh when upright - ordered
#Spinal stenosis with worsening lower back pain
#Possible Multiple Sclerosis vs Clinically Isolated Syndrome vs Transverse Myelitis
MRI thoracic spine shows no discitis or osteomyelitis. However, 3 focal areas of increased T2 and STIR signal within the thoracic spinal cord, at the T5, superior T7, and T8/T8-9 levels. Etiology for this focal signal intensity abnormality is
uncertain. Main differential considerations of demyelinating lesions, transverse myelitis, and ischemia.
MRI L-spine IMPRESSION: Moderate to severe changes of degenerative disc disease at L4-5 and L5-S1. Since previous MRI of February 09, 2024, development of fluid signal intensity diffusely involving the disc space at L4-5 and involving the anterior
aspect of the disc space at L5-S1. On recent CT scan, vacuum disc phenomenon at L4-5 is evidence against discitis and osteomyelitis. Also, the lack of significant decreased T1-weighted signal within the endplates at L4-5 and L5-S1 is also evidence
against discitis, as well as relatively stable appearance of the endplates on CT scans dating back to November 2024.
Difficult LP completed, not enough fluid for all studies ordered
Neuro eval appreciated
Started on high dose IV Steroids as per neuro x 5/5days (completed), long steroid prednisone taper, started at 60 mg daily, dose to be reduced by 10 mg every week (every ).
Autoimmune STAFF COUNSEL Demyelinating Dz screening ab's (send out test) returned neg though false neg's remain possible.
Vit E wnl
Lyme Neg
Copper level mildly low
Methylmalonic acid wnl
PT/OT/PMR eval appreciated acute rehab
#Small R kidney lesions, probably cyst
#L adrenal lesion: old hemorrhage or cyst
Repeat outpatient CT in 6mo
#Hx of positive RF and antiCCP Ab
outpatient anode rebuilder follow up recommended
#Macrocyticg anemia
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
b12 and folate WNL
Hematology eval appreciated -Low risk MGUS, Repeat HEYDI& SPEP and Serum Light Chains in 3 months, outpt follow up recommended.
#SNOW on CKD stage 3b
resolved
Cr baseline 1.2-1.4
Hydrate
maintain BP
follow Cr
#possible Parkinsonism with hallucination and dysautonomia (appears less likely at this time/ruled out)
hallucinations possibly 2/2 metabolic encephalopathy since resolved.
01/26 orthostatics were negative and asymptomatic
As per neurology assessment 05/05/24
Levodopa attempted but developed worsening of orthostasis since discontinued
Recent MRI brain in Nov 2024 - no acute findings
#Paroxysmal Afib
#Mildly tachy
cont Amiodarone
Eliquis 5 mg BID
Metoprolol XL resumed reduced dose 12.5 mg BID titrated up to 50 mg BID
stable HR ok to dc public housing manager.
#Hemorrhoids
cont anusol hs
preparation H prn
sitz bath BID as able/tolerated
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
carrier, multiple comorbidities, frequent loose stools and abd discomfort
completed 10 days PO vanc
#01/29 Wheezing (resolved)
-CXR results appreciated mild interstitial cardiogenic pulm edema, cardiomegaly
-BNP elevated 4010
-wheezing however since resolved with scheduled Duonebs de-escalated to PRN 01/30
-limited follow up ECHO 01/30 noted no acute changes from prior ECHO
-home PO Lasix 20 mg daily resumed
#01/29 Suspect oral thrush
completed 7 days Nystatin swish
DVT ppx Eliquis
Full code
Discussed with patient and patient's daughter Vilma
I spent a total of 40 minutes with the patient or on the floor. More than 50% of this time involved counseling and coordination of care.
Anticipated Discharge: Within 24 hours
Subjective/Interval History
-
Date of Service: February 04, 2025
No acute distress, sitting up comfortably in bed. Overall reports feeling well, tolerating diet. Hemorrhoid discomfort persists, manageable w/ preparation H prn Anusol.
Objective Data
-
Labs:
Laboratory Results
02/04/25
06:19
WBC 12.9 H
Hgb 9.1 L
Hct 28.0 L
Plt Count 214
Sodium 138
Potassium 3.6
Chloride 101
Carbon Dioxide 39 H
BUN 24 H
Creatinine 1.1 H
Glucose 146 H
Calcium 7.9 L
Vital Signs:
Vital Signs
Temp Pulse Resp BP Pulse Ox
97.5 F 75 19 141/79 97
02/04/25 07:05 02/04/25 07:05 02/04/25 07:05 02/04/25 07:05 02/04/25 07:05
I&O
02/03/25 02/04/25 02/05/25
06:59 06:59 06:59
Intake Total 1080 / 1080 900 / 900
Balance 1080 / 1080 900 / 900
[2025-02-04] MEDS: VITAMIN B-12 1000 MCG PO (08:57)
[2025-02-04] MEDS: MYCOSTATIN ORAL SUSPENSION 5 ML PO ×4 (08:57→21:45)
[2025-02-04] MEDS: TOPROL XL 50 MG PO ×2 (08:58→21:44)
[2025-02-04] MEDS: ELIQUIS 5 MG PO ×2 (08:58→21:43)
[2025-02-04] MEDS: LASIX 20 MG PO (08:58)
[2025-02-04] MEDS: OSCAL 500 + D 500 MG PO ×2 (08:58→21:44)
[2025-02-04] MEDS: NOVOLOG FLEXPEN-LOW RESISTANCE 1 UNITS SC ×2 (08:58→13:09)
[2025-02-04] MEDS: MUCINEX 1200 MG PO ×2 (08:58→21:43)
[2025-02-04] MEDS: PROTONIX 40 MG PO ×2 (08:58→21:44)
[2025-02-04] MEDS: PACERONE 200 MG PO (09:05)
[2025-02-04] MEDS: DELTASONE 60 MG PO (09:05)
[2025-02-04] MEDS: VITAMIN B1 100 MG PO (09:05)
[2025-02-04] MEDS: DESENEX/MITRAZOL/ZEASORB 1 APPLIC TOPICAL ×2 (09:06→21:46)
[2025-02-04 11:05] VITALS: BP 128/70
[2025-02-04 11:56] LABS: Glucose - Point of Care 188 mg/dl (70-99)
[2025-02-04 15:05] VITALS: BP 134/78
[2025-02-04 16:41] LABS: Glucose - Point of Care 283 mg/dl (70-99)
[2025-02-04] MEDS: NOVOLOG FLEXPEN-LOW RESISTANCE 3 UNITS SC (17:51)
[2025-02-04] MEDS: ANUSOL HC 25 MG RECTAL (21:45)
[2025-02-04 22:03] LABS: Glucose - Point of Care 255 mg/dl (70-99)
[2025-02-04 23:24] VITALS: BP 136/79
[2025-02-05] MEDS: SYNTHROID 150 MCG PO (05:16)
[2025-02-05 05:24] VITALS: BMI 37.5
[2025-02-05 07:06] LABS: Hematocrit 28.9 % (37.0-47.0); Hemoglobin 9.2 g/dL (12.0-16.0); Mean Corp Hgb Conc. 31.8 g/dL (33.0-37.0); Mean Corpuscular Volume 111.2 fL (81.0-99.0); Platelet Count 231 10^3/uL (130-400); Red Cell Dist. Width 15.7 % (11.5-14.5)
[2025-02-05 07:13] VITALS: BP 129/74
[2025-02-05 07:31] LABS: Blood Urea Nitrogen 25 mg/dl (7-17); Calcium 7.9 mg/dl (8.4-10.2); Chloride 98 mmol/L (98-107); Estimated Creatinine Clearance 61 ml/min; Glucose 165 mg/dl (70-99); Magnesium 1.9 mg/dl (1.6-2.3); Potassium 3.4 mmol/L (3.5-5.1); Sodium 138 mmol/L (135-145); eGFR > 60.00
[2025-02-05 07:55] VITALS: BP 129/74
[2025-02-05 08:03] LABS: Glucose - Point of Care 182 mg/dl (70-99)
[2025-02-05 08:32] LABS: Carbon Dioxide 39 mmol/L (22-30)
[2025-02-05] MEDS: NOVOLOG FLEXPEN-LOW RESISTANCE 1 UNITS SC (08:46)
[2025-02-05] MEDS: VITAMIN B1 100 MG PO (08:52)
[2025-02-05] MEDS: PACERONE 200 MG PO (08:52)
[2025-02-05] MEDS: VITAMIN B-12 1000 MCG PO (08:53)
[2025-02-05] MEDS: ELIQUIS 5 MG PO (08:53)
[2025-02-05] MEDS: OSCAL 500 + D 500 MG PO (08:53)
[2025-02-05] MEDS: TOPROL XL 50 MG PO (08:53)
[2025-02-05] MEDS: LASIX 20 MG PO (08:53)
[2025-02-05] MEDS: PROTONIX 40 MG PO (08:53)
[2025-02-05] MEDS: DELTASONE 60 MG PO (08:53)
[2025-02-05] MEDS: MUCINEX 1200 MG PO (08:53)
[2025-02-05] MEDS: DESENEX/MITRAZOL/ZEASORB 1 APPLIC TOPICAL (08:55)
--- NOTE | 2025-02-05 09:23 | CM ---
CM received voicemail from [facility]
Authorization was approved for [facility]
AUTH APPROVAL #: [id number]
reference #: [id number]
start date 02/02/25-02/08/25
Fax updates to [phone]
CM updated Italia Simmons from [facility] with insurance auth information
Italia stated will need updated PT/OT notes today (they are aware)
Italia will call CM back regarding if bed available today
PLAN: [facility]
Report #: [phone]
Fax #: [phone]
[2025-02-05 10:16] VITALS: BP 124/71; PULSE 71; O2SAT 98
[2025-02-05 10:27] VITALS: BP 124/71; PULSE 68; O2SAT 100
--- NOTE | 2025-02-05 10:55 | W.DCSUMMARY ---
Discharge Summary
Discharge Data
Date of Admission: 01/10/25
Date of Discharge: 02/05/25
Total time spent discharging patient (in min): 31
-
Pending Results: No
Hospital Course
Attending physician on day of discharge:
Katherine Beltran MD
Admission diagnosis:
Hypotension, lower GI bleed, SNOW
Discharge diagnosis:
Autonomic dysfunction with symptomatic orthostatic hypotension
Possible Multiple Sclerosis vs Clinically Isolated Syndrome vs Transverse Myelitis
Secondary diagnoses:
#Shock, unclear mechanism, cannot r/o autonomic dysfunction - neurogenic hypotension vs proctitis
#Hypothermia
#Hypothyroidism
#Pre-syncope 2/2 orthostatic hypotension with blurry vision
#Spinal stenosis with worsening lower back pain
#Small R kidney lesions, probably cyst
#L adrenal lesion: old hemorrhage or cyst
#Hx of positive RF and antiCCP Ab
#Macrocytic anemia
#Monoclonal spike in the gamma region
#SNOW on CKD stage 3b
#possible Parkinsonism with hallucination and dysautonomia (appears less likely at this time/ruled out)
#Paroxysmal Afib
#Mildly tachy
#Hemorrhoids
#C.diff positive carrier- toxin neg - completed 10 days oral vanc
#Suspected oral thrush - completed oral nystain course
Consultations:
Neurology
Heme-onc
PM&R
Procedures:
Lumbar puncture
Hospital course:
79F w/ hypothyroidism, Afib on Eliquis, poor ambulatory capacity, came with chills for few days before admission, found shock and hypothermia. Patient had Hx of the same with negative w/u, possibly due to autonomic dysfunction discharged from at
the end of Nov 2024.
For hypotension, ACTH was negative for adrenal insufficiency, TSH was elevated and Synthroid was increased. Started on Hydrocortisone 15mg AM and 5mg PM since discontinued d/t high dose steroid tx's as below. Synthroid increased to 150mcg since TSH
elevated (improved since increase). Placed on midodrine for orthostatic hypotension, dose tapered to 5 mg TID given improvement in pressures.
Patient was complaining of worsening lower back pain, had MRI thoracic and lumbar spine, which was concerning for possible demyelinating lesions or transverse myelitis. Neuro was consulted, LP was performed, not enough fluid for all studies.
Patient received high-dose IV steroids for 5 days, and long oral steroid taper as below. Autoimmune BANQUET KITCHEN SUPERVISOR Demyelinating Dz screening ab's (send out test) returned neg though false neg's remain possible.
On admit found lower GIB 2/2 bleeding hemorrhoids vs interspinal ischemia due to shock that later resolved. Anemia stable on Eliquis.
Hematology evaluated for monoclonal spike seen on previous admission -low suspicion for MGUS, outpatient f/u recommended.
Physical exam on discharge:
Gen: NAD
HEENT: PERRLA, EOMI, MMM, neck supple
Cards: RRR, no M/G/R
Resp: Lungs CTAB, no W/R/R
GI: soft, NT/ND/NABS
MSK: No edema
Skin: warm and dry, no rash, ulcer or lesions
Heme: No LAD
Psych: Calm
Neuro: AAOx3
Discharge disposition:
Acute Rehab
Discharge Plan
-
Patient Disposition: Acute Rehab Facility
Discharge Diagnosis/Procedures: Shock Hypothermia since resolved
Uncontrolled Hypothyroidism
Autonomic dysfunction with symptomatic orthostatic hypotension since improved
Possible Multiple Sclerosis vs Clinical Isolated Syndrome vs Transverse Myelitis
Spinal stenosis with worsening lower back pain
Small R kidney lesions, probably cyst
L adrenal lesion: old hemorrhage or cyst
History Positive Rheumatoid antibodies
Macrocytic anemia
MGUS
Acute Kidney Injury on Chronic Kidney Disease Stage III
Paroxysmal atrial fibrillation
Hemorrhoids
Oral Thrush resolved
Steroid Induced Hyperglycemia
Obesity
Condition: Fair
Diet: Diabetic, Carb Controlled
Activity: With assistance and As tolerated
Driving Restrictions: Not until seen by your Dr
Blood Work: Repeat CBC and BMP with primary care provider in 1 week of discharge.
Repeat HEYDI& SPEP and Serum Light Chains in 3 months with primary care provider to follow up on MGUS
Others Tests: repeat CT abd/pelvis in 6 months of discharge
Other Services: PT and OT
Activity Restrictions/Additional Instructions:
Follow up with primary care provider in 1 week of discharge. Follow up with Neurology and Rheumatology in 2-4 weeks of discharge.
Preparation H and Anusol have been prescribed as needed for Hemorrhoid pain.
Synthroid has been increased to 150 mcg daily for better control hypothyroidism.
Metformin has been prescribe for steroid induced hyperglycemia (which will continue to improve with taper of steroids). Metformin is also indicated for obesity.
A slow prednisone taper has been prescribe as per neurology recommendation for possible Multiple Sclerosis vs Clinical Isolated Syndrome vs Transverse Myelitis. On Tues take 50 mg daily for 7 days, then reduce the dose by 10 mg every Tues until
complete.
50 mg daily 7 days, then 40 mg daily 7 days, 30 mg daily 7 days, then 20 mg daily 7 days, then 10 mg daily 7 days. Follow up with Neurology before your steroid taper completes in case of need of adjustment or extension of your steroid regimen.
Protonix has been prescribed for GI prophylaxis while on intermodal customer service steroids. Ok to consider discontinuing when off steroids.
Miconazole powder has been prescribed for skin fungal infections.
Referrals:
Bernardino Medrano MD [Active, Neurology] - in two to four weeks
Felice Mccain MD [Active, Rheumatology] - in two to four weeks
Jp Mccabe MD [Family Provider, Internal Medicine] - in one week
Prescriptions:
New
hydrocortisone acetate 25 mg Suppository
25 mg WA HS PRN (Reason: hemorrhoids) Qty: 12 0RF
prednisone 10 mg Tablet
See Rx Instructions .ROUTE .COMPLEX Qty: 105 0RF
Rx Instructions:
Take By Mouth:
50 mg daily x7 days, 40 mg daily x7 days,
30 mg daily x7 days, 20 mg daily x7 days,
10 mg daily x7 days
miconazole nitrate [Miconazorb AF] 2 % Powder
1 applic topical BID Qty: 85 0RF
Rx Instructions:
Skin folds fungal infection
pantoprazole 40 mg Tablet,Delayed Release (Dr/Ec)
40 mg PO DAILY Qty: 30 0RF
levothyroxine 150 mcg Tablet
150 mcg PO DAILY @ 0600 Qty: 30 0RF
Preparation H Maximum Strength 0.25-1 % Cream
1 applic WA Q6HPRN PRN (Reason: hemorrhoid discomfort) Qty: 51 0RF
metoprolol succinate 50 mg Tablet Extended Release 24 Hr
50 mg PO BID Qty: 60 0RF
metformin 500 mg tablet
500 mg PO BIDWMEAL Qty: 60 0RF
Continued
Eliquis 5 MG tablet
5 mg PO BID Qty: 60 11RF
cyanocobalamin (vitamin B-12) 1,000 MCG tablet
1,000 mcg PO DAILY
magnesium oxide 500 MG tablet
500 mg PO DAILY Qty: 30 3RF
amiodarone [Pacerone] 200 MG tablet
200 mg PO DAILY
furosemide 20 mg Tablet
20 mg PO DAILY
gdwiimlzemdn-qmjegvfo-cdasom Tablet
1 tab PO DAILY
Caltrate 600 plus D 600 mg-20 mcg (800 unit) Tablet,Chewable
1 tab PO BID
midodrine 5 mg Tablet
5 mg PO TID@0800,1300,1800 Qty: 90 0RF
thiamine mononitrate (vit B1) 100 mg Tablet
100 mg PO DAILY Qty: 100 0RF
Discontinued
levothyroxine [Levoxyl] 137 mcg Tablet
137 mcg PO DAILY
Discharge Orders:
Discharge Patient (As Directed); Ordered 02/05/25
Ordered By: Katherine Beltran
Discharge Date and Time
Print Language: IRISH
[2025-02-05 11:39] LABS: Glucose - Point of Care 230 mg/dl (70-99)
[2025-02-05 11:52] VITALS: BP 123/69
[2025-02-05] MEDS: NOVOLOG FLEXPEN-LOW RESISTANCE 2 UNITS SC (12:58)
== END 2025-02-05 14:01 | DRG 56 ==
LOC: 3 WEST ACU 18:48
PROVIDERS: Emergency Medicine; Internal Medicine; Nurse Practitioner Adult Health; Nurse Practitioner Family; Nurse Practitioner Gerontology; Psychiatry & Neurology Neurology; Radiology Diagnostic Radiology; Student in an Organized Health Care Education/Training Program; ADMITTING PHYSICIAN Hospitalist; ATTENDING PHYSICIAN Internal Medicine; CONSULT PHYSICIAN Internal Medicine; CONSULT PHYSICIAN Internal Medicine Critical Care Medicine; CONSULT PHYSICIAN Internal Medicine Infectious Disease; CONSULT PHYSICIAN Physical Medicine & Rehabilitation; EMERGENCY PHYSICIAN Student in an Organized Health Care Education/Training Program; FAMILY PHYSICIAN Internal Medicine; OTHER PHYSICIAN Internal Medicine Cardiovascular Disease; OTHER PHYSICIAN Internal Medicine Hematology & Oncology; OTHER PHYSICIAN Psychiatry & Neurology Neurology
PROC: 009U3ZX Drainage of Spinal Canal, Percutaneous Approach, Diagnostic (ICD-10-PCS; 2025-01-24)
PROC: B01B1ZZ Fluoroscopy of Spinal Cord using Low Osmolar Contrast (ICD-10-PCS; 2025-01-24)
DX: G90.3 Multi-system degeneration of the autonomic nervous system (principal); G93.41 Metabolic encephalopathy; K92.2 Gastrointestinal hemorrhage, unspecified; N17.9 Acute kidney failure, unspecified; D62 Acute posthemorrhagic anemia; I42.1 Obstructive hypertrophic cardiomyopathy; B37.0 Candidal stomatitis; G37.3 Acute transverse myelitis in demyelinating disease of central nervous system; R57.9 Shock, unspecified; E11.22 Type 2 diabetes mellitus with diabetic chronic kidney disease; I48.0 Paroxysmal atrial fibrillation; R68.0 Hypothermia, not associated with low environmental temperature; E11.65 Type 2 diabetes mellitus with hyperglycemia; G90.9 Disorder of the autonomic nervous system, unspecified; E86.0 Dehydration; R29.6 Repeated falls; E03.9 Hypothyroidism, unspecified; E78.00 Pure hypercholesterolemia, unspecified; N18.32 Chronic kidney disease, stage 3b; I87.8 Other specified disorders of veins; K64.4 Residual hemorrhoidal skin tags; E66.813 Obesity, class 3; E87.6 Hypokalemia; I87.2 Venous insufficiency (chronic) (peripheral); I89.0 Lymphedema, not elsewhere classified; E27.9 Disorder of adrenal gland, unspecified; D53.9 Nutritional anemia, unspecified; M48.061 Spinal stenosis, lumbar region without neurogenic claudication; G89.29 Other chronic pain; D47.2 Monoclonal gammopathy; N28.1 Cyst of kidney, acquired; I12.9 Hypertensive chronic kidney disease with stage 1 through stage 4 chronic kidney disease, or unspecified chronic kidney disease; M81.0 Age-related osteoporosis without current pathological fracture; M47.812 Spondylosis without myelopathy or radiculopathy, cervical region; I77.819 Aortic ectasia, unspecified site; E53.8 Deficiency of other specified B group vitamins; H53.8 Other visual disturbances; M51.369 Other intervertebral disc degeneration, lumbar region without mention of lumbar back pain or lower extremity pain; M06.9 Rheumatoid arthritis, unspecified; Z96.653 Presence of artificial knee joint, bilateral; Z87.891 Personal history of nicotine dependence; Z90.710 Acquired absence of both cervix and uterus; Z79.01 Long term (current) use of anticoagulants; Z95.810 Presence of automatic (implantable) cardiac defibrillator; Z90.49 Acquired absence of other specified parts of digestive tract; Z86.0100 Personal history of colon polyps, unspecified; Z88.6 Allergy status to analgesic agent; Z88.5 Allergy status to narcotic agent; Z79.899 Other long term (current) drug therapy; Z79.890 Hormone replacement therapy; Z80.0 Family history of malignant neoplasm of digestive organs; Z86.79 Personal history of other diseases of the circulatory system; Z83.3 Family history of diabetes mellitus; Z68.38 Body mass index [BMI] 38.0-38.9, adult
CPT/HCPCS: 62328; 71045; 72146; 72148; 74018; 74176; 80048; 80053; 80202; 81003; 81015; 82525; 82533; 82550; 82607; 82728; 82746; 82784; 82945; 82962; 83010; 83516; 83521; 83540; 83550; 83605; 83615; 83690; 83735; 83880; 83921; 84100; 84157; 84439; 84443; 84446; 84481; 85014; 85018; 85025; 85027; 85045; 85610; 85652; 85730; 86140; 86235; 86780; 86850; 86900; 86901; 87015; 87040; 87070; 87086; 87102; 87116; 87205; 87324; 87389; 87449; 87476; 89051; 93005; 93308; 93321; 93325; 94640; 96360; 97110; 97116; 97163; 97167; 97530; 97535; 99285

== ENCOUNTER 2025-02-09 23:05 | Inpatient (IN) | payer MEDICARE, SELFPAY ==
[2025-02-09] VITALS (9 sets, daily range): BP systolic 88–125; BP diastolic 44–89; PULSE 84–133
--- NOTE | 2025-02-09 16:04 | ED.GENMED ---
History of Present Illness
General
Chief Complaint: Blood Pressure Problem
Source: patient
Exam Limitations: none
Time Seen by Provider: 02/09/25 15:55
History of Present Illness
History of Present Illness:
79-year-old female presents from [facility] with persistently low blood pressure readings at [facility]. She has been in and out of the hospital in and out of rehab. Most recently she was admitted for acute kidney injury and discharged to [facility].
Today her blood pressure was 80 systolic to low to participate in physical therapy. She was brought here for evaluation. She denies any chest pain or shortness of breath. No abdominal pain. There has not been a recent fever. No rash. She is on
5mg of midodrine 3 times a day. She has a history of A-fib on Eliquis.
Past History
Past History
ED Past Medical History: Arrthythmia (V. tach), HTN, Hypercholesterolemia, Hypothyroidism and Other (RA, colon Polyps)
ED Past Surgical History: Cardiac (Pacemaker/defibrillator), Cholecystectomy, Gynecological (Hysterectomy), Orthopedic (bilateral knee replacements) and Other (noncontributory )
Social History
Tobacco: Former smoker (quit 20 years ago)
Alcohol: None
Drug: None
Personal:
Living: with family
Employment: Retired
Family History
Family History: Other (Reviewed and noncontributory)
Phy Exam
Physical Exam
Physical Exam:
General: Well-appearing female no acute respiratory distress
HEENT: Normal cephalic atraumatic pupils equal round react light
Heart: Irregular rate and rhythm
Lungs: Clear no wheeze
Neurologic exam: Alert and oriented no facial asymmetry
Abdomen is soft nontender
Course
Orders/Labs/Results
Orders:
Orders
02/09/25 16:18
Complete Blood Count/With Diff Urgent
Comprehensive Metabolic Panel Urgent
02/09/25 17:16
Electrocardiogram (*1) Urgent
Reason for Study: Syncope
EKG- Treatment ONCE
02/09/25 18:18
Urinalysis Reflex To Culture Urgent
Date Specimen was Collected: 02/09/25
Time Specimen was Collected: 18:14
Urine Microscopic Reflex Cult Urgent
02/09/25 18:25
CR Chest Portable - 1 View Urgent
Comment:
Reason For Exam: weakness
Reason Study Needs to be Portable: Unable to Transport
02/09/25 19:18
COVID-19 Antigen Urgent
Source: Nasal Swab
Influenza A+B Rapid Molecular Urgent
HEATHER Source: Nasal Swab
Specimen Description:
02/09/25 21:45
Procalcitonin Urgent
If negative, will antibiotics be d/c'd or not started: Yes
Does the patient have renal or hepatic impairment?: No
Any recent (w/in 48 hrs) physiologic stress (CPR, rhabdo): No
Abnormal Lab Results
02/09/25 02/09/25
16:18 18:18
WBC 15.9 H 10^3/uL
(4.8-10.8)
RBC 2.79 L 10^6/uL
(4.20-5.40)
Hgb 10.1 L g/dL
(12.0-16.0)
Hct 31.9 L %
(37.0-47.0)
MCV 114.3 H fL
(81.0-99.0)
MCH 36.2 H pg
(27.0-31.0)
MCHC 31.7 L g/dL
(33.0-37.0)
RDW 15.9 H %
(11.5-14.5)
MPV 10.8 H fL
(7.4-10.4)
Abs Immat Gran (auto) 0.2 H 10^3/uL
(0-0.05)
Absolute Neuts (auto) 15.0 H 10^3/uL
(1.4-6.5)
Absolute Lymphs (auto) 0.4 L 10^3/uL
(1.2-3.4)
Immature Gran % 1.0 H %
(0-0.5)
Neutrophils % 94.7 H %
(42.2-75.2)
Lymphocytes % 2.6 L %
(20.5-51.1)
Monocytes % 1.6 L %
(1.7-9.3)
Chloride 95 L mmol/L
(98-107)
Carbon Dioxide 40 H mmol/L
(22-30)
BUN 34 H mg/dl
(7-17)
Creatinine 1.2 H mg/dL
(0.6-1.0)
Glucose 272 H mg/dl
(70-99)
Calcium 8.3 L mg/dl
(8.4-10.2)
Total Bilirubin 2.0 H mg/dl
(0.2-1.3)
ALT 46 H U/L
(0-35)
Total Protein 5.8 L g/dl
(6.3-8.2)
Albumin 3.2 L g/dl
(3.5-5.0)
Urine Bacteria (Reflex) Few A
(Negative)
Urine Yeast Many A
(Negative)
Urine Albumin (Reflex) 1+ A
(Neg - Trace)
02/09/25 16:18
02/09/25 16:18
Vital Signs
Initial and Last Documented VS:
Initial Vital Signs
Pulse Resp BP Pulse Ox
86 18 124/68 96
02/09/25 15:30 02/09/25 15:30 02/09/25 15:30 02/09/25 15:30
Last Documented Vital Signs
Pulse Resp BP Pulse Ox
87 20 123/76 96
02/09/25 18:45 02/09/25 18:45 02/09/25 18:09 02/09/25 16:45
MDM/Problems Addressed
Differential Diagnosis Includes:
[facility]. Will check orthostatics here check blood work.
*Pulse Oximetry
SaO2: 96
Oxygen Mode of Delivery: Room air
Patient hypoxic: no
*Critical Care Note
Total Time (30-74mins, 75-104mins- exclusive of procedures): Not Applicable
ED Attending Note
-
Portions of this chart may have been created with voice recognition software.� Occasional wrong word or��sound alike� substitutions may have occurred due to the inherent limitations of voice recognition software.
Discharge Plan
Departure
Patient Disposition: Admit
Date of Disposition: 02/09/25
Time of Disposition: 21:49
Presentation/result/management discussed w/ accepting MD/DO: Hospitalist
Discharge Problem:
orthostatic hypotension
Prescriptions:
No Action
Eliquis 5 MG tablet
5 mg PO BID Qty: 60 11RF
cyanocobalamin (vitamin B-12) 1,000 MCG tablet
1,000 mcg PO DAILY
magnesium oxide 500 MG tablet
500 mg PO DAILY Qty: 30 3RF
amiodarone [Pacerone] 200 MG tablet
200 mg PO DAILY
furosemide 20 mg Tablet
20 mg PO DAILY
hopiwgknwetb-akwvpnnh-bvqckm Tablet
1 tab PO DAILY
Caltrate 600 plus D 600 mg-20 mcg (800 unit) Tablet,Chewable
1 tab PO BID
midodrine 5 mg Tablet
5 mg PO TID@0800,1300,1800 Qty: 90 0RF
thiamine mononitrate (vit B1) 100 mg Tablet
100 mg PO DAILY Qty: 100 0RF
hydrocortisone acetate 25 mg Suppository
25 mg MN HS PRN (Reason: hemorrhoids) Qty: 12 0RF
prednisone 10 mg Tablet
See Rx Instructions .ROUTE .COMPLEX Qty: 105 0RF
Rx Instructions:
Take By Mouth:
50 mg daily x7 days, 40 mg daily x7 days,
30 mg daily x7 days, 20 mg daily x7 days,
10 mg daily x7 days
miconazole nitrate [Miconazorb AF] 2 % Powder
1 applic topical BID Qty: 85 0RF
Rx Instructions:
Skin folds fungal infection
pantoprazole 40 mg Tablet,Delayed Release (Dr/Ec)
40 mg PO DAILY Qty: 30 0RF
levothyroxine 150 mcg Tablet
150 mcg PO DAILY @ 0600 Qty: 30 0RF
Preparation H Maximum Strength 0.25-1 % Cream
1 applic MN Q6HPRN PRN (Reason: hemorrhoid discomfort) Qty: 51 0RF
metoprolol succinate 50 mg Tablet Extended Release 24 Hr
50 mg PO BID Qty: 60 0RF
metformin 500 mg tablet
500 mg PO BIDWMEAL Qty: 60 0RF
Referrals:
Jp Mccabe MD [Family Provider, Internal Medicine]
Interventions
Interventions:
*Risk Screen - Suicide Last Done: 02/09/25 16:00
*General Assessment Last Done: 02/09/25 16:00
*Neglect/Abuse Screening Last Done: 02/09/25 16:00
[facility] Fall Risk Assessment Tool Last Done: 02/09/25 16:00
ED- Cardiac Assessment Last Done: 02/09/25 16:00
ED- Neurological Assessment Last Done: 02/09/25 16:00
ED- Pulmonary Assessment Last Done: 02/09/25 16:00
Discharge Date and Time
Print Language: SAMI
[2025-02-09 16:27] LABS: Hematocrit 31.9 % (37.0-47.0); Hemoglobin 10.1 g/dL (12.0-16.0); Mean Corp Hgb Conc. 31.7 g/dL (33.0-37.0); Mean Corpuscular Volume 114.3 fL (81.0-99.0); Nucleated Red Blood Cells % 0.1 %; Platelet Count 272 10^3/uL (130-400); Red Cell Dist. Width 15.9 % (11.5-14.5)
[2025-02-09 16:49] LABS: ALT (SGPT) 46 U/L (0-35); AST (SGOT) 31 U/L (14-36); Albumin 3.2 g/dl (3.5-5.0); Alkaline Phosphatase 85 U/L (38-126); Blood Urea Nitrogen 34 mg/dl (7-17); Calcium 8.3 mg/dl (8.4-10.2); Chloride 95 mmol/L (98-107); Glucose 272 mg/dl (70-99); Potassium 4.1 mmol/L (3.5-5.1); Sodium 135 mmol/L (135-145); Total Protein 5.8 g/dl (6.3-8.2); eGFR 45.76
[2025-02-09 17:52] LABS: Carbon Dioxide 40 mmol/L (22-30)
[2025-02-09 18:35] LABS: Urine Character Clear (Clear)
[2025-02-09 19:16] LABS: Urine Red Blood Cell 0-2 /HPF (0-2); Urine Squamous Cell >30 /LPF (Few); Urine White Cell 0-2 /HPF (0-5)
[2025-02-09 19:47] LABS: COVID-19 Antigen Negative (Negative)
--- NOTE | 2025-02-09 21:50 | HPS.HSE ---
Family Physician
-
Family Physician: Jp Mccabe
Chief Complaint
-
Dizziness, Orthostasis
History of Present Illness
Patient is an 79 y/o female with an extensive past medical history including a prolonged hospitalization from Jan 10 to Feb 05 after which she was discharged to [facility]. Today patient was persistently hypotensive despite midodrine and she was
sent to the emergency department for evaluation. Patient reports associated dizziness. She also reports persistent wet cough, but she denies any fevers. Extensive review of records indicate that patient has had many adjustments to her medications
over her multiple hospitalizations. It appears she is now back on Lasix as well as Metoprolol.
Medical History
Past Medical History
Past Medical History: Reports Other
Additional Past Medical History:
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
Parkinsonism with Hallucinations and Dysautonomia
Orthostatic Hypotension
Ventricular Tachycardia s/p ICD
Hypertrophic Obstructive Cardiomyopathy
Paroxysmal Atrial Fibrillation
Steroid Induced Hyperglycemia
Hypothyroidism
CKD Stage IIIB
Rheumatoid Arthritis
Spinal Stenosis
Past Surgical History: Reports Other
Additional Past Surgical History:
Pacemaker / Defibrillator
Cholecystectomy
Hysterectomy
Bilateral Knee Replacement
Social History
Tobacco: Former Smoker (Quit 20 years ago)
Alcohol: None
Drug: None
Personal:
Living: With Family
Employment: Retired
Family History
Family History: Not pertinent
Allergies / Home Medications
Allergies reflects when Allergies were last updated in [employer]
Home Medications with original date entered in [employer]
Allergy/Medication List:
Allergies
Allergy/AdvReac Type Severity Reaction Status Date / Time
celecoxib Allergy stomach Verified 01/10/25 21:41
pains
codeine Allergy nausea/vomi Verified 01/10/25 13:09
ting
Home Medications
apixaban 5 mg tablet (Eliquis) 5 mg PO BID #60 tabs 05/18/17
cyanocobalamin (vitamin B-12) 1,000 mcg tablet 1,000 mcg PO DAILY Supplement 02/19/18
amiodarone 200 mg tablet (Pacerone) 200 mg PO DAILY Arrhythmia 12/23/18
furosemide 20 mg tablet 20 mg PO DAILY Fluid Retention/Swelling 11/21/24
txistunxniqx-fpiyfuze-fpolxo tablet 1 tab PO DAILY Supplement 11/21/24
thiamine mononitrate (vit B1) 100 mg tablet 100 mg PO DAILY #100 tabs 12/01/24
hydrocortisone acetate 25 mg rectal suppository 25 mg MT HS PRN hemorrhoids #12 ea 02/05/25
levothyroxine 150 mcg tablet 150 mcg PO DAILY @ 0600 #30 tabs 02/05/25
miconazole nitrate 2 % topical powder (Miconazorb AF) 1 applic topical BID #85 grams 02/05/25
pantoprazole 40 mg tablet,delayed release 40 mg PO DAILY #30 tabs 02/05/25
phenylephrine 0.25 %-pramoxine 1 %-glycerin-wh.petrolatum rectal cream (Preparation H Maximum Strength) 1 applic MT Q6HPRN PRN hemorrhoid discomfort #51 grams 02/05/25
prednisone 10 mg tablet See Rx Instructions .Route .COMPLEX #105 tabs 02/05/25
magnesium oxide 400 mg PO DAILY 02/09/25
metoprolol succinate 50 mg tablet,extended release 24 hr 50 mg PO DAILY 02/09/25
midodrine 5 mg tablet 10 mg PO TID@0800,1300,1800 02/09/25
Review of Systems
-
History Source: Patient
A 12 point ROS was completed and negative except as noted: Yes
Constitutional: Denies Fever or Chills
Respiratory: Reports Cough; Denies Trouble Breathing
Cardiac: Denies Chest Pain or Palpitations
Abdomen/GI: Denies Abdominal Pain, Nausea, Vomiting, Diarrhea or Constipated
Physical Exam
Vital Signs
Vital Signs
Pulse Resp BP Pulse Ox
87 20 123/76 96
02/09/25 18:45 02/09/25 18:45 02/09/25 18:09 02/09/25 16:45
Physical Exam
General: Comfortable, Conversant and Obese
HEENT: NormoCephalic, Anicteric and Atraumatic
Respiratory: Rhonchi (Left) and Non Labored Respirations
Cardiac: S1/S2 and Irregular Rhythm; No Tachycardia
GI: Soft, Non Tender, Non Distended and Normal Bowel Sounds
Rectal: Deferred by Provider
Musculoskeletal: No Clubbing, No Cyanosis, No Edema and Other (TRACE stockings in place)
Skin: Warm and Dry; No Rash
Neuro: Awake, Alert, Oriented and Nonfocal/grossly intact
Psych: Calm
Laboratory Results
-
02/09/25 16:18
02/09/25 16:18
Laboratory Results
Total Bilirubin 2.0 mg/dl (0.2-1.3) H 02/09/25 16:18
AST 31 U/L (14-36) 02/09/25 16:18
ALT 46 U/L (0-35) H 02/09/25 16:18
Alkaline Phosphatase 85 U/L (38-126) 02/09/25 16:18
Data Reviewed
-
Lab Data: Labs Reviewed by me
Old Records: Reviewed
Impression/Plan
-
Symptomatic Orthostatic Hypotension
-Give 1L NS
-Hold Lasix
-Decreased Toprol from 50mg DAILY to 25mg DAILY
-Continue Midodrine 10mg TID
Cough, suspect bronchitis
-CXR with evidence of atelectasis vs pneumonia, however procalcitonin is negative therefore will hold on antibiotics
-Start Mucinex 600mg BID
-Start DuoNeb QID and PRN
-Encourage use of incentive spirometer
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
-Continue prednisone taper (currently on 50mg Daily)
-Consult PT/OT
Ventricular Tachycardia s/p ICD
-Continue amiodarone
Paroxysmal Atrial Fibrillation
-Continue Eliquis
-Continue amiodarone
-Decreased Toprol dose as above
Hypertrophic Obstructive Cardiomyopathy
-Lasix on hold as above
-Monitor Is&Os and Daily Weights
Steroid Induced Hyperglycemia
-HgbA1c 4.8 in Feb 2025
-Continue Januvia
-Monitor sugars and continue coverage insulin
Hypothyroidism
-Continue levothyroxine
CKD Stage IIIB
-Creatinine at baseline
DVT proph: Eliquis
Code Status: Full Code
--- NOTE | 2025-02-09 21:52 | W.PN.UPDATE ---
Update Note
Progress Note Update
This note serves as an addendum to the H&P by motor generator set operator Jasmyn SALGUERO
HPI
79F sent in from [facility] for hypotension.
PMHX: V. tach, Pacemaker/defibrillator implant, Midodrine dependent hypotension, HX A Fib, chr Eliquis, pHTN, HLD, Hypothyroidism and RA.
- HX of frequent admission and to and fro between hospital and rehab
- recently she was admitted for SNOW and discharged to [facility].
- Today SBP was as low as 80 and unable to participate in PT
- Currently on 5mg of midodrine tid
- She was brought to ER for for evaluation.
ROS:
- denies any chest pain or shortness of breath.
- No abdominal pain.
- No fever
Relevant VS
Pulse Resp BP Pulse Ox
87 20 123/76 96
02/09/25 18:45 02/09/25 18:45 02/09/25 18:09 02/09/25 16:45
PE
Gen: Obese
HEENT: anicteric
Neck: supple
Lungs: Lt basilar rales
Cor:RRR S1 S2
Abdomen:�Obese
AIRCRAFT SHIPPING CHECKER:AAO3 NFND
Psych:Nl mood and affect
Relevant Data
02/06/25 02/08/25 02/09/25
07:50 07:00 16:18
WBC 14.1 H 15.9 H
Hgb 9.2 L 10.1 L
Chloride 95 L
Carbon Dioxide 41 H 42 H 40 H
BUN 31 H 34 H
Creatinine 1.0 1.1 H 1.2 H
eGFR 56.95 50.80 45.76
Total Bilirubin 2.0 H
AST 31
ALT 46 H
Alkaline Phosphatase 85
Albumin 3.2 L
Procalcitonin Pending
02/08/25 02/09/25
07:00 16:18
Carbon Dioxide 42 H 40 H
BUN 31 H 34 H
Creatinine 1.1 H 1.2 H
eGFR 50.80 45.76
02/09/25
21:51
Procalcitonin < 0.05
CXR:
Mild left basilar atelectasis and/or pneumonia.
Last hospitalist admission: 01/10/25 -02/05/25
PDX:
Hypotension, lower GI bleed, SNOW
Autonomic dysfunction with symptomatic orthostatic hypotension
Possible Multiple Sclerosis vs Clinically Isolated Syndrome vs Transverse Myelitis
ASSESSMENT & PLAN
CXR suggest new mild left basilar atelectasis and/or PNA with moist cough
- Hi WCC due to steroids +/_ acute infective process like PNA
- NEG PCT
- Hold ABx for now
Acute on chr hypotension suspect multifactorial: acute infective process _ relative adrenal insufficiency with tapering dose of PO prednisone
HX autonomic dysfunction with symptomatic orthostatic hypotension
- Hold PO lasix
- Decreased Metoprol XL to [address] of 50mg daily
- Empiric IV NS 1 L
- Observe on Midodrine on 10mg TID which was just increased
- NEG w/u for adrenal insufficiency on last admission
- Prior Cardiology consult appreciated no significant valvular deficiency, arrhythmia.
- abd binder and compression stocking up to the thigh when upright
HX possible MS vs. Clinically isolated Syndrome vs Transverse Myelitis
- Spinal stenosis with worsening lower back pain
- 01/22/25 MRI thoracic spine with 3 focal areas of increased T2 and STIR signal within the THx spinal cord, at the T5, superior T7, and T8/T8-9 levels.
Etiology for this focal signal intensity abnormality is uncertain. DDX: demyelinating lesions, transverse myelitis, and ischemia.
- On last admission s/p high dose IV Steroids as per neuro x completed 5/5days and suggest long steroid prednisone taper, started at 60 mg daily, dose to be reduced by 10 mg every Tues.
- [employer] AIRCRAFT SHIPPING CHECKER Demyelinating Dz screening ab's (send out test) returned neg though false neg's remain possible.
- Vit E wnl
- Lyme Neg
- Copper level mildly low
- Methylmalonic acid WNL
- PT/OT/PMR eval
Stable hypercarbia due to Steroids
- clinically doubt CO2 retention
- Trend HCO3
Stable CKD stage 3b
resolved
Cr baseline 1.2-1.4
Hydrate
maintain BP
follow Cr
Known Small R kidney lesions- probably cyst
L adrenal lesion: old hemorrhage or cyst
HX positive RF and anti CCP Ab
- outpatient campaign developer follow up recommended
Macrocytic anemia
- Monoclonal spike in the gamma region - in Nov 2024
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
- Recent Bb12 and folate WNL
- Per Hematology eval appreciated -Low risk MGUS, to repeat HEYDI& SPEP and Serum Light Chains in 3 months and OP follow up recommended.
HX Paroxysmal Afib
- c/w SUPERVISOR BENZENE REFINING Amiodarone
- c/w SUPERVISOR BENZENE REFINING Eliquis 5 mg BID
Metoprolol XL resumed reduced dose 12.5 mg BID titrated up to 50 mg BID
stable HR ok to dc registered nurse cardiac telemetry.
HX Hemorrhoids
- c/w Anusol hs
- preparation H prn
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
multiple comorbidities, frequent loose stools and abd discomfort
s/p completed 10 days PO Vanco on last admission
DVT Px- SUPERVISOR BENZENE REFINING Eliquis
Full code
IP TLM
[2025-02-09 22:27] LABS: Procalcitonin < 0.05 ng/ml (0.0-0.25)
[2025-02-09] MEDS: NSS 1000 IV (22:48)
--- NOTE | 2025-02-09 23:15 | PTCARENOTE ---
Pt arrived to [facility] west from ED, pullover assist x3 from stretcher into bed. AAOx3, bed alarm in place, call jeronimo in reach. Plan of care reviewed with pt.
[2025-02-10] VITALS (10 sets, daily range): BP systolic 98–156; BP diastolic 58–86; PULSE 78–115; BMI 35.6; BMI 35.8
[2025-02-10 00:08] LABS: Glucose - Point of Care 223 mg/dl (70-99)
[2025-02-10] MEDS: SYNTHROID 150 MCG PO (05:52)
[2025-02-10] MEDS: DUONEB 3 ML INH ×4 (07:36→20:05)
[2025-02-10 08:31] LABS: Glucose - Point of Care 114 mg/dl (70-99)
[2025-02-10] MEDS: NOVOLOG FLEXPEN-MODERATE RESISTANCE SC ×2 (09:23→12:21)
[2025-02-10] MEDS: PROTONIX 40 MG PO (09:24)
[2025-02-10] MEDS: TOPROL XL 25 MG PO (09:24)
[2025-02-10] MEDS: ELIQUIS 5 MG PO ×2 (09:24→20:39)
[2025-02-10] MEDS: MUCINEX 600 MG PO ×2 (09:24→20:39)
[2025-02-10] MEDS: PACERONE 200 MG PO (09:24)
--- NOTE | 2025-02-10 11:34 | CON.NEURO4 ---
Consultation - Neurology 4
-
CONSULTING PHYSICIAN: Dr. John Chaudhry
REFERRING PHYSICIAN: Dr. Aaron Camacho
DICTATED BY: Dr. John Chaudhry
DATE/TIME OF REQUEST: 02/10/2025
DATE/TIME OF CONSULTATION: 02/10/2025
Reason for Consultation: Orthostatic hypotension
ASSESSMENT AND PLAN:
Patient is an 79 y/o female with an extensive past medical history of atrial fibrillation on Eliquis, hypothyroidism, status post ICD implantation and midodrine dependent hypertension, who after a prolonged hospitalization from Jan 10 to Feb 05,
was discharged to [facility]. The patient was persistently hypotensive despite midodrine and she was sent to the emergency department for evaluation.
. The dose of midodrine has been increased from 5 mg 3 times a day to 10 mg of midodrine 3 times daily.
. Lasix has been stopped.
. The dose of metoprolol XL has been decreased to [address] of 50 mg daily.
. The patient is recommended to use compression stockings up to thigh and abdominal binder when upright. There is a concern about possible MS versus clinically isolated syndrome versus osteomyelitis.
. 01/22/25 MRI thoracic spine with 3 focal areas of increased T2 and STIR signal within the thoracic spinal cord, at the T5, superior T7, and T8/T8-9 levels. Etiology for this focal signal intensity abnormality is uncertain. Main differential
considerations include demyelinating lesions, transverse myelitis, and ischemia.
. On last admission s/p high dose IV Steroids as per neuro x completed 5/5days and suggested long steroid prednisone taper, started at 60 mg daily, the prednisone taper will continue (currently on 50 mg daily). She is also on Protonix 40 mg daily.
. The patient likely has steroid induced hyperglycemia and leukocytosis.
. Atrial fibrillation. Continue Eliquis
. Check orthostatic vitals Q8H.
History of Present Illness:
Patient is an 79 y/o female with an extensive past medical history of atrial fibrillation on Eliquis, hypothyroidism, status post ICD implantation and midodrine dependent hypertension, who after a prolonged hospitalization from Jan 10 to Feb 05,
was discharged to [facility]. The patient was persistently hypotensive despite midodrine and she was sent to the emergency department for evaluation. Patient reports associated dizziness. She also reports persistent wet cough, but she denies any
fevers. Extensive review of records indicate that patient has had many adjustments to her medications over her multiple hospitalizations.
Past Medical History:
Orthostatic Hypotension
Ventricular Tachycardia s/p ICD
Hypertrophic Obstructive Cardiomyopathy
Paroxysmal Atrial Fibrillation
Steroid Induced Hyperglycemia
Hypothyroidism
CKD Stage IIIB
Rheumatoid Arthritis
Review of Systems:
The 10 point review systems were negative aside from as given the above history of present illness.
Neurologic Examination:
Alert and oriented x 3,
Speech is clear,
The cranial nerves II to XII are grossly intact,
The patient has antigravity strength in bilateral upper and lower extremities,
Sensation are intact bilaterally,
The cerebellar examination does not show limb ataxia
Vital Signs and Labs
-
Vital Signs and Labs:
Vital Signs
Temp Pulse Resp BP Pulse Ox
36.4 C 82 16 128/76 99
02/10/25 07:49 02/10/25 07:49 02/10/25 07:49 02/10/25 07:49 02/10/25 07:49
Sodium 135 mmol/L (135-145) 02/09/25 16:18
Potassium 4.1 mmol/L (3.5-5.1) 02/09/25 16:18
BUN 34 mg/dl (7-17) H 02/09/25 16:18
Glucose 272 mg/dl (70-99) H 02/09/25 16:18
Calcium 8.3 mg/dl (8.4-10.2) L 02/09/25 16:18
Medications
-
Active Medications
Generic Name Dose Route Start Last Admin
Trade Name Freq PRN Reason Stop Dose Admin
Acetaminophen 650 mg 02/09/25 23:50
Acetaminophen 325 Mg Tablet PO 03/09/25 23:49
Q4HPRN PRN
mild pain/ fever>100.5F
Albuterol/Ipratropium 3 ml 02/09/25 23:50
Ipratropium 0.5/Albuterol 3 Mg (3 Ml Ampul) INH
R Q4HPRN PRN
shortness of breath/wheeze
Protocol
Albuterol/Ipratropium 3 ml 02/10/25 08:00 02/10/25 07:36
Ipratropium 0.5/Albuterol 3 Mg (3 Ml Ampul) INH 3 ml
R QID CHAO Administration
Protocol
Amiodarone HCl 200 mg 02/10/25 08:00 02/10/25 09:24
Amiodarone 200 Mg Tablet PO 03/10/25 07:59 200 mg
DAILY CHAO Administration
Apixaban 5 mg 02/10/25 08:00 02/10/25 09:24
Apixaban (Eliquis) 5 Mg Tablet PO 03/10/25 07:59 5 mg
BID CHAO Administration
Dextrose 12.5 grams 02/09/25 23:50
Dextrose 50% (0.5 Grams/Ml) 50 Ml Syringe IV 03/09/25 23:49
[id number] PRN
hypoglycemia
Protocol
Glucagon 1 mg 02/09/25 23:50
Glucagon 1 Mg Vial IM 03/09/25 23:49
PRN PRN
hypoglycemia
Protocol
Guaifenesin 600 mg 02/10/25 08:00 02/10/25 09:24
Guaifenesin 600 Mg Extended Release Tablet PO 03/10/25 07:59 600 mg
Q12 CHAO Administration
Lactated Ringer's 1,000 mls @ 0 mls/hr 02/10/25 11:22
Lr IV 02/10/25 11:23
BOLUS ONE
As Directed
Insulin Aspart 0 units 02/10/25 07:30 02/10/25 09:23
Insulin Aspart Moderate Resistance 300 Units/3 Ml Pen.Injctr SC 03/10/25 07:29 Not Given
AC CHAO
Protocol
Levothyroxine Sodium 150 mcg 02/10/25 06:00 02/10/25 05:52
Levothyroxine 150 Mcg Tablet PO 03/10/25 05:59 150 mcg
DAILY @ 0600 CHAO Administration
Metoprolol Succinate 12.5 mg 02/10/25 11:23
Metoprolol 25 Mg Extended Release Tablet PO 03/10/25 07:59
DAILY CHAO
Midodrine 10 mg 02/10/25 08:00 02/10/25 09:24
Midodrine 5 Mg Tablet PO 03/10/25 07:59 10 mg
TID@0800,1300,1800 CHAO Administration
Pantoprazole Sodium 40 mg 02/10/25 08:00 02/10/25 09:24
Pantoprazole 40 Mg Delayed Release Tablet PO 03/10/25 07:59 40 mg
DAILY CHAO Administration
Sodium Chloride 0 flush 02/09/25 23:00
Sodium Chloride 0.9% (Flush) Syringe IV 03/09/25 22:59
PER PROTOCOL CHAO
Wh Jayson/Min Oil/Pramoxine/Phenyleph 0 applic 02/10/25 11:18
Preparation H Max Strength Pain Relief Cream RECTAL 03/10/25 11:17
Q6HPRN PRN
hemorrhoids
Home Medications
�Medication �Instructions �Recorded
apixaban 5 mg tablet (Eliquis) 5 mg PO BID #60 tabs 05/18/17
cyanocobalamin (vitamin B-12) 1,000 mcg PO DAILY Supplement 02/19/18
1,000 mcg tablet
amiodarone 200 mg tablet (Pacerone) 200 mg PO DAILY Arrhythmia 12/23/18
furosemide 20 mg tablet 20 mg PO DAILY Fluid 11/21/24
Retention/Swelling
trvytuigvejf-jqqleyax-convud tablet 1 tab PO DAILY Supplement 11/21/24
thiamine mononitrate (vit B1) 100 100 mg PO DAILY #100 tabs 12/01/24
mg tablet
hydrocortisone acetate 25 mg 25 mg SD HS PRN hemorrhoids #12 ea 02/05/25
rectal suppository
levothyroxine 150 mcg tablet 150 mcg PO DAILY @ 0600 #30 tabs 02/05/25
miconazole nitrate 2 % topical 1 applic topical BID #85 grams 02/05/25
powder (Miconazorb AF)
pantoprazole 40 mg tablet,delayed 40 mg PO DAILY #30 tabs 02/05/25
release
phenylephrine 0.25 %-pramoxine 1 1 applic SD Q6HPRN PRN hemorrhoid 02/05/25
%-glycerin-wh.petrolatum rectal discomfort #51 grams
cream (Preparation H Maximum
Strength)
prednisone 10 mg tablet See Rx Instructions .Route 02/05/25
.COMPLEX #105 tabs
magnesium oxide 400 mg PO DAILY 02/09/25
metoprolol succinate 50 mg 50 mg PO DAILY 02/09/25
tablet,extended release 24 hr
midodrine 5 mg tablet 10 mg PO TID@0800,1300,1800 02/09/25
potassium 02/10/25
[2025-02-10] MEDS: LR 1000 IV (12:11)
[2025-02-10 12:13] LABS: Glucose - Point of Care 145 mg/dl (70-99)
[2025-02-10 12:32] LABS: Hematocrit 29.6 % (37.0-47.0); Hemoglobin 9.1 g/dL (12.0-16.0); Mean Corp Hgb Conc. 30.7 g/dL (33.0-37.0); Mean Corpuscular Volume 114.7 fL (81.0-99.0); Platelet Count 244 10^3/uL (130-400); Red Cell Dist. Width 16.0 % (11.5-14.5)
[2025-02-10 12:57] LABS: Blood Urea Nitrogen 32 mg/dl (7-17); Calcium 8.1 mg/dl (8.4-10.2); Carbon Dioxide 35 mmol/L (22-30); Chloride 99 mmol/L (98-107); Estimated Creatinine Clearance 49 ml/min; Glucose 123 mg/dl (70-99); Magnesium 1.9 mg/dl (1.6-2.3); Potassium 3.9 mmol/L (3.5-5.1); Sodium 138 mmol/L (135-145); eGFR 50.80
--- NOTE | 2025-02-10 14:13 | W.PN.HOSP.TC ---
Today's Communication/Plan
-
reduce BB
TRACE stockings
may need to increase midodrine
Monitor HR, BP
Assessment / Plan
Assessment / Plan
Physical Exam
General: Comfortable, Conversant and Obese
HEENT: NormoCephalic, Anicteric and Atraumatic
Respiratory: Rhonchi (Left) and Non Labored Respirations
Cardiac: S1/S2 and Irregular Rhythm; No Tachycardia
GI: Soft, Non Tender, Non Distended and Normal Bowel Sounds
Rectal: Deferred by Provider
Musculoskeletal: No Clubbing, No Cyanosis, No Edema and Other (TRACE stockings in place)
Skin: Warm and Dry; No Rash
Neuro: Awake, Alert, Oriented and Nonfocal/grossly intact
Psych: Calm
Symptomatic Orthostatic Hypotension, chronic issue
-S/p IVF
-Stop lasix - may need to reduce dose
-Neurology consulted
-TRACE stockings; patient has had issues with abd binder in the past and hesistant on use
-Decreased Toprol from 50mg DAILY to 25mg DAILY
-Continue Midodrine 10mg TID - may need to titrate up
-UA negative - no obvious infectious source
Cough, suspect bronchitis
-CXR with evidence of atelectasis vs pneumonia, however procalcitonin is negative therefore will hold on antibiotics
-Start Mucinex 600mg BID
-Start DuoNeb QID and PRN
-Encourage use of incentive spirometer
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
-Continue prednisone taper (currently on 50mg Daily)
-Consult PT/OT
Ventricular Tachycardia s/p ICD
-Continue amiodarone
Paroxysmal Atrial Fibrillation
-Continue Eliquis
-Continue amiodarone
-Decreased Toprol dose as above - if unable to control and BPs remain soft- may need to stop AV kendra blockade
Hypertrophic Obstructive Cardiomyopathy
-Lasix on hold as above
-Monitor Is&Os and Daily Weights
-on BB
Steroid Induced Hyperglycemia and Leukocytosis
-HgbA1c 4.8 in Feb 2025
-Continue Januvia
-Monitor sugars and continue coverage insulin
Hypothyroidism
-Continue levothyroxine
TSH .74 appx 2 weeks ago
CKD Stage IIIB
-Creatinine at baseline
#Hemorrhoids
-hgb stable
-prep H suppository
DVT proph: Eliquis
Code Status: Full Code
Anticipated Discharge: 24 - 48 hours
Subjective/Interval History
-
Date of Service: February 10, 2025
Still lightheaded
Objective Data
-
Labs:
Laboratory Results
02/10/25
12:00
WBC 16.1 H
Hgb 9.1 L
Hct 29.6 L
Plt Count 244
Sodium 138
Potassium 3.9
Chloride 99
Carbon Dioxide 35 H
BUN 32 H
Creatinine 1.1 H
Glucose 123 H
Calcium 8.1 L
Vital Signs:
Vital Signs
Temp Pulse Resp BP Pulse Ox
97.8 F 115 18 98/65 98
02/10/25 11:49 02/10/25 14:09 02/10/25 11:49 02/10/25 14:09 02/10/25 11:49
I&O
02/09/25 02/10/25 02/11/25
06:59 06:59 06:59
Intake Total 1240 / 1240
Output Total 525 / 525
Balance 715 / 715
Review of Systems
-
History Source: Patient
All other systems: Not reviewed unless documented
Physical Exam
-
General: No Apparent Distress
HEENT: Moist Mucous Membranes, Anicteric and PERRLA
Respiratory: Clear to Auscultation; Negative Wheezes, Rales or Rhonchi
Cardiac: Regular Rhythm and S1/S2; Negative Murmur, Rub or Gallop
GI: Soft, Nontender, Nondistended and Normal Bowel Sounds
Musculoskeletal: No Edema
Skin: Warm and Dry; Negative Rash, Ulcers or Lesions
Neuro: Awake and AO x 3
Hematologic / Lymphatic: No Lymphadenopathy
Psych: Calm
Data Reviewed
-
MRI: Report Reviewed by me
Labs: Labs Reviewed by me
[2025-02-10 17:01] LABS: Glucose - Point of Care 186 mg/dl (70-99)
[2025-02-10] MEDS: NOVOLOG FLEXPEN-MODERATE RESISTANCE 1 UNITS SC (17:06)
[2025-02-10] MEDS: PREPARATION H MAX STRENGTH PAIN RELIEF CREAM 1 APPLIC RECTAL (20:42)
--- NOTE | 2025-02-10 21:00 | PTCARENOTE ---
Pt's HR increased from 80s-90s afib to 120s-130s afib after being turned in bed. Pt reports being asymptomatic, just that 'I'm very frustrated, that's all'. BP checked at this time: 121/67. COMPLIANCE PROJECT MANAGER notified, asked RN to check rectal temp which was
99.3F, COMPLIANCE PROJECT MANAGER asked RN to check apical pulse which was 110. Pt's HR remaining in 120s-130s afib, asymptomatic. COMPLIANCE PROJECT MANAGER notified of continued elevated HR; COMPLIANCE PROJECT MANAGER ordered 1x IV Lopressor 2.5mg, 1x IV NSS bolus 250mL, and pt was provided with PRN tylenol 650mg.
Pt's HR decreased back to 90s/low 100s afib. Pt resting comfortably in bed.
[2025-02-10 21:42] LABS: Glucose - Point of Care 214 mg/dl (70-99)
--- NOTE | 2025-02-10 22:35 | W.PN.UPDATE ---
Update Note
Progress Note Update
RN reported, while changing and turning her patient's HR went up to 120 Afib. BP 121/67.
Patient seen and evaluated. Ox3, little frustrated for being here. denies any chest pain, shortness of breath. Denies fever, chills
Lungs rhonchi, encouraged to cough, diminished. HR irregular + BS, stated she just voided.
HR noted to be in 115-140's, mostly above 130's. BP 108/60 99.3
labs, NSS 250 bolus, Metoprolol 2.5mg IVx1
HR 90's-105
K 3.2, KCL 40meq PO x1
[2025-02-10] MEDS: NSS 250 IV (22:37)
[2025-02-10] MEDS: TYLENOL 650 MG PO (22:38)
[2025-02-10] MEDS: LOPRESSOR 2.5 MG IV (22:38)
[2025-02-11] VITALS (7 sets, daily range): BP systolic 90–143; BP diastolic 58–99; PULSE 81–103; BMI 36.4
[2025-02-11 00:43] LABS: Blood Urea Nitrogen 33 mg/dl (7-17); Calcium 7.9 mg/dl (8.4-10.2); Carbon Dioxide 34 mmol/L (22-30); Chloride 101 mmol/L (98-107); Estimated Creatinine Clearance 49 ml/min; Glucose 165 mg/dl (70-99); Magnesium 1.8 mg/dl (1.6-2.3); Potassium 3.2 mmol/L (3.5-5.1); Sodium 137 mmol/L (135-145); eGFR 50.80
[2025-02-11 00:56] LABS: Hematocrit 27.6 % (37.0-47.0); Hemoglobin 8.5 g/dL (12.0-16.0); Mean Corp Hgb Conc. 30.8 g/dL (33.0-37.0); Mean Corpuscular Volume 114.0 fL (81.0-99.0); Platelet Count 210 10^3/uL (130-400); Red Cell Dist. Width 16.2 % (11.5-14.5)
[2025-02-11] MEDS: KCL 40 MEQ PO (01:24)
--- NOTE | 2025-02-11 01:30 | PTCARENOTE ---
PARTY COORDINATOR ordered stat BMP, CBC and mag. Potassium level this AM is 3.2; PARTY COORDINATOR Jonathan notified and order placed for stat PO potassium 40 mmEq.
[2025-02-11] MEDS: SYNTHROID 150 MCG PO (05:35)
[2025-02-11] MEDS: DUONEB 3 ML INH ×4 (07:20→19:38)
[2025-02-11] MEDS: NOVOLOG FLEXPEN-MODERATE RESISTANCE SC ×2 (08:16→12:16)
[2025-02-11 08:17] LABS: Glucose - Point of Care 131 mg/dl (70-99)
[2025-02-11] MEDS: ELIQUIS 5 MG PO ×2 (08:17→19:44)
[2025-02-11] MEDS: PROTONIX 40 MG PO (08:17)
[2025-02-11] MEDS: MUCINEX 600 MG PO ×2 (08:17→19:44)
[2025-02-11] MEDS: PACERONE 200 MG PO (08:17)
--- NOTE | 2025-02-11 09:58 | CON.CAR ---
Consultation
Consultation Request
Date/Time Consultation Requested: 02/11/2025 at 8 AM
Date/Time Consultation Performed: 02/11/2025 at 10 AM
Requesting Provider: Dr. Camacho
Performing Provider: Kamran Robles MD
Reason for Consultation: Orthostasis
Medical History
-
Chief Complaint: Dizziness, weakness
History of Present Illness:
Complex 79-year-old woman admitted to [facility] 01/10/2025-02/05/2025 with autonomic dysfunction, symptomatic orthostatic hypotension, possible multiple sclerosis versus transverse, with clinical shock, hypothermia, hypothyroidism and
presyncope., Ultimately started on high-dose steroids and transferred to [place], prednisone was to be 50 mg a day and tapered by 10 mg every 7 days myelitis. Patient sent back to acute care February 09 related to persistent hypotension.
Past Medical History
Past Medical History: Arrhythmias (Paroxysmal atrial fibrillation, history of VT status post ICD), HTN, Hypothyroidism, NIDDM and Other (Hypertrophic cardiomyopathy, Parkinson's disease, rheumatoid arthritis, dysautonomia, spinal stenosis, possible
adrenal insufficiency, orthostasis, anemia, history of hypothermia, possible transverse myelitis versus multiple sclerosis, history of rectal bleeding, class II obesity)
Past Surgical History: Cholecystectomy, Orthopedic (Bilateral total knees, carpal tunnel, left foot surgery) and Tonsilectomy
Social History
Tobacco: Former Smoker
Alcohol: None
Drug: None
Living: With Family
Family History
Family History: Reviewed & Not Pertinent
Allergies / Home Medications
Allergy/AdvReac Type Severity Reaction Status Date / Time
celecoxib Allergy stomach Verified 01/10/25 21:41
pains
codeine Allergy nausea/vomi Verified 01/10/25 13:09
ting
�Medication �Instructions �Recorded �Confirmed �Type
apixaban 5 mg tablet (Eliquis) 5 mg PO BID #60 tabs 05/18/17 02/10/25 Rx
cyanocobalamin (vitamin B-12) 1,000 mcg PO DAILY Supplement 02/19/18 02/10/25 History
1,000 mcg tablet
amiodarone 200 mg tablet (Pacerone) 200 mg PO DAILY Arrhythmia 12/23/18 02/10/25 History
furosemide 20 mg tablet 20 mg PO DAILY Fluid 11/21/24 02/10/25 History
Retention/Swelling
yalquvaixlfv-ajhfbjee-klwcvb tablet 1 tab PO DAILY Supplement 11/21/24 02/10/25 History
thiamine mononitrate (vit B1) 100 100 mg PO DAILY #100 tabs 12/01/24 02/10/25 Rx
mg tablet
hydrocortisone acetate 25 mg 25 mg [place] HS PRN hemorrhoids #12 ea 02/05/25 02/09/25 Rx
rectal suppository
levothyroxine 150 mcg tablet 150 mcg PO DAILY @ 0600 #30 tabs 02/05/25 02/10/25 Rx
miconazole nitrate 2 % topical 1 applic topical BID #85 grams 02/05/25 02/10/25 Rx
powder (Miconazorb AF)
pantoprazole 40 mg tablet,delayed 40 mg PO DAILY #30 tabs 02/05/25 02/10/25 Rx
release
phenylephrine 0.25 %-pramoxine 1 1 applic WV Q6HPRN PRN hemorrhoid 02/05/25 02/09/25 Rx
%-glycerin-wh.petrolatum rectal discomfort #51 grams
cream (Preparation H Maximum
Strength)
prednisone 10 mg tablet See Rx Instructions .Route 02/05/25 02/10/25 Rx
.COMPLEX #105 tabs
magnesium oxide 400 mg PO DAILY 02/09/25 02/10/25 History
metoprolol succinate 50 mg 50 mg PO DAILY 02/09/25 02/10/25 History
tablet,extended release 24 hr
midodrine 5 mg tablet 10 mg PO TID@0800,1300,1800 02/09/25 02/10/25 History
potassium 02/10/25 History
Review of Systems
-
All other systems: Negative unless noted
Physical Exam
Vital Signs
Temp Pulse Resp BP Pulse Ox
36.6 C 100 18 92/52 92
02/11/25 08:15 02/11/25 08:22 02/11/25 08:22 02/11/25 08:16 02/11/25 08:22
Physical Exam
General: Other (Chronically ill-appearing)
HEENT: Normocephalic
Respiratory: Clear
Cardiac: Murmur (Potentially consistent with hypertrophic cardiomyopathy)
GI: Non Tender and Non Distended
Musculoskeletal: Edema (Mild edema)
Skin: Warm and Dry
Neuro: AO x 3 (Conversant, on point, but appears very fatigued)
Psych: Calm
Impression / Plan
-
Impression:
Presented with hypotension
Long hospital stay 01/10/2025-02/05/2025 for autonomic dysfunction, possible transverse myelitis, possible multiple sclerosis, clinical shock with orthostasis
Hypothermia, ongoing
Anemia
Orthostasis hypotension
Paroxysmal atrial fibrillation
Ventricular tachycardia
[employer]onic ICD 05/2017
Hypertrophic obstructive cardiomyopathy
Hypertension
Hypothyroidism
Type 2 diabetes
Rheumatoid arthritis
Parkinsonism with hallucination and dysautonomia
Spinal stenosis
Echocardiogram 11/22/2024: EF 55-60% mild LVH, stage II diastolic dysfunction, normal RV, pacing wire seen, normal atria, dilated IVC, aortic sclerosis, trace aortic regurgitation, mild MAC, trace MR, pulmonary artery systolic pressure 41 mmHg
Plan:
She presents with a very complex picture, with autonomic failure, parkinsonism and features suggesting multiple systems atrophy with severe refractory orthostatic hypotension and clinical shock. Further complicating matters is hypertrophic
cardiomyopathy with what is probably acute on chronic HFpEF and paroxysmal atrial fibrillation that is new since January and probably contributing to her hemodynamic deterioration. Prior to the onset of A-fib, she had a pacemaker but based rate
was only 60, and she was programmed in AAI plus mode which would not optimize AV synchrony.
Will need to ascertain that she has been effectively anticoagulated for the last 3 weeks. When asked, she said that she has been. Therefore I favor cardioversion tomorrow with increase in the base rate of her ICD to at least 75 and a short AV
delay to ensure ongoing ventricular pacing which may be of some value in hypertrophic cardiomyopathy to optimize hemodynamics and reduce gradient.
Continue midodrine. Will split metoprolol ER to 12.5 twice daily for better pharmacokinetics.
She had been on high-dose steroids and currently is not on steroids, making me wonder about acute adrenal insufficiency. She has undergone ACTH stimulation testing. I would have a low threshold for an endocrine consult in the case as complex as
this.
For orthostasis, given probable HFpEF would be desirable to avoid Florinef. I will repeat her echo, check a troponin and a proBNP.
Data Reviewed
-
EKG: Tracing Personally Visualized and interpreted (Atrial fibrillation, right bundle branch block, last in sinus rhythm January 18, with prolonged AV delay)
Radiology: Image Personally Visualized and interpreted (Chest x-ray: Mild vascular congestion, ICD, cardiomegaly)
Labs: Labs Reviewed by me (Hemoglobin 8.5, MCV 114, potassium 3.2, bicarb 34, BUN 33, creatinine 1.1, magnesium 1.8, negative procalcitonin, proBNP was 4010 January 30, Was 1170 on January 16)
Old Records: Reviewed
Total Time Spent with Patient (in minutes): 80
[2025-02-11 11:06] LABS: Hematocrit 31.0 % (37.0-47.0); Hemoglobin 9.6 g/dL (12.0-16.0); Mean Corp Hgb Conc. 31.0 g/dL (33.0-37.0); Mean Corpuscular Volume 114.0 fL (81.0-99.0); Platelet Count 245 10^3/uL (130-400); Red Cell Dist. Width 16.2 % (11.5-14.5)
[2025-02-11 11:18] LABS: Blood Urea Nitrogen 30 mg/dl (7-17); Calcium 8.2 mg/dl (8.4-10.2); Carbon Dioxide 31 mmol/L (22-30); Chloride 103 mmol/L (98-107); Estimated Creatinine Clearance 45 ml/min; Glucose 156 mg/dl (70-99); Potassium 3.8 mmol/L (3.5-5.1); Sodium 139 mmol/L (135-145); eGFR 45.76
[2025-02-11 11:35] LABS: Troponin I 0.043 ng/ml
[2025-02-11] MEDS: DELTASONE 50 MG PO (12:12)
[2025-02-11 12:17] LABS: Glucose - Point of Care 150 mg/dl (70-99)
--- NOTE | 2025-02-11 13:50 | W.PN.HOSP.TC ---
Today's Communication/Plan
-
DCCV tomorrow
Split BB
Steroid taper
Assessment / Plan
Assessment / Plan
Physical Exam
General: Comfortable, Conversant and Obese
HEENT: NormoCephalic, Anicteric and Atraumatic
Respiratory: Rhonchi (Left) and Non Labored Respirations
Cardiac: S1/S2 and Irregular Rhythm; No Tachycardia
GI: Soft, Non Tender, Non Distended and Normal Bowel Sounds
Rectal: Deferred by Provider
Musculoskeletal: No Clubbing, No Cyanosis, No Edema and Other (TRACE stockings in place)
Skin: Warm and Dry; No Rash
Neuro: Awake, Alert, Oriented and Nonfocal/grossly intact
Psych: Calm
Symptomatic Orthostatic Hypotension, chronic issue
-Has had Cortisol and stim test in the past which was unremarkable; May be related to Afib? New Onset 3 weeks;
-Place back on Steroid taper for Transverse Myelitis
-S/p IVF
-Holding Lasix for now - ?acute HFpEF although appears euvolemic
-Neurology consulted
-TRACE stockings; patient has had issues with abd binder in the past and hesitant on use
-Decreased Toprol - F/u Cards Recs
-DCCV tomorrow 02/12
-Continue Midodrine 10mg TID - may need to titrate up
-UA negative - no obvious infectious source
-ECHO as per Cards
-Endo consult if no improvement after interventions
Cough, suspect bronchitis
-CXR with evidence of atelectasis vs pneumonia, however procalcitonin is negative therefore will hold on antibiotics
-Appears Euvolemic; probnp elevated allthough may be falsely elevated with proBNP
-Start Mucinex 600mg BID
-Start DuoNeb QID and PRN
-Encourage use of incentive spirometer
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
-Continue prednisone taper (currently on 50mg Daily)
-Consult PT/OT
Paroxysmal Atrial Fibrillation
-New onset- 3 weeks; has been on anticoag
-Continue Eliquis
-Continue amiodarone
-Decreased Toprol dose 12.5 daily BID
-DCCV tomorrow 02/12
Ventricular Tachycardia s/p ICD
-Continue amiodarone
Hypokalemia
-monitor and replete
#Elevated troponin
-likely non ischemic myocardial injury 2/2 to afib
-monitor
-no chest pain
Hypertrophic Obstructive Cardiomyopathy
-Lasix on hold as above
-Monitor Is&Os and Daily Weights
-on BB
Steroid Induced Hyperglycemia and Leukocytosis
-HgbA1c 4.8 in Feb 2025
-Continue Januvia
-Monitor sugars and continue coverage insulin
Hypothyroidism
-Continue levothyroxine
TSH .74 appx 2 weeks ago
CKD Stage IIIB
-Creatinine at baseline
#Hemorrhoids
-hgb stable
-prep H suppository
DVT proph: Eliquis
Code Status: Full Code
Total time spent on today's encounter was 51 minutes which included time spent in counseling the patient/family regarding diagnosis and treatment plan as listed above, goals of care, and symptom management. Case was discussed with nursing staff,
specialists, and care coordinators/case management. All labs and imaging personally reviewed by me. Remainder the time spent in detailed review of previous records, lab data, imaging, and other medical provider documentation.
Anticipated Discharge: 24 - 48 hours
Subjective/Interval History
-
Date of Service: February 11, 2025
Tachycardic, up to 140 with reduction of metoprolol
Objective Data
-
Labs:
Laboratory Results
02/11/25
10:46
WBC 12.8 H
Hgb 9.6 L
Hct 31.0 L
Plt Count 245
Sodium 139
Potassium 3.8
Chloride 103
Carbon Dioxide 31 H
BUN 30 H
Creatinine 1.2 H
Glucose 156 H
Calcium 8.2 L
Vital Signs:
Vital Signs
Temp Pulse Resp BP Pulse Ox
97.4 F 140 18 98/50 97
02/11/25 11:30 02/11/25 12:13 02/11/25 11:30 02/11/25 12:13 02/11/25 11:30
I&O
02/10/25 02/11/25 02/12/25
06:59 06:59 06:59
Intake Total 1240 / 1240 650 / 650 730 / 730
Output Total 525 / 525
Balance 715 / 715 650 / 650 730 / 730
Review of Systems
-
History Source: Patient
All other systems: Not reviewed unless documented
Physical Exam
-
General: No Apparent Distress
HEENT: Moist Mucous Membranes, Anicteric and PERRLA
Respiratory: Clear to Auscultation; Negative Wheezes, Rales or Rhonchi
Cardiac: Irregular Rhythm; Negative Murmur, Rub or Gallop
GI: Soft, Nontender, Nondistended and Normal Bowel Sounds
Musculoskeletal: No Edema
Skin: Warm and Dry; Negative Rash, Ulcers or Lesions
Neuro: Awake and AO x 3
Hematologic / Lymphatic: No Lymphadenopathy
Psych: Calm
Data Reviewed
-
Diagnostic Radiology: Report Reviewed by me
Labs: Labs Reviewed by me
--- NOTE | 2025-02-11 13:58 | CM ---
Patient seen at bedside on . Patient was admitted to from [place]. Patient family would like for patient to return to [facility] if appropriate, if not patient stated that she would like referral to [facility], [facility] or [facility] but not [facility]. CM spoke
with patient family while in room and prior to the recent admission patient lived with daughter. Daughter lived with patient in a 2 story home plus basement with B/B on , but patient had been staying on 1st floor with hospital bed, 1/2 bath on
, 2 steps to enter. Prior to admission in december patient ambulated with a rollator, requires assistance with ADL's, does not drive. Other DME in home is hospital bed, stair walker, RW, W/ch, SC, shower grab bars, pacer/ICD. Patient had [employer]
through [employer] for 4 hrs/day 7 days a week. She also had services with [facility] for RN, PT/OT services. She does have [employer] insurance. PCP is Jp Pimentel. Pharmacy is [facility] [address] in [place]. CM will continue to follow
for discharge planning needs.
Plan; referral to [place]/[facility] pending medical treatment plan
[2025-02-11 16:39] LABS: Glucose - Point of Care 340 mg/dl (70-99)
[2025-02-11] MEDS: NOVOLOG FLEXPEN-MODERATE RESISTANCE 7 UNITS SC (16:55)
--- NOTE | 2025-02-11 17:44 | W.PN.NEURO.1 ---
Today's Communication / Plan
-
. The dose of midodrine has been increased from 5 mg 3 times a day to 10 mg of midodrine 3 times daily.
. Lasix has been stopped.
. On metoprolol XL 12.5 mg BID.
. The patient is recommended to use compression stockings up to thigh and abdominal binder when upright.
. Cardiology seen the patient and the plan is to take the patient for cardioversion tomorrow.
. Today the patient was sitting in the chair comfortably, however, she said that she still had difficulty getting out of the bed because of her drop in blood pressure. Orthostatic vitals were done today and they were as follows: Lying in bed blood
pressure was 92/65 and the heart rate was 103, sitting up the blood pressure was 114/68 and the heart rate was 95 and while standing up the patient's blood pressure was 117/81 and the heart rate was 81.
Continue current management.
Will sign off. Please please call if any question.
Subjective/Objective
Subjective Data
Date of Service: February 11, 2025
Patient is an 79 y/o female with an extensive past medical history of atrial fibrillation on Eliquis, hypothyroidism, status post ICD implantation and midodrine dependent hypertension, who after a prolonged hospitalization from 01/10/2025 to
02/05/2025, was discharged to [facility]. The patient was persistently hypotensive despite midodrine and she was sent to the emergency department for evaluation.
. The dose of midodrine has been increased from 5 mg 3 times a day to 10 mg of midodrine 3 times daily.
. Lasix has been stopped.
. On metoprolol XL 12.5 mg BID.
. The patient is recommended to use compression stockings up to thigh and abdominal binder when upright.
. There is a concern about possible MS versus clinically isolated syndrome versus osteomyelitis.
. 01/22/25 MRI thoracic spine with 3 focal areas of increased T2 and STIR signal within the thoracic spinal cord, at the T5, superior T7, and T8/T8-9 levels. Etiology for this focal signal intensity abnormality is uncertain. Main differential
considerations include demyelinating lesions, transverse myelitis, and ischemia.
. During the last admission s/p high dose IV Steroids completed for 5days and plan was prednisone taper, started at 60 mg daily, the prednisone taper will continue (currently on 50 mg daily). She is also on Protonix 40 mg daily.
. The patient likely has steroid induced hyperglycemia and leukocytosis.
. Atrial fibrillation. Continue Eliquis
. Check orthostatic vitals Q8H.
. Cardiology seen the patient and the plan is to take the patient for cardioversion tomorrow.
. Today the patient was sitting in the chair comfortably, however, she said that she still had difficulty getting out of the bed because of her drop in blood pressure. Orthostatic vitals were done today and they were as follows: Lying in bed blood
pressure was 92/65 and the heart rate was 103, sitting up the blood pressure was 114/68 and the heart rate was 95 and while standing up the patient's blood pressure was 117/81 and the heart rate was 81.
Objective Data
Vital Signs
Temp Pulse Resp BP Pulse Ox
36.0 C L 130 18 133/99 92
02/11/25 15:40 02/11/25 16:56 02/11/25 15:40 02/11/25 16:56 02/11/25 15:40
Lab Results
02/11/25 10:46
02/11/25 10:46
Sodium 139 mmol/L (135-145) 02/11/25 10:46
Potassium 3.8 mmol/L (3.5-5.1) 02/11/25 10:46
BUN 30 mg/dl (7-17) H 02/11/25 10:46
Glucose 156 mg/dl (70-99) H 02/11/25 10:46
Calcium 8.2 mg/dl (8.4-10.2) L 02/11/25 10:46
Rie-U-Uxxbuwsteqb Pept 9000 pg/ml 02/11/25 10:46
Patient Allergies
celecoxib Allergy (Verified 01/10/25 21:41)
stomach pains
codeine Allergy (Verified 01/10/25 13:09)
nausea/vomiting
Medications
-
Active Medications
Generic Name Dose Route Start Last Admin
Trade Name Freq PRN Reason Stop Dose Admin
Acetaminophen 650 mg 02/09/25 23:50 02/10/25 22:38
Acetaminophen 325 Mg Tablet PO 03/09/25 23:49 650 mg
Q4HPRN PRN Administration
mild pain/ fever>100.5F
Albuterol/Ipratropium 3 ml 02/09/25 23:50
Ipratropium 0.5/Albuterol 3 Mg (3 Ml Ampul) INH
R Q4HPRN PRN
shortness of breath/wheeze
Protocol
Albuterol/Ipratropium 3 ml 02/10/25 08:00 02/11/25 15:14
Ipratropium 0.5/Albuterol 3 Mg (3 Ml Ampul) INH 3 ml
R QID CHAO Administration
Protocol
Amiodarone HCl 200 mg 02/10/25 08:00 02/11/25 08:17
Amiodarone 200 Mg Tablet PO 03/10/25 07:59 200 mg
DAILY CHAO Administration
Apixaban 5 mg 02/10/25 08:00 02/11/25 08:17
Apixaban (Eliquis) 5 Mg Tablet PO 03/10/25 07:59 5 mg
BID CHAO Administration
Dextrose 12.5 grams 02/09/25 23:50
Dextrose 50% (0.5 Grams/Ml) 50 Ml Syringe IV 03/09/25 23:49
[id number] PRN
hypoglycemia
Protocol
Glucagon 1 mg 02/09/25 23:50
Glucagon 1 Mg Vial IM 03/09/25 23:49
PRN PRN
hypoglycemia
Protocol
Guaifenesin 600 mg 02/10/25 08:00 02/11/25 08:17
Guaifenesin 600 Mg Extended Release Tablet PO 03/10/25 07:59 600 mg
Q12 CHAO Administration
Insulin Aspart 0 units 02/10/25 07:30 02/11/25 16:55
Insulin Aspart Moderate Resistance 300 Units/3 Ml Pen.Injctr SC 03/10/25 07:29 7 units
AC CHAO Administration
Protocol
Levothyroxine Sodium 150 mcg 02/10/25 06:00 02/11/25 05:35
Levothyroxine 150 Mcg Tablet PO 03/10/25 05:59 150 mcg
DAILY @ 0600 CHAO Administration
Metoprolol Succinate 12.5 mg 02/11/25 20:00
Metoprolol 12.5 Mg Extended Release Dose (1/2 Of 25 Mg Xl Tablet) PO 03/11/25 19:59
BID CHAO
Midodrine 10 mg 02/10/25 08:00 02/11/25 16:56
Midodrine 5 Mg Tablet PO 03/10/25 07:59 10 mg
TID@0800,1300,1800 CHAO Administration
Pantoprazole Sodium 40 mg 02/10/25 08:00 02/11/25 08:17
Pantoprazole 40 Mg Delayed Release Tablet PO 03/10/25 07:59 40 mg
DAILY CHAO Administration
Prednisone 50 mg 02/11/25 12:00 02/11/25 12:12
Prednisone 50 Mg Tablet PO 02/17/25 08:01 50 mg
DAILY CHAO Administration
Prednisone 40 mg 02/18/25 08:00
Prednisone 20 Mg Tablet PO 02/24/25 08:01
DAILY CHAO
Prednisone 30 mg 02/25/25 08:00
Prednisone 10 Mg Tablet PO 03/03/25 08:01
DAILY CHAO
Prednisone 20 mg 03/04/25 08:00
Prednisone 20 Mg Tablet PO 03/10/25 08:01
DAILY CHAO
Prednisone 10 mg 03/11/25 08:00
Prednisone 10 Mg Tablet PO 03/17/25 08:01
DAILY CHAO
Sodium Chloride 0 flush 02/09/25 23:00
Sodium Chloride 0.9% (Flush) Syringe IV 03/09/25 22:59
PER PROTOCOL CHAO
Wh Jayson/Min Oil/Pramoxine/Phenyleph 0 applic 02/10/25 11:18 02/10/25 20:42
Preparation H Max Strength Pain Relief Cream RECTAL 03/10/25 11:17 1 applic
Q6HPRN PRN Administration
hemorrhoids
Home Medications
�Medication �Instructions �Recorded
apixaban 5 mg tablet (Eliquis) 5 mg PO BID #60 tabs 05/18/17
cyanocobalamin (vitamin B-12) 1,000 mcg PO DAILY Supplement 02/19/18
1,000 mcg tablet
amiodarone 200 mg tablet (Pacerone) 200 mg PO DAILY Arrhythmia 12/23/18
furosemide 20 mg tablet 20 mg PO DAILY Fluid 11/21/24
Retention/Swelling
dhzbhwbvjgtj-vzvtgdrq-sfgbka tablet 1 tab PO DAILY Supplement 11/21/24
thiamine mononitrate (vit B1) 100 100 mg PO DAILY #100 tabs 12/01/24
mg tablet
hydrocortisone acetate 25 mg 25 mg [place] HS PRN hemorrhoids #12 ea 02/05/25
rectal suppository
levothyroxine 150 mcg tablet 150 mcg PO DAILY @ 0600 #30 tabs 02/05/25
miconazole nitrate 2 % topical 1 applic topical BID #85 grams 02/05/25
powder (Miconazorb AF)
pantoprazole 40 mg tablet,delayed 40 mg PO DAILY #30 tabs 02/05/25
release
phenylephrine 0.25 %-pramoxine 1 1 applic [place] Q6HPRN PRN hemorrhoid 02/05/25
%-glycerin-wh.petrolatum rectal discomfort #51 grams
cream (Preparation H Maximum
Strength)
prednisone 10 mg tablet See Rx Instructions .Route 02/05/25
.COMPLEX #105 tabs
magnesium oxide 400 mg PO DAILY 02/09/25
metoprolol succinate 50 mg 50 mg PO DAILY 02/09/25
tablet,extended release 24 hr
midodrine 5 mg tablet 10 mg PO TID@0800,1300,1800 02/09/25
potassium 02/10/25
--- NOTE | 2025-02-11 19:25 | PTCARENOTE ---
Patient was oob to chair for most of shift. HR remains in afib 130-150's. Blood pressures are holding out 90/50-130/70's. Orthostatic VS were completed this shift, pt did not drop. Cardiology Dr Rboles and hospitalist Dr. Camacho are aware of
elevated HR- pt will be npo at [facility] for cardioversion tomorrow morning.
[2025-02-11] MEDS: TOPROL XL 12.5 MG PO (19:47)
[2025-02-11 21:13] LABS: Glucose - Point of Care 304 mg/dl (70-99)
[2025-02-12] VITALS (7 sets, daily range): BP systolic 121–146; BP diastolic 68–83; PULSE 87–113; BMI 37.0
[2025-02-12] MEDS: SYNTHROID 150 MCG PO (05:22)
[2025-02-12] MEDS: DUONEB 3 ML INH ×2 (07:30→19:53)
[2025-02-12 07:31] LABS: Glucose - Point of Care 145 mg/dl (70-99)
--- NOTE | 2025-02-12 07:31 | W.PN.HOSP.TC ---
Today's Communication/Plan
-
see a/p
Assessment / Plan
Assessment / Plan
Physical Exam
General: Comfortable, Conversant and Obese
HEENT: NormoCephalic, Anicteric and Atraumatic
Respiratory: Clear to auscultation b/l
Cardiac: S1/S2 regular rhythm; No Tachycardia
GI: Soft, Non Tender, Non Distended and Normal Bowel Sounds
Musculoskeletal: No Clubbing, No Cyanosis, No Edema and Other (TRACE stockings in place)
Skin: Warm and Dry; No Rash
Neuro: AOx3 conversant coherent
Psych: Calm
Symptomatic Orthostatic Hypotension, chronic issue
-Has had Cortisol and stim test in the past which was unremarkable; possibly related to afib, recent orthostatics 02/11/25 neg for BP drop on standing though patient was noted still symptomatic dizzy
-S/p IVF
-Neurology consult appreciated
-TRACE stockings; patient has had issues with abd binder in the past and hesitant on use
-Toprol XL reduced to 12.5 mg BID as per Cardio
-DCCV 02/12 successeful
-Continue Midodrine 10mg TID
-UA negative - no obvious infectious source
-ECHO
Chronic Cough, suspect bronchitis
-CXR with evidence of atelectasis vs pneumonia, however procalcitonin neg, monitor off abx
-Appears Euvolemic
-Mucinex 600mg BID
-DuoNeb QID and PRN
-Encourage use of incentive spirometer
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
Neuropathy, lower ext numbness R>L
-Continue prednisone taper
-Consult PT/OT Appreciated Acute Rehab
-trial low dose gabapentin 100 mg HS
Paroxysmal Atrial Fibrillation
-Has been on anticoag
-Continue Eliquis
-Continue amiodarone
-Decreased Toprol dose 12.5 daily BID
-DCCV 02/12 successful
Ventricular Tachycardia s/p ICD
-Continue amiodarone
Hypokalemia
-monitor and replete
#Elevated troponin
-likely non ischemic myocardial injury 2/2 to afib
-monitor
-no chest pain
Hypertrophic Obstructive Cardiomyopathy
-Lasix on hold as above
-Monitor Is&Os and Daily Weights
-on BB
Steroid Induced Hyperglycemia and Leukocytosis
-HgbA1c 4.8 in Feb 2025
-Continue Januvia
-Monitor sugars and continue coverage insulin
Hypothyroidism
-Continue levothyroxine
CKD Stage IIIB
-Creatinine at baseline
#Hemorrhoids
-hgb stable
-prep H prn
DVT proph: Eliquis
Code Status: Full Code
Discussed with patient and patient's daughter Vilma
I spent a total of 45 minutes with the patient or on the floor. More than 50% of this time involved counseling and coordination of care.
Anticipated Discharge: 24 - 48 hours
Subjective/Interval History
-
Date of Service: February 12, 2025
No acute distress, resting comfortably in bed. Overall reports feeling well s/p successful cardioversion. numbness LE's persist, R>L
Objective Data
-
Labs:
Laboratory Results
02/12/25
06:00
WBC Pending
Hgb Pending
Hct Pending
Plt Count Pending
Sodium Pending
Potassium Pending
Chloride Pending
Carbon Dioxide Pending
BUN Pending
Creatinine Pending
Glucose Pending
Calcium Pending
Vital Signs:
Vital Signs
Temp Pulse Resp BP Pulse Ox
97.8 F 111 16 121/80 96
02/12/25 03:32 02/12/25 03:32 02/12/25 03:32 02/12/25 03:32 02/12/25 03:32
I&O
02/11/25 02/12/25 02/13/25
06:59 06:59 06:59
Intake Total 650 / 650 1769
Balance 650 / 650 1769
--- NOTE | 2025-02-12 08:46 | VNURNOTE ---
Chart reviewed. Pt sent to ER from [place]. Prior to [place], pt was on service with [facility]. Will continue to follow hospitalization and DC plans. Liaison remains available.
[2025-02-12] MEDS: PACERONE 200 MG PO (09:02)
[2025-02-12] MEDS: TOPROL XL 12.5 MG PO ×2 (09:02→19:47)
[2025-02-12] MEDS: ELIQUIS 5 MG PO ×2 (09:03→19:47)
[2025-02-12] MEDS: PROTONIX 40 MG PO (09:03)
[2025-02-12] MEDS: NOVOLOG FLEXPEN-MODERATE RESISTANCE SC ×3 (09:10→17:46)
[2025-02-12 09:14] LABS: Hematocrit 26.7 % (37.0-47.0); Hemoglobin 8.7 g/dL (12.0-16.0); Mean Corp Hgb Conc. 32.6 g/dL (33.0-37.0); Mean Corpuscular Volume 110.3 fL (81.0-99.0); Platelet Count 188 10^3/uL (130-400); Red Cell Dist. Width 16.1 % (11.5-14.5)
[2025-02-12 09:32] LABS: Troponin I 0.034 ng/ml
[2025-02-12 11:51] LABS: Blood Urea Nitrogen 33 mg/dl (7-17); Calcium 8.2 mg/dl (8.4-10.2); Chloride 102 mmol/L (98-107); Estimated Creatinine Clearance 50 ml/min; Glucose 114 mg/dl (70-99); Magnesium 2.0 mg/dl (1.6-2.3); Potassium 3.5 mmol/L (3.5-5.1); Sodium 140 mmol/L (135-145); eGFR 50.80
[2025-02-12 11:59] LABS: Carbon Dioxide 38 mmol/L (22-30)
[2025-02-12] MEDS: MUCINEX 600 MG PO ×2 (16:02→19:47)
[2025-02-12] MEDS: DELTASONE 50 MG PO (16:02)
[2025-02-12 16:56] LABS: Glucose - Point of Care 117 mg/dl (70-99)
--- NOTE | 2025-02-12 19:02 | ITS.CL.CARDI ---
Mission Analyst - Cardioversion
Cardioversion
Procedure Report:
Date of Procedure: 02/12/25
Procedure: Cardioversion
Indication: Symptomatic atrial fibrillation
Performing Physician: Kyung Ventura DO [facility]
Preprocedure BOB without left atrial appendage thrombus; For full details please see official report
Anticoagulation: Eliquis
Medtronic device interrogation with patient relations representative pre and post cardioversion
Technique: The patient was brought to the holding area. Signed informed consent was obtained. A time out was called and performed. The patient was anesthetized by the anesthesia service. A transesophageal echocardiogram performed due to missed dose
of Eliquis on 02/09/25 did not reveal left atrial appendage thrombus. R2 pads were placed anteriorly and posteriorly. A 200 J synchronized biphasic shock restored Atrial paced rhythm. Lower rate reprogrammed to 75 bpm. Normal device function. There
were no complications.
Conclusion: Uncomplicated cardioversion from atrial fibrillation to Atrial paced rhythm.
Recommendation: Routine post cardioversion care. Continue [facility]p anticoagulation.
[2025-02-12 21:13] LABS: Glucose - Point of Care 211 mg/dl (70-99)
[2025-02-12] MEDS: NEURONTIN 100 MG PO (21:57)
[2025-02-13] VITALS (7 sets, daily range): BP systolic 135–165; BP diastolic 52–105; PULSE 78–96; BMI 36.9
--- NOTE | 2025-02-13 00:17 | W.PN.CARDCBS ---
Today's Communication / Plan
-
Successful DC cardioversion with 200 J x 1 to a paced rhythm
Continue uninterrupted Eliquis anticoagulation
Resume orthostatics 02/13/2025
PT/OT
Discharge planning
Impression / Plan
-
Impression:
Presented with hypotension
Long hospital stay 01/10/2025-02/05/2025 for autonomic dysfunction, possible transverse myelitis, possible multiple sclerosis, clinical shock with orthostasis
Hypothermia, ongoing
Anemia
Orthostasis hypotension
Paroxysmal atrial fibrillation
Ventricular tachycardia
Medtronic ICD 05/2017
Hypertrophic obstructive cardiomyopathy
Hypertension
Hypothyroidism
Type 2 diabetes
Rheumatoid arthritis
Parkinsonism with hallucination and dysautonomia
Spinal stenosis
Echocardiogram 11/22/2024: EF 55-60% mild LVH, stage II diastolic dysfunction, normal RV, pacing wire seen, normal atria, dilated IVC, aortic sclerosis, trace aortic regurgitation, mild MAC, trace MR, pulmonary artery systolic pressure 41 mmHg
Plan:
79 year old female with complex medical issues including autonomic failure, parkinsonism and features suggesting multiple systems atrophy with severe refractory orthostatic hypotension and clinical shock. Further complicating matters is
hypertrophic cardiomyopathy with what is probably acute on chronic HFpEF and paroxysmal atrial fibrillation that is new since January and probably contributing to her hemodynamic deterioration.
Patient scheduled for DC cardioversion. 1 reviewed anticoagulation there was 1 dose of Eliquis unaccounted for on February 09 in the evening. Due to her risks included-atrophic cardiomyopathy decision made to proceed with precardioversion and BOB.
BOB performed without complications; no left atrial appendage thrombus. DC cardioversion successful with 200 J x 1. Medtronic device interrogation with sales representative graphic art pre and post cardioversion: Normal function. Lower rate increased to 75 bpm.
Autonomic dysfunction/symptomatic orthostasis
-Blood pressures remained stable with anesthesia.
-Continue midodrine which was increased to 10 mg 3 times daily
-Prior cortisol and stim test unremarkable
-UA negative.
-Continue to hold Lasix. No further IV fluids
-Continue low-dose metoprolol XL 12.5 mg twice daily
-Continue compression stockings and abdominal binder when upright
-Resume orthostatic blood pressures tomorrow
-Appreciate neurology input
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
-Continue steroid per primary
Will follow with you
Progress Note - Medical Transcription Radiology
Subjective
Date of Service: February 13, 2025
Late entry. Patient was seen and examined during time of BOB/cardioversion on 02/12/2025. Complaining of fatigue and weakness. No dizziness, shortness of breath or chest pain. Consent signed and case discussed with anesthesia prior to procedure.
[employer]tr[employer] device sales representative graphic art also present.
Objective
Labs:
Labs
Hgb 8.7 g/dL (12.0-16.0) L 02/12/25 08:06
Hct 26.7 % (37.0-47.0) L 02/12/25 08:06
Plt Count 188 10^3/uL (130-400) D 02/12/25 08:06
Sodium 140 mmol/L (135-145) 02/12/25 11:12
Potassium 3.5 mmol/L (3.5-5.1) 02/12/25 11:12
BUN 33 mg/dl (7-17) H 02/12/25 11:12
Creatinine 1.1 mg/dL (0.6-1.0) H 02/12/25 11:12
Glucose 114 mg/dl (70-99) H 02/12/25 11:12
Troponins
02/11/25 02/12/25
10:46 08:06
Troponin I 0.043 H* 0.034
Vital Signs and I&O:
Vital Signs
Temp Pulse Resp BP Pulse Ox
97.9 F 76 16 122/78 94
02/12/25 23:00 02/12/25 23:00 02/12/25 23:00 02/12/25 23:00 02/12/25 23:00
Vital Signs
Temp Pulse Resp BP Pulse Ox
97.9 F 76 16 122/78 94
02/12/25 23:00 02/12/25 23:00 02/12/25 23:00 02/12/25 23:00 02/12/25 23:00
Intake & Output
02/10/25 02/11/25 02/12/25 02/13/25
06:59 06:59 06:59 06:59
Intake Total 1240 / 1240 650 / 650 1770 / 1770 500 / 500
Output Total 525 / 525
Balance 715 / 715 650 / 650 1770 / 1770 500 / 500
Physical Exam
Physical Exam
General: Frail 79-year-old female. NAD
Heart: Irregularly irregular. Positive S1-S2. 2/6 SM. + Device
Lungs: Bronchovesicular breath sounds, decreased but clear
Abd: Positive BS, NT/ND, neg rebound/rigidity/guarding
Ext: no edema. TEDS present
[2025-02-13] MEDS: SYNTHROID 150 MCG PO (06:05)
[2025-02-13 07:51] LABS: Glucose - Point of Care 154 mg/dl (70-99)
[2025-02-13] MEDS: DUONEB 3 ML INH (07:54)
--- NOTE | 2025-02-13 08:25 | W.PN.HOSP.TC ---
Today's Communication/Plan
-
check orthostatic vitals
PT/OT
Discharge planning Acute Rehab
Claritin bedtime for possible post-nasal drip
Prednisone Taper
Assessment / Plan
Assessment / Plan
Physical Exam
General: Comfortable, Conversant and Obese
HEENT: NormoCephalic, Anicteric and Atraumatic
Respiratory: Clear to auscultation b/l
Cardiac: S1/S2 regular rhythm; No Tachycardia
GI: Soft, Non Tender, Non Distended and Normal Bowel Sounds
Musculoskeletal: No Clubbing, No Cyanosis, No Edema and Other (TRACE stockings in place)
Skin: Warm and Dry; No Rash
Neuro: AOx3 conversant coherent
Psych: Calm
Symptomatic Orthostatic Hypotension, chronic issue
-Has had Cortisol and stim test in the past which was unremarkable; possibly related to afib, recent orthostatics 02/11/25 neg for BP drop on standing though patient was noted still symptomatic dizzy
-S/p IVF
-Neurology consult appreciated
-TRACE stockings; patient has had issues with abd binder in the past and hesitant on use
-Toprol XL reduced to 12.5 mg BID as per Cardio
-DCCV 02/12 successeful
-Continue Midodrine 10mg TID, given symptomatic orthostatic hypotension, some permissive hypertension advisable to help reduce risk of falls and enable further participation physical therapy
-UA negative - no obvious infectious source
-BOB appreciated EF 65-70%
Chronic Cough, suspect bronchitis
Cough possibly 2/2 post-nasal drip
-CXR with evidence of atelectasis vs pneumonia, however procalcitonin neg, monitor off abx
-Appears Euvolemic
-Mucinex 600mg BID
-DuoNeb PRN sob/wheezing
-Encourage use of incentive spirometer
-bedtime claritin started 02/13
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
Neuropathy, lower ext numbness R>L
-Continue prednisone taper, 40 mg daily 7 days then 30 mg daily 7 days then 20 mg daily 7 days then 10 mg daily 7 days
-Consult PT/OT Appreciated Acute Rehab
-trial low dose gabapentin 100 mg HS attempted but discontinued as no improvement noted and patient does not want to try increased dose
-discussed w/ patient and daughter Vilma, partial recovery from transverse myelitis is usually in the magnitude of months and full recovery is not guaranteed
Paroxysmal Atrial Fibrillation
-Has been on anticoag
-Continue Eliquis
-Continue amiodarone
-Decreased Toprol dose 12.5 daily BID
-DCCV 02/12 successful
Ventricular Tachycardia s/p ICD
-Continue amiodarone
Hypokalemia
-monitor and replete
#Elevated troponin
-likely non ischemic myocardial injury 2/2 to afib
-monitor
-no chest pain
Hypertrophic Obstructive Cardiomyopathy
-Lasix on hold as above
-Monitor Is&Os and Daily Weights
-on BB
Steroid Induced Hyperglycemia and Leukocytosis
-HgbA1c 4.8 in Feb 2025
-Continue Januvia
-Monitor sugars and continue coverage insulin
Hypothyroidism
-Continue levothyroxine
CKD Stage IIIB
-Creatinine at baseline
#Hemorrhoids
-hgb stable
-prep H prn
#Patient suspected Parkinson's in the past
currently appears very asymptomatic, no significant rigidity or resting tremors
continued follow up with neurology advised
DVT proph: Eliquis
Code Status: Full Code
Discussed with patient and patient's daughter Vilma
I spent a total of 45 minutes with the patient or on the floor. More than 50% of this time involved counseling and coordination of care.
Anticipated Discharge: Within 24 hours
Subjective/Interval History
-
Date of Service: February 13, 2025
Seen and examined at bedside in no acute distress, resting comfortably in bed. Overall reports feeling well. Reports post-nasal drip, cough remains persistent intermittent. Noted no improvement LE numbness w/ start gabapentin last night.
Objective Data
-
Labs:
Laboratory Results
02/13/25
07:59
WBC Pending
Hgb Pending
Hct Pending
Plt Count Pending
Sodium Pending
Potassium Pending
Chloride Pending
Carbon Dioxide Pending
BUN Pending
Creatinine Pending
Glucose Pending
Calcium Pending
Vital Signs:
Vital Signs
Temp Pulse Resp BP Pulse Ox
97.5 F 78 16 156/91 92
02/13/25 03:00 02/13/25 08:02 02/13/25 08:02 02/13/25 03:00 02/13/25 08:02
I&O
02/12/25 02/13/25 02/14/25
06:59 06:59 06:59
Intake Total 1770 / 1770 500 / 500
Balance 1770 / 1770 500 / 500
[2025-02-13 08:59] LABS: Hematocrit 28.3 % (37.0-47.0); Hemoglobin 9.0 g/dL (12.0-16.0); Mean Corp Hgb Conc. 31.8 g/dL (33.0-37.0); Mean Corpuscular Volume 113.2 fL (81.0-99.0); Platelet Count 189 10^3/uL (130-400); Red Cell Dist. Width 15.7 % (11.5-14.5)
[2025-02-13 10:03] LABS: Blood Urea Nitrogen 35 mg/dl (7-17); Calcium 8.1 mg/dl (8.4-10.2); Chloride 103 mmol/L (98-107); Estimated Creatinine Clearance 45 ml/min; Glucose 143 mg/dl (70-99); Magnesium 2.2 mg/dl (1.6-2.3); Potassium 3.5 mmol/L (3.5-5.1); Sodium 139 mmol/L (135-145); eGFR 45.76
--- NOTE | 2025-02-13 10:06 | PN.CDI ---
CDI
- -
CDI:
Physician Documentation Request
Admit Date: 02/09/25 23:05
Dear Doctor,
Patient admitted for hypotension.
02/11 Cardiology Consult: 'Autonomic dysfunction/symptomatic orthostasis'
02/12 Hospitalist PN: 'Symptomatic Orthostatic Hypotension, chronic issue'
Please clarify which of the following is the most likely etiology of the above symptoms and treatment rendered:
Neurogenic orthostatic hypotension
Orthostatic hypotension
Other
Unable to determine
Use of terms such as suspected, likely, concern for, or probable (associated with a specific diagnosis that is being evaluated, monitored, or treated as if it exists) are acceptable and can be coded in the inpatient setting, when documented at the
time of discharge.
Thank you,
Mya Marino RN, BSN
CDI Specialist
Available via [place] text
Please use your independent medical judgment in providing your response.
[2025-02-13] MEDS: PACERONE 200 MG PO (10:15)
[2025-02-13] MEDS: PROTONIX 40 MG PO (10:15)
[2025-02-13] MEDS: ELIQUIS 5 MG PO ×2 (10:15→20:55)
[2025-02-13] MEDS: MUCINEX 600 MG PO ×2 (10:15→20:55)
[2025-02-13] MEDS: DELTASONE 40 MG PO (10:15)
[2025-02-13] MEDS: TOPROL XL 12.5 MG PO ×2 (10:22→20:55)
[2025-02-13] MEDS: NOVOLOG FLEXPEN-MODERATE RESISTANCE 1 UNITS SC (10:25)
[2025-02-13 11:32] LABS: Carbon Dioxide 32 mmol/L (22-30)
[2025-02-13 12:14] LABS: Glucose - Point of Care 136 mg/dl (70-99)
[2025-02-13] MEDS: NOVOLOG FLEXPEN-MODERATE RESISTANCE SC (13:19)
--- NOTE | 2025-02-13 14:26 | CM ---
Spoke to [facility] liaison. SHe is waiting to see updated PT and OT notes in order to make final decision on accepting patient back to [facility].
--- NOTE | 2025-02-13 14:53 | W.PN.CARDCBS ---
Today's Communication / Plan
-
Check orthostatics now that she is back in sinus rhythm
Discharge planning
Outpatient cardiac follow-up to be arranged
Will sign off, recall if needed
Impression / Plan
-
Impression:
Presented with hypotension
Long hospital stay 01/10/2025-02/05/2025 for autonomic dysfunction, possible transverse myelitis, possible multiple sclerosis, clinical shock with orthostasis
Hypothermia, ongoing
Anemia
Orthostasis hypotension
Paroxysmal atrial fibrillation
Ventricular tachycardia
Medtronic ICD 05/2017
Hypertrophic obstructive cardiomyopathy
Hypertension
Hypothyroidism
Type 2 diabetes
Rheumatoid arthritis
Parkinsonism with hallucination and dysautonomia
Spinal stenosis
Echocardiogram 11/22/2024: EF 55-60% mild LVH, stage II diastolic dysfunction, normal RV, pacing wire seen, normal atria, dilated IVC, aortic sclerosis, trace aortic regurgitation, mild MAC, trace MR, pulmonary artery systolic pressure 41 mmHg
Plan:
79 year old female with complex medical issues including autonomic failure, parkinsonism and features suggesting multiple systems atrophy with severe refractory orthostatic hypotension and clinical shock. Further complicating matters is
hypertrophic cardiomyopathy with what is probably acute on chronic HFpEF and paroxysmal atrial fibrillation that is new since January and probably contributing to her hemodynamic deterioration.
Atrial fibrillation status post BOB/ cardioversion 02/12/2025
-Maintaining sinus rhythm
-Transesophageal echocardiogram performed due to missed dose of Eliquis on 02/09 as she was transitioning from [facility] rehab to [facility]. Echocardiogram shows normal biventricular size and systolic function with right-sided device wires
present. No left atrial or left atrial appendage thrombus. Moderate tricuspid regurgitation, trace mitral regurgitation and trileaflet sclerotic aortic valve with trace AI.
- DC cardioversion successful with 200 J x 1.
-Medtr[employer] device interrogation with hostess party sales representative pre and post cardioversion: Normal function. Lower rate increased to 75 bpm.
-Continue uninterrupted Eliquis
Hypertrophic cardiomyopathy with hx of Ventricular Tachycardia s/p ICD
-Continue amiodarone and low-dose metoprolol
-For now we will keep off Lasix and use as needed.
Autonomic dysfunction/symptomatic orthostasis with history of Parkinson
-Check orthostatic blood pressures today
-Continue midodrine which was increased to 10 mg TID
-Prior cortisol and stim test unremarkable
-UA negative.
-Continue to hold Lasix. No further IV fluids
-Continue low-dose metoprolol XL 12.5 mg twice daily
-Continue compression stockings and abdominal binder when upright
-Appreciate neurology input
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
-Continue steroid per primary
Discharge planning
Outpatient cardiac follow-up will be arranged
Will sign off, recall if needed
Progress Note - Endoscopy Rn
Subjective
Date of Service: February 13, 2025
Patient seen and examined feeling well post cardioversion yesterday. Has not been out of bed yet. No chest pain, shortness of breath or palpitations. No dizziness
Objective
Labs:
02/13/25 07:59
02/13/25 07:59
Labs
Hgb 9.0 g/dL (12.0-16.0) L 02/13/25 07:59
Hct 28.3 % (37.0-47.0) L 02/13/25 07:59
Plt Count 189 10^3/uL (130-400) 02/13/25 07:59
Sodium 139 mmol/L (135-145) 02/13/25 07:59
Potassium 3.5 mmol/L (3.5-5.1) 02/13/25 07:59
BUN 35 mg/dl (7-17) H 02/13/25 07:59
Creatinine 1.2 mg/dL (0.6-1.0) H 02/13/25 07:59
Glucose 143 mg/dl (70-99) H 02/13/25 07:59
Troponins
02/11/25 02/12/25
10:46 08:06
Troponin I 0.043 H* 0.034
Vital Signs and I&O:
Vital Signs
Temp Pulse Resp BP Pulse Ox
97.4 F 77 20 135/63 96
02/13/25 11:40 02/13/25 11:40 02/13/25 11:40 02/13/25 13:19 02/13/25 11:40
Vital Signs
Temp Pulse Resp BP Pulse Ox
97.4 F 77 20 135/63 96
02/13/25 11:40 02/13/25 11:40 02/13/25 11:40 02/13/25 13:19 02/13/25 11:40
Intake & Output
02/11/25 02/12/25 02/13/25 02/14/25
06:59 06:59 06:59 06:59
Intake Total 650 / 650 1770 / 1770 500 / 500
Balance 650 / 650 1770 / 1770 500 / 500
Physical Exam
Physical Exam
General: 79-year-old female. NAD; RA
Heart: Regular Positive S1-S2. 2/6 SM. + Device
Lungs: Bronchovesicular breath sounds, decreased but clear
Abd: Positive BS, NT/ND, neg rebound/rigidity/guarding
Ext: no edema. TEDS present
[2025-02-13 17:36] LABS: Glucose - Point of Care 229 mg/dl (70-99)
[2025-02-13] MEDS: NOVOLOG FLEXPEN-MODERATE RESISTANCE 3 UNITS SC (17:36)
[2025-02-13] MEDS: CLARITIN 10 MG PO (20:55)
[2025-02-13 21:34] LABS: Glucose - Point of Care 185 mg/dl (70-99)
[2025-02-14] VITALS (8 sets, daily range): BP systolic 128–150; BP diastolic 73–92; PULSE 75–84; O2SAT 96; BMI 36.5
[2025-02-14] MEDS: SYNTHROID 150 MCG PO (06:12)
--- NOTE | 2025-02-14 07:45 | W.PN.HOSP.TC ---
Today's Communication/Plan
-
Discharge planning Acute Rehab
Assessment / Plan
Assessment / Plan
Physical Exam
General: Comfortable, Conversant and Obese
HEENT: NormoCephalic, Anicteric and Atraumatic
Respiratory: Clear to auscultation b/l
Cardiac: S1/S2 regular rhythm; No Tachycardia
GI: Soft, Non Tender, Non Distended and Normal Bowel Sounds
Musculoskeletal: No Clubbing, No Cyanosis, No Edema and Other (TRACE stockings in place)
Skin: Warm and Dry; No Rash
Neuro: AOx3 conversant coherent
Psych: Calm
Symptomatic Orthostatic Hypotension, chronic issue
-Has had Cortisol and stim test in the past which was unremarkable; possibly related to afib, recent orthostatics 02/11/25 neg for BP drop on standing though patient was noted still symptomatic dizzy
-S/p IVF
-Neurology consult appreciated
-TRACE stockings; patient has had issues with abd binder in the past and hesitant on use
-Toprol XL reduced to 12.5 mg BID as per Cardio
-DCCV 02/12 successeful
-Continue Midodrine 10mg TID, given symptomatic orthostatic hypotension, some permissive hypertension advisable to help reduce risk of falls and enable further participation physical therapy
-UA negative - no obvious infectious source
-BOB appreciated EF 65-70%
Chronic Cough, suspect bronchitis
Cough possibly 2/2 post-nasal drip
-CXR with evidence of atelectasis vs pneumonia, however procalcitonin neg, monitor off abx
-Appears Euvolemic
-DuoNeb PRN sob/wheezing
-Encourage use of incentive spirometer
-bedtime claritin started 02/13 subsequent improvement in cough noted, scheduled mucinex switched to prn robitussin
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
Neuropathy, lower ext numbness R>L
-Continue prednisone taper, 40 mg daily 7 days then 30 mg daily 7 days then 20 mg daily 7 days then 10 mg daily 7 days (dose reduction by 10 mg starting every )
-Consult PT/OT Appreciated Acute Rehab
-trial low dose gabapentin 100 mg HS attempted but discontinued as no improvement noted and patient does not want to try increased dose
-discussed w/ patient and daughter Vilma, partial recovery from transverse myelitis is usually in the magnitude of months and full recovery is not guaranteed
Paroxysmal Atrial Fibrillation
-Has been on anticoag
-Continue Eliquis
-Continue amiodarone
-Decreased Toprol dose 12.5 daily BID, cont
-DCCV 02/12 successful
Ventricular Tachycardia s/p ICD
-Continue amiodarone
Hypokalemia
-monitor and replete
#Elevated troponin
-likely non ischemic myocardial injury 2/2 to afib
-monitor
-no chest pain
Hypertrophic Obstructive Cardiomyopathy
-Lasix on hold as above
-Monitor Is&Os and Daily Weights
-on BB
Steroid Induced Hyperglycemia and Leukocytosis
-HgbA1c 4.8 in Feb 2025
-Continue Januvia
-Monitor sugars and continue coverage insulin
Hypothyroidism
Iatrogenic hyperthyroidism
-T4 noted elevated
-Synthroid reduced from 150 mcg to 137 mcg daily
-repeat TFTs in 4 weeks.
CKD Stage IIIB
-Creatinine at baseline
#Hemorrhoids
-hgb stable
-prep H prn
#Patient suspected Parkinson's in the past
currently appears very asymptomatic, no significant rigidity or resting tremors
continued follow up with neurology advised
PT/OT appreciated Acute Rehab
DVT proph: Eliquis
Code Status: Full Code
Discussed with patient and patient's daughter Vilma
I spent a total of 36 minutes with the patient or on the floor. More than 50% of this time involved counseling and coordination of care.
Anticipated Discharge: Within 24 hours
Subjective/Interval History
-
Date of Service: February 14, 2025
No acute distress, resting comfortably in bed. Reports improvement in cough. Noted intermittent liquid bowel movements. Overall reports feeling well.
Objective Data
-
Vital Signs:
Vital Signs
Temp Pulse Resp BP Pulse Ox
97.4 F 79 16 144/82 94
02/14/25 03:34 02/14/25 03:34 02/14/25 03:34 02/14/25 03:34 02/14/25 03:34
I&O
02/13/25 02/14/25 02/15/25
06:59 06:59 06:59
Intake Total 500 / 500 800 / 800
Balance 500 / 500 800 / 800
[2025-02-14 08:44] LABS: Glucose - Point of Care 123 mg/dl (70-99)
[2025-02-14] MEDS: NOVOLOG FLEXPEN-MODERATE RESISTANCE SC (09:09)
[2025-02-14] MEDS: MUCINEX 600 MG PO (09:11)
[2025-02-14] MEDS: DELTASONE 40 MG PO (09:11)
[2025-02-14] MEDS: ELIQUIS 5 MG PO ×2 (09:11→21:41)
[2025-02-14] MEDS: PACERONE 200 MG PO (09:11)
[2025-02-14] MEDS: PROTONIX 40 MG PO (09:11)
[2025-02-14] MEDS: TOPROL XL 12.5 MG PO ×2 (09:15→21:41)
--- NOTE | 2025-02-14 12:25 | CM ---
CM reviewed chart, patient seen in chair.
CM discussed [facility] able to accept patient for return- will require auth.
Clinicals submitted to [facility] and [facility], pending reference #[id number].
[facility] liaison updated.
CM will continue to follow.
Plan; [facility] pending [employer] auth
[facility]
Report: [phone]
[2025-02-14 12:34] LABS: Glucose - Point of Care 159 mg/dl (70-99)
[2025-02-14] MEDS: NOVOLOG FLEXPEN-MODERATE RESISTANCE 1 UNITS SC (13:46)
[2025-02-14] MEDS: NOVOLOG FLEXPEN-MODERATE RESISTANCE 3 UNITS SC (17:30)
[2025-02-14 17:31] LABS: Glucose - Point of Care 241 mg/dl (70-99)
[2025-02-14 20:50] LABS: Glucose - Point of Care 196 mg/dl (70-99)
[2025-02-14] MEDS: CLARITIN 10 MG PO (21:41)
[2025-02-15 06:00] VITALS: BMI 36.5
[2025-02-15] MEDS: SYNTHROID 137 MCG PO (06:36)
[2025-02-15 07:56] LABS: Glucose - Point of Care 110 mg/dl (70-99)
[2025-02-15 08:30] VITALS: BP 153/75
[2025-02-15] MEDS: PROTONIX 40 MG PO (09:31)
[2025-02-15] MEDS: DELTASONE 40 MG PO (09:31)
[2025-02-15] MEDS: ELIQUIS 5 MG PO ×2 (09:31→21:15)
[2025-02-15] MEDS: PACERONE 200 MG PO (09:34)
[2025-02-15] MEDS: TOPROL XL 12.5 MG PO ×2 (09:35→21:21)
[2025-02-15] MEDS: NOVOLOG FLEXPEN-MODERATE RESISTANCE SC (09:35)
--- NOTE | 2025-02-15 11:03 | W.PN.HOSP.TC ---
Addendum entered and electronically signed by Car Dawson MD 02/16/25 08:25:
orthostatic hypotension, suspected neurogenic component, resolved at this time
Original Note:
Today's Communication/Plan
-
Medically stable for discharge Acute Rehab pending insurance auth
Assessment / Plan
Assessment / Plan
Physical Exam
General: Comfortable, Conversant and Obese
HEENT: NormoCephalic, Anicteric and Atraumatic
Respiratory: Clear to auscultation b/l
Cardiac: S1/S2 regular rhythm; No Tachycardia
GI: Soft, Non Tender, Non Distended and Normal Bowel Sounds
Musculoskeletal: No Clubbing, No Cyanosis, No Edema and Other (TRACE stockings in place)
Skin: Warm and Dry; No Rash
Neuro: AOx3 conversant coherent
Psych: Calm
Symptomatic Orthostatic Hypotension, chronic issue
-Has had Cortisol and stim test in the past which was unremarkable; possibly related to afib, recent orthostatics 02/11/25 neg for BP drop on standing though patient was noted still symptomatic dizzy
-S/p IVF
-Neurology consult appreciated
-TRACE stockings; patient has had issues with abd binder in the past and hesitant on use
-Toprol XL reduced to 12.5 mg BID as per Cardio
-DCCV 02/12 successeful
-Continue Midodrine 10mg TID, given symptomatic orthostatic hypotension, some permissive hypertension advisable to help reduce risk of falls and enable further participation physical therapy
-UA negative - no obvious infectious source
-BOB appreciated EF 65-70%
Chronic Cough, suspect bronchitis
Cough possibly 2/2 post-nasal drip
-CXR with evidence of atelectasis vs pneumonia, however procalcitonin neg, monitor off abx
-Appears Euvolemic
-DuoNeb PRN sob/wheezing
-Encourage use of incentive spirometer
-bedtime claritin started 02/13 subsequent improvement in cough noted, scheduled mucinex switched to prn robitussin
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
Neuropathy, lower ext numbness R>L
-Continue prednisone taper, 40 mg daily 7 days then 30 mg daily 7 days then 20 mg daily 7 days then 10 mg daily 7 days (dose reduction by 10 mg starting every )
-Consult PT/OT Appreciated Acute Rehab
-trial low dose gabapentin 100 mg HS attempted but discontinued as no improvement noted and patient does not want to try increased dose
-discussed w/ patient and daughter Vilma, partial recovery from transverse myelitis is usually in the magnitude of months and full recovery is not guaranteed
Paroxysmal Atrial Fibrillation
-Has been on anticoag
-Continue Eliquis
-Continue amiodarone
-Decreased Toprol dose 12.5 daily BID, cont
-DCCV 02/12 successful
Ventricular Tachycardia s/p ICD
-Continue amiodarone
Hypokalemia
-monitor and replete
#Elevated troponin
-likely non ischemic myocardial injury 2/2 to afib
-monitor
-no chest pain
Hypertrophic Obstructive Cardiomyopathy
-Lasix on hold as above
-Monitor Is&Os and Daily Weights
-on BB
Steroid Induced Hyperglycemia and Leukocytosis
-HgbA1c 4.8 in Feb 2025
-Continue Januvia
-Monitor sugars and continue coverage insulin
Hypothyroidism
Iatrogenic hyperthyroidism
-T4 noted elevated
-Synthroid reduced from 150 mcg to 137 mcg daily
-repeat TFTs in 4 weeks.
CKD Stage IIIB
-Creatinine at baseline
#Hemorrhoids
-hgb stable
-prep H prn
#Patient suspected Parkinson's in the past
currently appears very asymptomatic, no significant rigidity or resting tremors
continued follow up with neurology advised
PT/OT appreciated Acute Rehab
DVT proph: Eliquis
Code Status: Full Code
Medically stable for discharge Acute Rehab pending insurance auth
Discussed with patient and patient's daughter Vilma
I spent a total of 36 minutes with the patient or on the floor. More than 50% of this time involved counseling and coordination of care.
Anticipated Discharge: Within 24 hours
Subjective/Interval History
-
Date of Service: February 15, 2025
No acute distress, overall reports feeling well, coughing significantly improved. Denies new acute issues.
Objective Data
-
Vital Signs:
Vital Signs
Temp Pulse Resp BP Pulse Ox
97.6 F 79 20 153/75 99
02/15/25 08:30 02/15/25 08:30 02/15/25 08:30 02/15/25 09:34 02/15/25 08:30
I&O
02/14/25 02/15/25 02/16/25
06:59 06:59 06:59
Intake Total 800 / 800 960 / 960
Balance 800 / 800 960 / 960
[2025-02-15 12:27] LABS: Glucose - Point of Care 180 mg/dl (70-99)
[2025-02-15] MEDS: NOVOLOG FLEXPEN-MODERATE RESISTANCE 1 UNITS SC (13:43)
[2025-02-15 15:06] VITALS: BP 162/96
[2025-02-15] MEDS: NOVOLOG FLEXPEN-MODERATE RESISTANCE 3 UNITS SC (17:12)
[2025-02-15 17:13] LABS: Glucose - Point of Care 239 mg/dl (70-99)
[2025-02-15] MEDS: CLARITIN 10 MG PO (21:15)
[2025-02-15 21:16] LABS: Glucose - Point of Care 220 mg/dl (70-99)
[2025-02-15 22:22] VITALS: BP 147/80; BP 153/81; PULSE 76
[2025-02-15 22:51] VITALS: BP 162/85
[2025-02-16 06:00] VITALS: BMI 36.7
[2025-02-16] MEDS: SYNTHROID 137 MCG PO (06:39)
[2025-02-16 07:00] VITALS: BP 154/85
--- NOTE | 2025-02-16 07:27 | W.PN.HOSP.TC ---
Today's Communication/Plan
-
Check Cdiff
likely discharge Acute Rehab tomorrow.
Assessment / Plan
Assessment / Plan
Physical Exam
General: Comfortable, Conversant and Obese
HEENT: NormoCephalic, Anicteric and Atraumatic
Respiratory: Clear to auscultation b/l
Cardiac: S1/S2 regular rhythm; No Tachycardia
GI: Soft, Non Tender, Non Distended and Normal Bowel Sounds
Musculoskeletal: No Clubbing, No Cyanosis, No Edema and Other (TRACE stockings in place)
Skin: Warm and Dry; No Rash
Neuro: AOx3 conversant coherent
Psych: Calm
Symptomatic Orthostatic Hypotension, suspected neurogenic component, resolved at this time
-Has had Cortisol and stim test in the past which was unremarkable; possibly related to afib, recent orthostatics 02/11/25 neg for BP drop on standing though patient was noted still symptomatic dizzy
-S/p IVF
-Neurology consult appreciated
-TRACE stockings; patient has had issues with abd binder in the past and hesitant on use
-Toprol XL reduced to 12.5 mg BID as per Cardio
-DCCV 02/12 successeful
-Continue Midodrine 10mg TID, given symptomatic orthostatic hypotension, some permissive hypertension advisable to help reduce risk of falls and enable further participation physical therapy
-UA negative - no obvious infectious source
-BOB appreciated EF 65-70%
Chronic Cough, suspect bronchitis
Cough possibly 2/2 post-nasal drip
-CXR with evidence of atelectasis vs pneumonia, however procalcitonin neg, monitor off abx
-Appears Euvolemic
-DuoNeb PRN sob/wheezing
-Encourage use of incentive spirometer
-bedtime claritin started 02/13 subsequent improvement in cough noted, scheduled mucinex switched to prn robitussin
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
Neuropathy, lower ext numbness R>L
-Continue prednisone taper, 40 mg daily 7 days then 30 mg daily 7 days then 20 mg daily 7 days then 10 mg daily 7 days (dose reduction by 10 mg starting every )
-Consult PT/OT Appreciated Acute Rehab
-trial low dose gabapentin 100 mg HS attempted but discontinued as no improvement noted and patient does not want to try increased dose
-discussed w/ patient and daughter Vilma, partial recovery from transverse myelitis is usually in the magnitude of months and full recovery is not guaranteed
Paroxysmal Atrial Fibrillation
-Has been on anticoag
-Continue Eliquis
-Continue amiodarone
-Decreased Toprol dose 12.5 daily BID, cont
-DCCV 02/12 successful
Ventricular Tachycardia s/p ICD
-Continue amiodarone
Hypokalemia
-monitor and replete
#Elevated troponin
-likely non ischemic myocardial injury / to afib
-monitor
-no chest pain
Hypertrophic Obstructive Cardiomyopathy
-Lasix on hold as above
-Monitor Is&Os and Daily Weights
-on BB
Steroid Induced Hyperglycemia and Leukocytosis
-HgbA1c 4.8 in Feb 2025
-Continue Januvia
-Monitor sugars and continue coverage insulin
Hypothyroidism
Iatrogenic hyperthyroidism
-T4 noted elevated
-Synthroid reduced from 150 mcg to 137 mcg daily
-repeat TFTs in 4 weeks.
CKD Stage IIIB
-Creatinine at baseline
#Hemorrhoids
-hgb stable
-prep H prn
#Chronic Diarrhea
Cdiff antigen pos in past but toxin neg received 10 day PO Vanc in January for suspect Cdiff
re-check C diff, discussed with RN reported difficulty in obtaining appropriate sample not contaminated with urine
hold off on PO vanc or imodium prn for now
#Patient suspected Parkinson's in the past
currently appears very asymptomatic, no significant rigidity or resting tremors
continued follow up with neurology advised
PT/OT appreciated Acute Rehab
DVT proph: Eliquis
Code Status: Full Code
Medically stable for discharge Acute Rehab pending insurance auth
Discussed with patient and patient's daughter Vilma
I spent a total of 36 minutes with the patient or on the floor. More than 50% of this time involved counseling and coordination of care.
Anticipated Discharge: Within 24 hours
Subjective/Interval History
-
Date of Service: February 16, 2025
no acute distress, appears well. Reports persistence diarrhea.
Objective Data
-
Vital Signs:
Vital Signs
Temp Pulse Resp BP Pulse Ox
97.5 F 77 20 162/85 96
02/15/25 22:51 02/15/25 22:51 02/15/25 22:51 02/15/25 22:51 02/15/25 22:51
I&O
02/15/25 02/16/25 02/17/25
06:59 06:59 06:59
Intake Total 960 / 960 720 / 720
Balance 960 / 960 720 / 720
[2025-02-16 08:30] LABS: Glucose - Point of Care 145 mg/dl (70-99)
--- NOTE | 2025-02-16 09:22 | CM ---
Addendum entered by Ray Sofia 02/16/25 11:29:
Patient will admit to [facility] tomorrow, potentially may have cdiff.
If cdiff positive, per Chloe, can still admit tomorrow on PO vanco
IMM verbally reviewed, copy provided to daughter, copy on chart
[facility]
Report: [phone]

Plan: D/c to [facility] tomorrow
Original Note:
Auth approved for acute rehab
Start date 02/15 NRD 02/21
Auth ID [id number]
Ref # [id number]
Update to [facility]. Awaiting to confirm bed for today
Plan: [facility]
[2025-02-16] MEDS: NOVOLOG FLEXPEN-MODERATE RESISTANCE SC (09:27)
[2025-02-16] MEDS: PROTONIX 40 MG PO (09:29)
[2025-02-16] MEDS: ELIQUIS 5 MG PO ×2 (09:29→21:47)
[2025-02-16] MEDS: TOPROL XL 12.5 MG PO ×2 (09:29→21:47)
[2025-02-16] MEDS: PACERONE 200 MG PO (09:29)
[2025-02-16] MEDS: DELTASONE 40 MG PO (09:30)
[2025-02-16 09:44] VITALS: BP 149/84; BP 151/75; PULSE 80; PULSE 81
--- NOTE | 2025-02-16 09:55 | PTCARENOTE ---
attempted to obtain orthostatic BP. Patient unable to bear weight to stand. only supine and sitting BPs obtained, see vital signs flowsheet.
[2025-02-16 12:17] LABS: Glucose - Point of Care 191 mg/dl (70-99)
[2025-02-16] MEDS: NOVOLOG FLEXPEN-MODERATE RESISTANCE 1 UNITS SC (12:48)
[2025-02-16 14:21] VITALS: BP 152/79; PULSE 77
[2025-02-16 15:00] VITALS: BP 155/85
[2025-02-16 16:21] LABS: Glucose - Point of Care 292 mg/dl (70-99)
[2025-02-16] MEDS: NOVOLOG FLEXPEN-MODERATE RESISTANCE 5 UNITS SC (17:02)
[2025-02-16 21:31] LABS: Glucose - Point of Care 231 mg/dl (70-99)
[2025-02-16] MEDS: CLARITIN 10 MG PO (21:48)
[2025-02-16 23:00] VITALS: BP 162/90
[2025-02-17] MEDS: SYNTHROID 137 MCG PO (04:55)
[2025-02-17 05:15] VITALS: BMI 36.2
[2025-02-17 07:37] LABS: Glucose - Point of Care 124 mg/dl (70-99)
[2025-02-17] MEDS: NOVOLOG FLEXPEN-MODERATE RESISTANCE SC (07:38)
--- NOTE | 2025-02-17 07:47 | W.PN.HOSP.TC ---
Today's Communication/Plan
-
discharge
Assessment / Plan
Assessment / Plan
Physical Exam
General: Comfortable, Conversant and Obese
HEENT: NormoCephalic, Anicteric and Atraumatic
Respiratory: Clear to auscultation b/l
Cardiac: S1/S2 regular rhythm; No Tachycardia
GI: Soft, Non Tender, Non Distended and Normal Bowel Sounds
Musculoskeletal: No Clubbing, No Cyanosis, No Edema and Other (TRACE stockings in place)
Skin: Warm and Dry; No Rash
Neuro: AOx3 conversant coherent
Psych: Calm
Symptomatic Orthostatic Hypotension, suspected neurogenic component, resolved at this time
-Has had Cortisol and stim test in the past which was unremarkable; possibly related to afib, recent orthostatics 02/11/25 neg for BP drop on standing though patient was noted still symptomatic dizzy
-S/p IVF
-Neurology consult appreciated
-TRACE stockings; patient has had issues with abd binder in the past and hesitant on use
-Toprol XL reduced to 12.5 mg BID as per Cardio
-DCCV 02/12 successeful
-Continue Midodrine 10mg TID, given symptomatic orthostatic hypotension, some permissive hypertension advisable to help reduce risk of falls and enable further participation physical therapy
-UA negative - no obvious infectious source
-BOB appreciated EF 65-70%
Chronic Cough, suspect bronchitis
Cough possibly 2/2 post-nasal drip
-CXR with evidence of atelectasis vs pneumonia, however procalcitonin neg, monitor off abx
-Appears Euvolemic
-DuoNeb PRN sob/wheezing
-Encourage use of incentive spirometer
-bedtime claritin started 02/13 subsequent improvement in cough noted, scheduled mucinex switched to prn robitussin (has not required)
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
Neuropathy, lower ext numbness R>L
-Continue prednisone taper, 40 mg daily 7 days then 30 mg daily 7 days then 20 mg daily 7 days then 10 mg daily 7 days (dose reduction by 10 mg starting every )
-Consult PT/OT Appreciated Acute Rehab
-trial low dose gabapentin 100 mg HS attempted but discontinued as no improvement noted and patient does not want to try increased dose
-discussed w/ patient and daughter Vilma, partial recovery from transverse myelitis is usually in the magnitude of months and full recovery is not guaranteed
Paroxysmal Atrial Fibrillation
-Has been on anticoag
-Continue Eliquis
-Continue amiodarone
-Decreased Toprol dose 12.5 daily BID, cont
-DCCV 02/12 successful
Ventricular Tachycardia s/p ICD
-Continue amiodarone
Hypokalemia
-monitor and replete
#Elevated troponin
-likely non ischemic myocardial injury 2/2 to afib
-monitor
-no chest pain
Hypertrophic Obstructive Cardiomyopathy
-Lasix on hold as above
-Monitor Is&Os and Daily Weights
-on BB
Steroid Induced Hyperglycemia and Leukocytosis
-HgbA1c 4.8 in Feb 2025
-Continue Januvia
-Monitor sugars and continue coverage insulin
Hypothyroidism
Iatrogenic hyperthyroidism
-T4 noted elevated
-Synthroid reduced from 150 mcg to 137 mcg daily
-repeat TFTs in 4 weeks.
CKD Stage IIIB
-Creatinine at baseline
#Hemorrhoids
-hgb stable
-prep H prn
#Chronic Diarrhea
Cdiff antigen pos in past but toxin neg received 10 day PO Vanc in January for suspect Cdiff
02/16 Cdiff neg
imodium prn
#Patient suspected Parkinson's in the past
currently appears very asymptomatic, no significant rigidity or resting tremors
continued follow up with neurology advised
PT/OT appreciated Acute Rehab
DVT proph: Eliquis
Code Status: Full Code
Medically stable for discharge Acute Rehab with outpatient follow up recommendations.
Discussed with patient and patient's daughter Vilma
Total Time Preparing Discharge __40 minutes including examination of the patient, summary of the hospital stay, instructions for continuing care to all relevant caregivers; and preparation of discharge records, prescriptions, and referral
forms if necessary.
Anticipated Discharge: Today
Subjective/Interval History
-
Date of Service: February 17, 2025
no acute distress resting comfortably in bed. Overall reports feeling well. Diarrhea improved. Denies new acute issues. looking forward to Acute Rehab.
Objective Data
-
Vital Signs:
Vital Signs
Temp Pulse Resp BP Pulse Ox
97.8 F 77 14 162/90 97
02/16/25 23:00 02/16/25 23:00 02/16/25 23:00 02/16/25 23:00 02/16/25 23:00
I&O
02/16/25 02/17/25 02/18/25
06:59 06:59 06:59
Intake Total 720 / 720 1040 / 1040
Balance 720 / 720 1040 / 1040
[2025-02-17 08:15] VITALS: BP 159/93
[2025-02-17] MEDS: PACERONE 200 MG PO (09:28)
[2025-02-17] MEDS: DELTASONE 40 MG PO (09:28)
[2025-02-17] MEDS: ELIQUIS 5 MG PO (09:28)
[2025-02-17] MEDS: PROTONIX 40 MG PO (09:29)
[2025-02-17] MEDS: TOPROL XL 12.5 MG PO (09:30)
--- NOTE | 2025-02-17 11:48 | CM ---
CM reviewed chart, care ongoing.
CM reviewed with [facility] liaison, able to accept patient today.
CM will continue to follow for all d.c planning needs.
Plan: D/c to [facility]
Report: [phone]
--- NOTE | 2025-02-17 11:53 | W.DCSUMMARY ---
Discharge Summary
Discharge Data
Date of Admission: 02/09/25
Date of Discharge: 02/17/25
-
Pending Results: No
Discharge Plan
-
Patient Disposition: Acute Rehab Facility
Discharge Diagnosis/Procedures: Atrial Fibrillation status post successful cardioversion
Orthostatic Hypotension
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
Spinal Stenosis
Steroid induced Hyperglycemia
Obesity
Chronic Diarrhea
Iatrogenic Hyperthyroidism
Chronic Kidney Disease Stage III
Hemorrhoids
Hypertrophic Obstructive Cardiomyopathy
History Ventricular Tachycardia status post Defibrillator
History Pacemaker placement
Small R kidney lesions, probably cyst
L adrenal lesion: old hemorrhage or cyst
History Positive Rheumatoid antibodies
Macrocytic anemia
MGUS
Condition: Fair
Diet: Diabetic, Carb Controlled
Activity: With assistance
Driving Restrictions: Not until seen by your Dr
Bathing Restrictions: None
Blood Work: Repeat CBC and BMP with a primary care provider in 1 week of discharge. Repeat Thyroid Function Test with primary care provider in 4 weeks of discharge.
Repeat HEYDI& SPEP and Serum Light Chains in 3 months with primary care provider to follow up on MGUS
Others Tests: repeat CT abd/pelvis in 6 months of discharge
Other Services: PT and OT
Activity Restrictions/Additional Instructions:
Follow up with primary care provider in 1 week of discharge. In 2-4 weeks of discharge, follow up with Neurology, Rheumatology, GI, and Cardiology
A slow prednisone taper has been prescribe as per neurology recommendation for possible Multiple Sclerosis vs Clinical Isolated Syndrome vs Transverse Myelitis. Your current dose is 40 mg daily 2 days, 30 mg daily 7 days, then 20 mg daily 7 days,
then 10 mg daily 7 days. Dose to be reduced by 10 mg every Tues.
Follow up with Neurology before your steroid taper completes in case of need of adjustment or extension of your steroid regimen.
Protonix has been prescribed for GI prophylaxis while on snf steroids. Ok to consider discontinuing when off steroids.
Synthroid reduced to 137 mcg daily due to concerns iatrogenic Hyperthyroidism.
Metoprolol reduced to 12.5 mg twice a day due to symptomatic orthostatic hypotension since resolved.
Imodium prescribed as needed for diarrhea.
Claritin prescribed as needed for allergies/post-nasal drip
Referrals:
Cuco Adame MD [Active, Gastroenterology] - in two to four weeks
Bernardino Medrano MD [Active, Neurology] - in two to four weeks
Felice Mccain MD [Active, Rheumatology] - in two to four weeks
Kyung Ventura DO [Active, Cardiology] - in two to four weeks
Jp Mccabe MD [Family Provider, Internal Medicine] - in one week
Prescriptions:
New
loratadine 10 mg Tablet
10 mg PO HS PRN (Reason: allergy symptoms/post-nasal drip) Qty: 30 0RF
levothyroxine 137 mcg Tablet
137 mcg PO DAILY @ 0600 Qty: 30 0RF
loperamide 2 mg Capsule
2 mg PO Q6HPRN PRN (Reason: diarrhea) Qty: 10 0RF
metoprolol succinate 25 mg Tablet Extended Release 24 Hr
12.5 mg PO BID Qty: 30 0RF
prednisone 10 mg Tablet
See Rx Instructions .ROUTE .COMPLEX Qty: 50 0RF
Rx Instructions:
Take By Mouth (reduce 10 mg every ):
40 mg daily x2 days,
30 mg daily x7 days, 20 mg daily x7 days,
10 mg daily x7 days
Continued
Eliquis 5 MG tablet
5 mg PO BID Qty: 60 11RF
cyanocobalamin (vitamin B-12) 1,000 MCG tablet
1,000 mcg PO DAILY
amiodarone [Pacerone] 200 MG tablet
200 mg PO DAILY
furosemide 20 mg Tablet
20 mg PO DAILY
rnlhbgrgricz-rzrxtjto-pojucf Tablet
1 tab PO DAILY
thiamine mononitrate (vit B1) 100 mg Tablet
100 mg PO DAILY Qty: 100 0RF
pantoprazole 40 mg Tablet,Delayed Release (Dr/Ec)
40 mg PO DAILY Qty: 30 0RF
Preparation H Maximum Strength 0.25-1 % Cream
1 applic IL Q6HPRN PRN (Reason: hemorrhoid discomfort) Qty: 51 0RF
magnesium oxide 400 mg magnesium Tablet
400 mg PO DAILY
midodrine 5 mg tablet
10 mg PO TID@0800,1300,1800
Discontinued
hydrocortisone acetate 25 mg Suppository
25 mg IL HS PRN (Reason: hemorrhoids) Qty: 12 0RF
prednisone 10 mg Tablet
See Rx Instructions .ROUTE .COMPLEX Qty: 105 0RF
Rx Instructions:
Take By Mouth:
50 mg daily x7 days, 40 mg daily x7 days,
30 mg daily x7 days, 20 mg daily x7 days,
10 mg daily x7 days
miconazole nitrate [Miconazorb AF] 2 % Powder
1 applic topical BID Qty: 85 0RF
Rx Instructions:
Skin folds fungal infection
levothyroxine 150 mcg Tablet
150 mcg PO DAILY @ 0600 Qty: 30 0RF
metoprolol succinate 50 mg tablet extended release 24 hr
50 mg PO DAILY
potassium tablet
Patient Comments:
Patient is unsure of dosage
Discharge Orders:
Discharge Patient (As Directed); Ordered 02/17/25
Ordered By: Car Dawson
Discharge Date and Time
Print Language: CZECH
[2025-02-17 12:04] LABS: Glucose - Point of Care 153 mg/dl (70-99)
[2025-02-17] MEDS: NOVOLOG FLEXPEN-MODERATE RESISTANCE 1 UNITS SC (13:11)
[2025-02-17 13:32] VITALS: BP 146/78
== END 2025-02-17 14:22 | DRG 56 ==
LOC: 4 WEST ACU 23:05
PROVIDERS: Internal Medicine; Internal Medicine Cardiovascular Disease; Nurse Practitioner Gerontology; Physician Assistant; Physician Assistant Medical; ADMITTING PHYSICIAN Internal Medicine; ATTENDING PHYSICIAN Internal Medicine; CONSULT PHYSICIAN Internal Medicine Cardiovascular Disease; CONSULT PHYSICIAN Psychiatry & Neurology Neurology; EMERGENCY PHYSICIAN Emergency Medicine; FAMILY PHYSICIAN Internal Medicine
PROC: B24BZZ4 Ultrasonography of Heart with Aorta, Transesophageal (ICD-10-PCS; 2025-02-12)
PROC: 5A2204Z Restoration of Cardiac Rhythm, Single (ICD-10-PCS; 2025-02-12)
PROC: 4B02XTZ Measurement of Cardiac Defibrillator, External Approach (ICD-10-PCS; 2025-02-12)
DX: G90.3 Multi-system degeneration of the autonomic nervous system (principal); I50.33 Acute on chronic diastolic (congestive) heart failure; G37.3 Acute transverse myelitis in demyelinating disease of central nervous system; I5A Non-ischemic myocardial injury (non-traumatic); I13.0 Hypertensive heart and chronic kidney disease with heart failure and stage 1 through stage 4 chronic kidney disease, or unspecified chronic kidney disease; I47.20 Ventricular tachycardia, unspecified; I42.1 Obstructive hypertrophic cardiomyopathy; I48.0 Paroxysmal atrial fibrillation; J40 Bronchitis, not specified as acute or chronic; E87.6 Hypokalemia; R06.89 Other abnormalities of breathing; N18.32 Chronic kidney disease, stage 3b; D53.9 Nutritional anemia, unspecified; D47.2 Monoclonal gammopathy; K64.9 Unspecified hemorrhoids; T38.0X5A Adverse effect of glucocorticoids and synthetic analogues, initial encounter; E03.9 Hypothyroidism, unspecified; E11.65 Type 2 diabetes mellitus with hyperglycemia; E11.22 Type 2 diabetes mellitus with diabetic chronic kidney disease; E27.9 Disorder of adrenal gland, unspecified; E66.812 Obesity, class 2; M48.00 Spinal stenosis, site unspecified; M06.9 Rheumatoid arthritis, unspecified; G20.A1 Parkinson's disease without dyskinesia, without mention of fluctuations; D72.829 Elevated white blood cell count, unspecified; Z11.52 Encounter for screening for COVID-19; Z68.36 Body mass index [BMI] 36.0-36.9, adult; Z79.01 Long term (current) use of anticoagulants; Z79.890 Hormone replacement therapy; Z87.891 Personal history of nicotine dependence; Z79.899 Other long term (current) drug therapy; Z95.810 Presence of automatic (implantable) cardiac defibrillator
CPT/HCPCS: 71045; 80048; 80053; 81003; 81015; 82962; 83735; 83880; 84100; 84145; 84439; 84443; 84484; 85025; 85027; 87070; 87324; 87449; 87502; 87811; 92960; 93005; 93312; 93320; 93325; 94640; 96360; 97110; 97116; 97163; 97167; 97530; 97535; 99285

== ENCOUNTER 2025-02-18 09:23 | Inpatient (IN) | payer MEDICARE, SELFPAY ==
[2025-02-18] VITALS (8 sets, daily range): BP systolic 110–133; BP diastolic 62–79; BMI 37.5
--- NOTE | 2025-02-18 06:50 | ED.GENMED ---
History of Present Illness
General
Chief Complaint: Rectal Bleeding
Source: patient and other (Nurses from [facility])
Exam Limitations: none
Time Seen by Provider: 02/18/25 06:33
History of Present Illness
History of Present Illness:
3-4 episodes of bright red rectal bleeding with clots. No abdominal pain no lightheadedness no weakness. History of same. Patient on Eliquis. This discharge for episode of ongoing orthostatic hypotension
Past History
Past History
ED Past Medical History: Arrthythmia (V. tach), HTN, Hypercholesterolemia, Hypothyroidism and Other (RA, colon Polyps)
ED Past Surgical History: Cardiac (Pacemaker/defibrillator), Cholecystectomy, Gynecological (Hysterectomy), Orthopedic (bilateral knee replacements) and Other (noncontributory )
Social History
Tobacco: Former smoker (quit 20 years ago)
Alcohol: None
Drug: None
Personal:
Living: with family
Employment: Retired
Family History
Family History: Other (Reviewed and noncontributory)
Review of Systems
Review of Systems
All Other Systems: Not applicable
Cardiac: Reports no symptoms
ABD/GI: Reports no symptoms
Phy Exam
Physical Exam
Physical Exam:
GENERAL: Alert and oriented in no apparent distress. Elderly and frail. Chronically ill-appearing.
EYE: Orbits normal.
NECK: Supple, no significant adenopathy.
ENT: Pharynx without erythema
CARDIAC: Regular rate and rhythm without any obvious murmurs. Pacemaker
LUNGS: Clear breath sounds,normal
ABDOMEN: Soft, without focal tenderness or distention. Elevated BMI. Nontender
NEUROLOGICAL: Alert and oriented , grossly non-focal
SKIN: Warm and dry, chronic hyperpigmentation changes to the lower extremities
MUSCULOSKELETAL: Chronic edema
PSYCH: Normal and appropriate interaction.
Course
Orders/Labs/Results
Orders:
Orders
02/18/25 Breakfast
Clear Liquid
At Your Request: Full Participation
02/18/25 06:33
Cardiac Monitoring- Treatment ONCE
IV Insert/Care/Rem.- Treatment PRN
O2 Therapy [RESP] Urgent
Titrate/Wean O2 to maintain O2 sat greater than (%): 93
Special Instructions: MAINTAIN CONTINOUS O2 SATS > OR = 93%
Pulse Ox/spot Check [RESP] Urgent
Quantity: 1
Special Instructions: ON ROOM AIR
02/18/25 06:38
Type+Screen Urgent
Complete Blood Count/With Diff Urgent
Comprehensive Metabolic Panel Urgent
Ferritin Urgent
Comment: ADD ON
Folate Urgent
Comment: ADD ON
Iron Urgent
Comment: ADD ON
PTT Urgent
Prothrombin Time Urgent
Total Iron Binding Urgent
Comment: ADD ON
Vitamin B12 Urgent
Comment: ADD ON
02/18/25 09:07
Admit/Transfer Patient As Directed
Co-Sign Provider:
Level of Care: Inpatient admission
Assign to:: Telemetry
Physician / Group: Car Dawson
Diagnosis: Bright Red Blood Per Rectum on Eliquis
Reason for Telemetry: Arrhythmia
Date to Stop Telemetry: 02/21/25
Time to Stop Telemetry: 11:00
Reason for Hospitalization: Bright Red Blood Per Rectum on Eliquis
Expected length of stay greater than two midnights?: Yes
ELOS- Estimated Length of Stay in days: 2
I certify the patient meets the requirements for IP care: Yes
PRN Pain Medication Management As Directed
May give lesser potent ordered pain med per pt: Yes
preference::
Protocol:: Medication orders for pain may be administered in a
manner that supports deferring to patient preference
when the pt is:
- Requesting an ordered lesser potent pain medication.
Least to most potent pain medications are defined
as: acetaminophen < NSAID < tramadol < opioids
(morphine, oxycodone, hydromorphone).
- Requesting a lesser dose of the same medication IF
ORDERED.
- Requesting a less intrusive route of administration
if both routes are prescribed by the provider (PO <
IV).
02/18/25 09:13
Code Status As Directed
Resuscitation Status: Full Code
02/18/25 10:53
Acetaminophen [Tylenol] 650 mg PO Q4HPRN PRN
Amiodarone [Pacerone] 200 mg PO DAILY
Bisacodyl [Dulcolax] 10 mg RECTAL [id number] PRN
Docusate W/Senna [Senokot-S] 1 tablet PO BIDPRN PRN
Heparin 39517 Units/250 ml 25,000 units in 250 ml IV PER PROTOCOL
Weight to be used for heparin protocol in kilograms (kg):: 105.4
Protocol:: Cardiac Tx/Acute Coronary
PTT Goal Range to be used:: PTT 73 to 111 seconds
Order type:: Initial
INITIAL Infusion Dose (UNITS/KG/hr) & then follow protocol:: 12 units/kg/hr
Infusion Dose in UNITS/hr & then follow protocol (UNITS/hr):: 1,000
INFUSION RATE in mL/hr & then follow protocol (mL/hr):: 10
PTT less than or equal to 64 seconds:: Increase rate by 200 units/hr (+ 2 mL/hr)
PTT 64.1 to 72.9 seconds:: Increase rate by 100 units/hr (+ 1 mL/hr)
PTT 73 to 111 seconds:: Target Range. No change in rate.
PTT 111.1 to 130.9 seconds:: Decrease rate by 100 units/hr (- 1 mL/hr)
PTT 131 to 199.9 seconds:: HOLD for 1 hr. Then decrease rate by 200 units/hr (- 2 mL/hr)
PTT greater than or equal to 200 seconds:: HOLD for 2 hrs & Notify Provider. Then decrease by 200 units/hr (-
2 mL/hr)
Lab follow-up:: Each change, PTT q6h until 2 consecutive are therapeutic. Then PTT
daily.
Loperamide [Imodium] 2 mg PO Q6HPRN PRN diarrhea
Loratadine [Claritin] 10 mg PO HSPRN PRN allergy symptoms/post-nasal drip
Pharmacy Request to Place See Dose Instructions IV DIRECTED
Pharmacy Request to Place See Dose Instructions PO NOW STA
Discontinue all Active Warfarin orders?: Not Applicable
Phenyleph/Pramoxin/Glycr/W.pet [Preparation H Max Strength Pain Relief Cream] 1 applic RECTAL Q6HPRN PRN hemorrhoid discomfort
Polyethylene Glycol Powder [Miralax] 17 grams PO DAILYPRN PRN
Prednisone [Deltasone] 40 mg PO DAILY
02/18/25 10:53
Heparin Protocol- PTT Orders As Directed
PTT per Heparin protocol: -Obtain CBC and baseline PTT - if not already collected.
-Obtain PTT 6 hours from start of infusion. Then, every 6 hours until 2 consecutive
PTT's are therapeutic. Then, PTT Daily.
-With each rate change, obtain PTT every 6 hours until 2 consecutive PTT's are
therapeutic. Then, PTT Daily.
Activity As Directed
Activity Level: With Assistance
Notify MD As Directed
Notify physician if: PTT is greater than or equal to 200.
Vital Signs As Directed
Frequency: Per unit guidelines
02/18/25 11:30
Pantoprazole [Protonix IV] 40 mg IV BID
02/18/25 12:20
H&H NOON
02/18/25 13:00
Midodrine [ProAmatine] 10 mg PO TID@0800,1300,1800
02/18/25 18:00
H&H QPM
02/18/25 20:00
Metoprolol Xl [Toprol Xl] 12.5 mg PO BID
02/19/25 06:00
Basic Metabolic Panel IN AM
Complete Blood Count/No Diff IN AM
Magnesium IN AM
Levothyroxine [Synthroid] 137 mcg PO DAILY @ 0600
02/19/25 08:00
Magnesium Oxide 400 mg PO DAILY
Multivitamin [Theragran] 1 tablet PO DAILY
Thiamine HCl [Vitamin B1] 100 mg PO DAILY
02/20/25 06:00
Basic Metabolic Panel IN AM
Complete Blood Count/No Diff IN AM
Magnesium IN AM
02/21/25 06:00
Basic Metabolic Panel IN AM
Complete Blood Count/No Diff IN AM
Magnesium IN AM
02/21/25 11:00
DC Protocol for Telemetry ONCE
02/22/25 06:00
Basic Metabolic Panel IN AM
Complete Blood Count/No Diff IN AM
Magnesium IN AM
02/23/25 06:00
Basic Metabolic Panel IN AM
Complete Blood Count/No Diff IN AM
Magnesium IN AM
02/24/25 06:00
Basic Metabolic Panel IN AM
Complete Blood Count/No Diff IN AM
Magnesium IN AM
02/25/25 06:00
Basic Metabolic Panel IN AM
Complete Blood Count/No Diff IN AM
Magnesium IN AM
Abnormal Lab Results
02/18/25
06:38
RBC 2.55 L 10^6/uL
(4.20-5.40)
Hgb 8.8 L g/dL
(12.0-16.0)
Hct 28.3 L %
(37.0-47.0)
MCV 111.0 H fL
(81.0-99.0)
MCH 34.5 H pg
(27.0-31.0)
MCHC 31.1 L g/dL
(33.0-37.0)
Abs Immat Gran (auto) 0.1 H 10^3/uL
(0-0.05)
Absolute Neuts (auto) 6.6 H 10^3/uL
(1.4-6.5)
Absolute Lymphs (auto) 1.0 L 10^3/uL
(1.2-3.4)
Immature Gran % 0.6 H %
(0-0.5)
Neutrophils % 82.0 H %
(42.2-75.2)
Lymphocytes % 12.2 L %
(20.5-51.1)
PT 17.9 H Sec
(11.4-14.6)
Carbon Dioxide 32 H mmol/L
(22-30)
BUN 31 H mg/dl
(7-17)
Glucose 137 H mg/dl
(70-99)
Calcium 7.8 L mg/dl
(8.4-10.2)
TIBC 226 L ug/dl
(265-497)
Total Protein 4.8 L g/dl
(6.3-8.2)
Albumin 2.5 L g/dl
(3.5-5.0)
02/18/25 06:38
02/18/25 06:38
Vital Signs
Initial and Last Documented VS:
Initial Vital Signs
Temp Pulse Resp BP Pulse Ox
97.8 F 75 18 123/72 96
02/18/25 06:34 02/18/25 06:34 02/18/25 06:34 02/18/25 06:34 02/18/25 06:34
Last Documented Vital Signs
Temp Pulse Resp BP Pulse Ox
97.6 F 79 18 131/66 96
02/18/25 11:00 02/18/25 12:27 02/18/25 11:00 02/18/25 12:27 02/18/25 11:00
MDM/Problems Addressed
Differential Diagnosis Includes:
Patient describing recurrent lower GI bleed in the last 12 hours or so. Picture from the nurse at the facility showed a relatively large bright red clot with a moderate amount of blood. This clinically is not an external issue. She clearly feels
like she is passing blood. She is clinically stable and not acutely ill. However given the recurring episodes along with the anticoagulation patient will clearly require readmission. I cannot find a GI consult from her last admission although
there was mention of getting 1.
*Pulse Oximetry
SaO2: 96
Oxygen Mode of Delivery: Room air
Patient hypoxic: no
*Critical Care Note
Total Time (30-74mins, 75-104mins- exclusive of procedures): Not Applicable
Data Reviewed
Review of Other/Old Records Reveals: Labs, Records, Progress Notes and Discharge Summary
ED Attending Note
-
Portions of this chart may have been created with voice recognition software.� Occasional wrong word or��sound alike� substitutions may have occurred due to the inherent limitations of voice recognition software.
Discharge Plan
Departure
Patient Disposition: Admit
Date of Disposition: 02/18/25
Time of Disposition: 07:16
Presentation/result/management discussed w/ accepting MD/DO: Hospitalist
Discharge Problem:
Lower GI bleed, Chronic anemia, DOAC
Interventions
Interventions:
*Risk Screen - Suicide Last Done: 02/18/25 06:34
*General Assessment Last Done: 02/18/25 06:34
*Neglect/Abuse Screening Last Done: 02/18/25 06:34
*ED COVID-19 Vaccine History Last Done: 02/18/25 06:34
*ED Influenza Vaccine History Last Done: 02/18/25 06:34
[facility] Fall Risk Assessment Tool Last Done: 02/18/25 06:49
*Nursing Disposition Last Done: 02/18/25 10:45
YT-Bttotq-Whhdetbexq Assessment Last Done: 02/18/25 06:51
ED- Cardiac Assessment Last Done: 02/18/25 06:51
ED- Pulmonary Assessment Last Done: 02/18/25 06:51
Discharge Date and Time
Discharge Date/Time: 02/18/25 11:35
[2025-02-18 06:56] LABS: Hematocrit 28.3 % (37.0-47.0); Hemoglobin 8.8 g/dL (12.0-16.0); Mean Corp Hgb Conc. 31.1 g/dL (33.0-37.0); Mean Corpuscular Volume 111.0 fL (81.0-99.0); Nucleated Red Blood Cells % 0 %; Platelet Count 226 10^3/uL (130-400); Red Cell Dist. Width 14.4 % (11.5-14.5)
[2025-02-18 07:01] LABS: INR 1.47; PT 17.9 Sec (11.4-14.6)
[2025-02-18 07:02] LABS: APTT 30.0 Sec (23.4-35.0)
[2025-02-18 07:20] LABS: ALT (SGPT) 28 U/L (0-35); AST (SGOT) 27 U/L (14-36); Albumin 2.5 g/dl (3.5-5.0); Alkaline Phosphatase 52 U/L (38-126); Blood Urea Nitrogen 31 mg/dl (7-17); Calcium 7.8 mg/dl (8.4-10.2); Carbon Dioxide 32 mmol/L (22-30); Chloride 105 mmol/L (98-107); Estimated Creatinine Clearance 61 ml/min; Glucose 137 mg/dl (70-99); Potassium 3.6 mmol/L (3.5-5.1); Sodium 138 mmol/L (135-145); Total Protein 4.8 g/dl (6.3-8.2); eGFR > 60.00
--- NOTE | 2025-02-18 08:41 | HPS.HSE ---
Family Physician
-
Family Physician: Jp Mccabe
Chief Complaint
-
Bright Blood Per rectum
History of Present Illness
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
Obesity, Hypothyroidism, CKDIII, hemorrhoids, HOCM, hx Vtach PPM/ICD, Rheumatoid arthritis, MGUS. Patient was discharged to Acute Rehab 02/05-02/09, returned for evaluation symptomatic orthostatic hypotension resolved with adjustment cardiac
medications (discontinuation Lasix 20 mg daily and reduction Metoprolol to 12.5 mg BID) and successful cardioversion 02/12 symptomatic afib. Discharged to Acute rehab 02/17, patient returns next day d/t new onset large bright red blood per rectum
with clots overnight. VSS, Hgb baseline. Patient otherwise reports feeling well denies lightheadedness sob.
Medical History
Past Medical History
Past Medical History: Reports Other (as above)
Past Surgical History: Reports Other (as above)
Social History
Tobacco: Former Smoker
Alcohol: None
Drug: None
Living: With Family
Employment: Retired
Family History
Family History: Not pertinent (reviewed)
Allergies / Home Medications
Allergies reflects when Allergies were last updated in [facility].
Home Medications with original date entered in [facility]
Allergy/Medication List:
Allergies
Allergy/AdvReac Type Severity Reaction Status Date / Time
celecoxib Allergy stomach Verified 02/18/25 06:40
pains
codeine Allergy nausea/vomi Verified 02/18/25 06:40
ting
Home Medications
apixaban 5 mg tablet (Eliquis) 5 mg PO BID #60 tabs 05/18/17
cyanocobalamin (vitamin B-12) 1,000 mcg tablet 1,000 mcg PO DAILY Supplement 02/19/18
amiodarone 200 mg tablet (Pacerone) 200 mg PO DAILY Arrhythmia 12/23/18
furosemide 20 mg tablet 20 mg PO DAILY Fluid Retention/Swelling 11/21/24
ntnbzccakbms-ishwqpuj-hrzixa tablet 1 tab PO DAILY Supplement 11/21/24
thiamine mononitrate (vit B1) 100 mg tablet 100 mg PO DAILY #100 tabs 12/01/24
pantoprazole 40 mg tablet,delayed release 40 mg PO DAILY #30 tabs 02/05/25
phenylephrine 0.25 %-pramoxine 1 %-glycerin-wh.petrolatum rectal cream (Preparation H Maximum Strength) 1 applic FL Q6HPRN PRN hemorrhoid discomfort #51 grams 02/05/25
magnesium oxide 400 mg PO DAILY 02/09/25
midodrine 5 mg tablet 10 mg PO TID@0800,1300,1800 02/09/25
levothyroxine 137 mcg tablet 137 mcg PO DAILY @ 0600 #30 tabs 02/17/25
loperamide 2 mg capsule 2 mg PO Q6HPRN PRN diarrhea #10 caps 02/17/25
loratadine 10 mg tablet 10 mg PO HS PRN allergy symptoms/post-nasal drip #30 tabs 02/17/25
metoprolol succinate 25 mg tablet,extended release 24 hr 12.5 mg (1/2 x 25 mg) PO BID #30 tabs 02/17/25
prednisone 10 mg tablet See Rx Instructions .Route .COMPLEX #50 tabs 02/17/25
Review of Systems
-
A 12 point ROS was completed and negative except as noted: Yes
Constitutional: Reports Other (as below)
Physical Exam
Vital Signs
Vital Signs
Temp Pulse Resp BP Pulse Ox
97.8 F 76 20 123/75 98
02/18/25 06:34 02/18/25 08:15 02/18/25 08:15 02/18/25 08:00 02/18/25 08:15
Physical Exam
General: Other (as below)
Laboratory Results
-
02/18/25 06:38
02/18/25 06:38
Laboratory Results
PT 17.9 Sec (11.4-14.6) H 02/18/25 06:38
INR 1.47 02/18/25 06:38
APTT 30.0 Sec (23.4-35.0) 02/18/25 06:38
Total Bilirubin 0.7 mg/dl (0.2-1.3) 02/18/25 06:38
AST 27 U/L (14-36) 02/18/25 06:38
ALT 28 U/L (0-35) 02/18/25 06:38
Alkaline Phosphatase 52 U/L (38-126) 02/18/25 06:38
Impression/Plan
-
ROS
General: Denies fever chills night sweats unexpected weight loss
Neuro: Denies seizure loss of consciousness dizziness vertigo reports Lower ext numbness R>L ongoing for months
Psych: denies depression hallucinations confusion manic episodes
Endocrine: Denies polyuria polydipsia polyphagia heat/cold intolerance
HEENT: Denies blindness visual disturbances epistaxis
Pulmonary: denies coughing hemoptysis sneezing sob dyspnea on exertion
Cardiovascular: denies chest pain palpitations leg swelling
Hematology: denies signs symptoms of anemia easy bruising/bleeding
Gastrointestinal: denies nausea vomiting constipation hematemesis reports chronic diarrhea bright red blood per rectum
Genito-Urinary: denies retention incontinence dysuria
Musculoskeletal: denies joint pain weakness
Dermatology: denies rash laceration bruising
Physical Exam
General: No pallor, cyanosis, or jaundice. Obese
HEENT: Throat clear. PERRLA Normocephalic atraumatic
NECK: Supple. No JVD Carotid Bruits
RESPIRATORY: Lungs clear to auscultation. No crackles wheezes stridor
CVS: S1, S2 normal. RRR. No murmur, rub or gallop.
ABDOMEN: Soft, non-tender. No distension. BS+/normal.
EXTREMITIES: No peripheral cyanosis or edema.
JUNIOR PHP DEVELOPER: AOx3 conversant coherent strength 4/5 Lower Ext's b/l, Numbness R>L
IMPRESSION:
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
Obesity, Hypothyroidism, CKDIII, hemorrhoids, HOCM, hx Vtach PPM/ICD, Rheumatoid arthritis, MGUS. Patient was discharged to Acute Rehab 02/05-02/09, returned for evaluation symptomatic orthostatic hypotension resolved with adjustment cardiac
medications (discontinuation Lasix 20 mg daily and reduction Metoprolol to 12.5 mg BID) and successful cardioversion 02/12 symptomatic afib. Discharged to Acute rehab 02/17, patient returns next day d/t new onset large bright red blood per rectum
with clots overnight. VSS, Hgb baseline. Patient otherwise reports feeling well denies lightheadedness sob.
PLAN:
#Lower GI bleed
#Hemorrhoids
#Chronic Macrocytic Anemia
VSS, H&H stable
Tele admit
IV Protonix 40 mg BID ([employer] Protonix 40 mg PO daily GI ppx for steroids)
given recent Cardioversion 02/12 will hold Eliquis but continue anticoagulation w/ hep gtt
monitor H&H, transfuse prn Hgb<8
Preparation H prn hemorrhoid discomfort
GI eval
Clear liquid diet for now
#pAtrial Fibrillation s/p cardioversion 02/12
#VT s/p ppm/ICD
#HOCM
cont Amiodarone and Metoprolol XL 12.5 mg BID w/ holding parameters
Eliquis on hold, hep gtt as above
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
Neuropathy, lower ext numbness R>L
-Continue prednisone taper, 40 mg daily (dose reduction by 10 mg starting every Tu until complete, patient advised to follow up with Neurology before completion)
-discussed w/ patient and daughter Vilma, partial recovery from transverse myelitis is usually in the magnitude of months and full recovery is not guaranteed
Steroid Induced Hyperglycemia and Leukocytosis
-HgbA1c 4.8 in Feb 2025
-low dose sliding scale for now
Hypothyroidism
-Synthroid recently reduced from 150 mcg to 137 mcg daily due to concerns iatrogenic Hyperthyroidism
-follow up Repeat TFTs in early March recommended
Orthostatic Hypotension
-cont home midodrine 10 mg TID w/ holding parameters SBP>160
CKDIII
monitor
Chronic Diarrhea
Cdiff antigen pos in past but toxin neg received 10 day PO Vanc in January for suspect Cdiff
02/16 Cdiff neg
imodium prn
Allergic Rhinitis/Post-nasal drip/Cough
cough resolved at this time
Claritin HSPRN
#Patient suspected Parkinson's in the past
currently appears very asymptomatic, no significant rigidity or resting tremors
continued follow up with neurology advised
Small R kidney lesions, probably cyst
L adrenal lesion: old hemorrhage or cyst
-follow up CT in 6 mo recommended
History Positive Rheumatoid antibodies
-follow up with rheumatology recommended
MGUS
-Hematology evaluated 01/15 and assessed low risk MGUS, Repeat HEYDI& SPEP and Serum Light Chains in 3 months and follow up with PCP recommended
PT/OT
dvt ppx hep gtt
Full Code
Discussed with patient and patient's daughter Vilma
I spent a total of 80 minutes with the patient or on the floor. More than 50% of this time involved counseling and coordination of care.
--- NOTE | 2025-02-18 09:59 | EDCM ---
Reviewed chart and met with pt bedside in ED. Pt has a history of orthostatic hypotension, recently admitted from 02/09 to 02/17, discharged yesterday to [place]. Sent to ED from [place] for rectal bleeding.
Lives with daughter in 2 SH, 2 [address]UA[address], first floor half bath, full flight to second floor bedroom and full bath.
DME: Hospital bed, stair walker, rollator, wheelchair, shower chair and grab bars in shower. Has Pacemaker/ICD.
Pt was ambulating with Rollator prior to December 2024 admission, needs assistance with ADLs and personal care.
Confirms prescription coverage.
hx [facility] for RN/PT/OT
Pt has had caregivers from [facility] in the past. Has LTC insurance.
Pt would like to return to [place] when medically cleared for discharge. CM will continue to follow for all discharge planning needs.
[2025-02-18 11:01] LABS: Iron 51 ug/dl (37-170); Total Iron Binding Capacity 226 ug/dl (265-497)
--- NOTE | 2025-02-18 11:12 | CON.GI ---
Consultation
-
Date/Time Consultation Requested: 02/18/25
Date/Time Consultation Performed: 02/18/25
Requesting Provider: Dr. Dawson
Performing Provider: Dr. Martínez
Reason for Consultation: BRBPR, anemia
Medical History
Chief Complaint / HPI
Chief Complaint: BRBPR
History of Present Illness:
Pilar Rojo is an 79-year-old female with past medical history of A-fib on Eliquis, V. tach s/p PPM/ICD, MGUS, hypertension, hyperlipidemia, hypothyroidism, RA, history of cholecystectomy, hysterectomy, history of colon polyps (prior flat polyp
removed by Dr. Mcgregor in 2017), obesity, admitted from rehab with BRPR with clots. Her hemoglobin 8.8, previously 9.0 on 02/13.
Of note, 2 recent admissions with shock like picture with GI bleeding, her hemoglobin initially dropped around November from 13 to ~10s, has remained in the 8-9 range since. She was again admitted from 02/09-02/12 again with shock like picture,
initially started on abx with c/f sepsis and pressors in addition to fludrocortisone, c/f adrenal insufficiency. MRI thoracic spine showed 3 focal areas of increased T2 and STIR signal within the spinal cord, LP performed but not enough fluid
collected for analysis. She was started on a steroid taper, main differential diagnoses are transverse myelitis vs. MS vs. clinical isolated syndrome. She was cardioverted on 02/12. Discharged to rehab on 02/17 only to return today with recurrent
BRBPR. She had colonoscopy 09/2024- burks 2 mm polyp appendiceal orifice, lipoma AC, diverticulosis, external hemorrhoids. ? EGD years ago. No NSAID use. Her main complaint is a constant sensation to urinate followed by pain in her hemorrhoids. She
states the pressure builds and then she feels a 'pop' sensation, and it resolves. This sensation lasts seconds and has happened several times.
Past Medical History
Past Medical History: Arrhythmias (V tach, AFib on Eliquis ), HTN, Hypercholesterolemia, Hypothyroidism and Other (RA, venous insufficiency, colon polyps, B12 deficiency, )
Past Surgical History: Cardiac (pacer, ICD), Cholecystectomy, Gynecological (hysterectomy, D+C), Orthopedic (b/l TKR, carpel tunnel repair, foot surgery ), Tonsilectomy and Other (skin Ca removal, cataracts )
Social History
Tobacco: Non-Smoker
Alcohol: None
Drug: None
Living: With Family
Employment: Retired
Family History
Family History: Other (no family hx GI issues )
Allergies / Home Medications
Allergy/AdvReac Type Severity Reaction Status Date / Time
celecoxib Allergy stomach Verified 02/18/25 06:40
pains
codeine Allergy nausea/vomi Verified 02/18/25 06:40
ting
�Medication �Instructions �Recorded
apixaban 5 mg tablet (Eliquis) 5 mg PO BID #60 tabs 05/18/17
cyanocobalamin (vitamin B-12) 1,000 mcg PO DAILY Supplement 02/19/18
1,000 mcg tablet
amiodarone 200 mg tablet (Pacerone) 200 mg PO DAILY Arrhythmia 12/23/18
furosemide 20 mg tablet 20 mg PO DAILY Fluid 11/21/24
Retention/Swelling
rvkpquqhgabc-rrdifkjs-dnfzob tablet 1 tab PO DAILY Supplement 11/21/24
thiamine mononitrate (vit B1) 100 100 mg PO DAILY #100 tabs 12/01/24
mg tablet
pantoprazole 40 mg tablet,delayed 40 mg PO DAILY #30 tabs 02/05/25
release
phenylephrine 0.25 %-pramoxine 1 1 applic NV Q6HPRN PRN hemorrhoid 02/05/25
%-glycerin-wh.petrolatum rectal discomfort #51 grams
cream (Preparation H Maximum
Strength)
magnesium oxide 400 mg PO DAILY 02/09/25
midodrine 5 mg tablet 10 mg PO TID@0800,1300,1800 02/09/25
levothyroxine 137 mcg tablet 137 mcg PO DAILY @ 0600 #30 tabs 02/17/25
loperamide 2 mg capsule 2 mg PO Q6HPRN PRN diarrhea #10 02/17/25
caps
loratadine 10 mg tablet 10 mg PO HS PRN allergy 02/17/25
symptoms/post-nasal drip #30 tabs
metoprolol succinate 25 mg 12.5 mg (1/2 x 25 mg) PO BID #30 02/17/25
tablet,extended release 24 hr tabs
prednisone 10 mg tablet See Rx Instructions .Route 02/17/25
.COMPLEX #50 tabs
Review of Systems
-
All other systems: A 12 pt ROS was Negative except as stated above in HPI
Vital Signs
Temp Pulse Resp BP Pulse Ox
97.8 F 75 19 133/71 95
02/18/25 06:34 02/18/25 10:30 02/18/25 10:30 02/18/25 10:02 02/18/25 10:30
Physical Exam
Exam
General: Well Developed, Well Nourished and Other (chronically-ill appearing)
GI: Soft, Non Tender, Non Distended and Normal Bowel Sounds
Rectal: Other (Prolapsed internal hemorrhoids. Dried blood around canal with bright red blood on CHARITY, unable to perform full internal exam as patient unable to tolerate rectal, could not visualize any obvious anal fissures)
Musculoskeletal: Edema
Results
WBC 8.0 10^3/uL (4.8-10.8) 02/18/25 06:38
Hgb 8.8 g/dL (12.0-16.0) L 02/18/25 06:38
Hct 28.3 % (37.0-47.0) L 02/18/25 06:38
MCV 111.0 fL (81.0-99.0) H 02/18/25 06:38
Plt Count 226 10^3/uL (130-400) 02/18/25 06:38
Absolute Neuts (auto) 6.6 10^3/uL (1.4-6.5) H 02/18/25 06:38
PT 17.9 Sec (11.4-14.6) H 02/18/25 06:38
INR 1.47 02/18/25 06:38
APTT 30.0 Sec (23.4-35.0) 02/18/25 06:38
Sodium 138 mmol/L (135-145) 02/18/25 06:38
Potassium 3.6 mmol/L (3.5-5.1) 02/18/25 06:38
Chloride 105 mmol/L (98-107) 02/18/25 06:38
Carbon Dioxide 32 mmol/L (22-30) H 02/18/25 06:38
BUN 31 mg/dl (7-17) H 02/18/25 06:38
Creatinine 0.9 mg/dL (0.6-1.0) 02/18/25 06:38
Calcium 7.8 mg/dl (8.4-10.2) L 02/18/25 06:38
Total Bilirubin 0.7 mg/dl (0.2-1.3) 02/18/25 06:38
AST 27 U/L (14-36) 02/18/25 06:38
ALT 28 U/L (0-35) 02/18/25 06:38
Alkaline Phosphatase 52 U/L (38-126) 02/18/25 06:38
Diagnostic Image Results:
Prior GI Procedures:
EGD:
Colonoscopy:
Assessment / Plan
-
79-year-old female with past medical history of A-fib on Eliquis, V. tach s/p PPM/ICD, MGUS, hypertension, hyperlipidemia, hypothyroidism, RA, history of cholecystectomy, hysterectomy, history of colon polyps (prior flat polyp removed by
Meche in 2016), obesity, admitted from rehab with recurrent rectal bleeding.
A/P:
Recommend flex sig to evaluate cause of recurrent bleeding, recent colonoscopy in September 2024. Suspect hemorrhoidal vs. proctitis vs. stercoral ulcer vs. AVM vs. Diverticular vs. ischemic vs. less likely malignancy
Hemoglobin at baseline, continue to monitor. Recommend transfuse for Hgb <8
PPI IV BID
Last dose eliquis 12 PM, starting on heparin gtt given recent cardioversion on 02/12
Plan for flex sig on Wednesday, 02/20, to allow for eliquis washout, okay to continue heparin gtt
Will plan to hold heparin gtt 6 hours prior to flex sig on 02/20
If large volume hematochezia or hemodynamically unstable bleeding, please obtain STAT CTA
Okay for clears
Data Reviewed
-
Old Records: Reviewed
-
-
Thank you for consultation and allowing me to participate in the patient's care. Please call the clinical education assistant GI physician during the after hours with any questions or concerns.
[2025-02-18 11:23] LABS: Ferritin 43.1 ng/ml (11.1-264.0)
[2025-02-18 11:54] LABS: Folate 19.9 ng/ml (2.76-20); Vitamin B12 581 pg/ml (239-931)
[2025-02-18] MEDS: DELTASONE 40 MG PO (12:15)
[2025-02-18] MEDS: PACERONE 200 MG PO (12:16)
[2025-02-18] MEDS: HEPARIN 25000 UNITS/250 ML IV (12:17)
[2025-02-18] MEDS: PROTONIX IV 40 MG IV ×2 (12:24→20:24)
[2025-02-18] MEDS: NSS (PRESERVATIVE FREE) 10 ML IV ×2 (12:27→20:24)
[2025-02-18 12:28] LABS: Hematocrit 27.9 % (37.0-47.0); Hemoglobin 8.8 g/dL (12.0-16.0)
[2025-02-18 12:51] LABS: Glucose - Point of Care 104 mg/dl (70-99)
[2025-02-18] MEDS: NOVOLOG FLEXPEN-LOW RESISTANCE SC (13:22)
[2025-02-18] MEDS: NOVOLOG FLEXPEN-LOW RESISTANCE 2 UNITS SC (17:37)
[2025-02-18 17:42] LABS: Glucose - Point of Care 202 mg/dl (70-99)
--- NOTE | 2025-02-18 18:20 | PTCARENOTE ---
Assumed care of pt from ED, oriented to room and unit. Pt started on a heparin drip. Pt is on tele running a-paced. Pt call jeronimo is within reach, pt instructed to ring appropriately, verbalizes understanding, will cont to monitor.
[2025-02-18 19:03] LABS: Hematocrit 27.7 % (37.0-47.0); Hemoglobin 9.0 g/dL (12.0-16.0)
[2025-02-18 19:15] LABS: APTT 44.5 Sec (23.4-35.0)
[2025-02-18] MEDS: TOPROL XL 12.5 MG PO (20:23)
[2025-02-18 22:26] LABS: Glucose - Point of Care 185 mg/dl (70-99)
[2025-02-19] MEDS: TYLENOL 650 MG PO ×2 (01:59→08:47)
[2025-02-19 03:09] VITALS: BP 118/69
[2025-02-19 03:38] LABS: APTT 136.9 Sec (23.4-35.0)
[2025-02-19 03:39] LABS: Magnesium 2.2 mg/dl (1.6-2.3)
[2025-02-19 05:19] LABS: Blood Urea Nitrogen 35 mg/dl (7-17); Calcium 8.1 mg/dl (8.4-10.2); Carbon Dioxide 26 mmol/L (22-30); Chloride 106 mmol/L (98-107); Estimated Creatinine Clearance 53 ml/min; Glucose 138 mg/dl (70-99); Potassium 3.8 mmol/L (3.5-5.1); Sodium 136 mmol/L (135-145); eGFR 56.95
[2025-02-19] MEDS: SYNTHROID 137 MCG PO (05:28)
[2025-02-19 07:50] VITALS: BP 128/73
[2025-02-19 07:59] LABS: Glucose - Point of Care 115 mg/dl (70-99)
[2025-02-19] MEDS: NOVOLOG FLEXPEN-LOW RESISTANCE SC (08:37)
[2025-02-19] MEDS: TOPROL XL 12.5 MG PO ×2 (08:41→20:41)
[2025-02-19] MEDS: PACERONE 200 MG PO (08:46)
[2025-02-19] MEDS: MAGNESIUM OXIDE 400 MG PO (08:47)
[2025-02-19] MEDS: DELTASONE 40 MG PO (08:47)
[2025-02-19] MEDS: THERAGRAN 1 TABLET PO (08:47)
[2025-02-19] MEDS: VITAMIN B1 100 MG PO (08:47)
[2025-02-19] MEDS: NSS (PRESERVATIVE FREE) 10 ML IV ×2 (08:48→20:41)
[2025-02-19] MEDS: PROTONIX IV 40 MG IV ×2 (08:48→20:41)
--- NOTE | 2025-02-19 09:43 | W.PN.GI.CBS2 ---
Addendum entered and electronically signed by Megan Martínez DO 02/19/25 11:14:
The patient was seen and examined by me independently in collaboration with the nurse practitioner.
Past medical history/social history/medications/allergies/family history reviewed.
Lab data and imaging data reviewed.
Hemoglobin stable today at 9. Small amount of rectal bleeding overnight. She is currently on a heparin gtt. She continues to complain of recurrent sensation of urinary urgency causing rectal discomfort, followed by a 'popping' sensation.
-agree with bladder scan
-abdominal xray
-NPO PMN for flex sig tomorrow, heparin gtt to be held @ 4 am prior to procedure
Original Note:
Today's Communication / Plan
-
Etiology of bleeding related to hemorrhoids, proctitis as noted on prior imaging vs other hx colon 09/2024 as noted with HP polyps, diverticulosis, hemorrhoids
pt with some lower abdominal pain with pain into hemorrhoids , and popping sensation -- noted with distention on exam
only small amount of bleeding this am
check follow up obstruction series
will also bladder scan to ensure on bladder issue with foul odor noted
hbg stable at 9
cont preparation H
PPI IV BID
Last dose eliquis 12 PM, starting on heparin gtt given recent cardioversion on 02/12
Plan for flex sig on Wednesday, 02/20, to allow for eliquis washout
Will plan to hold heparin gtt 6 hours prior to flex sig on 02/20 at 4 AM
If large volume hematochezia or hemodynamically unstable bleeding, please obtain STAT CTA
Okay for clears today then NPO in AM
if persistent anemia consider EGD then capsule
Assessment / Plan
-
79-year-old female with past medical history of A-fib on Eliquis, V. tach s/p PPM/ICD, MGUS, hypertension, hyperlipidemia, hypothyroidism, RA, history of cholecystectomy, hysterectomy, history of colon polyps (prior flat polyp removed by
Meche in 2017), obesity, admitted from rehab with recurrent rectal bleeding.
Colonoscopy: 09/2024- burks 2 mm polyp appendiceal orifice, lipoma AC, diverticulosis, external hemorrhoids. bx HP polyp
-rectal bleeding with bright red blood
-abd distention
-hx hemorrhoids
-anemia with slow drop in hbg over time - macrocytic
-persistent hypoalbuminemia
-prior imaging with moderate to severe gaseous distention of colon(02/01/25 abd X ray) and rectal wall thickening with proctitis (01/11/25 CT)
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
other med problems:
-afib on Eliquis with CV 02/12 , V- tach, prior pacer, ICD, HTN, hypercholesterolemia, hypothyroidism, hx elevated glucose, RA, prior sy, hysterectomy, TKR, prior colon polyps including flat polyp resection with Dr. Mcgregor in 2017, obesity, DDD
, CKD
A/P:
Etiology of bleeding related to hemorrhoids, proctitis as noted on prior imaging vs other hx colon 09/2024 as noted with HP polyps, diverticulosis, hemorrhoids
pt with some lower abdominal pain with pain into hemorrhoids , and popping sensation -- noted with distention on exam
only small amount of bleeding this am
check follow up obstruction series
will also bladder scan to ensure on bladder issue with foul odor noted
hbg stable at 9
cont preparation H
PPI IV BID
Last dose eliquis / PM, starting on heparin gtt given recent cardioversion on 02/12
Plan for flex sig on Wednesday, 02/20, to allow for eliquis washout
Will plan to hold heparin gtt 6 hours prior to flex sig on 02/20 at 4 AM
If large volume hematochezia or hemodynamically unstable bleeding, please obtain STAT CTA
Okay for clears today then NPO in AM
if persistent anemia consider EGD then capsule
Subjective
Subjective
Date of Service: February 19, 2025
on clear diet, small amount of bleeding this am, pt admits to pressure in hemorrhoids and feeling of popping with relief of pressure at times but not with passing flatus, currently urinating without difficulty
Objective
Data Reviewed
Laboratory Data:
Laboratory Results
02/18/25 18:56
02/19/25 03:29
Laboratory Results
PT 17.9 Sec (11.4-14.6) H 02/18/25 06:38
INR 1.47 02/18/25 06:38
APTT 136.9 Sec (23.4-35.0) H 02/19/25 03:14
Phosphorus 3.4 mg/dl (2.5-4.5) 02/19/25 03:14
Magnesium 2.2 mg/dl (1.6-2.3) 02/19/25 03:14
Total Bilirubin 0.7 mg/dl (0.2-1.3) 02/18/25 06:38
AST 27 U/L (14-36) 02/18/25 06:38
ALT 28 U/L (0-35) 02/18/25 06:38
Alkaline Phosphatase 52 U/L (38-126) 02/18/25 06:38
Vital Signs and I&O:
Vital Signs
Temp Pulse Resp BP Pulse Ox
97.7 F 77 16 128/73 93
02/19/25 07:50 02/19/25 08:46 02/19/25 07:50 02/19/25 08:46 02/19/25 07:50
I&O
02/18/25 02/19/25 02/20/25
06:59 06:59 06:59
Intake Total 1182 / 1182
Balance 1182 / 1182
Physical Exam
Physical Exam
HEENT: Anicteric, Moist mucous membranes and Other (pale appearing )
Cardiology: Normal Sinus Rhythm
Pulmonary: Clear
GI: Soft and Distended (some tympany )
Neuro: Non Focal
[2025-02-19] MEDS: PREPARATION H MAX STRENGTH PAIN RELIEF CREAM 1 APPLIC RECTAL (10:35)
[2025-02-19 11:39] VITALS: BP 115/68
[2025-02-19 11:59] LABS: APTT 63.2 Sec (23.4-35.0)
[2025-02-19 13:07] LABS: Glucose - Point of Care 154 mg/dl (70-99)
[2025-02-19] MEDS: NOVOLOG FLEXPEN-LOW RESISTANCE 1 UNITS SC ×2 (13:14→17:56)
--- NOTE | 2025-02-19 14:57 | W.PN.HOSP.TC ---
Today's Communication/Plan
-
Hold hep ggt
Severe distension in the abd - f/u GI recs
Flex Sig tomorrow
repeat HGb with repeat bloody stool
Assessment / Plan
Assessment / Plan
Physical Exam
General: No pallor, cyanosis, or jaundice. Obese
HEENT: Throat clear. PERRLA Normocephalic atraumatic
NECK: Supple. No JVD Carotid Bruits
RESPIRATORY: Lungs clear to auscultation. No crackles wheezes stridor
CVS: S1, S2 normal. RRR. No murmur, rub or gallop.
ABDOMEN: Soft, non-tender. distension noted. BS+/normal.
EXTREMITIES: No peripheral cyanosis or edema.
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
#Lower GI bleed
#Hemorrhoids
#Chronic Macrocytic Anemia
VSS, H&H stable
Tele admit
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
given recent Cardioversion 02/12 will hold Eliquis; Recent Blood stool again, have to hold Hep ggt - behzad with severe colon distension
monitor H&H, transfuse prn Hgb<8
Preparation H prn hemorrhoid discomfort
GI eval
NPO
Abd XR - with severe distension - f/u GI recs
Repeat hgb
#pAtrial Fibrillation s/p cardioversion 02/12
#VT s/p ppm/ICD
#HOCM
cont Amiodarone and Metoprolol XL 12.5 mg BID w/ holding parameters
Eliquis on hold, stop hep gtt due to recurrent bleeding again
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
#Neuropathy, lower ext numbness R>L
-Continue prednisone taper, 40 mg daily (dose reduction by 10 mg starting every until complete, patient advised to follow up with Neurology before completion)
-discussed w/ patient and daughter Vilma, partial recovery from transverse myelitis is usually in the magnitude of months and full recovery is not guaranteed
Steroid Induced Hyperglycemia and Leukocytosis
-HgbA1c 4.8 in Feb 2025
-low dose sliding scale for now
Hypothyroidism
-Synthroid recently reduced from 150 mcg to 137 mcg daily due to concerns iatrogenic Hyperthyroidism
-follow up Repeat TFTs in early March recommended
Orthostatic Hypotension
-cont home midodrine 10 mg TID w/ holding parameters SBP>160
CKDIII
monitor
Chronic Diarrhea
Cdiff antigen pos in past but toxin neg received 10 day PO Vanc in January for suspect Cdiff
02/16 Cdiff neg
imodium prn
Allergic Rhinitis/Post-nasal drip/Cough
cough resolved at this time
Claritin HSPRN
#Patient suspected Parkinson's in the past
currently appears very asymptomatic, no significant rigidity or resting tremors
continued follow up with neurology advised
Small R kidney lesions, probably cyst
L adrenal lesion: old hemorrhage or cyst
-follow up CT in 6 mo recommended
History Positive Rheumatoid antibodies
-follow up with rheumatology recommended
MGUS
-Hematology evaluated 01/15 and assessed low risk MGUS, Repeat HEYDI& SPEP and Serum Light Chains in 3 months and follow up with PCP recommended
PT/OT
dvt ppx scds
Full Code
Total time spent on today's encounter was 51 minutes which included time spent in counseling the patient/family regarding diagnosis and treatment plan as listed above, goals of care, and symptom management. Case was discussed with nursing staff,
specialists, and care coordinators/case management. All labs and imaging personally reviewed by me. Remainder the time spent in detailed review of previous records, lab data, imaging, and other medical provider documentation.
Anticipated Discharge: > 48 hours
Subjective/Interval History
-
Date of Service: February 19, 2025
Bloody stools afternoon
Objective Data
-
Labs:
Laboratory Results
02/19/25 02/19/25 02/19/25
03:14 03:29 11:33
APTT 136.9 H 63.2 H
Sodium 136 Cancelled
Potassium 3.8 Cancelled
Chloride 106 Cancelled
Carbon Dioxide 26 Cancelled
BUN 35 H Cancelled
Creatinine 1.0 Cancelled
Glucose 138 H Cancelled
Calcium 8.1 L Cancelled
Vital Signs:
Vital Signs
Temp Pulse Resp BP Pulse Ox
97.8 F 79 18 115/68 95
02/19/25 11:39 02/19/25 13:14 02/19/25 11:39 02/19/25 13:14 02/19/25 11:39
I&O
02/18/25 02/19/25 02/20/25
06:59 06:59 06:59
Intake Total 1182 / 1182
Balance 1182 / 1182
Review of Systems
-
History Source: Patient
All other systems: Not reviewed unless documented
Data Reviewed
-
Diagnostic Radiology: Report Reviewed by me
Labs: Labs Reviewed by me
[2025-02-19 15:46] VITALS: BP 105/62
[2025-02-19] MEDS: DULCOLAX 10 MG RECTAL (16:21)
--- NOTE | 2025-02-19 16:44 | CM ---
Chart reviewed. Patient is for colonoscopy on 02/20/25. Plan is for patient to return to [facility] when stable. awaiting Pt/Ot evals.
[2025-02-19 17:45] LABS: Hemoglobin 8.0 g/dL (12.0-16.0)
[2025-02-19 17:56] LABS: Glucose - Point of Care 194 mg/dl (70-99)
[2025-02-19 19:00] VITALS: BP 119/67
[2025-02-19] MEDS: DESENEX/MITRAZOL/ZEASORB 1 APPLIC TOPICAL (20:41)
[2025-02-19 20:56] LABS: Glucose - Point of Care 184 mg/dl (70-99)
[2025-02-19] MEDS: TIGAN 200 MG IM (22:32)
[2025-02-19 23:33] VITALS: BP 147/81
[2025-02-20] VITALS (9 sets, daily range): BP systolic 18–160; BP diastolic 58–71
[2025-02-20] MEDS: SYNTHROID 137 MCG PO (05:25)
[2025-02-20 07:55] LABS: Glucose - Point of Care 122 mg/dl (70-99)
[2025-02-20 08:22] LABS: Hematocrit 24.0 % (37.0-47.0); Hemoglobin 7.6 g/dL (12.0-16.0); Mean Corp Hgb Conc. 31.7 g/dL (33.0-37.0); Mean Corpuscular Volume 111.1 fL (81.0-99.0); Platelet Count 227 10^3/uL (130-400); Red Cell Dist. Width 14.3 % (11.5-14.5)
[2025-02-20] MEDS: NOVOLOG FLEXPEN-LOW RESISTANCE SC ×3 (08:36→15:49)
[2025-02-20 08:43] LABS: Blood Urea Nitrogen 60 mg/dl (7-17); Calcium 8.0 mg/dl (8.4-10.2); Carbon Dioxide 30 mmol/L (22-30); Chloride 103 mmol/L (98-107); Estimated Creatinine Clearance 48 ml/min; Glucose 109 mg/dl (70-99); Potassium 3.8 mmol/L (3.5-5.1); Sodium 137 mmol/L (135-145); eGFR 50.80
--- NOTE | 2025-02-20 09:20 | W.PN.UPDATE ---
Update Note
Progress Note Update
Flex sig done
Dark blood coating rectosigmoid
Poor prep
No active bleed seen
REC:
Hold anticoagulation
Probable diverticular bleed, possibly resolved
Monitor Hgb and BMs. If stable, resume anticoagulation
Clears today
[2025-02-20] MEDS: PROTONIX 100 IV ×2 (10:37→20:48)
[2025-02-20] MEDS: PROTONIX IV IV (10:38)
[2025-02-20] MEDS: NSS (PRESERVATIVE FREE) IV (10:38)
[2025-02-20] MEDS: VITAMIN B1 100 MG PO (10:41)
[2025-02-20] MEDS: MAGNESIUM OXIDE 400 MG PO (10:41)
[2025-02-20] MEDS: PACERONE 200 MG PO (10:41)
[2025-02-20] MEDS: TOPROL XL 12.5 MG PO ×2 (10:41→20:50)
[2025-02-20] MEDS: THERAGRAN 1 TABLET PO (10:42)
[2025-02-20] MEDS: DELTASONE PO (10:44)
[2025-02-20] MEDS: DESENEX/MITRAZOL/ZEASORB 1 APPLIC TOPICAL ×2 (10:44→20:49)
[2025-02-20 13:37] LABS: Glucose - Point of Care 124 mg/dl (70-99)
--- NOTE | 2025-02-20 13:44 | W.PN.HOSP.TC ---
Addendum entered and electronically signed by Aaron Camacho MD 02/20/25 13:50:
holding steroids for today
Original Note:
Today's Communication/Plan
-
CLD
Monitor Hgb
EGD tomorrow
Assessment / Plan
Assessment / Plan
Physical Exam
General: No pallor, cyanosis, or jaundice. Obese
HEENT: Throat clear. PERRLA Normocephalic atraumatic
NECK: Supple. No JVD Carotid Bruits
RESPIRATORY: Lungs clear to auscultation. No crackles wheezes stridor
CVS: S1, S2 normal. RRR. No murmur, rub or gallop.
ABDOMEN: Soft, non-tender. distension noted. BS+/normal.
EXTREMITIES: No peripheral cyanosis or edema.
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
#Lower GI bleed
#Hemorrhoids
#Chronic Macrocytic Anemia
VSS, H&H stable
Tele admit
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
given recent Cardioversion 02/12 will hold Eliquis; Recent Blood stool again, holding Hep ggt
monitor H&H, transfuse prn Hgb<8
Preparation H prn hemorrhoid discomfort
Flex Sig 02/20 - Dark blood coating rectosigmoid - no active bleed
With increased BUN and HgB trending down - plan for EGD tomorrow; NPO at MN
CLD for today
Repeat hgb tomorrow
#pAtrial Fibrillation s/p cardioversion 02/12
#VT s/p ppm/ICD
#HOCM
cont Amiodarone and Metoprolol XL 12.5 mg BID w/ holding parameters
Eliquis on hold, stop hep gtt due to recurrent bleeding again
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
#Neuropathy, lower ext numbness R>L
-Continue prednisone taper, 40 mg daily (dose reduction by 10 mg starting every until complete, patient advised to follow up with Neurology before completion)
-discussed w/ patient and daughter Vilma, partial recovery from transverse myelitis is usually in the magnitude of months and full recovery is not guaranteed
Steroid Induced Hyperglycemia and Leukocytosis
-HgbA1c 4.8 in Feb 2025
-low dose sliding scale for now
Hypothyroidism
-Synthroid recently reduced from 150 mcg to 137 mcg daily due to concerns iatrogenic Hyperthyroidism
-follow up Repeat TFTs in early March recommended
Orthostatic Hypotension
-cont home midodrine 10 mg TID w/ holding parameters SBP>160
CKDIII
monitor
Chronic Diarrhea
Cdiff antigen pos in past but toxin neg received 10 day PO Vanc in January for suspect Cdiff
02/16 Cdiff neg
imodium prn
Allergic Rhinitis/Post-nasal drip/Cough
cough resolved at this time
Claritin HSPRN
#Patient suspected Parkinson's in the past
currently appears very asymptomatic, no significant rigidity or resting tremors
continued follow up with neurology advised
Small R kidney lesions, probably cyst
L adrenal lesion: old hemorrhage or cyst
-follow up CT in 6 mo recommended
History Positive Rheumatoid antibodies
-follow up with rheumatology recommended
MGUS
-Hematology evaluated 01/15 and assessed low risk MGUS, Repeat HEYDI& SPEP and Serum Light Chains in 3 months and follow up with PCP recommended
PT/OT
dvt ppx scds
Full Code
Total time spent on today's encounter was 53 minutes which included time spent in counseling the patient/family regarding diagnosis and treatment plan as listed above, goals of care, and symptom management. Case was discussed with nursing staff,
specialists, and care coordinators/case management. All labs and imaging personally reviewed by me. Remainder the time spent in detailed review of previous records, lab data, imaging, and other medical provider documentation.
Anticipated Discharge: 24 - 48 hours
Subjective/Interval History
-
Date of Service: February 20, 2025
no acute events overnight; Flex Sig negative with continued drop in hgb and increase BUN
Objective Data
-
Labs:
Laboratory Results
02/20/25
07:35
WBC 7.1
Hgb 7.6 L
Hct 24.0 L
Plt Count 227
Sodium 137
Potassium 3.8
Chloride 103
Carbon Dioxide 30
BUN 60 H
Creatinine 1.1 H
Glucose 109 H
Calcium 8.0 L
Vital Signs:
Vital Signs
Temp Pulse Resp BP Pulse Ox
97.3 F 75 16 108/68 98
02/20/25 11:47 02/20/25 11:47 02/20/25 11:47 02/20/25 11:47 02/20/25 11:47
I&O
02/19/25 02/20/25 02/21/25
06:59 06:59 06:59
Intake Total 1182 / 1182 1200 / 1200
Balance 1182 / 1182 1200 / 1200
Review of Systems
-
History Source: Patient
All other systems: Not reviewed unless documented
Physical Exam
-
General: No Apparent Distress
HEENT: Moist Mucous Membranes, Anicteric and PERRLA
Respiratory: Clear to Auscultation; Negative Wheezes, Rales or Rhonchi
Cardiac: Irregular Rhythm; Negative Murmur, Rub or Gallop
GI: Soft, Nontender, Nondistended and Normal Bowel Sounds
Musculoskeletal: No Edema
Skin: Warm and Dry; Negative Rash, Ulcers or Lesions
Neuro: Awake and AO x 3
Hematologic / Lymphatic: No Lymphadenopathy
Psych: Calm
Data Reviewed
-
Diagnostic Radiology: Report Reviewed by me
Labs: Labs Reviewed by me
--- NOTE | 2025-02-20 15:19 | CM ---
CM met with patient at bedside. Patient had sigmoidoscopy today, and is having EGD tomorrow, 02/21. She still wishes to retunr to [facility] when stable. PT/OT evals still pending.
[facility]
[2025-02-20 15:34] LABS: Glucose - Point of Care 108 mg/dl (70-99)
[2025-02-20 18:10] LABS: Urine Character Cloudy (Clear)
[2025-02-20 18:16] LABS: Urine Red Blood Cell 0-2 /HPF (0-2); Urine Squamous Cell >30 /LPF (Few); Urine White Cell 30-40 /HPF (0-5)
--- NOTE | 2025-02-20 20:25 | W.PN.UPDATE ---
Update Note
Progress Note Update
Abnormal ua result received with (4+ blood occult reflex, Positive urine nitrate, 2+Leukocyte, urine WBC 30-40, and many urine bacteria). Will start ceftriaxone.
[2025-02-20] MEDS: STERILE WATER FOR INJECTION 10 ML IV (20:49)
[2025-02-20] MEDS: ROCEPHIN 1000 MG IV (20:49)
[2025-02-20 22:30] LABS: Glucose - Point of Care 81 mg/dl (70-99)
[2025-02-21] VITALS (11 sets, daily range): BP systolic 122–172; BP diastolic 56–83; BMI 37.5
[2025-02-21 00:11] LABS: Glucose - Point of Care 104 mg/dl (70-99)
[2025-02-21] MEDS: OFIRMEV 100 IV (02:58)
[2025-02-21 03:36] LABS: Glucose - Point of Care 107 mg/dl (70-99)
[2025-02-21 06:05] LABS: Glucose - Point of Care 110 mg/dl (70-99)
[2025-02-21] MEDS: PROTONIX 100 IV (06:39)
[2025-02-21] MEDS: SYNTHROID 137 MCG PO (06:46)
[2025-02-21 07:38] LABS: Hematocrit 22.2 % (37.0-47.0); Hemoglobin 6.9 g/dL (12.0-16.0); Mean Corp Hgb Conc. 31.1 g/dL (33.0-37.0); Mean Corpuscular Volume 108.3 fL (81.0-99.0); Platelet Count 225 10^3/uL (130-400); Red Cell Dist. Width 14.6 % (11.5-14.5)
[2025-02-21 07:46] LABS: Glucose - Point of Care 110 mg/dl (70-99)
[2025-02-21 07:52] LABS: Blood Urea Nitrogen 60 mg/dl (7-17); Calcium 7.8 mg/dl (8.4-10.2); Carbon Dioxide 28 mmol/L (22-30); Chloride 106 mmol/L (98-107); Estimated Creatinine Clearance 44 ml/min; Glucose 95 mg/dl (70-99); Potassium 3.7 mmol/L (3.5-5.1); Sodium 137 mmol/L (135-145); eGFR 45.76
[2025-02-21] MEDS: NOVOLOG FLEXPEN-LOW RESISTANCE SC ×3 (07:54→17:23)
[2025-02-21] MEDS: VITAMIN B1 100 MG PO (08:59)
[2025-02-21] MEDS: TOPROL XL 12.5 MG PO ×2 (08:59→21:01)
[2025-02-21] MEDS: THERAGRAN 1 TABLET PO (08:59)
[2025-02-21] MEDS: MAGNESIUM OXIDE 400 MG PO (08:59)
[2025-02-21] MEDS: DESENEX/MITRAZOL/ZEASORB 1 APPLIC TOPICAL ×2 (09:00→21:03)
[2025-02-21] MEDS: PACERONE 200 MG PO (09:00)
[2025-02-21 12:57] LABS: Glucose - Point of Care 101 mg/dl (70-99)
--- NOTE | 2025-02-21 14:00 | PTCARENOTE ---
RN attempted to place rectal tube per GI request but as soon as rectal tube inserted pt complaining of excruciating pain. tube removed and MD notified
--- NOTE | 2025-02-21 14:28 | W.PN.HOSP.TC ---
Today's Communication/Plan
-
EGD today
Holding steroids, anticoag
transfuse 1 u prbc
monitor hgb
Assessment / Plan
Assessment / Plan
Physical Exam
General: No pallor, cyanosis, or jaundice. Obese
HEENT: Throat clear. PERRLA Normocephalic atraumatic
NECK: Supple. No JVD Carotid Bruits
RESPIRATORY: Lungs clear to auscultation. No crackles wheezes stridor
CVS: S1, S2 normal. RRR. No murmur, rub or gallop.
ABDOMEN: Soft, non-tender. distension noted. BS+/normal.
EXTREMITIES: No peripheral cyanosis or edema.
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
#Lower GI bleed
#Hemorrhoids
#Chronic Macrocytic Anemia
#Acute Blood Loss Anemia
VSS, H&H stable
Tele admit
IV Protonix 40 mg BID ([employer] Protonix 40 mg PO daily GI ppx for steroids)
given recent Cardioversion 02/12 will hold Eliquis; Recent Blood stool again, holding Hep ggt
monitor H&H, transfuse prn Hgb<7
Preparation H prn hemorrhoid discomfort
Flex Sig 02/20 - Dark blood coating rectosigmoid - no active bleed
With increased BUN and HgB trending down - plan for EGD today
Transfuse 1u prbc 02/21
Repeat hgb tomorrow
Could not tolerate rectal tube for rectal pressure noted after flex sig
#UTI
-abx
-f/u cultures
#pAtrial Fibrillation s/p cardioversion 02/12
#VT s/p ppm/ICD
#HOCM
cont Amiodarone and Metoprolol XL 12.5 mg BID w/ holding parameters
Eliquis on hold, stop hep gtt due to recurrent bleeding again
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
#Neuropathy, lower ext numbness R>L
-Continue prednisone taper, 40 mg daily (dose reduction by 10 mg starting every until complete, patient advised to follow up with Neurology before completion) holding steroids with possible upper GI Bleed
-discussed w/ patient and daughter Vilma, partial recovery from transverse myelitis is usually in the magnitude of months and full recovery is not guaranteed
Steroid Induced Hyperglycemia and Leukocytosis
-HgbA1c 4.8 in Feb 2025
-low dose sliding scale for now
Hypothyroidism
-Synthroid recently reduced from 150 mcg to 137 mcg daily due to concerns iatrogenic Hyperthyroidism
-follow up Repeat TFTs in early March recommended
Orthostatic Hypotension
-cont home midodrine 10 mg TID w/ holding parameters SBP>160
CKDIII
monitor
Chronic Diarrhea
Cdiff antigen pos in past but toxin neg received 10 day PO Vanc in January for suspect Cdiff
02/16 Cdiff neg
imodium prn
Allergic Rhinitis/Post-nasal drip/Cough
cough resolved at this time
Claritin HSPRN
#Patient suspected Parkinson's in the past
currently appears very asymptomatic, no significant rigidity or resting tremors
continued follow up with neurology advised
Small R kidney lesions, probably cyst
L adrenal lesion: old hemorrhage or cyst
-follow up CT in 6 mo recommended
History Positive Rheumatoid antibodies
-follow up with rheumatology recommended
MGUS
-Hematology evaluated 01/15 and assessed low risk MGUS, Repeat HEYDI& SPEP and Serum Light Chains in 3 months and follow up with PCP recommended
PT/OT
dvt ppx scds
Full Code
Total time spent on today's encounter was 52 minutes which included time spent in counseling the patient/family regarding diagnosis and treatment plan as listed above, goals of care, and symptom management. Case was discussed with nursing staff,
specialists, and care coordinators/case management. All labs and imaging personally reviewed by me. Remainder the time spent in detailed review of previous records, lab data, imaging, and other medical provider documentation.
Anticipated Discharge: 24 - 48 hours
Subjective/Interval History
-
Date of Service: February 21, 2025
no acute events overnight; hgb trended lower; has rectal pressure/discomfort - could not be alleviated by rectal tube
Objective Data
-
Labs:
Laboratory Results
02/21/25
07:03
WBC 5.7
Hgb 6.9 L*
Hct 22.2 L
Plt Count 225
Sodium 137
Potassium 3.7
Chloride 106
Carbon Dioxide 28
BUN 60 H
Creatinine 1.2 H
Glucose 95
Calcium 7.8 L
Vital Signs:
Vital Signs
Temp Pulse Resp BP Pulse Ox
97.5 F 77 16 122/62 96
02/21/25 13:50 02/21/25 13:50 02/21/25 13:50 02/21/25 13:50 02/21/25 11:35
I&O
02/20/25 02/21/25 02/22/25
06:59 06:59 06:59
Intake Total 1200 / 1200 500 / 500 0 / 0
Balance 1200 / 1200 500 / 500 0 / 0
Review of Systems
-
History Source: Patient
All other systems: Not reviewed unless documented
Data Reviewed
-
Diagnostic Radiology: Report Reviewed by me
Labs: Labs Reviewed by me
--- NOTE | 2025-02-21 14:46 | W.PN.UPDATE ---
Update Note
Progress Note Update
EGD done
Few gastric polyps
Duodenal lymphangiectasia
No bleeding
REC:
Clear liquids and advance if no further bleeding
Trend Hgb
D/C protonix gtt
[2025-02-21] MEDS: PREPARATION H MAX STRENGTH PAIN RELIEF CREAM 1 APPLIC RECTAL (16:46)
[2025-02-21 17:15] LABS: Glucose - Point of Care 91 mg/dl (70-99)
[2025-02-21] MEDS: STERILE WATER FOR INJECTION 10 ML IV (21:01)
[2025-02-21] MEDS: ROCEPHIN 1000 MG IV (21:01)
[2025-02-21 22:48] LABS: Hemoglobin 9.1 g/dL (12.0-16.0)
[2025-02-22] VITALS (8 sets, daily range): BP systolic 120–160; BP diastolic 63–88; PULSE 75; O2SAT 99
[2025-02-22 02:06] LABS: Glucose - Point of Care 91 mg/dl (70-99)
[2025-02-22] MEDS: SYNTHROID 137 MCG PO (06:33)
--- NOTE | 2025-02-22 07:59 | W.PN.GI.CBS2 ---
Today's Communication / Plan
-
Passing old blood
EGD negative
Probable diverticular bleed, resolved
Low res diet
Add miralax for rectal distention/gas/constipation
Assessment / Plan
-
Summary: 79-year-old female with past medical history of A-fib on Eliquis, V. tach s/p PPM/ICD, MGUS, hypertension, hyperlipidemia, hypothyroidism, RA, history of cholecystectomy, hysterectomy, history of colon polyps (prior flat polyp removed by
Dr. Mcgregor in 2017), obesity, admitted from rehab with recurrent rectal bleeding.
Of note, 2 recent admissions with shock like picture with GI bleeding, her hemoglobin initially dropped around November from 13 to ~10s, has remained in the 8-9 range since. She was again admitted from 02/09-02/12 again with shock like picture,
initially started on abx with c/f sepsis and pressors in addition to fludrocortisone, c/f adrenal insufficiency. MRI thoracic spine showed 3 focal areas of increased T2 and STIR signal within the spinal cord, LP performed but not enough fluid
collected for analysis. She was started on a steroid taper, main differential diagnoses are transverse myelitis vs. MS vs. clinical isolated syndrome.
Colonoscopy: 09/2024- burks 2 mm polyp appendiceal orifice, lipoma AC, diverticulosis, external hemorrhoids. bx HP polyp
02/21- 1 unit PRBC
02/21 EGD- gastric polyps. Duodenal lymphangiectasias
02/20 FLEX SIG- dark blood coating rectosigmoid. Poor prep. No active bleeding
Impression:
rectal bleeding with bright red blood
-abd distention
-hx hemorrhoids
-anemia with slow drop in hbg over time - macrocytic
-persistent hypoalbuminemia
-prior imaging with moderate to severe gaseous distention of colon(02/01/25 abd X ray) and rectal wall thickening with proctitis (01/11/25 CT)
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
other med problems:
-afib on Eliquis with CV 02/12 , V- tach, prior pacer, ICD, HTN, hypercholesterolemia, hypothyroidism, hx elevated glucose, RA, prior sy, hysterectomy, TKR, prior colon polyps including flat polyp resection with Dr. Mcgregor in 2017, obesity, DDD
, CKD
Subjective
Subjective
Date of Service: February 22, 2025
Passing dark brown/black stool. c/o rectal pain
Objective
Data Reviewed
Laboratory Data:
Laboratory Results
PT 17.9 Sec (11.4-14.6) H 02/18/25 06:38
INR 1.47 02/18/25 06:38
APTT 63.2 Sec (23.4-35.0) H 02/19/25 11:33
Phosphorus 3.4 mg/dl (2.5-4.5) 02/19/25 03:14
Magnesium 2.2 mg/dl (1.6-2.3) 02/19/25 03:14
Total Bilirubin 0.7 mg/dl (0.2-1.3) 02/18/25 06:38
AST 27 U/L (14-36) 02/18/25 06:38
ALT 28 U/L (0-35) 02/18/25 06:38
Alkaline Phosphatase 52 U/L (38-126) 02/18/25 06:38
Vital Signs and I&O:
Vital Signs
Temp Pulse Resp BP Pulse Ox
97.6 F 75 18 160/74 96
02/22/25 03:27 02/22/25 03:27 02/22/25 03:27 02/22/25 03:27 02/22/25 03:27
I&O
02/21/25 02/22/25 02/23/25
06:59 06:59 06:59
Intake Total 500 / 500 450 / 450 480 / 480
Balance 500 / 500 450 / 450 480 / 480
Physical Exam
Physical Exam
GI: Soft, Non Distended and Non Tender
[2025-02-22 08:06] LABS: Glucose - Point of Care 101 mg/dl (70-99)
[2025-02-22] MEDS: NOVOLOG FLEXPEN-LOW RESISTANCE SC ×3 (08:21→17:13)
[2025-02-22] MEDS: DESENEX/MITRAZOL/ZEASORB 1 APPLIC TOPICAL ×2 (08:22→21:19)
[2025-02-22] MEDS: MAGNESIUM OXIDE 400 MG PO (08:23)
[2025-02-22] MEDS: TOPROL XL 12.5 MG PO ×2 (08:24→21:14)
[2025-02-22] MEDS: PACERONE 200 MG PO (08:24)
[2025-02-22] MEDS: THERAGRAN 1 TABLET PO (08:24)
[2025-02-22] MEDS: VITAMIN B1 100 MG PO (08:25)
[2025-02-22 08:33] LABS: Hematocrit 26.1 % (37.0-47.0); Hemoglobin 8.2 g/dL (12.0-16.0); Mean Corp Hgb Conc. 31.4 g/dL (33.0-37.0); Mean Corpuscular Volume 105.7 fL (81.0-99.0); Platelet Count 231 10^3/uL (130-400); Red Cell Dist. Width 18.2 % (11.5-14.5)
[2025-02-22] MEDS: MIRALAX 17 GRAMS PO (08:41)
[2025-02-22 09:27] LABS: Blood Urea Nitrogen 55 mg/dl (7-17); Calcium 7.7 mg/dl (8.4-10.2); Carbon Dioxide 28 mmol/L (22-30); Chloride 107 mmol/L (98-107); Estimated Creatinine Clearance 44 ml/min; Glucose 79 mg/dl (70-99); Potassium 3.3 mmol/L (3.5-5.1); Sodium 138 mmol/L (135-145); eGFR 45.76
[2025-02-22 11:52] LABS: Glucose - Point of Care 120 mg/dl (70-99)
--- NOTE | 2025-02-22 14:33 | W.PN.HOSP.TC ---
Today's Communication/Plan
-
miralax
k repletion
Reinitiate steroids
Anticipate restarting anticoagulation tomorrow
Assessment / Plan
Assessment / Plan
Physical Exam
General: No pallor, cyanosis, or jaundice. Obese
HEENT: Throat clear. PERRLA Normocephalic atraumatic
NECK: Supple. No JVD Carotid Bruits
RESPIRATORY: Lungs clear to auscultation. No crackles wheezes stridor
CVS: S1, S2 normal. RRR. No murmur, rub or gallop.
ABDOMEN: Soft, non-tender. distension noted. BS+/normal.
EXTREMITIES: No peripheral cyanosis or edema.
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
#Lower GI bleed
#Hemorrhoids
#Chronic Macrocytic Anemia
#Acute Blood Loss Anemia
#Diverticular bleed, resolved
VSS, H&H stable
Tele admit
Stop Protonix drip
given recent Cardioversion 02/12 will hold Eliquis; Recent Blood stool again, holding Hep ggt per today
monitor H&H, transfuse prn Hgb<7
Preparation H prn hemorrhoid discomfort
Flex Sig 02/20 - Dark blood coating rectosigmoid - no active bleed
EGD unremarkable, no bleeding. Duodenal lymphangiectasia
Transfuse 1u prbc 02/21
Repeat hgb tomorrow
Could not tolerate rectal tube for rectal pressure noted after flex sig
Advance to low residue diet
Retrial steroids
#Rectal distention/gas/constipation
Add MiraLAX
#Hypokalemia
� Monitor and replete
#Left upper extremity swelling
� Follow-up Dopplers
#pAtrial Fibrillation s/p cardioversion 02/12
#VT s/p ppm/ICD
#HOCM
cont Amiodarone and Metoprolol XL 12.5 mg BID w/ holding parameters
Eliquis on hold, stop hep gtt due to recurrent bleeding again; anticipate starting back eliquis tomorrow
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
#Neuropathy, lower ext numbness R>L
-Continue prednisone taper, 40 mg daily (dose reduction by 10 mg starting every until complete, patient advised to follow up with Neurology before completion). can restart prednisone and monitor
-discussed w/ patient and daughter Vilma, partial recovery from transverse myelitis is usually in the magnitude of months and full recovery is not guaranteed
Steroid Induced Hyperglycemia and Leukocytosis
-HgbA1c 4.8 in Feb 2025
-low dose sliding scale for now
Hypothyroidism
-Synthroid recently reduced from 150 mcg to 137 mcg daily due to concerns iatrogenic Hyperthyroidism
-follow up Repeat TFTs in early March recommended
Orthostatic Hypotension
-cont home midodrine 10 mg TID w/ holding parameters SBP>160
CKDIII
monitor
Chronic Diarrhea
Cdiff antigen pos in past but toxin neg received 10 day PO Vanc in January for suspect Cdiff
02/16 Cdiff neg
imodium prn
Allergic Rhinitis/Post-nasal drip/Cough
cough resolved at this time
Claritin HSPRN
#Patient suspected Parkinson's in the past
currently appears very asymptomatic, no significant rigidity or resting tremors
continued follow up with neurology advised
Small R kidney lesions, probably cyst
L adrenal lesion: old hemorrhage or cyst
-follow up CT in 6 mo recommended
History Positive Rheumatoid antibodies
-follow up with rheumatology recommended
MGUS
-Hematology evaluated 01/15 and assessed low risk MGUS, Repeat HEYDI& SPEP and Serum Light Chains in 3 months and follow up with PCP recommended
PT/OT
dvt ppx scds
Full Code
Total time spent on today's encounter was 52 minutes which included time spent in counseling the patient/family regarding diagnosis and treatment plan as listed above, goals of care, and symptom management. Case was discussed with nursing staff,
specialists, and care coordinators/case management. All labs and imaging personally reviewed by me. Remainder the time spent in detailed review of previous records, lab data, imaging, and other medical provider documentation.
Anticipated Discharge: 24 - 48 hours
Subjective/Interval History
-
Date of Service: February 22, 2025
EGD unremarkable, still with rectal pressure. Probable diverticular bleed. Passing of blood
Objective Data
-
Labs:
Laboratory Results
02/22/25
06:35
WBC 5.2
Hgb 8.2 L
Hct 26.1 L
Plt Count 231
Sodium 138
Potassium 3.3 L
Chloride 107
Carbon Dioxide 28
BUN 55 H
Creatinine 1.2 H
Glucose 79
Calcium 7.7 L
Vital Signs:
Vital Signs
Temp Pulse Resp BP Pulse Ox
97.9 F 77 18 137/71 99
02/22/25 11:35 02/22/25 11:35 02/22/25 11:35 02/22/25 11:35 02/22/25 11:35
I&O
02/21/25 02/22/25 02/23/25
06:59 06:59 06:59
Intake Total 500 / 500 450 / 450 480 / 480
Balance 500 / 500 450 / 450 480 / 480
Review of Systems
-
History Source: Patient
All other systems: Not reviewed unless documented
Physical Exam
-
General: No Apparent Distress
HEENT: Moist Mucous Membranes, Anicteric and PERRLA
Respiratory: Clear to Auscultation; Negative Wheezes, Rales or Rhonchi
Cardiac: Irregular Rhythm; Negative Murmur, Rub or Gallop
GI: Soft, Nontender, Nondistended and Normal Bowel Sounds
Musculoskeletal: No Edema
Skin: Warm and Dry; Negative Rash, Ulcers or Lesions
Neuro: Awake and AO x 3
Hematologic / Lymphatic: No Lymphadenopathy
Psych: Calm
Data Reviewed
-
Diagnostic Radiology: Report Reviewed by me
Labs: Labs Reviewed by me
[2025-02-22] MEDS: KCL ELIXIR 40 MEQ PO (15:04)
--- NOTE | 2025-02-22 15:31 | CM ---
Chart reviewed. PT/OT evals were completed today. referral has been made to [facility].
Plan: return to [facility] when stable
[2025-02-22 16:28] LABS: Glucose - Point of Care 136 mg/dl (70-99)
[2025-02-22 21:17] LABS: Glucose - Point of Care 138 mg/dl (70-99)
[2025-02-22] MEDS: STERILE WATER FOR INJECTION IV (21:30)
[2025-02-23 03:46] VITALS: BP 128/60
[2025-02-23] MEDS: SYNTHROID 137 MCG PO (06:12)
[2025-02-23 06:30] LABS: Hematocrit 28.0 % (37.0-47.0); Hemoglobin 8.9 g/dL (12.0-16.0); Mean Corp Hgb Conc. 31.8 g/dL (33.0-37.0); Mean Corpuscular Volume 106.1 fL (81.0-99.0); Platelet Count 237 10^3/uL (130-400); Red Cell Dist. Width 18.1 % (11.5-14.5)
--- NOTE | 2025-02-23 06:30 | W.PN.GI.CBS2 ---
Today's Communication / Plan
-
No signs to suggest recurrent bleeding and stable H/h. Agree with bowel regimen and preparation H for known hemorrhoids. Still suspicious for resolved diverticular hemorrhage. GI will sign-off, please recontact with any questions or concerns.
Assessment / Plan
-
Summary: 79-year-old female with past medical history of A-fib on Eliquis, V. tach s/p PPM/ICD, MGUS, hypertension, hyperlipidemia, hypothyroidism, RA, history of cholecystectomy, hysterectomy, history of colon polyps (prior flat polyp removed by
Dr. Mcgregor in 2017), obesity, admitted from rehab with recurrent rectal bleeding.
Of note, 2 recent admissions with shock like picture with GI bleeding, her hemoglobin initially dropped around November from 13 to ~10s, has remained in the 8-9 range since. She was again admitted from 02/09-02/12 again with shock like picture,
initially started on abx with c/f sepsis and pressors in addition to fludrocortisone, c/f adrenal insufficiency. MRI thoracic spine showed 3 focal areas of increased T2 and STIR signal within the spinal cord, LP performed but not enough fluid
collected for analysis. She was started on a steroid taper, main differential diagnoses are transverse myelitis vs. MS vs. clinical isolated syndrome.
Colonoscopy: 09/2024- burks 2 mm polyp appendiceal orifice, lipoma AC, diverticulosis, external hemorrhoids. bx HP polyp
02/21- 1 unit PRBC
02/21 EGD- gastric polyps. Duodenal lymphangiectasias
02/20 FLEX SIG- dark blood coating rectosigmoid. Poor prep. No active bleeding
Impression:
#Rectal bleeding with bright red blood 2/2
#Suspected Diverticular Hemorrahge
-abd distention
-hx hemorrhoids
-anemia with slow drop in hbg over time - macrocytic
-persistent hypoalbuminemia
-prior imaging with moderate to severe gaseous distention of colon(02/01/25 abd X ray) and rectal wall thickening with proctitis (01/11/25 CT)
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
other med problems:
-afib on Eliquis with CV 02/12 , V- tach, prior pacer, ICD, HTN, hypercholesterolemia, hypothyroidism, hx elevated glucose, RA, prior sy, hysterectomy, TKR, prior colon polyps including flat polyp resection with Dr. Mcgregor in 2017, obesity, DDD
, CKD
Recommendations:
- Low residue diet as tolerated
- Hgb stable, trend with serial CBC. Transfuse PRN
- No signs to suggest recurrent bleeding, suspicious for resolved diverticular hemorrhage
- Agree with ongoing Miralax for bowel regimen and simethicone PRN for gas
- No plans for any repeat procedures at this time given her unremarkable EGD and recent flex-sig with old blood
- If recurrent hematochezia or signs of brisk GI bleeding, would obtain CTA for localization and IR consult
- Recommend outpatient follow-up with GI with Dr. Burks in 6-8 weeks
- Agree with ongoing preparation H and/or hydrocortisone suppositories PRN
- Avoidance of all NSAIDs
- Rest of care as per primary team
GI will sign-off, please re-recontact with any questions/concerns.
Subjective
Subjective
Date of Service: February 23, 2025
- No acute events overnight, passing old dark stools
- H/h remains stable with Hgb 8.2 -> 8.9
Denies any further signs to suggest recurrent bleeding. No other abdominal pain or discomfort. Still endorsing rectal discomfort, being treated with preparation H. Discussed findings from prior EGD and flex-sig again this AM, likely resolved
diverticular bleed.
Objective
Data Reviewed
Laboratory Data:
Laboratory Results
02/23/25 05:54
Laboratory Results
PT 17.9 Sec (11.4-14.6) H 02/18/25 06:38
INR 1.47 02/18/25 06:38
APTT 63.2 Sec (23.4-35.0) H 02/19/25 11:33
Phosphorus 3.4 mg/dl (2.5-4.5) 02/19/25 03:14
Magnesium 2.2 mg/dl (1.6-2.3) 02/19/25 03:14
Total Bilirubin 0.7 mg/dl (0.2-1.3) 02/18/25 06:38
AST 27 U/L (14-36) 02/18/25 06:38
ALT 28 U/L (0-35) 02/18/25 06:38
Alkaline Phosphatase 52 U/L (38-126) 02/18/25 06:38
Vital Signs and I&O:
Vital Signs
Temp Pulse Resp BP Pulse Ox
98.4 F 78 18 128/60 95
02/23/25 03:46 02/23/25 03:46 02/23/25 03:46 02/23/25 03:46 02/23/25 03:46
I&O
02/21/25 02/22/25 02/23/25
06:59 06:59 06:59
Intake Total 500 / 500 450 / 450 1740 / 1740
Balance 500 / 500 450 / 450 1740 / 1740
Physical Exam
Physical Exam
HEENT: Anicteric and Moist mucous membranes
Pulmonary: Other (Normal WOB on room air)
GI: Soft, Distended (Mildly distended, protuberant abdomen) and Non Tender
Extremities: No Edema
Neuro: Non Focal
[2025-02-23 07:12] LABS: Blood Urea Nitrogen 54 mg/dl (7-17); Calcium 8.1 mg/dl (8.4-10.2); Carbon Dioxide 28 mmol/L (22-30); Chloride 108 mmol/L (98-107); Estimated Creatinine Clearance 48 ml/min; Glucose 98 mg/dl (70-99); Potassium 3.6 mmol/L (3.5-5.1); Sodium 141 mmol/L (135-145); eGFR 50.80
[2025-02-23] MEDS: PREPARATION H MAX STRENGTH PAIN RELIEF CREAM 1 APPLIC RECTAL ×2 (07:13→21:09)
[2025-02-23 07:35] VITALS: BP 124/67
[2025-02-23] MEDS: NOVOLOG FLEXPEN-LOW RESISTANCE SC (09:39)
[2025-02-23] MEDS: PACERONE 200 MG PO (09:40)
[2025-02-23 09:41] LABS: Glucose - Point of Care 100 mg/dl (70-99)
[2025-02-23] MEDS: THERAGRAN 1 TABLET PO (09:41)
[2025-02-23] MEDS: DELTASONE 30 MG PO (09:41)
[2025-02-23] MEDS: MAGNESIUM OXIDE 400 MG PO (09:41)
[2025-02-23] MEDS: TOPROL XL 12.5 MG PO ×2 (09:42→21:09)
[2025-02-23] MEDS: VITAMIN B1 100 MG PO (09:45)
[2025-02-23] MEDS: DESENEX/MITRAZOL/ZEASORB 1 APPLIC TOPICAL ×2 (09:46→21:08)
[2025-02-23 11:00] VITALS: BP 103/69
[2025-02-23 13:10] LABS: Glucose - Point of Care 176 mg/dl (70-99)
[2025-02-23] MEDS: NOVOLOG FLEXPEN-LOW RESISTANCE 1 UNITS SC (13:27)
[2025-02-23] MEDS: ELIQUIS 5 MG PO ×2 (13:28→21:09)
--- NOTE | 2025-02-23 14:51 | W.PN.HOSP.TC ---
Today's Communication/Plan
-
Magnesium citrate
Preparation H
Continue steroids
Trial anticoagulation
Monitor for bleeding, hemoglobin tomorrow
Assessment / Plan
Assessment / Plan
Physical Exam
General: No pallor, cyanosis, or jaundice. Obese
HEENT: Throat clear. PERRLA Normocephalic atraumatic
NECK: Supple. No JVD Carotid Bruits
RESPIRATORY: Lungs clear to auscultation. No crackles wheezes stridor
CVS: S1, S2 normal. RRR. No murmur, rub or gallop.
ABDOMEN: Soft, non-tender. distension noted. BS+/normal.
EXTREMITIES: No peripheral cyanosis or edema.
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
#Lower GI bleed
#Hemorrhoids
#Chronic Macrocytic Anemia
#Acute Blood Loss Anemia
#Diverticular bleed, resolved
VSS, H&H stable
Tele admit
Stop Protonix drip
given recent Cardioversion 02/12 will hold Eliquis; Recent Blood stool again, can restart anticoag 02/23
monitor H&H, transfuse prn Hgb<7
Preparation H prn hemorrhoid discomfort
Flex Sig 02/20 - Dark blood coating rectosigmoid - no active bleed
EGD unremarkable, no bleeding. Duodenal lymphangiectasia
Transfuse 1u prbc 02/21
Repeat hgb tomorrow
Could not tolerate rectal tube for rectal pressure noted after flex sig
Advance to low residue diet
Retrial steroids
Restart Ancoag 02/23
#Rectal distention/gas/constipation
Likely related to hemorrhoids
Add MiraLAX
Mag Citrate today
Prep H
#Hypokalemia
� Monitor and replete
#Left upper extremity swelling
� Follow-up Doppler: No DVT; right cephalic vein superficial thrombus;
#pAtrial Fibrillation s/p cardioversion 02/12
#VT s/p ppm/ICD
#HOCM
cont Amiodarone and Metoprolol XL 12.5 mg BID w/ holding parameters
Eliquis on hold, stop hep gtt due to recurrent bleeding again; restart Eliquis
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
#Neuropathy, lower ext numbness R>L
-Continue prednisone taper, 40 mg daily (dose reduction by 10 mg starting every until complete, patient advised to follow up with Neurology before completion). Restart prednisone 02/22�monitor
-discussed w/ patient and daughter Vilma, partial recovery from transverse myelitis is usually in the magnitude of months and full recovery is not guaranteed
Steroid Induced Hyperglycemia and Leukocytosis
-HgbA1c 4.8 in Feb 2025
-low dose sliding scale for now
Hypothyroidism
-Synthroid recently reduced from 150 mcg to 137 mcg daily due to concerns iatrogenic Hyperthyroidism
-follow up Repeat TFTs in early March recommended
Orthostatic Hypotension
-cont home midodrine 10 mg TID w/ holding parameters SBP>160
CKDIII
monitor
Chronic Diarrhea
Cdiff antigen pos in past but toxin neg received 10 day PO Vanc in January for suspect Cdiff
02/16 Cdiff neg
imodium prn
Allergic Rhinitis/Post-nasal drip/Cough
cough resolved at this time
Claritin HSPRN
#Patient suspected Parkinson's in the past
currently appears very asymptomatic, no significant rigidity or resting tremors
continued follow up with neurology advised
Small R kidney lesions, probably cyst
L adrenal lesion: old hemorrhage or cyst
-follow up CT in 6 mo recommended
History Positive Rheumatoid antibodies
-follow up with rheumatology recommended
MGUS
-Hematology evaluated 01/15 and assessed low risk MGUS, Repeat HEYDI& SPEP and Serum Light Chains in 3 months and follow up with PCP recommended
PT/OT
dvt ppx scds
Full Code
Anticipated Discharge: Within 24 hours
Subjective/Interval History
-
Date of Service: February 23, 2025
Still with some rectal discomfort
Objective Data
-
Labs:
Laboratory Results
02/23/25
05:54
WBC 7.3
Hgb 8.9 L
Hct 28.0 L
Plt Count 237
Sodium 141
Potassium 3.6
Chloride 108 H
Carbon Dioxide 28
BUN 54 H
Creatinine 1.1 H
Glucose 98
Calcium 8.1 L
Vital Signs:
Vital Signs
Temp Pulse Resp BP Pulse Ox
97.8 F 103 18 103/69 97
02/23/25 11:00 02/23/25 11:00 02/23/25 11:00 02/23/25 11:00 02/23/25 11:00
I&O
02/22/25 02/23/25 02/24/25
06:59 06:59 06:59
Intake Total 450 / 450 1740 / 1740
Balance 450 / 450 1740 / 1740
Review of Systems
-
History Source: Patient
All other systems: Not reviewed unless documented
Physical Exam
-
General: No Apparent Distress
HEENT: Moist Mucous Membranes, Anicteric and PERRLA
Respiratory: Clear to Auscultation; Negative Wheezes, Rales or Rhonchi
Cardiac: Irregular Rhythm; Negative Murmur, Rub or Gallop
GI: Soft, Nontender, Nondistended and Normal Bowel Sounds
Musculoskeletal: No Edema
Skin: Warm and Dry; Negative Rash, Ulcers or Lesions
Neuro: Awake and AO x 3
Hematologic / Lymphatic: No Lymphadenopathy
Psych: Calm
Data Reviewed
-
Diagnostic Radiology: Report Reviewed by me
Labs: Labs Reviewed by me
[2025-02-23 15:00] VITALS: BP 113/53
[2025-02-23] MEDS: CITROMA 300 ML PO (17:01)
[2025-02-23 17:06] LABS: Glucose - Point of Care 247 mg/dl (70-99)
[2025-02-23] MEDS: NOVOLOG FLEXPEN-LOW RESISTANCE 2 UNITS SC (17:08)
--- NOTE | 2025-02-23 18:20 | CM ---
[facility] is working on acute rehab placement. Patient has been referred to [facility]. There is expected to be an available bed on Wednesday02/26/25. Will need to obtain insurance authorization for acute rehab.
Plan: [facility]
[2025-02-23 20:00] VITALS: BP 117/70
[2025-02-23 21:53] LABS: Glucose - Point of Care 207 mg/dl (70-99)
[2025-02-23 23:52] VITALS: BP 120/69
[2025-02-24 03:30] VITALS: BP 105/61
[2025-02-24] MEDS: PREPARATION H MAX STRENGTH PAIN RELIEF CREAM 1 APPLIC RECTAL (04:22)
[2025-02-24 06:06] LABS: Hematocrit 26.5 % (37.0-47.0); Hemoglobin 8.3 g/dL (12.0-16.0); Mean Corp Hgb Conc. 31.3 g/dL (33.0-37.0); Mean Corpuscular Volume 105.6 fL (81.0-99.0); Platelet Count 241 10^3/uL (130-400); Red Cell Dist. Width 17.3 % (11.5-14.5)
[2025-02-24] MEDS: SYNTHROID 137 MCG PO (06:21)
[2025-02-24 06:30] LABS: Blood Urea Nitrogen 44 mg/dl (7-17); Calcium 8.0 mg/dl (8.4-10.2); Carbon Dioxide 26 mmol/L (22-30); Chloride 114 mmol/L (98-107); Estimated Creatinine Clearance 53 ml/min; Glucose 115 mg/dl (70-99); Potassium 3.7 mmol/L (3.5-5.1); Sodium 143 mmol/L (135-145); eGFR 56.95
[2025-02-24 07:00] VITALS: BP 111/66
[2025-02-24 08:05] LABS: Glucose - Point of Care 120 mg/dl (70-99)
[2025-02-24] MEDS: NOVOLOG FLEXPEN-LOW RESISTANCE SC (08:20)
[2025-02-24] MEDS: PACERONE 200 MG PO (08:24)
[2025-02-24] MEDS: VITAMIN B1 100 MG PO (08:24)
[2025-02-24] MEDS: ELIQUIS 5 MG PO ×2 (08:24→21:43)
[2025-02-24] MEDS: TOPROL XL 12.5 MG PO ×2 (08:24→21:43)
[2025-02-24] MEDS: MAGNESIUM OXIDE 400 MG PO (08:24)
[2025-02-24] MEDS: THERAGRAN 1 TABLET PO (08:25)
[2025-02-24] MEDS: DELTASONE 30 MG PO (08:25)
[2025-02-24] MEDS: DESENEX/MITRAZOL/ZEASORB 1 APPLIC TOPICAL ×2 (08:29→21:44)
[2025-02-24] MEDS: SENOKOT-S 1 TABLET PO (08:39)
[2025-02-24 11:00] VITALS: BP 107/73
[2025-02-24 11:49] LABS: Glucose - Point of Care 251 mg/dl (70-99)
[2025-02-24] MEDS: NOVOLOG FLEXPEN-LOW RESISTANCE 3 UNITS SC (11:57)
--- NOTE | 2025-02-24 14:42 | W.PN.HOSP.TC ---
Today's Communication/Plan
-
monitor hgb on Eliquis
BM regimen
Assessment / Plan
Assessment / Plan
Physical Exam
General: No pallor, cyanosis, or jaundice. Obese
HEENT: Throat clear. PERRLA Normocephalic atraumatic
NECK: Supple. No JVD Carotid Bruits
RESPIRATORY: Lungs clear to auscultation. No crackles wheezes stridor
CVS: S1, S2 normal. RRR. No murmur, rub or gallop.
ABDOMEN: Soft, non-tender. distension noted. BS+/normal.
EXTREMITIES: No peripheral cyanosis or edema.
FEDERAL MEDIATOR: AOx3 conversant coherent strength 4/5 Lower Ext's b/l, Numbness R>L
#Lower GI bleed
#Hemorrhoids
#Chronic Macrocytic Anemia
#Acute Blood Loss Anemia
#Diverticular bleed, resolved
VSS, H&H stable
Tele admit
Stop Protonix drip
given recent Cardioversion 02/12 will hold Eliquis; Recent Blood stool again, can restart anticoag 02/23
monitor H&H, transfuse prn Hgb<7
Preparation H prn hemorrhoid discomfort
Flex Sig 02/20 - Dark blood coating rectosigmoid - no active bleed
EGD unremarkable, no bleeding. Duodenal lymphangiectasia
Transfuse 1u prbc 02/21
Repeat hgb tomorrow
Could not tolerate rectal tube for rectal pressure noted after flex sig�continue bowel regimen�has improved symptoms
Advance to low residue diet
Retrial steroids
Restart Ancoag 02/23�no bloody or black stools, but hemoglobin did trend down slightly from yesterday, continue to monitor for additional day
#Rectal distention/gas/constipation
Likely related to hemorrhoids
Improved
Add MiraLAX
Mag Citrate if needed
Prep H
#Hypokalemia
� Monitor and replete
#Left upper extremity swelling
� Follow-up Doppler: No DVT; right cephalic vein superficial thrombus;
#pAtrial Fibrillation s/p cardioversion 02/12
#VT s/p ppm/ICD
#HOCM
cont Amiodarone and Metoprolol XL 12.5 mg BID w/ holding parameters
Eliquis on hold, stop hep gtt due to recurrent bleeding again; restart Eliquis 02/23
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
#Neuropathy, lower ext numbness R>L
-Continue prednisone taper, 40 mg daily (dose reduction by 10 mg starting every until complete, patient advised to follow up with Neurology before completion). Restart prednisone 02/22�monitor
-discussed w/ patient and daughter Vilma, partial recovery from transverse myelitis is usually in the magnitude of months and full recovery is not guaranteed
Steroid Induced Hyperglycemia and Leukocytosis
-HgbA1c 4.8 in Feb 2025
-low dose sliding scale for now
Hypothyroidism
-Synthroid recently reduced from 150 mcg to 137 mcg daily due to concerns iatrogenic Hyperthyroidism
-follow up Repeat TFTs in early March recommended
Orthostatic Hypotension
-cont home midodrine 10 mg TID w/ holding parameters SBP>160
CKDIII
monitor
Chronic Diarrhea
Cdiff antigen pos in past but toxin neg received 10 day PO Vanc in January for suspect Cdiff
02/16 Cdiff neg
imodium prn
Allergic Rhinitis/Post-nasal drip/Cough
cough resolved at this time
Claritin HSPRN
#Patient suspected Parkinson's in the past
currently appears very asymptomatic, no significant rigidity or resting tremors
continued follow up with neurology advised
Small R kidney lesions, probably cyst
L adrenal lesion: old hemorrhage or cyst
-follow up CT in 6 mo recommended
History Positive Rheumatoid antibodies
-follow up with rheumatology recommended
MGUS
-Hematology evaluated 01/15 and assessed low risk MGUS, Repeat HEYDI& SPEP and Serum Light Chains in 3 months and follow up with PCP recommended
PT/OT
dvt ppx scds
Full Code
Anticipated Discharge: Within 24 hours
Subjective/Interval History
-
Date of Service: February 24, 2025
Had loose bowel movements yesterday evening, still with some rectal pressure
Objective Data
-
Labs:
Laboratory Results
02/24/25
05:13
WBC 8.4
Hgb 8.3 L
Hct 26.5 L
Plt Count 241
Sodium 143
Potassium 3.7
Chloride 114 H
Carbon Dioxide 26
BUN 44 H
Creatinine 1.0
Glucose 115 H
Calcium 8.0 L
Vital Signs:
Vital Signs
Temp Pulse Resp BP Pulse Ox
97.5 F 111 18 107/73 96
02/24/25 11:00 02/24/25 12:17 02/24/25 11:00 02/24/25 12:17 02/24/25 11:00
I&O
02/23/25 02/24/25 02/25/25
06:59 06:59 06:59
Intake Total 1740 / 1740 960 / 960 480 / 480
Balance 1740 / 1740 960 / 960 480 / 480
Review of Systems
-
History Source: Patient
All other systems: Not reviewed unless documented
Data Reviewed
-
Diagnostic Radiology: Report Reviewed by me
Ultrasound: Report Reviewed by me
Labs: Labs Reviewed by me
[2025-02-24 15:00] VITALS: BP 124/73
[2025-02-24 17:09] LABS: Glucose - Point of Care 246 mg/dl (70-99)
[2025-02-24] MEDS: NOVOLOG FLEXPEN-LOW RESISTANCE 2 UNITS SC (17:26)
[2025-02-24 21:46] LABS: Glucose - Point of Care 170 mg/dl (70-99)
[2025-02-24 23:58] VITALS: BP 136/71
[2025-02-25] MEDS: SYNTHROID 137 MCG PO (05:43)
[2025-02-25] MEDS: PREPARATION H MAX STRENGTH PAIN RELIEF CREAM 1 APPLIC RECTAL (05:53)
[2025-02-25 07:39] LABS: Hematocrit 28.1 % (37.0-47.0); Hemoglobin 8.6 g/dL (12.0-16.0); Mean Corp Hgb Conc. 30.6 g/dL (33.0-37.0); Mean Corpuscular Volume 111.1 fL (81.0-99.0); Platelet Count 256 10^3/uL (130-400); Red Cell Dist. Width 16.8 % (11.5-14.5)
[2025-02-25 07:42] LABS: Glucose - Point of Care 96 mg/dl (70-99)
[2025-02-25] MEDS: NOVOLOG FLEXPEN-LOW RESISTANCE SC (07:44)
[2025-02-25] MEDS: THERAGRAN 1 TABLET PO (07:45)
[2025-02-25] MEDS: DELTASONE 30 MG PO (07:45)
[2025-02-25] MEDS: ELIQUIS 5 MG PO ×2 (07:45→20:48)
[2025-02-25] MEDS: TOPROL XL 12.5 MG PO ×2 (07:45→20:48)
[2025-02-25] MEDS: VITAMIN B1 100 MG PO (07:45)
[2025-02-25] MEDS: PACERONE 200 MG PO (07:45)
[2025-02-25] MEDS: MAGNESIUM OXIDE 400 MG PO (07:46)
[2025-02-25 07:48] VITALS: BP 130/73
[2025-02-25] MEDS: DESENEX/MITRAZOL/ZEASORB 1 APPLIC TOPICAL ×2 (07:51→20:49)
[2025-02-25 08:22] LABS: Blood Urea Nitrogen 37 mg/dl (7-17); Calcium 7.7 mg/dl (8.4-10.2); Carbon Dioxide 31 mmol/L (22-30); Chloride 108 mmol/L (98-107); Estimated Creatinine Clearance 53 ml/min; Glucose 94 mg/dl (70-99); Potassium 3.2 mmol/L (3.5-5.1); Sodium 142 mmol/L (135-145); eGFR 56.95
--- NOTE | 2025-02-25 11:08 | CM ---
Chart reviewed and plan is for patient to return to [facility] tomorrow, onsite case manager reviewed patient's physical therapy notes, and last PT note is from Wednesday and patient refused PT, patient needs to participate in PT and will need Auth for acute rehab
at [facility] to return to acute rehab.
Plan; Patient to return to [facility] on Wednesday, needs Auth.
[2025-02-25 12:33] LABS: Glucose - Point of Care 212 mg/dl (70-99)
[2025-02-25] MEDS: KCL ELIXIR 40 MEQ PO (12:49)
[2025-02-25] MEDS: NOVOLOG FLEXPEN-LOW RESISTANCE 2 UNITS SC (12:50)
--- NOTE | 2025-02-25 13:47 | W.PN.HOSP.TC ---
Today's Communication/Plan
-
Medically cleared�anticipate discharge tomorrow tomorrow; case briefer engaged
Bowel regimen
Monitor hemoglobin
Steroids, Eliquis
Assessment / Plan
Assessment / Plan
Physical Exam
General: No pallor, cyanosis, or jaundice. Obese
HEENT: Throat clear. PERRLA Normocephalic atraumatic
NECK: Supple. No JVD Carotid Bruits
RESPIRATORY: Lungs clear to auscultation. No crackles wheezes stridor
CVS: S1, S2 normal. RRR. No murmur, rub or gallop.
ABDOMEN: Soft, non-tender. distension noted. BS+/normal.
EXTREMITIES: No peripheral cyanosis or edema.
ENVIRONMENTAL TECHNOLOGY PROFESSOR: AOx3 conversant coherent strength 4/5 Lower Ext's b/l, Numbness R>L
#Lower GI bleed
#Hemorrhoids
#Chronic Macrocytic Anemia
#Acute Blood Loss Anemia
#Diverticular bleed, resolved
VSS, H&H stable
Tele admit
Stop Protonix drip
given recent Cardioversion 02/12 will hold Eliquis; Recent Blood stool again, can restart anticoag 02/23
monitor H&H, transfuse prn Hgb<7
Preparation H prn hemorrhoid discomfort
Flex Sig 02/20 - Dark blood coating rectosigmoid - no active bleed
EGD unremarkable, no bleeding. Duodenal lymphangiectasia
Transfused 1u prbc 02/21
Tolerating low residue diet
Retrialed steroids�tolerating
Restarted Ancoag 02/23�no bloody or black stools�hemoglobin remained stable
#Rectal distention/gas/constipation
Likely related to hemorrhoids, constipation
Improved
Add MiraLAX
Mag Citrate if needed
Prep H
#Hypokalemia
� Monitor and replete
#Left upper extremity swelling
� Follow-up Doppler: No DVT; right cephalic vein superficial thrombus;
#pAtrial Fibrillation s/p cardioversion 02/12
#VT s/p ppm/ICD
#HOCM
cont Amiodarone and Metoprolol XL 12.5 mg BID w/ holding parameters
Eliquis on hold, stop hep gtt due to recurrent bleeding again; restarted Eliquis 02/23
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
#Neuropathy, lower ext numbness R>L
-Continue prednisone taper, 40 mg daily (dose reduction by 10 mg starting every until complete, patient advised to follow up with Neurology before completion). Restarted prednisone 02/22�monitor
-discussed w/ patient and daughter Vilma, partial recovery from transverse myelitis is usually in the magnitude of months and full recovery is not guaranteed
Steroid Induced Hyperglycemia and Leukocytosis
-HgbA1c 4.8 in Feb 2025
-low dose sliding scale for now
Hypothyroidism
-Synthroid recently reduced from 150 mcg to 137 mcg daily due to concerns iatrogenic Hyperthyroidism
-follow up Repeat TFTs in early March recommended
Orthostatic Hypotension
-cont home midodrine 10 mg TID w/ holding parameters SBP>160
CKDIII
monitor
Chronic Diarrhea
Cdiff antigen pos in past but toxin neg received 10 day PO Vanc in January for suspect Cdiff
02/16 Cdiff neg
imodium prn
Allergic Rhinitis/Post-nasal drip/Cough
cough resolved at this time
Claritin HSPRN
Hypokalemia
� Monitor and replace
#Patient suspected Parkinson's in the past
currently appears very asymptomatic, no significant rigidity or resting tremors
continued follow up with neurology advised
Small R kidney lesions, probably cyst
L adrenal lesion: old hemorrhage or cyst
-follow up CT in 6 mo recommended
History Positive Rheumatoid antibodies
-follow up with rheumatology recommended
MGUS
-Hematology evaluated 01/15 and assessed low risk MGUS, Repeat HEYDI& SPEP and Serum Light Chains in 3 months and follow up with PCP recommended
PT/OT
dvt ppx scds
Full Code
Anticipated Discharge: Within 24 hours
Subjective/Interval History
-
Date of Service: February 25, 2025
Abnormal movements, loose, rectal pressure has improved. No bloody bowel movement
Objective Data
-
Labs:
Laboratory Results
02/25/25
07:06
WBC 8.6
Hgb 8.6 L
Hct 28.1 L
Plt Count 256
Sodium 142
Potassium 3.2 L
Chloride 108 H
Carbon Dioxide 31 H
BUN 37 H
Creatinine 1.0
Glucose 94
Calcium 7.7 L
Vital Signs:
Vital Signs
Temp Pulse Resp BP Pulse Ox
97.3 F 108 16 130/73 97
02/25/25 07:48 02/25/25 07:48 02/25/25 07:48 02/25/25 07:48 02/25/25 07:48
I&O
02/24/25 02/25/25 02/26/25
06:59 06:59 06:59
Intake Total 960 / 960 1200 / 1200
Balance 960 / 960 1200 / 1200
Review of Systems
-
History Source: Patient
All other systems: Not reviewed unless documented
Physical Exam
-
General: No Apparent Distress
HEENT: Moist Mucous Membranes, Anicteric and PERRLA
Respiratory: Clear to Auscultation; Negative Wheezes, Rales or Rhonchi
Cardiac: Irregular Rhythm; Negative Murmur, Rub or Gallop
GI: Soft, Nontender, Nondistended and Normal Bowel Sounds
Musculoskeletal: No Edema
Skin: Warm and Dry; Negative Rash, Ulcers or Lesions
Neuro: Awake and AO x 3
Hematologic / Lymphatic: No Lymphadenopathy
Psych: Calm
Data Reviewed
-
Diagnostic Radiology: Report Reviewed by me
Ultrasound: Report Reviewed by me
Labs: Labs Reviewed by me
[2025-02-25 15:56] VITALS: BP 151/78
[2025-02-25 17:44] LABS: Glucose - Point of Care 194 mg/dl (70-99)
[2025-02-25] MEDS: NOVOLOG FLEXPEN-LOW RESISTANCE 1 UNITS SC (17:46)
[2025-02-25 21:16] LABS: Glucose - Point of Care 222 mg/dl (70-99)
[2025-02-25 23:33] VITALS: BP 125/75
[2025-02-26] MEDS: SYNTHROID 137 MCG PO (05:45)
--- NOTE | 2025-02-26 07:35 | W.PN.HOSP.TC ---
Today's Communication/Plan
-
Anusol Suppository HS
preparation H prn
PT/OT appreciated Acute Rehab
Discharge planning
Assessment / Plan
Assessment / Plan
Physical Exam
General: No pallor, cyanosis, or jaundice. Obese
HEENT: Throat clear. PERRLA Normocephalic atraumatic
NECK: Supple. No JVD Carotid Bruits
RESPIRATORY: Lungs clear to auscultation. No crackles wheezes stridor
CVS: S1, S2 normal. RRR. No murmur, rub or gallop.
ABDOMEN: Soft, non-tender. distension noted. BS+/normal.
EXTREMITIES: No peripheral cyanosis or edema.
SALVAGER HELPER: AOx3 conversant coherent strength 4/5 Lower Ext's b/l, Numbness R>L
#Lower GI bleed
#Hemorrhoids
#Chronic Macrocytic Anemia
#Acute Blood Loss Anemia
#Diverticular bleed, resolved
VSS, H&H stable
Tele admit
Stop Protonix drip
given recent Cardioversion 02/12 will hold Eliquis; Recent Blood stool again, anticoag restarted 02/23
monitor H&H, transfuse prn Hgb<7
Preparation H prn hemorrhoid discomfort, Anusol Suppository HS
Flex Sig 02/20 - Dark blood coating rectosigmoid - no active bleed
EGD unremarkable, no bleeding. Duodenal lymphangiectasia
Transfused 1u prbc 02/21
Tolerating low residue diet
Retrialed steroids�tolerating
Restarted Ancoag 02/23�no bloody or black stools�hemoglobin remained stable
#Rectal distention/gas/constipation
Likely related to hemorrhoids, constipation
Improved
Add MiraLAX
Mag Citrate if needed
Prep H
#Hypokalemia
� Monitor and replete
#Left upper extremity swelling
� Follow-up Doppler: No DVT; right cephalic vein superficial thrombus;
- Ice elevation LUE
#pAtrial Fibrillation s/p cardioversion 02/12
#VT s/p ppm/ICD
#HOCM
cont Amiodarone and Metoprolol XL 12.5 mg BID w/ holding parameters
Eliquis on hold, stop hep gtt due to recurrent bleeding again; restarted Eliquis 02/23
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
#Neuropathy, lower ext numbness R>L
-Continue prednisone taper, 30 mg daily (dose reduction by 10 mg starting every until complete, patient advised to follow up with Neurology before completion). Restarted prednisone 02/22�monitor
-discussed w/ patient and daughter Vilma, partial recovery from transverse myelitis is usually in the magnitude of months and full recovery is not guaranteed
Steroid Induced Hyperglycemia and Leukocytosis
-HgbA1c 4.8 in Feb 2025
-low dose sliding scale for now
Hypothyroidism
-Synthroid recently reduced from 150 mcg to 137 mcg daily due to concerns iatrogenic Hyperthyroidism
-follow up Repeat TFTs in early March recommended
Orthostatic Hypotension
-cont home midodrine 10 mg TID w/ holding parameters SBP>160
CKDIII
monitor
Chronic Diarrhea
Cdiff antigen pos in past but toxin neg received 10 day PO Vanc in January for suspect Cdiff
02/16 Cdiff neg
imodium prn
Allergic Rhinitis/Post-nasal drip/Cough
cough resolved at this time
Claritin HSPRN
Hypokalemia
� Monitor and replace
#Patient suspected Parkinson's in the past
currently appears very asymptomatic, no significant rigidity or resting tremors
continued follow up with neurology advised
Small R kidney lesions, probably cyst
L adrenal lesion: old hemorrhage or cyst
-follow up CT in 6 mo recommended
History Positive Rheumatoid antibodies
-follow up with rheumatology recommended
MGUS
-Hematology evaluated 01/15 and assessed low risk MGUS, Repeat HEYDI& SPEP and Serum Light Chains in 3 months and follow up with PCP recommended
PT/OT appreciated Acute Rehab
dvt ppx scds
Full Code
Discussed with patient and patient's daughter Vilma
I spent a total of 40 minutes with the patient or on the floor. More than 50% of this time involved counseling and coordination of care.
Anticipated Discharge: Within 24 hours
Subjective/Interval History
-
Date of Service: February 26, 2025
No acute distress, appears comfortable at this time, reports pain with bowel movements. Denies blood in stools.
Objective Data
-
Labs:
Laboratory Results
02/26/25
06:19
WBC Pending
Hgb Pending
Hct Pending
Plt Count Pending
Sodium Pending
Potassium Pending
Chloride Pending
Carbon Dioxide Pending
BUN Pending
Creatinine Pending
Glucose Pending
Calcium Pending
Vital Signs:
Vital Signs
Temp Pulse Resp BP Pulse Ox
98.1 F 103 16 125/75 98
02/25/25 23:33 02/25/25 23:33 02/25/25 23:33 02/25/25 23:33 02/25/25 23:33
I&O
02/25/25 02/26/25 02/27/25
06:59 06:59 06:59
Intake Total 1200 / 1200 900 / 900
Balance 1200 / 1200 900 / 900
[2025-02-26 07:38] LABS: Glucose - Point of Care 112 mg/dl (70-99)
[2025-02-26] MEDS: NOVOLOG FLEXPEN-LOW RESISTANCE SC (07:41)
[2025-02-26 07:45] VITALS: BP 121/79
[2025-02-26] MEDS: VITAMIN B1 100 MG PO (07:55)
[2025-02-26] MEDS: DELTASONE 30 MG PO (07:56)
[2025-02-26] MEDS: PACERONE 200 MG PO (07:56)
[2025-02-26] MEDS: MAGNESIUM OXIDE 400 MG PO (07:56)
[2025-02-26] MEDS: THERAGRAN 1 TABLET PO (07:56)
[2025-02-26] MEDS: TOPROL XL 12.5 MG PO ×2 (07:56→20:37)
[2025-02-26] MEDS: ELIQUIS 5 MG PO ×2 (07:56→20:37)
[2025-02-26 07:58] LABS: Hematocrit 29.0 % (37.0-47.0); Hemoglobin 8.7 g/dL (12.0-16.0); Mean Corp Hgb Conc. 30.0 g/dL (33.0-37.0); Mean Corpuscular Volume 110.7 fL (81.0-99.0); Platelet Count 292 10^3/uL (130-400); Red Cell Dist. Width 16.3 % (11.5-14.5)
[2025-02-26] MEDS: DESENEX/MITRAZOL/ZEASORB 1 APPLIC TOPICAL ×2 (08:01→20:36)
[2025-02-26 08:55] LABS: Blood Urea Nitrogen 28 mg/dl (7-17); Calcium 7.9 mg/dl (8.4-10.2); Carbon Dioxide 30 mmol/L (22-30); Chloride 109 mmol/L (98-107); Estimated Creatinine Clearance 53 ml/min; Glucose 113 mg/dl (70-99); Potassium 3.5 mmol/L (3.5-5.1); Sodium 140 mmol/L (135-145); eGFR 56.95
[2025-02-26 12:06] LABS: Glucose - Point of Care 161 mg/dl (70-99)
[2025-02-26 12:23] VITALS: BP 136/99; BP 146/87; PULSE 95; O2SAT 100
[2025-02-26] MEDS: NOVOLOG FLEXPEN-LOW RESISTANCE 1 UNITS SC (12:40)
--- NOTE | 2025-02-26 14:58 | CM ---
Spoke with [facility] at [facility] ([facility])
Request for Acute Rehab at [facility]
Pended reference # [id number]
clinicals faxed to [phone]
Await determination
[2025-02-26 15:49] VITALS: BP 144/81
[2025-02-26 16:35] LABS: Glucose - Point of Care 221 mg/dl (70-99)
[2025-02-26] MEDS: NOVOLOG FLEXPEN-LOW RESISTANCE 2 UNITS SC (16:59)
[2025-02-26] MEDS: ANUSOL HC 25 MG RECTAL (20:37)
[2025-02-26 21:50] LABS: Glucose - Point of Care 146 mg/dl (70-99)
[2025-02-26 23:06] VITALS: BP 161/95
[2025-02-27] MEDS: SYNTHROID 137 MCG PO (05:14)
--- NOTE | 2025-02-27 07:37 | W.PN.HOSP.TC ---
Addendum entered and electronically signed by Car Dawson MD 02/28/25 08:40:
Diverticular bleed possible association/exacerbation by Eliquis use
Addendum entered and electronically signed by Car Dawson MD 02/28/25 08:39:
UTI ruled out, urine cx contaminated but not significant symptoms UTI
Original Note:
Today's Communication/Plan
-
discharge
Assessment / Plan
Assessment / Plan
Physical Exam
General: No pallor, cyanosis, or jaundice. Obese
HEENT: Throat clear. PERRLA Normocephalic atraumatic
NECK: Supple. No JVD Carotid Bruits
RESPIRATORY: Lungs clear to auscultation. No crackles wheezes stridor
CVS: S1, S2 normal. RRR. No murmur, rub or gallop.
ABDOMEN: Soft, non-tender. distension noted. BS+/normal.
EXTREMITIES: No peripheral cyanosis or edema.
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
79F pAfib Eliquis recent prolonged hospitalizations suspected Transverse Myelitis vs Multiple Sclerosis vs Clinical Isolated Syndrome, on slow steroid taper, Spinal Stenosis, Steroid induced Hyperglycemia, Obesity, Hypothyroidism, CKDIII,
hemorrhoids, HOCM, hx Vtach PPM/ICD, Rheumatoid arthritis, MGUS. Patient was discharged to Acute Rehab 02/05-02/09, returned for evaluation symptomatic orthostatic hypotension resolved with adjustment cardiac medications (discontinuation Lasix 20
mg daily and reduction Metoprolol to 12.5 mg BID) and successful cardioversion 02/12 symptomatic afib. Discharged to Acute rehab 02/17, patient returns next day d/t new onset large bright red blood per rectum with clots overnight. VSS, Hgb
baseline. Patient otherwise reported feeling well denies lightheadedness sob.
#Lower GI bleed
#Hemorrhoids
#Chronic Macrocytic Anemia
#Acute Blood Loss Anemia
#Diverticular bleed, resolved
VSS, H&H stable
Tele admit
briefly on Protonix drip completed
given recent Cardioversion 02/12 patient was briefly on hep gtt while Eliquis was held,
hep gtt would be placed on hold due to persistence bloody stools and worsening anemia.
Patient received once transfusion for Hgb 6.9 with appropriate response noted. H&H remained stable since transfusion.
Flex Sig 02/20 noted Dark blood coating rectosigmoid- no active bleed.
EGD unremarkable, no bleeding. Duodenal lymphangiectasia.
GI eval appreciated suspected diverticular bleed since resolved.
Tolerating low residue diet.
Restarted Ancoag Eliquis 02/23�no bloody or black stools�hemoglobin remained stable
#Rectal distention/gas/constipation
Likely related to hemorrhoids, constipation
Improved
Add MiraLAX
Mag Citrate if needed
Prep H prn, Anusol HS finite course
#Hypokalemia
� Monitor and replete
#Left upper extremity swelling, likely superficial thrombophlebitis
� Follow-up Doppler: No DVT; right cephalic vein superficial thrombus;
- Ice elevation LUE prn
#pAtrial Fibrillation s/p cardioversion 02/12
#VT s/p ppm/ICD
#HOCM
cont Amiodarone and Metoprolol XL 12.5 mg BID w/ holding parameters
restarted Eliquis 02/23 tolerating
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
#Neuropathy, lower ext numbness R>L
-Continue prednisone taper, 30 mg daily (dose reduction by 10 mg starting every until complete, patient advised to follow up with Neurology before completion). Restarted prednisone 02/22�monitor
-discussed w/ patient and daughter Vilma, partial recovery from transverse myelitis is usually in the magnitude of months and full recovery is not guaranteed
Steroid Induced Hyperglycemia and Leukocytosis
-HgbA1c 4.8 in Feb 2025
-low dose sliding scale for now
Hypothyroidism
-Synthroid recently reduced from 150 mcg to 137 mcg daily due to concerns iatrogenic Hyperthyroidism
-follow up Repeat TFTs in early March recommended
Orthostatic Hypotension
-cont home midodrine 10 mg TID w/ holding parameters SBP>160
CKDIII
monitor
Chronic Diarrhea
Cdiff antigen pos in past but toxin neg received 10 day PO Vanc in January for suspect Cdiff
02/16 Cdiff neg
imodium prn
Allergic Rhinitis/Post-nasal drip/Cough
cough resolved at this time
Claritin HSPRN
Hypokalemia
� Monitor and replace
#Patient suspected Parkinson's in the past
currently appears very asymptomatic, no significant rigidity or resting tremors
continued follow up with neurology advised
Small R kidney lesions, probably cyst
L adrenal lesion: old hemorrhage or cyst
-follow up CT in 6 mo recommended
History Positive Rheumatoid antibodies
-follow up with rheumatology recommended
MGUS
-Hematology evaluated 01/15 and assessed low risk MGUS, Repeat HEYDI& SPEP and Serum Light Chains in 3 months and follow up with PCP recommended
PT/OT appreciated Acute Rehab
dvt ppx scds
Full Code
Medically stable for discharge Acute Rehab with outpatient follow up recommendations.
Discussed with patient and patient's daughter Vilma
Total Time Preparing Discharge ___40____ minutes including examination of the patient, summary of the hospital stay, instructions for continuing care to all relevant caregivers; and preparation of discharge records, prescriptions, and referral
forms if necessary.
Anticipated Discharge: Today
Subjective/Interval History
-
Date of Service: February 27, 2025
no acute distress, resting comfortably in bed. Reports improvement in rectal pain since start anusol suppository. Denies new acute issues.
Objective Data
-
Labs:
Laboratory Results
02/27/25
06:00
WBC Pending
Hgb Pending
Hct Pending
Plt Count Pending
Sodium Pending
Potassium Pending
Chloride Pending
Carbon Dioxide Pending
BUN Pending
Creatinine Pending
Glucose Pending
Calcium Pending
Vital Signs:
Vital Signs
Temp Pulse Resp BP Pulse Ox
97.8 F 93 18 161/95 97
02/26/25 23:06 02/26/25 23:06 02/26/25 23:06 02/26/25 23:06 02/26/25 23:06
I&O
02/26/25 02/27/25 02/28/25
06:59 06:59 06:59
Intake Total 900 / 900 1000 / 1000
Balance 900 / 900 1000 / 1000
[2025-02-27 07:45] VITALS: BP 141/84
[2025-02-27 07:51] LABS: Glucose - Point of Care 113 mg/dl (70-99)
[2025-02-27 08:09] LABS: Hematocrit 27.9 % (37.0-47.0); Hemoglobin 8.5 g/dL (12.0-16.0); Mean Corp Hgb Conc. 30.5 g/dL (33.0-37.0); Mean Corpuscular Volume 110.3 fL (81.0-99.0); Platelet Count 289 10^3/uL (130-400); Red Cell Dist. Width 16.3 % (11.5-14.5)
[2025-02-27 08:36] LABS: Blood Urea Nitrogen 26 mg/dl (7-17); Calcium 8.2 mg/dl (8.4-10.2); Carbon Dioxide 29 mmol/L (22-30); Chloride 110 mmol/L (98-107); Estimated Creatinine Clearance 59 ml/min; Glucose 111 mg/dl (70-99); Potassium 3.4 mmol/L (3.5-5.1); Sodium 140 mmol/L (135-145); eGFR > 60.00
[2025-02-27] MEDS: NOVOLOG FLEXPEN-LOW RESISTANCE SC (08:48)
[2025-02-27] MEDS: PACERONE 200 MG PO (09:25)
[2025-02-27] MEDS: THERAGRAN 1 TABLET PO (09:25)
[2025-02-27] MEDS: MAGNESIUM OXIDE 400 MG PO (09:26)
[2025-02-27] MEDS: ELIQUIS 5 MG PO (09:26)
[2025-02-27] MEDS: TOPROL XL 12.5 MG PO (09:26)
[2025-02-27] MEDS: DELTASONE 20 MG PO (09:26)
[2025-02-27] MEDS: VITAMIN B1 100 MG PO (09:27)
[2025-02-27] MEDS: DESENEX/MITRAZOL/ZEASORB 1 APPLIC TOPICAL (09:27)
--- NOTE | 2025-02-27 10:34 | PN.CDI ---
CDI
- -
CDI:
Physician Documentation Request
Admit Date: 02/18/25 09:23
Dear Doctor Eunice,
Patient admitted with GI bleed, diverticular.
Eliquis was held.
Please clarify if a relationship exist between these conditions:
Yes, probable diverticular bleed is related to/associated with/due to/exacerbated by Eliquis
No, probable diverticular bleed is not related to/associated with/due to/exacerbated by Eliquis
Unable to determine
Use of terms such as suspected, likely, concern for, or probable (associated with a specific diagnosis that is being evaluated, monitored, or treated as if it exists) are acceptable and can be coded in the inpatient setting, when documented at the
time of discharge.
Thank you,
Kathryn Yo RN BSN
CDI Specialist
tiger text
Please use your independent medical judgment in providing your response.
--- NOTE | 2025-02-27 10:41 | PN.CDI ---
CDI
- -
CDI:
Physician Documentation Request
Admit Date: 02/18/25 09:23
Dear Doctor Eunice,
Please review the following and provide your response in the progress notes.
Clinical Indicators:
The diagnosis of UTI was documented on 02/21, but is not consistently noted in subsequent documentation.
Ceftriaxone given on 02/20 and 02/21
Please clarify the following:
____ - UTI was present
____ - UTI was ruled out
____ - Other
Use of terms such as suspected, likely, concern for, or probable (associated with a specific diagnosis that is being evaluated, monitored, or treated as if it exists) are acceptable and can be coded in the inpatient setting, when documented at the
time of discharge.
Thank you,
Kathryn Yo RN, BSN
CDI Specialist
tiger text
Please use your independent medical judgment in providing your response.
[2025-02-27 11:29] LABS: Glucose - Point of Care 157 mg/dl (70-99)
[2025-02-27 11:57] VITALS: BP 124/86
--- NOTE | 2025-02-27 12:47 | CM ---
Addendum entered by Shaneka Trinh 02/27/25 15:12:
TC from [facility] at [facility]
Approved acute Rehab at [facility]
Auth # [id number]
Reference# [id number]
Start date 02/27/25, NRD 03/05/25
Updates to - must include teem meeting notes and dcp notes.
Original Note:
TC to [facility] [phone]
ref# [id number] for Acute Rehab is still pending, has been sent to the medical pathologist for review.
[2025-02-27] MEDS: NOVOLOG FLEXPEN-LOW RESISTANCE 1 UNITS SC (13:02)
[2025-02-27 15:29] LABS: Glucose - Point of Care 207 mg/dl (70-99)
--- NOTE | 2025-02-27 15:59 | CM ---
[facility] [place] has an available bed today. discussed transfer with patient. IMM given.
[facility] [place]
tel# for Report: [phone]
fax# [phone]
Plan: transfer to [facility] [place] today
[2025-02-27 16:03] VITALS: BP 134/72
--- NOTE | 2025-02-27 16:51 | W.DCSUMMARY ---
Discharge Summary
Discharge Data
Date of Admission: 02/18/25
Date of Discharge: 02/27/25
-
Pending Results: No
Discharge Plan
-
Patient Disposition: Acute Rehab Facility
Discharge Diagnosis/Procedures: Diverticular Hemorrhage
Atrial Fibrillation status post successful cardioversion 02/12/25
Orthostatic Hypotension
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
Spinal Stenosis
Steroid induced Hyperglycemia
Obesity
Chronic Intermittent Diarrhea
Hypothyroidism
Chronic Kidney Disease Stage III
Hemorrhoids
Hypertrophic Obstructive Cardiomyopathy
History Ventricular Tachycardia status post Defibrillator
History Pacemaker placement
Small R kidney lesions, probably cyst
L adrenal lesion: old hemorrhage or cyst
History Positive Rheumatoid antibodies
Macrocytic anemia
MGUS
Mild Hypokalemia
Superficial Thrombus Right Cephalic Vain
Condition: Fair
Diet: Low Residue
Additional Diets: Continue Low Residue Diet for 1 week then advance as tolerated
Activity: With assistance and With Walker
Driving Restrictions: Not until seen by your Dr
Bathing Restrictions: None
Blood Work: Repeat CBC and BMP with a primary care provider in 1 week of discharge. Repeat Thyroid Function Test with primary care provider in 2 weeks of discharge.
Repeat HEYDI& SPEP and Serum Light Chains in 2 months with primary care provider to follow up on MGUS
Others Tests: repeat CT abd/pelvis in 5 months of discharge
Other Services: PT and OT
Activity Restrictions/Additional Instructions:
Follow up with primary care provider in 1 week of discharge, Neurology in 1-2 weeks of discharge, Rheumatology and Cardiology in 2-3 weeks of discharge, and GI in 1-2 months of discharge.
Anusol suppository prescribed for hemorrhoid pain, continue for 5 nights then stop.
On prednisone taper for transverse myelitis vs multiple sclerosis vs clinical isolated syndrome:
20 mg daily, reduce to 10 mg daily on Mar 06 2025 and continue for 7 days then stop.
Referrals:
Cuco Adame MD [Active, Gastroenterology] - in one to two months
Bernardino Medrano MD [Active, Neurology] - in one to two weeks
Felice Mccain MD [Active, Rheumatology] - in two to three weeks
Kyung Ventura DO [Active, Cardiology] - in two to three weeks
Jp Mccabe MD [Family Provider, Internal Medicine] - in one week
Prescriptions:
New
hydrocortisone acetate 25 mg Suppository
25 mg IN HS Qty: 5 0RF
prednisone 10 mg Tablet
See Rx Instructions .ROUTE .COMPLEX Qty: 19 0RF
Rx Instructions:
Take By Mouth:
20 mg daily x6 days, 10 mg daily x7 days
miconazole nitrate [Miconazorb AF] 2 % Powder
1 applic topical BID Qty: 85 0RF
Rx Instructions:
APPLY TO ABDOMINAL
FOLDS AND GROIN FOR
MASD
Continued
Eliquis 5 MG tablet
5 mg PO BID Qty: 60 11RF
cyanocobalamin (vitamin B-12) 1,000 MCG tablet
1,000 mcg PO DAILY
amiodarone [Pacerone] 200 MG tablet
200 mg PO DAILY
tdozaqbpblyt-xvjzxskh-vryrzq Tablet
1 tab PO DAILY
thiamine mononitrate (vit B1) 100 mg Tablet
100 mg PO DAILY Qty: 100 0RF
Preparation H Maximum Strength 0.25-1 % Cream
1 applic IN Q6HPRN PRN (Reason: hemorrhoid discomfort) Qty: 51 0RF
magnesium oxide 400 mg magnesium Tablet
400 mg PO DAILY
midodrine 5 mg tablet
10 mg PO TID@0800,1300,1800
loratadine 10 mg Tablet
10 mg PO HS PRN (Reason: allergy symptoms/post-nasal drip) Qty: 30 0RF
levothyroxine 137 mcg Tablet
137 mcg PO DAILY @ 0600 Qty: 30 0RF
loperamide 2 mg Capsule
2 mg PO Q6HPRN PRN (Reason: diarrhea) Qty: 10 0RF
metoprolol succinate 25 mg Tablet Extended Release 24 Hr
12.5 mg PO BID Qty: 30 0RF
pantoprazole 40 mg Tablet,Delayed Release (Dr/Ec)
40 mg PO DAILY Qty: 30 0RF
Rx Instructions:
ok to discontinue when off steroids
Discontinued
furosemide 20 mg Tablet
20 mg PO DAILY
prednisone 10 mg Tablet
See Rx Instructions .ROUTE .COMPLEX Qty: 50 0RF
Rx Instructions:
Take By Mouth (reduce 10 mg every Tu):
40 mg daily x2 days,
30 mg daily x7 days, 20 mg daily x7 days,
10 mg daily x7 days
Discharge Orders:
Discharge Patient (As Directed); Ordered 02/27/25
Ordered By: Car Dawson
Discharge Date and Time
Print Language: SAO TOMEAN
[2025-02-27] MEDS: KCL 40 MEQ PO (16:54)
[2025-02-27] MEDS: NOVOLOG FLEXPEN-LOW RESISTANCE 2 UNITS SC (17:39)
== END 2025-02-27 18:44 | DRG 378 ==
LOC: 4 WEST ACU 09:23
PROVIDERS: Internal Medicine; Specialist; ADMITTING PHYSICIAN Internal Medicine; CONSULT PHYSICIAN Internal Medicine; EMERGENCY PHYSICIAN Emergency Medicine; FAMILY PHYSICIAN Internal Medicine
PROC: 0DJD8ZZ Inspection of Lower Intestinal Tract, Via Natural or Artificial Opening Endoscopic (ICD-10-PCS; 2025-02-20)
PROC: 30233N1 Transfusion of Nonautologous Red Blood Cells into Peripheral Vein, Percutaneous Approach (ICD-10-PCS; 2025-02-21)
PROC: 0DJ08ZZ Inspection of Upper Intestinal Tract, Via Natural or Artificial Opening Endoscopic (ICD-10-PCS; 2025-02-21)
DX: K57.31 Diverticulosis of large intestine without perforation or abscess with bleeding (principal); D62 Acute posthemorrhagic anemia; I42.1 Obstructive hypertrophic cardiomyopathy; I82.611 Acute embolism and thrombosis of superficial veins of right upper extremity; D68.32 Hemorrhagic disorder due to extrinsic circulating anticoagulants; I48.0 Paroxysmal atrial fibrillation; E66.9 Obesity, unspecified; E03.9 Hypothyroidism, unspecified; N18.30 Chronic kidney disease, stage 3 unspecified; M06.9 Rheumatoid arthritis, unspecified; D47.2 Monoclonal gammopathy; T38.0X5A Adverse effect of glucocorticoids and synthetic analogues, initial encounter; I95.1 Orthostatic hypotension; K52.9 Noninfective gastroenteritis and colitis, unspecified; J30.9 Allergic rhinitis, unspecified; E27.9 Disorder of adrenal gland, unspecified; N28.1 Cyst of kidney, acquired; K64.9 Unspecified hemorrhoids; D53.9 Nutritional anemia, unspecified; R73.9 Hyperglycemia, unspecified; E53.8 Deficiency of other specified B group vitamins; E78.00 Pure hypercholesterolemia, unspecified; E87.6 Hypokalemia; K31.7 Polyp of stomach and duodenum; K31.819 Angiodysplasia of stomach and duodenum without bleeding; I12.9 Hypertensive chronic kidney disease with stage 1 through stage 4 chronic kidney disease, or unspecified chronic kidney disease; I87.2 Venous insufficiency (chronic) (peripheral); G62.89 Other specified polyneuropathies; T45.515A Adverse effect of anticoagulants, initial encounter; Z68.37 Body mass index [BMI] 37.0-37.9, adult; Z79.01 Long term (current) use of anticoagulants; Z79.52 Long term (current) use of systemic steroids; Z79.899 Other long term (current) drug therapy; Z87.891 Personal history of nicotine dependence; Z95.810 Presence of automatic (implantable) cardiac defibrillator
CPT/HCPCS: 74022; 80048; 80053; 81003; 81015; 82607; 82728; 82746; 82962; 83540; 83550; 83735; 84100; 85014; 85018; 85025; 85027; 85610; 85730; 86850; 86900; 86901; 86920; 87086; 93005; 93970; 97163; 97167; 97530; 97535; 99285; P9016